=== PATIENT | female | born 1965 | race African-American/Black ===

== ENCOUNTER 2018-02-09 11:46 | Emergency (ER) | payer SELFPAY ==
[2018-02-09 12:03] VITALS: BP 134/73
--- NOTE | 2018-02-09 12:21 | EDM.PDOC ---
ED HPI GENERAL MEDICAL PROBLEM - General Chief Complaint: ENT Problem Stated Complaint: CHIPPED TOOTH Time Seen by Provider: 02/09/18 12:07 Source of Information: Reports: Patient History Limitations: Reports: No Limitations - History of Present Illness INITIAL COMMENTS - FREE TEXT/NARRATIVE: HISTORY AND PHYSICAL: History of present illness: Patient is a 52-year-old female who is brought to the emergency room with complaints of a chipped tooth. Dates while cleaning her bathroom she slipped resulting in her upper jaw hitting the corner of the sink. She states that she has a dentist appointment on 02/16/2018 to further evaluation and management. She denies any loss of consciousness, nausea, vomiting, change in vision or headache. Review of systems: As per history of present illness and below otherwise all systems reviewed and negative. Past medical history: As per history of present illness and as reviewed below otherwise noncontributory. Surgical history: As per history of present illness and as reviewed below otherwise noncontributory. Social history: No reported history of drug or alcohol abuse. Family history: As per history of present illness and as reviewed below otherwise noncontributory. Physical exam: General: Well-developed and well-nourished 52-year-old -[place] female. Alert and oriented. Nontoxic appearing and in no acute distress. HEENT: Atraumatic, normocephalic, pupils equal and reactive bilaterally, negative for conjunctival pallor or scleral icterus, mucous membranes moist, throat clear, neck supple, nontender, trachea midline. Tooth #8 is severely decayed, tooth #9 is chipped. Gums are mildly erythematous. No drooling or trismus noted. No meningeal signs Lungs: Clear to auscultation, breath sounds equal bilaterally, chest nontender. Heart: S1S2, regular rate and rhythm without overt murmur Abdomen: Soft, nondistended, nontender. Negative for masses or hepatosplenomegaly. Negative for costovertebral tenderness. Pelvis: Stable nontender. Genitourinary: Deferred. Rectal: Deferred. Skin: Intact, warm, dry. No lesions or rashes noted. Extremities: Atraumatic, negative for cords or calf pain. Neurovascular unremarkable. Neuro: Awake, alert, oriented. Cranial nerves II through XII unremarkable. Cerebellum unremarkable. Motor and sensory unremarkable throughout. Exam nonfocal. Notes: No root exposure with the dental fracture. Will give patient #15 [place] (NRF) and Pen Vk. Will give antibiotics due to her poor dental care and decay. She has an appointment next week with dentist. Diagnostics: [] Therapeutics: Declines Impression: Dental Fracture Plan: 1. Take your medication as prescribed. Tylenol and Ibuprofen as needed for pain management. [place] as needed for moderate to sever pain, will cause drowsiness, so do not take while driving or needing to be functioning outside the house. 2. Follow up with your dentist as you have arranged. Return to the ED as needed as discussed. Definitive disposition and diagnosis as appropriate pending reevaluation and review of above. Duration: Day(s): Location: Reports: Face Right Upper Tooth/Teeth Pain Score (Numeric/FACES): 10 - Related Data Allergies Allergy/AdvReac Type Severity Reaction Status Date / Time No Known Allergies Allergy Verified 02/09/18 12:03 Home Meds: Home Meds metFORMIN [Glucophage] 1,000 mg PO BID 07/02/14 [History] Glimepiride [Amaryl] 2 mg PO DAILY 11/28/14 [History] Aspirin/Calcium Carbonate/Mag [Aspirin Buffered 325 mg Tab] 325 mg PO DAILY [History] Albuterol [Ventolin HFA] 8 gm INH Q2H PRN 06/26/15 [History] Lisinopril 20 mg PO DAILY 12/24/15 [History] Ranitidine HCl 20 mg PO DAILY 02/09/18 [History] Past Medical History HEENT History: Reports: Other (See Below) Other HEENT History: ear infection Cardiovascular History: Reports: High Cholesterol, Hypertension Respiratory History: Reports: Asthma, Sleep Apnea Gastrointestinal History: Reports: GERD Genitourinary History: Reports: None 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 OB/BYN History: 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 Musculoskeletal History: Reports: Other (See Below) Other Musculoskeletal History: ankle fracture - 2014 Neurological History: Reports: None Psychiatric History: Reports: None Endocrine/Metabolic History: Reports: Diabetes, Type II Hematologic History: Reports: None Immunologic History: Reports: None Oncologic (Cancer) History: Reports: None Dermatologic History: Reports: None - Infectious Disease History Infectious Disease History: Reports: None - Past Surgical History Musculoskeletal Surgical History: Reports: Other (See Below) Social & Family History - Family History Family Medical History: Noncontributory Cardiac: Reports: Hypertension, [place] Respiratory: Reports: Asthma OBGYN: Reports: Musculoskeletal: Reports: Arthritis Neurological: Reports: CVA Endocrine/Metabolic: Reports: Diabetes, type II - Caffeine Use Caffeine Use: Reports: None ED ROS ENT - Review of Systems Review Of Systems: ROS reveals no pertinent complaints other than HPI. ED EXAM, ENT - Physical Exam Exam: See Below (See dictation) Course - Vital Signs Last Recorded V/S: Last Vital Signs Temp 96.1 F 02/09/18 11:58 Pulse 67 02/09/18 11:58 Resp 18 02/09/18 11:58 BP 134/73 02/09/18 11:58 Pulse Ox 99 02/09/18 11:58 Departure - Departure Time of Disposition: 12:22 Disposition: Home, Self-Care 01 Clinical Impression: Tooth fracture Qualifiers: Encounter type: initial encounter Fracture type: closed Qualified Code(s): S02.5XXA - Fracture of tooth (traumatic), initial encounter for closed fracture - Discharge Information Instructions: Tooth Injuries, [id number] Referrals: PCP,None [Primary Care Provider] - Forms: ED Department Discharge Additional Instructions: The following information is given to patients seen in the emergency department who are being discharged to home. This information is to outline your options for follow-up care. We provide all patients seen in our emergency department with a follow-up referral. The need for follow-up, as well as the timing and circumstances, are variable depending upon the specifics of your emergency department visit. If you don't have a primary care physician on staff, we will provide you with a referral. We always advise you to contact your personal physician following an emergency department visit to inform them of the circumstance of the visit and for follow-up with them and/or the need for any referrals to a consulting specialist. The emergency department will also refer you to a specialist when appropriate. This referral assures that you have the opportunity for follow-up care with a specialist. All of these measure are taken in an effort to provide you with optimal care, which includes your follow-up. Under all circumstances we always encourage you to contact your private physician who remains a resource for coordinating your care. When calling for follow-up care, please make the office aware that this follow-up is from your recent emergency room visit. If for any reason you are refused follow-up, please contact the [facility] Emergency Department at and asked to speak to the emergency department charge nurse. [facility] [address] [place] [id number] 1. Take your medication as prescribed. Tylenol and Ibuprofen as needed for pain management. [place] as needed for moderate to sever pain, will cause drowsiness, so do not take while driving or needing to be functioning outside the house. 2. Follow up with your dentist as you have arranged. Return to the ED as needed as discussed.
== END 2018-02-09 13:37 | disposition home or self-care (01) ==
LOC: MW.ED 11:46
DX: S02.5XXA Fracture of tooth (traumatic), initial encounter for closed fracture (principal); E11.9 Type 2 diabetes mellitus without complications; I10 Essential (primary) hypertension; X58.XXXA Exposure to other specified factors, initial encounter
CPT/HCPCS: 99282

== ENCOUNTER 2018-02-21 19:37 | Emergency (ER) | payer SELFPAY ==
[2018-02-21] MEDS ORDERED: Albuterol/Ipratropium 3.0-0.5 MG/3 ML Neb Soln ONE (19:43)
[2018-02-21] MEDS ORDERED: methylPREDNISolone Sodium Succinate 125 MG/2 ML SDV IM ONE (19:53)
--- NOTE | 2018-02-21 19:54 | EDM.PDOC ---
ED HPI GENERAL MEDICAL PROBLEM - General Chief Complaint: Respiratory Problem Stated Complaint: ASTHMA Time Seen by Provider: 02/21/18 19:54 Source of Information: Reports: Patient - History of Present Illness INITIAL COMMENTS - FREE TEXT/NARRATIVE: HISTORY AND PHYSICAL: History of present illness: [Patient with nicotine dependence and asthma presents with wheeze, she has been out of her home medications for asthma for one week and has missed her doctor's appointment for refills. She is in no distress but on auscultation does have expiratory wheeze throughout no distress no retractions no pursed lip breathing she does complain of some shortness of breath throughout the day No fever chills sweats no chest pain headache dizziness or palpitation no bowel or urine symptoms] Review of systems: As per history of present illness and below otherwise all systems reviewed and negative. Past medical history: As per history of present illness and as reviewed below otherwise noncontributory. Surgical history: As per history of present illness and as reviewed below otherwise noncontributory. Social history: No reported history of drug or alcohol abuse. Family history: As per history of present illness and as reviewed below otherwise noncontributory. Physical exam: HEENT: Atraumatic, normocephalic, pupils reactive, negative for conjunctival pallor or scleral icterus, mucous membranes moist, throat clear, neck supple, nontender, trachea midline. Lungs: Clear to auscultation, breath sounds equal bilaterally, chest nontender. Post neb treatment Heart: S1S2, regular, negative for clicks, rubs, or JVD. Abdomen: Soft, nondistended, nontender. Negative for masses or hepatosplenomegaly. Negative for costovertebral tenderness. Pelvis: Stable nontender. Genitourinary: Deferred. Rectal: Deferred. Extremities: Atraumatic, negative for cords or calf pain. Neurovascular unremarkable. Neuro: Awake, alert, oriented. Cranial nerves II through XII unremarkable. Cerebellum unremarkable. Motor and sensory unremarkable throughout. Exam nonfocal. Diagnostics: [Chest 2 views ] Therapeutics: [Albuterol neb Solu-Medrol 125 mg IM Medrol Dosepak HFA Albuterol nebs one box 40 count Nicotine cessation recommended Impression: [ asthma exacerbation Medication noncompliance Nicotine dependence ] Definitive disposition and diagnosis as appropriate pending reevaluation and review of above. - Related Data Allergies Allergy/AdvReac Type Severity Reaction Status Date / Time No Known Allergies Allergy Verified 02/21/18 19:49 Home Meds: Home Meds metFORMIN [Glucophage] 500 mg PO BID 07/02/14 [History] Glimepiride [Amaryl] 2 mg PO BID 11/28/14 [History] Albuterol [Ventolin HFA] 8 gm INH ASDIRECTED PRN 06/26/15 [History] Past Medical History HEENT History: Reports: Other (See Below) Other HEENT History: ear infection Cardiovascular History: Reports: High Cholesterol, Hypertension Respiratory History: Reports: Asthma, Sleep Apnea Gastrointestinal History: Reports: GERD Genitourinary History: Reports: None 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 OB/BYN History: 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 Musculoskeletal History: Reports: Other (See Below) Other Musculoskeletal History: ankle fracture - 2013 Neurological History: Reports: None Psychiatric History: Reports: None Endocrine/Metabolic History: Reports: Diabetes, Type II Hematologic History: Reports: None Immunologic History: Reports: None Oncologic (Cancer) History: Reports: None Dermatologic History: Reports: None - Infectious Disease History Infectious Disease History: Reports: None - Past Surgical History Musculoskeletal Surgical History: Reports: Other (See Below) Social & Family History - Family History Family Medical History: Noncontributory Cardiac: Reports: Hypertension, [place] Respiratory: Reports: Asthma OBGYN: Reports: Musculoskeletal: Reports: Arthritis Neurological: Reports: CVA Endocrine/Metabolic: Reports: Diabetes, type II - Caffeine Use Caffeine Use: Reports: None ED ROS GENERAL - Review of Systems Review Of Systems: See Below ED EXAM, GENERAL - Physical Exam Exam: See Below Course - Vital Signs Last Recorded V/S: Last Vital Signs Temp 97.5 F 02/21/18 19:37 Pulse 82 02/21/18 19:37 Resp 22 H 02/21/18 19:37 BP 170/97 H 02/21/18 19:37 Pulse Ox 100 02/21/18 19:37 - Orders/Labs/Meds Orders: Active Orders 24 hr Category Date Time Status RT Aerosol Therapy [RC] ASDIRECTED Care 02/21/18 20:13 Active Chest 2V [CR] Stat Exams 02/21/18 19:51 Taken Meds: Medications Discontinued Medications Generic Name Dose Route Start Last Admin Trade Name Freq PRN Reason Stop Dose Admin Albuterol/Ipratropium Confirm 02/21/18 19:43 02/21/18 20:13 Duoneb 3.0-0.5 Mg/3 Ml Administered 02/21/18 19:44 Not Given Dose 3 ml .ROUTE .STK-MED ONE Albuterol/Ipratropium 3 ml 02/21/18 20:13 02/21/18 20:16 Duoneb 3.0-0.5 Mg/3 Ml NEB 02/21/18 20:14 3 ml ONETIME ONE Administration Methylprednisolone Sodium Succinate 125 mg 02/21/18 19:53 02/21/18 20:16 Solu-Medrol IM 02/21/18 19:54 125 mg ONETIME ONE Administration Departure - Departure Time of Disposition: 20:31 Disposition: Home, Self-Care 01 Condition: Good Clinical Impression: Asthma exacerbation - Discharge Information Referrals: PCP,None [Primary Care Provider] - Forms: ED Department Discharge Additional Instructions: Medication as prescribed Return if symptoms persist or worsen Follow-up with primary care in 2 weeks sooner as needed [facility] [address] [place] [address] The following information is given to patients seen in the emergency department who are being discharged to home. This information is to outline your options for follow-up care. We provide all patients seen in our emergency department with a follow-up referral. The need for follow-up, as well as the timing and circumstances, are variable depending upon the specifics of your emergency department visit. If you don't have a primary care physician on staff, we will provide you with a referral. We always advise you to contact your personal physician following an emergency department visit to inform them of the circumstance of the visit and for follow-up with them and/or the need for any referrals to a consulting specialist. The emergency department will also refer you to a specialist when appropriate. This referral assures that you have the opportunity for follow-up care with a specialist. All of these measure are taken in an effort to provide you with optimal care, which includes your follow-up. Under all circumstances we always encourage you to contact your private physician who remains a resource for coordinating your care. When calling for follow-up care, please make the office aware that this follow-up is from your recent emergency room visit. If for any reason you are refused follow-up, please contact the [facility] emergency department at and asked to speak to the emergency department charge nurse. - My Orders Last 24 Hours: My Active Orders 02/21/18 19:51 Chest 2V [CR] Stat 02/21/18 20:13 RT Aerosol Therapy [RC] ASDIRECTED - Assessment/Plan Last 24 Hours: My Active Orders 02/21/18 19:51 Chest 2V [CR] Stat 02/21/18 20:13 RT Aerosol Therapy [RC] ASDIRECTED
[2018-02-21] MEDS ORDERED: Albuterol/Ipratropium 3.0-0.5 MG/3 ML Neb Soln NEB ONE (20:13)
[2018-02-21 20:39] VITALS: BP 195/95
--- NOTE | 2018-02-22 13:14 | CR ---
EXAM DATE: 02/21/18 PATIENT'S AGE: 52 Patient: JACI ROLDAN Facility: [place], [place] Site . Site : 1965 Study: XRay Chest [id number]/5/2018 8:15:51 PM Ordering Physician: Brittany Whitman Final Report: INDICATION: Cough, CP TECHNIQUE: Chest 2 views. COMPARISON: 09/09/16 FINDINGS: Cardiovascular and mediastinum: Heart size and vasculature are normal in caliber and appearance. Mediastinum is within normal limits. Lungs and pleural spaces: Lungs are clear. No sign of infiltrate or mass. No sign of pleural effusion. No pneumothorax. Bones and soft tissues: No significant findings. IMPRESSION: Unremarkable chest. Dictated by: Kaleb Way MD @ 02/21/2018 20:31:09 (Electronic Signature) Report Signed by Proxy. BOBBI
== END 2018-02-21 20:36 | disposition home or self-care (01) ==
LOC: MW.ED 19:37
DX: J45.901 Unspecified asthma with (acute) exacerbation (principal); I10 Essential (primary) hypertension; E11.9 Type 2 diabetes mellitus without complications; Z91.14 Patient's other noncompliance with medication regimen
CPT/HCPCS: 71046; 96372; 99285; J2930; 99283

== ENCOUNTER 2018-05-01 04:43 | Emergency (ER) | payer MEDICAID, OTHER ==
[2018-05-01] MEDS ORDERED: Albuterol/Ipratropium 3.0-0.5 MG/3 ML Neb Soln ONE (04:45)
[2018-05-01] MEDS ORDERED: Albuterol/Ipratropium 3.0-0.5 MG/3 ML Neb Soln NEB ONE ×2 (04:54→05:08)
--- NOTE | 2018-05-01 04:56 | EDM.PDOC ---
ED HPI GENERAL MEDICAL PROBLEM - General Chief Complaint: Asthma Stated Complaint: ASTHMA Time Seen by Provider: 05/01/18 04:55 Source of Information: Reports: Patient History Limitations: Reports: No Limitations - History of Present Illness INITIAL COMMENTS - FREE TEXT/NARRATIVE: HISTORY AND PHYSICAL: History of present illness: 52-year-old female is emergency department with chief complaint shortness of breath with past history of asthma. Patient is well-known to emergency department for asthma exacerbations. She states that she started to feel a bit wheezy yesterday. States that she has been unable to fill her prescription for her rescue inhaler. She is still taking a prednisone taper. Denies any cough, chills, fevers, or other signs of systemic infection. Currently denies any chest pain, palpitations, syncopal episodes, or focal neurologic episodes. On exam there is generalized wheezing throughout. Oxygen saturation is 100% on room air. Review of systems: As per history of present illness and below otherwise all systems reviewed and negative. Past medical history: As per history of present illness and as reviewed below otherwise noncontributory. Surgical history: As per history of present illness and as reviewed below otherwise noncontributory. Social history: No reported history of drug or alcohol abuse. Family history: As per history of present illness and as reviewed below otherwise noncontributory. Physical exam: HEENT: Atraumatic, normocephalic, pupils reactive, negative for conjunctival pallor or scleral icterus, mucous membranes moist, throat clear, neck supple, nontender, trachea midline. Lungs: Generalized wheezing throughout, decreased air movement bilaterally, breath sounds equal bilaterally, chest nontender. Heart: S1S2, regular, negative for clicks, rubs, or JVD. Abdomen: Soft, nondistended, nontender. Negative for masses or hepatosplenomegaly. Negative for costovertebral tenderness. Pelvis: Stable nontender. Genitourinary: Deferred. Rectal: Deferred. Extremities: Atraumatic, negative for cords or calf pain. Neurovascular unremarkable. Neuro: Awake, alert, oriented. Cranial nerves II through XII unremarkable. Cerebellum unremarkable. Motor and sensory unremarkable throughout. Exam nonfocal. Diagnostics: Therapeutics: DuoNeb 2, Decadron IM 10 mg Impression: Asthma exacerbation Plan: Patient had significant improvement after 2 DuoNeb's. Did give her a shot of Decadron as well. She is going to continue taking her steroid burst dose she was previously perscribed and hopefully fill her albuterol prescription this week. She was instructed to return to the emergency department if any new or worsening symptoms and follow up with primary care provider Definitive disposition and diagnosis as appropriate pending reevaluation and review of above. - Related Data Allergies Allergy/AdvReac Type Severity Reaction Status Date / Time No Known Allergies Allergy Verified 04/18/18 00:50 Home Meds: Home Meds Albuterol [Ventolin HFA] 8 gm INH ASDIRECTED PRN 06/26/15 [History] Fluticasone/Salmeterol [Advair 250-50] 1 puff INH BID 30 Days #1 diskus [Rx] Lisinopril/Hydrochlorothiazide [Lisinopril-HCTZ 10-12.5 MG] 1 tab PO DAILY 90 Days #90 tablet 04/18/18 [Rx] atorvaSTATin [Lipitor] 40 mg PO BEDTIME 90 Days #30 tab 04/18/18 [Rx] predniSONE [Prednisone] 50 mg PO DAILY #4 tablet 04/18/18 [Rx] Past Medical History HEENT History: Reports: Other (See Below) Other HEENT History: ear infection Cardiovascular History: Reports: High Cholesterol, Hypertension Respiratory History: Reports: Asthma, Sleep Apnea Gastrointestinal History: Reports: GERD Genitourinary History: Reports: None 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 Musculoskeletal History: Reports: Other (See Below) Other Musculoskeletal History: ankle fracture - 2013 Neurological History: Reports: None Psychiatric History: Reports: None Endocrine/Metabolic History: Reports: Diabetes, Type II Hematologic History: Reports: None Immunologic History: Reports: None Oncologic (Cancer) History: Reports: None Dermatologic History: Reports: None - Infectious Disease History Infectious Disease History: Reports: None - Past Surgical History Musculoskeletal Surgical History: Reports: Other (See Below) Social & Family History - Family History Family Medical History: Noncontributory Cardiac: Reports: Hypertension, [place] Respiratory: Reports: Asthma OBGYN: Reports: Musculoskeletal: Reports: Arthritis Neurological: Reports: CVA Endocrine/Metabolic: Reports: Diabetes, type II - Tobacco Use Smoking Status *Q: Current Some Day Smoker Years of Tobacco use: 10 Packs/Tins Daily: 0.1 - Caffeine Use Caffeine Use: Reports: Coffee ED ROS GENERAL - Review of Systems Review Of Systems: ROS reveals no pertinent complaints other than HPI. ED EXAM, GENERAL - Physical Exam Exam: See Below Course - Vital Signs Last Recorded V/S: Last Vital Signs Temp 97.3 F 05/01/18 04:52 Pulse 60 05/01/18 04:52 Resp 20 05/01/18 04:52 BP 134/98 H 05/01/18 04:52 Pulse Ox 100 05/01/18 04:52 - Orders/Labs/Meds Orders: Active Orders 24 hr Category Date Time Status RT Aerosol Therapy [RC] ASDIRECTED Care 05/01/18 04:54 Active RT Aerosol Therapy [RC] ASDIRECTED Care 05/01/18 05:08 Active Dexamethasone Med 05/01/18 05:36 Once 10 mg IM ONETIME ONE Medication Orders Dexamethasone (Dexamethasone) 10 mg IM ONETIME ONE Stop: 05/01/18 05:37 Meds: Medications Generic Name Dose Route Start Last Admin Trade Name Freq PRN Reason Stop Dose Admin Dexamethasone 10 mg 05/01/18 05:36 Dexamethasone IM 05/01/18 05:37 ONETIME ONE Discontinued Medications Generic Name Dose Route Start Last Admin Trade Name Freq PRN Reason Stop Dose Admin Albuterol/Ipratropium 3 ml 05/01/18 04:54 05/01/18 04:54 Duoneb 3.0-0.5 Mg/3 Ml NEB 05/01/18 04:55 3 ml ONETIME ONE Administration Albuterol/Ipratropium 3 ml 05/01/18 05:08 05/01/18 05:19 Duoneb 3.0-0.5 Mg/3 Ml NEB 05/01/18 05:09 3 ml ONETIME ONE Administration Departure - Departure Time of Disposition: 05:39 Disposition: Home, Self-Care 01 Condition: Good Clinical Impression: Asthma exacerbation Qualifiers: Asthma severity: mild Asthma persistence: intermittent Qualified Code(s): J45.21 - Mild intermittent asthma with (acute) exacerbation - Discharge Information Forms: ED Department Discharge Additional Instructions: My general discharge The following information is given to patients seen in the emergency department who are being discharged to home. This information is to outline your options for follow-up care. We provide all patients seen in our emergency department with a follow-up referral. The need for follow-up, as well as the timing and circumstances, are variable depending upon the specifics of your emergency department visit. If you don't have a primary care physician on staff, we will provide you with a referral. We always advise you to contact your personal physician following an emergency department visit to inform them of the circumstance of the visit and for follow-up with them and/or the need for any referrals to a consulting specialist. The emergency department will also refer you to a specialist when appropriate. This referral assures that you have the opportunity for follow-up care with a specialist. All of these measure are taken in an effort to provide you with optimal care, which includes your follow-up. Under all circumstances we always encourage you to contact your private physician who remains a resource for coordinating your care. When calling for follow-up care, please make the office aware that this follow-up is from your recent emergency room visit. If for any reason you are refused follow-up, please contact the [facility] Emergency Department at and asked to speak to the emergency department charge nurse. [facility] [address] [place] [address] Please follow-up with primary care provider Return to emergency department if any new or worsening symptoms - My Orders Last 24 Hours: My Active Orders 05/01/18 04:54 RT Aerosol Therapy [RC] ASDIRECTED 05/01/18 05:08 RT Aerosol Therapy [RC] ASDIRECTED 05/01/18 05:36 Dexamethasone 10 mg IM ONETIME ONE - Assessment/Plan Last 24 Hours: My Active Orders 05/01/18 04:54 RT Aerosol Therapy [RC] ASDIRECTED 05/01/18 05:08 RT Aerosol Therapy [RC] ASDIRECTED 05/01/18 05:36 Dexamethasone 10 mg IM ONETIME ONE
[2018-05-01] MEDS ORDERED: Dexamethasone 10 MG/ML SDV IM ONE (05:36)
[2018-05-01 06:03] VITALS: BP 144/85
== END 2018-05-01 06:01 | disposition home or self-care (01) ==
LOC: MW.ED 04:43
DX: J45.21 Mild intermittent asthma with (acute) exacerbation (principal); I10 Essential (primary) hypertension; E11.9 Type 2 diabetes mellitus without complications; F17.210 Nicotine dependence, cigarettes, uncomplicated
CPT/HCPCS: 99284; J1100; 99283; J7620-GY

== ENCOUNTER 2018-11-17 02:00 | Emergency (ER) | payer SELFPAY ==
[2018-11-17] MEDS ORDERED: predniSONE 20 MG Tab PO ONE (02:06)
[2018-11-17] MEDS ORDERED: Albuterol/Ipratropium 3.0-0.5 MG/3 ML Neb Soln NEB ONE (02:06)
--- NOTE | 2018-11-17 02:13 | EDM.PDOC ---
ED HPI GENERAL MEDICAL PROBLEM - General Chief Complaint: Respiratory Problem Stated Complaint: ASTHMA Time Seen by Provider: 11/17/18 02:10 - History of Present Illness INITIAL COMMENTS - FREE TEXT/NARRATIVE: HISTORY AND PHYSICAL: History of present illness: Is 53-year-old black female with history of asthma who presents with a concern of shortness of breath and asthmatic exacerbation patient states she ran out of her medications and has an appointment on 15 of this month patient denies chest pain fever chills nausea vomiting or other complaints Review of systems: As per history of present illness and below otherwise all systems reviewed and negative. Past medical history: As per history of present illness and as reviewed below otherwise noncontributory. Surgical history: As per history of present illness and as reviewed below otherwise noncontributory. Social history: No reported history of drug or alcohol abuse. Family history: As per history of present illness and as reviewed below otherwise noncontributory. Physical exam: HEENT: Atraumatic, normocephalic, pupils reactive, negative for conjunctival pallor or scleral icterus, mucous membranes moist, throat clear, neck supple, nontender, trachea midline. Lungs: Diminished with an expiratory wheezing noted, breath sounds equal bilaterally, chest nontender. Heart: S1S2, regular, negative for clicks, rubs, or JVD. Abdomen: Soft, nondistended, nontender. Negative for masses or hepatosplenomegaly. Negative for costovertebral tenderness. Pelvis: Stable nontender. Genitourinary: Deferred. Rectal: Deferred. Extremities: Atraumatic, negative for cords or calf pain. Neurovascular unremarkable. Neuro: Awake, alert, oriented. Cranial nerves II through XII unremarkable. Cerebellum unremarkable. Motor and sensory unremarkable throughout. Exam nonfocal. Diagnostics: None Therapeutics: Albuterol ipratropium nebulizer prednisone 60 mg by mouth Impression: #1 asthmatic exacerbation #2 medication refill #3 medical noncompliance Definitive disposition and diagnosis as appropriate pending reevaluation and review of above. - Related Data Allergies Allergy/AdvReac Type Severity Reaction Status Date / Time No Known Allergies Allergy Verified 09/01/18 12:19 Home Meds: Home Meds Albuterol [Ventolin HFA] 8 gm INH ASDIRECTED PRN 06/26/15 [History] Fluticasone/Salmeterol [Advair 250-50] 1 puff INH BID 30 Days #1 diskus [Rx] Lisinopril/Hydrochlorothiazide [Lisinopril-HCTZ 10-12.5 MG] 1 tab PO DAILY 90 Days #90 tablet 04/18/18 [Rx] atorvaSTATin [Lipitor] 40 mg PO BEDTIME 90 Days #30 tab 04/18/18 [Rx] Albuterol [Proventil Neb Soln] 0.63 mg NEB Q6H PRN #15 neb 07/22/18 [Rx] Albuterol [Ventolin HFA] 2 puff INH Q4HR PRN #1 inhaler 07/22/18 [Rx] Glimepiride [Amaryl] 07/22/18 [History] metFORMIN [Glucophage XR] 07/22/18 [History] Past Medical History HEENT History: Reports: Other (See Below) Other HEENT History: ear infection Cardiovascular History: Reports: High Cholesterol, Hypertension Respiratory History: Reports: Asthma, Sleep Apnea Gastrointestinal History: Reports: GERD Genitourinary History: Reports: None 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 BEAUTICIAN APPRENTICE History: 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 Musculoskeletal History: Reports: Other (See Below) Other Musculoskeletal History: ankle fracture - 2013 Neurological History: Reports: None Psychiatric History: Reports: None Endocrine/Metabolic History: Reports: Diabetes, Type II Hematologic History: Reports: None Immunologic History: Reports: None Oncologic (Cancer) History: Reports: None Dermatologic History: Reports: None - Infectious Disease History Infectious Disease History: Reports: None - Past Surgical History Musculoskeletal Surgical History: Reports: Other (See Below) Social & Family History - Family History Family Medical History: Noncontributory Cardiac: Reports: Hypertension, [place] Respiratory: Reports: Asthma OBGYN: Reports: Musculoskeletal: Reports: Arthritis Neurological: Reports: CVA Endocrine/Metabolic: Reports: Diabetes, type II - Caffeine Use Caffeine Use: Reports: Coffee ED ROS GENERAL - Review of Systems Review Of Systems: ROS reveals no pertinent complaints other than HPI. ED EXAM, GENERAL - Physical Exam Exam: See Below (See dictation) Course - Orders/Labs/Meds Orders: Active Orders 24 hr Category Date Time Status RT Aerosol Therapy [RC] ASDIRECTED Care 11/17/18 02:07 Active Meds: Medications Discontinued Medications Generic Name Dose Route Start Last Admin Trade Name Freq PRN Reason Stop Dose Admin Albuterol/Ipratropium 3 ml 11/17/18 02:06 Duoneb 3.0-0.5 Mg/3 Ml NEB 11/17/18 02:07 ONETIME ONE Prednisone 60 mg 11/17/18 02:06 Prednisone PO 11/17/18 02:07 ONETIME ONE Departure - Departure Time of Disposition: 02:11 Disposition: Home, Self-Care 01 Condition: Good Clinical Impression: Asthma, Medication refill, Medical non-compliance - Discharge Information Additional Instructions: The following information is given to patients seen in the emergency department who are being discharged to home. This information is to outline your options for follow-up care. We provide all patients seen in our emergency department with a follow-up referral. The need for follow-up, as well as the timing and circumstances, are variable depending upon the specifics of your emergency department visit. If you don't have a primary care physician on staff, we will provide you with a referral. We always advise you to contact your personal physician following an emergency department visit to inform them of the circumstance of the visit and for follow-up with them and/or the need for any referrals to a consulting specialist. The emergency department will also refer you to a specialist when appropriate. This referral assures that you have the opportunity for followup care with a specialist. All of these measure are taken in an effort to provide you with optimal care, which includes your followup. Under all circumstances we always encourage you to contact your private physician who remains a resource for coordinating your care. When calling for followup care, please make the office aware that this follow-up is from your recent emergency room visit. If for any reason you are refused follow-up, please contact the [facility] emergency department at and asked to speak to the emergency department charge nurse. Albuterol Medrol as prescribed keep scheduled appointment return as needed as discussed - My Orders Last 24 Hours: My Active Orders 11/17/18 02:07 RT Aerosol Therapy [RC] ASDIRECTED - Assessment/Plan Last 24 Hours: My Active Orders 11/17/18 02:07 RT Aerosol Therapy [RC] ASDIRECTED
[2018-11-17 02:39] VITALS: BP 187/111
== END 2018-11-17 02:38 | disposition home or self-care (01) ==
LOC: MW.ED 02:00
DX: J45.901 Unspecified asthma with (acute) exacerbation (principal); E78.00 Pure hypercholesterolemia, unspecified; I10 Essential (primary) hypertension; J45.909 Unspecified asthma, uncomplicated; K21.9 Gastro-esophageal reflux disease without esophagitis; Z76.0 Encounter for issue of repeat prescription; Z91.19 Patient's noncompliance with other medical treatment and regimen; Z79.899 Other long term (current) drug therapy; E11.9 Type 2 diabetes mellitus without complications
CPT/HCPCS: 94640; 99284; A9270; J7620-GY

== ENCOUNTER 2019-02-02 07:49 | Emergency (ER) | payer SELFPAY ==
[2019-02-02] MEDS ORDERED: Albuterol/Ipratropium 3.0-0.5 MG/3 ML Neb Soln NEB ONE (07:58)
[2019-02-02] MEDS ORDERED: Lisinopril 10 MG Tab PO ONE (07:58)
[2019-02-02] MEDS ORDERED: Sodium Chloride 0.9% 2.5 ML Syringe FLUSH PRN (08:03)
[2019-02-02] MEDS ORDERED: Sodium Chloride 0.9% 10 ML Syringe FLUSH PRN (08:03)
--- NOTE | 2019-02-02 08:07 | EDM.PDOC ---
ED HPI GENERAL MEDICAL PROBLEM - General Chief Complaint: Respiratory Problem Stated Complaint: ASTHMA ATTACK Time Seen by Provider: 02/02/19 07:50 - History of Present Illness INITIAL COMMENTS - FREE TEXT/NARRATIVE: HISTORY AND PHYSICAL: History of present illness: Patient is a 53-year-old black female history of asthma and hypertension who report concern of shortness of breath and medication refill patient is noncompliant and has had trouble filling her medications due to financial pressure she is in the process of working with social service to secure these. She denies chest pain nausea vomiting palpitations fever chills or other complaints. Review of systems: As per history of present illness and below otherwise all systems reviewed and negative. Past medical history: As per history of present illness and as reviewed below otherwise noncontributory. Surgical history: As per history of present illness and as reviewed below otherwise noncontributory. Social history: No reported history of drug or alcohol abuse. Family history: As per history of present illness and as reviewed below otherwise noncontributory. Physical exam: HEENT: Atraumatic, normocephalic, pupils reactive, negative for conjunctival pallor or scleral icterus, mucous membranes moist, throat clear, neck supple, nontender, trachea midline. Lungs: Diminished scattered in Current wheezing no crackles, breath sounds equal bilaterally, chest nontender. Heart: S1S2, regular, negative for clicks, rubs, or JVD. Abdomen: Soft, nondistended, nontender. Negative for masses or hepatosplenomegaly. Negative for costovertebral tenderness. Pelvis: Stable nontender. Genitourinary: Deferred. Rectal: Deferred. Extremities: Atraumatic, negative for cords or calf pain. Neurovascular unremarkable. Neuro: Awake, alert, oriented. Cranial nerves II through XII unremarkable. Cerebellum unremarkable. Motor and sensory unremarkable throughout. Exam nonfocal. Diagnostics: CBC CMP troponin PT/INR chest x-ray EKG BNP[] Therapeutics: Saline lock albuterol ipratropium nebulizer prednisone 60 mg by mouth[] Impression: #1 dyspnea #2 asthmatic exacerbation #3 hypertension #4 history of asthma #5 medical noncompliance[] Definitive disposition and diagnosis as appropriate pending reevaluation and review of above. - Related Data Allergies Allergy/AdvReac Type Severity Reaction Status Date / Time No Known Allergies Allergy Verified 02/02/19 07:55 Home Meds: Home Meds Lisinopril/Hydrochlorothiazide [Lisinopril-HCTZ 10-12.5 MG] 1 tab PO DAILY 90 Days #90 tablet 04/18/18 [Rx] atorvaSTATin [Lipitor] 40 mg PO BEDTIME 90 Days #30 tab 04/18/18 [Rx] Albuterol [Proventil Neb Soln] 0.63 mg NEB Q6H PRN #15 neb 07/22/18 [Rx] Albuterol [Ventolin HFA] 2 puff INH Q4HR PRN #1 inhaler 07/22/18 [Rx] Glimepiride [Amaryl] 07/22/18 [History] metFORMIN [Glucophage XR] 07/22/18 [History] Past Medical History HEENT History: Reports: Other (See Below) Other HEENT History: ear infection Cardiovascular History: Reports: High Cholesterol, Hypertension Respiratory History: Reports: Asthma, Sleep Apnea Gastrointestinal History: Reports: GERD Genitourinary History: Reports: None 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 VENTILATOR History: 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 Musculoskeletal History: Reports: Other (See Below) Other Musculoskeletal History: ankle fracture - 2013 Neurological History: Reports: None Psychiatric History: Reports: None Endocrine/Metabolic History: Reports: Diabetes, Type II Hematologic History: Reports: None Immunologic History: Reports: None Oncologic (Cancer) History: Reports: None Dermatologic History: Reports: None - Infectious Disease History Infectious Disease History: Reports: Chicken Pox, Measles, Mumps - Past Surgical History Musculoskeletal Surgical History: Reports: Other (See Below) Social & Family History - Family History Family Medical History: Noncontributory Cardiac: Reports: Hypertension, [place] Respiratory: Reports: Asthma OBGYN: Reports: Musculoskeletal: Reports: Arthritis Neurological: Reports: CVA Endocrine/Metabolic: Reports: Diabetes, type II - Tobacco Use Smoking Status *Q: Light Tobacco Smoker Years of Tobacco use: 30 Packs/Tins Daily: 0.1 - Caffeine Use Caffeine Use: Reports: Coffee - Recreational Drug Use Recreational Drug Use: No ED ROS GENERAL - Review of Systems Review Of Systems: ROS reveals no pertinent complaints other than HPI. ED EXAM, GENERAL - Physical Exam Exam: See Below (See dictation) Course - Vital Signs Last Recorded V/S: Last Vital Signs Temp 36.6 C 02/02/19 09:14 Pulse 64 02/02/19 09:14 Resp 15 02/02/19 09:14 BP 190/93 H 02/02/19 09:14 Pulse Ox 96 02/02/19 09:14 - Orders/Labs/Meds Orders: Active Orders 24 hr Category Date Time Status Cardiac Monitoring [RC] . DIRECTED Care 02/02/19 08:03 Active EKG Documentation Completion [RC] STAT Care 02/02/19 08:03 Active RT Aerosol Therapy [RC] ASDIRECTED Care 02/02/19 07:59 Active Sodium Chloride 0.9% [Saline Flush] Med 02/02/19 08:03 Active 10 ml FLUSH ASDIRECTED PRN Sodium Chloride 0.9% [Saline Flush] Med 02/02/19 08:03 Active 2.5 ml FLUSH ASDIRECTED PRN Saline Lock Insert [OM.PC] Stat Oth 02/02/19 08:03 Ordered Medication Orders Sodium Chloride (Saline Flush) 10 ml FLUSH ASDIRECTED PRN PRN Reason: Keep Vein Open Last Admin: 02/02/19 08:32 Dose: 10 ml Sodium Chloride (Saline Flush) 2.5 ml FLUSH ASDIRECTED PRN PRN Reason: Keep Vein Open Last Admin: 02/02/19 08:32 Dose: 2.5 ml Labs: Laboratory Tests 02/02/19 02/02/19 02/02/19 Range/Units 08:28 08:28 08:28 WBC 4.75 (4.0-11.0) K/uL RBC 3.91 L (4.30-5.90) M/uL Hgb 11.4 L (12.0-16.0) g/dL Hct 35.4 L (36.0-46.0) % MCV 90.5 (80.0-98.0) fL MCH 29.2 (27.0-32.0) pg MCHC 32.2 (31.0-37.0) g/dL RDW Std Deviation 44.5 (28.0-62.0) fl RDW Coeff of Jeannette 13 (11.0-15.0) % Plt Count 179 (150-400) K/uL MPV 9.90 (7.40-12.00) fL Neut % (Auto) 56.7 (48.0-80.0) % Lymph % (Auto) 28.8 (16.0-40.0) % [place] % (Auto) 10.9 (0.0-15.0) % Eos % (Auto) 3.4 (0.0-7.0) % Baso % (Auto) 0.2 (0.0-1.5) % Neut # (Auto) 2.7 (1.4-5.7) K/uL Lymph # (Auto) 1.4 (0.6-2.4) K/uL [place] # (Auto) 0.5 (0.0-0.8) K/uL Eos # (Auto) 0.2 (0.0-0.7) K/uL Baso # (Auto) 0.0 (0.0-0.1) K/uL Nucleated RBC % 0.0 /100WBC Nucleated RBCs # 0 K/uL INR Sodium 141 (136-145) mmol/L Potassium 3.6 (3.5-5.1) mmol/L Chloride 103 (98-107) mmol/L Carbon Dioxide 26.3 (21.0-32.0) mmol/L BUN 18 (7.0-18.0) mg/dL Creatinine 0.8 (0.6-1.0) mg/dL Est Cr Clr Drug Dosing 77.27 mL/min Estimated GFR (MDRD) > 60.0 ml/min Glucose 122 H (74-106) mg/dL Calcium 9.3 (8.5-10.1) mg/dL Total Bilirubin 0.6 (0.2-1.0) mg/dL AST 35 (15-37) IU/L ALT 36 (14-63) IU/L Alkaline Phosphatase 73 (46-116) U/L Troponin I < 0.050 (0.000-0.056) ng/mL B-Natriuretic Peptide 92 (<100) PG/ML Total Protein 7.4 (6.4-8.2) g/dL Albumin 3.9 (3.4-5.0) g/dL Globulin 3.5 (2.6-4.0) g/dL Albumin/Globulin Ratio 1.1 (0.9-1.6) 02/02/19 Range/Units 08:28 WBC (4.0-11.0) K/uL RBC (4.30-5.90) M/uL Hgb (12.0-16.0) g/dL Hct (36.0-46.0) % MCV (80.0-98.0) fL MCH (27.0-32.0) pg MCHC (31.0-37.0) g/dL RDW Std Deviation (28.0-62.0) fl RDW Coeff of Jeannette (11.0-15.0) % Plt Count (150-400) K/uL MPV (7.40-12.00) fL Neut % (Auto) (48.0-80.0) % Lymph % (Auto) (16.0-40.0) % [place] % (Auto) (0.0-15.0) % Eos % (Auto) (0.0-7.0) % Baso % (Auto) (0.0-1.5) % Neut # (Auto) (1.4-5.7) K/uL Lymph # (Auto) (0.6-2.4) K/uL [place] # (Auto) (0.0-0.8) K/uL Eos # (Auto) (0.0-0.7) K/uL Baso # (Auto) (0.0-0.1) K/uL Nucleated RBC % /100WBC Nucleated RBCs # K/uL INR 1.08 Sodium (136-145) mmol/L Potassium (3.5-5.1) mmol/L Chloride (98-107) mmol/L Carbon Dioxide (21.0-32.0) mmol/L BUN (7.0-18.0) mg/dL Creatinine (0.6-1.0) mg/dL Est Cr Clr Drug Dosing mL/min Estimated GFR (MDRD) ml/min Glucose (74-106) mg/dL Calcium (8.5-10.1) mg/dL Total Bilirubin (0.2-1.0) mg/dL AST (15-37) IU/L ALT (14-63) IU/L Alkaline Phosphatase (46-116) U/L Troponin I (0.000-0.056) ng/mL B-Natriuretic Peptide (<100) PG/ML Total Protein (6.4-8.2) g/dL Albumin (3.4-5.0) g/dL Globulin (2.6-4.0) g/dL Albumin/Globulin Ratio (0.9-1.6) Meds: Medications Generic Name Dose Route Start Last Admin Trade Name Freq PRN Reason Stop Dose Admin Sodium Chloride 10 ml 02/02/19 08:03 02/02/19 08:32 Saline Flush FLUSH 10 ml ASDIRECTED PRN Administration Keep Vein Open Sodium Chloride 2.5 ml 02/02/19 08:03 02/02/19 08:32 Saline Flush FLUSH 2.5 ml ASDIRECTED PRN Administration Keep Vein Open Discontinued Medications Generic Name Dose Route Start Last Admin Trade Name Freq PRN Reason Stop Dose Admin Albuterol/Ipratropium 3 ml 02/02/19 07:58 02/02/19 08:17 Duoneb 3.0-0.5 Mg/3 Ml NEB 02/02/19 07:59 3 ml ONETIME ONE Administration Lisinopril 20 mg 02/02/19 07:58 02/02/19 08:31 Prinivil PO 02/02/19 07:59 20 mg ONETIME ONE Administration Departure - Departure Time of Disposition: 09:33 Disposition: Home, Self-Care 01 Condition: Good Clinical Impression: Asthma, Hypertension, Medical non-compliance - Discharge Information Referrals: PCP,None [Primary Care Provider] - Forms: ED Department Discharge Additional Instructions: The following information is given to patients seen in the emergency department who are being discharged to home. This information is to outline your options for follow-up care. We provide all patients seen in our emergency department with a follow-up referral. The need for follow-up, as well as the timing and circumstances, are variable depending upon the specifics of your emergency department visit. If you don't have a primary care physician on staff, we will provide you with a referral. We always advise you to contact your personal physician following an emergency department visit to inform them of the circumstance of the visit and for follow-up with them and/or the need for any referrals to a consulting specialist. The emergency department will also refer you to a specialist when appropriate. This referral assures that you have the opportunity for followup care with a specialist. All of these measure are taken in an effort to provide you with optimal care, which includes your followup. Under all circumstances we always encourage you to contact your private physician who remains a resource for coordinating your care. When calling for followup care, please make the office aware that this follow-up is from your recent emergency room visit. If for any reason you are refused follow-up, please contact the [facility] emergency department at and asked to speak to the emergency department charge nurse. [facility] [address] [place] [id number] Albuterol Medrol lisinopril as prescribed follow-up primary medical doctor and/ or clinic above as discussed return as needed as discussed - My Orders Last 24 Hours: My Active Orders 02/02/19 07:59 RT Aerosol Therapy [RC] ASDIRECTED 02/02/19 08:03 Cardiac Monitoring [RC] . DIRECTED EKG Documentation Completion [RC] STAT Sodium Chloride 0.9% [Saline Flush] 10 ml FLUSH ASDIRECTED PRN Sodium Chloride 0.9% [Saline Flush] 2.5 ml FLUSH ASDIRECTED PRN Saline Lock Insert [OM.PC] Stat - Assessment/Plan Last 24 Hours: My Active Orders 02/02/19 07:59 RT Aerosol Therapy [RC] ASDIRECTED 02/02/19 08:03 Cardiac Monitoring [RC] . DIRECTED EKG Documentation Completion [RC] STAT Sodium Chloride 0.9% [Saline Flush] 10 ml FLUSH ASDIRECTED PRN Sodium Chloride 0.9% [Saline Flush] 2.5 ml FLUSH ASDIRECTED PRN Saline Lock Insert [OM.PC] Stat
--- NOTE | 2019-02-02 08:54 | CR ---
EXAMINATION: Portable chest radiograph. HISTORY: Shortness of breath. FINDINGS: The trachea is midline. The cardiomediastinal silhouette is within normal limits. Minimal right basilar atelectasis and/or infiltrate with a trace right pleural effusion. Osseous structures appear unremarkable. IMPRESSION: Minimal right basilar atelectasis or infiltrate with a trace right pleural effusion.
[2019-02-02 08:58] LABS: CHLORIDE,CL 103 mmol/L (98-107); SODIUM,NA 141 mmol/L (136-145)
[2019-02-02 09:52] VITALS: BP 170/86
== END 2019-02-02 10:10 | disposition home or self-care (01) ==
LOC: MW.ED 07:49
DX: J45.901 Unspecified asthma with (acute) exacerbation (principal); I10 Essential (primary) hypertension; Z91.14 Patient's other noncompliance with medication regimen; E78.00 Pure hypercholesterolemia, unspecified; E11.9 Type 2 diabetes mellitus without complications; F17.210 Nicotine dependence, cigarettes, uncomplicated; K21.9 Gastro-esophageal reflux disease without esophagitis; Z79.84 Long term (current) use of oral hypoglycemic drugs; Z79.899 Other long term (current) drug therapy
CPT/HCPCS: 36415; 71045; 80053; 83880; 84484; 85025; 85610; 93005; 94640; 99285; A9270; 99284; J7620-GY

== ENCOUNTER 2019-04-08 08:06 | Emergency (ER) | payer MEDICAID ==
[2019-04-08] MEDS ORDERED: Albuterol/Ipratropium 3.0-0.5 MG/3 ML Neb Soln NEB ONE (08:09)
[2019-04-08] MEDS ORDERED: methylPREDNISolone Sodium Succinate 125 MG/2 ML SDV IM ONE (08:30)
--- NOTE | 2019-04-08 08:32 | EDM.PDOC ---
ED HPI GENERAL MEDICAL PROBLEM - General Chief Complaint: Respiratory Problem Stated Complaint: TROUBLE BREATHING Time Seen by Provider: 04/08/19 08:31 Source of Information: Reports: Patient - History of Present Illness INITIAL COMMENTS - FREE TEXT/NARRATIVE: HISTORY AND PHYSICAL: History of present illness: [Presents with audible wheeze and shortness of breath she has been out of her medications for a couple of weeks no fever nausea vomiting chills sweats no chest pain headache dizziness palpitation no bowel or urine symptoms], per slip breathing or accessory muscles Review of systems: As per history of present illness and below otherwise all systems reviewed and negative. Past medical history: As per history of present illness and as reviewed below otherwise noncontributory. Surgical history: As per history of present illness and as reviewed below otherwise noncontributory. Social history: No reported history of drug or alcohol abuse. Family history: As per history of present illness and as reviewed below otherwise noncontributory. Physical exam: HEENT: Atraumatic, normocephalic, pupils reactive, negative for conjunctival pallor or scleral icterus, mucous membranes moist, throat clear, neck supple, nontender, trachea midline. Lungs: Clear to auscultation, breath sounds equal bilaterally, chest nontender. Post DuoNeb and Solu-Medrol, on arrival she did have audible wheeze Heart: S1S2, regular, negative for clicks, rubs, or JVD. Abdomen: Soft, nondistended, nontender. Negative for masses or hepatosplenomegaly. Negative for costovertebral tenderness. Pelvis: Stable nontender. Genitourinary: Deferred. Rectal: Deferred. Extremities: Atraumatic, negative for cords or calf pain. Neurovascular unremarkable. Neuro: Awake, alert, oriented. Cranial nerves II through XII unremarkable. Cerebellum unremarkable. Motor and sensory unremarkable throughout. Exam nonfocal. Diagnostics: [Chest 1 view EKG ] Therapeutics: [DuoNeb Solu-Medrol 125 mg IM Patient provided 1 month of her primary medications Follow-up with primary care provider as scheduled on the ] Impression: [ asthma exacerbation-improved/resolved Medication noncompliance Chronic history of baseline ] Definitive disposition and diagnosis as appropriate pending reevaluation and review of above. Chest Tightness Pain Score (Numeric/FACES): 8 - Related Data Allergies Allergy/AdvReac Type Severity Reaction Status Date / Time No Known Allergies Allergy Verified 04/08/19 08:13 Home Meds: Home Meds Lisinopril/Hydrochlorothiazide [Lisinopril-HCTZ 10-12.5 MG] 1 tab PO DAILY 90 Days #90 tablet 04/18/18 [Rx] atorvaSTATin [Lipitor] 40 mg PO BEDTIME 90 Days #30 tab 04/18/18 [Rx] Albuterol [Proventil Neb Soln] 0.63 mg NEB Q6H PRN #15 neb 07/22/18 [Rx] Albuterol [Ventolin HFA] 2 puff INH Q4HR PRN #1 inhaler 07/22/18 [Rx] Glimepiride [Amaryl] 2 mg PO DAILY 07/22/18 [History] metFORMIN [Glucophage XR] 1,000 mg PO DAILY 07/22/18 [History] Past Medical History HEENT History: Reports: Other (See Below) Other HEENT History: ear infection Cardiovascular History: Reports: High Cholesterol, Hypertension Respiratory History: Reports: Asthma, Sleep Apnea Gastrointestinal History: Reports: GERD Genitourinary History: Reports: None [employer] History: Reports: Other [employer] History: 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 Musculoskeletal History: Reports: Other (See Below) Other Musculoskeletal History: ankle fracture - 2014 Neurological History: Reports: None Psychiatric History: Reports: None Endocrine/Metabolic History: Reports: Diabetes, Type II Hematologic History: Reports: None Immunologic History: Reports: None Oncologic (Cancer) History: Reports: None Dermatologic History: Reports: None - Infectious Disease History Infectious Disease History: Reports: None - Past Surgical History Musculoskeletal Surgical History: Reports: Other (See Below) Social & Family History - Family History Family Medical History: Noncontributory Cardiac: Reports: Hypertension, [place] Respiratory: Reports: Asthma OBGYN: Reports: Musculoskeletal: Reports: Arthritis Neurological: Reports: CVA Endocrine/Metabolic: Reports: Diabetes, type II - Tobacco Use Smoking Status *Q: Never Smoker - Caffeine Use Caffeine Use: Reports: Coffee - Recreational Drug Use Recreational Drug Use: No ED ROS GENERAL - Review of Systems Review Of Systems: See Below ED EXAM, GENERAL - Physical Exam Exam: See Below Course - Vital Signs Last Recorded V/S: Last Vital Signs Temp 96.5 F 04/08/19 08:14 Pulse 79 04/08/19 09:00 Resp 18 04/08/19 09:00 BP 152/107 H 04/08/19 09:00 Pulse Ox 98 04/08/19 09:00 - Orders/Labs/Meds Orders: Active Orders 24 hr Category Date Time Status Blood Glucose Check, Bedside [RC] ONETIME Care 04/08/19 08:26 Active EKG 12 Lead [EKG Documentation Completion] [RC] STAT Care 04/08/19 08:30 Active RT Aerosol Therapy [RC] ASDIRECTED Care 04/08/19 08:09 Active Chest 1V Frontal [CR] Stat Exams 04/08/19 08:40 Taken Meds: Medications Discontinued Medications Generic Name Dose Route Start Last Admin Trade Name Freq PRN Reason Stop Dose Admin Albuterol/Ipratropium 3 ml 04/08/19 08:09 04/08/19 08:14 Duoneb 3.0-0.5 Mg/3 Ml NEB 04/08/19 08:10 3 ml ONETIME ONE Administration Lisinopril/HCTZ 1 tab 04/08/19 08:35 04/08/19 08:59 Lisinopril-Hctz 10-12.5 Mg PO 04/08/19 08:36 1 tab ONETIME ONE Administration Methylprednisolone Sodium Succinate 125 mg 04/08/19 08:30 04/08/19 08:59 Solu-Medrol IM 04/08/19 08:31 125 mg ONETIME ONE Administration Departure - Departure Time of Disposition: 09:32 Disposition: Home, Self-Care 01 Condition: Good Clinical Impression: Asthma exacerbation Qualifiers: Asthma severity: mild Asthma persistence: intermittent Qualified Code(s): J45.21 - Mild intermittent asthma with (acute) exacerbation - Discharge Information Referrals: PCP,Unknown [Primary Care Provider] - Forms: ED Department Discharge Additional Instructions: Medication as prescribed Return if symptoms persist or worsen Follow-up with primary care as scheduled on the at [address] [address] The following information is given to patients seen in the emergency department who are being discharged to home. This information is to outline your options for follow-up care. We provide all patients seen in our emergency department with a follow-up referral. The need for follow-up, as well as the timing and circumstances, are variable depending upon the specifics of your emergency department visit. If you don't have a primary care physician on staff, we will provide you with a referral. We always advise you to contact your personal physician following an emergency department visit to inform them of the circumstance of the visit and for follow-up with them and/or the need for any referrals to a consulting specialist. The emergency department will also refer you to a specialist when appropriate. This referral assures that you have the opportunity for follow-up care with a specialist. All of these measure are taken in an effort to provide you with optimal care, which includes your follow-up. Under all circumstances we always encourage you to contact your private physician who remains a resource for coordinating your care. When calling for follow-up care, please make the office aware that this follow-up is from your recent emergency room visit. If for any reason you are refused follow-up, please contact the [facility] emergency department at and asked to speak to the emergency department charge nurse. - My Orders Last 24 Hours: My Active Orders 04/08/19 08:09 RT Aerosol Therapy [RC] ASDIRECTED 04/08/19 08:26 Blood Glucose Check, Bedside [RC] ONETIME 04/08/19 08:30 EKG 12 Lead [EKG Documentation Completion] [RC] STAT 04/08/19 08:40 Chest 1V Frontal [CR] Stat - Assessment/Plan Last 24 Hours: My Active Orders 04/08/19 08:09 RT Aerosol Therapy [RC] ASDIRECTED 04/08/19 08:26 Blood Glucose Check, Bedside [RC] ONETIME 04/08/19 08:30 EKG 12 Lead [EKG Documentation Completion] [RC] STAT 04/08/19 08:40 Chest 1V Frontal [CR] Stat
[2019-04-08] MEDS ORDERED: Lisinopril/Hydrochlorothiazide 10-12.5 MG Tab PO ONE (08:35)
[2019-04-08 09:42] VITALS: BP 160/79
--- NOTE | 2019-04-08 09:53 | CR ---
Severe asthma Portable chest No comparison studies are available. Findings: Slight prominence of the cardiac silhouette. Lungs are clear. No acute airspace or interstitial process. Impression: No acute pulmonary process. Dictated by Farrah Maria MD @ Apr 08 2019 9:49AM Signed by Dr. Farrah Maria @ Apr 08 2019 9:51AM
== END 2019-04-08 09:42 | disposition home or self-care (01) ==
LOC: MW.ED 08:06
DX: J45.21 Mild intermittent asthma with (acute) exacerbation (principal); E78.00 Pure hypercholesterolemia, unspecified; I10 Essential (primary) hypertension; E11.9 Type 2 diabetes mellitus without complications; Z91.14 Patient's other noncompliance with medication regimen; Z79.84 Long term (current) use of oral hypoglycemic drugs
CPT/HCPCS: 71045; 82962; 93005; 94640; 99285; A9270; J2930; J7620-GY

== ENCOUNTER 2019-04-13 12:20 | Emergency (ER) | payer MEDICAID ==
[2019-04-13] MEDS ORDERED: Sodium Chloride 0.9% 10 ML Syringe FLUSH PRN (12:21)
[2019-04-13] MEDS ORDERED: Sodium Chloride 0.9% 10 ML SDV IV PRN (12:21)
[2019-04-13] MEDS ORDERED: Sodium Chloride 0.9% 2.5 ML Syringe FLUSH PRN (12:21)
[2019-04-13] MEDS ORDERED: Sodium Chloride 0.9% 1,000 ML IV ONE (12:23)
--- NOTE | 2019-04-13 12:34 | EDM.PDOC ---
ED HPI GENERAL MEDICAL PROBLEM - General Chief Complaint: General Stated Complaint: AMB Time Seen by Provider: 04/13/19 12:33 Source of Information: Reports: Patient History Limitations: Reports: No Limitations - History of Present Illness INITIAL COMMENTS - FREE TEXT/NARRATIVE: HISTORY AND PHYSICAL: History of present illness: patient is a 53-year-old female well-known to the ED presents via EMS for dizziness and feeling weak. She states she was at work feeling lightheaded and couldn't see straight and felt dizzy and weak. She reports dizziness has improved at this time. She denies fevers, chills, chest pain, nausea, vomiting, abdominal pain, diarrhea. She has some shortness of breath but states she always does due to her asthma. Past medical history significant for diabetes, asthma, hypertension. Review of systems: As per history of present illness and below otherwise all systems reviewed and negative. Past medical history: As per history of present illness and as reviewed below otherwise noncontributory. Surgical history: As per history of present illness and as reviewed below otherwise noncontributory. Social history: No reported history of drug or alcohol abuse. Family history: As per history of present illness and as reviewed below otherwise noncontributory. Physical exam: General: Patient sitting comfortably in no acute distress and nontoxic appearing HEENT: Atraumatic, normocephalic, pupils reactive, negative for conjunctival pallor or scleral icterus, mucous membranes moist, throat clear, neck supple, nontender, trachea midline. No meningeal signs. Lungs: Breath sound diminished with end expiratory wheezing throughout all lung rick, chest nontender. Heart: S1S2, regular, negative for clicks, rubs, or overt murmur. Abdomen: Soft, nondistended, nontender. Negative for masses or hepatosplenomegaly. Negative for costovertebral tenderness. No rigidity, rebound , guarding. Pelvis: Stable nontender. Genitourinary: Deferred. Rectal: Deferred. Extremities: Atraumatic, negative for cords or calf pain. Neurovascular unremarkable. Neuro: Awake, alert, oriented. Cranial nerves II through XII unremarkable. Cerebellum unremarkable. Motor and sensory unremarkable throughout. Exam nonfocal. Notes: Diagnostics: CBC, CMP, troponin, EKG, CXR, UA Therapeutics: 1L NS IV DuoNeb Prescriptions: Impression: UTI, dehydration Plan: Take antibiotic and drink plenty of fluids as discussed Follow up with primary care provider Return to ED as needed as discussed Definitive disposition and diagnosis as appropriate pending reevaluation and review of above. Left Middle Back Pain Score (Numeric/FACES): 7 - Related Data Allergies Allergy/AdvReac Type Severity Reaction Status Date / Time No Known Allergies Allergy Verified 04/08/19 08:13 Home Meds: Home Meds Lisinopril/Hydrochlorothiazide [Lisinopril-HCTZ 10-12.5 MG] 1 tab PO DAILY 90 Days #90 tablet 04/18/18 [Rx] atorvaSTATin [Lipitor] 40 mg PO BEDTIME 90 Days #30 tab 04/18/18 [Rx] Albuterol [Proventil Neb Soln] 0.63 mg NEB Q6H PRN #15 neb 07/22/18 [Rx] Albuterol [Ventolin HFA] 2 puff INH Q4HR PRN #1 inhaler 07/22/18 [Rx] Glimepiride [Amaryl] 2 mg PO DAILY 07/22/18 [History] metFORMIN [Glucophage XR] 1,000 mg PO DAILY 07/22/18 [History] Ciprofloxacin HCl [Cipro] 500 mg PO BID #14 tablet 04/13/19 [Rx] Past Medical History HEENT History: Reports: Other (See Below) Other HEENT History: ear infection Cardiovascular History: Reports: High Cholesterol, Hypertension Respiratory History: Reports: Asthma, Sleep Apnea Gastrointestinal History: Reports: GERD Genitourinary History: Reports: None [employer]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 Musculoskeletal History: Reports: Other (See Below) Other Musculoskeletal History: ankle fracture - 2013 Neurological History: Reports: None Psychiatric History: Reports: None Endocrine/Metabolic History: Reports: Diabetes, Type II Hematologic History: Reports: None Immunologic History: Reports: None Oncologic (Cancer) History: Reports: None Dermatologic History: Reports: None - Infectious Disease History Infectious Disease History: Reports: None - Past Surgical History Musculoskeletal Surgical History: Reports: Other (See Below) Social & Family History - Family History Family Medical History: Noncontributory Cardiac: Reports: Hypertension, [place] Respiratory: Reports: Asthma OBGYN: Reports: Musculoskeletal: Reports: Arthritis Neurological: Reports: CVA Endocrine/Metabolic: Reports: Diabetes, type II - Tobacco Use Smoking Status *Q: Current Every Day Smoker Years of Tobacco use: 5 Packs/Tins Daily: 0.4 - Caffeine Use Caffeine Use: Reports: Coffee - Recreational Drug Use Recreational Drug Use: No ED ROS GENERAL - Review of Systems Review Of Systems: ROS reveals no pertinent complaints other than HPI. ED EXAM, GENERAL - Physical Exam Exam: See Below (see dictation) Course - Vital Signs Last Recorded V/S: Last Vital Signs Temp 96.4 F 04/13/19 12:23 Pulse 85 04/13/19 12:23 Resp 18 04/13/19 12:23 BP 125/84 04/13/19 12:23 Pulse Ox 96 04/13/19 13:01 - Orders/Labs/Meds Orders: Active Orders 24 hr Category Date Time Status EKG 12 Lead [EKG Documentation Completion] [RC] STAT Care 04/13/19 12:24 Active RT Aerosol Therapy [RC] ASDIRECTED Care 04/13/19 13:01 Active Sodium Chloride 0.9% [Normal Saline] Med 04/13/19 12:21 Active 10 ml IV ASDIRECTED PRN Sodium Chloride 0.9% [Saline Flush] Med 04/13/19 12:21 Active 10 ml FLUSH ASDIRECTED PRN Sodium Chloride 0.9% [Saline Flush] Med 04/13/19 12:21 Active 2.5 ml FLUSH ASDIRECTED PRN Peripheral IV Insertion Adult [OM.PC] Stat Oth 04/13/19 12:21 Ordered Medication Orders Sodium Chloride (Saline Flush) 10 ml FLUSH ASDIRECTED PRN PRN Reason: Keep Vein Open Last Admin: 04/13/19 12:37 Dose: 10 ml Sodium Chloride (Saline Flush) 2.5 ml FLUSH ASDIRECTED PRN PRN Reason: Keep Vein Open Last Admin: 04/13/19 12:37 Dose: 2.5 ml Sodium Chloride (Normal Saline) 10 ml IV ASDIRECTED PRN PRN Reason: IV Use Last Admin: 04/13/19 12:37 Dose: 10 ml Labs: Laboratory Tests 04/13/19 04/13/19 04/13/19 Range/Units 12:33 12:56 13:10 WBC 6.51 (4.0-11.0) K/uL RBC 4.53 (4.30-5.90) M/uL Hgb 13.4 (12.0-16.0) g/dL Hct 40.7 (36.0-46.0) % MCV 89.8 (80.0-98.0) fL MCH 29.6 (27.0-32.0) pg MCHC 32.9 (31.0-37.0) g/dL RDW Std Deviation 45.0 (28.0-62.0) fl RDW Coeff of Jeannette 14 (11.0-15.0) % Plt Count 247 (150-400) K/uL MPV 10.80 (7.40-12.00) fL Neut % (Auto) 70.0 (48.0-80.0) % Lymph % (Auto) 19.7 (16.0-40.0) % Carroll % (Auto) 8.0 (0.0-15.0) % Eos % (Auto) 2.0 (0.0-7.0) % Baso % (Auto) 0.3 (0.0-1.5) % Neut # (Auto) 4.6 (1.4-5.7) K/uL Lymph # (Auto) 1.3 (0.6-2.4) K/uL Carroll # (Auto) 0.5 (0.0-0.8) K/uL Eos # (Auto) 0.1 (0.0-0.7) K/uL Baso # (Auto) 0.0 (0.0-0.1) K/uL Nucleated RBC % 0.0 /100WBC Nucleated RBCs # 0 K/uL INR 1.08 Sodium 139 (136-145) mmol/L Potassium 4.5 (3.5-5.1) mmol/L Chloride 105 (98-107) mmol/L Carbon Dioxide 26.8 (21.0-32.0) mmol/L BUN 21 H (7.0-18.0) mg/dL Creatinine 1.6 H (0.6-1.0) mg/dL Est Cr Clr Drug Dosing TNP Estimated GFR (MDRD) 40.6 ml/min Glucose 120 H (74-106) mg/dL Calcium 9.6 (8.5-10.1) mg/dL Total Bilirubin 0.4 (0.2-1.0) mg/dL AST 28 (15-37) IU/L ALT 40 (14-63) IU/L Alkaline Phosphatase 74 (46-116) U/L Troponin I < 0.050 (0.000-0.056) ng/mL Total Protein 7.2 (6.4-8.2) g/dL Albumin 3.7 (3.4-5.0) g/dL Globulin 3.5 (2.6-4.0) g/dL Albumin/Globulin Ratio 1.1 (0.9-1.6) Urine Color Urine Appearance Urine pH (5.0-8.0) Ur Specific [place] (1.001-1.035) Urine Protein (NEGATIVE) mg/dL Urine Glucose (UA) (NEGATIVE) mg/dL Urine Ketones (NEGATIVE) mg/dL Urine Occult Blood (NEGATIVE) Urine Nitrite (NEGATIVE) Urine Bilirubin (NEGATIVE) Urine Ictotest Urine Urobilinogen (<2.0) EU/dL Ur Leukocyte Esterase (NEGATIVE) Urine RBC (0-2/HPF) Urine WBC (0-5/HPF) Ur Epithelial Cells (NONE-FEW) Urine Bacteria (NEGATIVE) Hyaline Casts (0-2/LPF) Urine Mucus (NONE-MOD) 04/13/19 Range/Units 13:25 WBC (4.0-11.0) K/uL RBC (4.30-5.90) M/uL Hgb (12.0-16.0) g/dL Hct (36.0-46.0) % MCV (80.0-98.0) fL MCH (27.0-32.0) pg MCHC (31.0-37.0) g/dL RDW Std Deviation (28.0-62.0) fl RDW Coeff of Jeannette (11.0-15.0) % Plt Count (150-400) K/uL MPV (7.40-12.00) fL Neut % (Auto) (48.0-80.0) % Lymph % (Auto) (16.0-40.0) % Carroll % (Auto) (0.0-15.0) % Eos % (Auto) (0.0-7.0) % Baso % (Auto) (0.0-1.5) % Neut # (Auto) (1.4-5.7) K/uL Lymph # (Auto) (0.6-2.4) K/uL Carroll # (Auto) (0.0-0.8) K/uL Eos # (Auto) (0.0-0.7) K/uL Baso # (Auto) (0.0-0.1) K/uL Nucleated RBC % /100WBC Nucleated RBCs # K/uL INR Sodium (136-145) mmol/L Potassium (3.5-5.1) mmol/L Chloride (98-107) mmol/L Carbon Dioxide (21.0-32.0) mmol/L BUN (7.0-18.0) mg/dL Creatinine (0.6-1.0) mg/dL Est Cr Clr Drug Dosing Estimated GFR (MDRD) ml/min Glucose (74-106) mg/dL Calcium (8.5-10.1) mg/dL Total Bilirubin (0.2-1.0) mg/dL AST (15-37) IU/L ALT (14-63) IU/L Alkaline Phosphatase (46-116) U/L Troponin I (0.000-0.056) ng/mL Total Protein (6.4-8.2) g/dL Albumin (3.4-5.0) g/dL Globulin (2.6-4.0) g/dL Albumin/Globulin Ratio (0.9-1.6) Urine Color DARK YELLOW Urine Appearance CLOUDY Urine pH 5.5 (5.0-8.0) Ur Specific [place] >= 1.030 (1.001-1.035) Urine Protein 100 H (NEGATIVE) mg/dL Urine Glucose (UA) NEGATIVE (NEGATIVE) mg/dL Urine Ketones NEGATIVE (NEGATIVE) mg/dL Urine Occult Blood NEGATIVE (NEGATIVE) Urine Nitrite NEGATIVE (NEGATIVE) Urine Bilirubin SMALL H (NEGATIVE) Urine Ictotest NEGATIVE Urine Urobilinogen 0.2 (<2.0) EU/dL Ur Leukocyte Esterase NEGATIVE (NEGATIVE) Urine RBC 1-3 (0-2/HPF) Urine WBC 6-8 (0-5/HPF) Ur Epithelial Cells MANY (NONE-FEW) Urine Bacteria 1+ H (NEGATIVE) Hyaline Casts 1-3 (0-2/LPF) Urine Mucus HEAVY (NONE-MOD) Meds: Medications Generic Name Dose Route Start Last Admin Trade Name Freq PRN Reason Stop Dose Admin Sodium Chloride 10 ml 04/13/19 12:21 04/13/19 12:37 Saline Flush FLUSH 10 ml ASDIRECTED PRN Administration Keep Vein Open Sodium Chloride 2.5 ml 04/13/19 12:21 04/13/19 12:37 Saline Flush FLUSH 2.5 ml ASDIRECTED PRN Administration Keep Vein Open Sodium Chloride 10 ml 04/13/19 12:21 04/13/19 12:37 Normal Saline IV 10 ml ASDIRECTED PRN Administration IV Use Discontinued Medications Generic Name Dose Route Start Last Admin Trade Name Delmerq PRN Reason Stop Dose Admin Albuterol/Ipratropium 3 ml 04/13/19 13:01 04/13/19 13:08 Duoneb 3.0-0.5 Mg/3 Ml NEB 04/13/19 13:02 3 ml ONETIME ONE Administration Sodium Chloride 1,000 mls @ 999 mls/hr 04/13/19 12:23 04/13/19 12:36 Normal Saline IV 04/13/19 13:23 999 mls/hr .Bolus ONE Administration Departure - Departure Time of Disposition: 14:57 Disposition: Home, Self-Care 01 Condition: Good Clinical Impression: UTI (urinary tract infection), Dehydration - Discharge Information Prescriptions: Ciprofloxacin HCl [Cipro] 500 mg PO BID #14 tablet Referrals: PCP,None [Primary Care Provider] - Forms: ED Department Discharge Additional Instructions: The following information is given to patients seen in the emergency department who are being discharged to home. This information is to outline your options for follow-up care. We provide all patients seen in our emergency department with a follow-up referral. The need for follow-up, as well as the timing and circumstances, are variable depending upon the specifics of your emergency department visit. If you don't have a primary care physician on staff, we will provide you with a referral. We always advise you to contact your personal physician following an emergency department visit to inform them of the circumstance of the visit and for follow-up with them and/or the need for any referrals to a consulting specialist. The emergency department will also refer you to a specialist when appropriate. This referral assures that you have the opportunity for follow-up care with a specialist. All of these measure are taken in an effort to provide you with optimal care, which includes your follow-up. Under all circumstances we always encourage you to contact your private physician who remains a resource for coordinating your care. When calling for follow-up care, please make the office aware that this follow-up is from your recent emergency room visit. If for any reason you are refused follow-up, please contact the [facility] Emergency Department at and asked to speak to the emergency department charge nurse. [facility] [address] [place] [id number] [facility] [address] [place] [id number] Take antibiotic and drink plenty of fluids as discussed Follow up with primary care provider Return to ED as needed as discussed - My Orders Last 24 Hours: My Active Orders 04/13/19 13:01 RT Aerosol Therapy [RC] ASDIRECTED - Assessment/Plan Last 24 Hours: My Active Orders 04/13/19 13:01 RT Aerosol Therapy [RC] ASDIRECTED
[2019-04-13] MEDS ORDERED: Albuterol/Ipratropium 3.0-0.5 MG/3 ML Neb Soln NEB ONE (13:01)
[2019-04-13 13:23] LABS: CHLORIDE,CL 105 mmol/L (98-107); SODIUM,NA 139 mmol/L (136-145)
--- NOTE | 2019-04-13 14:54 | CR ---
INDICATION: Dizziness TECHNIQUE: Chest 2 views COMPARISON: 04/08/2019 FINDINGS: Cardiovascular and mediastinum: Heart size and vasculature are normal in caliber and appearance. Lungs and pleural spaces: Lungs are clear. No sign of infiltrate or mass. No sign of pleural effusion. No pneumothorax. Bones and soft tissues: No significant findings. IMPRESSION: No acute findings and no significant changes from the prior exam. Dictated by Wu Quintero MD @ Apr 13 2019 2:52PM Signed by Dr. Wu Quintero @ Apr 13 2019 2:53PM
[2019-04-13 15:00] VITALS: BP 143/73
== END 2019-04-13 15:21 | disposition home or self-care (01) ==
LOC: MW.ED 12:20
DX: N39.0 Urinary tract infection, site not specified (principal); E86.0 Dehydration; E11.9 Type 2 diabetes mellitus without complications; K21.9 Gastro-esophageal reflux disease without esophagitis; I10 Essential (primary) hypertension; F17.210 Nicotine dependence, cigarettes, uncomplicated; Z79.899 Other long term (current) drug therapy
CPT/HCPCS: 36415; 71046; 80053; 81001; 84484; 85025; 85610; 93005; 94640; 96360; 96361; 99285; J7040; J7050; J7620-GY

== ENCOUNTER 2019-06-12 09:30 | Emergency (ER) | payer MEDICAID ==
[2019-06-12] MEDS ORDERED: Metoprolol Tartrate 5 MG/5 ML SDV IVPUSH SCH (10:00)
[2019-06-12] MEDS ORDERED: Sodium Chloride 0.9% 1,000 ML IV SCH (10:00)
[2019-06-12] MEDS ORDERED: Albuterol/Ipratropium 3.0-0.5 MG/3 ML Neb Soln NEB ONE (10:02)
[2019-06-12] MEDS ORDERED: methylPREDNISolone Sodium Succinate 125 MG/2 ML SDV IV ONE (10:05)
--- NOTE | 2019-06-12 10:10 | EDM.PDOC ---
ED HPI GENERAL MEDICAL PROBLEM - General Chief Complaint: Chest Pain Stated Complaint: UNKNOWN Time Seen by Provider: 06/12/19 09:45 Source of Information: Reports: Patient History Limitations: Reports: No Limitations - History of Present Illness INITIAL COMMENTS - FREE TEXT/NARRATIVE: 54-year-old female presents to ED with complaints of dizziness and chest pain that initially started in her back. Patient presents via EMS. Onset of chest pain was a few hours ago while at work at [employer]. Chest pain is transient, lasts a few seconds, described as being sharp and pulling in nature, and is felt initially in her back and radiates to anterior right and left chest. Patient denies having the chest pain currently. The chest pain is not associated with activity and rated as 7/10 when present. She has felt dizziness since yesterday evening. Patient reports running out of her blood pressure medication and asthma inhaler a few days ago and has not been able to refill these as of yet due to financial constraints. Patient also reports occasional blurry vision, sore throat, nausea and shortness of breath at baseline. Chest Pain Score (Numeric/FACES): 9 - Related Data Allergies Allergy/AdvReac Type Severity Reaction Status Date / Time No Known Allergies Allergy Verified 06/12/19 09:46 Home Meds: Home Meds Lisinopril/Hydrochlorothiazide [Lisinopril-HCTZ 10-12.5 MG] 1 tab PO DAILY 90 Days #90 tablet 04/18/18 [Rx] atorvaSTATin [Lipitor] 40 mg PO BEDTIME 90 Days #30 tab 04/18/18 [Rx] Albuterol [Ventolin HFA] 2 puff INH Q4HR PRN #1 inhaler 07/22/18 [Rx] Glimepiride [Amaryl] 2 mg PO DAILY 07/22/18 [History] metFORMIN [Glucophage XR] 500 mg PO DAILY 07/22/18 [History] Albuterol Sulfate [Albuterol Sulfate Hfa] 18 gm IH Q4HR PRN 30 Days #1 hfa.aer.ad 06/12/19 [Rx] Azithromycin [Zithromax] 250 mg PO DAILY 5 Days #6 tab 06/12/19 [Rx] predniSONE [Prednisone] 40 mg PO DAILY 4 Days #8 tablet 06/12/19 [Rx] Past Medical History HEENT History: Reports: Other (See Below) Other HEENT History: ear infection Cardiovascular History: Reports: Arrhythmia, High Cholesterol, Hypertension Respiratory History: Reports: Asthma, Sleep Apnea Gastrointestinal History: Reports: GERD Genitourinary History: Reports: None GEOPHYSICIST History: Reports: Other GEOPHYSICIST History: 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 Musculoskeletal History: Reports: Other (See Below) Other Musculoskeletal History: ankle fracture - 2013 Neurological History: Reports: None Psychiatric History: Reports: Depression Endocrine/Metabolic History: Reports: Diabetes, Type II Hematologic History: Reports: None Immunologic History: Reports: None Oncologic (Cancer) History: Reports: None Dermatologic History: Reports: None - Infectious Disease History Infectious Disease History: Reports: None - Past Surgical History Musculoskeletal Surgical History: Reports: Other (See Below) Social & Family History - Family History Family Medical History: Noncontributory Cardiac: Reports: Hypertension, [place] Respiratory: Reports: Asthma OBGYN: Reports: Musculoskeletal: Reports: Arthritis Neurological: Reports: CVA Endocrine/Metabolic: Reports: Diabetes, type II - Tobacco Use Smoking Status *Q: Current Every Day Smoker Years of Tobacco use: 8 Packs/Tins Daily: 0.2 - Caffeine Use Caffeine Use: Reports: Coffee - Recreational Drug Use Recreational Drug Use: No ED ROS GENERAL - Review of Systems Review Of Systems: ROS reveals no pertinent complaints other than HPI. ED EXAM, GENERAL - Physical Exam Exam: See Below General Appearance: Alert, No Apparent Distress Ears: Normal External Exam, Hearing Grossly Normal Head: Atraumatic, Normocephalic Neck: Normal Inspection, Supple Respiratory/Chest: Wheezing (bilateral in all lung rick) Cardiovascular: Normal Peripheral Pulses, Regular Rate, Rhythm GI/Abdominal: Normal Bowel Sounds, Soft, Non-Tender, No Distention (Female) Exam: Deferred Rectal (Female) Exam: Deferred Back Exam: Normal Inspection, Other (Thoracic spine non-tender to palpation) Extremities: Normal Inspection, Normal Range of Motion Neurological: Alert, Oriented, No Motor/Sensory Deficits Psychiatric: Normal Affect, Normal Mood Skin Exam: Warm, Dry, Intact Course - Vital Signs Last Recorded V/S: Last Vital Signs Temp 96.5 F 06/12/19 09:30 Pulse 58 L 06/12/19 10:22 Resp 14 06/12/19 10:22 BP 156/83 H 06/12/19 10:22 Pulse Ox 98 06/12/19 10:22 - Orders/Labs/Meds Orders: Active Orders 24 hr Category Date Time Status EKG Documentation Completion [RC] STAT Care 06/12/19 09:47 Active RT Aerosol Therapy [RC] ASDIRECTED Care 06/12/19 10:02 Active RT Aerosol Therapy [RC] ASDIRECTED Care 06/12/19 10:56 Ordered Sodium Chloride 0.9% [Normal Saline] 1,000 ml Med 06/12/19 10:00 Active IV STAT Medication Orders Sodium Chloride (Normal Saline) 1,000 mls @ 125 mls/hr IV STAT MARCELO Last Admin: 06/12/19 10:00 Dose: 125 mls/hr Labs: Laboratory Tests 06/12/19 06/12/19 06/12/19 Range/Units 09:20 09:20 11:45 WBC 5.30 (4.0-11.0) K/uL RBC 3.97 L (4.30-5.90) M/uL Hgb 11.5 L (12.0-16.0) g/dL Hct 35.4 L (36.0-46.0) % MCV 89.2 (80.0-98.0) fL MCH 29.0 (27.0-32.0) pg MCHC 32.5 (31.0-37.0) g/dL RDW Std Deviation 46.5 (28.0-62.0) fl RDW Coeff of Jeannette 14 (11.0-15.0) % Plt Count 231 (150-400) K/uL MPV 10.30 (7.40-12.00) fL Neut % (Auto) 61.1 (48.0-80.0) % Lymph % (Auto) 24.5 (16.0-40.0) % [place] % (Auto) 10.0 (0.0-15.0) % Eos % (Auto) 4.0 (0.0-7.0) % Baso % (Auto) 0.4 (0.0-1.5) % Neut # (Auto) 3.2 (1.4-5.7) K/uL Lymph # (Auto) 1.3 (0.6-2.4) K/uL [place] # (Auto) 0.5 (0.0-0.8) K/uL Eos # (Auto) 0.2 (0.0-0.7) K/uL Baso # (Auto) 0.0 (0.0-0.1) K/uL Nucleated RBC % 0.0 /100WBC Nucleated RBCs # 0 K/uL Sodium 144 (136-145) mmol/L Potassium 3.8 (3.5-5.1) mmol/L Chloride 105 (98-107) mmol/L Carbon Dioxide 25.8 (21.0-32.0) mmol/L BUN 15 (7.0-18.0) mg/dL Creatinine 1.0 (0.6-1.0) mg/dL Est Cr Clr Drug Dosing TNP Estimated GFR (MDRD) 57.4 ml/min Glucose 80 (74-106) mg/dL Calcium 9.2 (8.5-10.1) mg/dL Total Bilirubin 0.4 (0.2-1.0) mg/dL AST 23 (15-37) IU/L ALT 27 (14-63) IU/L Alkaline Phosphatase 69 (46-116) U/L Troponin I < 0.050 (0.000-0.056) ng/mL Total Protein 7.4 (6.4-8.2) g/dL Albumin 3.9 (3.4-5.0) g/dL Globulin 3.5 (2.6-4.0) g/dL Albumin/Globulin Ratio 1.1 (0.9-1.6) Lipase 97 (73-393) U/L Urine Color YELLOW Urine Appearance CLEAR Urine pH 6.0 (5.0-8.0) Ur Specific [place] <= 1.005 (1.001-1.035) Urine Protein NEGATIVE (NEGATIVE) mg/dL Urine Glucose (UA) NEGATIVE (NEGATIVE) mg/dL Urine Ketones NEGATIVE (NEGATIVE) mg/dL Urine Occult Blood NEGATIVE (NEGATIVE) Urine Nitrite NEGATIVE (NEGATIVE) Urine Bilirubin NEGATIVE (NEGATIVE) Urine Urobilinogen 0.2 (<2.0) EU/dL Ur Leukocyte Esterase NEGATIVE (NEGATIVE) Meds: Medications Generic Name Dose Route Start Last Admin Trade Name Freq PRN Reason Stop Dose Admin Sodium Chloride 1,000 mls @ 125 mls/hr 06/12/19 10:00 06/12/19 10:00 Normal Saline IV 125 mls/hr STAT MARCELO Administration Discontinued Medications Generic Name Dose Route Start Last Admin Trade Name Freq PRN Reason Stop Dose Admin Albuterol/Ipratropium 3 ml 06/12/19 10:02 06/12/19 10:24 Duoneb 3.0-0.5 Mg/3 Ml NEB 06/12/19 10:03 3 ml ONETIME ONE Administration Albuterol/Ipratropium 3 ml 06/12/19 10:56 06/12/19 11:38 Duoneb 3.0-0.5 Mg/3 Ml [facility] 06/12/19 10:57 3 ml ONETIME STA Administration Methylprednisolone Sodium Succinate 125 mg 06/12/19 10:05 06/12/19 10:28 Solu-Medrol IV 06/12/19 10:06 125 mg STAT ONE Administration Methylprednisolone Sodium Succinate 125 mg 06/12/19 11:01 06/12/19 11:42 Solu-Medrol IVPUSH 06/12/19 11:02 125 mg ONETIME STA Administration Metoprolol Tartrate 5 mg 06/12/19 10:00 06/12/19 10:00 Lopressor IVPUSH 06/12/19 10:11 5 mg Q5M MARCELO Administration - Re-Assessments/Exams Free Text/Narrative Re-Assessment/Exam: 06/12/19 10:29 EKG on presentation shows normal sinus rhythm. CXR shows no acute cardiopulmonary process based on my read. 06/12/19 11:05 Patient reports feeling a bit better since DuoNeb treatment and IV solumedrol 125 mg. Patient still has wheezing bilaterally. Will give another dose of IV solumedrol 125 mg and reassess after second DuoNeb treatment. 06/12/19 12:24 Patient reports improvement in breathing after second Duoneb treatment. Clear respiratory sounds with no wheezing appreciated on repeat respiratory exam. Patient denies any chest pain or dizziness. Departure - Departure Time of Disposition: 12:02 Disposition: Home, Self-Care 01 Condition: Good Clinical Impression: Atypical chest pain, Dizziness, Wheezing Asthma exacerbation Qualifiers: Asthma severity: mild Asthma persistence: intermittent Qualified Code(s): J45.21 - Mild intermittent asthma with (acute) exacerbation Prescriptions: Albuterol Sulfate [Albuterol Sulfate Hfa] 18 gm IH Q4HR PRN 30 Days #1 hfa.aer.ad PRN Reason: Wheezing Azithromycin [Zithromax] 250 mg PO DAILY 5 Days #6 tab predniSONE [Prednisone] 40 mg PO DAILY 4 Days #8 tablet Instructions: Asthma Attack Referrals: PCP,None [Primary Care Provider] - 1 Week Forms: ED Department Discharge Additional Instructions: Take all medications as prescribed. Return to ER if worsening shortness of breath, wheezing or chest pain. Follow-up with your primary care provider within 1 week. - My Orders Last 24 Hours: My Active Orders 06/12/19 10:02 RT Aerosol Therapy [RC] ASDIRECTED 06/12/19 10:56 RT Aerosol Therapy [RC] ASDIRECTED - Assessment/Plan Last 24 Hours: My Active Orders 06/12/19 10:02 RT Aerosol Therapy [RC] ASDIRECTED 06/12/19 10:56 RT Aerosol Therapy [RC] ASDIRECTED Assessment:: 1. Wheezing secondary to asthma exacerbation, improved. 2. Non-anginal chest pain, resolved. 3. Dizziness, improved. 4. Hypertension. 5. Nicotine dependence. Plan: Patient noted improvement in shortness of breath and wheezing after DuoNeb treatments. Patient offered hospital admission, however, refused at this time and stated that she would like to go home. Provided prescription for azithromycin, prednisone and albuterol inhaler to [facility]. Recommended smoking cessation. Recommended follow-up with PCP within 1 week.
[2019-06-12 10:20] LABS: BLOOD UREA NITROGEN,BUN 15 mg/dL (7.0-18.0); CARBON DIOXIDE,CO2 25.8 mmol/L (21.0-32.0); CHLORIDE,CL 105 mmol/L (98-107); GLUCOSE RANDOM 80 mg/dL (74-106); LIPASE 97 U/L (73-393); POTASSIUM,K 3.8 mmol/L (3.5-5.1); SODIUM,NA 144 mmol/L (136-145)
--- NOTE | 2019-06-12 10:23 | CR ---
INDICATION: pain TECHNIQUE: Chest 1 view. COMPARISON: 04/13/19 FINDINGS: Cardiovascular and mediastinum: Heart size and vasculature are normal in caliber and appearance. Mediastinum is within normal limits. Lungs and pleural space: Lungs are clear. No sign of infiltrate or mass. No sign of pleural effusion. No pneumothorax. Bones and soft tissues: No significant findings. IMPRESSION: Unremarkable chest. Dictated by: Kaleb Way MD @ 06/12/2019 10:21:12 (Electronically Signed)
[2019-06-12] MEDS ORDERED: Albuterol/Ipratropium 3.0-0.5 MG/3 ML Neb Soln NEB STA (10:56)
[2019-06-12] MEDS ORDERED: methylPREDNISolone Sodium Succinate 125 MG/2 ML SDV IVPUSH STA (11:01)
[2019-06-12 15:12] VITALS: BP 139/79; PULSE 59
== END 2019-06-12 12:40 | disposition home or self-care (01) ==
LOC: MW.ED 09:30
DX: J45.21 Mild intermittent asthma with (acute) exacerbation (principal); R07.89 Other chest pain; R42 Dizziness and giddiness; I10 Essential (primary) hypertension; E11.9 Type 2 diabetes mellitus without complications; E78.00 Pure hypercholesterolemia, unspecified; F17.210 Nicotine dependence, cigarettes, uncomplicated; Z79.899 Other long term (current) drug therapy; Z79.84 Long term (current) use of oral hypoglycemic drugs
CPT/HCPCS: 36415; 71045; 80053; 81003; 83690; 84484; 85025; 93005; 94640; 96361; 96374; 96375; 96376; 99285; J2930; J3490; J7040; J7620-GY

== ENCOUNTER 2019-06-23 14:08 | Inpatient (IN) | payer MEDICAID ==
[2019-06-23] MEDS ORDERED: Sodium Chloride 0.9% 10 ML Syringe FLUSH PRN (14:09)
[2019-06-23] MEDS ORDERED: Sodium Chloride 0.9% 10 ML SDV IV PRN (14:09)
[2019-06-23] MEDS ORDERED: Sodium Chloride 0.9% 2.5 ML Syringe FLUSH PRN (14:09)
--- NOTE | 2019-06-23 14:12 | EDM.PDOC ---
ED HPI GENERAL MEDICAL PROBLEM - General Chief Complaint: Neuro Symptoms/Deficits Stated Complaint: STROKE Time Seen by Provider: 06/23/19 14:12 Source of Information: Reports: Patient History Limitations: Reports: No Limitations - History of Present Illness INITIAL COMMENTS - FREE TEXT/NARRATIVE: HISTORY AND PHYSICAL: History of present illness: Patient is a 54-year-old female who presents to the emergency room by EMS with complaints of slurred/thickened speech, some right-sided facial tingling and right-sided facial droop. States she woke up with the tingling sensation to her face. She states called EMS at 1400 as she felt unwell, although could not pin- point a specific timeframe of when she started to feel this way. Patient was evaluated in our emergency room approximately one week ago was seen for dizziness and hypertension. She had not followed up after that appointment. Has felt generally unwell since her last ER visit. She has not had any weakness or deficits. She denies any injury, trauma or falls. Patient denies any fever, chills, headache, change in vision, syncope or near syncope. Denies any chest pain, back pain, shortness of breath or cough. Denies any abdominal pain, nausea, vomiting, diarrhea, constipation or dysuria. Has not noted any blood in urine or stool. Patient has been eating and drinking appropriately. Review of systems: As per history of present illness and below otherwise all systems reviewed and negative. Past medical history: As per history of present illness and as reviewed below otherwise noncontributory. Surgical history: As per history of present illness and as reviewed below otherwise noncontributory. Social history: See social history for further information Family history: As per history of present illness and as reviewed below otherwise noncontributory. Physical exam: General: Well-developed and well-nourished 54-year-old -[place] female. Alert and oriented although she does have slowed response that she is appearing to search for her words. At times she appears confused, but answers questions appropriately. Vital signs have been reviewed by me, blood pressure is elevated. HEENT: Symmetrical facial movement, normocephalic, pupils equal and reactive bilaterally, negative for conjunctival pallor or scleral icterus, mucous membranes moist, TMs normal bilaterally, throat clear, neck supple, nontender, trachea midline. No drooling or trismus noted. No meningeal signs. No hot potato voice noted. Lungs: Expiratory wheezing throughout lung rick, breath sounds equal bilaterally, chest nontender. Heart: S1S2, regular rate and rhythm without overt murmur Abdomen: Soft, nondistended, nontender. Negative for masses or hepatosplenomegaly. Negative for costovertebral tenderness. Pelvis: Stable nontender. Skin: Intact, warm, dry. No lesions or rashes noted. Extremities: Atraumatic, moves all extremities per self without difficulty or deficits, negative for cords or calf pain. Neurovascular unremarkable. Neuro: Awake, alert, oriented. Cranial nerves II through XII unremarkable. Cerebellum unremarkable. Motor and sensory unremarkable throughout. Exam nonfocal. Notes: GCS: 15, NIH: 5. Dr Guzmán was directly involved in this patient care and has evaluated this patient as well. Negative head CT. Lab work is unremarkable. BP is lower in with the propranolol. Dr Lin was consulted on this patient and agreeable to keeping this patient. Diagnostics: CBC, CMP, PT/INR, Troponin, EKG, Head CT, Shipper/Receiver, CXR Therapeutics: IV fluids, Propranolol, Lisinopril Impression: Hypertension Urgency Asthma exacerbation Plan: Inpatient admission to Med/Surg Definitive disposition and diagnosis as appropriate pending reevaluation and review of above. - Related Data Allergies Allergy/AdvReac Type Severity Reaction Status Date / Time No Known Allergies Allergy Verified 06/23/19 14:11 Home Meds: Home Meds atorvaSTATin [Lipitor] 40 mg PO BEDTIME 90 Days #30 tab 04/18/18 [Rx] Albuterol [Ventolin HFA] 2 puff INH Q4HR PRN #1 inhaler 07/22/18 [Rx] Glimepiride [Amaryl] 2 mg PO DAILY 07/22/18 [History] Albuterol Sulfate [Albuterol Sulfate Hfa] 18 gm IH Q4HR PRN 30 Days #1 hfa.aer.ad 06/12/19 [Rx] predniSONE [Prednisone] 40 mg PO DAILY 4 Days #8 tablet 06/12/19 [Rx] Lisinopril/Hydrochlorothiazide [Lisinopril-HCTZ 10-12.5 MG] 10 - 12.5 mg PO DAILY 06/23/19 [History] metFORMIN HCl [Metformin HCl] 1,000 mg PO DAILY 06/23/19 [History] Past Medical History HEENT History: Reports: Other (See Below) Other HEENT History: ear infection Cardiovascular History: Reports: High Cholesterol, Hypertension Respiratory History: Reports: Asthma, Sleep Apnea Gastrointestinal History: Reports: GERD Genitourinary History: Reports: None GRILL COOK History: Reports: 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 GRILL COOK History: 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 Musculoskeletal History: Reports: Other (See Below) Other Musculoskeletal History: ankle fracture - 2014 Neurological History: Reports: None Psychiatric History: Reports: None Endocrine/Metabolic History: Reports: Diabetes, Type II Hematologic History: Reports: None Immunologic History: Reports: None Oncologic (Cancer) History: Reports: None Dermatologic History: Reports: None - Infectious Disease History Infectious Disease History: Reports: None - Past Surgical History Musculoskeletal Surgical History: Reports: Other (See Below) Social & Family History - Family History Family Medical History: Noncontributory Cardiac: Reports: Hypertension, CT Respiratory: Reports: Asthma OBGYN: Reports: Musculoskeletal: Reports: Arthritis Neurological: Reports: CVA Endocrine/Metabolic: Reports: Diabetes, type II - Caffeine Use Caffeine Use: Reports: Coffee ED ROS GENERAL - Review of Systems Review Of Systems: ROS reveals no pertinent complaints other than HPI. ED EXAM, NEURO - Physical Exam Exam: See Below (See dictation) Course - Vital Signs Last Recorded V/S: Last Vital Signs Temp 98.1 F 06/23/19 14:09 Pulse 65 06/23/19 15:36 Resp 18 06/23/19 15:36 BP 184/80 H 06/23/19 15:36 Pulse Ox 100 06/23/19 15:36 - Orders/Labs/Meds Orders: Active Orders 24 hr Category Date Time Status Admission Status [Patient Status] [ADT] Stat ADT 06/23/19 15:33 Active Cardiac Monitoring [RC] . DIRECTED Care 06/23/19 14:09 Active Nursing Bedside Swallow Screen [RC] ASDIRECTED Care 06/23/19 14:09 Active RT Aerosol Therapy [RC] ASDIRECTED Care 06/23/19 15:06 Active Stroke Education, General [RC] Click to Edit Care 06/23/19 14:09 Active Sodium Chloride 0.9% [Normal Saline] Med 06/23/19 14:09 Active 10 ml IV ASDIRECTED PRN Sodium Chloride 0.9% [Normal Saline] 1,000 ml Med 06/23/19 14:18 Active IV STAT Sodium Chloride 0.9% [Saline Flush] Med 06/23/19 14:09 Active 10 ml FLUSH ASDIRECTED PRN Sodium Chloride 0.9% [Saline Flush] Med 06/23/19 14:09 Active 2.5 ml FLUSH ASDIRECTED PRN Peripheral IV Insertion Adult [OM.PC] Stat Oth 06/23/19 14:09 Ordered Peripheral IV Insertion Adult [OM.PC] Stat Ot 06/23/19 14:09 Ordered Medication Orders Sodium Chloride (Normal Saline) 1,000 mls @ 150 mls/hr IV STAT ONE Stop: 06/23/19 20:57 Last Admin: 06/23/19 14:23 Dose: 150 mls/hr Sodium Chloride (Saline Flush) 10 ml FLUSH ASDIRECTED PRN PRN Reason: Keep Vein Open Last Admin: 06/23/19 14:43 Dose: 10 ml Sodium Chloride (Saline Flush) 2.5 ml FLUSH ASDIRECTED PRN PRN Reason: Keep Vein Open Last Admin: 06/23/19 14:42 Dose: 2.5 ml Sodium Chloride (Normal Saline) 10 ml IV ASDIRECTED PRN PRN Reason: IV Use Last Admin: 06/23/19 14:43 Dose: 10 ml Labs: Laboratory Tests 06/23/19 06/23/19 06/23/19 Range/Units 14:17 14:17 14:17 WBC 7.39 (4.0-11.0) K/uL RBC 4.13 L (4.30-5.90) M/uL Hgb 11.9 L (12.0-16.0) g/dL Hct 36.4 (36.0-46.0) % MCV 88.1 (80.0-98.0) fL MCH 28.8 (27.0-32.0) pg MCHC 32.7 (31.0-37.0) g/dL RDW Std Deviation 46.2 (28.0-62.0) fl RDW Coeff of Jeannette 14 (11.0-15.0) % Plt Count 203 (150-400) K/uL MPV 10.10 (7.40-12.00) fL Neut % (Auto) 65.6 (48.0-80.0) % Lymph % (Auto) 23.3 (16.0-40.0) % [place] % (Auto) 9.1 (0.0-15.0) % Eos % (Auto) 1.9 (0.0-7.0) % Baso % (Auto) 0.1 (0.0-1.5) % Neut # (Auto) 4.9 (1.4-5.7) K/uL Lymph # (Auto) 1.7 (0.6-2.4) K/uL [place] # (Auto) 0.7 (0.0-0.8) K/uL Eos # (Auto) 0.1 (0.0-0.7) K/uL Baso # (Auto) 0.0 (0.0-0.1) K/uL Nucleated RBC % 0.0 /100WBC Nucleated RBCs # 0 K/uL INR 1.05 APTT 24.7 (18.6-31.3) SEC Sodium 138 (136-145) mmol/L Potassium 3.7 (3.5-5.1) mmol/L Chloride 102 (98-107) mmol/L Carbon Dioxide 25.9 (21.0-32.0) mmol/L BUN 19 H (7.0-18.0) mg/dL Creatinine 1.1 H (0.6-1.0) mg/dL Est Cr Clr Drug Dosing TNP Estimated GFR (MDRD) > 60.0 ml/min Glucose 105 (74-106) mg/dL Calcium 9.4 (8.5-10.1) mg/dL Total Bilirubin 0.4 (0.2-1.0) mg/dL AST 21 (15-37) IU/L ALT 43 (14-63) IU/L Alkaline Phosphatase 67 (46-116) U/L Troponin I < 0.050 (0.000-0.056) ng/mL Total Protein 7.3 (6.4-8.2) g/dL Albumin 3.8 (3.4-5.0) g/dL Globulin 3.5 (2.6-4.0) g/dL Albumin/Globulin Ratio 1.1 (0.9-1.6) TSH 3rd Generation 0.75 (0.36-3.74) uIU/mL Meds: Medications Generic Name Dose Route Start Last Admin Trade Name Freq PRN Reason Stop Dose Admin Sodium Chloride 1,000 mls @ 150 mls/hr 06/23/19 14:18 06/23/19 14:23 Normal Saline IV 06/23/19 20:57 150 mls/hr STAT ONE Administration Sodium Chloride 10 ml 06/23/19 14:09 06/23/19 14:43 Saline Flush FLUSH 10 ml ASDIRECTED PRN Administration Keep Vein Open Sodium Chloride 2.5 ml 06/23/19 14:09 06/23/19 14:42 Saline Flush FLUSH 2.5 ml ASDIRECTED PRN Administration Keep Vein Open Sodium Chloride 10 ml 06/23/19 14:09 06/23/19 14:43 Normal Saline IV 10 ml ASDIRECTED PRN Administration IV Use Discontinued Medications Generic Name Dose Route Start Last Admin Trade Name Freq PRN Reason Stop Dose Admin Albuterol/Ipratropium 3 ml 06/23/19 15:06 06/23/19 15:22 Duoneb 3.0-0.5 Mg/3 Ml NEB 06/23/19 15:07 3 ml ONETIME ONE Administration Labetalol HCl 20 mg 06/23/19 14:17 06/23/19 14:22 Normodyne IVPUSH 06/23/19 14:18 20 mg ONETIME ONE Administration Protocol Labetalol HCl 20 mg 06/23/19 15:05 06/23/19 16:15 Normodyne IVPUSH 06/23/19 15:06 Not Given ONETIME ONE Protocol Lisinopril 10 mg 06/23/19 15:34 Prinivil PO 06/23/19 15:35 ONETIME ONE Departure - Departure Time of Disposition: 16:29 Disposition: Admitted As Inpatient 64 Clinical Impression: Hypertension Qualifiers: Hypertension type: unspecified Qualified Code(s): I10 - Essential (primary) hypertension Asthma exacerbation Qualifiers: Asthma severity: mild Asthma persistence: intermittent Qualified Code(s): J45.21 - Mild intermittent asthma with (acute) exacerbation - Discharge Information - My Orders Last 24 Hours: My Active Orders 06/23/19 14:09 Cardiac Monitoring [RC] . DIRECTED Nursing Bedside Swallow Screen [RC] ASDIRECTED Stroke Education, General [RC] Click to Edit Sodium Chloride 0.9% [Normal Saline] 10 ml IV ASDIRECTED PRN Sodium Chloride 0.9% [Saline Flush] 10 ml FLUSH ASDIRECTED PRN Sodium Chloride 0.9% [Saline Flush] 2.5 ml FLUSH ASDIRECTED PRN Peripheral IV Insertion Adult [OM.PC] Stat Peripheral IV Insertion Adult [OM.PC] Stat 06/23/19 14:18 Sodium Chloride 0.9% [Normal Saline] 1,000 ml IV STAT 06/23/19 15:06 RT Aerosol Therapy [RC] ASDIRECTED 06/23/19 15:33 Admission Status [Patient Status] [ADT] Stat - Assessment/Plan Last 24 Hours: My Active Orders 06/23/19 14:09 Cardiac Monitoring [RC] . DIRECTED Nursing Bedside Swallow Screen [RC] ASDIRECTED Stroke Education, General [RC] Click to Edit Sodium Chloride 0.9% [Normal Saline] 10 ml IV ASDIRECTED PRN Sodium Chloride 0.9% [Saline Flush] 10 ml FLUSH ASDIRECTED PRN Sodium Chloride 0.9% [Saline Flush] 2.5 ml FLUSH ASDIRECTED PRN Peripheral IV Insertion Adult [OM.PC] Stat Peripheral IV Insertion Adult [OM.PC] Stat 06/23/19 14:18 Sodium Chloride 0.9% [Normal Saline] 1,000 ml IV STAT 06/23/19 15:06 RT Aerosol Therapy [RC] ASDIRECTED 06/23/19 15:33 Admission Status [Patient Status] [ADT] Stat
[2019-06-23] MEDS ORDERED: Labetalol 100 MG/20 ML MDV IVPUSH ONE ×2 (14:17→15:05)
[2019-06-23] MEDS ORDERED: Sodium Chloride 0.9% 1,000 ML IV ONE (14:18)
--- NOTE | 2019-06-23 14:33 | CT ---
INDICATION: Facial droop. Slurred speech. COMPARISON: 06/01/2016. TECHNIQUE: CT examination of the head was performed with 3 mm thick axial sections without intravenous contrast. Images were obtained from the vertex of the skull through the skull base, and I examined the images with the brain and bone windows. Please note that all CT scans at this facility use dose modulation, iterative reconstruction, and/or weight-based dosing when appropriate to reduce radiation dose to as low as reasonably achievable. FINDINGS: : Multiple stable dural calcifications, located along the anterior parietal regions, right greater than left, the anterior and superior falx, and the superior tentorium bilaterally. The brain is otherwise normal in appearance for the patient`s age on today`s study, with no sign of mass lesion, mass effect, hemorrhage, or edema. The ventricles and sulci are normal in appearance for the patient`s age. The visualized portions of the orbits are normal in appearance. The visualized portions of the paranasal sinuses and mastoids are clear. The osseous structures are normal in their appearance with no sign of abnormality in the skull base or calvarium. IMPRESSION: No sign of acute injury to the brain. Stable multiple dural calcifications as described above. Otherwise normal noncontrast CT of the head for the patient`s age. Please note that all CT scans at this facility use dose modulation, iterative reconstruction, and/or weight-based dosing when appropriate to reduce radiation dose to as low as reasonably achievable. Dictated by José Chávez MD @ Jun 23 2019 2:28PM Signed by Dr. José Chávez @ Jun 23 2019 2:32PM
[2019-06-23 14:59] LABS: BLOOD UREA NITROGEN,BUN 19 mg/dL (7.0-18.0); CARBON DIOXIDE,CO2 25.9 mmol/L (21.0-32.0); CHLORIDE,CL 102 mmol/L (98-107); GLUCOSE RANDOM 105 mg/dL (74-106); POTASSIUM,K 3.7 mmol/L (3.5-5.1); SODIUM,NA 138 mmol/L (136-145)
[2019-06-23] MEDS ORDERED: Albuterol/Ipratropium 3.0-0.5 MG/3 ML Neb Soln NEB ONE (15:06)
[2019-06-23] MEDS ORDERED: Lisinopril 10 MG Tab PO ONE (15:34)
--- NOTE | 2019-06-23 15:53 | CR ---
Indication: Shortness of breath. Technique: A single AP portable view of the chest was obtained. Comparison: June 12, 2019. Findings: The heart is normal in size. The lungs are clear. No infiltrate, pleural effusion, or pneumothorax is identified. Impression: No acute cardiopulmonary process. Dictated by Aretha Leonardo MD @ Jun 23 2019 3:50PM Signed by Dr. Aretha Leonardo @ Jun 23 2019 3:51PM
[2019-06-23] MEDS ORDERED: Pneumococcal Polyvalent-23 Vaccine 0.5 ML SDV IM ONE (16:52)
[2019-06-23] MEDS ORDERED: FLU Vacc QS2019-20(6MOS+)/PF 60 MCG/0.5 ML SYRINGE IM ONE (17:00)
[2019-06-23] MEDS: Insulin Aspart 100 Units/ML 3 ML Pen SUBCUT SCH (17:41)
--- NOTE | 2019-06-23 19:46 | PCM.HP.2 ---
H&P History of Present Illness - General Date of Service: 06/23/19 Admit Problem/Dx: Admission Diagnosis/Problem Admission Diagnosis/Problem Hypertension - History of Present Illness Initial Comments - Free Text/Narative: 54 yo female with past medical history of asthma, DM, and hypertension who presented with complaints of slurred speech. Patient reports for the past two days she has not been feeling well. She reports her legs giving out on her. She has had hand and face numbness. Today she reported difficulty talking as well as forming thoughts. In the ED she was not noted to have any neuro deficiets besides slow speech. She was noted to have a blood pressure of 230s/ 130s. She was given IV labetolol with improvement of her blood pressure to 160s /80s. She does report improvement in her symptoms. - Related Data Allergies/Adverse Reactions: Allergies Allergy/AdvReac Type Severity Reaction Status Date / Time No Known Allergies Allergy Verified 06/23/19 16:41 Home Medications: Home Meds atorvaSTATin [Lipitor] 40 mg PO BEDTIME 90 Days #30 tab 04/18/18 [Rx] Albuterol [Ventolin HFA] 2 puff INH Q4HR PRN #1 inhaler 07/22/18 [Rx] Glimepiride [Amaryl] 2 mg PO DAILY 07/22/18 [History] Albuterol Sulfate [Albuterol Sulfate Hfa] 18 gm IH Q4HR PRN 30 Days #1 [email or web address] 06/12/19 [Rx] Lisinopril/Hydrochlorothiazide [Lisinopril-HCTZ 10-12.5 MG] 10 - 12.5 mg PO DAILY 06/23/19 [History] metFORMIN HCl [Metformin HCl] 1,000 mg PO DAILY 06/23/19 [History] Past Medical History HEENT History: Reports: Other (See Below) Other HEENT History: ear infection Cardiovascular History: Reports: High Cholesterol, Hypertension Respiratory History: Reports: Asthma, Sleep Apnea Gastrointestinal History: Reports: GERD Genitourinary History: Reports: None [employer] History: Reports: Other OB/BYN History: 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 Musculoskeletal History: Reports: Other (See Below) Other Musculoskeletal History: ankle fracture - 2014 Neurological History: Reports: None Psychiatric History: Reports: None Endocrine/Metabolic History: Reports: Diabetes, Type II Hematologic History: Reports: None Immunologic History: Reports: None Oncologic (Cancer) History: Reports: None Dermatologic History: Reports: None - Infectious Disease History Infectious Disease History: Reports: Chicken Pox, Measles, Mumps - Past Surgical History Musculoskeletal Surgical History: Reports: Other (See Below) Social & Family History - Family History Family Medical History: Noncontributory Cardiac: Reports: Hypertension, [place] Respiratory: Reports: Asthma OBGYN: Reports: Musculoskeletal: Reports: Arthritis Neurological: Reports: CVA Endocrine/Metabolic: Reports: Diabetes, type II - Tobacco Use Smoking Status *Q: Current Every Day Smoker Years of Tobacco use: 5 Packs/Tins Daily: 1 Used Tobacco, but Quit: No Second Hand Smoke Exposure: Yes - Caffeine Use Caffeine Use: Reports: None - Recreational Drug Use Recreational Drug Use: No H&P Review of Systems - Review of Systems: Review Of Systems: ROS reveals no pertinent complaints other than HPI. Exam - Exam Exam: See Below - Vital Signs Vital Signs: Last Vital Signs Temp 36.3 C 06/23/19 17:05 Pulse 62 06/23/19 17:05 Resp 19 06/23/19 17:05 BP 169/84 H 06/23/19 17:05 Pulse Ox 99 06/23/19 17:05 Weight: 95.799 kg - Exam General: Alert, Oriented HEENT: Normal Nasal Septum Neck: Supple, Trachea Midline Lungs: Normal Respiratory Effort, Wheezing Cardiovascular: Regular Rate, Regular Rhythm GI/Abdominal Exam: Normal Bowel Sounds, Soft, Non-Tender, No Distention Extremities: Non-Tender, No Pedal Edema Skin: Warm, Dry, Intact Neurological: Cranial Nerves Intact, Reflexes Equal Bilateral, Strength Equal Bilateral, Normal Gait, Normal Speech, Normal Tone, Sensation Intact. No: Focal Deficit - Patient Data Lab Results Last 24 hrs: Laboratory Results - last 24 hr 06/23/19 06/23/19 06/23/19 Range/Units 14:17 14:17 14:17 WBC 7.39 (4.0-11.0) K/uL RBC 4.13 L (4.30-5.90) M/uL Hgb 11.9 L (12.0-16.0) g/dL Hct 36.4 (36.0-46.0) % MCV 88.1 (80.0-98.0) fL MCH 28.8 (27.0-32.0) pg MCHC 32.7 (31.0-37.0) g/dL RDW Std Deviation 46.2 (28.0-62.0) fl RDW Coeff of Jeannette 14 (11.0-15.0) % Plt Count 203 (150-400) K/uL MPV 10.10 (7.40-12.00) fL Neut % (Auto) 65.6 (48.0-80.0) % Lymph % (Auto) 23.3 (16.0-40.0) % [place] % (Auto) 9.1 (0.0-15.0) % Eos % (Auto) 1.9 (0.0-7.0) % Baso % (Auto) 0.1 (0.0-1.5) % Neut # (Auto) 4.9 (1.4-5.7) K/uL Lymph # (Auto) 1.7 (0.6-2.4) K/uL [place] # (Auto) 0.7 (0.0-0.8) K/uL Eos # (Auto) 0.1 (0.0-0.7) K/uL Baso # (Auto) 0.0 (0.0-0.1) K/uL Nucleated RBC % 0.0 /100WBC Nucleated RBCs # 0 K/uL INR 1.05 APTT 24.7 (18.6-31.3) SEC Sodium 138 (136-145) mmol/L Potassium 3.7 (3.5-5.1) mmol/L Chloride 102 (98-107) mmol/L Carbon Dioxide 25.9 (21.0-32.0) mmol/L BUN 19 H (7.0-18.0) mg/dL Creatinine 1.1 H (0.6-1.0) mg/dL Est Cr Clr Drug Dosing TNP Estimated GFR (MDRD) > 60.0 ml/min Glucose 105 (74-106) mg/dL POC Glucose (60-110) mg/dL Calcium 9.4 (8.5-10.1) mg/dL Total Bilirubin 0.4 (0.2-1.0) mg/dL AST 21 (15-37) IU/L ALT 43 (14-63) IU/L Alkaline Phosphatase 67 (46-116) U/L Troponin I < 0.050 (0.000-0.056) ng/mL Total Protein 7.3 (6.4-8.2) g/dL Albumin 3.8 (3.4-5.0) g/dL Globulin 3.5 (2.6-4.0) g/dL Albumin/Globulin Ratio 1.1 (0.9-1.6) TSH 3rd Generation 0.75 (0.36-3.74) uIU/mL 06/23/19 Range/Units 17:12 WBC (4.0-11.0) K/uL RBC (4.30-5.90) M/uL Hgb (12.0-16.0) g/dL Hct (36.0-46.0) % MCV (80.0-98.0) fL MCH (27.0-32.0) pg MCHC (31.0-37.0) g/dL RDW Std Deviation (28.0-62.0) fl RDW Coeff of Jeannette (11.0-15.0) % Plt Count (150-400) K/uL MPV (7.40-12.00) fL Neut % (Auto) (48.0-80.0) % Lymph % (Auto) (16.0-40.0) % [place] % (Auto) (0.0-15.0) % Eos % (Auto) (0.0-7.0) % Baso % (Auto) (0.0-1.5) % Neut # (Auto) (1.4-5.7) K/uL Lymph # (Auto) (0.6-2.4) K/uL [place] # (Auto) (0.0-0.8) K/uL Eos # (Auto) (0.0-0.7) K/uL Baso # (Auto) (0.0-0.1) K/uL Nucleated RBC % /100WBC Nucleated RBCs # K/uL INR APTT (18.6-31.3) SEC Sodium (136-145) mmol/L Potassium (3.5-5.1) mmol/L Chloride (98-107) mmol/L Carbon Dioxide (21.0-32.0) mmol/L BUN (7.0-18.0) mg/dL Creatinine (0.6-1.0) mg/dL Est Cr Clr Drug Dosing Estimated GFR (MDRD) ml/min Glucose (74-106) mg/dL POC Glucose 76 (60-110) mg/dL Calcium (8.5-10.1) mg/dL Total Bilirubin (0.2-1.0) mg/dL AST (15-37) IU/L ALT (14-63) IU/L Alkaline Phosphatase (46-116) U/L Troponin I (0.000-0.056) ng/mL Total Protein (6.4-8.2) g/dL Albumin (3.4-5.0) g/dL Globulin (2.6-4.0) g/dL Albumin/Globulin Ratio (0.9-1.6) TSH 3rd Generation (0.36-3.74) uIU/mL Result Diagrams: 06/23/19 14:17 06/23/19 14:17 Problem List Initiated/Reviewed/Updated: Yes Orders Last 24hrs: Active Orders 24 hr Category Date Time Status Admission Status [Patient Status] [ADT] Stat ADT 06/23/19 15:33 Active Antiembolic Devices [RC] PER UNIT ROUTINE Care 06/23/19 19:43 Ordered Blood Glucose Check, Bedside [RC] TIDMEALS Care 06/23/19 19:42 Ordered Cardiac Monitoring [RC] . DIRECTED Care 06/23/19 14:09 Active Influenza Vaccine Charge [RC] .DISCHARGE Care 06/23/19 16:57 Active Oxygen Therapy [RC] PRN Care 06/23/19 19:42 Ordered RT Aerosol Therapy [RC] ASDIRECTED Care 06/23/19 15:06 Active RT Aerosol Therapy [RC] ASDIRECTED Care 06/23/19 19:43 Ordered Stroke Education, General [RC] Click to Edit Care 06/23/19 14:09 Active Up ad Emperatriz [RC] ASDIRECTED Care 06/23/19 19:42 Ordered VTE/DVT Education [RC] PER UNIT ROUTINE Care 06/23/19 19:42 Ordered Vital Signs [RC] Q4H Care 06/23/19 19:42 Ordered [employer] [employer] Diet [DIET] Diet 06/23/19 Dinner Active BASIC METABOLIC PANEL,BMP [CHEM] AM Lab 06/24/19 05:11 Ordered CBC W/O DIFF,HEMOGRAM [HEME] AM Lab 06/24/19 05:11 Ordered Albuterol [Proventil Neb Soln] Med 06/23/19 19:42 Ordered 2.5 mg NEB Q2H PRN Glimepiride [Amaryl] Med 06/24/19 09:00 Ordered 2 mg PO DAILY Insulin Aspart [NovoLOG] Med 06/23/19 17:00 Active See Protocol SUBCUT TIDAC Sodium Chloride 0.9% [Normal Saline] Med 06/23/19 14:09 Active 10 ml IV ASDIRECTED PRN Sodium Chloride 0.9% [Saline Flush] Med 06/23/19 14:09 Active 10 ml FLUSH ASDIRECTED PRN Sodium Chloride 0.9% [Saline Flush] Med 06/23/19 14:09 Active 2.5 ml FLUSH ASDIRECTED PRN atorvaSTATin [Lipitor] Med 06/23/19 21:00 Ordered 40 mg PO BEDTIME Peripheral IV Insertion Adult [OM.PC] Stat Oth 06/23/19 14:09 Ordered Peripheral IV Insertion Adult [OM.PC] Stat Oth 06/23/19 14:09 Ordered Sequential Compression Device [OM.PC] Per Unit Routine Oth 06/23/19 19:42 Ordered Resuscitation Status Routine Resus Stat 06/23/19 19:42 Ordered Medication Orders Albuterol (Proventil Neb Soln) 2.5 mg NEB Q2H PRN PRN Reason: Shortness Of Breath/wheezing Atorvastatin Calcium (Lipitor) 40 mg PO BEDTIME MARCELO Glimepiride (Amaryl) 2 mg PO DAILY MARCELO Insulin Aspart (Novolog) 0 unit SUBCUT TIDAC MARCELO; Protocol Last Admin: 06/23/19 17:41 Dose: Not Given Sodium Chloride (Saline Flush) 10 ml FLUSH ASDIRECTED PRN PRN Reason: Keep Vein Open Last Admin: 06/23/19 14:43 Dose: 10 ml Sodium Chloride (Saline Flush) 2.5 ml FLUSH ASDIRECTED PRN PRN Reason: Keep Vein Open Last Admin: 06/23/19 14:42 Dose: 2.5 ml Sodium Chloride (Normal Saline) 10 ml IV ASDIRECTED PRN PRN Reason: IV Use Last Admin: 06/23/19 14:43 Dose: 10 ml Assessment/Plan Comment:: 54 yo female who presents with slurred speech and parasthesia. She was found to have severely elevated blood pressure which is now better control. CT head was negative. Patient may have had a TIA vs hypertensive urgency with encephalopathy. We will continue to watch closely with neuro checks and monitor blood pressure. Albuterol nebs have been ordered due to her wheezing.
[2019-06-23] MEDS: Albuterol 0.083% 2.5 MG/3 ML Neb Soln NEB PRN (20:40)
[2019-06-23] MEDS ORDERED: atorvaSTATin 40 MG Tab PO SCH (21:00)
[2019-06-24] MEDS: Albuterol 0.083% 2.5 MG/3 ML Neb Soln NEB PRN ×2 (05:42→09:28)
[2019-06-24 06:21] LABS: BLOOD UREA NITROGEN,BUN 17 mg/dL (7.0-18.0); CHLORIDE,CL 102 mmol/L (98-107); GLUCOSE RANDOM 112 mg/dL (74-106); POTASSIUM,K 3.6 mmol/L (3.5-5.1); SODIUM,NA 138 mmol/L (136-145)
[2019-06-24] MEDS: Insulin Aspart 100 Units/ML 3 ML Pen SUBCUT SCH ×2 (06:52→11:24)
[2019-06-24] MEDS ORDERED: Glimepiride 2 MG Tab PO SCH (09:00)
[2019-06-24 11:24] VITALS: BP 167/81; PULSE 63
--- NOTE | 2019-06-24 11:30 | PCM.DCSUM1 ---
Discharge Summary - Hospital Course Diagnosis: Stroke: No - Discharge Data Discharge Date: 06/24/19 Discharge Disposition: Home, Self-Care 01 Condition: Fair - Referral to Home Health Primary Care Physician: PCP Unknown - Discharge Diagnosis/Problem(s) (1) Hypertension SNOMED Code(s): 19909627 ICD Code: I10 - ESSENTIAL (PRIMARY) HYPERTENSION Status: Chronic Priority : High Qualifiers: Hypertension type: unspecified Qualified Code(s): I10 - Essential (primary ) hypertension (2) Asthma SNOMED Code(s): 761314642 ICD Code: J45.909 - UNSPECIFIED ASTHMA, UNCOMPLICATED Status: Acute Priority: Medium Qualifiers: Asthma severity: mild Asthma persistence: intermittent Asthma complication type: uncomplicated Qualified Code(s): J45.20 - Mild intermittent asthma, uncomplicated (3) Bronchitis SNOMED Code(s): 68826979 ICD Code: J40 - BRONCHITIS, NOT SPECIFIED ACUTE OR CHRONIC Status: Acute Priority: High (4) Diabetes mellitus SNOMED Code(s): 69732942 ICD Code: E11.9 - TYPE 2 DIABETES MELLITUS WITHOUT COMPLICATIONS Status: Chronic Priority: High Qualifiers: Diabetes mellitus type: type 2 Diabetes mellitus senior living insulin use: without terminal press operator use Diabetes mellitus complication status: without complication Qualified Code(s): E11.9 - Type 2 diabetes mellitus without complications (5) Smoker SNOMED Code(s): 32987657 ICD Code: F17.200 - NICOTINE DEPENDENCE, UNSPECIFIED, UNCOMPLICATED Status : Chronic Priority: High - Patient Summary/Data Hospital Course: The patient is a 54-year-old lady who had been admitted to acute hospitalization on June 23, 2019 secondary to hypertensive urgency. Patient has a past medical history of asthma, diabetes mellitus and hypertension. She had presented to the emergency department with concern for slurred speech. She also reported that she has not been feeling well over the past couple of days. The patient had presented to the emergency department via EMS. The patient's blood pressure in the emergency room was 184/80 mmHg. The patient was also noted to have a maximum blood pressure of 175/[address] scan of the patient's head obtained on June 23, 2019 showed that the visualized portions of the orbits were normal, multiple stable dural calcifications, brain otherwise normal in appearance for the patient's age. This was reported as no sign of acute injury to the brain. On the first day of hospitalization the patient was noted to have been snacking on candy and had explained that she was very hungry. The patient does have diabetes mellitus type 2 and this had been explained by nursing staff that this was not appropriate. Later that evening the patient's gait had improved significantly. The patient was thought to have hypertensive urgency with acute encephalopathy and this had improved greatly overnight. By day of discharge the patient felt like she could go home. The patient says that her symptoms have resolved. She is recommended to continue with her appropriate diabetic diet as tolerated. She is to have activity as tolerated. The patient has been recommended to follow-up with her primary care physician with regards to her diabetes. The patient has been hemodynamically stable and her latest blood pressure was 157/75 mmHg. The patient also has been strongly counseled with regards to smoking cessation. She is discharged from acute hospitalization with the recommendations listed above. - Patient Instructions Diet: Heart Healthy Diet, Diabetic Diet Activity: As Tolerated Notify Provider of: Increased Pain, Swelling and Redness - Discharge Plan *PRESCRIPTION DRUG MONITORING PROGRAM REVIEWED*: No *COPY OF PRESCRIPTION DRUG MONITORING REPORT IN PATIENT TREVOR: No Prescriptions/Med Rec: Albuterol/Ipratropium [DuoNeb 3.0-0.5 MG/3 ML] 3 ml NEB Q6H PRN #60 neb PRN Reason: Wheezing Home Medications: Home Meds RX: atorvaSTATin [Lipitor] 40 mg PO BEDTIME 90 Days #30 tab 04/18/18 [Rx] RX: Albuterol [Ventolin HFA] 2 puff INH Q4HR PRN #1 inhaler 07/22/18 [Rx] RX: Glimepiride [Amaryl] 2 mg PO DAILY 07/22/18 [History] RX: Lisinopril/Hydrochlorothiazide [Lisinopril-HCTZ 10-12.5 MG] 10 - 12.5 mg PO DAILY 06/23/19 [History] RX: metFORMIN HCl [Metformin HCl] 1,000 mg PO DAILY 06/23/19 [History] Albuterol/Ipratropium [DuoNeb 3.0-0.5 MG/3 ML] 3 ml NEB Q6H PRN #60 neb [Rx] Oxygen Therapy Mode: Room Air Patient Handouts: Hypertension, [id number], Preventing Hypertension Referrals: Ken Hand MD [Physician] - (Please call clinic on Tuesday for appointment, we are unable to do due to today is weekend.) - Discharge Summary/Plan Comment DC Time >30 min.: Yes - General Info Date of Service: 06/24/19 Admission Dx/Problem (Free Text: Admission Diagnosis/Problem Admission Diagnosis/Problem Hypertension, urgency, hypertensive encephalopathy resolved Functional Status: Reports: Pain Controlled - Review of Systems General: Reports: No Symptoms HEENT: Reports: No Symptoms Pulmonary: Reports: No Symptoms Cardiovascular: Reports: No Symptoms Gastrointestinal: Reports: No Symptoms Genitourinary: Reports: No Symptoms Musculoskeletal: Reports: No Symptoms Skin: Reports: No Symptoms Neurological: Reports: No Symptoms Psychiatric: Reports: No Symptoms - Patient Data Vitals - Most Recent: Last Vital Signs Temp 36.3 C 06/24/19 11:24 Pulse 63 06/24/19 11:24 Resp 18 06/24/19 11:24 BP 167/81 H 06/24/19 11:24 Pulse Ox 100 06/24/19 11:24 Weight - Most Recent: 95.799 kg I&O - Last 24 hours: Intake & Output 06/23/19 06/24/19 06/24/19 22:59 06:59 14:59 Intake Total 840 Output Total 850 Balance -10 Lab Results - Last 24 hrs: Laboratory Results - last 24 hr 06/23/19 06/23/19 06/23/19 Range/Units 14:17 14:17 14:17 WBC 7.39 (4.0-11.0) K/uL RBC 4.13 L (4.30-5.90) M/uL Hgb 11.9 L (12.0-16.0) g/dL Hct 36.4 (36.0-46.0) % MCV 88.1 (80.0-98.0) fL MCH 28.8 (27.0-32.0) pg MCHC 32.7 (31.0-37.0) g/dL RDW Std Deviation 46.2 (28.0-62.0) fl RDW Coeff of Jeannette 14 (11.0-15.0) % Plt Count 203 (150-400) K/uL MPV 10.10 (7.40-12.00) fL Neut % (Auto) 65.6 (48.0-80.0) % Lymph % (Auto) 23.3 (16.0-40.0) % [place] % (Auto) 9.1 (0.0-15.0) % Eos % (Auto) 1.9 (0.0-7.0) % Baso % (Auto) 0.1 (0.0-1.5) % Neut # (Auto) 4.9 (1.4-5.7) K/uL Lymph # (Auto) 1.7 (0.6-2.4) K/uL [place] # (Auto) 0.7 (0.0-0.8) K/uL Eos # (Auto) 0.1 (0.0-0.7) K/uL Baso # (Auto) 0.0 (0.0-0.1) K/uL Nucleated RBC % 0.0 /100WBC Nucleated RBCs # 0 K/uL INR 1.05 APTT 24.7 (18.6-31.3) SEC Sodium 138 (136-145) mmol/L Potassium 3.7 (3.5-5.1) mmol/L Chloride 102 (98-107) mmol/L Carbon Dioxide 25.9 (21.0-32.0) mmol/L BUN 19 H (7.0-18.0) mg/dL Creatinine 1.1 H (0.6-1.0) mg/dL Est Cr Clr Drug Dosing TNP Estimated GFR (MDRD) > 60.0 ml/min Glucose 105 (74-106) mg/dL POC Glucose (60-110) mg/dL Calcium 9.4 (8.5-10.1) mg/dL Total Bilirubin 0.4 (0.2-1.0) mg/dL AST 21 (15-37) IU/L ALT 43 (14-63) IU/L Alkaline Phosphatase 67 (46-116) U/L Troponin I < 0.050 (0.000-0.056) ng/mL Total Protein 7.3 (6.4-8.2) g/dL Albumin 3.8 (3.4-5.0) g/dL Globulin 3.5 (2.6-4.0) g/dL Albumin/Globulin Ratio 1.1 (0.9-1.6) TSH 3rd Generation 0.75 (0.36-3.74) uIU/mL 06/23/19 06/24/19 06/24/19 Range/Units 17:12 05:20 05:20 WBC 5.48 (4.0-11.0) K/uL RBC 3.86 L (4.30-5.90) M/uL Hgb 11.1 L (12.0-16.0) g/dL Hct 34.5 L (36.0-46.0) % MCV 89.4 (80.0-98.0) fL MCH 28.8 (27.0-32.0) pg MCHC 32.2 (31.0-37.0) g/dL RDW Std Deviation 47.5 (28.0-62.0) fl RDW Coeff of Jeannette 15 (11.0-15.0) % Plt Count 204 (150-400) K/uL MPV 10.60 (7.40-12.00) fL Neut % (Auto) (48.0-80.0) % Lymph % (Auto) (16.0-40.0) % [place] % (Auto) (0.0-15.0) % Eos % (Auto) (0.0-7.0) % Baso % (Auto) (0.0-1.5) % Neut # (Auto) (1.4-5.7) K/uL Lymph # (Auto) (0.6-2.4) K/uL [place] # (Auto) (0.0-0.8) K/uL Eos # (Auto) (0.0-0.7) K/uL Baso # (Auto) (0.0-0.1) K/uL Nucleated RBC % 0.0 /100WBC Nucleated RBCs # 0 K/uL INR APTT (18.6-31.3) SEC Sodium 138 (136-145) mmol/L Potassium 3.6 (3.5-5.1) mmol/L Chloride 102 (98-107) mmol/L Carbon Dioxide 26.0 (21.0-32.0) mmol/L BUN 17 (7.0-18.0) mg/dL Creatinine 0.8 (0.6-1.0) mg/dL Est Cr Clr Drug Dosing 76.36 Estimated GFR (MDRD) > 60.0 ml/min Glucose 112 H (74-106) mg/dL POC Glucose 76 (60-110) mg/dL Calcium 9.0 (8.5-10.1) mg/dL Total Bilirubin (0.2-1.0) mg/dL AST (15-37) IU/L ALT (14-63) IU/L Alkaline Phosphatase (46-116) U/L Troponin I (0.000-0.056) ng/mL Total Protein (6.4-8.2) g/dL Albumin (3.4-5.0) g/dL Globulin (2.6-4.0) g/dL Albumin/Globulin Ratio (0.9-1.6) TSH 3rd Generation (0.36-3.74) uIU/mL 06/24/19 06/24/19 Range/Units 06:09 11:20 WBC (4.0-11.0) K/uL RBC (4.30-5.90) M/uL Hgb (12.0-16.0) g/dL Hct (36.0-46.0) % MCV (80.0-98.0) fL MCH (27.0-32.0) pg MCHC (31.0-37.0) g/dL RDW Std Deviation (28.0-62.0) fl RDW Coeff of Jeannette (11.0-15.0) % Plt Count (150-400) K/uL MPV (7.40-12.00) fL Neut % (Auto) (48.0-80.0) % Lymph % (Auto) (16.0-40.0) % [place] % (Auto) (0.0-15.0) % Eos % (Auto) (0.0-7.0) % Baso % (Auto) (0.0-1.5) % Neut # (Auto) (1.4-5.7) K/uL Lymph # (Auto) (0.6-2.4) K/uL [place] # (Auto) (0.0-0.8) K/uL Eos # (Auto) (0.0-0.7) K/uL Baso # (Auto) (0.0-0.1) K/uL Nucleated RBC % /100WBC Nucleated RBCs # K/uL INR APTT (18.6-31.3) SEC Sodium (136-145) mmol/L Potassium (3.5-5.1) mmol/L Chloride (98-107) mmol/L Carbon Dioxide (21.0-32.0) mmol/L BUN (7.0-18.0) mg/dL Creatinine (0.6-1.0) mg/dL Est Cr Clr Drug Dosing Estimated GFR (MDRD) ml/min Glucose (74-106) mg/dL POC Glucose 111 H 85 (60-110) mg/dL Calcium (8.5-10.1) mg/dL Total Bilirubin (0.2-1.0) mg/dL AST (15-37) IU/L ALT (14-63) IU/L Alkaline Phosphatase (46-116) U/L Troponin I (0.000-0.056) ng/mL Total Protein (6.4-8.2) g/dL Albumin (3.4-5.0) g/dL Globulin (2.6-4.0) g/dL Albumin/Globulin Ratio (0.9-1.6) TSH 3rd Generation (0.36-3.74) uIU/mL Med Orders - Current: Current Medications Albuterol (Proventil Neb Soln) 2.5 mg NEB Q2H PRN PRN Reason: Shortness Of Breath/wheezing Last Admin: 06/24/19 09:28 Dose: 2.5 mg Atorvastatin Calcium (Lipitor) 40 mg PO BEDTIME [facility] Last Admin: 06/23/19 20:32 Dose: 40 mg Glimepiride (Amaryl) 2 mg PO DAILY [facility] Last Admin: 06/24/19 08:29 Dose: 2 mg Insulin Aspart (Novolog) 0 unit SUBCUT TIDAC [facility]; Protocol Last Admin: 06/24/19 11:24 Dose: Not Given Sodium Chloride (Saline Flush) 10 ml FLUSH ASDIRECTED PRN PRN Reason: Keep Vein Open Last Admin: 06/23/19 14:43 Dose: 10 ml Sodium Chloride (Saline Flush) 2.5 ml FLUSH ASDIRECTED PRN PRN Reason: Keep Vein Open Last Admin: 06/23/19 14:42 Dose: 2.5 ml Sodium Chloride (Normal Saline) 10 ml IV ASDIRECTED PRN PRN Reason: IV Use Last Admin: 06/23/19 14:43 Dose: 10 ml Discontinued Medications Albuterol/Ipratropium (Duoneb 3.0-0.5 Mg/3 Ml) 3 ml NEB ONETIME ONE Stop: 06/23/19 15:07 Last Admin: 06/23/19 15:22 Dose: 3 ml Sodium Chloride (Normal Saline) 1,000 mls @ 150 mls/hr IV STAT ONE Stop: 06/23/19 20:57 Last Admin: 06/23/19 14:23 Dose: 150 mls/hr Influenza Virus Vaccine (Pharmacy To Dose - Influenza Vaccine) 1 each IM ONETIME ONE Stop: 06/23/19 16:57 Last Admin: 06/23/19 17:41 Dose: Not Given Influenza Virus Vaccine (Fluzone Quad Syringe) 60 mcg IM .ONCE ONE Stop: 06/23/19 17:01 Last Admin: 06/23/19 17:33 Dose: 60 mcg Labetalol HCl (Normodyne) 20 mg IVPUSH ONETIME ONE; Protocol Stop: 06/23/19 14:18 Last Admin: 06/23/19 14:22 Dose: 20 mg Labetalol HCl (Normodyne) 20 mg IVPUSH ONETIME ONE; Protocol Stop: 06/23/19 15:06 Last Admin: 06/23/19 16:15 Dose: Not Given Lisinopril (Prinivil) 10 mg PO ONETIME ONE Stop: 06/23/19 15:35 Last Admin: 06/23/19 16:56 Dose: Not Given Pneumococcal Polyvalent Vaccine (Pneumovax 23) 0.5 ml IM .ONCE ONE Stop: 06/23/19 16:53 Last Admin: 06/23/19 17:35 Dose: 0.5 ml - Exam Quality Assessment: Denies: Supplemental Oxygen General: Reports: Alert, Oriented, Cooperative, No Acute Distress HEENT: Reports: Pupils Equal, Pupils Reactive, EOMI, Mucous Membr. Moist/[place] Neck: Reports: Supple, Trachea Midline Lungs: Reports: Clear to Auscultation, Normal Respiratory Effort Cardiovascular: Reports: Regular Rate, Regular Rhythm GI/Abdominal Exam: Normal Bowel Sounds, Soft, No Distention Back Exam: Reports: Normal Inspection, Full Range of Motion Extremities: Normal Inspection, Normal Range of Motion, No Pedal Edema Skin: Reports: Warm, Dry, Intact Neurological: Reports: No New Focal Deficit, Normal Gait, Normal Speech, Cranial Nerves Intact Psy/Mental Status: Reports: Alert, Normal Affect, Normal Mood
== END 2019-06-24 12:45 | disposition home or self-care (01) | DRG 305 ==
LOC: MW.ED 14:08 → MW.MS 16:04
PROVIDERS: ADMIT Internal Medicine; ATTEND Internal Medicine
PROC: 3E02340 Introduction of Influenza Vaccine into Muscle, Percutaneous Approach (ICD-10-PCS; principal; 2019-06-23)
PROC: 3E0234Z Introduction of Serum, Toxoid and Vaccine into Muscle, Percutaneous Approach (ICD-10-PCS; 2019-06-23)
DX: I16.0 Hypertensive urgency (principal); I67.4 Hypertensive encephalopathy; J45.20 Mild intermittent asthma, uncomplicated; E11.9 Type 2 diabetes mellitus without complications; I10 Essential (primary) hypertension; J40 Bronchitis, not specified as acute or chronic; K21.9 Gastro-esophageal reflux disease without esophagitis; F17.210 Nicotine dependence, cigarettes, uncomplicated; E78.00 Pure hypercholesterolemia, unspecified; G47.30 Sleep apnea, unspecified; Z71.6 Tobacco abuse counseling; Z87.81 Personal history of (healed) traumatic fracture; Z23 Encounter for immunization; Z79.899 Other long term (current) drug therapy; Z79.84 Long term (current) use of oral hypoglycemic drugs
CPT/HCPCS: 36415; 70450; 70450-26; 71045; 71045-26; 80048; 80053; 82962; 84443; 84484; 85025; 85027; 85610; 85730; 90686; 90732; 93005; 94640; 96361; 96374; 99284; 99285-25; A9270-GY; G0008; G0009; J3490; J7040; J7050; J7620-GY

== ENCOUNTER 2019-06-29 19:56 | Emergency (ER) | payer MEDICAID ==
[2019-06-29] MEDS ORDERED: Sodium Chloride 0.9% 2.5 ML Syringe FLUSH PRN (19:58)
[2019-06-29] MEDS ORDERED: Sodium Chloride 0.9% 10 ML SDV IV PRN (19:58)
[2019-06-29] MEDS ORDERED: Sodium Chloride 0.9% 10 ML Syringe FLUSH PRN (19:58)
[2019-06-29] MEDS ORDERED: Labetalol 100 MG/20 ML MDV IVPUSH ONE ×2 (20:22→20:30)
--- NOTE | 2019-06-29 20:29 | EDM.PDOC ---
ED HPI GENERAL MEDICAL PROBLEM - General Chief Complaint: Neuro Symptoms/Deficits Stated Complaint: TROUBLE SPEAKING Time Seen by Provider: 06/29/19 19:58 Source of Information: Reports: Patient, EMS History Limitations: Reports: Other - History of Present Illness INITIAL COMMENTS - FREE TEXT/NARRATIVE: HISTORY AND PHYSICAL: History of present illness: HPI is limited due to poor historian. Patient is a 54-year-old female who presents to the ED today via EMS for concern of altered speech. Per EMS, patient's friend had called and states that all day patient hasn't been per her normal self and her speech has been "off". Per EMS report, these symptoms have been ongoing all day today. Patient was seen on 06/23/19 for similar symptoms of slurred speech and at that time was admitted for hypertensive urgency with acute encephalopathy. Patient has a history of asthma, diabetes, and hypertension. Patient was instructed upon discharge to follow up closely with her primary care and states that she has not followed up. Patient does have some stuttering speech on exam with repetitive words but is able to follow commands appropriately. Upon discharge at this visit her blood pressure was 157/75. Patient denies fever, chills, chest pain, shortness of breath, or cough. Denies headache, neck stiff ness, change in vision, syncope, or near syncope. Denies nausea, vomiting, abdominal pain, diarrhea, constipation, or dysuria. Has not noted any blood in urine or stool. Patient has been eating and drinking appropriately. Review of systems: As per history of present illness and below otherwise all systems reviewed and negative. Past medical history: As per history of present illness and as reviewed below otherwise noncontributory. Surgical history: As per history of present illness and as reviewed below otherwise noncontributory. Social history: See social history for further information Family history: As per history of present illness and as reviewed below otherwise noncontributory. Physical exam: General: Patient is alert, oriented, and in no acute distress. Patient laying comfortably on exam table. Patient does have some stuttering speech with repetitive words but is able to follow commands and answer questions with short one to 2 word sentences. HEENT: Atraumatic, normocephalic, pupils equal and reactive bilaterally, negative for conjunctival pallor or scleral icterus, mucous membranes moist, TMs normal bilaterally, throat clear, neck supple, nontender, trachea midline. No drooling or trismus noted. No meningeal signs. No hot potato voice noted. Lungs: Clear to auscultation, breath sounds equal bilaterally, chest nontender. Heart: S1S2, regular rate and rhythm without overt murmur Abdomen: Soft, nondistended, nontender. Negative for masses or hepatosplenomegaly. Negative for costovertebral tenderness. Pelvis: Stable nontender. Genitourinary: Deferred. Rectal: Deferred. Skin: Intact, warm, dry. No lesions or rashes noted. Extremities: Atraumatic, negative for cords or calf pain. Neurovascular unremarkable. Neuro: Awake, alert.Cranial nerves II through XII unremarkable. Cerebellum unremarkable. Motor and sensory unremarkable throughout. Patient does have some stuttering speech with repetitive words but is able to follow commands and answer questions with short one to 2 word sentences. Notes: Last known time well is unclear but per friend has been "ongoing all day" Dr. Jett verbally involved in patient care. GCS 15, NIH 5 Dr. Galindo is aware of patient and accepting of transfer to [facility] via EMS Voices understanding and is agreeable to plan of care. Denies any further questions or concerns at this time. Diagnostics: CBC, CMP, magnesium, UA, EKG, head CT, ethanol level, urine drug screen, troponin, TSH, PT/INR, PTT, chest x-ray Therapeutics: Labetalol 10, ASA Impression: Acute lacunar infarct stroke Alcohol intoxication Plan: 1. Transfer to Dr. Galindo via EMS at [facility] Definitive disposition and diagnosis as appropriate pending reevaluation and review of above. - Related Data Allergies Allergy/AdvReac Type Severity Reaction Status Date / Time No Known Allergies Allergy Verified 06/29/19 20:07 Home Meds: Home Meds atorvaSTATin [Lipitor] 40 mg PO BEDTIME 90 Days #30 tab 04/18/18 [Rx] Albuterol [Ventolin HFA] 2 puff INH Q4HR PRN #1 inhaler 07/22/18 [Rx] Glimepiride [Amaryl] 2 mg PO DAILY 07/22/18 [History] Lisinopril/Hydrochlorothiazide [Lisinopril-HCTZ 10-12.5 MG] 10 - 12.5 mg PO DAILY 06/23/19 [History] metFORMIN HCl [Metformin HCl] 1,000 mg PO DAILY 06/23/19 [History] Albuterol/Ipratropium [DuoNeb 3.0-0.5 MG/3 ML] 3 ml NEB Q6H PRN #60 neb [Rx] Past Medical History HEENT History: Reports: Other (See Below) Other HEENT History: ear infection Cardiovascular History: Reports: High Cholesterol, Hypertension Respiratory History: Reports: Asthma, Sleep Apnea Gastrointestinal History: Reports: GERD Genitourinary History: Reports: None CRIMINAL ATTORNEY History: Reports: Other CRIMINAL ATTORNEY History: 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 Musculoskeletal History: Reports: Other (See Below) Other Musculoskeletal History: ankle fracture - 2013 Neurological History: Reports: None Psychiatric History: Reports: None Endocrine/Metabolic History: Reports: Diabetes, Type II Hematologic History: Reports: None Immunologic History: Reports: None Oncologic (Cancer) History: Reports: None Dermatologic History: Reports: None - Infectious Disease History Infectious Disease History: Reports: Chicken Pox, Measles, Mumps - Past Surgical History Musculoskeletal Surgical History: Reports: Other (See Below) Social & Family History - Family History Family Medical History: Noncontributory Cardiac: Reports: Hypertension, [place] Respiratory: Reports: Asthma OBGYN: Reports: Musculoskeletal: Reports: Arthritis Neurological: Reports: CVA Endocrine/Metabolic: Reports: Diabetes, type II - Tobacco Use Smoking Status *Q: Current Every Day Smoker Years of Tobacco use: 10 Packs/Tins Daily: 0.5 - Caffeine Use Caffeine Use: Reports: None - Recreational Drug Use Recreational Drug Use: No ED ROS GENERAL - Review of Systems Review Of Systems: ROS reveals no pertinent complaints other than HPI. ED EXAM, GENERAL - Physical Exam Exam: See Below (see dictation) Course - Vital Signs Last Recorded V/S: Last Vital Signs Temp 98.1 F 06/29/19 21:53 Pulse 73 06/29/19 21:53 Resp 16 06/29/19 21:53 BP 148/95 H 06/29/19 21:53 Pulse Ox 99 06/29/19 21:53 - Orders/Labs/Meds Orders: Active Orders 24 hr Category Date Time Status Assess Neurological Status [RC] ASDIRECTED Care 06/29/19 19:58 Active Bedrest [RC] ASDIRECTED Care 06/29/19 19:58 Active Cardiac Monitoring [RC] . DIRECTED Care 06/29/19 19:58 Active EKG Documentation Completion [RC] STAT Care 06/29/19 19:58 Active Height and Weight [RC] UPON Care 06/29/19 19:58 Active Initiate Acute Stroke Protocol [RC] STAT Care 06/29/19 19:58 Active NIH Stroke Scale [RC] ASDIRECTED Care 06/29/19 19:58 Active Nursing Bedside Swallow Screen [RC] ASDIRECTED Care 06/29/19 19:58 Active Oxygen Therapy [RC] ASDIRECTED Care 06/29/19 19:58 Active Stroke Education, General [RC] Click to Edit Care 06/29/19 19:58 Active Vital Signs [RC] Q15M Care 06/29/19 19:58 Active DRUG SCREEN, URINE [URCHEM] Stat Lab 06/29/19 19:59 Ordered UA RFX LETICIA AND CULT IF INDIC [URIN] Stat Lab 06/29/19 19:58 Ordered Sodium Chloride 0.9% [Normal Saline] Med 06/29/19 19:58 Active 10 ml IV ASDIRECTED PRN Sodium Chloride 0.9% [Saline Flush] Med 06/29/19 19:58 Active 10 ml FLUSH ASDIRECTED PRN Sodium Chloride 0.9% [Saline Flush] Med 06/29/19 19:58 Active 2.5 ml FLUSH ASDIRECTED PRN Peripheral IV Insertion Adult [OM.PC] Stat Oth 06/29/19 19:58 Ordered Medication Orders Sodium Chloride (Saline Flush) 10 ml FLUSH ASDIRECTED PRN PRN Reason: Keep Vein Open Last Admin: 06/29/19 20:28 Dose: 10 ml Sodium Chloride (Saline Flush) 2.5 ml FLUSH ASDIRECTED PRN PRN Reason: Keep Vein Open Last Admin: 06/29/19 20:28 Dose: 2.5 ml Sodium Chloride (Normal Saline) 10 ml IV ASDIRECTED PRN PRN Reason: IV Use Labs: Laboratory Tests 06/29/19 06/29/19 06/29/19 Range/Units 20:25 20:25 20:25 WBC 6.16 (4.0-11.0) K/uL RBC 4.24 L (4.30-5.90) M/uL Hgb 12.4 (12.0-16.0) g/dL Hct 37.3 (36.0-46.0) % MCV 88.0 (80.0-98.0) fL MCH 29.2 (27.0-32.0) pg MCHC 33.2 (31.0-37.0) g/dL RDW Std Deviation 45.3 (28.0-62.0) fl RDW Coeff of Jeannette 14 (11.0-15.0) % Plt Count 186 (150-400) K/uL MPV 10.10 (7.40-12.00) fL Neut % (Auto) 58.0 (48.0-80.0) % Lymph % (Auto) 29.7 (16.0-40.0) % [place] % (Auto) 11.0 (0.0-15.0) % Eos % (Auto) 1.1 (0.0-7.0) % Baso % (Auto) 0.2 (0.0-1.5) % Neut # (Auto) 3.6 (1.4-5.7) K/uL Lymph # (Auto) 1.8 (0.6-2.4) K/uL [place] # (Auto) 0.7 (0.0-0.8) K/uL Eos # (Auto) 0.1 (0.0-0.7) K/uL Baso # (Auto) 0.0 (0.0-0.1) K/uL Nucleated RBC % 0.0 /100WBC Nucleated RBCs # 0 K/uL INR 1.03 APTT 22.1 (18.6-31.3) SEC Sodium 140 (136-145) mmol/L Potassium 3.7 (3.5-5.1) mmol/L Chloride 102 (98-107) mmol/L Carbon Dioxide 24.9 (21.0-32.0) mmol/L BUN 13 (7.0-18.0) mg/dL Creatinine 0.9 (0.6-1.0) mg/dL Est Cr Clr Drug Dosing TNP Estimated GFR (MDRD) > 60.0 ml/min Glucose 90 (74-106) mg/dL Calcium 9.9 (8.5-10.1) mg/dL Magnesium 1.8 (1.8-2.4) mg/dL Total Bilirubin 1.0 (0.2-1.0) mg/dL AST 31 (15-37) IU/L ALT 32 (14-63) IU/L Alkaline Phosphatase 67 (46-116) U/L Troponin I < 0.050 (0.000-0.056) ng/mL Total Protein 8.1 (6.4-8.2) g/dL Albumin 3.9 (3.4-5.0) g/dL Globulin 4.2 H (2.6-4.0) g/dL Albumin/Globulin Ratio 0.9 (0.9-1.6) TSH 3rd Generation 0.46 (0.36-3.74) uIU/mL Ethyl Alcohol 115 mg/dL Meds: Medications Generic Name Dose Route Start Last Admin Trade Name Freq PRN Reason Stop Dose Admin Sodium Chloride 10 ml 06/29/19 19:58 06/29/19 20:28 Saline Flush FLUSH 10 ml ASDIRECTED PRN Administration Keep Vein Open Sodium Chloride 2.5 ml 06/29/19 19:58 06/29/19 20:28 Saline Flush FLUSH 2.5 ml ASDIRECTED PRN Administration Keep Vein Open Sodium Chloride 10 ml 06/29/19 19:58 Normal Saline IV ASDIRECTED PRN IV Use Discontinued Medications Generic Name Dose Route Start Last Admin Trade Name Freq PRN Reason Stop Dose Admin Aspirin 324 mg 06/29/19 20:49 06/29/19 20:55 Aspirin PO 06/29/19 20:50 324 mg ONETIME ONE Administration Labetalol HCl 20 mg 06/29/19 20:22 06/29/19 20:27 Normodyne IVPUSH 06/29/19 20:23 10 mg ONETIME ONE Administration Protocol Labetalol HCl 10 mg 06/29/19 20:30 06/29/19 20:35 Normodyne IVPUSH 06/29/19 20:31 Not Given ONETIME ONE Protocol Departure - Departure Time of Disposition: 20:54 Disposition: DC/Tfer to Acute Hospital 02 Clinical Impression: Acute lacunar stroke Alcohol intoxication Qualifiers: Complication of substance-induced condition: with unspecified complication Qualified Code(s): F10.929 - Alcohol use, unspecified with intoxication, unspecified - Discharge Information Referrals: PCP,None [Primary Care Provider] - Forms: ED Department Discharge - My Orders Last 24 Hours: My Active Orders 10/11/19 19:58 Assess Neurological Status [RC] ASDIRECTED Bedrest [RC] ASDIRECTED Cardiac Monitoring [RC] . DIRECTED EKG Documentation Completion [RC] STAT Height and Weight [RC] UPON Initiate Acute Stroke Protocol [RC] STAT NIH Stroke Scale [RC] ASDIRECTED Nursing Bedside Swallow Screen [RC] ASDIRECTED Oxygen Therapy [RC] ASDIRECTED Stroke Education, General [RC] Click to Edit Vital Signs [RC] Q15M UA RFX LETICIA AND CULT IF INDIC [URIN] Stat Sodium Chloride 0.9% [Normal Saline] 10 ml IV ASDIRECTED PRN Sodium Chloride 0.9% [Saline Flush] 10 ml FLUSH ASDIRECTED PRN Sodium Chloride 0.9% [Saline Flush] 2.5 ml FLUSH ASDIRECTED PRN Peripheral IV Insertion Adult [OM.PC] Stat 06/29/19 19:59 DRUG SCREEN, URINE [URCHEM] Stat - Assessment/Plan Last 24 Hours: My Active Orders 06/29/19 19:58 Assess Neurological Status [RC] ASDIRECTED Bedrest [RC] ASDIRECTED Cardiac Monitoring [RC] . DIRECTED EKG Documentation Completion [RC] STAT Height and Weight [RC] UPON Initiate Acute Stroke Protocol [RC] STAT NIH Stroke Scale [RC] ASDIRECTED Nursing Bedside Swallow Screen [RC] ASDIRECTED Oxygen Therapy [RC] ASDIRECTED Stroke Education, General [RC] Click to Edit Vital Signs [RC] Q15M UA RFX LETICIA AND CULT IF INDIC [URIN] Stat Sodium Chloride 0.9% [Normal Saline] 10 ml IV ASDIRECTED PRN Sodium Chloride 0.9% [Saline Flush] 10 ml FLUSH ASDIRECTED PRN Sodium Chloride 0.9% [Saline Flush] 2.5 ml FLUSH ASDIRECTED PRN Peripheral IV Insertion Adult [OM.PC] Stat 06/29/19 19:59 DRUG SCREEN, URINE [URCHEM] Stat
--- NOTE | 2019-06-29 20:34 | CT ---
INDICATION: Stroke protocol. Altered mental status. Confusion. COMPARISON: 06/23/2019 TECHNIQUE: CT examination of the head was performed with 3 mm thick axial sections without intravenous contrast. Images were obtained from the vertex of the skull through the skull base, and I examined the images with the brain and bone windows. Please note that all CT scans at this facility use dose modulation, iterative reconstruction, and/or weight-based dosing when appropriate to reduce radiation dose to as low as reasonably achievable. FINDINGS: There is a new small poorly defined area of hypodensity in the posterior left globus pallidus consistent with an acute lacunar infarct. There is no sign of any hemorrhage or mass effect. The rest of the brain is normal in appearance for the patient`s age on today`s study, with no sign of mass lesion, mass effect, hemorrhage, or edema. The ventricles and sulci are normal in appearance for the patient`s age. Again seen is dense dural calcification of the anterior falx and of the anterior parietal regions, right greater than left. Again seen is mild nodular calcification of the superior tentorium. The visualized portions of the orbits are normal in appearance. The visualized paranasal sinuses and mastoids are clear. The osseous structures are normal in their appearance with no sign of abnormality in the skull base or calvarium. IMPRESSION: New acute lacunar infarct in the posterior left globus pallidus with no sign of any hemorrhage or mass effect. The rest of the brain parenchyma is normal in appearance. Stable dural calcifications as described above, of no clinical concern. Please note that all CT scans at this facility use dose modulation, iterative reconstruction, and/or weight-based dosing when appropriate to reduce radiation dose to as low as reasonably achievable. Dictated by José Chávez MD @ Jun 29 2019 8:27PM Signed by Dr. José Chávez @ Jun 29 2019 8:33PM
[2019-06-29] MEDS ORDERED: Aspirin 81 MG Tab.Chew PO ONE (20:49)
--- NOTE | 2019-06-29 20:54 | CR ---
INDICATION: Stroke code TECHNIQUE: Chest radiograph 1 view COMPARISON: 06/23/2019 FINDINGS: Mediastinum: The mediastinum is normal in appearance. The heart silhouette is normal in size and morphology. Lung: Small lung volumes are present and decreased compared to prior exam. No sign of pleural effusion seen. No pneumothorax is identified. Bone and Soft tissue: Unremarkable for age. IMPRESSION: 1. No acute cardiopulmonary disease is seen. Dictated by Pratik Lizama MD @ 06/29/2019 8:53:12 PM Dictated by: Pratik Lizama MD @ 06/29/2019 20:53:18 (Electronically Signed)
[2019-06-29 20:58] LABS: BLOOD UREA NITROGEN,BUN 13 mg/dL (7.0-18.0); CARBON DIOXIDE,CO2 24.9 mmol/L (21.0-32.0); CHLORIDE,CL 102 mmol/L (98-107); GLUCOSE RANDOM 90 mg/dL (74-106); POTASSIUM,K 3.7 mmol/L (3.5-5.1); SODIUM,NA 140 mmol/L (136-145)
[2019-06-29 21:54] VITALS: BP 148/95; PULSE 73
== END 2019-06-29 21:56 ==
LOC: MW.ED 19:56
DX: I63.81 Other cerebral infarction due to occlusion or stenosis of small artery (principal); F10.129 Alcohol abuse with intoxication, unspecified; Y90.5 Blood alcohol level of 100-119 mg/100 ml; I10 Essential (primary) hypertension; E11.9 Type 2 diabetes mellitus without complications; E78.00 Pure hypercholesterolemia, unspecified; J45.909 Unspecified asthma, uncomplicated; F17.210 Nicotine dependence, cigarettes, uncomplicated; Z79.899 Other long term (current) drug therapy; Z79.84 Long term (current) use of oral hypoglycemic drugs
CPT/HCPCS: 36415; 70450; 71045; 80053; 80320; 83735; 84443; 84484; 85025; 85610; 85730; 93005; 96374; 99285; A9270; J3490; G0480

== ENCOUNTER 2020-04-06 07:35 | Observation (INO) | payer MEDICAID, OTHER ==
[2020-04-06] MEDS ORDERED: Sodium Chloride 0.9% 10 ML Syringe FLUSH PRN (07:42)
[2020-04-06] MEDS ORDERED: Morphine 4 MG/ML Syringe IVPUSH ONE (07:42)
--- NOTE | 2020-04-06 07:45 | EDM.PDOC ---
ED HPI GENERAL MEDICAL PROBLEM - General Stated Complaint: CHEST PAIN Time Seen by Provider: 04/06/20 07:41 - History of Present Illness INITIAL COMMENTS - FREE TEXT/NARRATIVE: History of present illness: 54-year-old female brought by EMS presenting with substernal chest discomfort that she describes as a burning and severe that woke her up from sleep around 5 AM this morning. Pain 7 out of 10. No associated shortness of breath or leg pain. She does report that she is feeling nervous. No prior similar symptoms. Per EMS vital signs were stable other than elevated blood pressure in the 180s to 200s systolic. She did receive 324 mg of aspirin and 1 nitroglycerin by EMS. No abdominal pain. No nausea or vomiting. Review of systems: As per history of present illness and below otherwise all systems reviewed and negative. Past medical history: As per history of present illness and as reviewed below otherwise noncontributory. Hypertension Surgical history: As per history of present illness and as reviewed below otherwise noncontributo ry. Social history: No reported history of drug or alcohol abuse. Daily tobacco smoker Family history: As per history of present illness and as reviewed below otherwise noncontributory. Physical exam: GEN: no acute distress, well appearing HEENT: Atraumatic, normocephalic, mucous membranes moist, Neck: supple, nontender, trachea midline. Lungs: No respiratory distress. Heart: RRR Abdomen: Soft, nondistended, nontender. Back: nontender Extremities: Atraumatic. Neurovascularly intact. No calf tenderness Neuro: Awake, alert, oriented. Neuro Exam nonfocal. Psych: Appears anxious Skin: warm, dry, no lesions Diagnostics: EKG performed at 7:29 AM, sinus rhythm, rate 88, right bundle branch block and left anterior fascicular block. No acute ischemia or STEMI seen. Therapeutics: [] MDM: Impression: [] Plan: [] Definitive disposition and diagnosis as appropriate pending reevaluation and review of above. Middle Chest Pain Score (Numeric/FACES): 2 - Related Data Allergies Allergy/AdvReac Type Severity Reaction Status Date / Time No Known Allergies Allergy Verified 04/06/20 14:17 Home Meds: Home Meds atorvaSTATin [Lipitor] 40 mg PO BEDTIME 90 Days #30 tab 04/18/18 [Rx] Albuterol [Ventolin HFA] 2 puff INH Q4HR PRN #1 inhaler 07/22/18 [Rx] Glimepiride [Amaryl] 2 mg PO DAILY 07/22/18 [History] Lisinopril/Hydrochlorothiazide [Lisinopril-HCTZ 10-12.5 MG] 10 - 12.5 mg PO DAILY 06/23/19 [History] metFORMIN HCl [Metformin HCl] 1,000 mg PO DAILY 06/23/19 [History] Albuterol/Ipratropium [DuoNeb 3.0-0.5 MG/3 ML] 3 ml NEB Q6H PRN #60 neb 06/24/19 [Rx] Montelukast Sodium 10 mg PO DAILY 04/06/20 [History] Past Medical History HEENT History: Reports: Other (See Below) Other HEENT History: ear infection Cardiovascular History: Reports: High Cholesterol, Hypertension Respiratory History: Reports: Asthma, Sleep Apnea Gastrointestinal History: Reports: GERD Genitourinary History: Reports: None [employer]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 Musculoskeletal History: Reports: Other (See Below) Other Musculoskeletal History: ankle fracture - 2013 Neurological History: Reports: None Psychiatric History: Reports: None Endocrine/Metabolic History: Reports: Diabetes, Type II Hematologic History: Reports: None Immunologic History: Reports: None Oncologic (Cancer) History: Reports: None Dermatologic History: Reports: None - Infectious Disease History Infectious Disease History: Reports: Chicken Pox, Measles, Mumps - Past Surgical History Musculoskeletal Surgical History: Reports: Other (See Below) Social & Family History - Family History Family Medical History: Noncontributory Cardiac: Reports: Hypertension, [place] Respiratory: Reports: Asthma OBGYN: Reports: Musculoskeletal: Reports: Arthritis Neurological: Reports: CVA Endocrine/Metabolic: Reports: Diabetes, type II - Caffeine Use Caffeine Use: Reports: None ED ROS GENERAL - Review of Systems Review Of Systems: See Below (See HPI) ED EXAM, GENERAL - Physical Exam Exam: See Below (See HPI) Course - Vital Signs Text/Narrative:: Chest pain/burning, improved after aspirin, nitroglycerin x2 and morphine. EKG with no STEMI and no acute ischemic changes. Heart score 5. Initial troponin negative. Repeat troponin pending. Chest x-ray with no acute findings. Cardiomegaly. COVID swab negative. Last Recorded V/S: Last Vital Signs Temp 97.6 F 04/07/20 07:00 Pulse 89 04/07/20 07:00 Resp 20 04/07/20 07:00 BP 174/90 H 04/07/20 07:00 Pulse Ox 96 04/07/20 07:00 - Orders/Labs/Meds Orders: Active Orders 24 hr Category Date Time Status Patient Status [ADT] Routine ADT 04/06/20 10:26 Active RT Aerosol Therapy [RC] ASDIRECTED Care 04/06/20 07:56 Active Nitroglycerin [Nitrostat] Med 04/06/20 07:42 Active 0.4 mg SL Q5M PRN Sodium Chloride 0.9% [Saline Flush] Med 04/06/20 07:42 Active 10 ml FLUSH ASDIRECTED PRN Sodium Chloride 0.9% [Saline Flush] Med 04/06/20 07:42 Active 2.5 ml FLUSH ASDIRECTED PRN Saline Lock Insert [OM.PC] Stat Oth 04/06/20 07:42 Ordered Medication Orders Acetaminophen (Tylenol) 650 mg PO Q6H PRN PRN Reason: Pain Last Admin: 04/06/20 20:17 Dose: 650 mg Documented by: YOLI Albuterol/Ipratropium (Duoneb 3.0-0.5 Mg/3 Ml) 3 ml NEB Q4HRRT PRN PRN Reason: Wheezing Last Admin: 04/06/20 13:32 Dose: 3 ml Documented by: MICHAELA Albuterol/Ipratropium (Duoneb 3.0-0.5 Mg/3 Ml) 3 ml NEB Q6HRRT [facility] Last Admin: 04/07/20 05:44 Dose: 3 ml Documented by: Admin: 04/07/20 00:26 Dose: 3 ml Documented by: Admin: 04/06/20 19:29 Dose: 3 ml Documented by: MICHAELA Amlodipine Besylate (Norvasc) 5 mg PO DAILY [facility] Last Admin: 04/06/20 17:32 Dose: 5 mg Documented by: CAMILO Atorvastatin Calcium (Lipitor) 40 mg PO BEDTIME [facility] Last Admin: 04/06/20 20:17 Dose: 40 mg Documented by: YOLI Folic Acid (Folic Acid) 1 mg PO DAILY [facility] Last Admin: 04/06/20 17:32 Dose: 1 mg Documented by: CAMILO Lisinopril/HCTZ (Lisinopril-Hctz 10-12.5 Mg) 1 tab PO DAILY [facility] Last Admin: 04/06/20 13:08 Dose: 1 tab Documented by: CAMILO Insulin Aspart (Novolog) 0 unit SUBCUT TIDAC [facility]; Protocol Last Admin: 04/07/20 06:52 Dose: 1 unit Documented by: Admin: 04/06/20 17:17 Dose: Not Given Documented by: CAMILO Lorazepam (Ativan) 0 mg IVPUSH Q4H PRN; Protocol PRN Reason: CIWAA protocol Montelukast Sodium (Singulair) 10 mg PO DAILY [facility] Last Admin: 04/06/20 17:31 Dose: 10 mg Documented by: CAMILO Morphine Sulfate (Morphine) 2 mg IVPUSH Q4H PRN PRN Reason: Pain Last Admin: 04/07/20 02:44 Dose: 2 mg Documented by: Admin: 04/06/20 21:48 Dose: 2 mg Documented by: Admin: 04/06/20 17:34 Dose: 2 mg Documented by: CAMILO Nitroglycerin (Nitrostat) 0.4 mg SL Q5M PRN PRN Reason: Chest Pain Last Admin: 04/06/20 08:07 Dose: 0.4 mg Documented by: Admin: 04/06/20 08:00 Dose: 0.4 mg Documented by: LAZ Prednisone (Prednisone) 40 mg PO DAILY [facility] Last Admin: 04/06/20 17:35 Dose: 40 mg Documented by: CAMILO Sodium Chloride (Saline Flush) 10 ml FLUSH ASDIRECTED PRN PRN Reason: Keep Vein Open Last Admin: 04/06/20 08:04 Dose: 10 ml Documented by: LAZ Sodium Chloride (Saline Flush) 2.5 ml FLUSH ASDIRECTED PRN PRN Reason: Keep Vein Open Last Admin: 04/06/20 08:04 Dose: 2.5 ml Documented by: LAZ Thiamine HCl (Vitamin B-1) 100 mg PO DAILY [facility] Last Admin: 04/06/20 17:32 Dose: 100 mg Documented by: CAMILO Labs: Laboratory Tests 07/04/06/20 04/06/20 Range/Units 07:40 07:40 07:40 WBC 4.58 (4.0-11.0) K/uL RBC 4.09 L (4.30-5.90) M/uL Hgb 12.0 (12.0-16.0) g/dL Hct 36.3 (36.0-46.0) % MCV 88.8 (80.0-98.0) fL MCH 29.3 (27.0-32.0) pg MCHC 33.1 (31.0-37.0) g/dL RDW Std Deviation 45.0 (28.0-62.0) fl RDW Coeff of Jeannette 14 (11.0-15.0) % Plt Count 208 (150-400) K/uL MPV 10.20 (7.40-12.00) fL Neut % (Auto) 48.3 (48.0-80.0) % Lymph % (Auto) 38.0 (16.0-40.0) % [place] % (Auto) 10.7 (0.0-15.0) % Eos % (Auto) 2.6 (0.0-7.0) % Baso % (Auto) 0.4 (0.0-1.5) % Neut # (Auto) 2.2 (1.4-5.7) K/uL Lymph # (Auto) 1.7 (0.6-2.4) K/uL [place] # (Auto) 0.5 (0.0-0.8) K/uL Eos # (Auto) 0.1 (0.0-0.7) K/uL Baso # (Auto) 0.0 (0.0-0.1) K/uL Nucleated RBC % 0.0 /100WBC Nucleated RBCs # 0 K/uL INR Sodium 142 (136-145) mmol/L Potassium 4.1 (3.5-5.1) mmol/L Chloride 104 (98-107) mmol/L Carbon Dioxide 24.7 (21.0-32.0) mmol/L BUN 12 (7.0-18.0) mg/dL Creatinine 0.9 (0.6-1.0) mg/dL Est Cr Clr Drug Dosing 67.87 mL/min Estimated GFR (MDRD) > 60.0 ml/min Glucose 143 H (74-106) mg/dL Calcium 9.1 (8.5-10.1) mg/dL Magnesium (1.8-2.4) mg/dL Total Bilirubin 0.3 (0.2-1.0) mg/dL AST 35 (15-37) IU/L ALT 37 (14-63) IU/L Alkaline Phosphatase 76 (46-116) U/L Troponin I < 0.050 (0.000-0.056) ng/mL B-Natriuretic Peptide 14 (<100) PG/ML Total Protein 7.2 (6.4-8.2) g/dL Albumin 3.7 (3.4-5.0) g/dL Globulin 3.5 (2.6-4.0) g/dL Albumin/Globulin Ratio 1.1 (0.9-1.6) SARS Virus RNA (PCR) (NEGATIVE) 04/06/20 04/06/20 04/06/20 Range/Units 07:55 07:55 08:11 WBC (4.0-11.0) K/uL RBC (4.30-5.90) M/uL Hgb (12.0-16.0) g/dL Hct (36.0-46.0) % MCV (80.0-98.0) fL MCH (27.0-32.0) pg MCHC (31.0-37.0) g/dL RDW Std Deviation (28.0-62.0) fl RDW Coeff of Jeannette (11.0-15.0) % Plt Count (150-400) K/uL MPV (7.40-12.00) fL Neut % (Auto) (48.0-80.0) % Lymph % (Auto) (16.0-40.0) % [place] % (Auto) (0.0-15.0) % Eos % (Auto) (0.0-7.0) % Baso % (Auto) (0.0-1.5) % Neut # (Auto) (1.4-5.7) K/uL Lymph # (Auto) (0.6-2.4) K/uL [place] # (Auto) (0.0-0.8) K/uL Eos # (Auto) (0.0-0.7) K/uL Baso # (Auto) (0.0-0.1) K/uL Nucleated RBC % /100WBC Nucleated RBCs # K/uL INR 1.13 Sodium (136-145) mmol/L Potassium (3.5-5.1) mmol/L Chloride (98-107) mmol/L Carbon Dioxide (21.0-32.0) mmol/L BUN (7.0-18.0) mg/dL Creatinine (0.6-1.0) mg/dL Est Cr Clr Drug Dosing mL/min Estimated GFR (MDRD) ml/min Glucose (74-106) mg/dL Calcium (8.5-10.1) mg/dL Magnesium 1.8 (1.8-2.4) mg/dL Total Bilirubin (0.2-1.0) mg/dL AST (15-37) IU/L ALT (14-63) IU/L Alkaline Phosphatase (46-116) U/L Troponin I (0.000-0.056) ng/mL B-Natriuretic Peptide (<100) PG/ML Total Protein (6.4-8.2) g/dL Albumin (3.4-5.0) g/dL Globulin (2.6-4.0) g/dL Albumin/Globulin Ratio (0.9-1.6) SARS Virus RNA (PCR) NEGATIVE (NEGATIVE) 04/06/20 Range/Units 09:35 WBC (4.0-11.0) K/uL RBC (4.30-5.90) M/uL Hgb (12.0-16.0) g/dL Hct (36.0-46.0) % MCV (80.0-98.0) fL MCH (27.0-32.0) pg MCHC (31.0-37.0) g/dL RDW Std Deviation (28.0-62.0) fl RDW Coeff of Jeannette (11.0-15.0) % Plt Count (150-400) K/uL MPV (7.40-12.00) fL Neut % (Auto) (48.0-80.0) % Lymph % (Auto) (16.0-40.0) % [place] % (Auto) (0.0-15.0) % Eos % (Auto) (0.0-7.0) % Baso % (Auto) (0.0-1.5) % Neut # (Auto) (1.4-5.7) K/uL Lymph # (Auto) (0.6-2.4) K/uL [place] # (Auto) (0.0-0.8) K/uL Eos # (Auto) (0.0-0.7) K/uL Baso # (Auto) (0.0-0.1) K/uL Nucleated RBC % /100WBC Nucleated RBCs # K/uL INR Sodium (136-145) mmol/L Potassium (3.5-5.1) mmol/L Chloride (98-107) mmol/L Carbon Dioxide (21.0-32.0) mmol/L BUN (7.0-18.0) mg/dL Creatinine (0.6-1.0) mg/dL Est Cr Clr Drug Dosing mL/min Estimated GFR (MDRD) ml/min Glucose (74-106) mg/dL Calcium (8.5-10.1) mg/dL Magnesium (1.8-2.4) mg/dL Total Bilirubin (0.2-1.0) mg/dL AST (15-37) IU/L ALT (14-63) IU/L Alkaline Phosphatase (46-116) U/L Troponin I < 0.050 (0.000-0.056) ng/mL B-Natriuretic Peptide (<100) PG/ML Total Protein (6.4-8.2) g/dL Albumin (3.4-5.0) g/dL Globulin (2.6-4.0) g/dL Albumin/Globulin Ratio (0.9-1.6) SARS Virus RNA (PCR) (NEGATIVE) Meds: Medications Generic Name Dose Route Start Last Admin Trade Name Freq PRN Reason Stop Dose Admin Acetaminophen 650 mg 04/06/20 15:50 04/06/20 20:17 Tylenol PO 650 mg Q6H PRN Administration Pain Albuterol/Ipratropium 3 ml 04/06/20 13:15 04/06/20 13:32 Duoneb 3.0-0.5 Mg/3 Ml NEB 3 ml Q4HRRT PRN Administration Wheezing Albuterol/Ipratropium 3 ml 04/06/20 18:00 04/07/20 05:44 Duoneb 3.0-0.5 Mg/3 Ml NEB 3 ml Q6HRRT MARCELO Administration Amlodipine Besylate 5 mg 04/06/20 16:45 04/06/20 17:32 Norvasc PO 5 mg DAILY MARCELO Administration Atorvastatin Calcium 40 mg 04/06/20 21:00 04/06/20 20:17 Lipitor PO 40 mg BEDTIME MARCELO Administration Folic Acid 1 mg 04/06/20 16:45 04/06/20 17:32 Folic Acid PO 1 mg DAILY MARCELO Administration Lisinopril/HCTZ 1 tab 04/06/20 11:45 04/06/20 13:08 Lisinopril-Hctz 10-12.5 Mg PO 1 tab DAILY MARCELO Administration Insulin Aspart 0 unit 04/06/20 17:00 04/07/20 06:52 Novolog SUBCUT 1 unit TIDAC MARCELO Administration Protocol Lorazepam 0 mg 04/06/20 16:41 Ativan IVPUSH Q4H PRN CIWAA protocol Protocol Montelukast Sodium 10 mg 04/06/20 16:45 04/06/20 17:31 Singulair PO 10 mg DAILY MARCELO Administration Morphine Sulfate 2 mg 04/06/20 16:42 04/07/20 02:44 Morphine IVPUSH 2 mg Q4H PRN Administration Pain Nitroglycerin 0.4 mg 04/06/20 07:42 04/06/20 08:07 Nitrostat SL 0.4 mg Q5M PRN Administration Chest Pain Prednisone 40 mg 04/06/20 16:45 04/06/20 17:35 Prednisone PO 40 mg DAILY MARCELO Administration Sodium Chloride 10 ml 04/06/20 07:42 04/06/20 08:04 Saline Flush FLUSH 10 ml ASDIRECTED PRN Administration Keep Vein Open Sodium Chloride 2.5 ml 04/06/20 07:42 04/06/20 08:04 Saline Flush FLUSH 2.5 ml ASDIRECTED PRN Administration Keep Vein Open Thiamine HCl 100 mg 04/06/20 16:45 04/06/20 17:32 Vitamin B-1 PO 100 mg DAILY MARCELO Administration Discontinued Medications Generic Name Dose Route Start Last Admin Trade Name Freq PRN Reason Stop Dose Admin Albuterol/Ipratropium 3 ml 04/06/20 07:56 04/06/20 08:05 Duoneb 3.0-0.5 Mg/3 Ml NEB 04/06/20 07:57 3 ml ONETIME ONE Administration Albuterol/Ipratropium Confirm 04/06/20 07:56 04/06/20 08:05 Duoneb 3.0-0.5 Mg/3 Ml Administered 04/06/20 07:57 Not Given Dose 3 ml .ROUTE .STK-MED ONE Iopamidol 50 ml 04/06/20 18:53 04/06/20 18:54 Isovue-370 (76%) IV 04/06/20 18:54 50 ml ONETIME ONE Administration Morphine Sulfate 4 mg 04/06/20 07:42 04/06/20 08:01 Morphine IVPUSH 04/06/20 07:43 4 mg ONETIME ONE Administration - Re-Assessments/Exams Free Text/Narrative Re-Assessment/Exam: 04/06/20 08:13 She is feeling well. She is in no acute distress. She reports her pain is improved now 2 out of 10. Blood pressure in the 130s. 04/06/20 10:22 Patient is resting comfortably and in no acute distress. She reports her pain is at a very tolerable level right now. Discussed all results with the patient and recommendation for admission based on her notable cardiac risk factors and presentation of pain. She agrees with this plan and accepts to be admitted. 04/06/20 10:25 Dr. Lin called back and accepts the case for admission, requests to place the patient under observation, with telemetry Departure - Departure Time of Disposition: 10:23 Disposition: Refer to Observation Clinical Impression: Obesity (BMI 30-39.9), Chest pain, moderate coronary artery risk - My Orders Last 24 Hours: My Active Orders 04/06/20 07:42 Nitroglycerin [Nitrostat] 0.4 mg SL Q5M PRN Sodium Chloride 0.9% [Saline Flush] 10 ml FLUSH ASDIRECTED PRN Sodium Chloride 0.9% [Saline Flush] 2.5 ml FLUSH ASDIRECTED PRN Saline Lock Insert [OM.PC] Stat 04/06/20 07:56 RT Aerosol Therapy [RC] ASDIRECTED 04/06/20 10:26 Patient Status [ADT] Routine - Assessment/Plan Last 24 Hours: My Active Orders 04/06/20 07:42 Nitroglycerin [Nitrostat] 0.4 mg SL Q5M PRN Sodium Chloride 0.9% [Saline Flush] 10 ml FLUSH ASDIRECTED PRN Sodium Chloride 0.9% [Saline Flush] 2.5 ml FLUSH ASDIRECTED PRN Saline Lock Insert [OM.PC] Stat 04/06/20 07:56 RT Aerosol Therapy [RC] ASDIRECTED 04/06/20 10:26 Patient Status [ADT] Routine
[2020-04-06] MEDS ORDERED: Albuterol/Ipratropium 3.0-0.5 MG/3 ML Neb Soln ONE (07:56)
[2020-04-06] MEDS ORDERED: Albuterol/Ipratropium 3.0-0.5 MG/3 ML Neb Soln NEB ONE (07:56)
[2020-04-06] MEDS: Nitroglycerin 0.4 MG Tab.SL SL PRN ×2 (08:00→08:07)
[2020-04-06] MEDS: Sodium Chloride 0.9% 2.5 ML Syringe FLUSH PRN (08:04)
--- NOTE | 2020-04-06 08:21 | CR ---
INDICATION: Chest pain TECHNIQUE: Chest 1 view COMPARISON: None FINDINGS: Cardiovascular and mediastinum: Mild cardiomegaly. Normal pulmonary vasculature. Lungs and pleural spaces: Lungs are clear. No sign of infiltrate or mass. No sign of pleural effusion. No pneumothorax. Bones and soft tissues: No significant findings. IMPRESSION: Mild cardiomegaly without evidence of acute heart failure or other acute abnormality. Dictated by Wu Quintero MD @ Apr 06 2020 8:17AM Signed by Dr. Wu Quintero @ Apr 06 2020 8:18AM
[2020-04-06 08:28] LABS: BLOOD UREA NITROGEN,BUN 12 mg/dL (7.0-18.0); CARBON DIOXIDE,CO2 24.7 mmol/L (21.0-32.0); CHLORIDE,CL 104 mmol/L (98-107); GLUCOSE RANDOM 143 mg/dL (74-106); POTASSIUM,K 4.1 mmol/L (3.5-5.1); SODIUM,NA 142 mmol/L (136-145)
[2020-04-06] MEDS: Lisinopril/Hydrochlorothiazide 10-12.5 MG Tab PO SCH (13:08)
[2020-04-06] MEDS ORDERED: Albuterol/Ipratropium 3.0-0.5 MG/3 ML Neb Soln NEB PRN (13:15)
[2020-04-06] MEDS ORDERED: Acetaminophen 325 MG Tab PO PRN (15:50)
[2020-04-06] MEDS ORDERED: LORazepam 2 MG/ML SDV IVPUSH PRN (16:41)
--- NOTE | 2020-04-06 16:51 | PCM.HP.2 ---
H&P History of Present Illness - General Date of Service: 04/06/20 Admit Problem/Dx: Admission Diagnosis/Problem Admission Diagnosis/Problem Chest pain with moderate risk of acute coronary syndrome - History of Present Illness Initial Comments - Free Text/Narative: 54 yo female with pmh of CVA, DM, asthma and hypertension who presents to the ED with chest pain. Patient describes her chest pain as pressure that is substernal and radiates to the back. She reports shortness of breath and wheezing as well. She states her blood pressure has been high at home and she ran out of her antihypertension medications yesterday. By EMS her blood pressure was noted to be in the 180s. She was given ASA and nitro. Her initial EKG and troponin did not show any signs of cardiac ischemia. She admitted to me only drinking occasionally but told the nurse she drinks vodka every other day until she can "feel it." Middle Chest Pain Score (Numeric/FACES): 2 - Related Data Allergies/Adverse Reactions: Allergies Allergy/AdvReac Type Severity Reaction Status Date / Time No Known Allergies Allergy Verified 04/06/20 14:17 Home Medications: Home Meds atorvaSTATin [Lipitor] 40 mg PO BEDTIME 90 Days #30 tab 04/18/18 [Rx] Glimepiride [Amaryl] 2 mg PO DAILY 07/22/18 [History] metFORMIN HCl [Metformin HCl] 1,000 mg PO DAILY 06/23/19 [History] Albuterol/Ipratropium [DuoNeb 3.0-0.5 MG/3 ML] 3 ml NEB Q6H PRN #60 neb 06/24/19 [Rx] Montelukast Sodium 10 mg PO DAILY 04/06/20 [History] Albuterol [Ventolin HFA] 2 puff INH Q4HR PRN #1 inhaler 04/07/20 [Rx] Fluticasone Propion/Salmeterol [Fluticasone-Salmeterol 250-50] 1 inh IH BID #1 04/07/20 [Rx] Lisinopril/Hydrochlorothiazide [Lisinopril-HCTZ 10-12.5 MG] 10 - 12.5 mg PO DAILY #30 04/07/20 [Rx] amLODIPine Besylate [Amlodipine Besylate] 10 mg PO DAILY #30 tablet 04/07/20 [Rx] predniSONE [Prednisone] 50 mg PO DAILY #3 tablet 04/07/20 [Rx] Past Medical History HEENT History: Reports: Other (See Below) Other HEENT History: ear infection Cardiovascular History: Reports: High Cholesterol, Hypertension Respiratory History: Reports: Asthma, Sleep Apnea Gastrointestinal History: Reports: GERD Genitourinary History: Reports: None 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 OB/BYN History: 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 Musculoskeletal History: Reports: Other (See Below) Other Musculoskeletal History: ankle fracture - 2013 Neurological History: Reports: TIA Psychiatric History: Reports: None Endocrine/Metabolic History: Reports: Diabetes, Type II Hematologic History: Reports: None Immunologic History: Reports: None Oncologic (Cancer) History: Reports: None Dermatologic History: Reports: None - Infectious Disease History Infectious Disease History: Reports: Chicken Pox, Measles, Mumps - Past Surgical History Cardiovascular Surgical History: Reports: None Respiratory Surgical History: Reports: None GI Surgical History: Reports: None Musculoskeletal Surgical History: Reports: Other (See Below) Social & Family History - Family History Family Medical History: Noncontributory Cardiac: Reports: Hypertension, [place] Respiratory: Reports: Asthma OBGYN: Reports: Musculoskeletal: Reports: Arthritis Neurological: Reports: CVA Endocrine/Metabolic: Reports: Diabetes, type II - Tobacco Use Smoking Status *Q: Current Every Day Smoker Years of Tobacco use: 41 Packs/Tins Daily: 1 Used Tobacco, but Quit: No Second Hand Smoke Exposure: No - Caffeine Use Caffeine Use: Reports: None - Alcohol Use Days Per Week of Alcohol Use: 2 Number of Drinks Per Day: 1 Total Drinks Per Week: 2 Date of Last Drink: 04/05/20 Time of Last Drink: 16:00 - Recreational Drug Use Recreational Drug Use: No H&P Review of Systems - Review of Systems: Review Of Systems: Comprehensive ROS is negative, except as noted in HPI. Exam - Exam Exam: See Below - Vital Signs Vital Signs: Last Vital Signs Temp 36.5 C 04/06/20 12:00 Pulse 68 04/06/20 12:00 Resp 20 04/06/20 12:00 BP 166/68 H 04/06/20 12:00 Pulse Ox 100 04/06/20 12:00 Weight: 111.493 kg - Exam General: Alert, Oriented HEENT: Posterior Pharynx Clear Lungs: Clear to Auscultation, Normal Respiratory Effort Cardiovascular: Regular Rate, Regular Rhythm GI/Abdominal Exam: Normal Bowel Sounds, Soft, Non-Tender, No Distention Extremities: Non-Tender, No Pedal Edema Skin: Warm, Dry, Intact - Patient Data Lab Results Last 24 hrs: Laboratory Results - last 24 hr 04/06/20 04/06/20 04/06/20 Range/Units 07:40 07:40 07:40 WBC 4.58 (4.0-11.0) K/uL RBC 4.09 L (4.30-5.90) M/uL Hgb 12.0 (12.0-16.0) g/dL Hct 36.3 (36.0-46.0) % MCV 88.8 (80.0-98.0) fL MCH 29.3 (27.0-32.0) pg MCHC 33.1 (31.0-37.0) g/dL RDW Std Deviation 45.0 (28.0-62.0) fl RDW Coeff of Jeannette 14 (11.0-15.0) % Plt Count 208 (150-400) K/uL MPV 10.20 (7.40-12.00) fL Neut % (Auto) 48.3 (48.0-80.0) % Lymph % (Auto) 38.0 (16.0-40.0) % [place] % (Auto) 10.7 (0.0-15.0) % Eos % (Auto) 2.6 (0.0-7.0) % Baso % (Auto) 0.4 (0.0-1.5) % Neut # (Auto) 2.2 (1.4-5.7) K/uL Lymph # (Auto) 1.7 (0.6-2.4) K/uL [place] # (Auto) 0.5 (0.0-0.8) K/uL Eos # (Auto) 0.1 (0.0-0.7) K/uL Baso # (Auto) 0.0 (0.0-0.1) K/uL Nucleated RBC % 0.0 /100WBC Nucleated RBCs # 0 K/uL INR Sodium 142 (136-145) mmol/L Potassium 4.1 (3.5-5.1) mmol/L Chloride 104 (98-107) mmol/L Carbon Dioxide 24.7 (21.0-32.0) mmol/L BUN 12 (7.0-18.0) mg/dL Creatinine 0.9 (0.6-1.0) mg/dL Est Cr Clr Drug Dosing 67.87 mL/min Estimated GFR (MDRD) > 60.0 ml/min Glucose 143 H (74-106) mg/dL Calcium 9.1 (8.5-10.1) mg/dL Magnesium (1.8-2.4) mg/dL Total Bilirubin 0.3 (0.2-1.0) mg/dL AST 35 (15-37) IU/L ALT 37 (14-63) IU/L Alkaline Phosphatase 76 (46-116) U/L Troponin I < 0.050 (0.000-0.056) ng/mL B-Natriuretic Peptide 14 (<100) PG/ML Total Protein 7.2 (6.4-8.2) g/dL Albumin 3.7 (3.4-5.0) g/dL Globulin 3.5 (2.6-4.0) g/dL Albumin/Globulin Ratio 1.1 (0.9-1.6) SARS Virus RNA (PCR) (NEGATIVE) 04/06/20 04/06/20 04/06/20 Range/Units 07:55 07:55 08:11 WBC (4.0-11.0) K/uL RBC (4.30-5.90) M/uL Hgb (12.0-16.0) g/dL Hct (36.0-46.0) % MCV (80.0-98.0) fL MCH (27.0-32.0) pg MCHC (31.0-37.0) g/dL RDW Std Deviation (28.0-62.0) fl RDW Coeff of Jeannette (11.0-15.0) % Plt Count (150-400) K/uL MPV (7.40-12.00) fL Neut % (Auto) (48.0-80.0) % Lymph % (Auto) (16.0-40.0) % [place] % (Auto) (0.0-15.0) % Eos % (Auto) (0.0-7.0) % Baso % (Auto) (0.0-1.5) % Neut # (Auto) (1.4-5.7) K/uL Lymph # (Auto) (0.6-2.4) K/uL [place] # (Auto) (0.0-0.8) K/uL Eos # (Auto) (0.0-0.7) K/uL Baso # (Auto) (0.0-0.1) K/uL Nucleated RBC % /100WBC Nucleated RBCs # K/uL INR 1.13 Sodium (136-145) mmol/L Potassium (3.5-5.1) mmol/L Chloride (98-107) mmol/L Carbon Dioxide (21.0-32.0) mmol/L BUN (7.0-18.0) mg/dL Creatinine (0.6-1.0) mg/dL Est Cr Clr Drug Dosing mL/min Estimated GFR (MDRD) ml/min Glucose (74-106) mg/dL Calcium (8.5-10.1) mg/dL Magnesium 1.8 (1.8-2.4) mg/dL Total Bilirubin (0.2-1.0) mg/dL AST (15-37) IU/L ALT (14-63) IU/L Alkaline Phosphatase (46-116) U/L Troponin I (0.000-0.056) ng/mL B-Natriuretic Peptide (<100) PG/ML Total Protein (6.4-8.2) g/dL Albumin (3.4-5.0) g/dL Globulin (2.6-4.0) g/dL Albumin/Globulin Ratio (0.9-1.6) SARS Virus RNA (PCR) NEGATIVE (NEGATIVE) 04/06/20 04/06/20 Range/Units 09:35 15:36 WBC (4.0-11.0) K/uL RBC (4.30-5.90) M/uL Hgb (12.0-16.0) g/dL Hct (36.0-46.0) % MCV (80.0-98.0) fL MCH (27.0-32.0) pg MCHC (31.0-37.0) g/dL RDW Std Deviation (28.0-62.0) fl RDW Coeff of Jeannette (11.0-15.0) % Plt Count (150-400) K/uL MPV (7.40-12.00) fL Neut % (Auto) (48.0-80.0) % Lymph % (Auto) (16.0-40.0) % [place] % (Auto) (0.0-15.0) % Eos % (Auto) (0.0-7.0) % Baso % (Auto) (0.0-1.5) % Neut # (Auto) (1.4-5.7) K/uL Lymph # (Auto) (0.6-2.4) K/uL [place] # (Auto) (0.0-0.8) K/uL Eos # (Auto) (0.0-0.7) K/uL Baso # (Auto) (0.0-0.1) K/uL Nucleated RBC % /100WBC Nucleated RBCs # K/uL INR Sodium (136-145) mmol/L Potassium (3.5-5.1) mmol/L Chloride (98-107) mmol/L Carbon Dioxide (21.0-32.0) mmol/L BUN (7.0-18.0) mg/dL Creatinine (0.6-1.0) mg/dL Est Cr Clr Drug Dosing mL/min Estimated GFR (MDRD) ml/min Glucose (74-106) mg/dL Calcium (8.5-10.1) mg/dL Magnesium (1.8-2.4) mg/dL Total Bilirubin (0.2-1.0) mg/dL AST (15-37) IU/L ALT (14-63) IU/L Alkaline Phosphatase (46-116) U/L Troponin I < 0.050 < 0.050 (0.000-0.056) ng/mL B-Natriuretic Peptide (<100) PG/ML Total Protein (6.4-8.2) g/dL Albumin (3.4-5.0) g/dL Globulin (2.6-4.0) g/dL Albumin/Globulin Ratio (0.9-1.6) SARS Virus RNA (PCR) (NEGATIVE) Result Diagrams: 04/07/20 05:09 04/07/20 05:09 Sepsis Event Note - Evaluation Sepsis Screening Result: No Definite Risk - Focused Exam Vital Signs: Vital Signs Temp Pulse Resp BP BP Pulse Ox 04/06/20 12:00 36.5 C 68 20 166/68 H 100 04/06/20 11:24 67 16 127/82 98 04/06/20 10:01 68 20 146/80 H 99 04/06/20 08:11 75 16 131/77 99 04/06/20 08:07 78 19 139/82 139/82 99 04/06/20 08:00 152/90 H 04/06/20 07:45 36.6 C 82 14 168/110 H 99 Date Exam was Performed: 04/07/20 Time Exam was Performed: 12:32 Problem List Initiated/Reviewed/Updated: Yes Orders Last 24hrs: Active Orders 24 hr Category Date Time Status Patient Status [ADT] Routine ADT 04/06/20 10:26 Active Blood Glucose Check, Bedside [RC] TIDAC Care 04/06/20 11:44 Active Cardiac Monitoring [RC] . DIRECTED Care 04/06/20 11:44 Active EKG Documentation Completion [RC] STAT Care 04/06/20 07:42 Active RT Aerosol Therapy [RC] ASDIRECTED Care 04/06/20 07:56 Active RT Aerosol Therapy [RC] ASDIRECTED Care 04/06/20 13:15 Active RT Aerosol Therapy [RC] ASDIRECTED Care 04/06/20 16:43 Active Up ad Emperatriz [RC] ASDIRECTED Care 04/06/20 11:44 Active Vital Signs [RC] Q4H Care 04/06/20 11:44 Active ADA Diabetic [[place] [employer] Diet] [DIET Diet 04/06/20 Lunch Active ] Chest PE [Ang Chest] [CT] Stat Exams 04/06/20 16:38 Ordered TROPONIN I [CHEM] Routine Lab 04/06/20 21:30 Ordered Acetaminophen [Tylenol] Med 04/06/20 15:50 Active 650 mg PO Q6H PRN Albuterol/Ipratropium [DuoNeb 3.0-0.5 MG/3 ML] Med 04/06/20 13:15 Active 3 ml NEB Q4HRRT PRN Albuterol/Ipratropium [DuoNeb 3.0-0.5 MG/3 ML] Med 04/06/20 18:00 Ordered 3 ml NEB Q6HRRT Folic Acid Med 04/06/20 16:45 Ordered 1 mg PO DAILY Insulin Aspart [NovoLOG] Med 04/06/20 17:00 Active See Protocol SUBCUT TIDAC LORazepam [Ativan] Med 04/06/20 16:41 Ordered See Protocol IVPUSH Q4H PRN Lisinopril/Hydrochlorothiazide [Lisinopril-HCTZ 10-12.5 Med 04/06/20 11:45 Active MG] 1 tab PO DAILY Montelukast [Singulair] Med 04/06/20 16:45 Active 10 mg PO DAILY Morphine Med 04/06/20 16:42 Ordered 2 mg IVPUSH Q4H PRN Nitroglycerin [Nitrostat] Med 04/06/20 07:42 Active 0.4 mg SL Q5M PRN Sodium Chloride 0.9% [Saline Flush] Med 04/06/20 07:42 Active 10 ml FLUSH ASDIRECTED PRN Sodium Chloride 0.9% [Saline Flush] Med 04/06/20 07:42 Active 2.5 ml FLUSH ASDIRECTED PRN Thiamine [Vitamin B-1] Med 04/06/20 16:45 Ordered 100 mg PO DAILY amLODIPine [Norvasc] Med 04/06/20 16:45 Ordered 5 mg PO DAILY atorvaSTATin [Lipitor] Med 04/06/20 21:00 Active 40 mg PO BEDTIME predniSONE Med 04/06/20 16:45 Ordered 40 mg PO DAILY Saline Lock Insert [OM.PC] Stat Oth 04/06/20 07:42 Ordered Medication Orders Acetaminophen (Tylenol) 650 mg PO Q6H PRN PRN Reason: Pain Albuterol/Ipratropium (Duoneb 3.0-0.5 Mg/3 Ml) 3 ml NEB Q4HRRT PRN PRN Reason: Wheezing Last Admin: 04/06/20 13:32 Dose: 3 ml Documented by: TROWLAR Albuterol/Ipratropium (Duoneb 3.0-0.5 Mg/3 Ml) 3 ml NEB Q6HRRT MARCELO Amlodipine Besylate (Norvasc) 5 mg PO DAILY MARCELO Atorvastatin Calcium (Lipitor) 40 mg PO BEDTIME MARCELO Folic Acid (Folic Acid) 1 mg PO DAILY MARCELO Lisinopril/HCTZ (Lisinopril-Hctz 10-12.5 Mg) 1 tab PO DAILY MARCELO Last Admin: 04/06/20 13:08 Dose: 1 tab Documented by: CAMILO Insulin Aspart (Novolog) 0 unit SUBCUT TIDAC MARCELO; Protocol Lorazepam (Ativan) 0 mg IVPUSH Q4H PRN; Protocol PRN Reason: CIWAA protocol Montelukast Sodium (Singulair) 10 mg PO DAILY [facility] Morphine Sulfate (Morphine) 2 mg IVPUSH Q4H PRN PRN Reason: Pain Nitroglycerin (Nitrostat) 0.4 mg SL Q5M PRN PRN Reason: Chest Pain Last Admin: 04/06/20 08:07 Dose: 0.4 mg Documented by: Admin: 04/06/20 08:00 Dose: 0.4 mg Documented by: LAZ Prednisone (Prednisone) 40 mg PO DAILY [facility] Sodium Chloride (Saline Flush) 10 ml FLUSH ASDIRECTED PRN PRN Reason: Keep Vein Open Last Admin: 04/06/20 08:04 Dose: 10 ml Documented by: LAZ Sodium Chloride (Saline Flush) 2.5 ml FLUSH ASDIRECTED PRN PRN Reason: Keep Vein Open Last Admin: 04/06/20 08:04 Dose: 2.5 ml Documented by: LAZ Thiamine HCl (Vitamin B-1) 100 mg PO DAILY [facility] Assessment/Plan Comment:: 54 yo female admitted with chest pain and asthma exacerbation Chest pain: will monitor on telemetry and trend cardiac enzymes HTN: HCTZ/linisonpril restarted. will add amlodipine Asthma: duonebs and prednisone.
[2020-04-06] MEDS: Insulin Aspart 100 Units/ML 3 ML Pen SUBCUT SCH (17:17)
[2020-04-06] MEDS: Montelukast 10 MG Tab PO SCH (17:31)
[2020-04-06] MEDS: Folic Acid 1 MG Tab PO SCH (17:32)
[2020-04-06] MEDS: Thiamine 100 MG Tab PO SCH (17:32)
[2020-04-06] MEDS: amLODIPine 5 MG Tab PO SCH (17:32)
[2020-04-06] MEDS: Morphine 2 MG/ML SYRINGE IVPUSH PRN ×2 (17:34→21:48)
[2020-04-06] MEDS: predniSONE 20 MG Tab PO SCH (17:35)
--- NOTE | 2020-04-06 18:43 | CT ---
CT chest Technique: Multiple axial sections were obtained from above the lung apices inferiorly through the lung bases. Intravenous contrast was utilized. Study performed as a pulmonary angiogram protocol. Findings: Pulmonary arteries are not optimally opacified. No filling defects are seen within the main, segmental or proximal subsegmental branches. Smaller distal subsegmental pulmonary emboli could be missed. Aorta shows mild aneurysmal dilatation with the ascending aorta measuring 4.1 cm in AP dimension. Descending aorta measures about 2.8 cm. No pericardial thickening is seen. Visualized upper abdominal structures show nothing acute. No mediastinal adenopathy or hilar adenopathy is seen. Lungs show no acute parenchymal change. No pleural effusions or pneumothorax is seen. Bone window settings were reviewed. Mild degenerative change is noted within the spine. No acute osseous finding is appreciated. Impression: 1. Pulmonary arteries are not optimally opacified. No findings of pulmonary embolism are seen within the main, segmental or proximal subsegmental branches. Distal subsegmental branches are not optimally seen. 2. Slightly aneurysmal ascending aorta at 4.1 cm in AP dimension. 3. Nothing acute is appreciated. Diagnostic code #3 This report was dictated in MDT
[2020-04-06] MEDS ORDERED: Iopamidol 755 MG/ML 50 ML Bottle IV ONE (18:53)
[2020-04-06] MEDS: Albuterol/Ipratropium 3.0-0.5 MG/3 ML Neb Soln NEB SCH (19:29)
[2020-04-06] MEDS ORDERED: atorvaSTATin 40 MG Tab PO SCH (21:00)
[2020-04-07] MEDS: Albuterol/Ipratropium 3.0-0.5 MG/3 ML Neb Soln NEB SCH ×3 (00:26→11:20)
[2020-04-07] MEDS: Morphine 2 MG/ML SYRINGE IVPUSH PRN ×2 (02:44→07:53)
[2020-04-07 05:49] LABS: BLOOD UREA NITROGEN,BUN 14 mg/dL (7.0-18.0); CARBON DIOXIDE,CO2 23.6 mmol/L (21.0-32.0); CHLORIDE,CL 99 mmol/L (98-107); GLUCOSE RANDOM 214 mg/dL (74-106); POTASSIUM,K 4.1 mmol/L (3.5-5.1); SODIUM,NA 134 mmol/L (136-145)
[2020-04-07] MEDS: Insulin Aspart 100 Units/ML 3 ML Pen SUBCUT SCH ×2 (06:52→11:11)
[2020-04-07] MEDS: Sodium Chloride 0.9% 2.5 ML Syringe FLUSH PRN (07:54)
[2020-04-07] MEDS: amLODIPine 5 MG Tab PO SCH (09:14)
[2020-04-07] MEDS: Folic Acid 1 MG Tab PO SCH (09:14)
[2020-04-07] MEDS: Lisinopril/Hydrochlorothiazide 10-12.5 MG Tab PO SCH (09:14)
[2020-04-07] MEDS: predniSONE 20 MG Tab PO SCH (09:14)
[2020-04-07] MEDS: Montelukast 10 MG Tab PO SCH (09:15)
[2020-04-07] MEDS: Thiamine 100 MG Tab PO SCH (09:15)
[2020-04-07] MEDS ORDERED: amLODIPine 5 MG Tab PO ONE (10:09)
[2020-04-07] MEDS ORDERED: Alum Hydrox/Mag Hydrox/Simeth 15 ML, Lidocaine 2% 5 ML PO ONE ×2 (10:09)
[2020-04-07 10:57] VITALS: BP 142/84
[2020-04-07 12:09] VITALS: PULSE 84
--- NOTE | 2020-04-07 12:23 | PCM.DCSUM1 ---
Discharge Summary - Discharge Data Discharge Date: 04/07/20 Discharge Disposition: Home, Self-Care 01 Condition: Stable - Referral to Home Health Primary Care Physician: PCP None - Patient Summary/Data Hospital Course: 54 yo female with pmh of CVA, DM, asthma and hypertension who was admitted for asthma exacerbation and chest pain. She presented with shortness of breath and chest pressure. She was noted to be wheezing on exam. Her Blood pressure was in the 180s systolic on presenting ot ED. Inital EKG and troponin was negative for signs of acute ischemia. CXR was normal. Lab work was unremarkable. She was given nitro with improvement of her blood pressure. She had run out of her home antihypertensive medications and inhalers. Her home dose of Lisinopril/HCTZ was restarted and amolidpine was addedd for better blood pressure control. CT of chest was negative for PE or acute pathology. CT scan did report 4.1 cm slightly aneurysmal ascending aorta. She was informed of the CT scan findings and the need for follow up of the thoracic aorta aneurysm with likely repeat imaging in a year. She ruled out for acute coronary syndrome with serial negative cardiac enzymes. She was treated with prednisone and duonebs for asthma exacerbation. Her chest pain did resolve and today she is agreeable for discharge. She was referred to outpatient stress testing. New prescr iptions were given for her amlodipine and prednisone as well as her previous medications of Lisonpril/HCTZ,and inhalers. She is to follow up with [facility]. - Patient Instructions Diet: Diabetic Diet Activity: As Tolerated - Discharge Plan Prescriptions/Med Rec: amLODIPine Besylate [Amlodipine Besylate] 10 mg PO DAILY #30 tablet Fluticasone Propion/Salmeterol [Fluticasone-Salmeterol 250-50] 1 inh IH BID #1 Lisinopril/Hydrochlorothiazide [Lisinopril-HCTZ 10-12.5 MG] 10 - 12.5 mg PO DAILY #30 predniSONE [Prednisone] 50 mg PO DAILY #3 tablet Albuterol [Ventolin HFA] 2 puff INH Q4HR PRN #1 inhaler PRN Reason: Shortness Of Breath Home Medications: Home Meds atorvaSTATin [Lipitor] 40 mg PO BEDTIME 90 Days #30 tab 04/18/18 [Rx] Glimepiride [Amaryl] 2 mg PO DAILY 07/22/18 [History] metFORMIN HCl [Metformin HCl] 1,000 mg PO DAILY 06/23/19 [History] Albuterol/Ipratropium [DuoNeb 3.0-0.5 MG/3 ML] 3 ml NEB Q6H PRN #60 neb 06/24/19 [Rx] Montelukast Sodium 10 mg PO DAILY 04/06/20 [History] Albuterol [Ventolin HFA] 2 puff INH Q4HR PRN #1 inhaler 04/07/20 [Rx] Fluticasone Propion/Salmeterol [Fluticasone-Salmeterol 250-50] 1 inh IH BID #1 04/07/20 [Rx] Lisinopril/Hydrochlorothiazide [Lisinopril-HCTZ 10-12.5 MG] 10 - 12.5 mg PO DAILY #30 04/07/20 [Rx] amLODIPine Besylate [Amlodipine Besylate] 10 mg PO DAILY #30 tablet 04/07/20 [Rx] predniSONE [Prednisone] 50 mg PO DAILY #3 tablet 04/07/20 [Rx] Patient Handouts: Nonspecific Chest Pain, Adult, [id number] Referrals: Amanda Thayer NP [Nurse Practitioner] - 04/16/20 9:15 am (Arrive 15 minutes early with a photo ID, insurance card, and a mask. Dr. Hand is out of the clinic next week, which is why we scheduled you with someone else. ) - Discharge Summary/Plan Comment DC Time >30 min.: No - Patient Data Vitals - Most Recent: Last Vital Signs Temp 36.6 C 04/07/20 10:56 Pulse 84 04/07/20 10:56 Resp 18 04/07/20 10:56 BP 142/84 H 04/07/20 11:11 Pulse Ox 98 04/07/20 10:56 Weight - Most Recent: 111.493 kg I&O - Last 24 hours: Intake & Output 04/06/20 04/07/20 04/07/20 22:59 06:59 14:59 Intake Total 1000 840 Output Total 600 1200 Balance 400 -360 Lab Results - Last 24 hrs: Laboratory Results - last 24 hr 04/06/20 04/06/20 04/06/20 Range/Units 07:55 12:09 15:36 WBC (4.0-11.0) K/uL RBC (4.30-5.90) M/uL Hgb (12.0-16.0) g/dL Hct (36.0-46.0) % MCV (80.0-98.0) fL MCH (27.0-32.0) pg MCHC (31.0-37.0) g/dL RDW Std Deviation (28.0-62.0) fl RDW Coeff of Jeannette (11.0-15.0) % Plt Count (150-400) K/uL MPV (7.40-12.00) fL Neut % (Auto) (48.0-80.0) % Lymph % (Auto) (16.0-40.0) % [place] % (Auto) (0.0-15.0) % Eos % (Auto) (0.0-7.0) % Baso % (Auto) (0.0-1.5) % Neut # (Auto) (1.4-5.7) K/uL Lymph # (Auto) (0.6-2.4) K/uL Andrew # (Auto) (0.0-0.8) K/uL Eos # (Auto) (0.0-0.7) K/uL Baso # (Auto) (0.0-0.1) K/uL Nucleated RBC % /100WBC Nucleated RBCs # K/uL Sodium (136-145) mmol/L Potassium (3.5-5.1) mmol/L Chloride (98-107) mmol/L Carbon Dioxide (21.0-32.0) mmol/L BUN (7.0-18.0) mg/dL Creatinine (0.6-1.0) mg/dL Est Cr Clr Drug Dosing mL/min Estimated GFR (MDRD) ml/min Glucose (74-106) mg/dL POC Glucose 104 (60-110) mg/dL Calcium (8.5-10.1) mg/dL Magnesium 1.8 (1.8-2.4) mg/dL Troponin I < 0.050 (0.000-0.056) ng/mL 04/06/20 04/06/20 04/07/20 Range/Units 17:14 21:33 05:09 WBC 7.53 (4.0-11.0) K/uL RBC 3.97 L (4.30-5.90) M/uL Hgb 11.5 L (12.0-16.0) g/dL Hct 35.7 L (36.0-46.0) % MCV 89.9 (80.0-98.0) fL MCH 29.0 (27.0-32.0) pg MCHC 32.2 (31.0-37.0) g/dL RDW Std Deviation 45.1 (28.0-62.0) fl RDW Coeff of Jeannette 14 (11.0-15.0) % Plt Count 213 (150-400) K/uL MPV 10.40 (7.40-12.00) fL Neut % (Auto) 84.5 H (48.0-80.0) % Lymph % (Auto) 13.0 L (16.0-40.0) % [place] % (Auto) 2.4 (0.0-15.0) % Eos % (Auto) 0.0 (0.0-7.0) % Baso % (Auto) 0.1 (0.0-1.5) % Neut # (Auto) 6.4 H (1.4-5.7) K/uL Lymph # (Auto) 1.0 (0.6-2.4) K/uL Andrew # (Auto) 0.2 (0.0-0.8) K/uL Eos # (Auto) 0.0 (0.0-0.7) K/uL Baso # (Auto) 0.0 (0.0-0.1) K/uL Nucleated RBC % 0.0 /100WBC Nucleated RBCs # 0 K/uL Sodium (136-145) mmol/L Potassium (3.5-5.1) mmol/L Chloride (98-107) mmol/L Carbon Dioxide (21.0-32.0) mmol/L BUN (7.0-18.0) mg/dL Creatinine (0.6-1.0) mg/dL Est Cr Clr Drug Dosing mL/min Estimated GFR (MDRD) ml/min Glucose (74-106) mg/dL POC Glucose 100 (60-110) mg/dL Calcium (8.5-10.1) mg/dL Magnesium (1.8-2.4) mg/dL Troponin I < 0.050 (0.000-0.056) ng/mL 04/07/20 04/07/20 04/07/20 Range/Units 05:09 06:49 11:10 WBC (4.0-11.0) K/uL RBC (4.30-5.90) M/uL Hgb (12.0-16.0) g/dL Hct (36.0-46.0) % MCV (80.0-98.0) fL MCH (27.0-32.0) pg MCHC (31.0-37.0) g/dL RDW Std Deviation (28.0-62.0) fl RDW Coeff of Jeannette (11.0-15.0) % Plt Count (150-400) K/uL MPV (7.40-12.00) fL Neut % (Auto) (48.0-80.0) % Lymph % (Auto) (16.0-40.0) % Andrew % (Auto) (0.0-15.0) % Eos % (Auto) (0.0-7.0) % Baso % (Auto) (0.0-1.5) % Neut # (Auto) (1.4-5.7) K/uL Lymph # (Auto) (0.6-2.4) K/uL Andrew # (Auto) (0.0-0.8) K/uL Eos # (Auto) (0.0-0.7) K/uL Baso # (Auto) (0.0-0.1) K/uL Nucleated RBC % /100WBC Nucleated RBCs # K/uL Sodium 134 L (136-145) mmol/L Potassium 4.1 (3.5-5.1) mmol/L Chloride 99 (98-107) mmol/L Carbon Dioxide 23.6 (21.0-32.0) mmol/L BUN 14 (7.0-18.0) mg/dL Creatinine 1.0 (0.6-1.0) mg/dL Est Cr Clr Drug Dosing 61.09 mL/min Estimated GFR (MDRD) > 60.0 ml/min Glucose 214 H (74-106) mg/dL POC Glucose 177 H 156 H (60-110) mg/dL Calcium 9.7 (8.5-10.1) mg/dL Magnesium (1.8-2.4) mg/dL Troponin I (0.000-0.056) ng/mL Med Orders - Current: Current Medications Acetaminophen (Tylenol) 650 mg PO Q6H PRN PRN Reason: Pain Last Admin: 04/06/20 20:17 Dose: 650 mg Documented by: Albuterol/Ipratropium (Duoneb 3.0-0.5 Mg/3 Ml) 3 ml NEB Q4HRRT PRN PRN Reason: Wheezing Last Admin: 04/06/20 13:32 Dose: 3 ml Documented by: Albuterol/Ipratropium (Duoneb 3.0-0.5 Mg/3 Ml) 3 ml NEB Q6HRRT MARCELO Last Admin: 04/07/20 11:20 Dose: 3 ml Documented by: Amlodipine Besylate (Norvasc) 5 mg PO DAILY [facility] Last Admin: 04/07/20 09:14 Dose: 5 mg Documented by: Atorvastatin Calcium (Lipitor) 40 mg PO BEDTIME MARCELO Last Admin: 04/06/20 20:17 Dose: 40 mg Documented by: Folic Acid (Folic Acid) 1 mg PO DAILY [facility] Last Admin: 04/07/20 09:14 Dose: 1 mg Documented by: Lisinopril/HCTZ (Lisinopril-Hctz 10-12.5 Mg) 1 tab PO DAILY [facility] Last Admin: 04/07/20 09:14 Dose: 1 tab Documented by: Insulin Aspart (Novolog) 0 unit SUBCUT TIDAC [facility]; Protocol Last Admin: 04/07/20 11:11 Dose: 1 unit Documented by: Lorazepam (Ativan) 0 mg IVPUSH Q4H PRN; Protocol PRN Reason: CIWAA protocol Montelukast Sodium (Singulair) 10 mg PO DAILY [facility] Last Admin: 04/07/20 09:15 Dose: 10 mg Documented by: Morphine Sulfate (Morphine) 2 mg IVPUSH Q4H PRN PRN Reason: Pain Last Admin: 04/07/20 07:53 Dose: 2 mg Documented by: Nitroglycerin (Nitrostat) 0.4 mg SL Q5M PRN PRN Reason: Chest Pain Last Admin: 04/06/20 08:07 Dose: 0.4 mg Documented by: Prednisone (Prednisone) 40 mg PO DAILY [facility] Last Admin: 04/07/20 09:14 Dose: 40 mg Documented by: Sodium Chloride (Saline Flush) 10 ml FLUSH ASDIRECTED PRN PRN Reason: Keep Vein Open Last Admin: 04/06/20 08:04 Dose: 10 ml Documented by: Sodium Chloride (Saline Flush) 2.5 ml FLUSH ASDIRECTED PRN PRN Reason: Keep Vein Open Last Admin: 04/07/20 07:54 Dose: 2.5 ml Documented by: Thiamine HCl (Vitamin B-1) 100 mg PO DAILY [facility] Last Admin: 04/07/20 09:15 Dose: 100 mg Documented by: Discontinued Medications Albuterol/Ipratropium (Duoneb 3.0-0.5 Mg/3 Ml) 3 ml NEB ONETIME ONE Stop: 04/06/20 07:57 Last Admin: 04/06/20 08:05 Dose: 3 ml Documented by: Albuterol/Ipratropium (Duoneb 3.0-0.5 Mg/3 Ml) Confirm Administered Dose 3 ml .ROUTE .STK-MED ONE Stop: 04/06/20 07:57 Last Admin: 04/06/20 08:05 Dose: Not Given Documented by: Amlodipine Besylate (Norvasc) 5 mg PO ONETIME ONE Stop: 04/07/20 10:10 Last Admin: 04/07/20 11:11 Dose: 5 mg Documented by: Al Hydroxide/Mg Hydroxide 15 (ml/ Lidocaine HCl 5 ml) 0 ml PO ONETIME ONE Stop: 04/07/20 10:10 Last Admin: 04/07/20 12:09 Dose: 1 each Documented by: Iopamidol (Isovue-370 (76%)) 50 ml IV ONETIME ONE Stop: 04/06/20 18:54 Last Admin: 04/06/20 18:54 Dose: 50 ml Documented by: Morphine Sulfate (Morphine) 4 mg IVPUSH ONETIME ONE Stop: 04/06/20 07:43 Last Admin: 04/06/20 08:01 Dose: 4 mg Documented by:
== END 2020-04-07 12:39 | disposition home or self-care (01) ==
LOC: MW.ED 07:35 → MW.MS 11:15
PROVIDERS: ADMIT Internal Medicine; ATTEND Internal Medicine
DX: J45.901 Unspecified asthma with (acute) exacerbation (principal); R07.89 Other chest pain; I71.2 Thoracic aortic aneurysm, without rupture; K21.9 Gastro-esophageal reflux disease without esophagitis; G47.00 Insomnia, unspecified; I25.2 Old myocardial infarction; E11.9 Type 2 diabetes mellitus without complications; E66.9 Obesity, unspecified; F17.210 Nicotine dependence, cigarettes, uncomplicated; Z79.899 Other long term (current) drug therapy; Z79.51 Long term (current) use of inhaled steroids; Z79.84 Long term (current) use of oral hypoglycemic drugs; Z86.73 Personal history of transient ischemic attack (TIA), and cerebral infarction without residual deficits; Z20.828 Contact with and (suspected) exposure to other viral communicable diseases; Z68.38 Body mass index [BMI] 38.0-38.9, adult
CPT/HCPCS: 36415; 71045; 71275; 80048; 80053; 82962; 83735; 83880; 84484; 85025; 85610; 87635; 93005; 94640; 96374; 96376; 99285; A9270; G0378; J1815; J2270; Q9967; 99284; J7620-GY; U0002

== ENCOUNTER 2020-04-28 17:34 | Emergency (ER) | payer MEDICAID, OTHER ==
[2020-04-28] MEDS ORDERED: MVI, Adult with Vitamin K 10 ML, Thiamine 100 MG, Folic Acid 1 MG in Sodium Chloride 0.... IV ONE ×4 (17:55)
[2020-04-28] MEDS ORDERED: LORazepam 2 MG/ML SDV IVPUSH ONE (17:56)
--- NOTE | 2020-04-28 18:38 | CR ---
Chest: Portable view of the chest was obtained. Comparison: Prior chest CT of 04/06/20 and chest x-ray also performed on 04/06/20. Heart size and mediastinum are normal. Lungs are clear with no acute parenchymal change. Degenerative endplate spurring is noted within the spine. Impression: 1. Nothing acute is seen on portable chest x-ray. Diagnostic code #2 Study was dictated in MDT
--- NOTE | 2020-04-28 19:04 | EDM.PDOC ---
ED HPI GENERAL MEDICAL PROBLEM - General Chief Complaint: Drug or Alcohol Abuse Stated Complaint: ALCOHOL WITHDRAWL Time Seen by Provider: 04/28/20 17:36 Source of Information: Reports: Patient History Limitations: Reports: No Limitations - History of Present Illness INITIAL COMMENTS - FREE TEXT/NARRATIVE: HISTORY AND PHYSICAL: History of present illness: Patient is a 54-year-old female who presents to the emergency room from the [facility]. She presented there requesting inpatient alcohol treatment. They recommended she come to the emergency room for evaluation and further care. She typically will drink 1/5 of hard alcohol daily over the past 1 year. She states her last drink was yesterday evening. She currently feels a little anxious and is concerned that she may go through withdrawals. Has never had withdrawls in the past. She states "I need inpatient treatment or I am going to fail". Patient denies any fever, chills, headache, change in vision, syncope or near syncope. Denies any chest pain, back pain, shortness of breath or cough. Denies any abdominal pain, nausea, vomiting, diarrhea, constipation or dysuria. Has not noted any blood in urine or stool. Patient has been eating and drinking appropriately. Denies any visual or auditory donations. Denies any drug abuse. Past medical history of anxiety, asthma, hypertension and type 2 diabetes. She states her health is otherwise maintained and she sees a primary care provider routinely. Review of systems: As per history of present illness and below otherwise all systems reviewed and negative. Past medical history: As per history of present illness and as reviewed below otherwise noncontributory. Surgical history: As per history of present illness and as reviewed below otherwise noncontributory. Social history: See social history for further information Family history: As per history of present illness and as reviewed below otherwise noncontributory. Physical exam: General: Well-developed and well-nourished 54-year-old female. Alert and oriented. Nontoxic-appearing and in no acute distress. HEENT: Atraumatic, normocephalic, pupils equal and reactive bilaterally, n egative for conjunctival pallor or scleral icterus, mucous membranes moist, TMs normal bilaterally, throat clear, neck supple, nontender, trachea midline. No drooling or trismus noted. No meningeal signs. No hot potato voice noted. Lungs: Faint/fine expiratory wheezing to bilateral posterior bases, breath sounds equal bilaterally, chest nontender. Heart: S1S2, regular rate and rhythm without overt murmur Abdomen: Soft, nondistended, nontender. Negative for masses or hepatosplenomegaly. Negative for costovertebral tenderness. Pelvis: Stable nontender. Skin: Intact, warm, dry. No lesions or rashes noted. Hematologic: No petechiae or purpra. Mucosa appropriate color and normal nail bed color and refill. Extremities: Atraumatic, moves all extremities per self without difficulty or deficits, negative for cords or calf pain. Neurovascular unremarkable. Neuro: Awake, alert, oriented. Cranial nerves II through XII unremarkable. Cerebellum unremarkable. Motor and sensory unremarkable throughout. Exam nonfocal. Notes: CIWA 3. Patient is alert, oriented and answering questions appropriately. We discussed inpatient versus outpatient therapy. She would like "at least a month of inpatient treatment". She does have a support system in [facility] and believes a family member could drive her. I did call [facility], the closest facility and they are currently full. I did give her a information sheet for local resources along with other facilities that have inpatient treatment programs. Patient's vital signs are stable. Upon reevaluation she is appropriate for discharge. She states she feels well for discharge although she is upset that our facility does not provide transport or inpatient treatment at [facility]. we discussed signs and symptoms that would prompt her to return to the emergency room. So discussed the need for follow-up with her primary care provider. Supportive care measures were reviewed and discussed. Voices understanding and is agreeable to plan of care. Denies any further questions or concerns at this time. Diagnostics: CBC, CMP, EtOH, chest x-ray Therapeutics: IV banana bag, Ativan Prescription: None Impression: Alcohol abuse Plan: 1. Your lab work today was normal. You were given IV fluids with multivitamins and Ativan to help with your anxiety. If your symptoms should worsen, new symptoms develop or any of the signs and symptoms we discussed should arise please return to the emergency room or call 911 (if needed). 2. Please seek in-patient or out-patient treatment if you desire. We have given you resources for follow up. We do not have any inpatient treatments in [place], the next closest area for inpatient would be [facility] (currently full) [place]. [place] does have an outpatient programs. 3. Please follow-up with your primary care provider as discussed. You can also continue seeing [place] [facility] for their assistance as well. Definitive disposition and diagnosis as appropriate pending reevaluation and review of above. - Related Data Allergies Allergy/AdvReac Type Severity Reaction Status Date / Time No Known Allergies Allergy Verified 04/06/20 14:17 Home Meds: Home Meds atorvaSTATin [Lipitor] 40 mg PO BEDTIME 90 Days #30 tab 04/18/18 [Rx] Glimepiride [Amaryl] 2 mg PO DAILY 07/22/18 [History] metFORMIN HCl [Metformin HCl] 1,000 mg PO DAILY 06/23/19 [History] Albuterol/Ipratropium [DuoNeb 3.0-0.5 MG/3 ML] 3 ml NEB Q6H PRN #60 neb 06/24/19 [Rx] Montelukast Sodium 10 mg PO DAILY 04/06/20 [History] Albuterol [Ventolin HFA] 2 puff INH Q4HR PRN #1 inhaler 04/07/20 [Rx] Fluticasone Propion/Salmeterol [Fluticasone-Salmeterol 250-50] 1 inh IH BID #1 04/07/20 [Rx] Lisinopril/Hydrochlorothiazide [Lisinopril-HCTZ 10-12.5 MG] 10 - 12.5 mg PO DAILY #30 04/07/20 [Rx] amLODIPine Besylate [Amlodipine Besylate] 10 mg PO DAILY #30 tablet 04/07/20 [Rx] predniSONE [Prednisone] 50 mg PO DAILY #3 tablet 04/07/20 [Rx] Past Medical History HEENT History: Reports: Other (See Below) Other HEENT History: ear infection Cardiovascular History: Reports: High Cholesterol, Hypertension Respiratory History: Reports: Asthma, Sleep Apnea Gastrointestinal History: Reports: GERD Genitourinary History: Reports: None 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: 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 Musculoskeletal History: Reports: Other (See Below) Other Musculoskeletal History: ankle fracture - 2013 Neurological History: Reports: TIA Psychiatric History: Reports: None Endocrine/Metabolic History: Reports: Diabetes, Type II Hematologic History: Reports: None Immunologic History: Reports: None Oncologic (Cancer) History: Reports: None Dermatologic History: Reports: None - Infectious Disease History Infectious Disease History: Reports: Chicken Pox, Measles, Mumps - Past Surgical History HEENT Surgical History: Reports: None Cardiovascular Surgical History: Reports: None Respiratory Surgical History: Reports: None GI Surgical History: Reports: None Female Surgical History: Reports: None Endocrine Surgical History: Reports: None Neurological Surgical History: Reports: None Musculoskeletal Surgical History: Reports: Other (See Below) Dermatological Surgical History: Reports: None Social & Family History - Family History Family Medical History: Noncontributory Cardiac: Reports: Hypertension, [place] Respiratory: Reports: Asthma OBGYN: Reports: Musculoskeletal: Reports: Arthritis Neurological: Reports: CVA Endocrine/Metabolic: Reports: Diabetes, type II - Tobacco Use Smoking Status *Q: Current Every Day Smoker Years of Tobacco use: 7 Packs/Tins Daily: 0.3 - Caffeine Use Caffeine Use: Reports: None - Recreational Drug Use Recreational Drug Use: No ED ROS GENERAL - Review of Systems Review Of Systems: Comprehensive ROS is negative, except as noted in HPI. - Physical Exam Exam: See Below (See dictation) Course - Vital Signs Last Recorded V/S: Last Vital Signs Temp 98.0 F 04/28/20 17:47 Pulse 87 04/28/20 17:47 Resp 18 04/28/20 17:47 BP 181/86 H 04/28/20 17:47 Pulse Ox 98 04/28/20 17:47 - Orders/Labs/Meds Labs: Laboratory Tests 04/28/20 04/28/20 Range/Units 18:10 18:10 WBC 7.18 (4.0-11.0) K/uL RBC 3.92 L (4.30-5.90) M/uL Hgb 11.8 L (12.0-16.0) g/dL Hct 35.4 L (36.0-46.0) % MCV 90.3 (80.0-98.0) fL MCH 30.1 (27.0-32.0) pg MCHC 33.3 (31.0-37.0) g/dL RDW Std Deviation 43.0 (28.0-62.0) fl RDW Coeff of Jeannette 13 (11.0-15.0) % Plt Count 185 (150-400) K/uL MPV 11.60 (7.40-12.00) fL Neut % (Auto) 71.2 (48.0-80.0) % Lymph % (Auto) 18.4 (16.0-40.0) % Cache % (Auto) 8.4 (0.0-15.0) % Eos % (Auto) 1.7 (0.0-7.0) % Baso % (Auto) 0.3 (0.0-1.5) % Neut # (Auto) 5.1 (1.4-5.7) K/uL Lymph # (Auto) 1.3 (0.6-2.4) K/uL Cache # (Auto) 0.6 (0.0-0.8) K/uL Eos # (Auto) 0.1 (0.0-0.7) K/uL Baso # (Auto) 0.0 (0.0-0.1) K/uL Sodium 140 (136-145) mmol/L Potassium 3.9 (3.5-5.1) mmol/L Chloride 105 (98-107) mmol/L Carbon Dioxide 27.3 (21.0-32.0) mmol/L BUN 20 H (7.0-18.0) mg/dL Creatinine 1.2 H (0.6-1.0) mg/dL Est Cr Clr Drug Dosing 50.90 mL/min Estimated GFR (MDRD) 56.3 ml/min Glucose 158 H (74-106) mg/dL Calcium 9.4 (8.5-10.1) mg/dL Magnesium 1.7 L (1.8-2.4) mg/dL Total Bilirubin 0.2 (0.2-1.0) mg/dL AST 23 (15-37) IU/L ALT 34 (14-63) IU/L Alkaline Phosphatase 85 (46-116) U/L Total Protein 7.7 (6.4-8.2) g/dL Albumin 3.9 (3.4-5.0) g/dL Globulin 3.8 (2.6-4.0) g/dL Albumin/Globulin Ratio 1.0 (0.9-1.6) Ethyl Alcohol <3 mg/dL Meds: Medications Discontinued Medications Generic Name Dose Route Start Last Admin Trade Name Freq PRN Reason Stop Dose Admin Multivitamins/Minerals 10 ml/ 1,011.2 mls @ 999 mls/hr 08/10/20 17:55 04/28/20 18:28 Thiamine HCl 100 mg/ Folic IV 04/28/20 18:55 999 mls/hr Acid 1 mg/ Sodium Chloride ONETIME ONE Administration Lorazepam 1 mg 04/28/20 17:56 04/28/20 18:06 Ativan IVPUSH 04/28/20 17:57 1 mg ONETIME ONE Administration Departure - Departure Time of Disposition: 19:17 Disposition: Home, Self-Care 01 Clinical Impression: History of alcohol abuse, Encounter for medical screening examination - Discharge Information Instructions: Finding Treatment for Addiction Referrals: Ken Hand MD [Primary Care Provider] - Forms: ED Department Discharge Care Plan Goals: The following information is given to patients seen in the emergency department who are being discharged to home. This information is to outline your options for follow-up care. We provide all patients seen in our emergency department with a follow-up referral. The need for follow-up, as well as the timing and circumstances, are variable de pending upon the specifics of your emergency department visit. If you don't have a primary care physician on staff, we will provide you with a referral. We always advise you to contact your personal physician following an emergency department visit to inform them of the circumstance of the visit and for follow-up with them and/or the need for any referrals to a consulting specialist. The emergency department will also refer you to a specialist when appropriate. This referral assures that you have the opportunity for follow-up care with a specialist. All of these measure are taken in an effort to provide you with optimal care, which includes your follow-up. Under all circumstances we always encourage you to contact your private physician who remains a resource for coordinating your care. When calling for follow-up care, please make the office aware that this follow-up is from your recent emergency room visit. If for any reason you are refused follow-up, please contact the [facility] Emergency Department at and asked to speak to the emergency department charge nurse. [facility] [address] [place] [id number] [address] [place] [address] Thank you for choosing the [facility] emergency department in [place] for your medical needs today. It was a pleasure caring for you. Today you were seen in the emergency department for alcohol abuse. 1. Your lab work today was normal. You were given IV fluids with multivitamins and Ativan to help with your anxiety. If your symptoms should worsen, new symptoms develop or any of the signs and symptoms we discussed should arise please return to the emergency room or call 911 (if needed). 2. Please seek in-patient or out-patient treatment if you desire. We have given you resources for follow up. We do not have any inpatient treatments in [place], the next closest area for inpatient would be [facility] (currently full) [place]. [place] does have an outpatient programs. 3. Please follow-up with your primary care provider as discussed. You can also continue seeing [place] counseling for their assistance as well. Sepsis Event Note (ED) - Evaluation Sepsis Screening Result: No Definite Risk - Focused Exam Vital Signs: Vital Signs Temp Pulse Resp BP Pulse Ox 04/28/20 17:47 98.0 F 87 18 181/86 H 98
[2020-04-28 19:05] LABS: BLOOD UREA NITROGEN,BUN 20 mg/dL (7.0-18.0); CARBON DIOXIDE,CO2 27.3 mmol/L (21.0-32.0); CHLORIDE,CL 105 mmol/L (98-107); GLUCOSE RANDOM 158 mg/dL (74-106); POTASSIUM,K 3.9 mmol/L (3.5-5.1); SODIUM,NA 140 mmol/L (136-145)
[2020-04-28 20:14] VITALS: BP 141/72; PULSE 94
== END 2020-04-28 20:10 | disposition home or self-care (01) ==
LOC: MW.ED 17:34
DX: F10.10 Alcohol abuse, uncomplicated (principal); E11.9 Type 2 diabetes mellitus without complications; J45.909 Unspecified asthma, uncomplicated; I10 Essential (primary) hypertension; E78.00 Pure hypercholesterolemia, unspecified; F17.210 Nicotine dependence, cigarettes, uncomplicated; Z79.899 Other long term (current) drug therapy
CPT/HCPCS: 36415; 71045; 80053; 80307; 83735; 85025; 96365; 96375; 99285; J2060; J3411; J7030; 99283

== ENCOUNTER 2020-10-10 13:19 | Inpatient (IN) | payer MEDICAID, OTHER ==
[2020-10-10] MEDS ORDERED: LORazepam 2 MG/ML SDV IVPUSH ONE ×2 (13:21→15:58)
[2020-10-10] MEDS ORDERED: Sodium Chloride 0.9% 1,000 ML IV ONE (13:21)
[2020-10-10] MEDS ORDERED: Sodium Chloride 0.9% 10 ML Syringe FLUSH PRN (13:22)
[2020-10-10] MEDS ORDERED: Sodium Chloride 0.9% 2.5 ML Syringe FLUSH PRN (13:22)
--- NOTE | 2020-10-10 13:34 | EDM.PDOC ---
ED HPI GENERAL MEDICAL PROBLEM - General Chief Complaint: General Stated Complaint: DETOX Time Seen by Provider: 10/10/20 13:20 Source of Information: Reports: Patient History Limitations: Reports: No Limitations - History of Present Illness INITIAL COMMENTS - FREE TEXT/NARRATIVE: HISTORY AND PHYSICAL: History of present illness: Patient is a 55-year-old female who presents to the emergency room with complaints of alcohol withdrawal symptoms. Patient attended an inpatient alcohol treatment facility approximately 4 months ago but immediately started drinking again after her discharge. She drinks about a half a liter of vodka per day. She states her last alcoholic beverage was last night around 7 PM. Today she was brought in by EMS with her to grandchildren whom she was watching. She feels anxious, tremulous, nauseated and generally unwell. She states she "just wants to feel better". She also has had some mild SOB which she attributes to her asthma. She received Zofran and a neb treatment RECHECKER by EMS. Patient denies any fever, chills, headache, change in vision, syncope or near syncope. Denies any chest pain, back pain or cough. Denies any abdominal pain, nausea, vomiting, diarrhea, constipation or dysuria. Has not noted any blood in urine or stool. Patient has been eating and drinking appropriately. Review of systems: As per history of present illness and below otherwise all systems reviewed and negative. Past medical history: As per history of present illness and as reviewed below otherwise noncontributory. Surgical history: As per history of present illness and as reviewed below otherwise noncontributory. Social history: See social history for further information Family history: As per history of present illness and as reviewed below otherwise noncontributory. Physical exam: General: Well developed and well nourished 55 year old black female. Alert and orientated x 3. Anxious appearing and obviously tremulous. Nontoxic in appe arance and in no acute distress. Vital signs are stable and have been reviewed by me. Nursing notes were reviewed. HEENT: Atraumatic, normocephalic, pupils equal and reactive bilaterally, negative for conjunctival pallor or scleral icterus, mucous membranes moist, TMs normal bilaterally, throat clear, neck supple, nontender, trachea midline. No drooling or trismus noted. No meningeal signs. No hot potato voice noted. Lungs: Clear to auscultation bilaterally. No wheezes, rales, or rhonchi. Chest nontender. Normal work of breathing, no accessory muscles used. Heart: S1S2, regular rate and rhythm without overt murmur, gallops, or rubs. No JVD. No peripheral edema Abdomen: Soft, nondistended, nontender. Normoactive bowel sounds. Negative for masses or costovertebral tenderness. Pelvis: Stable nontender. Genitourinary/Rectal: This was done with consent and a child psychiatrist at the bedside. Patient has good rectal tone. Although there was only a small amount that I was able to obtain for the Hemoccult stool, this was negative. No internal hemorrhoids are noted. Skin: Intact, warm, dry. No lesions or rashes noted. Hematologic: No petechiae or purpra. Mucosa appropriate color and normal nail bed color and refill. Extremities: Atraumatic, moves all extremities per self without difficulty or deficits, negative for cords or calf pain. Neurovascular unremarkable. Neuro: Awake, alert, oriented. Cranial nerves II through XII unremarkable. Cerebellum unremarkable. Motor and sensory unremarkable throughout. Exam nonfocal. Psychiatric: Mood and affect are appropriate. Normal thought process. Answering questions appropriately. Notes: *This patient was seen and evaluated during the 2019 SARS-CoV-2 novel coronavirus pandemic period. Community viral transmission is ongoing at time of this encounter and the emergency department is operating under pandemic response procedures. CIWA: 14. Chest x-ray shows no acute findings. Lab work is unremarkable. She is unable to give us a urine sample. I have talked with the patient about today's findings, in addition to providing specific details for plan of care. Reassessment at the time of disposition demonstrates that the patient is in no acute distress. CIWA: [address] Shearer/Heriberto was consulted on this case and agreeable to keeping her for further care and management. Will place her on telemetry Diagnostics: CBC, CMP, EtOH, urine, urine drug screen, chest x-ray Therapeutics: IV fluid, Ativan, banana bag Impression: Alcohol withdrawal Plan: Inpatient admission Definitive disposition and diagnosis as appropriate pending reevaluation and review of above. - Related Data Allergies Allergy/AdvReac Type Severity Reaction Status Date / Time No Known Allergies Allergy Verified 10/10/20 13:32 Home Meds: Home Meds atorvaSTATin [Lipitor] 40 mg PO BEDTIME 90 Days #30 tab 04/18/18 [Rx] Glimepiride [Amaryl] 2 mg PO DAILY 07/22/18 [History] metFORMIN HCl [Metformin HCl] 1,000 mg PO DAILY 06/23/19 [History] Albuterol/Ipratropium [DuoNeb 3.0-0.5 MG/3 ML] 3 ml NEB Q6H PRN #60 neb 06/24/19 [Rx] Montelukast Sodium 10 mg PO DAILY 04/06/20 [History] Albuterol [Ventolin HFA] 2 puff INH Q4HR PRN #1 inhaler 04/07/20 [Rx] Fluticasone Propion/Salmeterol [Fluticasone-Salmeterol 250-50] 1 inh IH BID #1 04/07/20 [Rx] Lisinopril/Hydrochlorothiazide [Lisinopril-HCTZ 10-12.5 MG] 10 - 12.5 mg PO DAILY #30 04/07/20 [Rx] amLODIPine Besylate [Amlodipine Besylate] 10 mg PO DAILY #30 tablet 04/07/20 [Rx] predniSONE [Prednisone] 50 mg PO DAILY #3 tablet 04/07/20 [Rx] Past Medical History HEENT History: Reports: Other (See Below) Other HEENT History: ear infection Cardiovascular History: Reports: High Cholesterol, Hypertension Respiratory History: Reports: Asthma, Sleep Apnea Gastrointestinal History: Reports: GERD Genitourinary History: Reports: None 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: 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 Musculoskeletal History: Reports: Other (See Below) Other Musculoskeletal History: ankle fracture - 2013 Neurological History: Reports: TIA Psychiatric History: Reports: None Endocrine/Metabolic History: Reports: Diabetes, Type II Hematologic History: Reports: None Immunologic History: Reports: None Oncologic (Cancer) History: Reports: None Dermatologic History: Reports: None - Infectious Disease History Infectious Disease History: Reports: Chicken Pox, Measles, Mumps - Past Surgical History HEENT Surgical History: Reports: None Cardiovascular Surgical History: Reports: None Respiratory Surgical History: Reports: None GI Surgical History: Reports: None Female Surgical History: Reports: None Endocrine Surgical History: Reports: None Neurological Surgical History: Reports: None Musculoskeletal Surgical History: Reports: Other (See Below) Dermatological Surgical History: Reports: None Social & Family History - Family History Family Medical History: No Pertinent Family History Cardiac: Reports: Hypertension, [place] Respiratory: Reports: Asthma OBGYN: Reports: Musculoskeletal: Reports: Arthritis Neurological: Reports: CVA Endocrine/Metabolic: Reports: Diabetes, type II - Caffeine Use Caffeine Use: Reports: None ED ROS GENERAL - Review of Systems Review Of Systems: Comprehensive ROS is negative, except as noted in HPI. ED EXAM, GENERAL - Physical Exam Exam: See Below (See dictation) Course - Vital Signs Last Recorded V/S: Last Vital Signs Temp 97.2 F 10/10/20 13:29 Pulse 84 10/10/20 13:51 Resp 18 10/10/20 13:29 BP 134/70 10/10/20 13:51 Pulse Ox 95 10/10/20 13:51 - Orders/Labs/Meds Orders: Active Orders 24 hr Category Date Time Status Admission Status [Patient Status] [ADT] Stat ADT 10/10/20 16:12 Ordered Fecal Occult Blood Collection [RC] ASDIRECTED Care 10/10/20 13:22 Active DRUG SCREEN, URINE [URCHEM] Stat Lab 10/10/20 16:11 Ordered HCG QUALITATIVE,URINE [URCHEM] Stat Lab 10/10/20 13:22 Ordered UA RFX LETICIA AND CULT IF INDIC [URIN] Stat Lab 10/10/20 13:22 Ordered Sodium Chloride 0.9% [Saline Flush] Med 10/10/20 13:22 Active 10 ml FLUSH ASDIRECTED PRN Sodium Chloride 0.9% [Saline Flush] Med 10/10/20 13:22 Active 2.5 ml FLUSH ASDIRECTED PRN Saline Lock Insert [OM.PC] Stat Oth 10/10/20 13:22 Ordered Medication Orders Sodium Chloride (Saline Flush) 10 ml FLUSH ASDIRECTED PRN PRN Reason: Keep Vein Open Last Admin: 10/10/20 13:48 Dose: 10 ml Documented by: IDANIA Sodium Chloride (Saline Flush) 2.5 ml FLUSH ASDIRECTED PRN PRN Reason: Keep Vein Open Labs: Laboratory Tests 10/10/20 10/10/20 10/10/20 Range/Units 13:56 15:20 15:20 WBC 6.94 (4.0-11.0) K/uL RBC 4.38 (4.30-5.90) M/uL Hgb 12.6 (12.0-16.0) g/dL Hct 38.9 (36.0-46.0) % MCV 88.8 (80.0-98.0) fL MCH 28.8 (27.0-32.0) pg MCHC 32.4 (31.0-37.0) g/dL RDW Std Deviation 44.4 (28.0-62.0) fl RDW Coeff of Jeannette 14 (11.0-15.0) % Plt Count 226 (150-400) K/uL MPV 10.90 (7.40-12.00) fL Neut % (Auto) 67.7 (48.0-80.0) % Lymph % (Auto) 22.5 (16.0-40.0) % Hughes % (Auto) 8.5 (0.0-15.0) % Eos % (Auto) 1.2 (0.0-7.0) % Baso % (Auto) 0.1 (0.0-1.5) % Neut # (Auto) 4.7 (1.4-5.7) K/uL Lymph # (Auto) 1.6 (0.6-2.4) K/uL Hughes # (Auto) 0.6 (0.0-0.8) K/uL Eos # (Auto) 0.1 (0.0-0.7) K/uL Baso # (Auto) 0.0 (0.0-0.1) K/uL Nucleated RBC % 0.0 /100WBC Nucleated RBCs # 0 K/uL Sodium 137 (136-145) mmol/L Potassium 3.3 L (3.5-5.1) mmol/L Chloride 98 (98-107) mmol/L Carbon Dioxide 26.4 (21.0-32.0) mmol/L BUN 9 (7.0-18.0) mg/dL Creatinine 1.4 H (0.6-1.0) mg/dL Est Cr Clr Drug Dosing 43.11 mL/min Estimated GFR (MDRD) 38.8 ml/min Glucose 134 H (74-106) mg/dL Calcium 9.2 (8.5-10.1) mg/dL Total Bilirubin 0.8 (0.2-1.0) mg/dL AST 24 (15-37) IU/L ALT 24 (14-63) IU/L Alkaline Phosphatase 79 (46-116) U/L Total Protein 7.5 (6.4-8.2) g/dL Albumin 3.9 (3.4-5.0) g/dL Globulin 3.6 (2.6-4.0) g/dL Albumin/Globulin Ratio 1.1 (0.9-1.6) Lipase 67 L (73-393) U/L Ethyl Alcohol mg/dL SARS-CoV-2 RNA ([place]) NEGATIVE (NEGATIVE) 10/10/20 Range/Units 15:20 WBC (4.0-11.0) K/uL RBC (4.30-5.90) M/uL Hgb (12.0-16.0) g/dL Hct (36.0-46.0) % MCV (80.0-98.0) fL MCH (27.0-32.0) pg MCHC (31.0-37.0) g/dL RDW Std Deviation (28.0-62.0) fl RDW Coeff of Jeannette (11.0-15.0) % Plt Count (150-400) K/uL MPV (7.40-12.00) fL Neut % (Auto) (48.0-80.0) % Lymph % (Auto) (16.0-40.0) % Hughes % (Auto) (0.0-15.0) % Eos % (Auto) (0.0-7.0) % Baso % (Auto) (0.0-1.5) % Neut # (Auto) (1.4-5.7) K/uL Lymph # (Auto) (0.6-2.4) K/uL Hughes # (Auto) (0.0-0.8) K/uL Eos # (Auto) (0.0-0.7) K/uL Baso # (Auto) (0.0-0.1) K/uL Nucleated RBC % /100WBC Nucleated RBCs # K/uL Sodium (136-145) mmol/L Potassium (3.5-5.1) mmol/L Chloride (98-107) mmol/L Carbon Dioxide (21.0-32.0) mmol/L BUN (7.0-18.0) mg/dL Creatinine (0.6-1.0) mg/dL Est Cr Clr Drug Dosing mL/min Estimated GFR (MDRD) ml/min Glucose (74-106) mg/dL Calcium (8.5-10.1) mg/dL Total Bilirubin (0.2-1.0) mg/dL AST (15-37) IU/L ALT (14-63) IU/L Alkaline Phosphatase (46-116) U/L Total Protein (6.4-8.2) g/dL Albumin (3.4-5.0) g/dL Globulin (2.6-4.0) g/dL Albumin/Globulin Ratio (0.9-1.6) Lipase (73-393) U/L Ethyl Alcohol <3 mg/dL SARS-CoV-2 RNA ([place]) (NEGATIVE) Meds: Medications Generic Name Dose Route Start Last Admin Trade Name Freq PRN Reason Stop Dose Admin Sodium Chloride 10 ml 10/10/20 13:22 10/10/20 13:48 Saline Flush FLUSH 10 ml ASDIRECTED PRN Administration Keep Vein Open Sodium Chloride 2.5 ml 10/10/20 13:22 Saline Flush FLUSH ASDIRECTED PRN Keep Vein Open Discontinued Medications Generic Name Dose Route Start Last Admin Trade Name Freq PRN Reason Stop Dose Admin Sodium Chloride 1,000 mls @ 999 mls/hr 10/10/20 13:21 10/10/20 13:48 Normal Saline IV 10/10/20 14:21 999 mls/hr STAT ONE Administration Lorazepam 1 mg 10/10/20 13:21 10/10/20 13:48 Ativan IVPUSH 10/10/20 13:22 1 mg ONETIME ONE Administration Lorazepam 1 mg 10/10/20 15:58 Ativan IVPUSH 10/10/20 15:59 ONETIME ONE Departure - Departure Time of Disposition: 16:17 Disposition: Admitted As Inpatient 64 Clinical Impression: Alcohol withdrawal Qualifiers: Complication of substance-induced condition: uncomplicated Qualified Code(s): F10.230 - Alcohol dependence with withdrawal, uncomplicated - Discharge Information Forms: ED Department Discharge Sepsis Event Note (ED) - Focused Exam Vital Signs: Vital Signs Temp Pulse Resp BP Pulse Ox 10/10/20 13:51 84 134/70 95 10/10/20 13:29 97.2 F 89 18 153/77 H 100 - My Orders Last 24 Hours: My Active Orders 10/10/20 13:22 Fecal Occult Blood Collection [RC] ASDIRECTED HCG QUALITATIVE,URINE [URCHEM] Stat UA RFX LETICIA AND CULT IF INDIC [URIN] Stat Sodium Chloride 0.9% [Saline Flush] 10 ml FLUSH ASDIRECTED PRN Sodium Chloride 0.9% [Saline Flush] 2.5 ml FLUSH ASDIRECTED PRN Saline Lock Insert [OM.PC] Stat 10/10/20 16:11 DRUG SCREEN, URINE [URCHEM] Stat 10/10/20 16:12 Admission Status [Patient Status] [ADT] Stat - Assessment/Plan Last 24 Hours: My Active Orders 10/10/20 13:22 Fecal Occult Blood Collection [RC] ASDIRECTED HCG QUALITATIVE,URINE [URCHEM] Stat UA RFX LETICIA AND CULT IF INDIC [URIN] Stat Sodium Chloride 0.9% [Saline Flush] 10 ml FLUSH ASDIRECTED PRN Sodium Chloride 0.9% [Saline Flush] 2.5 ml FLUSH ASDIRECTED PRN Saline Lock Insert [OM.PC] Stat 10/10/20 16:11 DRUG SCREEN, URINE [URCHEM] Stat 10/10/20 16:12 Admission Status [Patient Status] [ADT] Stat
--- NOTE | 2020-10-10 14:09 | CR ---
INDICATION: Chest pain and shortness of breath TECHNIQUE: Chest 1 views COMPARISON: 04/06/2020 FINDINGS: Cardiovascular and mediastinum: Heart size and vasculature are normal in caliber and appearance. Lungs and pleural spaces: Lungs are clear. No sign of infiltrate or mass. No sign of pleural effusion. No pneumothorax. Bones and soft tissues: No significant findings. IMPRESSION: Negative chest. No finding to explain chest pain or shortness of breath. Dictated by Wu Quintero MD @ Oct 10 2020 2:05PM Signed by Dr. Wu Quintero @ Oct 10 2020 2:07PM
[2020-10-10 15:57] LABS: CARBON DIOXIDE,CO2 26.4 mmol/L (21.0-32.0); POTASSIUM,K 3.3 mmol/L (3.5-5.1)
[2020-10-10] MEDS ORDERED: MVI, Adult with Vitamin K 10 ML, Thiamine 100 MG, Folic Acid 1 MG in Sodium Chloride 0.... IV ONE ×4 (16:17)
[2020-10-10] MEDS ORDERED: Ondansetron 4 MG Tab.DIS PO PRN (17:13)
--- NOTE | 2020-10-10 17:13 | PCM.HP.2 ---
<Edvin Ghotra - Last Filed: 10/10/20 18:34> H&P History of Present Illness - General Date of Service: 10/10/20 Admit Problem/Dx: Admission Diagnosis/Problem Admission Diagnosis/Problem Alcohol withdrawal syndrome Source of Information: Patient - History of Present Illness Initial Comments - Free Text/Narative: Patient is a 55-year-old female with significant past medical history of severe alcohol use disorder requiring inpatient treatment 4 months prior, type 2 diabetes, asthma, Stroke; presenting with acute alcohol withdrawal symptoms including anxiety, tremulousness nausea and general malaise. Patient endorsed to ER provider drinking since discharge from inpatient alcohol treatment facility 4 months prior. Patient was brought into the ED via EMS. ED course: Chest x-ray: No acute cardiopulmonary pathology noted. Alcohol level less than 3. Covid negative. Lipase 67. CIWA score 8 Patient was given 1 banana bag and given Ativan per CIWA protocol. Bedside: Bedside endorses drinking a "1/5th" of vodka daily and smoking 1/3 PPD. Endorses last drink was last night around dinner. Denies hx. of seizure and or hallucinations. Does mentions to me having had a stroke 8-mos prior; unsure of etiology, but mentions requiring extensive rehab including need to relearn speech and walking. pt otherwise does c.o mild abdominal discomfort at this time. - Related Data Allergies/Adverse Reactions: Allergies Allergy/AdvReac Type Severity Reaction Status Date / Time crab Allergy Hives Verified 10/10/20 20:56 Home Medications: Home Meds atorvaSTATin [Lipitor] 40 mg PO BEDTIME 90 Days #30 tab 04/18/18 [Rx] Glimepiride [Amaryl] 2 mg PO DAILY 07/22/18 [History] metFORMIN HCl [Metformin HCl] 1,000 mg PO DAILY 06/23/19 [History] Albuterol/Ipratropium [DuoNeb 3.0-0.5 MG/3 ML] 3 ml NEB Q6H PRN #60 neb 06/24/19 [Rx] Montelukast Sodium 10 mg PO DAILY 04/06/20 [History] Albuterol [Ventolin HFA] 2 puff INH Q4HR PRN #1 inhaler 04/07/20 [Rx] Fluticasone Propion/Salmeterol [Fluticasone-Salmeterol 250-50] 1 inh IH BID #1 04/07/20 [Rx] Lisinopril/Hydrochlorothiazide [Lisinopril-HCTZ 10-12.5 MG] 10 - 12.5 mg PO DAILY #30 04/07/20 [Rx] amLODIPine Besylate [Amlodipine Besylate] 10 mg PO DAILY #30 tablet 04/07/20 [Rx] predniSONE [Prednisone] 50 mg PO DAILY #3 tablet 04/07/20 [Rx] Past Medical History HEENT History: Reports: Other (See Below) Other HEENT History: ear infection Cardiovascular History: Reports: High Cholesterol, Hypertension Respiratory History: Reports: Asthma, Sleep Apnea Gastrointestinal History: Reports: GERD Genitourinary History: Reports: None 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 OB/BYN History: 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 Musculoskeletal History: Reports: Other (See Below) Other Musculoskeletal History: ankle fracture - 2013 Neurological History: Reports: TIA Psychiatric History: Reports: None Endocrine/Metabolic History: Reports: Diabetes, Type II Hematologic History: Reports: None Immunologic History: Reports: None Oncologic (Cancer) History: Reports: None Dermatologic History: Reports: None - Infectious Disease History Infectious Disease History: Reports: Chicken Pox, Measles, Mumps - Past Surgical History HEENT Surgical History: Reports: None Cardiovascular Surgical History: Reports: None Respiratory Surgical History: Reports: None GI Surgical History: Reports: None Female Surgical History: Reports: None Endocrine Surgical History: Reports: None Neurological Surgical History: Reports: None Musculoskeletal Surgical History: Reports: Other (See Below) Dermatological Surgical History: Reports: None Social & Family History - Family History Family Medical History: No Pertinent Family History Cardiac: Reports: Hypertension, [place] Respiratory: Reports: Asthma OBGYN: Reports: Musculoskeletal: Reports: Arthritis Neurological: Reports: CVA Endocrine/Metabolic: Reports: Diabetes, type II - Tobacco Use Tobacco Use Status *Q: Current Every Day Tobacco User Years of Tobacco use: 15 Packs/Tins Daily: 0.3 - Caffeine Use Caffeine Use: Reports: None - Alcohol Use Days Per Week of Alcohol Use: 7 Number of Drinks Per Day: 15 Total Drinks Per Week: 105 - Recreational Drug Use Recreational Drug Use: No H&P Review of Systems - Review of Systems: Review Of Systems: See Below General: Reports: No Symptoms HEENT: Reports: No Symptoms Pulmonary: Reports: Cough. Denies: Shortness of Breath, Wheezing, Sputum Cardiovascular: Reports: No Symptoms Gastrointestinal: Reports: Abdominal Pain, Nausea. Denies: Decreased Appetite, Vomiting Genitourinary: Reports: No Symptoms Musculoskeletal: Reports: No Symptoms, Joint Swelling Psychiatric: Reports: Anxiety. Denies: Cravings, Hallucinations Neurological: Reports: Headache. Denies: Confusion, Dizziness Exam - Exam Exam: See Below - Vital Signs Vital Signs: Last Vital Signs Temp 97.2 F 10/10/20 13:29 Pulse 84 10/10/20 13:51 Resp 18 10/10/20 13:29 BP 134/70 10/10/20 13:51 Pulse Ox 95 10/10/20 13:51 Weight: 114.305 kg - Exam Quality Assessment: No: Supplemental Oxygen General: Alert, Oriented HEENT: EOMI, Mucosa Moist & [place] Neck: Supple, Trachea Midline Lungs: Normal Respiratory Effort, Other (+expiratory wheeze ) Cardiovascular: Regular Rate, Regular Rhythm GI/Abdominal Exam: Soft, Non-Tender Extremities: No Pedal Edema Neurological: Normal Gait, Normal Speech Neuro Extensive - Mental Status: Alert, Oriented x3, Normal Mood/Affect Neuro Extensive - Motor, Sensory, Reflexes: Normal Gait Psychiatric: Alert - Patient Data Lab Results Last 24 hrs: Laboratory Results - last 24 hr 10/10/20 10/10/20 10/10/20 Range/Units 13:56 15:20 15:20 WBC 6.94 (4.0-11.0) K/uL RBC 4.38 (4.30-5.90) M/uL Hgb 12.6 (12.0-16.0) g/dL Hct 38.9 (36.0-46.0) % MCV 88.8 (80.0-98.0) fL MCH 28.8 (27.0-32.0) pg MCHC 32.4 (31.0-37.0) g/dL RDW Std Deviation 44.4 (28.0-62.0) fl RDW Coeff of Jeannette 14 (11.0-15.0) % Plt Count 226 (150-400) K/uL MPV 10.90 (7.40-12.00) fL Neut % (Auto) 67.7 (48.0-80.0) % Lymph % (Auto) 22.5 (16.0-40.0) % [place] % (Auto) 8.5 (0.0-15.0) % Eos % (Auto) 1.2 (0.0-7.0) % Baso % (Auto) 0.1 (0.0-1.5) % Neut # (Auto) 4.7 (1.4-5.7) K/uL Lymph # (Auto) 1.6 (0.6-2.4) K/uL [place] # (Auto) 0.6 (0.0-0.8) K/uL Eos # (Auto) 0.1 (0.0-0.7) K/uL Baso # (Auto) 0.0 (0.0-0.1) K/uL Nucleated RBC % 0.0 /100WBC Nucleated RBCs # 0 K/uL Sodium 137 (136-145) mmol/L Potassium 3.3 L (3.5-5.1) mmol/L Chloride 98 (98-107) mmol/L Carbon Dioxide 26.4 (21.0-32.0) mmol/L BUN 9 (7.0-18.0) mg/dL Creatinine 1.4 H (0.6-1.0) mg/dL Est Cr Clr Drug Dosing 43.11 mL/min Estimated GFR (MDRD) 38.8 ml/min Glucose 134 H (74-106) mg/dL Calcium 9.2 (8.5-10.1) mg/dL Phosphorus (2.6-4.7) mg/dL Magnesium (1.8-2.4) mg/dL Total Bilirubin 0.8 (0.2-1.0) mg/dL AST 24 (15-37) IU/L ALT 24 (14-63) IU/L Alkaline Phosphatase 79 (46-116) U/L Total Protein 7.5 (6.4-8.2) g/dL Albumin 3.9 (3.4-5.0) g/dL Globulin 3.6 (2.6-4.0) g/dL Albumin/Globulin Ratio 1.1 (0.9-1.6) Lipase 67 L (73-393) U/L Ethyl Alcohol mg/dL SARS-CoV-2 RNA ([place]) NEGATIVE (NEGATIVE) 10/10/20 10/10/20 Range/Units 15:20 15:20 WBC (4.0-11.0) K/uL RBC (4.30-5.90) M/uL Hgb (12.0-16.0) g/dL Hct (36.0-46.0) % MCV (80.0-98.0) fL MCH (27.0-32.0) pg MCHC (31.0-37.0) g/dL RDW Std Deviation (28.0-62.0) fl RDW Coeff of Jeannette (11.0-15.0) % Plt Count (150-400) K/uL MPV (7.40-12.00) fL Neut % (Auto) (48.0-80.0) % Lymph % (Auto) (16.0-40.0) % [place] % (Auto) (0.0-15.0) % Eos % (Auto) (0.0-7.0) % Baso % (Auto) (0.0-1.5) % Neut # (Auto) (1.4-5.7) K/uL Lymph # (Auto) (0.6-2.4) K/uL [place] # (Auto) (0.0-0.8) K/uL Eos # (Auto) (0.0-0.7) K/uL Baso # (Auto) (0.0-0.1) K/uL Nucleated RBC % /100WBC Nucleated RBCs # K/uL Sodium (136-145) mmol/L Potassium (3.5-5.1) mmol/L Chloride (98-107) mmol/L Carbon Dioxide (21.0-32.0) mmol/L BUN (7.0-18.0) mg/dL Creatinine (0.6-1.0) mg/dL Est Cr Clr Drug Dosing mL/min Estimated GFR (MDRD) ml/min Glucose (74-106) mg/dL Calcium (8.5-10.1) mg/dL Phosphorus 2.6 (2.6-4.7) mg/dL Magnesium 1.9 (1.8-2.4) mg/dL Total Bilirubin (0.2-1.0) mg/dL AST (15-37) IU/L ALT (14-63) IU/L Alkaline Phosphatase (46-116) U/L Total Protein (6.4-8.2) g/dL Albumin (3.4-5.0) g/dL Globulin (2.6-4.0) g/dL Albumin/Globulin Ratio (0.9-1.6) Lipase (73-393) U/L Ethyl Alcohol <3 mg/dL SARS-CoV-2 RNA ([place]) (NEGATIVE) Result Diagrams: 10/10/20 15:20 10/10/20 15:20 Sepsis Event Note - Evaluation Sepsis Screening Result: No Definite Risk - Focused Exam Vital Signs: Vital Signs Temp Pulse Resp BP Pulse Ox 10/10/20 13:51 84 134/70 95 10/10/20 13:29 97.2 F 89 18 153/77 H 100 - Problem List (1) Alcohol withdrawal SNOMED Code(s): 106708510 ICD Code: F10.239 - ALCOHOL DEPENDENCE WITH WITHDRAWAL, UNSPECIFIED Status: Acute Current Visit: No Qualifiers: Complication of substance-induced condition: uncomplicated Qualified Code(s): F10.230 - Alcohol dependence with withdrawal, uncomplicated (2) Asthma SNOMED Code(s): 514821305 ICD Code: J45.909 - UNSPECIFIED ASTHMA, UNCOMPLICATED Status: Acute P riority: Medium Current Visit: No Qualifiers: Asthma severity: mild Asthma persistence: intermittent Asthma complication type: uncomplicated Qualified Code(s): J45.20 - Mild intermittent asthma, uncomplicated Problem List Initiated/Reviewed/Updated: Yes Orders Last 24hrs: Active Orders 24 hr Category Date Time Status Admission Status [Patient Status] [ADT] Stat ADT 10/10/20 16:12 Active Fecal Occult Blood Collection [RC] ASDIRECTED Care 10/10/20 13:22 Active DRUG SCREEN, URINE [URCHEM] Stat Lab 10/10/20 16:11 Ordered HCG QUALITATIVE,URINE [URCHEM] Stat Lab 10/10/20 13:22 Ordered UA RFX LETICIA AND CULT IF INDIC [URIN] Stat Lab 10/10/20 13:22 Ordered MVI, Adult with Vitamin K [Infuvite Adult] 10 ml Med 10/10/20 16:17 Active Thiamine [Vitamin B-1] 100 mg Folic Acid 1 mg Sodium Chloride 0.9% [Normal Saline] 1,000 ml IV ONETIME Sodium Chloride 0.9% [Saline Flush] Med 10/10/20 13:22 Active 10 ml FLUSH ASDIRECTED PRN Sodium Chloride 0.9% [Saline Flush] Med 10/10/20 13:22 Active 2.5 ml FLUSH ASDIRECTED PRN Saline Lock Insert [OM.PC] Stat Oth 10/10/20 13:22 Ordered Medication Orders Multivitamins/Minerals 10 ml/Thiamine HCl 100 mg/ Folic Acid 1 mg/ Sodium Chloride 1,011.2 mls @ 125 mls/hr IV ONETIME ONE Stop: 10/11/20 00:22 Sodium Chloride (Saline Flush) 10 ml FLUSH ASDIRECTED PRN PRN Reason: Keep Vein Open Last Admin: 10/10/20 13:48 Dose: 10 ml Documented by: IDANIA Sodium Chloride (Saline Flush) 2.5 ml FLUSH ASDIRECTED PRN PRN Reason: Keep Vein Open Assessment/Plan Comment:: Assessment: 1. Acute alcohol withdrawal 2. Significant past medical history of alcohol use disorder 3. Hypokalemia 4. ALMAS 5. Past medical history: Asthma, type 2 diabetes, medical noncompliance, significant alcohol abuse. Tobacco abuse, stroke Plan Admit inpatient. Full code. I's and O's per routine. vitals per routine. Up with assistance. Telemetry 1. Acute alcohol withdrawal: Continue with CIWA/Ativan protocol. Daily thiamine+folate. We will check a magnesium and phosphorus now and daily. Replete electrolytes as needed. Mentions significant PMH stroke requiring rehab; currently on daily ASA; will require records from [facility] as patient is a poor historian regarding this event. Endorses red blood per rectum; stool occult ordered. Abdominal pain: Hgb stable; pantoprazole 40 mg daily for now. 2. Type 2 diabetes; sliding scale insulin + 3 times daily Accu-Cheks with meals 3. hx of CVA: continue ASA. No acute defecits noted. Gait stable and normal. 4. Tobacco abuse: 21 mcg nicotine patch daily <Pablito Shearer - Last Filed: 10/11/20 16:45> H&P History of Present Illness - General Admit Problem/Dx: Admission Diagnosis/Problem Admission Diagnosis/Problem Alcohol withdrawal syndrome Exam - Vital Signs Vital Signs: Last Vital Signs Temp 37.2 C 10/11/20 16:00 Pulse 88 10/11/20 16:00 Resp 18 10/11/20 16:00 BP 110/55 L 10/11/20 16:00 Pulse Ox 98 10/11/20 16:00 - Patient Data Lab Results Last 24 hrs: Laboratory Results - last 24 hr 10/11/20 10/11/20 10/11/20 Range/Units 05:45 05:45 05:45 WBC (4.0-11.0) K/uL RBC (4.30-5.90) M/uL Hgb (12.0-16.0) g/dL Hct (36.0-46.0) % MCV (80.0-98.0) fL MCH (27.0-32.0) pg MCHC (31.0-37.0) g/dL RDW Std Deviation (28.0-62.0) fl RDW Coeff of Jeannette (11.0-15.0) % Plt Count (150-400) K/uL MPV (7.40-12.00) fL Neut % (Auto) (48.0-80.0) % Lymph % (Auto) (16.0-40.0) % [place] % (Auto) (0.0-15.0) % Eos % (Auto) (0.0-7.0) % Baso % (Auto) (0.0-1.5) % Neut # (Auto) (1.4-5.7) K/uL Lymph # (Auto) (0.6-2.4) K/uL [place] # (Auto) (0.0-0.8) K/uL Eos # (Auto) (0.0-0.7) K/uL Baso # (Auto) (0.0-0.1) K/uL Nucleated RBC % /100WBC Nucleated RBCs # K/uL Sodium (136-145) mmol/L Potassium (3.5-5.1) mmol/L Chloride (98-107) mmol/L Carbon Dioxide (21.0-32.0) mmol/L BUN (7.0-18.0) mg/dL Creatinine (0.6-1.0) mg/dL Est Cr Clr Drug Dosing mL/min Estimated GFR (MDRD) ml/min Glucose (74-106) mg/dL POC Glucose (60-110) mg/dL Calcium (8.5-10.1) mg/dL Total Bilirubin (0.2-1.0) mg/dL AST (15-37) IU/L ALT (14-63) IU/L Alkaline Phosphatase (46-116) U/L Total Protein (6.4-8.2) g/dL Albumin (3.4-5.0) g/dL Globulin (2.6-4.0) g/dL Albumin/Globulin Ratio (0.9-1.6) TSH 3rd Generation (0.36-3.74) uIU/mL Urine Color YELLOW Urine Appearance CLEAR Urine pH 5.5 (5.0-8.0) Ur Specific [place] 1.015 (1.001-1.035) Urine Protein NEGATIVE (NEGATIVE) mg/dL Urine Glucose (UA) NEGATIVE (NEGATIVE) mg/dL Urine Ketones NEGATIVE (NEGATIVE) mg/dL Urine Occult Blood NEGATIVE (NEGATIVE) Urine Nitrite NEGATIVE (NEGATIVE) Urine Bilirubin NEGATIVE (NEGATIVE) Urine Urobilinogen 0.2 (<2.0) EU/dL Ur Leukocyte Esterase TRACE H (NEGATIVE) Urine RBC 0-1 (0-2/HPF) Urine WBC 0-3 (0-5/HPF) Ur Epithelial Cells RARE (NONE-FEW) Urine Bacteria FEW (NEGATIVE) Urine HCG, Qual NEGATIVE (NEGATIVE) Urine Opiates Screen NEGATIVE (NEGATIVE) Ur Oxycodone Screen NEGATIVE (NEGATIVE) Urine Methadone Screen NEGATIVE (NEGATIVE) Ur Barbiturates Screen NEGATIVE (NEGATIVE) Ur Phencyclidine Scrn NEGATIVE (NEGATIVE) Ur Amphetamine Screen NEGATIVE (NEGATIVE) U Methamphetamines Scrn NEGATIVE (NEGATIVE) U Benzodiazepines Scrn POSITIVE (NEGATIVE) U Cocaine Metab Screen NEGATIVE (NEGATIVE) U Marijuana (THC) Screen NEGATIVE (NEGATIVE) 10/11/20 10/11/20 10/11/20 Range/Units 05:55 10:42 10:42 WBC 4.60 (4.0-11.0) K/uL RBC 3.89 L (4.30-5.90) M/uL Hgb 11.2 L (12.0-16.0) g/dL Hct 35.3 L (36.0-46.0) % MCV 90.7 (80.0-98.0) fL MCH 28.8 (27.0-32.0) pg MCHC 31.7 (31.0-37.0) g/dL RDW Std Deviation 45.6 (28.0-62.0) fl RDW Coeff of Jeannette 14 (11.0-15.0) % Plt Count 204 (150-400) K/uL MPV 10.30 (7.40-12.00) fL Neut % (Auto) 49.0 (48.0-80.0) % Lymph % (Auto) 36.5 (16.0-40.0) % [place] % (Auto) 10.4 (0.0-15.0) % Eos % (Auto) 3.9 (0.0-7.0) % Baso % (Auto) 0.2 (0.0-1.5) % Neut # (Auto) 2.3 (1.4-5.7) K/uL Lymph # (Auto) 1.7 (0.6-2.4) K/uL [place] # (Auto) 0.5 (0.0-0.8) K/uL Eos # (Auto) 0.2 (0.0-0.7) K/uL Baso # (Auto) 0.0 (0.0-0.1) K/uL Nucleated RBC % 0.0 /100WBC Nucleated RBCs # 0 K/uL Sodium (136-145) mmol/L Potassium (3.5-5.1) mmol/L Chloride (98-107) mmol/L Carbon Dioxide (21.0-32.0) mmol/L BUN (7.0-18.0) mg/dL Creatinine (0.6-1.0) mg/dL Est Cr Clr Drug Dosing mL/min Estimated GFR (MDRD) ml/min Glucose (74-106) mg/dL POC Glucose 117 H (60-110) mg/dL Calcium (8.5-10.1) mg/dL Total Bilirubin (0.2-1.0) mg/dL AST (15-37) IU/L ALT (14-63) IU/L Alkaline Phosphatase (46-116) U/L Total Protein (6.4-8.2) g/dL Albumin (3.4-5.0) g/dL Globulin (2.6-4.0) g/dL Albumin/Globulin Ratio (0.9-1.6) TSH 3rd Generation 0.98 (0.36-3.74) uIU/mL Urine Color Urine Appearance Urine pH (5.0-8.0) Ur Specific [place] (1.001-1.035) Urine Protein (NEGATIVE) mg/dL Urine Glucose (UA) (NEGATIVE) mg/dL Urine Ketones (NEGATIVE) mg/dL Urine Occult Blood (NEGATIVE) Urine Nitrite (NEGATIVE) Urine Bilirubin (NEGATIVE) Urine Urobilinogen (<2.0) EU/dL Ur Leukocyte Esterase (NEGATIVE) Urine RBC (0-2/HPF) Urine WBC (0-5/HPF) Ur Epithelial Cells (NONE-FEW) Urine Bacteria (NEGATIVE) Urine HCG, Qual (NEGATIVE) Urine Opiates Screen (NEGATIVE) Ur Oxycodone Screen (NEGATIVE) Urine Methadone Screen (NEGATIVE) Ur Barbiturates Screen (NEGATIVE) Ur Phencyclidine Scrn (NEGATIVE) Ur Amphetamine Screen (NEGATIVE) U Methamphetamines Scrn (NEGATIVE) U Benzodiazepines Scrn (NEGATIVE) U Cocaine Metab Screen (NEGATIVE) U Marijuana (THC) Screen (NEGATIVE) 10/11/20 10/11/20 Range/Units 10:42 11:38 WBC (4.0-11.0) K/uL RBC (4.30-5.90) M/uL Hgb (12.0-16.0) g/dL Hct (36.0-46.0) % MCV (80.0-98.0) fL MCH (27.0-32.0) pg MCHC (31.0-37.0) g/dL RDW Std Deviation (28.0-62.0) fl RDW Coeff of Jeannette (11.0-15.0) % Plt Count (150-400) K/uL MPV (7.40-12.00) fL Neut % (Auto) (48.0-80.0) % Lymph % (Auto) (16.0-40.0) % [place] % (Auto) (0.0-15.0) % Eos % (Auto) (0.0-7.0) % Baso % (Auto) (0.0-1.5) % Neut # (Auto) (1.4-5.7) K/uL Lymph # (Auto) (0.6-2.4) K/uL [place] # (Auto) (0.0-0.8) K/uL Eos # (Auto) (0.0-0.7) K/uL Baso # (Auto) (0.0-0.1) K/uL Nucleated RBC % /100WBC Nucleated RBCs # K/uL Sodium 140 (136-145) mmol/L Potassium 4.1 (3.5-5.1) mmol/L Chloride 106 (98-107) mmol/L Carbon Dioxide 27.8 (21.0-32.0) mmol/L BUN 9 (7.0-18.0) mg/dL Creatinine 1.3 H (0.6-1.0) mg/dL Est Cr Clr Drug Dosing 46.43 mL/min Estimated GFR (MDRD) 51.2 ml/min Glucose 131 H (74-106) mg/dL POC Glucose 126 H (60-110) mg/dL Calcium 8.8 (8.5-10.1) mg/dL Total Bilirubin 0.5 (0.2-1.0) mg/dL AST 18 (15-37) IU/L ALT 21 (14-63) IU/L Alkaline Phosphatase 67 (46-116) U/L Total Protein 6.3 L (6.4-8.2) g/dL Albumin 3.1 L (3.4-5.0) g/dL Globulin 3.2 (2.6-4.0) g/dL Albumin/Globulin Ratio 1.0 (0.9-1.6) TSH 3rd Generation (0.36-3.74) uIU/mL Urine Color Urine Appearance Urine pH (5.0-8.0) Ur Specific [place] (1.001-1.035) Urine Protein (NEGATIVE) mg/dL Urine Glucose (UA) (NEGATIVE) mg/dL Urine Ketones (NEGATIVE) mg/dL Urine Occult Blood (NEGATIVE) Urine Nitrite (NEGATIVE) Urine Bilirubin (NEGATIVE) Urine Urobilinogen (<2.0) EU/dL Ur Leukocyte Esterase (NEGATIVE) Urine RBC (0-2/HPF) Urine WBC (0-5/HPF) Ur Epithelial Cells (NONE-FEW) Urine Bacteria (NEGATIVE) Urine HCG, Qual (NEGATIVE) Urine Opiates Screen (NEGATIVE) Ur Oxycodone Screen (NEGATIVE) Urine Methadone Screen (NEGATIVE) Ur Barbiturates Screen (NEGATIVE) Ur Phencyclidine Scrn (NEGATIVE) Ur Amphetamine Screen (NEGATIVE) U Methamphetamines Scrn (NEGATIVE) U Benzodiazepines Scrn (NEGATIVE) U Cocaine Metab Screen (NEGATIVE) U Marijuana (THC) Screen (NEGATIVE) Result Diagrams: 10/11/20 10:42 10/11/20 10:42 Sepsis Event Note - Focused Exam Vital Signs: Vital Signs Temp Pulse Resp BP BP Pulse Ox 10/11/20 16:00 37.2 C 88 18 110/55 L 98 10/11/20 10:19 125/60 10/11/20 07:17 36.5 C 74 18 113/56 L 96 Orders Last 24hrs: Active Orders 24 hr Category Date Time Status Admission Status [Patient Status] [ADT] Stat ADT 10/10/20 16:12 Active Blood Glucose Check, Bedside [RC] TIDMEALS Care 10/10/20 17:13 Active CIWAA Assessment [RC] ASDIRECTED Care 10/10/20 17:16 Active Influenza Vaccine Charge [RC] .DISCHARGE Care 10/10/20 20:23 Active Oxygen Therapy [RC] PRN Care 10/10/20 17:13 Active RT Aerosol Therapy [RC] ASDIRECTED Care 10/10/20 17:15 Active RT Post Treatment Assessment [RC] Click to Edit Care 10/10/20 22:21 Active RT Pre-Treatment Assessment [RC] Click to Edit Care 10/10/20 22:21 Active Telemetry Monitoring [Cardiac Monitoring] [RC] Q8H Care 10/10/20 16:23 Active Up With Assistance [RC] ASDIRECTED Care 10/10/20 17:13 Active VTE/DVT Education [RC] PER UNIT ROUTINE Care 10/10/20 17:13 Active Vital Signs [RC] Q4H Care 10/10/20 17:13 Active PT Evaluation and Treatment [CONS] Routine Cons 10/10/20 17:13 Active Soft Diet [DIET] Diet 10/11/20 Breakfast Active CBC WITH AUTO DIFF [HEME] AM Lab 10/12/20 05:11 Ordered CBC WITH AUTO DIFF [HEME] AM Lab 10/13/20 05:11 Ordered CBC WITH AUTO DIFF [HEME] AM Lab 10/14/20 05:11 Ordered COMPREHENSIVE METABOLIC PN,CMP [CHEM] AM Lab 10/12/20 05:11 Ordered COMPREHENSIVE METABOLIC PN,CMP [CHEM] AM Lab 10/13/20 05:11 Ordered COMPREHENSIVE METABOLIC PN,CMP [CHEM] AM Lab 10/14/20 05:11 Ordered CULTURE URINE [RM] Stat Lab 10/11/20 05:45 Received MAGNESIUM [CHEM] AM Lab 10/12/20 05:11 Ordered MAGNESIUM [CHEM] AM Lab 10/13/20 05:11 Ordered MAGNESIUM [CHEM] AM Lab 10/14/20 05:11 Ordered Acetaminophen [TylenoL] Med 10/10/20 17:13 Active 650 mg PO Q4H PRN Albuterol/Ipratropium [DuoNeb 3.0-0.5 MG/3 ML] Med 10/10/20 17:13 Active 3 ml NEB Q4HRRT PRN Dextrose 50% in Water Med 10/10/20 17:50 Active 50 ml IV ASDIRECTED PRN Fluticasone/Salmeterol [Advair Diskus 250-50] Med 10/10/20 22:30 Active 1 puff INH BID Folic Acid Med 10/11/20 09:00 Active 1 mg PO DAILY Glucagon,Human Recombinant [GlucaGen] Med 10/10/20 17:50 Active 1 mg IM ASDIRECTED PRN Heparin Sodium Med 10/10/20 18:00 Active 5,000 units SUBCUT Q12H Insulin Aspart [NovoLOG] Med 10/11/20 07:30 Active See Protocol SUBCUT TIDAC LORazepam [Ativan] Med 10/10/20 17:30 Active See Protocol IVPUSH Q4H Lactated Ringers [Ringers, Lactated] 1,000 ml Med 10/10/20 22:30 Active IV ASDIRECTED Lisinopril/Hydrochlorothiazide [Lisinopril-HCTZ 10-12.5 Med 10/11/20 09:00 Active MG] 1 tab PO DAILY Montelukast [Singulair] Med 10/11/20 09:00 Active 10 mg PO DAILY Nicotine [Habitrol] Med 10/11/20 09:00 Active 21 mg TRDERM DAILY Ondansetron [Zofran ODT] Med 10/10/20 17:13 Active 4 mg PO Q4H PRN Pantoprazole [ProTONIX IV] 40 mg Med 10/10/20 17:30 Active Sodium Chloride 0.9% [Normal Saline] 10 ml IV Q24H Remove Patch Med 10/12/20 09:00 Active 1 ea TRDERM DAILY Thiamine [Vitamin B-1] 100 mg Med 10/11/20 09:00 Active Sodium Chloride 0.9% [Normal Saline] 100 ml IV DAILY amLODIPine [Norvasc] Med 10/11/20 09:00 Active 10 mg PO DAILY atorvaSTATin [Lipitor] Med 10/11/20 21:00 Active 40 mg PO BEDTIME diazePAM [Valium.] Med 10/10/20 22:30 Active 5 mg PO BID Resuscitation Status Routine Resus Stat 10/10/20 17:13 Ordered Medication Orders Acetaminophen (Tylenol) 650 mg PO Q4H PRN PRN Reason: Pain (Mild 1-3)/fever Albuterol/Ipratropium (Duoneb 3.0-0.5 Mg/3 Ml) 3 ml NEB Q4HRRT PRN PRN Reason: Shortness Of Breath/wheezing Last Admin: 10/11/20 05:58 Dose: 3 ml Documented by: BASIA Amlodipine Besylate (Norvasc) 10 mg PO DAILY [facility] Last Admin: 10/11/20 10:19 Dose: 10 mg Documented by: RICHAR Atorvastatin Calcium (Lipitor) 40 mg PO BEDTIME [facility] Dextrose/Water (Dextrose 50% In Water) 50 ml IV ASDIRECTED PRN PRN Reason: Hypoglycemia Diazepam (Valium.) 5 mg PO BID [facility] Last Admin: 10/11/20 10:14 Dose: 5 mg Documented by: Admin: 10/10/20 23:06 Dose: 5 mg Documented by: BASIA Folic Acid (Folic Acid) 1 mg PO DAILY [facility] Last Admin: 10/11/20 10:16 Dose: 1 mg Documented by: RICHAR Glucagon (Glucagen) 1 mg IM ASDIRECTED PRN PRN Reason: Hypoglycemia Lisinopril/HCTZ (Lisinopril-Hctz 10-12.5 Mg) 1 tab PO DAILY [facility] Last Admin: 10/11/20 10:14 Dose: 1 tab Documented by: RICHAR Heparin Sodium (Porcine) (Heparin Sodium) 5,000 units SUBCUT Q12H [facility] Last Admin: 10/11/20 05:30 Dose: 5,000 units Documented by: Admin: 10/10/20 18:16 Dose: 5,000 units Documented by: [facility] Thiamine HCl 100 mg/ Sodium (Chloride) 101 mls @ 202 mls/hr IV DAILY [facility] Last Admin: 10/11/20 10:42 Dose: 202 mls/hr Documented by: RICHAR Pantoprazole Sodium 40 mg/ (Sodium Chloride) 10 mls @ 300 mls/hr IV Q24H [facility] Last Admin: 10/10/20 18:16 Dose: 300 mls/hr Documented by: [place] Lactated Ringer's (Ringers, Lactated) 1,000 mls @ 100 mls/hr IV ASDIRECTED [facility] Last Admin: 10/11/20 10:13 Dose: 100 mls/hr Documented by: Infusion: 10/11/20 10:03 Dose: 100 mls/hr Documented by: Admin: 10/11/20 00:03 Dose: 100 mls/hr Documented by: BASIA Insulin Aspart (Novolog) 0 unit SUBCUT TIDAC [facility]; Protocol Last Admin: 10/11/20 11:39 Dose: Not Given Documented by: Admin: 10/11/20 07:16 Dose: Not Given Documented by: RICHAR Lorazepam (Ativan) 0 mg IVPUSH Q4H [facility]; Protocol Last Admin: 10/11/20 16:19 Dose: 2 mg Documented by: Admin: 10/11/20 11:32 Dose: 1 mg Documented by: Admin: 10/11/20 05:40 Dose: 1 mg Documented by: Admin: 10/11/20 01:57 Dose: Not Given Documented by: Admin: 10/10/20 22:19 Dose: 1 mg Documented by: Admin: 10/10/20 19:27 Dose: 2 mg Documented by: MILAGROS Miscellaneous Information (Remove Patch) 1 ea TRDERM DAILY CRITICAL ACCESS [facility] Montelukast Sodium (Singulair) 10 mg PO DAILY [facility] Last Admin: 10/11/20 10:15 Dose: 10 mg Documented by: RICHAR Nicotine (Habitrol) 21 mg TRDERM DAILY [facility] Last Admin: 10/11/20 10:16 Dose: 21 mg Documented by: RICHAR Ondansetron HCl (Zofran Odt) 4 mg PO Q4H PRN PRN Reason: nausea, able to take PO Fluticasone/Salmeterol (Advair Diskus 250-50) 1 puff INH BID [facility] Last Admin: 10/11/20 09:05 Dose: 1 puff Documented by: Admin: 10/10/20 23:05 Dose: 1 puff Documented by: BASIA Sodium Chloride (Saline Flush) 10 ml FLUSH ASDIRECTED PRN PRN Reason: Keep Vein Open Last Admin: 10/10/20 13:48 Dose: 10 ml Documented by: IDANIA Sodium Chloride (Saline Flush) 2.5 ml FLUSH ASDIRECTED PRN PRN Reason: Keep Vein Open Assessment/Plan Comment:: I performed a history and physical exam of the patient and discussed management with resident. I have reviewed the residents note and agree with documented findings and plan unless otherwise specified in my note.
[2020-10-10] MEDS ORDERED: Pantoprazole 40 MG Vial IV SCH (17:15)
[2020-10-10] MEDS ORDERED: Potassium Chloride 20 MEQ Tab.ER PO ONE (17:21)
[2020-10-10] MEDS ORDERED: 50% Dextrose in Water 50 ML Syringe IV PRN (17:50)
[2020-10-10] MEDS ORDERED: Glucagon,Human Recombinant 1 MG Vial IM PRN (17:50)
[2020-10-10] MEDS: Pantoprazole 40 MG in Sodium Chloride 0.9% 10 ML IV SCH (18:16)
[2020-10-10] MEDS: Heparin Sodium 5,000 Units/ML Vial SUBCUT SCH (18:16)
[2020-10-10] MEDS: LORazepam 2 MG/ML SDV IVPUSH SCH ×2 (19:27→22:19)
[2020-10-10] MEDS: Fluticasone/Salmeterol 250-50 MCG Inhalation Powder 14/Diskus INH SCH (23:05)
[2020-10-10] MEDS: Diazepam 5 MG Tab PO SCH (23:06)
[2020-10-11] MEDS: Lactated Ringers 1,000 ML IV SCH ×3 (00:03→22:00)
[2020-10-11] MEDS: LORazepam 2 MG/ML SDV IVPUSH SCH ×7 (01:57→22:06)
[2020-10-11] MEDS: Heparin Sodium 5,000 Units/ML Vial SUBCUT SCH ×2 (05:30→18:43)
[2020-10-11] MEDS: Albuterol/Ipratropium 3.0-0.5 MG/3 ML Neb Soln NEB PRN (05:58)
[2020-10-11] MEDS: Insulin Aspart 100 Units/ML 3 ML Pen SUBCUT SCH ×3 (07:16→18:23)
[2020-10-11] MEDS ORDERED: Potassium Chloride 20 MEQ Tab.ER PO ONE (07:44)
--- NOTE | 2020-10-11 07:50 | PCM.PN ---
<Edvin Ghotra - Last Filed: 10/11/20 11:49> - General Info Date of Service: 10/11/20 Subjective Update: Bedside: no acute distress. Mentions continual shakes and anxiety. Denies pain, hallucinations, seizures. requesting more food - Review of Systems General: Reports: Fatigue HEENT: Reports: No Symptoms Pulmonary: Reports: Cough. Denies: Shortness of Breath, Wheezing Cardiovascular: Reports: No Symptoms Gastrointestinal: Denies: Abdominal Pain, Diarrhea, Nausea, Vomiting Genitourinary: Reports: No Symptoms Musculoskeletal: Reports: No Symptoms Neurological: Reports: Headache Psychiatric: Reports: Anxiety - Patient Data Vitals - Most Recent: Last Vital Signs Temp 97.7 F 10/11/20 07:17 Pulse 74 10/11/20 07:17 Resp 18 10/11/20 07:17 BP 113/56 L 10/11/20 07:17 Pulse Ox 96 10/11/20 07:17 Weight - Most Recent: 111.402 kg I&O - Last 24 Hours: Intake & Output 10/10/20 10/11/20 10/11/20 22:59 06:59 14:59 Intake Total 560 Output Total 0 Balance 560 Lab Results Last 24 Hours: Laboratory Results - last 24 hr 10/10/20 10/10/20 10/10/20 Range/Units 13:56 15:20 15:20 WBC 6.94 (4.0-11.0) K/uL RBC 4.38 (4.30-5.90) M/uL Hgb 12.6 (12.0-16.0) g/dL Hct 38.9 (36.0-46.0) % MCV 88.8 (80.0-98.0) fL MCH 28.8 (27.0-32.0) pg MCHC 32.4 (31.0-37.0) g/dL RDW Std Deviation 44.4 (28.0-62.0) fl RDW Coeff of Jeannette 14 (11.0-15.0) % Plt Count 226 (150-400) K/uL MPV 10.90 (7.40-12.00) fL Neut % (Auto) 67.7 (48.0-80.0) % Lymph % (Auto) 22.5 (16.0-40.0) % [place] % (Auto) 8.5 (0.0-15.0) % Eos % (Auto) 1.2 (0.0-7.0) % Baso % (Auto) 0.1 (0.0-1.5) % Neut # (Auto) 4.7 (1.4-5.7) K/uL Lymph # (Auto) 1.6 (0.6-2.4) K/uL [place] # (Auto) 0.6 (0.0-0.8) K/uL Eos # (Auto) 0.1 (0.0-0.7) K/uL Baso # (Auto) 0.0 (0.0-0.1) K/uL Nucleated RBC % 0.0 /100WBC Nucleated RBCs # 0 K/uL Sodium 137 (136-145) mmol/L Potassium 3.3 L (3.5-5.1) mmol/L Chloride 98 (98-107) mmol/L Carbon Dioxide 26.4 (21.0-32.0) mmol/L BUN 9 (7.0-18.0) mg/dL Creatinine 1.4 H (0.6-1.0) mg/dL Est Cr Clr Drug Dosing 43.11 mL/min Estimated GFR (MDRD) 38.8 ml/min Glucose 134 H (74-106) mg/dL POC Glucose (60-110) mg/dL Calcium 9.2 (8.5-10.1) mg/dL Phosphorus (2.6-4.7) mg/dL Magnesium (1.8-2.4) mg/dL Total Bilirubin 0.8 (0.2-1.0) mg/dL AST 24 (15-37) IU/L ALT 24 (14-63) IU/L Alkaline Phosphatase 79 (46-116) U/L Total Protein 7.5 (6.4-8.2) g/dL Albumin 3.9 (3.4-5.0) g/dL Globulin 3.6 (2.6-4.0) g/dL Albumin/Globulin Ratio 1.1 (0.9-1.6) Lipase 67 L (73-393) U/L Urine Color Urine Appearance Urine pH (5.0-8.0) Ur Specific [place] (1.001-1.035) Urine Protein (NEGATIVE) mg/dL Urine Glucose (UA) (NEGATIVE) mg/dL Urine Ketones (NEGATIVE) mg/dL Urine Occult Blood (NEGATIVE) Urine Nitrite (NEGATIVE) Urine Bilirubin (NEGATIVE) Urine Urobilinogen (<2.0) EU/dL Ur Leukocyte Esterase (NEGATIVE) Urine RBC (0-2/HPF) Urine WBC (0-5/HPF) Ur Epithelial Cells (NONE-FEW) Urine Bacteria (NEGATIVE) Urine HCG, Qual (NEGATIVE) Urine Opiates Screen (NEGATIVE) Ur Oxycodone Screen (NEGATIVE) Urine Methadone Screen (NEGATIVE) Ur Barbiturates Screen (NEGATIVE) Ur Phencyclidine Scrn (NEGATIVE) Ur Amphetamine Screen (NEGATIVE) U Methamphetamines Scrn (NEGATIVE) U Benzodiazepines Scrn (NEGATIVE) U Cocaine Metab Screen (NEGATIVE) U Marijuana (THC) Screen (NEGATIVE) Ethyl Alcohol mg/dL SARS-CoV-2 RNA ([place]) NEGATIVE (NEGATIVE) 10/10/20 10/10/20 10/11/20 Range/Units 15:20 15:20 05:45 WBC (4.0-11.0) K/uL RBC (4.30-5.90) M/uL Hgb (12.0-16.0) g/dL Hct (36.0-46.0) % MCV (80.0-98.0) fL MCH (27.0-32.0) pg MCHC (31.0-37.0) g/dL RDW Std Deviation (28.0-62.0) fl RDW Coeff of Jeannette (11.0-15.0) % Plt Count (150-400) K/uL MPV (7.40-12.00) fL Neut % (Auto) (48.0-80.0) % Lymph % (Auto) (16.0-40.0) % [place] % (Auto) (0.0-15.0) % Eos % (Auto) (0.0-7.0) % Baso % (Auto) (0.0-1.5) % Neut # (Auto) (1.4-5.7) K/uL Lymph # (Auto) (0.6-2.4) K/uL [place] # (Auto) (0.0-0.8) K/uL Eos # (Auto) (0.0-0.7) K/uL Baso # (Auto) (0.0-0.1) K/uL Nucleated RBC % /100WBC Nucleated RBCs # K/uL Sodium (136-145) mmol/L Potassium (3.5-5.1) mmol/L Chloride (98-107) mmol/L Carbon Dioxide (21.0-32.0) mmol/L BUN (7.0-18.0) mg/dL Creatinine (0.6-1.0) mg/dL Est Cr Clr Drug Dosing mL/min Estimated GFR (MDRD) ml/min Glucose (74-106) mg/dL POC Glucose (60-110) mg/dL Calcium (8.5-10.1) mg/dL Phosphorus 2.6 (2.6-4.7) mg/dL Magnesium 1.9 (1.8-2.4) mg/dL Total Bilirubin (0.2-1.0) mg/dL AST (15-37) IU/L ALT (14-63) IU/L Alkaline Phosphatase (46-116) U/L Total Protein (6.4-8.2) g/dL Albumin (3.4-5.0) g/dL Globulin (2.6-4.0) g/dL Albumin/Globulin Ratio (0.9-1.6) Lipase (73-393) U/L Urine Color YELLOW Urine Appearance CLEAR Urine pH 5.5 (5.0-8.0) Ur Specific [place] 1.015 (1.001-1.035) Urine Protein NEGATIVE (NEGATIVE) mg/dL Urine Glucose (UA) NEGATIVE (NEGATIVE) mg/dL Urine Ketones NEGATIVE (NEGATIVE) mg/dL Urine Occult Blood NEGATIVE (NEGATIVE) Urine Nitrite NEGATIVE (NEGATIVE) Urine Bilirubin NEGATIVE (NEGATIVE) Urine Urobilinogen 0.2 (<2.0) EU/dL Ur Leukocyte Esterase TRACE H (NEGATIVE) Urine RBC 0-1 (0-2/HPF) Urine WBC 0-3 (0-5/HPF) Ur Epithelial Cells RARE (NONE-FEW) Urine Bacteria FEW (NEGATIVE) Urine HCG, Qual (NEGATIVE) Urine Opiates Screen (NEGATIVE) Ur Oxycodone Screen (NEGATIVE) Urine Methadone Screen (NEGATIVE) Ur Barbiturates Screen (NEGATIVE) Ur Phencyclidine Scrn (NEGATIVE) Ur Amphetamine Screen (NEGATIVE) U Methamphetamines Scrn (NEGATIVE) U Benzodiazepines Scrn (NEGATIVE) U Cocaine Metab Screen (NEGATIVE) U Marijuana (THC) Screen (NEGATIVE) Ethyl Alcohol <3 mg/dL SARS-CoV-2 RNA ([place]) (NEGATIVE) 10/11/20 10/11/20 10/11/20 Range/Units 05:45 05:45 05:55 WBC (4.0-11.0) K/uL RBC (4.30-5.90) M/uL Hgb (12.0-16.0) g/dL Hct (36.0-46.0) % MCV (80.0-98.0) fL MCH (27.0-32.0) pg MCHC (31.0-37.0) g/dL RDW Std Deviation (28.0-62.0) fl RDW Coeff of Jeannette (11.0-15.0) % Plt Count (150-400) K/uL MPV (7.40-12.00) fL Neut % (Auto) (48.0-80.0) % Lymph % (Auto) (16.0-40.0) % [place] % (Auto) (0.0-15.0) % Eos % (Auto) (0.0-7.0) % Baso % (Auto) (0.0-1.5) % Neut # (Auto) (1.4-5.7) K/uL Lymph # (Auto) (0.6-2.4) K/uL [place] # (Auto) (0.0-0.8) K/uL Eos # (Auto) (0.0-0.7) K/uL Baso # (Auto) (0.0-0.1) K/uL Nucleated RBC % /100WBC Nucleated RBCs # K/uL Sodium (136-145) mmol/L Potassium (3.5-5.1) mmol/L Chloride (98-107) mmol/L Carbon Dioxide (21.0-32.0) mmol/L BUN (7.0-18.0) mg/dL Creatinine (0.6-1.0) mg/dL Est Cr Clr Drug Dosing mL/min Estimated GFR (MDRD) ml/min Glucose (74-106) mg/dL POC Glucose 117 H (60-110) mg/dL Calcium (8.5-10.1) mg/dL Phosphorus (2.6-4.7) mg/dL Magnesium (1.8-2.4) mg/dL Total Bilirubin (0.2-1.0) mg/dL AST (15-37) IU/L ALT (14-63) IU/L Alkaline Phosphatase (46-116) U/L Total Protein (6.4-8.2) g/dL Albumin (3.4-5.0) g/dL Globulin (2.6-4.0) g/dL Albumin/Globulin Ratio (0.9-1.6) Lipase (73-393) U/L Urine Color Urine Appearance Urine pH (5.0-8.0) Ur Specific [place] (1.001-1.035) Urine Protein (NEGATIVE) mg/dL Urine Glucose (UA) (NEGATIVE) mg/dL Urine Ketones (NEGATIVE) mg/dL Urine Occult Blood (NEGATIVE) Urine Nitrite (NEGATIVE) Urine Bilirubin (NEGATIVE) Urine Urobilinogen (<2.0) EU/dL Ur Leukocyte Esterase (NEGATIVE) Urine RBC (0-2/HPF) Urine WBC (0-5/HPF) Ur Epithelial Cells (NONE-FEW) Urine Bacteria (NEGATIVE) Urine HCG, Qual NEGATIVE (NEGATIVE) Urine Opiates Screen NEGATIVE (NEGATIVE) Ur Oxycodone Screen NEGATIVE (NEGATIVE) Urine Methadone Screen NEGATIVE (NEGATIVE) Ur Barbiturates Screen NEGATIVE (NEGATIVE) Ur Phencyclidine Scrn NEGATIVE (NEGATIVE) Ur Amphetamine Screen NEGATIVE (NEGATIVE) U Methamphetamines Scrn NEGATIVE (NEGATIVE) U Benzodiazepines Scrn POSITIVE (NEGATIVE) U Cocaine Metab Screen NEGATIVE (NEGATIVE) U Marijuana (THC) Screen NEGATIVE (NEGATIVE) Ethyl Alcohol mg/dL SARS-CoV-2 RNA ([place]) (NEGATIVE) Med Orders - Current: Current Medications Acetaminophen (Tylenol) 650 mg PO Q4H PRN PRN Reason: Pain (Mild 1-3)/fever Albuterol/Ipratropium (Duoneb 3.0-0.5 Mg/3 Ml) 3 ml NEB Q4HRRT PRN PRN Reason: Shortness Of Breath/wheezing Last Admin: 10/11/20 05:58 Dose: 3 ml Documented by: Amlodipine Besylate (Norvasc) 10 mg PO DAILY MARCELO Atorvastatin Calcium (Lipitor) 40 mg PO BEDTIME MARCELO Dextrose/Water (Dextrose 50% In Water) 50 ml IV ASDIRECTED PRN PRN Reason: Hypoglycemia Diazepam (Valium.) 5 mg PO BID [facility] Last Admin: 10/10/20 23:06 Dose: 5 mg Documented by: Folic Acid (Folic Acid) 1 mg PO DAILY [facility] Glucagon (Glucagen) 1 mg IM ASDIRECTED PRN PRN Reason: Hypoglycemia Lisinopril/HCTZ (Lisinopril-Hctz 10-12.5 Mg) 1 tab PO DAILY [facility] Heparin Sodium (Porcine) (Heparin Sodium) 5,000 units SUBCUT Q12H [facility] Last Admin: 10/11/20 05:30 Dose: 5,000 units Documented by: Thiamine HCl 100 mg/ Sodium (Chloride) 101 mls @ 202 mls/hr IV DAILY [facility] Pantoprazole Sodium 40 mg/ (Sodium Chloride) 10 mls @ 300 mls/hr IV Q24H [facility] Last Admin: 10/10/20 18:16 Dose: 300 mls/hr Documented by: Lactated Ringer's (Ringers, Lactated) 1,000 mls @ 100 mls/hr IV ASDIRECTED [facility] Last Admin: 10/11/20 00:03 Dose: 100 mls/hr Documented by: Influenza Virus Vaccine (Flublok Quad [id number] Syringe) 180 mcg IM .ONCE ONE Stop: 10/11/20 09:01 Insulin Aspart (Novolog) 0 unit SUBCUT TIDAC [facility]; Protocol Last Admin: 10/11/20 07:16 Dose: Not Given Documented by: Lorazepam (Ativan) 0 mg IVPUSH Q4H [facility]; Protocol Last Admin: 10/11/20 05:40 Dose: 1 mg Documented by: Miscellaneous Information (Remove Patch) 1 ea TRDERM DAILY [facility] Montelukast Sodium (Singulair) 10 mg PO DAILY [facility] Nicotine (Habitrol) 21 mg TRDERM DAILY [facility] Ondansetron HCl (Zofran Odt) 4 mg PO Q4H PRN PRN Reason: nausea, able to take PO Fluticasone/Salmeterol (Advair Diskus 250-50) 1 puff INH BID [facility] Last Admin: 10/10/20 23:05 Dose: 1 puff Documented by: Sodium Chloride (Saline Flush) 10 ml FLUSH ASDIRECTED PRN PRN Reason: Keep Vein Open Last Admin: 10/10/20 13:48 Dose: 10 ml Documented by: Sodium Chloride (Saline Flush) 2.5 ml FLUSH ASDIRECTED PRN PRN Reason: Keep Vein Open Discontinued Medications Sodium Chloride (Normal Saline) 1,000 mls @ 999 mls/hr IV STAT ONE Stop: 10/10/20 14:21 Last Admin: 10/10/20 13:48 Dose: 999 mls/hr Documented by: Multivitamins/Minerals 10 ml/Thiamine HCl 100 mg/ Folic Acid 1 mg/ Sodium Chloride 1,011.2 mls @ 125 mls/hr IV ONETIME ONE Stop: 10/11/20 00:22 Last Admin: 10/10/20 17:20 Dose: 125 mls/hr Documented by: Influenza Virus Vaccine (Pharmacy To Dose - Influenza Vaccine) 1 each IM ONETIME ONE Stop: 10/10/20 20:24 Lorazepam (Ativan) 1 mg IVPUSH ONETIME ONE Stop: 10/10/20 13:22 Last Admin: 10/10/20 13:48 Dose: 1 mg Documented by: Lorazepam (Ativan) 1 mg IVPUSH ONETIME ONE Stop: 10/10/20 15:59 Last Admin: 10/10/20 16:15 Dose: 1 mg Documented by: Potassium Chloride (Klor-Con M20) 40 meq PO ONETIME ONE Stop: 10/10/20 17:22 Last Admin: 10/10/20 18:14 Dose: 40 meq Documented by: Potassium Chloride (Klor-Con M20) 40 meq PO ONETIME ONE Stop: 10/11/20 07:45 - Exam Quality Assessment: No: Supplemental Oxygen General: Alert, Oriented, Cooperative, No Acute Distress HEENT: EOMI, Mucous Membr. Moist/[place] Neck: Supple Lungs: Normal Respiratory Effort, Wheezing Cardiovascular: Regular Rate, Regular Rhythm GI/Abdominal Exam: Soft, Non-Tender Neurological: No New Focal Deficit Psy/Mental Status: Alert, Anxious Sepsis Event Note - Evaluation Sepsis Screening Result: No Definite Risk - Focused Exam Vital Signs: Vital Signs Temp Pulse Resp BP Pulse Ox Pulse Ox 10/11/20 07:17 97.7 F 74 18 113/56 L 96 10/11/20 04:00 97.0 F 72 16 120/71 96 10/11/20 00:00 97.9 F 89 18 113/72 95 10/10/20 20:00 98.5 F 78 18 109/56 L 98 98 - Problem List & Annotations (1) Alcohol withdrawal SNOMED Code(s): 333387106 Code(s): F10.239 - ALCOHOL DEPENDENCE WITH WITHDRAWAL, UNSPECIFIED Status: Acute Current Visit: No Qualifiers: Complication of substance-induced condition: uncomplicated Qualified Code(s): F10.230 - Alcohol dependence with withdrawal, uncomplicated (2) Asthma SNOMED Code(s): 815294426 Code(s): J45.909 - UNSPECIFIED ASTHMA, UNCOMPLICATED Status: Acute Priority: Medium Current Visit: No Qualifiers: Asthma severity: mild Asthma persistence: intermittent Asthma complication type: uncomplicated Qualified Code(s): J45.20 - Mild intermittent asthma, uncomplicated - Problem List Review Problem List Initiated/Reviewed/Updated: Yes - My Orders Last 24 Hours: My Active Orders 10/10/20 17:13 Blood Glucose Check, Bedside [RC] TIDMEALS Oxygen Therapy [RC] PRN Up With Assistance [RC] ASDIRECTED VTE/DVT Education [RC] PER UNIT ROUTINE Vital Signs [RC] Q4H PT Evaluation and Treatment [CONS] Routine Acetaminophen [TylenoL] 650 mg PO Q4H PRN Albuterol/Ipratropium [DuoNeb 3.0-0.5 MG/3 ML] 3 ml NEB Q4HRRT PRN Ondansetron [Zofran ODT] 4 mg PO Q4H PRN Resuscitation Status Routine 10/10/20 17:15 RT Aerosol Therapy [RC] ASDIRECTED 10/10/20 17:16 CIWAA Assessment [RC] ASDIRECTED 10/10/20 17:30 LORazepam [Ativan] See Protocol IVPUSH Q4H 10/10/20 17:50 Dextrose 50% in Water 50 ml IV ASDIRECTED PRN Glucagon,Human Recombinant [GlucaGen] 1 mg IM ASDIRECTED PRN 10/10/20 18:00 Heparin Sodium 5,000 units SUBCUT Q12H 10/11/20 07:30 Insulin Aspart [NovoLOG] See Protocol SUBCUT TIDAC 10/11/20 09:00 Folic Acid 1 mg PO DAILY Nicotine [Habitrol] 21 mg TRDERM DAILY Thiamine [Vitamin B-1] 100 mg Sodium Chloride 0.9% [Normal Saline] 100 ml IV DAILY - Plan Plan:: Assessment: 1. Acute alcohol withdrawal 2. Significant past medical history of alcohol use disorder 3. Hypokalemia 4. ALMAS 5. Past medical history: Asthma, type 2 diabetes, medical noncompliance, significant alcohol abuse. Tobacco abuse, stroke Plan 1. Acute alcohol withdrawal: Continue with CIWA/Ativan protocol. Daily thiamine+folate. Replete electrolytes as needed. Continue Diazepam 5 mg BID Mentions significant PMH stroke requiring rehab; currently on daily ASA; will require records from [place] as patient is a poor historian regarding this event. Endorses red blood per rectum; stool occult ordered. Abdominal pain: Hgb stable; pantoprazole 40 mg daily for now. 2. Type 2 diabetes; sliding scale insulin + 3 times daily Accu-Cheks with meals 3. hx of CVA: continue ASA. No acute deficits noted. Gait stable and normal. 4. Tobacco abuse: 21 mcg nicotine patch daily <Pablito Shearer - Last Filed: 10/11/20 16:44> - Patient Data Vitals - Most Recent: Last Vital Signs Temp 37.2 C 10/11/20 16:00 Pulse 88 10/11/20 16:00 Resp 18 10/11/20 16:00 BP 110/55 L 10/11/20 16:00 Pulse Ox 98 10/11/20 16:00 I&O - Last 24 Hours: Intake & Output 10/11/20 10/11/20 10/11/20 06:59 14:59 22:59 Intake Total 560 Output Total 0 Balance 560 Lab Results Last 24 Hours: Laboratory Results - last 24 hr 10/11/20 10/11/20 10/11/20 Range/Units 05:45 05:45 05:45 WBC (4.0-11.0) K/uL RBC (4.30-5.90) M/uL Hgb (12.0-16.0) g/dL Hct (36.0-46.0) % MCV (80.0-98.0) fL MCH (27.0-32.0) pg MCHC (31.0-37.0) g/dL RDW Std Deviation (28.0-62.0) fl RDW Coeff of Jeannette (11.0-15.0) % Plt Count (150-400) K/uL MPV (7.40-12.00) fL Neut % (Auto) (48.0-80.0) % Lymph % (Auto) (16.0-40.0) % [place] % (Auto) (0.0-15.0) % Eos % (Auto) (0.0-7.0) % Baso % (Auto) (0.0-1.5) % Neut # (Auto) (1.4-5.7) K/uL Lymph # (Auto) (0.6-2.4) K/uL [place] # (Auto) (0.0-0.8) K/uL Eos # (Auto) (0.0-0.7) K/uL Baso # (Auto) (0.0-0.1) K/uL Nucleated RBC % /100WBC Nucleated RBCs # K/uL Sodium (136-145) mmol/L Potassium (3.5-5.1) mmol/L Chloride (98-107) mmol/L Carbon Dioxide (21.0-32.0) mmol/L BUN (7.0-18.0) mg/dL Creatinine (0.6-1.0) mg/dL Est Cr Clr Drug Dosing mL/min Estimated GFR (MDRD) ml/min Glucose (74-106) mg/dL POC Glucose (60-110) mg/dL Calcium (8.5-10.1) mg/dL Total Bilirubin (0.2-1.0) mg/dL AST (15-37) IU/L ALT (14-63) IU/L Alkaline Phosphatase (46-116) U/L Total Protein (6.4-8.2) g/dL Albumin (3.4-5.0) g/dL Globulin (2.6-4.0) g/dL Albumin/Globulin Ratio (0.9-1.6) TSH 3rd Generation (0.36-3.74) uIU/mL Urine Color YELLOW Urine Appearance CLEAR Urine pH 5.5 (5.0-8.0) Ur Specific [place] 1.015 (1.001-1.035) Urine Protein NEGATIVE (NEGATIVE) mg/dL Urine Glucose (UA) NEGATIVE (NEGATIVE) mg/dL Urine Ketones NEGATIVE (NEGATIVE) mg/dL Urine Occult Blood NEGATIVE (NEGATIVE) Urine Nitrite NEGATIVE (NEGATIVE) Urine Bilirubin NEGATIVE (NEGATIVE) Urine Urobilinogen 0.2 (<2.0) EU/dL Ur Leukocyte Esterase TRACE H (NEGATIVE) Urine RBC 0-1 (0-2/HPF) Urine WBC 0-3 (0-5/HPF) Ur Epithelial Cells RARE (NONE-FEW) Urine Bacteria FEW (NEGATIVE) Urine HCG, Qual NEGATIVE (NEGATIVE) Urine Opiates Screen NEGATIVE (NEGATIVE) Ur Oxycodone Screen NEGATIVE (NEGATIVE) Urine Methadone Screen NEGATIVE (NEGATIVE) Ur Barbiturates Screen NEGATIVE (NEGATIVE) Ur Phencyclidine Scrn NEGATIVE (NEGATIVE) Ur Amphetamine Screen NEGATIVE (NEGATIVE) U Methamphetamines Scrn NEGATIVE (NEGATIVE) U Benzodiazepines Scrn POSITIVE (NEGATIVE) U Cocaine Metab Screen NEGATIVE (NEGATIVE) U Marijuana (THC) Screen NEGATIVE (NEGATIVE) 10/11/20 10/11/20 10/11/20 Range/Units 05:55 10:42 10:42 WBC 4.60 (4.0-11.0) K/uL RBC 3.89 L (4.30-5.90) M/uL Hgb 11.2 L (12.0-16.0) g/dL Hct 35.3 L (36.0-46.0) % MCV 90.7 (80.0-98.0) fL MCH 28.8 (27.0-32.0) pg MCHC 31.7 (31.0-37.0) g/dL RDW Std Deviation 45.6 (28.0-62.0) fl RDW Coeff of Jeannette 14 (11.0-15.0) % Plt Count 204 (150-400) K/uL MPV 10.30 (7.40-12.00) fL Neut % (Auto) 49.0 (48.0-80.0) % Lymph % (Auto) 36.5 (16.0-40.0) % [place] % (Auto) 10.4 (0.0-15.0) % Eos % (Auto) 3.9 (0.0-7.0) % Baso % (Auto) 0.2 (0.0-1.5) % Neut # (Auto) 2.3 (1.4-5.7) K/uL Lymph # (Auto) 1.7 (0.6-2.4) K/uL [place] # (Auto) 0.5 (0.0-0.8) K/uL Eos # (Auto) 0.2 (0.0-0.7) K/uL Baso # (Auto) 0.0 (0.0-0.1) K/uL Nucleated RBC % 0.0 /100WBC Nucleated RBCs # 0 K/uL Sodium (136-145) mmol/L Potassium (3.5-5.1) mmol/L Chloride (98-107) mmol/L Carbon Dioxide (21.0-32.0) mmol/L BUN (7.0-18.0) mg/dL Creatinine (0.6-1.0) mg/dL Est Cr Clr Drug Dosing mL/min Estimated GFR (MDRD) ml/min Glucose (74-106) mg/dL POC Glucose 117 H (60-110) mg/dL Calcium (8.5-10.1) mg/dL Total Bilirubin (0.2-1.0) mg/dL AST (15-37) IU/L ALT (14-63) IU/L Alkaline Phosphatase (46-116) U/L Total Protein (6.4-8.2) g/dL Albumin (3.4-5.0) g/dL Globulin (2.6-4.0) g/dL Albumin/Globulin Ratio (0.9-1.6) TSH 3rd Generation 0.98 (0.36-3.74) uIU/mL Urine Color Urine Appearance Urine pH (5.0-8.0) Ur Specific [place] (1.001-1.035) Urine Protein (NEGATIVE) mg/dL Urine Glucose (UA) (NEGATIVE) mg/dL Urine Ketones (NEGATIVE) mg/dL Urine Occult Blood (NEGATIVE) Urine Nitrite (NEGATIVE) Urine Bilirubin (NEGATIVE) Urine Urobilinogen (<2.0) EU/dL Ur Leukocyte Esterase (NEGATIVE) Urine RBC (0-2/HPF) Urine WBC (0-5/HPF) Ur Epithelial Cells (NONE-FEW) Urine Bacteria (NEGATIVE) Urine HCG, Qual (NEGATIVE) Urine Opiates Screen (NEGATIVE) Ur Oxycodone Screen (NEGATIVE) Urine Methadone Screen (NEGATIVE) Ur Barbiturates Screen (NEGATIVE) Ur Phencyclidine Scrn (NEGATIVE) Ur Amphetamine Screen (NEGATIVE) U Methamphetamines Scrn (NEGATIVE) U Benzodiazepines Scrn (NEGATIVE) U Cocaine Metab Screen (NEGATIVE) U Marijuana (THC) Screen (NEGATIVE) 10/11/20 10/11/20 Range/Units 10:42 11:38 WBC (4.0-11.0) K/uL RBC (4.30-5.90) M/uL Hgb (12.0-16.0) g/dL Hct (36.0-46.0) % MCV (80.0-98.0) fL MCH (27.0-32.0) pg MCHC (31.0-37.0) g/dL RDW Std Deviation (28.0-62.0) fl RDW Coeff of Jeannette (11.0-15.0) % Plt Count (150-400) K/uL MPV (7.40-12.00) fL Neut % (Auto) (48.0-80.0) % Lymph % (Auto) (16.0-40.0) % [place] % (Auto) (0.0-15.0) % Eos % (Auto) (0.0-7.0) % Baso % (Auto) (0.0-1.5) % Neut # (Auto) (1.4-5.7) K/uL Lymph # (Auto) (0.6-2.4) K/uL [place] # (Auto) (0.0-0.8) K/uL Eos # (Auto) (0.0-0.7) K/uL Baso # (Auto) (0.0-0.1) K/uL Nucleated RBC % /100WBC Nucleated RBCs # K/uL Sodium 140 (136-145) mmol/L Potassium 4.1 (3.5-5.1) mmol/L Chloride 106 (98-107) mmol/L Carbon Dioxide 27.8 (21.0-32.0) mmol/L BUN 9 (7.0-18.0) mg/dL Creatinine 1.3 H (0.6-1.0) mg/dL Est Cr Clr Drug Dosing 46.43 mL/min Estimated GFR (MDRD) 51.2 ml/min Glucose 131 H (74-106) mg/dL POC Glucose 126 H (60-110) mg/dL Calcium 8.8 (8.5-10.1) mg/dL Total Bilirubin 0.5 (0.2-1.0) mg/dL AST 18 (15-37) IU/L ALT 21 (14-63) IU/L Alkaline Phosphatase 67 (46-116) U/L Total Protein 6.3 L (6.4-8.2) g/dL Albumin 3.1 L (3.4-5.0) g/dL Globulin 3.2 (2.6-4.0) g/dL Albumin/Globulin Ratio 1.0 (0.9-1.6) TSH 3rd Generation (0.36-3.74) uIU/mL Urine Color Urine Appearance Urine pH (5.0-8.0) Ur Specific [place] (1.001-1.035) Urine Protein (NEGATIVE) mg/dL Urine Glucose (UA) (NEGATIVE) mg/dL Urine Ketones (NEGATIVE) mg/dL Urine Occult Blood (NEGATIVE) Urine Nitrite (NEGATIVE) Urine Bilirubin (NEGATIVE) Urine Urobilinogen (<2.0) EU/dL Ur Leukocyte Esterase (NEGATIVE) Urine RBC (0-2/HPF) Urine WBC (0-5/HPF) Ur Epithelial Cells (NONE-FEW) Urine Bacteria (NEGATIVE) Urine HCG, Qual (NEGATIVE) Urine Opiates Screen (NEGATIVE) Ur Oxycodone Screen (NEGATIVE) Urine Methadone Screen (NEGATIVE) Ur Barbiturates Screen (NEGATIVE) Ur Phencyclidine Scrn (NEGATIVE) Ur Amphetamine Screen (NEGATIVE) U Methamphetamines Scrn (NEGATIVE) U Benzodiazepines Scrn (NEGATIVE) U Cocaine Metab Screen (NEGATIVE) U Marijuana (THC) Screen (NEGATIVE) Med Orders - Current: Current Medications Acetaminophen (Tylenol) 650 mg PO Q4H PRN PRN Reason: Pain (Mild 1-3)/fever Albuterol/Ipratropium (Duoneb 3.0-0.5 Mg/3 Ml) 3 ml NEB Q4HRRT PRN PRN Reason: Shortness Of Breath/wheezing Last Admin: 10/11/20 05:58 Dose: 3 ml Documented by: Amlodipine Besylate (Norvasc) 10 mg PO DAILY [facility] Last Admin: 10/11/20 10:19 Dose: 10 mg Documented by: Atorvastatin Calcium (Lipitor) 40 mg PO BEDTIME [facility] Dextrose/Water (Dextrose 50% In Water) 50 ml IV ASDIRECTED PRN PRN Reason: Hypoglycemia Diazepam (Valium.) 5 mg PO BID [facility] Last Admin: 10/11/20 10:14 Dose: 5 mg Documented by: Folic Acid (Folic Acid) 1 mg PO DAILY [facility] Last Admin: 10/11/20 10:16 Dose: 1 mg Documented by: Glucagon (Glucagen) 1 mg IM ASDIRECTED PRN PRN Reason: Hypoglycemia Lisinopril/HCTZ (Lisinopril-Hctz 10-12.5 Mg) 1 tab PO DAILY [facility] Last Admin: 10/11/20 10:14 Dose: 1 tab Documented by: Heparin Sodium (Porcine) (Heparin Sodium) 5,000 units SUBCUT Q12H [facility] Last Admin: 10/11/20 05:30 Dose: 5,000 units Documented by: Thiamine HCl 100 mg/ Sodium (Chloride) 101 mls @ 202 mls/hr IV DAILY [facility] Last Admin: 10/11/20 10:42 Dose: 202 mls/hr Documented by: Pantoprazole Sodium 40 mg/ (Sodium Chloride) 10 mls @ 300 mls/hr IV Q24H [facility] Last Admin: 10/10/20 18:16 Dose: 300 mls/hr Documented by: Lactated Ringer's (Ringers, Lactated) 1,000 mls @ 100 mls/hr IV ASDIRECTED [facility] Last Admin: 10/11/20 10:13 Dose: 100 mls/hr Documented by: Insulin Aspart (Novolog) 0 unit SUBCUT TIDAC [facility]; Protocol Last Admin: 10/11/20 11:39 Dose: Not Given Documented by: Lorazepam (Ativan) 0 mg IVPUSH Q4H [facility]; Protocol Last Admin: 10/11/20 16:19 Dose: 2 mg Documented by: Miscellaneous Information (Remove Patch) 1 ea TRDERM DAILY [facility] Montelukast Sodium (Singulair) 10 mg PO DAILY [facility] Last Admin: 10/11/20 10:15 Dose: 10 mg Documented by: Nicotine (Habitrol) 21 mg TRDERM DAILY [facility] Last Admin: 10/11/20 10:16 Dose: 21 mg Documented by: Ondansetron HCl (Zofran Odt) 4 mg PO Q4H PRN PRN Reason: nausea, able to take PO Fluticasone/Salmeterol (Advair Diskus 250-50) 1 puff INH BID [facility] Last Admin: 10/11/20 09:05 Dose: 1 puff Documented by: Sodium Chloride (Saline Flush) 10 ml FLUSH ASDIRECTED PRN PRN Reason: Keep Vein Open Last Admin: 10/10/20 13:48 Dose: 10 ml Documented by: Sodium Chloride (Saline Flush) 2.5 ml FLUSH ASDIRECTED PRN PRN Reason: Keep Vein Open Discontinued Medications Sodium Chloride (Normal Saline) 1,000 mls @ 999 mls/hr IV STAT ONE Stop: 10/10/20 14:21 Last Admin: 10/10/20 13:48 Dose: 999 mls/hr Documented by: Multivitamins/Minerals 10 ml/Thiamine HCl 100 mg/ Folic Acid 1 mg/ Sodium Chloride 1,011.2 mls @ 125 mls/hr IV ONETIME ONE Stop: 10/11/20 00:22 Last Admin: 10/10/20 17:20 Dose: 125 mls/hr Documented by: Influenza Virus Vaccine (Pharmacy To Dose - Influenza Vaccine) 1 each IM ONETIME ONE Stop: 10/10/20 20:24 Influenza Virus Vaccine (Flublok Quad 3523-2351 Syringe) 180 mcg IM .ONCE ONE Stop: 10/11/20 09:01 Lorazepam (Ativan) 1 mg IVPUSH ONETIME ONE Stop: 10/10/20 13:22 Last Admin: 10/10/20 13:48 Dose: 1 mg Documented by: Lorazepam (Ativan) 1 mg IVPUSH ONETIME ONE Stop: 10/10/20 15:59 Last Admin: 10/10/20 16:15 Dose: 1 mg Documented by: Lorazepam (Ativan) 2 mg IVPUSH ONETIME ONE Stop: 10/11/20 16:18 Last Admin: 10/11/20 16:24 Dose: 2 mg Documented by: Potassium Chloride (Klor-Con M20) 40 meq PO ONETIME ONE Stop: 10/10/20 17:22 Last Admin: 10/10/20 18:14 Dose: 40 meq Documented by: Potassium Chloride (Klor-Con M20) 40 meq PO ONETIME ONE Stop: 10/11/20 07:45 Last Admin: 10/11/20 08:03 Dose: 40 meq Documented by: Sepsis Event Note - Focused Exam Vital Signs: Vital Signs Temp Pulse Resp BP BP Pulse Ox 10/11/20 16:00 37.2 C 88 18 110/55 L 98 10/11/20 10:19 125/60 10/11/20 07:17 36.5 C 74 18 113/56 L 96 - My Orders Last 24 Hours: My Active Orders 10/10/20 16:23 Telemetry Monitoring [Cardiac Monitoring] [RC] Q8H 10/10/20 20:23 Influenza Vaccine Charge [RC] .DISCHARGE 10/10/20 22:21 RT Post Treatment Assessment [RC] Click to Edit RT Pre-Treatment Assessment [RC] Click to Edit 10/10/20 22:30 Fluticasone/Salmeterol [Advair Diskus 250-50] 1 puff INH BID Lactated Ringers [Ringers, Lactated] 1,000 ml IV ASDIRECTED diazePAM [Valium.] 5 mg PO BID 10/11/20 09:00 Lisinopril/Hydrochlorothiazide [Lisinopril-HCTZ 10-12.5 MG] 1 tab PO DAILY Montelukast [Singulair] 10 mg PO DAILY amLODIPine [Norvasc] 10 mg PO DAILY 10/11/20 21:00 atorvaSTATin [Lipitor] 40 mg PO BEDTIME 10/12/20 09:00 Remove Patch 1 ea TRDERM DAILY - Plan Plan:: I have seen and evaluated the patient and agree with the residents note unless specified in my note
[2020-10-11] MEDS ORDERED: FLU VAC QV 2020(18YR UP)RCM/PF 180 MCG/0.5 ML SYRINGE IM ONE (09:00)
[2020-10-11] MEDS: Fluticasone/Salmeterol 250-50 MCG Inhalation Powder 14/Diskus INH SCH ×2 (09:05→20:58)
[2020-10-11] MEDS: Lisinopril/Hydrochlorothiazide 10-12.5 MG Tab PO SCH (10:14)
[2020-10-11] MEDS: Diazepam 5 MG Tab PO SCH ×2 (10:14→20:58)
[2020-10-11] MEDS: Montelukast 10 MG Tab PO SCH (10:15)
[2020-10-11] MEDS: Nicotine 21 MG/24 Hr Patch TRDERM SCH (10:16)
[2020-10-11] MEDS: Folic Acid 1 MG Tab PO SCH (10:16)
[2020-10-11] MEDS: amLODIPine 5 MG Tab PO SCH (10:19)
[2020-10-11] MEDS: Thiamine 100 MG in Sodium Chloride 0.9% 100 ML IV SCH (10:42)
[2020-10-11 11:11] LABS: CARBON DIOXIDE,CO2 27.8 mmol/L (21.0-32.0); POTASSIUM,K 4.1 mmol/L (3.5-5.1)
[2020-10-11] MEDS ORDERED: LORazepam 2 MG/ML SDV IVPUSH ONE (16:17)
[2020-10-11] MEDS: Pantoprazole 40 MG in Sodium Chloride 0.9% 10 ML IV SCH (18:42)
[2020-10-11] MEDS: atorvaSTATin 40 MG Tab PO SCH (20:58)
[2020-10-12] MEDS: LORazepam 2 MG/ML SDV IVPUSH SCH ×5 (02:29→18:06)
[2020-10-12] MEDS: Heparin Sodium 5,000 Units/ML Vial SUBCUT SCH ×2 (05:33→17:57)
[2020-10-12 06:33] LABS: BLOOD UREA NITROGEN,BUN 9 mg/dL (7.0-18.0); CARBON DIOXIDE,CO2 28.9 mmol/L (21.0-32.0); CHLORIDE,CL 109 mmol/L (98-107); GLUCOSE RANDOM 116 mg/dL (74-106); POTASSIUM,K 3.9 mmol/L (3.5-5.1); SODIUM,NA 144 mmol/L (136-145)
[2020-10-12] MEDS: Fluticasone/Salmeterol 250-50 MCG Inhalation Powder 14/Diskus INH SCH ×2 (08:31→20:32)
[2020-10-12] MEDS: Insulin Aspart 100 Units/ML 3 ML Pen SUBCUT SCH ×3 (08:31→17:02)
[2020-10-12] MEDS: Folic Acid 1 MG Tab PO SCH (08:32)
[2020-10-12] MEDS: amLODIPine 5 MG Tab PO SCH (08:32)
[2020-10-12] MEDS: Nicotine 21 MG/24 Hr Patch TRDERM SCH (08:33)
[2020-10-12] MEDS: Lisinopril/Hydrochlorothiazide 10-12.5 MG Tab PO SCH (08:33)
[2020-10-12] MEDS: Diazepam 5 MG Tab PO SCH ×2 (08:33→20:31)
[2020-10-12] MEDS: Montelukast 10 MG Tab PO SCH (08:47)
[2020-10-12] MEDS: Thiamine 100 MG in Sodium Chloride 0.9% 100 ML IV SCH (08:52)
[2020-10-12] MEDS: Lactated Ringers 1,000 ML IV SCH ×2 (08:53→19:33)
[2020-10-12] MEDS: Albuterol/Ipratropium 3.0-0.5 MG/3 ML Neb Soln NEB PRN ×2 (09:25→18:30)
[2020-10-12] MEDS ORDERED: Magnesium Sulfate/Water 2 GM/50 ML Premix Bag IV ONE (12:49)
--- NOTE | 2020-10-12 12:50 | PCM.PN ---
- General Info Date of Service: 10/12/20 - Patient Data Vitals - Most Recent: Last Vital Signs Temp 36.6 C 10/12/20 11:38 Pulse 80 10/12/20 11:38 Resp 18 10/12/20 11:38 BP 166/86 H 10/12/20 11:38 Pulse Ox 97 10/12/20 11:38 Weight - Most Recent: 111.402 kg I&O - Last 24 Hours: Intake & Output 10/11/20 10/12/20 10/12/20 22:59 06:59 14:59 Intake Total 4000 680 Output Total 700 1250 Balance 3300 -570 Lab Results Last 24 Hours: Laboratory Results - last 24 hr 10/12/20 10/12/20 10/12/20 Range/Units 05:40 05:40 08:30 WBC 4.09 (4.0-11.0) K/uL RBC 3.68 L (4.30-5.90) M/uL Hgb 10.5 L (12.0-16.0) g/dL Hct 33.7 L (36.0-46.0) % MCV 91.6 (80.0-98.0) fL MCH 28.5 (27.0-32.0) pg MCHC 31.2 (31.0-37.0) g/dL RDW Std Deviation 45.8 (28.0-62.0) fl RDW Coeff of Jeannette 14 (11.0-15.0) % Plt Count 192 (150-400) K/uL MPV 10.40 (7.40-12.00) fL Neut % (Auto) 49.2 (48.0-80.0) % Lymph % (Auto) 37.9 (16.0-40.0) % [place] % (Auto) 9.3 (0.0-15.0) % Eos % (Auto) 3.4 (0.0-7.0) % Baso % (Auto) 0.2 (0.0-1.5) % Neut # (Auto) 2.0 (1.4-5.7) K/uL Lymph # (Auto) 1.6 (0.6-2.4) K/uL [place] # (Auto) 0.4 (0.0-0.8) K/uL Eos # (Auto) 0.1 (0.0-0.7) K/uL Baso # (Auto) 0.0 (0.0-0.1) K/uL Nucleated RBC % 0.0 /100WBC Nucleated RBCs # 0 K/uL Sodium 144 (136-145) mmol/L Potassium 3.9 (3.5-5.1) mmol/L Chloride 109 H (98-107) mmol/L Carbon Dioxide 28.9 (21.0-32.0) mmol/L BUN 9 (7.0-18.0) mg/dL Creatinine 0.9 (0.6-1.0) mg/dL Est Cr Clr Drug Dosing 67.07 mL/min Estimated GFR (MDRD) > 60.0 ml/min Glucose 116 H (74-106) mg/dL POC Glucose 132 H (60-110) mg/dL Calcium 9.0 (8.5-10.1) mg/dL Magnesium 1.7 L (1.8-2.4) mg/dL Total Bilirubin 0.4 (0.2-1.0) mg/dL AST 14 L (15-37) IU/L ALT 17 (14-63) IU/L Alkaline Phosphatase 65 (46-116) U/L Total Protein 6.2 L (6.4-8.2) g/dL Albumin 3.0 L (3.4-5.0) g/dL Globulin 3.2 (2.6-4.0) g/dL Albumin/Globulin Ratio 0.9 (0.9-1.6) 10/12/20 Range/Units 11:32 WBC (4.0-11.0) K/uL RBC (4.30-5.90) M/uL Hgb (12.0-16.0) g/dL Hct (36.0-46.0) % MCV (80.0-98.0) fL MCH (27.0-32.0) pg MCHC (31.0-37.0) g/dL RDW Std Deviation (28.0-62.0) fl RDW Coeff of Jeannette (11.0-15.0) % Plt Count (150-400) K/uL MPV (7.40-12.00) fL Neut % (Auto) (48.0-80.0) % Lymph % (Auto) (16.0-40.0) % [place] % (Auto) (0.0-15.0) % Eos % (Auto) (0.0-7.0) % Baso % (Auto) (0.0-1.5) % Neut # (Auto) (1.4-5.7) K/uL Lymph # (Auto) (0.6-2.4) K/uL [place] # (Auto) (0.0-0.8) K/uL Eos # (Auto) (0.0-0.7) K/uL Baso # (Auto) (0.0-0.1) K/uL Nucleated RBC % /100WBC Nucleated RBCs # K/uL Sodium (136-145) mmol/L Potassium (3.5-5.1) mmol/L Chloride (98-107) mmol/L Carbon Dioxide (21.0-32.0) mmol/L BUN (7.0-18.0) mg/dL Creatinine (0.6-1.0) mg/dL Est Cr Clr Drug Dosing mL/min Estimated GFR (MDRD) ml/min Glucose (74-106) mg/dL POC Glucose 123 H (60-110) mg/dL Calcium (8.5-10.1) mg/dL Magnesium (1.8-2.4) mg/dL Total Bilirubin (0.2-1.0) mg/dL AST (15-37) IU/L ALT (14-63) IU/L Alkaline Phosphatase (46-116) U/L Total Protein (6.4-8.2) g/dL Albumin (3.4-5.0) g/dL Globulin (2.6-4.0) g/dL Albumin/Globulin Ratio (0.9-1.6) Med Orders - Current: Current Medications Acetaminophen (Tylenol) 650 mg PO Q4H PRN PRN Reason: Pain (Mild 1-3)/fever Albuterol/Ipratropium (Duoneb 3.0-0.5 Mg/3 Ml) 3 ml NEB Q4HRRT PRN PRN Reason: Shortness Of Breath/wheezing Last Admin: 10/12/20 09:25 Dose: 3 ml Documented by: Amlodipine Besylate (Norvasc) 10 mg PO DAILY [facility] Last Admin: 10/12/20 08:32 Dose: 10 mg Documented by: Atorvastatin Calcium (Lipitor) 40 mg PO BEDTIME [facility] Last Admin: 10/11/20 20:58 Dose: 40 mg Documented by: Dextrose/Water (Dextrose 50% In Water) 50 ml IV ASDIRECTED PRN PRN Reason: Hypoglycemia Diazepam (Valium.) 5 mg PO BID [facility] Last Admin: 10/12/20 08:33 Dose: 5 mg Documented by: Folic Acid (Folic Acid) 1 mg PO DAILY [facility] Last Admin: 10/12/20 08:32 Dose: 1 mg Documented by: Glucagon (Glucagen) 1 mg IM ASDIRECTED PRN PRN Reason: Hypoglycemia Lisinopril/HCTZ (Lisinopril-Hctz 10-12.5 Mg) 1 tab PO DAILY [facility] Last Admin: 10/12/20 08:33 Dose: 1 tab Documented by: Heparin Sodium (Porcine) (Heparin Sodium) 5,000 units SUBCUT Q12H [facility] Last Admin: 10/12/20 05:33 Dose: 5,000 units Documented by: Thiamine HCl 100 mg/ Sodium (Chloride) 101 mls @ 202 mls/hr IV DAILY [facility] Last Admin: 10/12/20 08:52 Dose: 202 mls/hr Documented by: Pantoprazole Sodium 40 mg/ (Sodium Chloride) 10 mls @ 300 mls/hr IV Q24H [facility] Last Admin: 10/11/20 18:42 Dose: 300 mls/hr Documented by: Lactated Ringer's (Ringers, Lactated) 1,000 mls @ 100 mls/hr IV ASDIRECTED [facility] Last Admin: 10/12/20 08:53 Dose: 100 mls/hr Documented by: Insulin Aspart (Novolog) 0 unit SUBCUT TIDAC [facility]; Protocol Last Admin: 10/12/20 11:37 Dose: Not Given Documented by: Lorazepam (Ativan) 0 mg IVPUSH Q4H [facility]; Protocol Last Admin: 10/12/20 10:10 Dose: Not Given Documented by: Miscellaneous Information (Remove Patch) 1 ea TRDERM DAILY [facility] Last Admin: 10/12/20 11:24 Dose: 1 ea Documented by: Montelukast Sodium (Singulair) 10 mg PO DAILY [facility] Last Admin: 10/12/20 08:47 Dose: 10 mg Documented by: Nicotine (Habitrol) 21 mg TRDERM DAILY [facility] Last Admin: 10/12/20 08:33 Dose: 21 mg Documented by: Ondansetron HCl (Zofran Odt) 4 mg PO Q4H PRN PRN Reason: nausea, able to take PO Fluticasone/Salmeterol (Advair Diskus 250-50) 1 puff INH BID [facility] Last Admin: 10/12/20 08:31 Dose: 1 puff Documented by: Sodium Chloride (Saline Flush) 10 ml FLUSH ASDIRECTED PRN PRN Reason: Keep Vein Open Last Admin: 10/10/20 13:48 Dose: 10 ml Documented by: Sodium Chloride (Saline Flush) 2.5 ml FLUSH ASDIRECTED PRN PRN Reason: Keep Vein Open Discontinued Medications Sodium Chloride (Normal Saline) 1,000 mls @ 999 mls/hr IV STAT ONE Stop: 10/10/20 14:21 Last Admin: 10/10/20 13:48 Dose: 999 mls/hr Documented by: Multivitamins/Minerals 10 ml/Thiamine HCl 100 mg/ Folic Acid 1 mg/ Sodium Chloride 1,011.2 mls @ 125 mls/hr IV ONETIME ONE Stop: 10/11/20 00:22 Last Admin: 10/10/20 17:20 Dose: 125 mls/hr Documented by: Influenza Virus Vaccine (Pharmacy To Dose - Influenza Vaccine) 1 each IM ONETIME ONE Stop: 10/10/20 20:24 Influenza Virus Vaccine (Flublok Quad [id number] Syringe) 180 mcg IM .ONCE ONE Stop: 10/11/20 09:01 Lorazepam (Ativan) 1 mg IVPUSH ONETIME ONE Stop: 10/10/20 13:22 Last Admin: 10/10/20 13:48 Dose: 1 mg Documented by: Lorazepam (Ativan) 1 mg IVPUSH ONETIME ONE Stop: 10/10/20 15:59 Last Admin: 10/10/20 16:15 Dose: 1 mg Documented by: Lorazepam (Ativan) 2 mg IVPUSH ONETIME ONE Stop: 10/11/20 16:18 Last Admin: 10/11/20 16:24 Dose: 2 mg Documented by: Potassium Chloride (Klor-Con M20) 40 meq PO ONETIME ONE Stop: 10/10/20 17:22 Last Admin: 10/10/20 18:14 Dose: 40 meq Documented by: Potassium Chloride (Klor-Con M20) 40 meq PO ONETIME ONE Stop: 10/11/20 07:45 Last Admin: 10/11/20 08:03 Dose: 40 meq Documented by: - Exam General: Alert, Oriented Neck: Supple Lungs: Clear to Auscultation, Normal Respiratory Effort Cardiovascular: Regular Rate, Regular Rhythm GI/Abdominal Exam: Soft, Non-Tender, No Distention Extremities: Non-Tender, No Pedal Edema Skin: Warm, Dry, Intact Neurological: No New Focal Deficit, Other (wide base gate, unsteady on feet, according to nursing gate been same since admission) Sepsis Event Note - Evaluation Sepsis Screening Result: No Definite Risk - Focused Exam Vital Signs: Vital Signs Temp Pulse Resp BP BP Pulse Ox 10/12/20 11:38 36.6 C 80 18 166/86 H 97 10/12/20 08:32 147/91 H 10/12/20 07:42 36.1 C 80 20 149/91 H 98 10/12/20 04:00 36.8 C 76 16 138/79 99 - Problem List Review Problem List Initiated/Reviewed/Updated: Yes - My Orders Last 24 Hours: My Active Orders 10/12/20 12:49 Magnesium Sulfate/Water [Magnesium Sulfate in Water 2 GM/50 ML] 2 gm IV ONETIME ONE - Plan Plan:: 55 yo female with pmh of stroke, DM, asthma who is admitted for ETOH detox Will continue CIWA protocol with Diazepam 5mg BID, thiamine, folic acid. Awaiting records from [place] regarding history of CVA,
[2020-10-12] MEDS ORDERED: Magnesium Sulfate/Water 2 GM/50 ML BAG IV ONE (13:00)
[2020-10-12] MEDS: Pantoprazole 40 MG in Sodium Chloride 0.9% 10 ML IV SCH (17:53)
[2020-10-12] MEDS: atorvaSTATin 40 MG Tab PO SCH (20:31)
[2020-10-13] MEDS: LORazepam 2 MG/ML SDV IVPUSH SCH ×3 (02:26→13:41)
[2020-10-13] MEDS: Lactated Ringers 1,000 ML IV SCH (05:39)
[2020-10-13] MEDS: Heparin Sodium 5,000 Units/ML Vial SUBCUT SCH ×2 (05:58→17:11)
[2020-10-13 06:42] LABS: BLOOD UREA NITROGEN,BUN 10 mg/dL (7.0-18.0); CARBON DIOXIDE,CO2 28.7 mmol/L (21.0-32.0); CHLORIDE,CL 103 mmol/L (98-107); GLUCOSE RANDOM 126 mg/dL (74-106); POTASSIUM,K 3.8 mmol/L (3.5-5.1); SODIUM,NA 141 mmol/L (136-145)
[2020-10-13] MEDS: Insulin Aspart 100 Units/ML 3 ML Pen SUBCUT SCH ×3 (07:43→17:09)
[2020-10-13] MEDS ORDERED: Magnesium Sulfate/Water 2 GM/50 ML BAG IV SCH (07:45)
[2020-10-13] MEDS: Fluticasone/Salmeterol 250-50 MCG Inhalation Powder 14/Diskus INH SCH ×2 (09:35→20:50)
[2020-10-13] MEDS: Diazepam 5 MG Tab PO SCH (09:49)
[2020-10-13] MEDS: Montelukast 10 MG Tab PO SCH (09:50)
[2020-10-13] MEDS: Nicotine 21 MG/24 Hr Patch TRDERM SCH (09:50)
[2020-10-13] MEDS: Folic Acid 1 MG Tab PO SCH (09:50)
[2020-10-13] MEDS: Lisinopril/Hydrochlorothiazide 10-12.5 MG Tab PO SCH (09:50)
[2020-10-13] MEDS: amLODIPine 5 MG Tab PO SCH (09:51)
[2020-10-13] MEDS: Thiamine 100 MG in Sodium Chloride 0.9% 100 ML IV SCH (09:52)
[2020-10-13] MEDS ORDERED: LORazepam 2 MG/ML SDV IVPUSH PRN (09:55)
--- NOTE | 2020-10-13 11:40 | PCM.PN ---
- General Info Date of Service: 10/13/20 Subjective Update: Bedside: endorses feeling shakes but denies hallucinations/seizures. Mentions good appetite and eating w.o pain Functional Status: Reports: Pain Controlled - Review of Systems General: Denies: Fever, Chills HEENT: Reports: No Symptoms Pulmonary: Reports: No Symptoms Cardiovascular: Reports: No Symptoms Gastrointestinal: Denies: Abdominal Pain, Decreased Appetite Genitourinary: Reports: No Symptoms Neurological: Reports: Dizziness. Denies: Headache, Seizure, Syncope, Trouble Speaking, Change in Speech, Gait Disturbance Psychiatric: Reports: Anxiety - Patient Data Vitals - Most Recent: Last Vital Signs Temp 97.8 F 10/13/20 07:23 Pulse 78 10/13/20 07:23 Resp 16 10/13/20 07:23 BP 175/101 H 10/13/20 09:51 Pulse Ox 99 10/13/20 07:23 Weight - Most Recent: 111.402 kg I&O - Last 24 Hours: Intake & Output 10/12/20 10/13/20 10/13/20 22:59 06:59 14:59 Intake Total 940 3576 Output Total 900 1000 Balance 40 2576 Lab Results Last 24 Hours: Laboratory Results - last 24 hr 10/12/20 10/12/20 10/13/20 Range/Units 11:32 17:01 05:08 WBC (4.0-11.0) K/uL RBC (4.30-5.90) M/uL Hgb (12.0-16.0) g/dL Hct (36.0-46.0) % MCV (80.0-98.0) fL MCH (27.0-32.0) pg MCHC (31.0-37.0) g/dL RDW Std Deviation (28.0-62.0) fl RDW Coeff of Jeannette (11.0-15.0) % Plt Count (150-400) K/uL MPV (7.40-12.00) fL Neut % (Auto) (48.0-80.0) % Lymph % (Auto) (16.0-40.0) % [place] % (Auto) (0.0-15.0) % Eos % (Auto) (0.0-7.0) % Baso % (Auto) (0.0-1.5) % Neut # (Auto) (1.4-5.7) K/uL Lymph # (Auto) (0.6-2.4) K/uL [place] # (Auto) (0.0-0.8) K/uL Eos # (Auto) (0.0-0.7) K/uL Baso # (Auto) (0.0-0.1) K/uL Nucleated RBC % /100WBC Nucleated RBCs # K/uL Sodium (136-145) mmol/L Potassium (3.5-5.1) mmol/L Chloride (98-107) mmol/L Carbon Dioxide (21.0-32.0) mmol/L BUN (7.0-18.0) mg/dL Creatinine (0.6-1.0) mg/dL Est Cr Clr Drug Dosing mL/min Estimated GFR (MDRD) ml/min Glucose (74-106) mg/dL POC Glucose 123 H 107 117 H (60-110) mg/dL Calcium (8.5-10.1) mg/dL Magnesium (1.8-2.4) mg/dL Total Bilirubin (0.2-1.0) mg/dL AST (15-37) IU/L ALT (14-63) IU/L Alkaline Phosphatase (46-116) U/L Total Protein (6.4-8.2) g/dL Albumin (3.4-5.0) g/dL Globulin (2.6-4.0) g/dL Albumin/Globulin Ratio (0.9-1.6) 10/13/20 10/13/20 Range/Units 06:03 06:03 WBC 5.07 (4.0-11.0) K/uL RBC 3.80 L (4.30-5.90) M/uL Hgb 10.8 L (12.0-16.0) g/dL Hct 34.2 L (36.0-46.0) % MCV 90.0 (80.0-98.0) fL MCH 28.4 (27.0-32.0) pg MCHC 31.6 (31.0-37.0) g/dL RDW Std Deviation 44.1 (28.0-62.0) fl RDW Coeff of Jeannette 14 (11.0-15.0) % Plt Count 202 (150-400) K/uL MPV 10.60 (7.40-12.00) fL Neut % (Auto) 52.7 (48.0-80.0) % Lymph % (Auto) 32.3 (16.0-40.0) % [place] % (Auto) 11.8 (0.0-15.0) % Eos % (Auto) 3.0 (0.0-7.0) % Baso % (Auto) 0.2 (0.0-1.5) % Neut # (Auto) 2.7 (1.4-5.7) K/uL Lymph # (Auto) 1.6 (0.6-2.4) K/uL [place] # (Auto) 0.6 (0.0-0.8) K/uL Eos # (Auto) 0.2 (0.0-0.7) K/uL Baso # (Auto) 0.0 (0.0-0.1) K/uL Nucleated RBC % 0.0 /100WBC Nucleated RBCs # 0 K/uL Sodium 141 (136-145) mmol/L Potassium 3.8 (3.5-5.1) mmol/L Chloride 103 (98-107) mmol/L Carbon Dioxide 28.7 (21.0-32.0) mmol/L BUN 10 (7.0-18.0) mg/dL Creatinine 0.9 (0.6-1.0) mg/dL Est Cr Clr Drug Dosing 67.07 mL/min Estimated GFR (MDRD) > 60.0 ml/min Glucose 126 H (74-106) mg/dL POC Glucose (60-110) mg/dL Calcium 9.2 (8.5-10.1) mg/dL Magnesium 1.5 L (1.8-2.4) mg/dL Total Bilirubin 0.4 (0.2-1.0) mg/dL AST 15 (15-37) IU/L ALT 20 (14-63) IU/L Alkaline Phosphatase 61 (46-116) U/L Total Protein 6.3 L (6.4-8.2) g/dL Albumin 3.0 L (3.4-5.0) g/dL Globulin 3.3 (2.6-4.0) g/dL Albumin/Globulin Ratio 0.9 (0.9-1.6) Frank Results Last 24 Hours: Microbiology 10/11/20 05:45 Urine Culture - Final Urine, Clean Catch MIXED LEILANI 10,000-100,000 CFU/ML 10/12/20 17:00 Stool Occult Blood (FRANK) - Final Stool / Feces NEGATIVE OCCULT BLOOD REFERENCE RANGE: NEGATIVE Med Orders - Current: Current Medications Acetaminophen (Tylenol) 650 mg PO Q4H PRN PRN Reason: Pain (Mild 1-3)/fever Albuterol/Ipratropium (Duoneb 3.0-0.5 Mg/3 Ml) 3 ml NEB Q4HRRT PRN PRN Reason: Shortness Of Breath/wheezing Last Admin: 10/12/20 18:30 Dose: 3 ml Documented by: Amlodipine Besylate (Norvasc) 10 mg PO DAILY [facility] Last Admin: 10/13/20 09:51 Dose: 10 mg Documented by: Atorvastatin Calcium (Lipitor) 40 mg PO BEDTIME [facility] Last Admin: 10/12/20 20:31 Dose: 40 mg Documented by: Dextrose/Water (Dextrose 50% In Water) 50 ml IV ASDIRECTED PRN PRN Reason: Hypoglycemia Folic Acid (Folic Acid) 1 mg PO DAILY [facility] Last Admin: 10/13/20 09:50 Dose: 1 mg Documented by: Glucagon (Glucagen) 1 mg IM ASDIRECTED PRN PRN Reason: Hypoglycemia Lisinopril/HCTZ (Lisinopril-Hctz 10-12.5 Mg) 1 tab PO DAILY [facility] Last Admin: 10/13/20 09:50 Dose: 1 tab Documented by: Heparin Sodium (Porcine) (Heparin Sodium) 5,000 units SUBCUT Q12H [facility] Last Admin: 10/13/20 05:58 Dose: 5,000 units Documented by: Thiamine HCl 100 mg/ Sodium (Chloride) 101 mls @ 202 mls/hr IV DAILY [facility] Last Admin: 10/13/20 09:52 Dose: 202 mls/hr Documented by: Pantoprazole Sodium 40 mg/ (Sodium Chloride) 10 mls @ 300 mls/hr IV Q24H [facility] Last Admin: 10/12/20 17:53 Dose: 300 mls/hr Documented by: Magnesium Sulfate (Magnesium Sulfate In Water 2 Gm/50 Ml) 2 gm in 50 mls @ 50 mls/hr IV ONETIME [facility] Insulin Aspart (Novolog) 0 unit SUBCUT TIDAC [facility]; Protocol Last Admin: 10/13/20 07:43 Dose: Not Given Documented by: Lorazepam (Ativan) 0 mg IVPUSH Q4H PRN; Protocol PRN Reason: CIWAA Miscellaneous Information (Remove Patch) 1 ea TRDERM DAILY [facility] Last Admin: 10/13/20 09:51 Dose: 1 ea Documented by: Montelukast Sodium (Singulair) 10 mg PO DAILY [facility] Last Admin: 10/13/20 09:50 Dose: 10 mg Documented by: Nicotine (Habitrol) 21 mg TRDERM DAILY [facility] Last Admin: 10/13/20 09:50 Dose: 21 mg Documented by: Ondansetron HCl (Zofran Odt) 4 mg PO Q4H PRN PRN Reason: nausea, able to take PO Fluticasone/Salmeterol (Advair Diskus 250-50) 1 puff INH BID [facility] Last Admin: 10/13/20 09:35 Dose: 1 puff Documented by: Sodium Chloride (Saline Flush) 10 ml FLUSH ASDIRECTED PRN PRN Reason: Keep Vein Open Last Admin: 10/10/20 13:48 Dose: 10 ml Documented by: Sodium Chloride (Saline Flush) 2.5 ml FLUSH ASDIRECTED PRN PRN Reason: Keep Vein Open Discontinued Medications Diazepam (Valium.) 5 mg PO BID [facility] Last Admin: 10/13/20 09:49 Dose: 5 mg Documented by: Sodium Chloride (Normal Saline) 1,000 mls @ 999 mls/hr IV STAT ONE Stop: 10/10/20 14:21 Last Admin: 10/10/20 13:48 Dose: 999 mls/hr Documented by: Multivitamins/Minerals 10 ml/Thiamine HCl 100 mg/ Folic Acid 1 mg/ Sodium Chloride 1,011.2 mls @ 125 mls/hr IV ONETIME ONE Stop: 10/11/20 00:22 Last Admin: 10/10/20 17:20 Dose: 125 mls/hr Documented by: Lactated Ringer's (Ringers, Lactated) 1,000 mls @ 100 mls/hr IV ASDIRECTED [facility] Last Admin: 10/13/20 05:39 Dose: 100 mls/hr Documented by: Magnesium Sulfate (Magnesium Sulfate In Water 2 Gm/50 Ml) 2 gm in 50 mls @ 50 mls/hr IV ONETIME ONE Stop: 10/12/20 13:59 Last Admin: 10/12/20 13:45 Dose: 50 mls/hr Documented by: Influenza Virus Vaccine (Pharmacy To Dose - Influenza Vaccine) 1 each IM ONETIME ONE Stop: 10/10/20 20:24 Influenza Virus Vaccine (Flublok Quad [id number] Syringe) 180 mcg IM .ONCE ONE Stop: 10/11/20 09:01 Lorazepam (Ativan) 1 mg IVPUSH ONETIME ONE Stop: 10/10/20 13:22 Last Admin: 10/10/20 13:48 Dose: 1 mg Documented by: Lorazepam (Ativan) 1 mg IVPUSH ONETIME ONE Stop: 10/10/20 15:59 Last Admin: 10/10/20 16:15 Dose: 1 mg Documented by: Lorazepam (Ativan) 0 mg IVPUSH Q4H [facility]; Protocol Last Admin: 10/13/20 06:17 Dose: Not Given Documented by: Lorazepam (Ativan) 2 mg IVPUSH ONETIME ONE Stop: 10/11/20 16:18 Last Admin: 10/11/20 16:24 Dose: 2 mg Documented by: Potassium Chloride (Klor-Con M20) 40 meq PO ONETIME ONE Stop: 10/10/20 17:22 Last Admin: 10/10/20 18:14 Dose: 40 meq Documented by: Potassium Chloride (Klor-Con M20) 40 meq PO ONETIME ONE Stop: 10/11/20 07:45 Last Admin: 10/11/20 08:03 Dose: 40 meq Documented by: - Exam Quality Assessment: No: Supplemental Oxygen General: Alert, Oriented, Cooperative HEENT: EOMI, Mucous Membr. Moist/Embarrass Neck: Supple Lungs: Clear to Auscultation, Normal Respiratory Effort Cardiovascular: Regular Rate, Regular Rhythm GI/Abdominal Exam: Soft, Non-Tender Back Exam: Full Range of Motion Neurological: No New Focal Deficit Psy/Mental Status: Alert, Anxious Sepsis Event Note - Evaluation Sepsis Screening Result: No Definite Risk - Focused Exam Vital Signs: Vital Signs Temp Pulse Resp BP BP Pulse Ox 10/13/20 09:51 175/101 H 10/13/20 07:23 97.8 F 78 16 175/101 H 99 10/13/20 04:00 97.3 F 70 18 157/88 H 95 10/13/20 00:00 97.8 F 84 16 166/78 H 98 - Problem List & Annotations (1) Alcohol withdrawal SNOMED Code(s): 302579355 Code(s): F10.239 - ALCOHOL DEPENDENCE WITH WITHDRAWAL, UNSPECIFIED Status: Acute Current Visit: No Qualifiers: Complication of substance-induced condition: uncomplicated Qualified Code(s): F10.230 - Alcohol dependence with withdrawal, uncomplicated (2) Asthma SNOMED Code(s): 048361180 Code(s): J45.909 - UNSPECIFIED ASTHMA, UNCOMPLICATED Status: Acute Priority: Medium Current Visit: No Qualifiers: Asthma severity: mild Asthma persistence: intermittent Asthma complication type: uncomplicated Qualified Code(s): J45.20 - Mild intermittent asthma, uncomplicated - Problem List Review Problem List Initiated/Reviewed/Updated: Yes - My Orders Last 24 Hours: My Active Orders 10/13/20 07:45 Magnesium Sulfate/Water [Magnesium Sulfate in Water 2 GM/50 ML] 2 gm in 50 ml IV ONETIME 10/13/20 11:29 Communication Order [RC] DAILY 10/14/20 05:11 CBC WITH AUTO DIFF [HEME] AM COMPREHENSIVE METABOLIC PN,CMP [CHEM] AM MAGNESIUM [CHEM] AM - Plan Plan:: 55 yo female with pmh of stroke, DM, asthma who is admitted for ETOH detox Patient received Todays dose of Diazepam; will stop Diazepam and continue Ativan/CIWAA protocol; Reevaluate in AM Discontinue IV-fluids and encourage PO intake Continue Thiamine and folate.
[2020-10-13] MEDS: Pantoprazole 40 MG in Sodium Chloride 0.9% 10 ML IV SCH (17:10)
[2020-10-13] MEDS: Albuterol/Ipratropium 3.0-0.5 MG/3 ML Neb Soln NEB PRN (17:25)
[2020-10-13] MEDS: Acetaminophen 325 MG Tab PO PRN (17:57)
[2020-10-13] MEDS: atorvaSTATin 40 MG Tab PO SCH (20:24)
[2020-10-14] MEDS: Heparin Sodium 5,000 Units/ML Vial SUBCUT SCH ×2 (05:29→17:53)
[2020-10-14] MEDS: Insulin Aspart 100 Units/ML 3 ML Pen SUBCUT SCH ×3 (07:49→16:45)
[2020-10-14 08:41] LABS: BLOOD UREA NITROGEN,BUN 14 mg/dL (7.0-18.0); CARBON DIOXIDE,CO2 30.2 mmol/L (21.0-32.0); CHLORIDE,CL 105 mmol/L (98-107); GLUCOSE RANDOM 121 mg/dL (74-106); POTASSIUM,K 4.1 mmol/L (3.5-5.1); SODIUM,NA 141 mmol/L (136-145)
[2020-10-14] MEDS: Montelukast 10 MG Tab PO SCH (09:11)
[2020-10-14] MEDS: Nicotine 21 MG/24 Hr Patch TRDERM SCH (09:11)
[2020-10-14] MEDS: Albuterol/Ipratropium 3.0-0.5 MG/3 ML Neb Soln NEB PRN ×2 (09:12→20:43)
[2020-10-14] MEDS: amLODIPine 5 MG Tab PO SCH (09:12)
[2020-10-14] MEDS: Folic Acid 1 MG Tab PO SCH (09:12)
[2020-10-14] MEDS: Fluticasone/Salmeterol 250-50 MCG Inhalation Powder 14/Diskus INH SCH ×2 (09:12→20:34)
[2020-10-14] MEDS: Lisinopril/Hydrochlorothiazide 10-12.5 MG Tab PO SCH (09:12)
--- NOTE | 2020-10-14 09:53 | PCM.PN ---
- General Info Date of Service: 10/14/20 Admission Dx/Problem (Free Text): Admission Diagnosis/Problem Admission Diagnosis/Problem Alcohol withdrawal syndrome Subjective Update: Reports she is continuing to feel tremulous today and overall not feeling well and did not want to go home. Denies any chest pain shortness of breath abdominal pain no diarrhea or constipation. She is eating and drinking well. She reports she has been up walking but nursing reports they have not seen her very often ambulating. She was encouraged to ambulate more today and will be discharged in the morning. She verbalized understanding of this. Functional Status: Reports: Pain Controlled, Tolerating Diet, Ambulating, Urinating - Review of Systems General: Reports: Weakness, Fatigue HEENT: Reports: No Symptoms. Denies: Headaches, Sore Throat, Visual Changes Pulmonary: Reports: Wheezing. Denies: Shortness of Breath Cardiovascular: Reports: No Symptoms. Denies: Chest Pain, Dyspnea on Exertion Gastrointestinal: Reports: No Symptoms. Denies: Abdominal Pain, Nausea, Vomiting Genitourinary: Reports: No Symptoms. Denies: Dysuria, Frequency Musculoskeletal: Reports: No Symptoms Skin: Reports: No Symptoms Neurological: Reports: Tremors Psychiatric: Reports: No Symptoms - Patient Data Vitals - Most Recent: Last Vital Signs Temp 96.2 F L 10/14/20 07:18 Pulse 72 10/14/20 07:18 Resp 20 10/14/20 07:18 BP 139/76 10/14/20 09:12 Pulse Ox 100 10/14/20 07:18 Weight - Most Recent: 111.402 kg I&O - Last 24 Hours: Intake & Output 10/13/20 10/14/20 10/14/20 22:59 06:59 14:59 Intake Total 790 890 Output Total 3150 200 Balance -2360 690 Lab Results Last 24 Hours: Laboratory Results - last 24 hr 10/13/20 10/13/20 10/14/20 Range/Units 12:17 16:22 06:32 WBC 5.07 (4.0-11.0) K/uL RBC 3.90 L (4.30-5.90) M/uL Hgb 11.1 L (12.0-16.0) g/dL Hct 35.2 L (36.0-46.0) % MCV 90.3 (80.0-98.0) fL MCH 28.5 (27.0-32.0) pg MCHC 31.5 (31.0-37.0) g/dL RDW Std Deviation 45.6 (28.0-62.0) fl RDW Coeff of Jeannette 14 (11.0-15.0) % Plt Count 210 (150-400) K/uL MPV 11.20 (7.40-12.00) fL Neut % (Auto) 52.5 (48.0-80.0) % Lymph % (Auto) 32.5 (16.0-40.0) % Martin % (Auto) 11.2 (0.0-15.0) % Eos % (Auto) 3.4 (0.0-7.0) % Baso % (Auto) 0.4 (0.0-1.5) % Neut # (Auto) 2.7 (1.4-5.7) K/uL Lymph # (Auto) 1.7 (0.6-2.4) K/uL Martin # (Auto) 0.6 (0.0-0.8) K/uL Eos # (Auto) 0.2 (0.0-0.7) K/uL Baso # (Auto) 0.0 (0.0-0.1) K/uL Nucleated RBC % 0.0 /100WBC Nucleated RBCs # 0 K/uL Sodium (136-145) mmol/L Potassium (3.5-5.1) mmol/L Chloride (98-107) mmol/L Carbon Dioxide (21.0-32.0) mmol/L BUN (7.0-18.0) mg/dL Creatinine (0.6-1.0) mg/dL Est Cr Clr Drug Dosing mL/min Estimated GFR (MDRD) ml/min Glucose (74-106) mg/dL POC Glucose 139 H 162 H (60-110) mg/dL Calcium (8.5-10.1) mg/dL Magnesium (1.8-2.4) mg/dL Total Bilirubin (0.2-1.0) mg/dL AST (15-37) IU/L ALT (14-63) IU/L Alkaline Phosphatase (46-116) U/L Total Protein (6.4-8.2) g/dL Albumin (3.4-5.0) g/dL Globulin (2.6-4.0) g/dL Albumin/Globulin Ratio (0.9-1.6) 10/14/20 10/14/20 Range/Units 06:32 06:37 WBC (4.0-11.0) K/uL RBC (4.30-5.90) M/uL Hgb (12.0-16.0) g/dL Hct (36.0-46.0) % MCV (80.0-98.0) fL MCH (27.0-32.0) pg MCHC (31.0-37.0) g/dL RDW Std Deviation (28.0-62.0) fl RDW Coeff of Jeannette (11.0-15.0) % Plt Count (150-400) K/uL MPV (7.40-12.00) fL Neut % (Auto) (48.0-80.0) % Lymph % (Auto) (16.0-40.0) % Martin % (Auto) (0.0-15.0) % Eos % (Auto) (0.0-7.0) % Baso % (Auto) (0.0-1.5) % Neut # (Auto) (1.4-5.7) K/uL Lymph # (Auto) (0.6-2.4) K/uL Martin # (Auto) (0.0-0.8) K/uL Eos # (Auto) (0.0-0.7) K/uL Baso # (Auto) (0.0-0.1) K/uL Nucleated RBC % /100WBC Nucleated RBCs # K/uL Sodium 141 (136-145) mmol/L Potassium 4.1 (3.5-5.1) mmol/L Chloride 105 (98-107) mmol/L Carbon Dioxide 30.2 (21.0-32.0) mmol/L BUN 14 (7.0-18.0) mg/dL Creatinine 1.0 (0.6-1.0) mg/dL Est Cr Clr Drug Dosing 60.36 mL/min Estimated GFR (MDRD) > 60.0 ml/min Glucose 121 H (74-106) mg/dL POC Glucose 171 H (60-110) mg/dL Calcium 9.4 (8.5-10.1) mg/dL Magnesium 2.2 (1.8-2.4) mg/dL Total Bilirubin 0.4 (0.2-1.0) mg/dL AST 40 H (15-37) IU/L ALT 30 (14-63) IU/L Alkaline Phosphatase 61 (46-116) U/L Total Protein 6.6 (6.4-8.2) g/dL Albumin 3.1 L (3.4-5.0) g/dL Globulin 3.5 (2.6-4.0) g/dL Albumin/Globulin Ratio 0.9 (0.9-1.6) Frank Results Last 24 Hours: Microbiology 10/11/20 05:45 Urine Culture - Final Urine, Clean Catch MIXED LEILANI 10,000-100,000 CFU/ML Med Orders - Current: Current Medications Acetaminophen (Tylenol) 650 mg PO Q4H PRN PRN Reason: Pain (Mild 1-3)/fever Last Admin: 10/13/20 17:57 Dose: 650 mg Documented by: Albuterol/Ipratropium (Duoneb 3.0-0.5 Mg/3 Ml) 3 ml NEB Q4HRRT PRN PRN Reason: Shortness Of Breath/wheezing Last Admin: 10/14/20 09:12 Dose: 3 ml Documented by: Amlodipine Besylate (Norvasc) 10 mg PO DAILY [facility] Last Admin: 10/14/20 09:12 Dose: 10 mg Documented by: Atorvastatin Calcium (Lipitor) 40 mg PO BEDTIME [facility] Last Admin: 10/13/20 20:24 Dose: 40 mg Documented by: Dextrose/Water (Dextrose 50% In Water) 50 ml IV ASDIRECTED PRN PRN Reason: Hypoglycemia Folic Acid (Folic Acid) 1 mg PO DAILY [facility] Last Admin: 10/14/20 09:12 Dose: 1 mg Documented by: Glucagon (Glucagen) 1 mg IM ASDIRECTED PRN PRN Reason: Hypoglycemia Lisinopril/HCTZ (Lisinopril-Hctz 10-12.5 Mg) 1 tab PO DAILY [facility] Last Admin: 10/14/20 09:12 Dose: 1 tab Documented by: Heparin Sodium (Porcine) (Heparin Sodium) 5,000 units SUBCUT Q12H [facility] Last Admin: 10/14/20 05:29 Dose: 5,000 units Documented by: Thiamine HCl 100 mg/ Sodium (Chloride) 101 mls @ 202 mls/hr IV DAILY [facility] Last Admin: 10/13/20 09:52 Dose: 202 mls/hr Documented by: Insulin Aspart (Novolog) 0 unit SUBCUT TIDAC [facility]; Protocol Last Admin: 10/14/20 07:49 Dose: 1 unit Documented by: Lorazepam (Ativan) 0 mg IVPUSH Q4H PRN; Protocol PRN Reason: CIWAA Last Admin: 10/13/20 20:23 Dose: 1 mg Documented by: Miscellaneous Information (Remove Patch) 1 ea TRDERM DAILY [facility] Last Admin: 10/13/20 09:51 Dose: 1 ea Documented by: Montelukast Sodium (Singulair) 10 mg PO DAILY [facility] Last Admin: 10/14/20 09:11 Dose: 10 mg Documented by: Nicotine (Habitrol) 21 mg TRDERM DAILY [facility] Last Admin: 10/14/20 09:11 Dose: 21 mg Documented by: Ondansetron HCl (Zofran Odt) 4 mg PO Q4H PRN PRN Reason: nausea, able to take PO Pantoprazole Sodium (Protonix) 40 mg PO DAILY@1730 [facility] Fluticasone/Salmeterol (Advair Diskus 250-50) 1 puff INH BID [facility] Last Admin: 10/14/20 09:12 Dose: 1 puff Documented by: Sodium Chloride (Saline Flush) 10 ml FLUSH ASDIRECTED PRN PRN Reason: Keep Vein Open Last Admin: 10/10/20 13:48 Dose: 10 ml Documented by: Sodium Chloride (Saline Flush) 2.5 ml FLUSH ASDIRECTED PRN PRN Reason: Keep Vein Open Discontinued Medications Diazepam (Valium.) 5 mg PO BID [facility] Last Admin: 10/13/20 09:49 Dose: 5 mg Documented by: Sodium Chloride (Normal Saline) 1,000 mls @ 999 mls/hr IV STAT ONE Stop: 10/10/20 14:21 Last Admin: 10/10/20 13:48 Dose: 999 mls/hr Documented by: Multivitamins/Minerals 10 ml/Thiamine HCl 100 mg/ Folic Acid 1 mg/ Sodium Chlo ride 1,011.2 mls @ 125 mls/hr IV ONETIME ONE Stop: 10/11/20 00:22 Last Admin: 10/10/20 17:20 Dose: 125 mls/hr Documented by: Pantoprazole Sodium 40 mg/ (Sodium Chloride) 10 mls @ 300 mls/hr IV Q24H [facility] Last Admin: 10/13/20 17:10 Dose: 300 mls/hr Documented by: Lactated Ringer's (Ringers, Lactated) 1,000 mls @ 100 mls/hr IV ASDIRECTED [facility] Last Admin: 10/13/20 05:39 Dose: 100 mls/hr Documented by: Magnesium Sulfate (Magnesium Sulfate In Water 2 Gm/50 Ml) 2 gm in 50 mls @ 50 mls/hr IV ONETIME ONE Stop: 10/12/20 13:59 Last Admin: 10/12/20 13:45 Dose: 50 mls/hr Documented by: Magnesium Sulfate (Magnesium Sulfate In Water 2 Gm/50 Ml) 2 gm in 50 mls @ 50 mls/hr IV ONETIME [facility] Last Admin: 10/14/20 01:12 Dose: 50 mls/hr Documented by: Influenza Virus Vaccine (Pharmacy To Dose - Influenza Vaccine) 1 each IM ONETIME ONE Stop: 10/10/20 20:24 Influenza Virus Vaccine (Flublok Quad [id number] Syringe) 180 mcg IM .ONCE ONE Stop: 10/11/20 09:01 Lorazepam (Ativan) 1 mg IVPUSH ONETIME ONE Stop: 10/10/20 13:22 Last Admin: 10/10/20 13:48 Dose: 1 mg Documented by: Lorazepam (Ativan) 1 mg IVPUSH ONETIME ONE Stop: 10/10/20 15:59 Last Admin: 10/10/20 16:15 Dose: 1 mg Documented by: Lorazepam (Ativan) 0 mg IVPUSH Q4H [facility]; Protocol Last Admin: 10/13/20 13:41 Dose: Not Given Documented by: Lorazepam (Ativan) 2 mg IVPUSH ONETIME ONE Stop: 10/11/20 16:18 Last Admin: 10/11/20 16:24 Dose: 2 mg Documented by: Potassium Chloride (Klor-Con M20) 40 meq PO ONETIME ONE Stop: 10/10/20 17:22 Last Admin: 10/10/20 18:14 Dose: 40 meq Documented by: Potassium Chloride (Klor-Con M20) 40 meq PO ONETIME ONE Stop: 10/11/20 07:45 Last Admin: 10/11/20 08:03 Dose: 40 meq Documented by: - Exam General: Alert, Oriented, Cooperative, No Acute Distress HEENT: Pupils Equal, Pupils Reactive Lungs: Normal Respiratory Effort, Wheezing (Significant inspiratory and expirat ory wheezing) Cardiovascular: Regular Rate, Regular Rhythm GI/Abdominal Exam: Normal Bowel Sounds, Soft, Non-Tender Extremities: Normal Inspection, Normal Range of Motion, Non-Tender, No Pedal Edema Wound/Incisions: Healing Well Neurological: Other (Tremor noted only to right hand and it appeared to be fabricated mild undulations noted to tongue.) Psy/Mental Status: Alert, Normal Affect, Normal Mood Sepsis Event Note - Evaluation Sepsis Screening Result: No Definite Risk - Focused Exam Vital Signs: Vital Signs Temp Pulse Resp BP BP Pulse Ox 10/14/20 09:12 139/76 10/14/20 07:18 96.2 F L 72 20 153/99 H 100 10/14/20 04:00 97.1 F 69 18 130/83 96 10/14/20 00:00 97.8 F 82 18 134/62 100 - Problem List & Annotations (1) Alcohol withdrawal SNOMED Code(s): 901503877 Code(s): F10.239 - ALCOHOL DEPENDENCE WITH WITHDRAWAL, UNSPECIFIED Status: Acute Current Visit: No Qualifiers: Complication of substance-induced condition: uncomplicated Qualified Code(s): F10.230 - Alcohol dependence with withdrawal, uncomplicated (2) Dizziness SNOMED Code(s): 902397028, 776953988 Code(s): R42 - DIZZINESS AND GIDDINESS Status: Acute Current Visit: No (3) Anxiety SNOMED Code(s): 06321224 Code(s): F41.9 - ANXIETY DISORDER, UNSPECIFIED Status: Chronic Current Visit: No (4) History of alcohol abuse SNOMED Code(s): 432075947 Code(s): F10.11 - ALCOHOL ABUSE, IN REMISSION Status: Chronic Current Visit: No (5) History of asthma SNOMED Code(s): 730343471 Code(s): Z87.09 - PERSONAL HISTORY OF OTHER DISEASES OF THE RESPIRATORY SYSTEM Status: Chronic Current Visit: No (6) History of hypertension SNOMED Code(s): 303404086 Code(s): Z86.79 - PERSONAL HISTORY OF OTHER DISEASES OF THE CIRCULATORY SYSTEM Status: Chronic Current Visit: No (7) Medical non-compliance SNOMED Code(s): 928203818 Code(s): Z91.19 - PATIENT'S NONCOMPLIANCE W OTH MEDICAL TREATMENT AND REGIMEN Status: Chronic Current Visit: No (8) Diabetes mellitus type 2 in obese SNOMED Code(s): 60981617 Code(s): E11.9 - TYPE 2 DIABETES MELLITUS WITHOUT COMPLICATIONS; E66.9 - OBESITY, UNSPECIFIED Status: Chronic Priority: High Current Visit: No Annotation/Comment:: A1C 5.3% (9) Obesity (BMI 30-39.9) SNOMED Code(s): 331474502, 673168822 Code(s): E66.9 - OBESITY, UNSPECIFIED Status: Chronic Priority: Medium Current Visit: No - Problem List Review Problem List Initiated/Reviewed/Updated: Yes - My Orders Last 24 Hours: My Active Orders 10/13/20 09:55 LORazepam [Ativan] See Protocol IVPUSH Q4H PRN - Plan Plan:: 55 yo female with pmh of stroke, DM, asthma who is admitted for ETOH detox 1. Alcohol withdrawal -Last dose of Ativan given 10/13/2020 at 2030 no diazepam ordered. -Continue CIWA protocol with Ativan as needed -Thiamine and folic acid supplementation -Encourage ambulation at least 3 times a day in the hallway 2. History of hypertension/CVA -Continue Norvasc. Lisinopril hydrochlorothiazide and Lipitor -we will add aspirin 81 daily 3. DM type II -Continue NovoLog sliding scale 3 times daily AC 4. Asthma -Continue Advair and Singulair -Given as needed DuoNeb this morning due to significant wheezing VTE prophylaxis: Heparin CODE STATUS: Full code Dispo: Likely discharge in a.m.
[2020-10-14] MEDS: Thiamine 100 MG in Sodium Chloride 0.9% 100 ML IV SCH (10:39)
[2020-10-14] MEDS: Aspirin 81 MG Tab.Chew PO SCH (11:39)
[2020-10-14] MEDS: Acetaminophen 325 MG Tab PO PRN (16:11)
[2020-10-14] MEDS ORDERED: Pantoprazole 40 MG Tab.CR PO SCH (17:30)
[2020-10-14] MEDS: atorvaSTATin 40 MG Tab PO SCH (20:34)
[2020-10-15] MEDS: Heparin Sodium 5,000 Units/ML Vial SUBCUT SCH (05:46)
[2020-10-15] MEDS: Insulin Aspart 100 Units/ML 3 ML Pen SUBCUT SCH (07:04)
[2020-10-15 07:10] LABS: BLOOD UREA NITROGEN,BUN 19 mg/dL (7.0-18.0); CARBON DIOXIDE,CO2 28.6 mmol/L (21.0-32.0); CHLORIDE,CL 105 mmol/L (98-107); GLUCOSE RANDOM 139 mg/dL (74-106); POTASSIUM,K 4.1 mmol/L (3.5-5.1); SODIUM,NA 141 mmol/L (136-145)
[2020-10-15 07:34] VITALS: BP 137/83; PULSE 77
[2020-10-15] MEDS: Nicotine 21 MG/24 Hr Patch TRDERM SCH (08:39)
[2020-10-15] MEDS: Aspirin 81 MG Tab.Chew PO SCH (08:39)
[2020-10-15] MEDS: Lisinopril/Hydrochlorothiazide 10-12.5 MG Tab PO SCH (08:40)
[2020-10-15] MEDS: Folic Acid 1 MG Tab PO SCH (08:40)
[2020-10-15] MEDS: amLODIPine 5 MG Tab PO SCH (08:40)
[2020-10-15] MEDS: Montelukast 10 MG Tab PO SCH (08:40)
[2020-10-15] MEDS ORDERED: FLU VACC QS2020-21(6MOS UP)/PF 60 MCG/0.5 ML SYRINGE IM ONE (09:00)
[2020-10-15] MEDS: Fluticasone/Salmeterol 250-50 MCG Inhalation Powder 14/Diskus INH SCH (09:04)
[2020-10-15] MEDS: Albuterol/Ipratropium 3.0-0.5 MG/3 ML Neb Soln NEB PRN (09:04)
[2020-10-15] MEDS: Thiamine 100 MG in Sodium Chloride 0.9% 100 ML IV SCH (09:05)
[2020-10-15] MEDS ORDERED: FLU VAC QV 2020(18YR UP)RCM/PF 180 MCG/0.5 ML SYRINGE IM ONE (11:00)
--- NOTE | 2020-10-15 11:20 | PCM.DCSUM1 ---
Discharge Summary - Hospital Course Brief History: Patient is a 55-year-old female with significant past medical history of severe alcohol use disorder requiring inpatient treatment 4 months prior, type 2 diabetes, asthma, Stroke; presenting with acute alcohol withdrawal symptoms including anxiety, tremulousness nausea and general malaise. Patient endorsed to ER provider drinking since discharge from inpatient alcohol treatment facility 4 months prior. Patient was brought into the ED via EMS. ED course: Chest x-ray: No acute cardiopulmonary pathology noted. Alcohol level less than 3. Covid negative. Lipase 67. CIWA score 8. Patient was given 1 banana bag and given Ativan per CIWA protocol. Bedside: Bedside endorses drinking a "1/5th" of vodka daily and smoking 1/3 PPD. Endorses last drink was last night around dinner. Denies hx. of seizure and or hallucinations. Does mentions to me having had a stroke 8-mos prior; unsure of etiology, but mentions requiring extensive rehab including need to relearn speech and walking. pt otherwise does c.o mild abdominal discomfort at this time. Diagnosis: Stroke: No - Discharge Data Discharge Date: 10/15/20 Discharge Disposition: Home, Self-Care 01 Condition: Good - Referral to Home Health Primary Care Physician: Ken Hand MD - Discharge Diagnosis/Problem(s) (1) Alcohol withdrawal SNOMED Code(s): 471703340 ICD Code: F10.239 - ALCOHOL DEPENDENCE WITH WITHDRAWAL, UNSPECIFIED Status: Acute Qualifiers: Complication of substance-induced condition: uncomplicated Qualified Code(s): F10.230 - Alcohol dependence with withdrawal, uncomplicated (2) Dizziness SNOMED Code(s): 916625306, 072584169 ICD Code: R42 - DIZZINESS AND GIDDINESS Status: Acute (3) Anxiety SNOMED Code(s): 73912616 ICD Code: F41.9 - ANXIETY DISORDER, UNSPECIFIED Status: Chronic (4) History of alcohol abuse SNOMED Code(s): 395770811 ICD Code: F10.11 - ALCOHOL ABUSE, IN REMISSION Status: Chronic (5) History of asthma SNOMED Code(s): 399282673 ICD Code: Z87.09 - PERSONAL HISTORY OF OTHER DISEASES OF THE RESPIRATORY SYSTEM Status: Chronic (6) History of hypertension SNOMED Code(s): 950331111 ICD Code: Z86.79 - PERSONAL HISTORY OF OTHER DISEASES OF THE CIRCULATORY SYSTEM Status: Chronic (7) Medical non-compliance SNOMED Code(s): 694460270 ICD Code: Z91.19 - PATIENT'S NONCOMPLIANCE W OTH MEDICAL TREATMENT AND REGIMEN Status: Chronic (8) Diabetes mellitus type 2 in obese SNOMED Code(s): 36933682 ICD Code: E11.9 - TYPE 2 DIABETES MELLITUS WITHOUT COMPLICATIONS; E66.9 - OBESITY, UNSPECIFIED Status: Chronic Priority: High Problem Details: A1C 5.3% (9) Obesity (BMI 30-39.9) SNOMED Code(s): 290525056, 086033086 ICD Code: E66.9 - OBESITY, UNSPECIFIED Status: Chronic Priority: Medium - Patient Summary/Data Consults: Consultations 10/10/20 17:13 PT Evaluation and Treatment [CONS] Routine Hospital Course: Admitting diagnosis: Alcohol withdrawal Discharge diagnoses: Alcohol withdrawal Other PMH: Type 2 diabetes Asthma CVA For he was admitted secondary to acute alcohol withdrawal. She was treated with scheduled benzodiazepine, Valium along with intermittent Ativan for CIWAA scores. She was slowly tapered off Valium and continued to do well. See was for the last 24 hours have been well controlled with no benzodiazepines. CIWAA scores 0-2 daily. During her stay blood pressures and blood sugars were well controlled. She had no electrolyte abnormalities. Today she is feeling much improved and was stressed and eager for discharge this morning on rounds. She requested blood pressure medications to be refilled. These was refilled along with albuterol inhaler. She denies any concerns she will have follow-up with PCP in 1 week. She was counseled on staying away from alcohol and reports she will try attend AA meetings. She is to return to ER or clinic if concerns should arise sooner. - Patient Instructions Diet: Heart Healthy Diet, Diabetic Diet Activity: No Strenuous Activities, Rest and Relax Today Driving: Do Not Drive Showering/Bathing: May Shower Notify Provider of: Fever, Increased Pain, Swelling and Redness, Drainage, Nausea and/or Vomiting Other/Special Instructions: Give informatin regarding AA meetings and Human Services outpatient resources - Discharge Plan *PRESCRIPTION DRUG MONITORING PROGRAM REVIEWED*: Not Applicable *COPY OF PRESCRIPTION DRUG MONITORING REPORT IN PATIENT TREVOR: Not Applicable Prescriptions/Med Rec: Folic Acid 1 mg PO BEDTIME #30 tab Lisinopril/Hydrochlorothiazide [Lisinopril-HCTZ 10-12.5 MG] 10 - 12.5 mg PO PHILL Y #30 tab amLODIPine [Norvasc] 10 mg PO DAILY #60 tablet Albuterol [Ventolin HFA] 2 puff INH Q4HR PRN #1 inhaler PRN Reason: Shortness Of Breath Thiamine [Vitamin B-1] 100 mg PO BEDTIME #30 tab Home Medications: Home Meds atorvaSTATin [Lipitor] 40 mg PO BEDTIME 90 Days #30 tab 04/18/18 [Rx] Glimepiride [Amaryl] 2 mg PO DAILY 07/22/18 [History] metFORMIN HCl [Metformin HCl] 500 mg PO BID 06/23/19 [History] Albuterol/Ipratropium [DuoNeb 3.0-0.5 MG/3 ML] 3 ml NEB Q6H PRN #60 neb 06/24/19 [Rx] Montelukast Sodium 10 mg PO DAILY 04/06/20 [History] Fluticasone Propion/Salmeterol [Fluticasone-Salmeterol 250-50] 1 inh IH BID #1 04/07/20 [Rx] Albuterol [Ventolin HFA] 2 puff INH Q4HR PRN #1 inhaler 10/15/20 [Rx] Folic Acid 1 mg PO BEDTIME #30 tab 10/15/20 [Rx] Lisinopril/Hydrochlorothiazide [Lisinopril-HCTZ 10-12.5 MG] 10 - 12.5 mg PO DAILY #30 tab 10/15/20 [Rx] Thiamine [Vitamin B-1] 100 mg PO BEDTIME #30 tab 10/15/20 [Rx] amLODIPine [Norvasc] 10 mg PO DAILY #60 tablet 10/15/20 [Rx] Oxygen Therapy Mode: Room Air Patient Handouts: Ipratropium; Albuterol Inhalation [place] (Combivent Respimat), Alcohol Intoxication, [id number], Thiamine, Vitamin B1 tablets, Lisinopril; Hydrochlorothiazide, HCTZ Oral Tablets, Amlodipine Oral Tablets, Folic Acid, Vitamin B9 tablets Referrals: Ken Hand MD [Primary Care Provider] - 10/28/20 8:00 am - Discharge Summary/Plan Comment DC Time >30 min.: No - Patient Data Vitals - Most Recent: Last Vital Signs Temp 97.7 F 10/15/20 07:33 Pulse 77 10/15/20 07:33 Resp 16 10/15/20 07:33 BP 137/83 10/15/20 08:40 Pulse Ox 98 10/15/20 07:33 Weight - Most Recent: 111.402 kg I&O - Last 24 hours: Intake & Output 10/14/20 10/15/20 10/15/20 22:59 06:59 14:59 Intake Total 650 600 Balance 650 600 Lab Results - Last 24 hrs: Laboratory Results - last 24 hr 10/14/20 10/14/20 10/15/20 Range/Units 11:44 16:37 06:12 WBC (4.0-11.0) K/uL RBC (4.30-5.90) M/uL Hgb (12.0-16.0) g/dL Hct (36.0-46.0) % MCV (80.0-98.0) fL MCH (27.0-32.0) pg MCHC (31.0-37.0) g/dL RDW Std Deviation (28.0-62.0) fl RDW Coeff of Jeannette (11.0-15.0) % Plt Count (150-400) K/uL MPV (7.40-12.00) fL Neut % (Auto) (48.0-80.0) % Lymph % (Auto) (16.0-40.0) % Clarke % (Auto) (0.0-15.0) % Eos % (Auto) (0.0-7.0) % Baso % (Auto) (0.0-1.5) % Neut # (Auto) (1.4-5.7) K/uL Lymph # (Auto) (0.6-2.4) K/uL Clarke # (Auto) (0.0-0.8) K/uL Eos # (Auto) (0.0-0.7) K/uL Baso # (Auto) (0.0-0.1) K/uL Nucleated RBC % /100WBC Nucleated RBCs # K/uL Sodium (136-145) mmol/L Potassium (3.5-5.1) mmol/L Chloride (98-107) mmol/L Carbon Dioxide (21.0-32.0) mmol/L BUN (7.0-18.0) mg/dL Creatinine (0.6-1.0) mg/dL Est Cr Clr Drug Dosing mL/min Estimated GFR (MDRD) ml/min Glucose (74-106) mg/dL POC Glucose 167 H 150 H 138 H (60-110) mg/dL Calcium (8.5-10.1) mg/dL Magnesium (1.8-2.4) mg/dL 10/15/20 10/15/20 Range/Units 06:27 06:27 WBC 4.94 (4.0-11.0) K/uL RBC 3.92 L (4.30-5.90) M/uL Hgb 11.2 L (12.0-16.0) g/dL Hct 35.1 L (36.0-46.0) % MCV 89.5 (80.0-98.0) fL MCH 28.6 (27.0-32.0) pg MCHC 31.9 (31.0-37.0) g/dL RDW Std Deviation 45.7 (28.0-62.0) fl RDW Coeff of Jeannette 14 (11.0-15.0) % Plt Count 206 (150-400) K/uL MPV 10.70 (7.40-12.00) fL Neut % (Auto) 55.3 (48.0-80.0) % Lymph % (Auto) 32.2 (16.0-40.0) % Clarke % (Auto) 8.9 (0.0-15.0) % Eos % (Auto) 3.4 (0.0-7.0) % Baso % (Auto) 0.2 (0.0-1.5) % Neut # (Auto) 2.7 (1.4-5.7) K/uL Lymph # (Auto) 1.6 (0.6-2.4) K/uL Clarke # (Auto) 0.4 (0.0-0.8) K/uL Eos # (Auto) 0.2 (0.0-0.7) K/uL Baso # (Auto) 0.0 (0.0-0.1) K/uL Nucleated RBC % 0.0 /100WBC Nucleated RBCs # 0 K/uL Sodium 141 (136-145) mmol/L Potassium 4.1 (3.5-5.1) mmol/L Chloride 105 (98-107) mmol/L Carbon Dioxide 28.6 (21.0-32.0) mmol/L BUN 19 H (7.0-18.0) mg/dL Creatinine 1.0 (0.6-1.0) mg/dL Est Cr Clr Drug Dosing 60.36 mL/min Estimated GFR (MDRD) > 60.0 ml/min Glucose 139 H (74-106) mg/dL POC Glucose (60-110) mg/dL Calcium 9.4 (8.5-10.1) mg/dL Magnesium 1.9 (1.8-2.4) mg/dL Med Orders - Current: Current Medications Discontinued Medications Acetaminophen (Tylenol) 650 mg PO Q4H PRN PRN Reason: Pain (Mild 1-3)/fever Last Admin: 10/14/20 16:11 Dose: 650 mg Documented by: Albuterol/Ipratropium (Duoneb 3.0-0.5 Mg/3 Ml) 3 ml NEB Q4HRRT PRN PRN Reason: Shortness Of Breath/wheezing Last Admin: 10/15/20 09:04 Dose: 3 ml Documented by: Amlodipine Besylate (Norvasc) 10 mg PO DAILY [facility] Last Admin: 10/15/20 08:40 Dose: 10 mg Documented by: Aspirin (Aspirin) 81 mg PO DAILY [facility] Last Admin: 10/15/20 08:39 Dose: 81 mg Documented by: Atorvastatin Calcium (Lipitor) 40 mg PO BEDTIME [facility] Last Admin: 10/14/20 20:34 Dose: 40 mg Documented by: Dextrose/Water (Dextrose 50% In Water) 50 ml IV ASDIRECTED PRN PRN Reason: Hypoglycemia Diazepam (Valium.) 5 mg PO BID [facility] Last Admin: 10/13/20 09:49 Dose: 5 mg Documented by: Folic Acid (Folic Acid) 1 mg PO DAILY [facility] Last Admin: 10/15/20 08:40 Dose: 1 mg Documented by: Glucagon (Glucagen) 1 mg IM ASDIRECTED PRN PRN Reason: Hypoglycemia Lisinopril/HCTZ (Lisinopril-Hctz 10-12.5 Mg) 1 tab PO DAILY [facility] Last Admin: 10/15/20 08:40 Dose: 1 tab Documented by: Heparin Sodium (Porcine) (Heparin Sodium) 5,000 units SUBCUT Q12H [facility] Last Admin: 10/15/20 05:46 Dose: 5,000 units Documented by: Sodium Chloride (Normal Saline) 1,000 mls @ 999 mls/hr IV STAT ONE Stop: 10/10/20 14:21 Last Admin: 10/10/20 13:48 Dose: 999 mls/hr Documented by: Multivitamins/Minerals 10 ml/Thiamine HCl 100 mg/ Folic Acid 1 mg/ Sodium Chloride 1,011.2 mls @ 125 mls/hr IV ONETIME ONE Stop: 10/11/20 00:22 Last Admin: 10/10/20 17:20 Dose: 125 mls/hr Documented by: Thiamine HCl 100 mg/ Sodium (Chloride) 101 mls @ 202 mls/hr IV DAILY [facility] Last Admin: 10/15/20 09:05 Dose: Not Given Documented by: Pantoprazole Sodium 40 mg/ (Sodium Chloride) 10 mls @ 300 mls/hr IV Q24H [facility] Last Admin: 10/13/20 17:10 Dose: 300 mls/hr Documented by: Lactated Ringer's (Ringers, Lactated) 1,000 mls @ 100 mls/hr IV ASDIRECTED [facility] Last Admin: 10/13/20 05:39 Dose: 100 mls/hr Documented by: Magnesium Sulfate (Magnesium Sulfate In Water 2 Gm/50 Ml) 2 gm in 50 mls @ 50 mls/hr IV ONETIME ONE Stop: 10/12/20 13:59 Last Admin: 10/12/20 13:45 Dose: 50 mls/hr Documented by: Magnesium Sulfate (Magnesium Sulfate In Water 2 Gm/50 Ml) 2 gm in 50 mls @ 50 mls/hr IV ONETIME [facility] Last Admin: 10/14/20 01:12 Dose: 50 mls/hr Documented by: Influenza Virus Vaccine (Pharmacy To Dose - Influenza Vaccine) 1 each IM ONETIME ONE Stop: 10/10/20 20:24 Influenza Virus Vaccine (Fluzone Quad [id number] Syringe) 60 mcg IM .ONCE ONE Stop: 10/15/20 09:01 Last Admin: 10/15/20 09:08 Dose: 60 mcg Documented by: Insulin Aspart (Novolog) 0 unit SUBCUT TIDAC [facility]; Protocol Last Admin: 10/15/20 07:04 Dose: Not Given Documented by: Lorazepam (Ativan) 1 mg IVPUSH ONETIME ONE Stop: 10/10/20 13:22 Last Admin: 10/10/20 13:48 Dose: 1 mg Documented by: Lorazepam (Ativan) 1 mg IVPUSH ONETIME ONE Stop: 10/10/20 15:59 Last Admin: 10/10/20 16:15 Dose: 1 mg Documented by: Lorazepam (Ativan) 0 mg IVPUSH Q4H [facility]; Protocol Last Admin: 10/13/20 13:41 Dose: Not Given Documented by: Lorazepam (Ativan) 2 mg IVPUSH ONETIME ONE Stop: 10/11/20 16:18 Last Admin: 10/11/20 16:24 Dose: 2 mg Documented by: Lorazepam (Ativan) 0 mg IVPUSH Q4H PRN; Protocol PRN Reason: CIWAA Last Admin: 10/13/20 20:23 Dose: 1 mg Documented by: Miscellaneous Information (Remove Patch) 1 ea TRDERM DAILY [facility] Last Admin: 10/15/20 09:04 Dose: 1 ea Documented by: Montelukast Sodium (Singulair) 10 mg PO DAILY [facility] Last Admin: 10/15/20 08:40 Dose: 10 mg Documented by: Nicotine (Habitrol) 21 mg TRDERM DAILY [facility] Last Admin: 10/15/20 08:39 Dose: 21 mg Documented by: Ondansetron HCl (Zofran Odt) 4 mg PO Q4H PRN PRN Reason: nausea, able to take PO Pantoprazole Sodium (Protonix) 40 mg PO DAILY@1730 [facility] Last Admin: 10/14/20 17:53 Dose: 40 mg Documented by: Potassium Chloride (Klor-Con M20) 40 meq PO ONETIME ONE Stop: 10/10/20 17:22 Last Admin: 10/10/20 18:14 Dose: 40 meq Documented by: Potassium Chloride (Klor-Con M20) 40 meq PO ONETIME ONE Stop: 10/11/20 07:45 Last Admin: 10/11/20 08:03 Dose: 40 meq Documented by: Fluticasone/Salmeterol (Advair Diskus 250-50) 1 puff INH BID MARCELO Last Admin: 10/15/20 09:04 Dose: 1 puff Documented by: Sodium Chloride (Saline Flush) 10 ml FLUSH ASDIRECTED PRN PRN Reason: Keep Vein Open Last Admin: 10/10/20 13:48 Dose: 10 ml Documented by: Sodium Chloride (Saline Flush) 2.5 ml FLUSH ASDIRECTED PRN PRN Reason: Keep Vein Open Last Admin: 10/14/20 10:40 Dose: 2.5 ml Documented by:
== END 2020-10-15 09:15 | disposition home or self-care (01) | DRG 897 ==
LOC: MW.ED 13:19 → MW.MS 16:12
PROVIDERS: ADMIT Student in an Organized Health Care Education/Training Program; ATTEND Student in an Organized Health Care Education/Training Program
DX: F10.230 Alcohol dependence with withdrawal, uncomplicated (principal); N17.9 Acute kidney failure, unspecified; F41.9 Anxiety disorder, unspecified; Z20.822 Contact with and (suspected) exposure to COVID-19; E11.9 Type 2 diabetes mellitus without complications; E66.9 Obesity, unspecified; E78.00 Pure hypercholesterolemia, unspecified; G47.30 Sleep apnea, unspecified; K21.9 Gastro-esophageal reflux disease without esophagitis; F17.210 Nicotine dependence, cigarettes, uncomplicated; E87.6 Hypokalemia; I10 Essential (primary) hypertension; J45.20 Mild intermittent asthma, uncomplicated; Z87.09 Personal history of other diseases of the respiratory system; Z86.79 Personal history of other diseases of the circulatory system; Z91.19 Patient's noncompliance with other medical treatment and regimen; Z86.73 Personal history of transient ischemic attack (TIA), and cerebral infarction without residual deficits; Z79.84 Long term (current) use of oral hypoglycemic drugs; Z79.899 Other long term (current) drug therapy; Z79.52 Long term (current) use of systemic steroids; Z68.38 Body mass index [BMI] 38.0-38.9, adult
CPT/HCPCS: 36415; 71045; 71045-26; 80048; 80053; 80179; 80305-QW; 81001; 81025; 82272; 82962; 83690; 83735; 84100; 84443; 85025; 87086; 90686; 94640; 96365; 96366; 96375; 96376; 99283; 99285-25; A9270-GY; C9113; G0008; J1644; J1815-GY; J2060; J3411; J3475; J7030; J7120; J7620-GY; U0002

== ENCOUNTER 2020-11-02 09:40 | Emergency (ER) | payer MEDICAID ==
[2020-11-02] MEDS ORDERED: Ipratropium 0.02% 0.5 MG/2.5 ML Neb Soln NEB ONE ×3 (09:50→12:12)
[2020-11-02] MEDS ORDERED: Albuterol 0.083% 2.5 MG/3 ML Neb Soln NEB ONE ×2 (09:50→12:11)
[2020-11-02] MEDS ORDERED: Aspirin 81 MG Tab.Chew PO ONE (09:55)
[2020-11-02 10:27] LABS: BLOOD UREA NITROGEN,BUN 19 mg/dL (7.0-18.0); CARBON DIOXIDE,CO2 26.3 mmol/L (21.0-32.0); CHLORIDE,CL 99 mmol/L (98-107); GLUCOSE RANDOM 184 mg/dL (74-106); POTASSIUM,K 4.1 mmol/L (3.5-5.1); SODIUM,NA 137 mmol/L (136-145)
[2020-11-02] MEDS ORDERED: Magnesium Sulfate (4.06 MEQ/ML) 5 GM/10 ML SDV IV STA (10:31)
[2020-11-02] MEDS ORDERED: Magnesium Sulfate/Water 2 GM/50 ML BAG IV ONE (10:45)
--- NOTE | 2020-11-02 10:52 | CR ---
INDICATION: Chest TECHNIQUE: Single view chest. FINDINGS: The lungs are clear. The heart, mediastinum and pulmonary vessels are of normal size. There is no evidence of pleural disease. IMPRESSION: Negative chest. Dictated by Farrah Maria MD @ Nov 02 2020 10:51AM Signed by Dr. Farrah Maria @ Nov 02 2020 10:51AM
[2020-11-02] MEDS ORDERED: Albuterol 0.083% 2.5 MG/3 ML Neb Soln NEB STA (11:00)
[2020-11-02] MEDS ORDERED: predniSONE 20 MG Tab PO STA (11:01)
--- NOTE | 2020-11-02 11:01 | CR ---
INDICATION: Left knee pain, trauma. TECHNIQUE: Left knee radiographs, 3 views. COMPARISON: None available. FINDINGS: No dislocation or displaced fracture. Curvilinear 8 mm ossific density overlying the distal femur in the region of the MCL proximal attachment. Tricompartmental osteophytosis with moderate patellofemoral and mild medial compartment joint space narrowing. Small-moderate joint effusion. IMPRESSION: 1. Suspect age-indeterminate avulsion fracture in the region of the MCL femoral attachment. 2. 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 Dictated by Rojelio Tom MD @ 11/02/2020 11:00:39 AM Dictated by: Rojelio Tom MD @ 11/02/2020 11:00:46 (Electronically Signed)
--- NOTE | 2020-11-02 11:43 | EDM.PDOC ---
ED HPI GENERAL MEDICAL PROBLEM - General Chief Complaint: Chest Pain Stated Complaint: ASTHMA/CHEST PAIN Time Seen by Provider: 11/02/20 09:53 - History of Present Illness INITIAL COMMENTS - FREE TEXT/NARRATIVE: CHIEF COMPLAINT(S): "Asthma, I fell down and hurt my knee, and chest pains." HISTORY OF PRESENT ILLNESS: This is a 55-year-old woman with a past medical history of hypertension, diabetes mellitus, asthma who comes to the emergency department with a chief complaint of "asthma, I fell down and hurt my knee, and chest pains." Patient states that for the last 3 days she has been wheezing. She states that she ran out of her albuterol nebulizer and inhaler. She states that she does feel short of breath. She denies any cough, runny nose, congestion. She states that after she started wheezing she went outside and fell on the ice injuring her left knee. She states that her pain is rated 5 out of 10, achy without any radiation, numbness, tingling, or weakness. She states that touching it worsens it. She states that she is able to ambulate. She denies any relieving symptoms. She has not yet tried any pain medication. She states that when she fell she did not have any head injury or loss of consciousness and denies any nausea or vomiting. She states that this morning approximately 2 to 3 hours prior to arrival she started to develop chest pain located on the left side by a bruise. She states that she developed a bruise after she had put some ice directly on her skin. She states that it is throbbing rated 8 out of 10 without any radiation. She states that exacerbation does not worsen his pain. She denies any physical abuse. She denies any recent travel, recent surgery, prior history of DVT or PE. She states that the pain is not associated with any nausea, vomiting, diaphoresis. She states the pain is located directly on the bruise and exacerbated by touching it. There is no relieving symptoms. She denies any lower extremity edema, exertional dyspnea. REVIEW OF SYSTEMS: Constitutional: Denies fever, chills. Eyes: Denies eye pain Ears, Nose, Mouth, & Throat: Denies earache Cardiovascular: Positive for left-sided chest pain around bruise Respiratory: Positive for wheezing and shortness of breath. Denies cough Gastrointestinal: Denies Nausea, vomiting, diarrhea, hematochezia. Genitourinary: Denies hematuria Skin:Denies a rash MSK: Positive for left knee pain. Neurological: Denies blurred vision, numbness, tingling, weakness Psychiatric: Denies depression PAST MEDICAL HISTORY: As per history of present illness and as reviewed below otherwise noncontributory. SURGICAL HISTORY: As per history of present illness and as reviewed below otherwise noncontributory. SOCIAL HISTORY: As per history of present illness and as reviewed below otherwise noncontributory. FAMILY HISTORY: As per history of present illness and as reviewed below otherwise noncontributory. EXAMINATION OF ORGAN SYSTEMS/BODY AREAS: Constitutional: Blood pressure is 141/86, heart rate 102, respiratory rate 16 with an oxygen saturation 98% on room air. Temperature 36.5 General: Middle-aged woman who is audibly wheezing but is speaking in full sentences. Psychiatric: Appropriate mood and affect. Eyes: No scleral icterus or conjunctival erythema ENMT: Moist mucous membranes. No pharyngeal erythema Cardiovascular: Regular, rate, and rhythm. No gallops, murmurs, or rubs. Bilateral upper extremity pulses symmetric and intact. No peripheral edema. No JVD. On the left side of the chest there is an area with a bruising measuring 3 x 3 cm which is tender to palpation. No fluctuance or induration. No surrounding erythema. Respiratory: Bilateral lungs with wheezing and prolonged expiratory phase. No increased work of breathing. Gastrointestinal: Soft, non-tender, non-distended. Normoactive bowel sounds Genitourinary: No suprapubic tenderness Musculoskeletal: Normal range of motion. There is mild swelling to the left knee with tenderness to palpation throughout. Valgus and varus testing limited secondary to patient body habitus. Skin: Bruising to the left chest wall Neurological: Alert, GCS 15 MEDICAL DECISION MAKING AND COURSE IN THE ED WITH INTERPRETATION/REVIEW OF DIAGNOSTIC STUDIES: This is a 55-year-old woman with a past medical history of hypertension, diabetes mellitus, asthma who comes to the emergency department with bilateral expiratory wheezing with prolonged expiratory phase and a swollen, tender left knee. At this time I do not believe this is ACS however given her age and history obtain a cardiac work-up. EKG was obtained which did not reveal any acute signs of ischemia. We will provide the patient with albuterol 5 mg and ipratropium 0.5 mg and prednisone 60 mg and reevaluate. The patient is oxygenating appropriately and does not have any increased work of breathing. Laboratory: CBC is unremarkable. BMP reveals BUN of 19 and a creatinine of 1.1 which is about her baseline, hyperglycemia at 184 and hypomagnesemia at 1.7. Troponin is negative. BNP is 3. TSH is 1.04. Covid and influenza are negative. After labs I did provide the patient with 2 mg of IV magnesium for hypomagnesemia and also to treat asthma exacerbation. Time: 0940 Twelve-lead EKG interpreted by myself. Normal sinus rhythm at a rate of 98beats per minute. Left axis. ID interval is 138 ms. QRS duration is [address] segments are normal without elevations or depressions. No T wave inversions Q waves in leads III, aVF. Hypertrophy not noted. There is a left anterior fascicular block and right bundle branch block with occasional PVCs PVCs are new from prior EKG however no other changes from 04/06/2020. Interpretation: Normal sinus rhythm with right bundle branch block, left anterior fascicular block and occasional PVCs. On reevaluation, the patient's oxygenation continued to remain stable. She states that she did have some improvement in her breathing. I did reevaluate her and she still had some wheezing bilaterally with prolonged expiratory phase. Therefore we will provide her with an additional DuoNeb treatment. We will reevaluate. I did review the patient's chart and the patient has had a cardiac work-up in May of last year with a nuclear medicine scan revealing a fixed anterior wall defect without any reversible ischemia. Ejection fraction at that time was 70%. She also completed a stress test which revealed a right bundle branch block on her EKG and in ST depression in lead I which was insignificant. We will obtain a repeat troponin. Time: 1021 Twelve-lead EKG interpreted by myself. Normal sinus rhythm at a rate of 88beats per minute. Left axis. ID interval is 140 ms. QRS duration is [address] segments are normal without elevations or depressions. No T wave inversions Q waves in leads III, aVF. Hypertrophy not noted. There is a left anterior fascicular block and right bundle branch block with occasional PVCs PVCs are new from prior EKG however no other changes from 04/06/2020. Interpretation: Normal sinus rhythm with right bundle branch block, left anterior fascicular block and occasional PVCs. On reevaluation, the patient again continued to remain saturate appropriately, was speaking in full sentences but did have mild wheezing this time with better air entry. We will provide the patient with an additional DuoNeb treatment and reevaluate. Time: 1316 Twelve-lead EKG interpreted by myself. Normal sinus rhythm at a rate of 84 beats per minute. Left axis. ID interval is 142 ms. QRS duration is approximately [address] segments are normal without elevations or depressions. No T wave inversions Q waves in leads III, aVF. Hypertrophy not noted. There is a left anterior fascicular block and right bundle branch block. This is unchanged from prior EKG dated from 04/06/2020. Interpretation: Normal sinus rhythm with right bundle branch block, left anterior fascicular block Laboratory: Repeat troponin was negative. Covid and RSV is negative. The radiological images were viewed by myself along with reading the report from the radiologist. Chest x-ray does not reveal any acute cardiopulmonary process. On reevaluation the patient was saturating appropriately and had better air entry. I did discuss at this time that I would provide her with a prescription for albuterol at home. I discussed that I be providing her with prednisone for the next 5 days. I discussed that if she had a new or worsening shortness of breath that she should return to the emergency department. I discussed that her left-sided chest pain is likely secondary to some mild frostbite due to her placing ice directly on her skin. I discussed that she should not reexpose this to ice and that to take Tylenol and Motrin for pain relief. I discussed that this should improve. In regards to her left knee pain this is likely secondary to a MCL tear. I discussed with her that she could use an Daryn bandage to this area and follow-up with her primary care physician or orthopedics. She is to return for any new or worsening symptoms such as rash that is expanding on the left chest wall or blister formation. She did express understanding was amenable discharge at this time. DISPOSITION: The patient was discharged home in stable condition. The patient will follow up with primary care physician within 2 to 3 days CONDITION: Fair PROCEDURES: None FINAL IMPRESSION(S)/DIAGNOSES: 1. Acute asthma exacerbation 2. Acute left-sided chest wall pain likely secondary to accidental frostbite without blister formation 3. Acute left knee pain likely secondary to possible avulsion fracture in the region of the MCL femoral attachment versus osteoarthritis Luigi Miller M.D.. chest Pain Score (Numeric/FACES): 10 - Related Data Allergies Allergy/AdvReac Type Severity Reaction Status Date / Time crab Allergy Hives Verified 11/02/20 09:54 Home Meds: Home Meds atorvaSTATin [Lipitor] 40 mg PO BEDTIME 90 Days #30 tab 04/18/18 [Rx] Glimepiride [Amaryl] 2 mg PO DAILY 07/22/18 [History] metFORMIN HCl [Metformin HCl] 500 mg PO BID 06/23/19 [History] Albuterol/Ipratropium [DuoNeb 3.0-0.5 MG/3 ML] 3 ml NEB Q6H PRN #60 neb 06/24/19 [Rx] Montelukast Sodium 10 mg PO DAILY 04/06/20 [History] Fluticasone Propion/Salmeterol [Fluticasone-Salmeterol 250-50] 1 inh IH BID #1 04/07/20 [Rx] Albuterol [Ventolin HFA] 2 puff INH Q4HR PRN #1 inhaler 10/15/20 [Rx] Folic Acid 1 mg PO BEDTIME #30 tab 10/15/20 [Rx] Lisinopril/Hydrochlorothiazide [Lisinopril-HCTZ 10-12.5 MG] 10 - 12.5 mg PO D AILY #30 tab 10/15/20 [Rx] Thiamine [Vitamin B-1] 100 mg PO BEDTIME #30 tab 10/15/20 [Rx] amLODIPine [Norvasc] 10 mg PO DAILY #60 tablet 10/15/20 [Rx] Albuterol [Proventil HFA] 200 puff INH Q4H PRN #1 inhaler 11/02/20 [Rx] Albuterol [Proventil Neb Soln] 2.5 mg NEB Q4HRRT PRN #50 cup 11/02/20 [Rx] predniSONE [Prednisone] 50 mg PO DAILY #5 tablet 11/02/20 [Rx] Past Medical History HEENT History: Reports: Other (See Below) Other HEENT History: ear infection Cardiovascular History: Reports: High Cholesterol, Hypertension Respiratory History: Reports: Asthma, Sleep Apnea Gastrointestinal History: Reports: GERD Genitourinary History: Reports: None PHARMACY SPECIALIST History: Reports: Other PHARMACY SPECIALIST History: 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 Musculoskeletal History: Reports: Other (See Below) Other Musculoskeletal History: ankle fracture - 2013 Neurological History: Reports: TIA Psychiatric History: Reports: None Endocrine/Metabolic History: Reports: Diabetes, Type II Hematologic History: Reports: None Immunologic History: Reports: None Oncologic (Cancer) History: Reports: None Dermatologic History: Reports: None - Infectious Disease History Infectious Disease History: Reports: Chicken Pox, Measles, Mumps - Past Surgical History HEENT Surgical History: Reports: None Cardiovascular Surgical History: Reports: None Respiratory Surgical History: Reports: None GI Surgical History: Reports: None Female Surgical History: Reports: None Endocrine Surgical History: Reports: None Neurological Surgical History: Reports: None Musculoskeletal Surgical History: Reports: Other (See Below) Other Musculoskeletal Surgeries/Procedures:: broke Left ankle Dermatological Surgical History: Reports: None Social & Family History - Family History Family Medical History: No Pertinent Family History Cardiac: Reports: Hypertension, NM Respiratory: Reports: Asthma OBGYN: Reports: Musculoskeletal: Reports: Arthritis Neurological: Reports: CVA Endocrine/Metabolic: Reports: Diabetes, type II - Tobacco Use Tobacco Use Status *Q: Current Every Day Tobacco User Years of Tobacco use: 35 Packs/Tins Daily: 0.3 - Caffeine Use Caffeine Use: Reports: Energy Drinks - Recreational Drug Use Recreational Drug Use: No ED ROS GENERAL - Review of Systems Review Of Systems: See Below ED EXAM, GENERAL - Physical Exam Exam: See Below Course - Vital Signs Last Recorded V/S: Last Vital Signs Temp 36.5 C 11/02/20 09:52 Pulse 85 11/02/20 13:50 Resp 17 11/02/20 13:50 BP 155/80 H 11/02/20 13:50 Pulse Ox 97 11/02/20 13:50 - Orders/Labs/Meds Labs: Laboratory Tests 11/02/20 11/02/20 11/02/20 Range/Units 09:48 09:48 09:48 WBC 8.00 (4.0-11.0) K/uL RBC 4.41 (4.30-5.90) M/uL Hgb 13.2 (12.0-16.0) g/dL Hct 38.2 (36.0-46.0) % MCV 86.6 (80.0-98.0) fL MCH 29.9 (27.0-32.0) pg MCHC 34.6 (31.0-37.0) g/dL RDW Std Deviation 44.2 (28.0-62.0) fl RDW Coeff of Jeannette 14 (11.0-15.0) % Plt Count 311 (150-400) K/uL MPV 10.60 (7.40-12.00) fL Neut % (Auto) 60.2 (48.0-80.0) % Lymph % (Auto) 29.1 (16.0-40.0) % [place] % (Auto) 8.1 (0.0-15.0) % Eos % (Auto) 2.3 (0.0-7.0) % Baso % (Auto) 0.3 (0.0-1.5) % Neut # (Auto) 4.8 (1.4-5.7) K/uL Lymph # (Auto) 2.3 (0.6-2.4) K/uL [place] # (Auto) 0.7 (0.0-0.8) K/uL Eos # (Auto) 0.2 (0.0-0.7) K/uL Baso # (Auto) 0.0 (0.0-0.1) K/uL Nucleated RBC % 0.0 /100WBC Nucleated RBCs # 0 K/uL INR 1.05 Sodium 137 (136-145) mmol/L Potassium 4.1 (3.5-5.1) mmol/L Chloride 99 (98-107) mmol/L Carbon Dioxide 26.3 (21.0-32.0) mmol/L BUN 19 H (7.0-18.0) mg/dL Creatinine 1.1 H (0.6-1.0) mg/dL Est Cr Clr Drug Dosing 54.87 mL/min Estimated GFR (MDRD) > 60.0 ml/min Glucose 184 H (74-106) mg/dL Calcium 9.7 (8.5-10.1) mg/dL Magnesium 1.7 L (1.8-2.4) mg/dL Troponin I < 0.050 (0.000-0.056) ng/mL B-Natriuretic Peptide (<100) PG/ML TSH 3rd Generation 1.04 (0.36-3.74) uIU/mL Influenza Type A RNA (NEGATIVE) Influenza Type B RNA (NEGATIVE) SARS-CoV-2 RNA ([place]) (NEGATIVE) 11/02/20 11/02/20 11/02/20 Range/Units 09:48 11:01 12:27 WBC (4.0-11.0) K/uL RBC (4.30-5.90) M/uL Hgb (12.0-16.0) g/dL Hct (36.0-46.0) % MCV (80.0-98.0) fL MCH (27.0-32.0) pg MCHC (31.0-37.0) g/dL RDW Std Deviation (28.0-62.0) fl RDW Coeff of Jeannette (11.0-15.0) % Plt Count (150-400) K/uL MPV (7.40-12.00) fL Neut % (Auto) (48.0-80.0) % Lymph % (Auto) (16.0-40.0) % [place] % (Auto) (0.0-15.0) % Eos % (Auto) (0.0-7.0) % Baso % (Auto) (0.0-1.5) % Neut # (Auto) (1.4-5.7) K/uL Lymph # (Auto) (0.6-2.4) K/uL [place] # (Auto) (0.0-0.8) K/uL Eos # (Auto) (0.0-0.7) K/uL Baso # (Auto) (0.0-0.1) K/uL Nucleated RBC % /100WBC Nucleated RBCs # K/uL INR Sodium (136-145) mmol/L Potassium (3.5-5.1) mmol/L Chloride (98-107) mmol/L Carbon Dioxide (21.0-32.0) mmol/L BUN (7.0-18.0) mg/dL Creatinine (0.6-1.0) mg/dL Est Cr Clr Drug Dosing mL/min Estimated GFR (MDRD) ml/min Glucose (74-106) mg/dL Calcium (8.5-10.1) mg/dL Magnesium (1.8-2.4) mg/dL Troponin I < 0.050 (0.000-0.056) ng/mL B-Natriuretic Peptide 3 (<100) PG/ML TSH 3rd Generation (0.36-3.74) uIU/mL Influenza Type A RNA NEGATIVE (NEGATIVE) Influenza Type B RNA NEGATIVE (NEGATIVE) SARS-CoV-2 RNA ([place]) NEGATIVE (NEGATIVE) Meds: Medications Discontinued Medications Generic Name Dose Route Start Last Admin Trade Name Freq PRN Reason Stop Dose Admin Albuterol 5 mg 11/02/20 09:50 11/02/20 10:09 [facility] 11/02/20 09:51 5 mg ONETIME ONE Administration Albuterol 5 mg 11/02/20 11:00 11/02/20 11:17 [facility] 11/02/20 11:01 5 mg ONETIME STA Administration Albuterol 5 mg 11/02/20 12:11 11/02/20 12:28 [facility] 11/02/20 12:12 5 mg ONETIME ONE Administration Aspirin 324 mg 11/02/20 09:55 11/02/20 11:01 Aspirin PO 11/02/20 09:56 324 mg ONETIME ONE Administration Magnesium Sulfate 2 gm in 50 mls @ 50 mls/hr 11/02/20 10:45 11/02/20 11:01 Magnesium Sulfate In Water 2 Gm/50 Ml IV 11/02/20 11:44 50 mls/hr ONETIME ONE Administration Ipratropium [place] 0.5 mg 11/02/20 09:50 11/02/20 10:15 [facility] 11/02/20 09:51 0.5 mg ONETIME ONE Administration Ipratropium [place] 0.5 mg 11/02/20 11:01 11/02/20 [facility] 11:02 0.5 mg ONETIME ONE Administration Ipratropium [place] 0.5 mg 11/02/20 12:12 11/02/20 12:28 [facility] 11/02/20 12:13 0.5 mg ONETIME ONE Administration Prednisone 60 mg 11/02/20 11:01 11/02/20 11:07 Prednisone PO 11/02/20 11:02 60 mg ONETIME STA Administration Departure - Departure Time of Disposition: 13:39 Disposition: Home, Self-Care 01 Condition: Fair Clinical Impression: Asthma exacerbation Qualifiers: Asthma severity: mild Asthma persistence: intermittent Qualified Code(s): J45.21 - Mild intermittent asthma with (acute) exacerbation Frostbite Qualifiers: Encounter type: initial encounter Qualified Code(s): T33.90XA - Superficial frostbite of unspecified sites, initial encounter - Discharge Information *PRESCRIPTION DRUG MONITORING PROGRAM REVIEWED*: No *COPY OF PRESCRIPTION DRUG MONITORING REPORT IN PATIENT TREVOR: No Prescriptions: predniSONE [Prednisone] 50 mg PO DAILY #5 tablet Albuterol [Proventil HFA] 200 puff INH Q4H PRN #1 inhaler PRN Reason: Wheezing Albuterol [Proventil Neb Soln] 2.5 mg NEB Q4HRRT PRN #50 cup PRN Reason: Wheezing Instructions: Frostbite, [id number], Asthma, Adult, [id number] Referrals: PCP,Unknown [Ordering Only Provider] - Forms: ED Department Discharge Additional Instructions: You evaluate today on an emergent basis. At this time you did have an asthma exacerbation. I recommend using albuterol as needed every 4 hours for wheezing. I did prescribe you prednisone 50 mg to be used daily for 5 days. Please return to the emergency department for any new worsening symptoms such as worsening shortness of breath or chest pain. I do believe the bruise on the left side of your chest wall that is causing pain is from accidental frostbite. It is important to not reexpose this to ice. The bruise should resolve on its own. Please return if you have any blistering, redness or warmth or fever. Please follow-up with your primary care physician within [address] [facility] - Primary [facility] [address] [place] [id number] [id number] The patient is informed of any results of their evaluation and diagnostic workup and all questions are answered. They are given discharge instructions and return precautions. The patient is stable for discharge. The patient states they understand and agree with the plan and that they will return if their symptoms get worse or if they have any new concerns. The following information is given to patients seen in the emergency department who are being discharged to home. This information is to outline your options for follow-up care. We provide all patients seen in our emergency department with a follow-up referral. The need for follow-up, as well as the timing and circumstances, are variable depending upon the specifics of your emergency department visit. If you don't have a primary care physician on staff, we will provide you with a referral. We always advise you to contact your personal physician following an emergency department visit to inform them of the circumstance of the visit and for follow-up with them and/or the need for any referrals to a consulting specialist. The emergency department will also refer you to a specialist when appropriate. This referral assures that you have the opportunity for follow-up care with a specialist. All of these measure are taken in an effort to provide you with optimal care, which includes your follow-up. Under all circumstances we always encourage you to contact your private physician who remains a resource for coordinating your care. When calling for follow-up care, please make the office aware that this follow-up is from your recent emergency room visit. If for any reason you are refused follow-up, please contact the [facility] Emergency Department at and asked to speak to the emergency department charge nurse. Sepsis Event Note (ED) - Evaluation Sepsis Screening Result: No Definite Risk - Focused Exam Vital Signs: Vital Signs Pulse Resp BP Pulse Ox 11/02/20 13:50 85 17 155/80 H 97 11/02/20 13:21 90 27 H 154/82 H 93 L
[2020-11-02 11:47] LABS: CORONAVIRUS COVID-19 NAA NEGATIVE (NEGATIVE); INFLUENZA A NAA NEGATIVE (NEGATIVE); INFLUENZA B NAA NEGATIVE (NEGATIVE)
[2020-11-02 18:00] VITALS: BP 155/80; PULSE 85
== END 2020-11-02 13:52 | disposition home or self-care (01) ==
LOC: MW.ED 09:40
DX: S20.212A Contusion of left front wall of thorax, initial encounter (principal); J45.21 Mild intermittent asthma with (acute) exacerbation; T33.90XA Superficial frostbite of unspecified sites, initial encounter; M25.562 Pain in left knee; E78.00 Pure hypercholesterolemia, unspecified; I10 Essential (primary) hypertension; E11.9 Type 2 diabetes mellitus without complications; I45.10 Unspecified right bundle-branch block; I44.4 Left anterior fascicular block; Z72.0 Tobacco use; Z91.013 Allergy to seafood; Z79.899 Other long term (current) drug therapy; Z20.822 Contact with and (suspected) exposure to COVID-19; W18.30XA Fall on same level, unspecified, initial encounter
CPT/HCPCS: 0240U; 36415; 71045; 73562; 80048; 83735; 83880; 84443; 84484; 85025; 85610; 93005; 94640; 96365; 99285; A9270; J3475; 93010; 99284

== ENCOUNTER 2020-11-06 20:45 | Emergency (ER) | payer MEDICAID ==
[2020-11-06] MEDS ORDERED: Ondansetron 4 MG/2 ML SDV IVPUSH ONE (21:22)
[2020-11-06] MEDS ORDERED: Sodium Chloride 0.9% 1,000 ML IV ONE (21:22)
[2020-11-06] MEDS ORDERED: methylPREDNISolone Sodium Succinate 125 MG/2 ML SDV IVPUSH ONE (21:22)
[2020-11-06] MEDS ORDERED: Sodium Chloride 0.9% 2.5 ML Syringe FLUSH PRN (21:22)
[2020-11-06] MEDS ORDERED: Sodium Chloride 0.9% 10 ML Syringe FLUSH PRN (21:22)
[2020-11-06] MEDS ORDERED: Albuterol/Ipratropium 3.0-0.5 MG/3 ML Neb Soln NEB ONE (21:22)
--- NOTE | 2020-11-06 21:22 | EDM.PDOC ---
ED HPI GENERAL MEDICAL PROBLEM - General Chief Complaint: Respiratory Problem Stated Complaint: CHEST PAIN Time Seen by Provider: 11/06/20 21:04 - History of Present Illness INITIAL COMMENTS - FREE TEXT/NARRATIVE: HISTORY AND PHYSICAL: History of present illness: This is a 55-year-old female with history significant for asthma, hypertension, diabetes who presents ER today secondary to shortness of breath. Patient reports that she is been having issues with her insurance company in order to obtain her albuterol MDI and albuterol nebulizers and has been having episodes of shortness of breath that has required her to come to the ER because she does not have any of her typical home medications. Patient reports that she believes if she had her home albuterol and nebulizers that she would not need to come to the ER for this. Patient reports she has had a nonproductive cough for the last several days. Patient reports that she had a coronavirus test that was -2 days ago. Patient denies any recent fevers, shakes, chills. Patient denies any nausea vomiting or diarrhea. Patient has any dysuria, frequency, urgency. Patient has any chest pain or abdominal discomfort. Patient reports that she has chronic lower back pain that has not changed over the last several months. Patient reports that she smokes approximately 1 pack/day, she drinks alcohol daily and had about 5 shots of alcohol prior to coming to the ER today. Patient denies any drug use. Patient denies any lower extremity edema. Patient denies any hemoptysis. Patient denies any history of DVT or PE in the past. Review of systems: As per history of present illness and below otherwise all systems reviewed and negative. Past medical history: As per history of present illness and as reviewed below otherwise noncontributory. Surgical history: As per history of present illness and as reviewed below otherwise noncontributory. Social history: No reported history of drug or alcohol abuse. Family history: As per history of present illness and as reviewed below otherwise noncontributory. Physical exam: Constitutional: Patient is oriented to person, place, and time. Appears well- developed and well-nourished. No distress. HEENT: Moist mucous membranes Head: Normocephalic and atraumatic Eyes: Right eye exhibits no discharge. Left eye exhibits no discharge. No scleral icterus Neck: Normal range of motion. No tracheal deviation present. Cardiovascular: Normal rate and regular rhythm. Pulmonary: Effort normal, no respiratory distress. Abdominal: No distention Musculoskeletal: Normal range of motion Neurologic: Alert and oriented to person, place and time. Skin: [place], warm and dry. Psychiatric: Normal mood and affect. Behavior is normal. Judgment and thought content normal. Nursing note and vital signs have been reviewed This patient was seen and evaluated during the 2019 SARS-CoV-2 novel coronavirus pandemic period. Community viral transmission is ongoing at time of this encounter and the emergency department is operating under pandemic response procedures. Or calf pain. Neurovascular unremarkable. Neuro: Awake, alert, oriented. Cranial nerves II through XII unremarkable. Cerebellum unremarkable. Motor and sensory unremarkable throughout. Exam nonfocal. Diagnostics: EKG: As interpreted by ER physician: Amy: Nonspecific ST-T wave abnormalities QRS axis of -40 Right bundle branch block left anterior hemiblock No significant changes from prior EKGs in the ED. No evidence of ST elevation [place] Normal sinus rhythm heart rate of 82 Therapeutics: DuoNeb, Solu-Medrol Assessment and plan: This is a 55-year-old female who presents ER today secondary to shortness of breath and wheezing and flareup of her asthma. Patient reports that she does not have a history of COPD although looking at her records patient does have and has been diagnosed with COPD in the past. In the ED, will check basic labs. EKG appears to be unchanged from prior. 10:44 PM: Patient was reevaluated by me after treatment with albuterol/Atrovent and Solu-Medrol. Patient reports that she does feel improved from respiratory status. Patient's alcohol level was elevated here in the ED. Patient CBC, CMP, troponin were unremarkable. Patient's EKG showed no significant changes from her prior EKGs. Patient currently reports that her breathing is much improved. Patient's pulse ox is 97 to 98% on room air. Patient's vital signs are all normal. Patient has been ambulating to the bath without any difficulty or shortness of breath. Patient be discharged home stable condition with instructions to follow-up with her primary care physician to assist her with getting her medications. Patient reports that she is been having a hard time dealing with her insurance company and reports that they will not refill her inhalers and nebulizer medications until the beginning of November. Patient be discharged home with a prescription for prednisone that she should be able to fill. Reassessment at the time of disposition demonstrates that the patient is in no acute distress. The patient has remained stable throughout the entire ED visit and is without objective evidence for acute process requiring urgent interven tion or hospitalization. The patient is stable for discharge, counseling is provided as documented above, discussed symptomatic treatment and specific conditions for return. I have spoken with the patient/caregiver and discussed todays findings, in addition to providing specific details for the plan of care. Questions are answered and there is agreement with the plan. Definitive disposition and diagnosis as appropriate pending reevaluation and review of above. chest Pain Score (Numeric/FACES): 10 - Related Data Allergies Allergy/AdvReac Type Severity Reaction Status Date / Time crab Allergy Hives Verified 11/06/20 21:04 Home Meds: Home Meds atorvaSTATin [Lipitor] 40 mg PO BEDTIME 90 Days #30 tab 04/18/18 [Rx] Glimepiride [Amaryl] 2 mg PO DAILY 07/22/18 [History] metFORMIN HCl [Metformin HCl] 500 mg PO BID 06/23/19 [History] Albuterol/Ipratropium [DuoNeb 3.0-0.5 MG/3 ML] 3 ml NEB Q6H PRN #60 neb 06/24/19 [Rx] Montelukast Sodium 10 mg PO DAILY 04/06/20 [History] Fluticasone Propion/Salmeterol [Fluticasone-Salmeterol 250-50] 1 inh IH BID #1 04/07/20 [Rx] Albuterol [Ventolin HFA] 2 puff INH Q4HR PRN #1 inhaler 10/15/20 [Rx] Folic Acid 1 mg PO BEDTIME #30 tab 10/15/20 [Rx] Lisinopril/Hydrochlorothiazide [Lisinopril-HCTZ 10-12.5 MG] 10 - 12.5 mg PO DAILY #30 tab 10/15/20 [Rx] Thiamine [Vitamin B-1] 100 mg PO BEDTIME #30 tab 10/15/20 [Rx] amLODIPine [Norvasc] 10 mg PO DAILY #60 tablet 10/15/20 [Rx] Albuterol [Proventil HFA] 200 puff INH Q4H PRN #1 inhaler 11/02/20 [Rx] Albuterol [Proventil Neb Soln] 2.5 mg NEB Q4HRRT PRN #50 cup 11/02/20 [Rx] predniSONE [Prednisone] 50 mg PO DAILY #5 tablet 11/02/20 [Rx] Past Medical History HEENT History: Reports: Other (See Below) Other HEENT History: ear infection Cardiovascular History: Reports: High Cholesterol, Hypertension Respiratory History: Reports: Asthma, Sleep Apnea Gastrointestinal History: Reports: GERD Genitourinary History: Reports: None 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 Musculoskeletal History: Reports: Other (See Below) Other Musculoskeletal History: ankle fracture - 2013 Neurological History: Reports: TIA Psychiatric History: Reports: None Endocrine/Metabolic History: Reports: Diabetes, Type II Hematologic History: Reports: None Immunologic History: Reports: None Oncologic (Cancer) History: Reports: None Dermatologic History: Reports: None - Infectious Disease History Infectious Disease History: Reports: Chicken Pox, Measles, Mumps - Past Surgical History HEENT Surgical History: Reports: None Cardiovascular Surgical History: Reports: None Respiratory Surgical History: Reports: None GI Surgical History: Reports: None Female Surgical History: Reports: None Endocrine Surgical History: Reports: None Neurological Surgical History: Reports: None Musculoskeletal Surgical History: Reports: Other (See Below) Other Musculoskeletal Surgeries/Procedures:: broke Left ankle Dermatological Surgical History: Reports: None Social & Family History - Family History Family Medical History: No Pertinent Family History Cardiac: Reports: Hypertension, [place] Respiratory: Reports: Asthma OBGYN: Reports: Musculoskeletal: Reports: Arthritis Neurological: Reports: CVA Endocrine/Metabolic: Reports: Diabetes, type II - Tobacco Use Tobacco Use Status *Q: Current Every Day Tobacco User Years of Tobacco use: 7 Packs/Tins Daily: 1 - Caffeine Use Caffeine Use: Reports: Energy Drinks - Recreational Drug Use Recreational Drug Use: No ED ROS GENERAL - Review of Systems Review Of Systems: See Below ED EXAM, GENERAL - Physical Exam Exam: See Below Course - Vital Signs Last Recorded V/S: Last Vital Signs Temp 98.1 F 11/06/20 21:04 Pulse 88 11/06/20 21:04 Resp 20 11/06/20 21:04 BP 151/74 H 11/06/20 21:04 Pulse Ox 97 11/06/20 21:04 - Orders/Labs/Meds Orders: Active Orders 24 hr Category Date Time Status EKG Documentation Completion [RC] AM Care 11/06/20 21:22 Active Sodium Chloride 0.9% [Saline Flush] Med 11/06/20 21:22 Active 10 ml FLUSH ASDIRECTED PRN Sodium Chloride 0.9% [Saline Flush] Med 11/06/20 21:22 Active 2.5 ml FLUSH ASDIRECTED PRN Saline Lock Insert [OM.PC] Stat Oth 11/06/20 21:22 Ordered Medication Orders Sodium Chloride (Saline Flush) 10 ml FLUSH ASDIRECTED PRN PRN Reason: Keep Vein Open Last Admin: 11/06/20 21:35 Dose: 10 ml Documented by: ALONDRA Sodium Chloride (Saline Flush) 2.5 ml FLUSH ASDIRECTED PRN PRN Reason: Keep Vein Open Last Admin: 11/06/20 21:35 Dose: 2.5 ml Documented by: ALONDRA Labs: Laboratory Tests 11/06/20 11/06/20 11/06/20 Range/Units 21:00 21:00 21:00 WBC 7.11 (4.0-11.0) K/uL RBC 3.99 L (4.30-5.90) M/uL Hgb 11.5 L (12.0-16.0) g/dL Hct 34.7 L (36.0-46.0) % MCV 87.0 (80.0-98.0) fL MCH 28.8 (27.0-32.0) pg MCHC 33.1 (31.0-37.0) g/dL RDW Std Deviation 46.8 (28.0-62.0) fl RDW Coeff of Jeannette 15 (11.0-15.0) % Plt Count 227 (150-400) K/uL MPV 10.50 (7.40-12.00) fL Neut % (Auto) 77.8 (48.0-80.0) % Lymph % (Auto) 19.0 (16.0-40.0) % [place] % (Auto) 3.2 (0.0-15.0) % Eos % (Auto) 0.0 (0.0-7.0) % Baso % (Auto) 0.0 (0.0-1.5) % Neut # (Auto) 5.5 (1.4-5.7) K/uL Lymph # (Auto) 1.4 (0.6-2.4) K/uL Edmunds # (Auto) 0.2 (0.0-0.8) K/uL Eos # (Auto) 0.0 (0.0-0.7) K/uL Baso # (Auto) 0.0 (0.0-0.1) K/uL Nucleated RBC % 0.0 /100WBC Nucleated RBCs # 0 K/uL Sodium 140 (136-145) mmol/L Potassium 3.9 (3.5-5.1) mmol/L Chloride 101 (98-107) mmol/L Carbon Dioxide 18.7 L (21.0-32.0) mmol/L BUN 19 H (7.0-18.0) mg/dL Creatinine 1.2 H (0.6-1.0) mg/dL Est Cr Clr Drug Dosing 50.30 mL/min Estimated GFR (MDRD) 56.1 ml/min Glucose 95 (74-106) mg/dL POC Glucose 97 (60-110) mg/dL Calcium 9.3 (8.5-10.1) mg/dL Total Bilirubin 0.3 (0.2-1.0) mg/dL AST 23 (15-37) IU/L ALT 26 (14-63) IU/L Alkaline Phosphatase 86 (46-116) U/L Troponin I < 0.050 (0.000-0.056) ng/mL Total Protein 7.6 (6.4-8.2) g/dL Albumin 3.7 (3.4-5.0) g/dL Globulin 3.9 (2.6-4.0) g/dL Albumin/Globulin Ratio 0.9 (0.9-1.6) Ethyl Alcohol 170 mg/dL Meds: Medications Generic Name Dose Route Start Last Admin Trade Name Freq PRN Reason Stop Dose Admin Sodium Chloride 10 ml 11/06/20 21:22 11/06/20 21:35 Saline Flush FLUSH 10 ml ASDIRECTED PRN Administration Keep Vein Open Sodium Chloride 2.5 ml 11/06/20 21:22 11/06/20 21:35 Saline Flush FLUSH 2.5 ml ASDIRECTED PRN Administration Keep Vein Open Discontinued Medications Generic Name Dose Route Start Last Admin Trade Name Freq PRN Reason Stop Dose Admin Albuterol/Ipratropium 3 ml 11/06/20 21:22 11/06/20 21:29 Duoneb 3.0-0.5 Mg/3 Ml NEB 11/06/20 21:23 3 ml ONETIME ONE Administration Albuterol/Ipratropium Confirm 11/06/20 21:26 11/06/20 21:34 Duoneb 3.0-0.5 Mg/3 Ml Administered 11/06/20 21:27 Not Given Dose 3 ml .ROUTE .STK-MED ONE Sodium Chloride 1,000 mls @ 999 mls/hr 11/06/20 21:22 11/06/20 21:29 Normal Saline IV 11/06/20 22:22 999 mls/hr .Bolus ONE Administration Methylprednisolone Sodium Succinate 125 mg 11/06/20 21:22 11/06/20 21:28 Solu-Medrol IVPUSH 11/06/20 21:23 125 mg ONETIME ONE Administration Methylprednisolone Sodium Succinate Confirm 11/06/20 21:26 11/06/20 21:35 Solu-Medrol Administered 11/06/20 21:27 Not Given Dose 125 mg .ROUTE .STK-MED ONE Ondansetron HCl 4 mg 11/06/20 21:22 11/06/20 21:28 Zofran IVPUSH 11/06/20 21:23 4 mg ONETIME ONE Administration Departure - Departure Time of Disposition: 22:46 Disposition: Home, Self-Care 01 Condition: Good Clinical Impression: COPD exacerbation, Noncompliance with medications Alcohol intoxication Qualifiers: Complication of substance-induced condition: with unspecified complication Qualified Code(s): F10.929 - Alcohol use, unspecified with intoxication, unspecified - Discharge Information Instructions: Chronic Obstructive Pulmonary Disease Exacerbation, [id number], Alcohol Intoxication, [id number] Referrals: PCP,None [Ordering Only Provider] - Forms: ED Department Discharge Additional Instructions: You have been seen and evaluated in the ER today secondary to shortness of breath and flareup of your COPD/asthma. Please see your doctor tomorrow to see if they can assist you with getting your insurance issues sorted through so that you get your medications. Please continue taking a prescription for prednisone that was provided for you by Dr. Zavala on November 02. The following information is given to patients seen in the emergency department who are being discharged to home. This information is to outline your options for follow-up care. We provide all patients seen in our emergency department wit h a follow-up referral. The need for follow-up, as well as the timing and circumstances, are variable depending upon the specifics of your emergency department visit. If you don't have a primary care physician on staff, we will provide you with a referral. We always advise you to contact your personal physician following an emergency department visit to inform them of the circumstance of the visit and for follow-up with them and/or the need for any referrals to a consulting specialist. The emergency department will also refer you to a specialist when appropriate. This referral assures that you have the opportunity for follow-up care with a specialist. All of these measure are taken in an effort to provide you with optimal care, which includes your follow-up. Under all circumstances we always encourage you to contact your private physician who remains a resource for coordinating your care. When calling for follow-up care, please make the office aware that this follow-up is from your recent emergency room visit. If for any reason you are refused follow-up, please contact the [facility] Emergency Department at and asked to speak to the emergency department charge nurse. [facility] - Primary [facility] [address] [place] [id number] [address] Sepsis Event Note (ED) - Evaluation Sepsis Screening Result: No Definite Risk - Focused Exam Vital Signs: Vital Signs Temp Pulse Resp BP Pulse Ox 11/06/20 21:04 98.1 F 88 20 151/74 H 97 - My Orders Last 24 Hours: My Active Orders 11/06/20 21:22 EKG Documentation Completion [RC] AM Sodium Chloride 0.9% [Saline Flush] 10 ml FLUSH ASDIRECTED PRN Sodium Chloride 0.9% [Saline Flush] 2.5 ml FLUSH ASDIRECTED PRN Saline Lock Insert [OM.PC] Stat - Assessment/Plan Last 24 Hours: My Active Orders 11/06/20 21:22 EKG Documentation Completion [RC] AM Sodium Chloride 0.9% [Saline Flush] 10 ml FLUSH ASDIRECTED PRN Sodium Chloride 0.9% [Saline Flush] 2.5 ml FLUSH ASDIRECTED PRN Saline Lock Insert [OM.PC] Stat
[2020-11-06] MEDS ORDERED: methylPREDNISolone Sodium Succinate 125 MG/2 ML SDV ONE (21:26)
[2020-11-06] MEDS ORDERED: Albuterol/Ipratropium 3.0-0.5 MG/3 ML Neb Soln ONE (21:26)
[2020-11-06 21:45] LABS: BLOOD UREA NITROGEN,BUN 19 mg/dL (7.0-18.0); CARBON DIOXIDE,CO2 18.7 mmol/L (21.0-32.0); CHLORIDE,CL 101 mmol/L (98-107); GLUCOSE RANDOM 95 mg/dL (74-106); POTASSIUM,K 3.9 mmol/L (3.5-5.1); SODIUM,NA 140 mmol/L (136-145)
--- NOTE | 2020-11-06 21:54 | CR ---
INDICATION: Short of breath. COMPARISON: 11/02/2020. FINDINGS: A portable AP upright view of the chest was obtained. The cardiac silhouette and pulmonary vasculature are within normal limits. The lungs are clear bilaterally. IMPRESSION: Stable chest x-ray. No evidence of acute pulmonary disease. Dictated by Brennan Nance MD @ Nov 06 2020 9:51PM Signed by Dr. Brennan Nance @ Nov 06 2020 9:52PM
[2020-11-06 23:08] VITALS: BP 132/74; PULSE 89
== END 2020-11-06 23:08 | disposition home or self-care (01) ==
LOC: MW.ED 20:45
DX: J44.1 Chronic obstructive pulmonary disease with (acute) exacerbation (principal); F10.129 Alcohol abuse with intoxication, unspecified; I10 Essential (primary) hypertension; E11.9 Type 2 diabetes mellitus without complications; E78.00 Pure hypercholesterolemia, unspecified; Y90.6 Blood alcohol level of 120-199 mg/100 ml; Z79.84 Long term (current) use of oral hypoglycemic drugs; Z79.899 Other long term (current) drug therapy; Z91.013 Allergy to seafood; Z91.14 Patient's other noncompliance with medication regimen; Z86.73 Personal history of transient ischemic attack (TIA), and cerebral infarction without residual deficits; Z72.0 Tobacco use
CPT/HCPCS: 36415; 71045; 80053; 80179; 82962; 84484; 85025; 93005; 96374; 96375; 99285; J2405; J2930; J7030; J7620-GY

== ENCOUNTER 2020-11-08 20:03 | Emergency (ER) | payer MEDICAID ==
[2020-11-08] MEDS ORDERED: Albuterol/Ipratropium 3.0-0.5 MG/3 ML Neb Soln NEB ONE ×2 (20:34→22:07)
[2020-11-08] MEDS ORDERED: MVI, Adult with Vitamin K 10 ML, Thiamine 100 MG, Folic Acid 1 MG in Sodium Chloride 0.... IV ONE ×4 (20:39)
--- NOTE | 2020-11-08 21:04 | PCM.SN.2 ---
- Free Text/Narrative Note: EKG: As interpreted by ER physician: Amy: Nonspecific ST-T wave abnormalities Right bundle branch block with occasional PVC. No significant changes from prior EKG No evidence of ST elevation [place] Normal sinus rhythm heart rate of 77
--- NOTE | 2020-11-08 21:06 | EDM.PDOCBH ---
<Michelle Loyola R - Last Filed: 11/08/20 21:50> ED HPI GENERAL MEDICAL PROBLEM - General Chief Complaint: Behavioral/Psych Time Seen by Provider: 11/08/20 20:12 Source of Information: Reports: Patient, Police History Limitations: Reports: No Limitations - History of Present Illness INITIAL COMMENTS - FREE TEXT/NARRATIVE: Presents with law enforcement. The attending officer states that the patient called [facility] requesting treatment for her alcoholism. The police were dispatched. They found the patient intoxicated. She told the responding officer that when she gets alcoholic shakes she goes into cardiac arrest and that is what she wanted to do today. This patient has been seen numerous times in this emergency room and was seen here 2 days ago for an asthma exacerbation. 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 She brings her medication bottles with her. She was not able to pickling operator her inhalers as her insurance did not kick in until very . The patient states that she is depressed due to the Covid pandemic, family disagreements, she lost her job, and she has been confined to her home. She states she drinks 1/2 L of alcohol daily and has for the last four years. She states she is in a depressed mood 7 out of 7 days a week. She has lost all interest and pleasure in doing things. She has difficulties both getting and staying to sleep. She denies previous suicidal attempts but does say that she would like to drink herself to . She lives alone, is not in a relationship, is not sexually active. She states her son lives down the street. She has a history of diabetes, hypertension, depression, obesity and asthma. She does have a local medical provider with up-to-date prescription bottles. She denies recreational drug use. She currently reports that she is wheezy, short of breath and has some chest pain. After the interview she stated all she came in for was a breathing treatment and wanted to go home. I reminded her that she called [place] to get some help for her alcoholism and that she told the responding officer, the nursing staff and myself that she wanted to drink herself to . She had stated that she knows that once she drinks enough and gets the shakes that she will go into cardiac arrest. - Related Data Allergies Allergy/AdvReac Type Severity Reaction Status Date / Time crab Allergy Hives Verified 11/06/20 21:04 Home Meds: Home Meds atorvaSTATin [Lipitor] 40 mg PO BEDTIME 90 Days #30 tab 04/18/18 [Rx] Glimepiride [Amaryl] 2 mg PO DAILY 07/22/18 [History] metFORMIN HCl [Metformin HCl] 500 mg PO BID 06/23/19 [History] Albuterol/Ipratropium [DuoNeb 3.0-0.5 MG/3 ML] 3 ml NEB Q6H PRN #60 neb 06/24/19 [Rx] Albuterol [Ventolin HFA] 2 puff INH Q4HR PRN #1 inhaler 10/15/20 [Rx] Folic Acid 1 mg PO BEDTIME #30 tab 10/15/20 [Rx] Lisinopril/Hydrochlorothiazide [Lisinopril-HCTZ 10-12.5 MG] 10 - 12.5 mg PO DAILY #30 tab 10/15/20 [Rx] amLODIPine [Norvasc] 10 mg PO DAILY #60 tablet 10/15/20 [Rx] Albuterol [Proventil Neb Soln] 2.5 mg NEB Q4HRRT PRN #50 cup 11/02/20 [Rx] predniSONE [Prednisone] 50 mg PO DAILY #5 tablet 11/02/20 [Rx] Aspirin [Aspirin EC] 81 mg PO DAILY 11/08/20 [History] Mecobalamin [B12 Active] 500 mcg PO DAILY 11/08/20 [History] Sertraline [Zoloft] 100 mg PO DAILY 11/08/20 [History] Past Medical History HEENT History: Reports: Other (See Below) Other HEENT History: ear infection Cardiovascular History: Reports: High Cholesterol, Hypertension Respiratory History: Reports: Asthma, Sleep Apnea Gastrointestinal History: Reports: GERD Genitourinary History: Reports: None 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 RECORDER 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 History: 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 Musculoskeletal History: Reports: Other (See Below) Other Musculoskeletal History: ankle fracture - 2013 Neurological History: Reports: TIA Psychiatric History: Reports: None Endocrine/Metabolic History: Reports: Diabetes, Type II Hematologic History: Reports: None Immunologic History: Reports: None Oncologic (Cancer) History: Reports: None Dermatologic History: Reports: None - Infectious Disease History Infectious Disease History: Reports: Chicken Pox, Measles, Mumps - Past Surgical History HEENT Surgical History: Reports: None Cardiovascular Surgical History: Reports: None Respiratory Surgical History: Reports: None GI Surgical History: Reports: None Female Surgical History: Reports: None Endocrine Surgical History: Reports: None Neurological Surgical History: Reports: None Musculoskeletal Surgical History: Reports: Other (See Below) Other Musculoskeletal Surgeries/Procedures:: broke Left ankle Dermatological Surgical History: Reports: None Social & Family History - Family History Family Medical History: No Pertinent Family History Cardiac: Reports: Hypertension, ID Respiratory: Reports: Asthma OBGYN: Reports: Musculoskeletal: Reports: Arthritis Neurological: Reports: CVA Endocrine/Metabolic: Reports: Diabetes, type II - Caffeine Use Caffeine Use: Reports: None - Recreational Drug Use Recreational Drug Use: No ED ROS GENERAL - Review of Systems Review Of Systems: Comprehensive ROS is negative, except as noted in HPI. ED EXAM, BEHAVIORAL HEALTH - Physical Exam Exam: See Below Exam Limited By: No Limitations General Appearance: Alert, No Apparent Distress Ears: Normal External Exam Nose: Normal Inspection Throat/Mouth: Normal Inspection Head: Atraumatic, Normocephalic Neck: Normal Inspection Respiratory/Chest: No Respiratory Distress, Lungs Clear, Wheezing (High-pitched tight wheezes throughout) Cardiovascular: Normal Peripheral Pulses, Regular Rate, Rhythm, No Edema GI/Abdominal: Soft, Non-Tender, No Distention Extremities: Normal Inspection Neurological: Alert Psychiatric: Alert, Oriented Skin Exam: Warm, Dry, Intact, Normal color, No rash COURSE, BEHAVIORAL HEALTH COMP - Course Medical Clearance: 11/08/20 21:50 Wheezing has improved but continues to have scattered wheezes throughout the lung rick. She reports being quite hungry and was given a couple sandwiches applesauce and milk to drink. She complained of being shaky so she was treated with 1 mg of IV Ativan. She states that she is tired and is going to take a nap when she gets done eating. She states she is willing and happy to go to my not if she can get treatment. Departure - Departure Disposition: Home, Self-Care 01 Clinical Impression: Alcohol abuse, Depressive disorder - Discharge Information Instructions: Alcohol Use Disorder Referrals: Walter Romero MD [Primary Care Provider] - Forms: ED Department Discharge Additional Instructions: Your seen and evaluated in the ER today secondary to your alcohol use disorder. At this time, you are not showing any signs or symptoms consistent with alcohol withdrawal. You will be discharged home with instructions to call your doctor on Tuesday to assist you with getting into an alcohol rehab program. Also we are recommending that you call [facility] in the morning so they can assist you with your alcohol use disorder. You have been discharged home also with an albuterol inhaler to assist you with your COPD. Please continue utilizing her medication including steroids as directed. The following information is given to patients seen in the emergency department who are being discharged to home. This information is to outline your options for follow-up care. We provide all patients seen in our emergency department with a follow-up referral. The need for follow-up, as well as the timing and circumstances, are variable depending upon the specifics of your emergency department visit. If you don't have a primary care physician on staff, we will provide you with a referral. We always advise you to contact your personal physician following an emergency department visit to inform them of the circumstance of the visit and for follow-up with them and/or the need for any referrals to a consulting specialist. The emergency department will also refer you to a specialist when appropriate. This referral assures that you have the opportunity for follow-up care with a specialist. All of these measure are taken in an effort to provide you with optimal care, which includes your follow-up. Under all circumstances we always encourage you to contact your private physician who remains a resource for coordinating your care. When calling for follow-up care, please make the office aware that this follow-up is from your recent emergency room visit. If for any reason you are refused follow-up, please contact the [facility] Emergency Department at and asked to speak to the emergency department charge nurse. [facility] [address] [place] [id number] [address] Sepsis Event Note (ED) - Evaluation Sepsis Screening Result: No Definite Risk <Kurt Reyes - Last Filed: 11/08/20 22:53> ED HPI GENERAL MEDICAL PROBLEM - History of Present Illness INITIAL COMMENTS - FREE TEXT/NARRATIVE: Signout received at 10 PM. This is a 55-year-old female with history significant for alcohol use disorder as well as COPD. Patient presents ER today by law enforcement secondary to intoxication. Patient was requesting assistance with her alcohol use disorder. There was some concern regarding patient having SI however patient reports that she times wants to drink herself to . At this time the patient is not actively suicidal. Patient reports that she does want assistance with alcohol detox. Patient reports that she has no desire to harm herself intentionally. At this time, I do not feel that the patient would benefit from transfer to [facility] for inpatient psychiatric evaluation for suicidality as I do not feel that the patient currently is having suicidal ideation. Patient will be discharged to home with instructions to follow-up with [facility]. Patient also complained of shortness of breath and wheezing. Patient has been given 2 albuterol neb treatments here in the ED and does feel significantly improved. Patient be sent home with an albuterol MDI given her difficulty to access it through her insurance secondary to restrictions with her insurance. Patient currently has clear lung without any wheezing rales or rhonchi. Patient is resting comfortably in the ED without any other complaints. I have discussed with the patient to give her physician a call on Tuesday so that they can assist her with her COPD as well as assisting her with getting into an appropriate alcohol detox program. Reassessment at the time of disposition demonstrates that the patient is in no acute distress. The patient has remained stable throughout the entire ED visit and is without objective evidence for acute process requiring urgent intervention or hospitalization. The patient is stable for discharge, counseling is provided as documented above, discussed symptomatic treatment and specific conditions for return. I have spoken with the patient/caregiver and discussed todays findings, in addition to providing specific details for the plan of care. Questions are answered and there is agreement with the plan. COURSE, BEHAVIORAL HEALTH COMP - Course Vital Signs: Last Vital Signs Temp 98.6 F 11/08/20 20:16 Pulse 91 11/08/20 20:16 Resp 16 11/08/20 20:16 BP 133/69 11/08/20 20:16 Pulse Ox 96 11/08/20 20:16 Orders, Labs, Meds: Active Orders 24 hr Category Date Time Status EKG Documentation Completion [RC] STAT Care 11/08/20 20:27 Active RT Aerosol Therapy [RC] ASDIRECTED Care 11/08/20 20:34 Active RT Aerosol Therapy [RC] ASDIRECTED Care 11/08/20 22:08 Active RT Post Treatment Assessment [RC] Click to Edit Care 11/08/20 22:09 Active RT Pre-Treatment Assessment [RC] Click to Edit Care 11/08/20 22:09 Active DRUG SCREEN, URINE [URCHEM] Stat Lab 11/08/20 20:27 Ordered UA W/MICROSCOPIC [URIN] Stat Lab 11/08/20 20:27 Ordered MVI, Adult with Vitamin K [Infuvite Adult] 10 ml Med 11/08/20 20:39 Active Thiamine [Vitamin B-1] 100 mg Folic Acid 1 mg Sodium Chloride 0.9% [Normal Saline] 1,000 ml IV ONETIME Medication Orders Multivitamins/Minerals 10 ml/Thiamine HCl 100 mg/ Folic Acid 1 mg/ Sodium Chloride 1,011.2 mls @ 200 mls/hr IV ONETIME ONE Stop: 11/09/20 01:42 Last Admin: 11/08/20 21:22 Dose: 200 mls/hr Documented by: CARLOS MANUEL Laboratory Tests 11/08/20 11/08/20 11/08/20 Range/Units 20:23 21:10 21:10 WBC 10.93 (4.0-11.0) K/uL RBC 3.92 L (4.30-5.90) M/uL Hgb 11.4 L (12.0-16.0) g/dL Hct 34.4 L (36.0-46.0) % MCV 87.8 (80.0-98.0) fL MCH 29.1 (27.0-32.0) pg MCHC 33.1 (31.0-37.0) g/dL RDW Std Deviation 47.9 (28.0-62.0) fl RDW Coeff of Jeannette 15 (11.0-15.0) % Plt Count 222 (150-400) K/uL MPV 10.50 (7.40-12.00) fL Neut % (Auto) 75.2 (48.0-80.0) % Lymph % (Auto) 18.3 (16.0-40.0) % [place] % (Auto) 6.4 (0.0-15.0) % Eos % (Auto) 0.0 (0.0-7.0) % Baso % (Auto) 0.1 (0.0-1.5) % Neut # (Auto) 8.2 H (1.4-5.7) K/uL Lymph # (Auto) 2.0 (0.6-2.4) K/uL [place] # (Auto) 0.7 (0.0-0.8) K/uL Eos # (Auto) 0.0 (0.0-0.7) K/uL Baso # (Auto) 0.0 (0.0-0.1) K/uL Nucleated RBC % 0.0 /100WBC Nucleated RBCs # 0 K/uL Sodium 137 (136-145) mmol/L Potassium 3.8 (3.5-5.1) mmol/L Chloride 99 (98-107) mmol/L Carbon Dioxide 22.1 (21.0-32.0) mmol/L BUN 22 H (7.0-18.0) mg/dL Creatinine 1.1 H (0.6-1.0) mg/dL Est Cr Clr Drug Dosing 54.87 mL/min Estimated GFR (MDRD) > 60.0 ml/min Glucose 69 L (74-106) mg/dL POC Glucose 82 (60-110) mg/dL Calcium 9.3 (8.5-10.1) mg/dL Magnesium 2.1 (1.8-2.4) mg/dL Total Bilirubin 0.2 (0.2-1.0) mg/dL AST 24 (15-37) IU/L ALT 28 (14-63) IU/L Alkaline Phosphatase 71 (46-116) U/L Troponin I < 0.050 (0.000-0.056) ng/mL Total Protein 7.3 (6.4-8.2) g/dL Albumin 3.7 (3.4-5.0) g/dL Globulin 3.6 (2.6-4.0) g/dL Albumin/Globulin Ratio 1.0 (0.9-1.6) TSH 3rd Generation 0.36 (0.36-3.74) uIU/mL Salicylates 3.1 (0-20) mg/dL Acetaminophen <2.0 ug/mL Ethyl Alcohol 107 mg/dL SARS-CoV-2 RNA ([place]) (NEGATIVE) 11/08/20 Range/Units 21:32 WBC (4.0-11.0) K/uL RBC (4.30-5.90) M/uL Hgb (12.0-16.0) g/dL Hct (36.0-46.0) % MCV (80.0-98.0) fL MCH (27.0-32.0) pg MCHC (31.0-37.0) g/dL RDW Std Deviation (28.0-62.0) fl RDW Coeff of Jeannette (11.0-15.0) % Plt Count (150-400) K/uL MPV (7.40-12.00) fL Neut % (Auto) (48.0-80.0) % Lymph % (Auto) (16.0-40.0) % [place] % (Auto) (0.0-15.0) % Eos % (Auto) (0.0-7.0) % Baso % (Auto) (0.0-1.5) % Neut # (Auto) (1.4-5.7) K/uL Lymph # (Auto) (0.6-2.4) K/uL [place] # (Auto) (0.0-0.8) K/uL Eos # (Auto) (0.0-0.7) K/uL Baso # (Auto) (0.0-0.1) K/uL Nucleated RBC % /100WBC Nucleated RBCs # K/uL Sodium (136-145) mmol/L Potassium (3.5-5.1) mmol/L Chloride (98-107) mmol/L Carbon Dioxide (21.0-32.0) mmol/L BUN (7.0-18.0) mg/dL Creatinine (0.6-1.0) mg/dL Est Cr Clr Drug Dosing mL/min Estimated GFR (MDRD) ml/min Glucose (74-106) mg/dL POC Glucose (60-110) mg/dL Calcium (8.5-10.1) mg/dL Magnesium (1.8-2.4) mg/dL Total Bilirubin (0.2-1.0) mg/dL AST (15-37) IU/L ALT (14-63) IU/L Alkaline Phosphatase (46-116) U/L Troponin I (0.000-0.056) ng/mL Total Protein (6.4-8.2) g/dL Albumin (3.4-5.0) g/dL Globulin (2.6-4.0) g/dL Albumin/Globulin Ratio (0.9-1.6) TSH 3rd Generation (0.36-3.74) uIU/mL Salicylates (0-20) mg/dL Acetaminophen ug/mL Ethyl Alcohol mg/dL SARS-CoV-2 RNA ([place]) NEGATIVE (NEGATIVE) Medications Generic Name Dose Route Start Last Admin Trade Name Freq PRN Reason Stop Dose Admin Multivitamins/Minerals 10 ml/ 1,011.2 mls @ 200 mls/hr 11/08/20 20:39 11/08/20 21:22 Thiamine HCl 100 mg/ Folic IV 11/09/20 01:42 200 mls/hr Acid 1 mg/ Sodium Chloride ONETIME ONE Administration Discontinued Medications Generic Name Dose Route Start Last Admin Trade Name Freq PRN Reason Stop Dose Admin Albuterol 1 gm 11/08/20 22:08 Ventolin Hfa INH 11/08/20 22:09 QID STA Albuterol/Ipratropium 3 ml 11/08/20 20:34 11/08/20 20:43 Duoneb 3.0-0.5 Mg/3 Ml NEB 11/08/20 20:35 3 ml ONETIME ONE Administration Albuterol/Ipratropium 3 ml 11/08/20 22:07 Duoneb 3.0-0.5 Mg/3 Ml NEB 11/08/20 22:08 ONETIME ONE Lorazepam 1 mg 11/08/20 21:25 11/08/20 21:31 Ativan IVPUSH 11/08/20 21:26 1 mg ONETIME ONE Administration Departure - Departure Time of Disposition: 22:52 Sepsis Event Note (ED) - Focused Exam Vital Signs: Vital Signs Temp Pulse Resp BP Pulse Ox 11/08/20 20:16 98.6 F 91 16 133/69 96 - My Orders Last 24 Hours: My Active Orders 11/08/20 22:08 RT Aerosol Therapy [RC] ASDIRECTED 11/08/20 22:09 RT Post Treatment Assessment [RC] Click to Edit RT Pre-Treatment Assessment [RC] Click to Edit - Assessment/Plan Last 24 Hours: My Active Orders 11/08/20 22:08 RT Aerosol Therapy [RC] ASDIRECTED 11/08/20 22:09 RT Post Treatment Assessment [RC] Click to Edit RT Pre-Treatment Assessment [RC] Click to Edit
[2020-11-08] MEDS ORDERED: LORazepam 2 MG/ML SDV IVPUSH ONE (21:25)
[2020-11-08 21:49] LABS: BLOOD UREA NITROGEN,BUN 22 mg/dL (7.0-18.0); CARBON DIOXIDE,CO2 22.1 mmol/L (21.0-32.0); CHLORIDE,CL 99 mmol/L (98-107); GLUCOSE RANDOM 69 mg/dL (74-106); POTASSIUM,K 3.8 mmol/L (3.5-5.1); SODIUM,NA 137 mmol/L (136-145)
[2020-11-08 21:55] LABS: ACETAMINOPHEN <2.0 ug/mL
[2020-11-08] MEDS ORDERED: Albuterol HFA 18 Gm Inhaler INH STA (22:08)
[2020-11-08] MEDS ORDERED: Albuterol 8 GM Inhaler INH ONE (22:53)
[2020-11-08] MEDS ORDERED: Albuterol 6.7 GM Inhaler INH ONE (22:56)
[2020-11-08 23:25] VITALS: BP 122/62; PULSE 83
== END 2020-11-08 23:04 | disposition home or self-care (01) ==
LOC: MW.ED 20:03
DX: F10.20 Alcohol dependence, uncomplicated (principal); F32.9 Major depressive disorder, single episode, unspecified; E78.00 Pure hypercholesterolemia, unspecified; I10 Essential (primary) hypertension; J45.909 Unspecified asthma, uncomplicated; E11.9 Type 2 diabetes mellitus without complications; E66.9 Obesity, unspecified; Y90.5 Blood alcohol level of 100-119 mg/100 ml; Z79.84 Long term (current) use of oral hypoglycemic drugs; Z79.899 Other long term (current) drug therapy; Z79.82 Long term (current) use of aspirin; Z86.73 Personal history of transient ischemic attack (TIA), and cerebral infarction without residual deficits; Z91.018 Allergy to other foods; Z20.822 Contact with and (suspected) exposure to COVID-19
CPT/HCPCS: 36415; 80053; 80143; 80179; 80307; 82962; 83735; 84443; 84484; 85025; 87635; 93005; 96365; 96366; 96375; 99285; A9270; J2060; J3411; J7030; 93010; 99283; J3535-GY; J7620-GY; U0002

== ENCOUNTER 2020-11-09 14:30 | Emergency (ER) | payer MEDICAID ==
[2020-11-09] MEDS ORDERED: MVI, Adult with Vitamin K 10 ML, Thiamine 100 MG, Folic Acid 1 MG in Sodium Chloride 0.... IV ONE ×4 (14:39)
[2020-11-09] MEDS ORDERED: Sodium Chloride 0.9% 10 ML Syringe FLUSH PRN (14:39)
[2020-11-09] MEDS ORDERED: Sodium Chloride 0.9% 2.5 ML Syringe FLUSH PRN (14:39)
--- NOTE | 2020-11-09 14:45 | EDM.PDOCBH ---
ED HPI GENERAL MEDICAL PROBLEM - General Chief Complaint: Behavioral/Psych Stated Complaint: MENTAL HEALTH/MED CLEARANCE Time Seen by Provider: 11/09/20 14:33 Source of Information: Reports: Patient History Limitations: Reports: No Limitations - History of Present Illness INITIAL COMMENTS - FREE TEXT/NARRATIVE: HISTORY AND PHYSICAL: History of present illness: Patient is a 55-year-old female who presents to the emergency room with law enforcement and [facility] requesting evaluation and transfer of patient to [facility]. Over the past several months patient states she has been depressed due to COVID pandemic, family dynamic and the loss of her job. She was seen yesterday in the emergency room for her alcohol abuse. She had lab work and was ultimately released to return home with close follow up with [facility]. She reports she drank a liter of vodka this afternoon (typically drinks 1/2 - 1 liter of vodka daily) and went to [facility] for evaluation. Patient told the wearing apparel assembler that she wanted to overdose on her medications if she does not get inpatient alcohol treatment. Patient states that 3 days ago she took a handful of pills to help her sleep in hopes that she would have overdosed and not wake up. Patient was evaluated in our emergency room yesterday and did not mention this. [facility] has called and made arrangements for patient to be admitted to [facility]. Mcalester would like her evaluated and treated for her likely detox of alcohol and to be monitored for a few hours before being transferred (per [facility]). Past medical history of COPD, DM II, TIA, HTN, medication noncompliance and chronic alcohol abuse. Today she is unsure the last time she took her medications (few days to weeks). She offers no systemic complaints other than her depression. Patient denies any fever, chills, headache, change in vision, syncope or near syncope. Denies any chest pain, back pain, shortness of breath o r cough. Denies any abdominal pain, nausea, vomiting, diarrhea, constipation or dysuria. Has not noted any blood in urine or stool. Patient has been eating and drinking appropriately. Review of systems: As per history of present illness and below otherwise all systems reviewed and negative. Past medical history: As per history of present illness and as reviewed below otherwise noncontributory. Surgical history: As per history of present illness and as reviewed below otherwise noncontributory. Social history: See social history for further information Family history: As per history of present illness and as reviewed below otherwise noncontributory. Physical exam: General: Well developed and well nourished 55 year old black female. Alert and orientated x 3. Nontoxic in appearance and in no acute distress. Vital signs are stable and have been reviewed by me. Nursing notes were reviewed. HEENT: Atraumatic, normocephalic, pupils equal and reactive bilaterally, negative for conjunctival pallor or scleral icterus, mucous membranes moist, TMs normal bilaterally, throat clear, neck supple, nontender, trachea midline. No drooling or trismus noted. No meningeal signs. No hot potato voice noted. Lungs: Clear to auscultation bilaterally. No wheezes, rales, or rhonchi. Chest nontender. Normal work of breathing, no accessory muscles used. Heart: S1S2, regular rate and rhythm without overt murmur, gallops, or rubs. No JVD. No peripheral edema Abdomen: Soft, nondistended, nontender. Normoactive bowel sounds. Negative for masses or costovertebral tenderness. Skin: Intact, warm, dry. No lesions or rashes noted. Hematologic: No petechiae or purpra. Mucosa appropriate color and normal nail bed color and refill. Extremities: Atraumatic, moves all extremities per self without difficulty or deficits, negative for cords or calf pain. Neurovascular unremarkable. Neuro: Awake, alert, oriented. Cranial nerves II through XII unremarkable. Cerebellum unremarkable. Motor and sensory unremarkable throughout. Exam nonfocal. Psychiatric: Mood and affect are appropriate. Normal thought process. Answering questions appropriately. Notes: *This patient was seen and evaluated during the 2019 SARS-CoV-2 novel coronavirus pandemic period. Community viral transmission is ongoing at time of this encounter and the emergency department is operating under pandemic response procedures. Casa Yee, [facility] worker, accompanied patient to the ED. He has arranged patient to be transferred to [facility] once the patient has had 12 hours of observation. Casa's contact number is . She just had labs done yesterday with negative COVID. TSH WNL. Will not repeat those today. She is agreeable to basic labs redrawn today. Her blood pressure is elevated, but she hasn't been taking her medication. 1745: Dr Mary Kay Younger states that [facility] does not have any availability. After further discussing the case with her she states the patient does not meet criteria for their facility. 1750: Spoke with Casa Yee at [facility] said he will talk with his supervisor rice milling about possibility of admission to their CRU unit. 1755: [facility] will not take this patient. They recommend the patient be admitted or transferred to a another facility. 1825: [facility] is at capacity; unable to take this patient. 1900: [facility] [place] is at capacity; unable to take this patient. Patient states she has not taken her inhalers in a few hours and is requesting a breathing treatment as she is having chest tightness related to her COPD. She does have some audible expiratory wheezing noted, breathing treatment was given. Vital signs are stable. Patient is anxious to be transferred. She states she would like to sleep in "her bed" referring to wherever she is being transferred to. She again states that if she is sent home she will overdose on "any pills I can get my hands on". 2015: Dr Lewis, Psychiatrist at [facility], is agreeable to accepting this patient. Patient is aware and agreeable to plan of care for transfer. She offers no current complaints or concerns. Vital signs are stable. We will continue to monitor. Diagnostics: CBC, CMP, UA, HCGU, ETOH, Drug Screen, EKG Therapeutics: Banana Bag, Ativan, Duo-Neb Impression: Alcohol abuse Suicidal ideation Plan: Transfer via BLS to [place]. Definitive disposition and diagnosis as appropriate pending reevaluation and review of above. - Related Data Allergies Allergy/AdvReac Type Severity Reaction Status Date / Time crab Allergy Hives Verified 11/09/20 14:44 Home Meds: Home Meds atorvaSTATin [Lipitor] 40 mg PO BEDTIME 90 Days #30 tab 04/18/18 [Rx] Glimepiride [Amaryl] 2 mg PO DAILY 07/22/18 [History] metFORMIN HCl [Metformin HCl] 500 mg PO BID 06/23/19 [History] Albuterol/Ipratropium [DuoNeb 3.0-0.5 MG/3 ML] 3 ml NEB Q6H PRN #60 neb 06/24/19 [Rx] Albuterol [Ventolin HFA] 2 puff INH Q4HR PRN #1 inhaler 10/15/20 [Rx] Folic Acid 1 mg PO BEDTIME #30 tab 10/15/20 [Rx] Lisinopril/Hydrochlorothiazide [Lisinopril-HCTZ 10-12.5 MG] 10 - 12.5 mg PO DAILY #30 tab 10/15/20 [Rx] amLODIPine [Norvasc] 10 mg PO DAILY #60 tablet 10/15/20 [Rx] Albuterol [Proventil Neb Soln] 2.5 mg NEB Q4HRRT PRN #50 cup 11/02/20 [Rx] predniSONE [Prednisone] 50 mg PO DAILY #5 tablet 11/02/20 [Rx] Aspirin [Aspirin EC] 81 mg PO DAILY 11/08/20 [History] Mecobalamin [B12 Active] 500 mcg PO DAILY 11/08/20 [History] Sertraline [Zoloft] 100 mg PO DAILY 11/08/20 [History] Past Medical History HEENT History: Reports: Other (See Below) Other HEENT History: ear infection Cardiovascular History: Reports: High Cholesterol, Hypertension Respiratory History: Reports: Asthma, Sleep Apnea Gastrointestinal History: Reports: GERD Genitourinary History: Reports: None LIGHTOUT EXAMINER History: Reports: Other LIGHTOUT EXAMINER History: 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 Musculoskeletal History: Reports: Other (See Below) Other Musculoskeletal History: ankle fracture - 2013 Neurological History: Reports: TIA Psychiatric History: Reports: None Endocrine/Metabolic History: Reports: Diabetes, Type II Hematologic History: Reports: None Immunologic History: Reports: None Oncologic (Cancer) History: Reports: None Dermatologic History: Reports: None - Infectious Disease History Infectious Disease History: Reports: Chicken Pox, Measles, Mumps - Past Surgical History HEENT Surgical History: Reports: None Cardiovascular Surgical History: Reports: None Respiratory Surgical History: Reports: None GI Surgical History: Reports: None Female Surgical History: Reports: None Endocrine Surgical History: Reports: None Neurological Surgical History: Reports: None Musculoskeletal Surgical History: Reports: Other (See Below) Other Musculoskeletal Surgeries/Procedures:: broke Left ankle Dermatological Surgical History: Reports: None Social & Family History - Family History Family Medical History: No Pertinent Family History Cardiac: Reports: Hypertension, [place] Respiratory: Reports: Asthma OBGYN: Reports: Musculoskeletal: Reports: Arthritis Neurological: Reports: CVA Endocrine/Metabolic: Reports: Diabetes, type II - Caffeine Use Caffeine Use: Reports: None ED ROS GENERAL - Review of Systems Review Of Systems: Comprehensive ROS is negative, except as noted in HPI. ED EXAM, BEHAVIORAL HEALTH - Physical Exam Exam: See Below (See dictation) COURSE, BEHAVIORAL HEALTH COMP - Course Vital Signs: Last Vital Signs Temp 98.6 F 11/09/20 14:44 Pulse 82 11/09/20 17:31 Resp 16 11/09/20 17:31 BP 105/72 11/09/20 17:31 Pulse Ox 98 11/09/20 17:31 Orders, Labs, Meds: Active Orders 24 hr Category Date Time Status EKG Documentation Completion [RC] STAT Care 11/09/20 19:15 Active RT Aerosol Therapy [RC] ASDIRECTED Care 11/09/20 18:37 Active RT Aerosol Therapy [RC] ASDIRECTED Care 11/09/20 19:14 Active LORazepam [Ativan] Med 11/09/20 21:38 Once 1 mg IVPUSH ONETIME ONE Sodium Chloride 0.9% [Normal Saline] 1,000 ml Med 11/09/20 18:37 Active IV STAT Sodium Chloride 0.9% [Saline Flush] Med 11/09/20 14:39 Active 10 ml FLUSH ASDIRECTED PRN Sodium Chloride 0.9% [Saline Flush] Med 11/09/20 14:39 Active 2.5 ml FLUSH ASDIRECTED PRN Saline Lock Insert [OM.PC] Stat Oth 11/09/20 14:39 Ordered Medication Orders Sodium Chloride (Normal Saline) 1,000 mls @ 200 mls/hr IV STAT ONE Stop: 11/09/20 23:36 Last Admin: 11/09/20 19:10 Dose: 200 mls/hr Documented by: KANDISIC Sodium Chloride (Saline Flush) 10 ml FLUSH ASDIRECTED PRN PRN Reason: Keep Vein Open Last Admin: 11/09/20 15:34 Dose: 10 ml Documented by: GERARDO Sodium Chloride (Saline Flush) 2.5 ml FLUSH ASDIRECTED PRN PRN Reason: Keep Vein Open Last Admin: 11/09/20 15:34 Dose: 2.5 ml Documented by: GERARDO Laboratory Tests 02/11/09/20 11/09/20 Range/Units 15:24 15:24 15:24 WBC (4.0-11.0) K/uL RBC (4.30-5.90) M/uL Hgb (12.0-16.0) g/dL Hct (36.0-46.0) % MCV (80.0-98.0) fL MCH (27.0-32.0) pg MCHC (31.0-37.0) g/dL RDW Std Deviation (28.0-62.0) fl RDW Coeff of Jeannette (11.0-15.0) % Plt Count (150-400) K/uL MPV (7.40-12.00) fL Neut % (Auto) (48.0-80.0) % Lymph % (Auto) (16.0-40.0) % [place] % (Auto) (0.0-15.0) % Eos % (Auto) (0.0-7.0) % Baso % (Auto) (0.0-1.5) % Neut # (Auto) (1.4-5.7) K/uL Lymph # (Auto) (0.6-2.4) K/uL [place] # (Auto) (0.0-0.8) K/uL Eos # (Auto) (0.0-0.7) K/uL Baso # (Auto) (0.0-0.1) K/uL Nucleated RBC % /100WBC Nucleated RBCs # K/uL Sodium (136-145) mmol/L Potassium (3.5-5.1) mmol/L Chloride (98-107) mmol/L Carbon Dioxide (21.0-32.0) mmol/L BUN (7.0-18.0) mg/dL Creatinine (0.6-1.0) mg/dL Est Cr Clr Drug Dosing mL/min Estimated GFR (MDRD) ml/min Glucose (74-106) mg/dL Calcium (8.5-10.1) mg/dL Magnesium (1.8-2.4) mg/dL Total Bilirubin (0.2-1.0) mg/dL AST (15-37) IU/L ALT (14-63) IU/L Alkaline Phosphatase (46-116) U/L Troponin I (0.000-0.056) ng/mL Total Protein (6.4-8.2) g/dL Albumin (3.4-5.0) g/dL Globulin (2.6-4.0) g/dL Albumin/Globulin Ratio (0.9-1.6) Urine Color YELLOW Urine Appearance CLEAR Urine pH 6.0 (5.0-8.0) Ur Specific [place] 1.015 (1.001-1.035) Urine Protein NEGATIVE (NEGATIVE) mg/dL Urine Glucose (UA) NEGATIVE (NEGATIVE) mg/dL Urine Ketones NEGATIVE (NEGATIVE) mg/dL Urine Occult Blood NEGATIVE (NEGATIVE) Urine Nitrite NEGATIVE (NEGATIVE) Urine Bilirubin NEGATIVE (NEGATIVE) Urine Urobilinogen 0.2 (<2.0) EU/dL Ur Leukocyte Esterase NEGATIVE (NEGATIVE) Urine HCG, Qual NEGATIVE (NEGATIVE) Salicylates (0-20) mg/dL Urine Opiates Screen NEGATIVE (NEGATIVE) Ur Oxycodone Screen NEGATIVE (NEGATIVE) Urine Methadone Screen NEGATIVE (NEGATIVE) Acetaminophen ug/mL Ur Barbiturates Screen NEGATIVE (NEGATIVE) Ur Phencyclidine Scrn NEGATIVE (NEGATIVE) Ur Amphetamine Screen NEGATIVE (NEGATIVE) U Methamphetamines Scrn NEGATIVE (NEGATIVE) U Benzodiazepines Scrn POSITIVE (NEGATIVE) U Cocaine Metab Screen NEGATIVE (NEGATIVE) U Marijuana (THC) Screen NEGATIVE (NEGATIVE) Ethyl Alcohol mg/dL 11/09/20 11/09/20 11/09/20 Range/Units 15:30 15:30 15:30 WBC 6.81 (4.0-11.0) K/uL RBC 4.07 L (4.30-5.90) M/uL Hgb 11.7 L (12.0-16.0) g/dL Hct 36.0 (36.0-46.0) % MCV 88.5 (80.0-98.0) fL MCH 28.7 (27.0-32.0) pg MCHC 32.5 (31.0-37.0) g/dL RDW Std Deviation 48.8 (28.0-62.0) fl RDW Coeff of Jeannette 15 (11.0-15.0) % Plt Count 225 (150-400) K/uL MPV 10.40 (7.40-12.00) fL Neut % (Auto) 70.9 (48.0-80.0) % Lymph % (Auto) 20.3 (16.0-40.0) % [place] % (Auto) 8.4 (0.0-15.0) % Eos % (Auto) 0.3 (0.0-7.0) % Baso % (Auto) 0.1 (0.0-1.5) % Neut # (Auto) 4.8 (1.4-5.7) K/uL Lymph # (Auto) 1.4 (0.6-2.4) K/uL [place] # (Auto) 0.6 (0.0-0.8) K/uL Eos # (Auto) 0.0 (0.0-0.7) K/uL Baso # (Auto) 0.0 (0.0-0.1) K/uL Nucleated RBC % 0.0 /100WBC Nucleated RBCs # 0 K/uL Sodium 142 (136-145) mmol/L Potassium 3.9 (3.5-5.1) mmol/L Chloride 104 (98-107) mmol/L Carbon Dioxide 19.0 L (21.0-32.0) mmol/L BUN 25 H (7.0-18.0) mg/dL Creatinine 1.3 H (0.6-1.0) mg/dL Est Cr Clr Drug Dosing 46.43 mL/min Estimated GFR (MDRD) 51.2 ml/min Glucose 152 H (74-106) mg/dL Calcium 8.6 (8.5-10.1) mg/dL Magnesium 2.1 (1.8-2.4) mg/dL Total Bilirubin 0.4 (0.2-1.0) mg/dL AST 28 (15-37) IU/L ALT 32 (14-63) IU/L Alkaline Phosphatase 72 (46-116) U/L Troponin I (0.000-0.056) ng/mL Total Protein 7.0 (6.4-8.2) g/dL Albumin 3.4 (3.4-5.0) g/dL Globulin 3.6 (2.6-4.0) g/dL Albumin/Globulin Ratio 0.9 (0.9-1.6) Urine Color Urine Appearance Urine pH (5.0-8.0) Ur Specific [place] (1.001-1.035) Urine Protein (NEGATIVE) mg/dL Urine Glucose (UA) (NEGATIVE) mg/dL Urine Ketones (NEGATIVE) mg/dL Urine Occult Blood (NEGATIVE) Urine Nitrite (NEGATIVE) Urine Bilirubin (NEGATIVE) Urine Urobilinogen (<2.0) EU/dL Ur Leukocyte Esterase (NEGATIVE) Urine HCG, Qual (NEGATIVE) Salicylates 3.6 (0-20) mg/dL Urine Opiates Screen (NEGATIVE) Ur Oxycodone Screen (NEGATIVE) Urine Methadone Screen (NEGATIVE) Acetaminophen <2.0 ug/mL Ur Barbiturates Screen (NEGATIVE) Ur Phencyclidine Scrn (NEGATIVE) Ur Amphetamine Screen (NEGATIVE) U Methamphetamines Scrn (NEGATIVE) U Benzodiazepines Scrn (NEGATIVE) U Cocaine Metab Screen (NEGATIVE) U Marijuana (THC) Screen (NEGATIVE) Ethyl Alcohol 103 mg/dL 11/09/20 Range/Units 19:03 WBC (4.0-11.0) K/uL RBC (4.30-5.90) M/uL Hgb (12.0-16.0) g/dL Hct (36.0-46.0) % MCV (80.0-98.0) fL MCH (27.0-32.0) pg MCHC (31.0-37.0) g/dL RDW Std Deviation (28.0-62.0) fl RDW Coeff of Jeannette (11.0-15.0) % Plt Count (150-400) K/uL MPV (7.40-12.00) fL Neut % (Auto) (48.0-80.0) % Lymph % (Auto) (16.0-40.0) % [place] % (Auto) (0.0-15.0) % Eos % (Auto) (0.0-7.0) % Baso % (Auto) (0.0-1.5) % Neut # (Auto) (1.4-5.7) K/uL Lymph # (Auto) (0.6-2.4) K/uL [place] # (Auto) (0.0-0.8) K/uL Eos # (Auto) (0.0-0.7) K/uL Baso # (Auto) (0.0-0.1) K/uL Nucleated RBC % /100WBC Nucleated RBCs # K/uL Sodium (136-145) mmol/L Potassium (3.5-5.1) mmol/L Chloride (98-107) mmol/L Carbon Dioxide (21.0-32.0) mmol/L BUN (7.0-18.0) mg/dL Creatinine (0.6-1.0) mg/dL Est Cr Clr Drug Dosing mL/min Estimated GFR (MDRD) ml/min Glucose (74-106) mg/dL Calcium (8.5-10.1) mg/dL Magnesium (1.8-2.4) mg/dL Total Bilirubin (0.2-1.0) mg/dL AST (15-37) IU/L ALT (14-63) IU/L Alkaline Phosphatase (46-116) U/L Troponin I < 0.050 (0.000-0.056) ng/mL Total Protein (6.4-8.2) g/dL Albumin (3.4-5.0) g/dL Globulin (2.6-4.0) g/dL Albumin/Globulin Ratio (0.9-1.6) Urine Color Urine Appearance Urine pH (5.0-8.0) Ur Specific [place] (1.001-1.035) Urine Protein (NEGATIVE) mg/dL Urine Glucose (UA) (NEGATIVE) mg/dL Urine Ketones (NEGATIVE) mg/dL Urine Occult Blood (NEGATIVE) Urine Nitrite (NEGATIVE) Urine Bilirubin (NEGATIVE) Urine Urobilinogen (<2.0) EU/dL Ur Leukocyte Esterase (NEGATIVE) Urine HCG, Qual (NEGATIVE) Salicylates (0-20) mg/dL Urine Opiates Screen (NEGATIVE) Ur Oxycodone Screen (NEGATIVE) Urine Methadone Screen (NEGATIVE) Acetaminophen ug/mL Ur Barbiturates Screen (NEGATIVE) Ur Phencyclidine Scrn (NEGATIVE) Ur Amphetamine Screen (NEGATIVE) U Methamphetamines Scrn (NEGATIVE) U Benzodiazepines Scrn (NEGATIVE) U Cocaine Metab Screen (NEGATIVE) U Marijuana (THC) Screen (NEGATIVE) Ethyl Alcohol mg/dL Medications Generic Name Dose Route Start Last Admin Trade Name Freq PRN Reason Stop Dose Admin Sodium Chloride 1,000 mls @ 200 mls/hr 11/09/20 18:37 11/09/20 19:10 Normal Saline IV 11/09/20 23:36 200 mls/hr STAT ONE Administration Sodium Chloride 10 ml 11/09/20 14:39 11/09/20 15:34 Saline Flush FLUSH 10 ml ASDIRECTED PRN Administration Keep Vein Open Sodium Chloride 2.5 ml 11/09/20 14:39 11/09/20 15:34 Saline Flush FLUSH 2.5 ml ASDIRECTED PRN Administration Keep Vein Open Discontinued Medications Generic Name Dose Route Start Last Admin Trade Name Domonique PRN Reason Stop Dose Admin Albuterol/Ipratropium 3 ml 11/09/20 18:36 11/09/20 19:10 Duoneb 3.0-0.5 Mg/3 Ml NEB 11/09/20 18:37 3 ml ONETIME ONE Administration Albuterol/Ipratropium 3 ml 11/09/20 19:13 11/09/20 21:22 Duoneb 3.0-0.5 Mg/3 Ml NEB 11/09/20 19:14 Not Given ONETIME ONE Multivitamins/Minerals 10 ml/ 1,011.2 mls @ 999 mls/hr 11/09/20 14:39 11/09/20 15:35 Thiamine HCl 100 mg/ Folic IV 11/09/20 15:39 999 mls/hr Acid 1 mg/ Sodium Chloride ONETIME ONE Administration Lorazepam 1 mg 11/09/20 15:17 11/09/20 21:22 Ativan IVPUSH 11/09/20 15:18 Not Given ONETIME ONE Lorazepam 1 mg 11/09/20 17:42 11/09/20 18:34 Ativan IVPUSH 11/09/20 17:43 1 mg ONETIME ONE Administration Departure - Departure Time of Disposition: 21:38 Disposition: DC/Tfer to Psych Hosp/Unit 65 Clinical Impression: Alcohol abuse, Suicidal ideation - Discharge Information Referrals: PCP,None [Primary Care Provider] - Forms: ED Department Discharge Sepsis Event Note (ED) - Focused Exam Vital Signs: Vital Signs Temp Pulse Resp BP Pulse Ox 11/09/20 17:31 82 16 105/72 98 11/09/20 14:44 98.6 F 74 18 160/139 H 97 - My Orders Last 24 Hours: My Active Orders 11/09/20 14:39 Sodium Chloride 0.9% [Saline Flush] 10 ml FLUSH ASDIRECTED PRN Sodium Chloride 0.9% [Saline Flush] 2.5 ml FLUSH ASDIRECTED PRN Saline Lock Insert [OM.PC] Stat 11/09/20 18:37 RT Aerosol Therapy [RC] ASDIRECTED Sodium Chloride 0.9% [Normal Saline] 1,000 ml IV STAT 11/09/20 19:14 RT Aerosol Therapy [RC] ASDIRECTED 11/09/20 19:15 EKG Documentation Completion [RC] STAT 11/09/20 21:38 LORazepam [Ativan] 1 mg IVPUSH ONETIME ONE - Assessment/Plan Last 24 Hours: My Active Orders 11/09/20 14:39 Sodium Chloride 0.9% [Saline Flush] 10 ml FLUSH ASDIRECTED PRN Sodium Chloride 0.9% [Saline Flush] 2.5 ml FLUSH ASDIRECTED PRN Saline Lock Insert [OM.PC] Stat 11/09/20 18:37 RT Aerosol Therapy [RC] ASDIRECTED Sodium Chloride 0.9% [Normal Saline] 1,000 ml IV STAT 11/09/20 19:14 RT Aerosol Therapy [RC] ASDIRECTED 11/09/20 19:15 EKG Documentation Completion [RC] STAT 11/09/20 21:38 LORazepam [Ativan] 1 mg IVPUSH ONETIME ONE
[2020-11-09] MEDS ORDERED: LORazepam 2 MG/ML SDV IVPUSH ONE ×3 (15:17→21:38)
[2020-11-09 15:55] LABS: ACETAMINOPHEN <2.0 ug/mL
[2020-11-09 16:01] LABS: POTASSIUM,K 3.9 mmol/L (3.5-5.1)
[2020-11-09] MEDS ORDERED: Albuterol/Ipratropium 3.0-0.5 MG/3 ML Neb Soln NEB ONE ×2 (18:36→19:13)
[2020-11-09] MEDS ORDERED: Sodium Chloride 0.9% 1,000 ML IV ONE (18:37)
--- NOTE | 2020-11-09 18:51 | PCM.EKG ---
#1 Interpretation EKG Date: 11/09/20 Time: 18:45 Rhythm: NSR Rate (Beats/Min): 90 [place]: Normal P-Wave: Present QRS: Normal ST-T: Normal QT: Normal NE/PQ Interval: 125 Comparison: NA - No Prior EKG EKG Interpretation Comments: Right bundle branch block and left anterior fascicular block without evidence of acute ischemic changes
[2020-11-09 21:48] VITALS: BP 134/77; PULSE 80
== END 2020-11-09 22:46 ==
LOC: MW.ED 14:30
DX: R45.851 Suicidal ideations (principal); F10.10 Alcohol abuse, uncomplicated; J44.9 Chronic obstructive pulmonary disease, unspecified; E11.9 Type 2 diabetes mellitus without complications; I10 Essential (primary) hypertension; E78.00 Pure hypercholesterolemia, unspecified; Z91.013 Allergy to seafood; J45.909 Unspecified asthma, uncomplicated; Z79.82 Long term (current) use of aspirin; Z79.84 Long term (current) use of oral hypoglycemic drugs; Z86.73 Personal history of transient ischemic attack (TIA), and cerebral infarction without residual deficits; Z79.899 Other long term (current) drug therapy; Y90.5 Blood alcohol level of 100-119 mg/100 ml
CPT/HCPCS: 36415; 80053; 80143; 80179; 80305; 80307; 81003; 81025; 83735; 84484; 85025; 93005; 96365; 96375; 96376; 99285; J2060; J3411; J7030; 93010; J7620-GY

== ENCOUNTER 2021-03-29 19:52 | Observation (INO) | payer MEDICAID ==
[2021-03-29] MEDS ORDERED: Sodium Chloride 0.9% 2.5 ML Syringe FLUSH PRN (19:54)
[2021-03-29] MEDS ORDERED: Sodium Chloride 0.9% 10 ML Syringe FLUSH PRN (19:54)
--- NOTE | 2021-03-29 20:01 | PCM.EKG ---
#1 Interpretation EKG Interpretation Comments: Heart rate = 76 bpm, normal sinus rhythm, RBBB, normal QRS interval, no STEMI. EKG and rhythm strip interpreted by me at 1957
[2021-03-29] MEDS ORDERED: Sodium Chloride 0.9% 1,000 ML IV ONE ×2 (20:02→21:17)
[2021-03-29] MEDS ORDERED: Morphine 2 MG/ML SYRINGE IVPUSH ONE (20:02)
[2021-03-29] MEDS ORDERED: Ondansetron 4 MG/2 ML SDV IVPUSH ONE (20:06)
--- NOTE | 2021-03-29 20:06 | EDM.PDOC ---
ED HPI GENERAL MEDICAL PROBLEM - General Chief Complaint: Chest Pain Stated Complaint: CHEST PAIN Time Seen by Provider: 03/29/21 19:54 Source of Information: Reports: Patient History Limitations: Reports: No Limitations - History of Present Illness INITIAL COMMENTS - FREE TEXT/NARRATIVE: HISTORY AND PHYSICAL: History of present illness: Patient is a 55-year-old female who presents to the emergency room with complaints of midsternal chest pain that radiates to the left side of her neck and left shoulder. Patient states she has noticed the midsternal chest pain over the past 2 days, but today it started radiating to left neck and arm. She does have some nausea and dizziness associated with this. She has been taking aspirin 325 mg over the past two days, took 2 full tabs [employer]GEMENT [employer]ANT. States this did help her pain somewhat. She admits to having a beer this afternoon, history of chronic alcohol abuse. Patient also has a history of COPD, type 2 diabetes, hypertension, MO, and TIA. She denies any drug abuse. Patient denies any fever, chills, headache, change in vision, syncope or near syncope. Denies any back pain, shortness of breath or cough. Denies any abdominal pain, nausea, vomiting, diarrhea, constipation or dysuria. Has not noted any blood in urine or stool. Patient has been eating and drinking appropriately. Review of systems: As per history of present illness and below otherwise all systems reviewed and negative. Past medical history: As per history of present illness and as reviewed below otherwise noncontributory. Surgical history: As per history of present illness and as reviewed below otherwise noncontributory. Social history: See social history for further information Family history: As per history of present illness and as reviewed below otherwise noncontributory. Physical exam: General: Well developed and well nourished 55 year old black female. Alert and orientated x 3. Nontoxic in appearance and in no acute distress. Vital signs are stable and have been reviewed by me. Nursing notes were reviewed. HEENT: Atraumatic, normocephalic, pupils equal and reactive bilaterally, negative for conjunctival pallor or scleral icterus, mucous membranes moist, TMs normal bilaterally, throat clear, neck supple, nontender, trachea midline. No drooling or trismus noted. No meningeal signs. No hot potato voice noted. Lungs: Clear to auscultation bilaterally. No wheezes, rales, or rhonchi. Chest nontender. Normal work of breathing, no accessory muscles used. Heart: S1S2, regular rate and rhythm without overt murmur, gallops, or rubs. No JVD. No peripheral edema Abdomen: Soft, nondistended, nontender. Normoactive bowel sounds. Negative for masses or costovertebral tenderness. Skin: Intact, warm, dry. No lesions or rashes noted. Hematologic: No petechiae or purpra. Mucosa appropriate color and normal nail bed color and refill. Extremities: Atraumatic, moves all extremities per self without difficulty or deficits, negative for cords or calf pain. Neurovascular unremarkable. Neuro: Awake, alert, oriented. Cranial nerves II through XII unremarkable. Cerebellum unremarkable. Motor and sensory unremarkable throughout. Exam no nfocal. Psychiatric: Mood and affect are appropriate. Normal thought process. Answering questions appropriately. Notes: *This patient was seen and evaluated during the 2019 SARS-CoV-2 [facility] pandemic period. Community viral transmission is ongoing at time of this encounter and the emergency department is operating under pandemic response procedures. Patient is a 55-year-old female who presents to the emergency room by ambulance with complaints of chest pain. She states she has had midsternal chest pain over the past 2 days but this afternoon the pain started radiating to the left neck and shoulder. She states she took 2 aspirin prior to arrival which did seem to help her pain somewhat. EMS reports that she did have a history of low blood pressure well in route, will hold off on nitro at this time due to hypotension. Patient is known to our emergency room and does have a history of chronic alcohol abuse, COPD, type 2 diabetes, hypertension and previous MO. Patient states she has no family history of heart disease. She rates moderate on heart score due to age, risk factor and history. Dr Moraes reviewed EKG. we will do cardiac work-up. Patient has an elevated D-dimer of greater than 7, will do a CT chest to rule out PE. Patient has been hydrated pre-and post scan. I have talked with the patient about today's findings, in addition to providing specific details for plan of care. She is currently pain free. I will repeat a second troponin, with the intention of patient being admitted for chest pain observation. 2200: Dr Moraes has receive report on this patient, he will assume care of this patient and disposition patient appropriately. Diagnostics: CBC, CMP, Troponin, EKG, CXR, COVID, D.Dimer, ETOH, TSH, Mg Therapeutics: IV fluids, Zofran, Morphine Impression: Chest pain Definitive disposition and diagnosis as appropriate pending reevaluation and review of above. chest pain Pain Score (Numeric/FACES): 7 Headache Pain Score (Numeric/FACES): 6 - Related Data Allergies Allergy/AdvReac Type Severity Reaction Status Date / Time No Known Allergies Allergy Verified 03/30/21 02:20 Home Meds: Home Meds atorvaSTATin [Lipitor] 40 mg PO BEDTIME 90 Days #30 tab 04/18/18 [Rx] Glimepiride [Amaryl] 2 mg PO DAILY 07/22/18 [History] metFORMIN HCl [Metformin HCl] 500 mg PO BID 06/23/19 [History] Lisinopril/Hydrochlorothiazide [Lisinopril-HCTZ 10-12.5 MG] 10 - 12.5 mg PO DAILY #30 tab 10/15/20 [Rx] Albuterol [Proventil Neb Soln] 2.5 mg NEB Q4HRRT PRN #50 cup 11/02/20 [Rx] Aspirin [Aspirin EC] 81 mg PO DAILY 11/08/20 [History] Albuterol Sulfate [Proair Hfa] 1 - 2 inh IH Q4H PRN 03/30/21 [History] Fluticasone Propion/Salmeterol [Advair 250-50 Diskus] 1 inh IH BID 03/30/21 [History] Montelukast [Singulair] 10 mg PO BEDTIME 03/30/21 [History] Past Medical History HEENT History: Reports: Other (See Below) Other HEENT History: ear infection Cardiovascular History: Reports: High Cholesterol, Hypertension Respiratory History: Reports: Asthma, Sleep Apnea Gastrointestinal History: Reports: GERD Genitourinary History: Reports: None CLOTH HAULER History: Reports: Other CLOTH HAULER History: 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 Musculoskeletal History: Reports: Other (See Below) Other Musculoskeletal History: ankle fracture - 2013 Neurological History: Reports: TIA Psychiatric History: Reports: None Endocrine/Metabolic History: Reports: Diabetes, Type II Hematologic History: Reports: None Immunologic History: Reports: None Oncologic (Cancer) History: Reports: None Dermatologic History: Reports: None - Infectious Disease History Infectious Disease History: Reports: Chicken Pox, Measles, Mumps - Past Surgical History HEENT Surgical History: Reports: None Cardiovascular Surgical History: Reports: None Respiratory Surgical History: Reports: None GI Surgical History: Reports: None Female Surgical History: Reports: None Endocrine Surgical History: Reports: None Neurological Surgical History: Reports: None Musculoskeletal Surgical History: Reports: Other (See Below) Other Musculoskeletal Surgeries/Procedures:: broke Left ankle Dermatological Surgical History: Reports: None Social & Family History - Family History Family Medical History: No Pertinent Family History Cardiac: Reports: Hypertension, MO Respiratory: Reports: Asthma OBGYN: Reports: Musculoskeletal: Reports: Arthritis Neurological: Reports: CVA Endocrine/Metabolic: Reports: Diabetes, type II - Caffeine Use Caffeine Use: Reports: None ED ROS GENERAL - Review of Systems Review Of Systems: Comprehensive ROS is negative, except as noted in HPI. ED EXAM, GENERAL - Physical Exam Exam: See Below (See dictation) Course - Vital Signs Last Recorded V/S: Last Vital Signs Temp 96.9 F 04/01/21 08:11 Pulse 60 04/01/21 08:11 Resp 18 04/01/21 08:11 BP 169/91 H 04/01/21 08:11 Pulse Ox 99 04/01/21 08:11 - Orders/Labs/Meds Orders: Medication Orders Acetaminophen (Acetaminophen 325 Mg Tab) 650 mg PO Q4H PRN PRN Reason: Pain (Mild 1-3)/fever Last Admin: 04/01/21 07:51 Dose: 650 mg Documented by: LOUIS Cosigned by: EDI Admin: 03/31/21 22:44 Dose: 650 mg Documented by: Admin: 03/31/21 16:29 Dose: 650 mg Documented by: Admin: 03/31/21 08:42 Dose: 650 mg Documented by: Admin: 03/30/21 18:06 Dose: 650 mg Documented by: NOBLE Al Hydroxide/Mg Hydroxide (Aluminum Hydroxide/Magnesium Hydroxide/Simethicone Susp 30 Ml Cup) 30 ml PO Q4H PRN PRN Reason: Indigestion Last Admin: 03/31/21 22:44 Dose: 30 ml Documented by: Admin: 03/31/21 16:29 Dose: 30 ml Documented by: NOBLE Albuterol (Albuterol 0.083% 2.5 Mg/3 Ml Neb Soln) 2.5 mg NEB Q2H PRN PRN Reason: Shortness Of Breath/wheezing Albuterol/Ipratropium (Albuterol/Ipratropium 3.0-0.5 Mg/3 Ml Neb Soln) 3 ml NEB Q4HRRT [facility] [place] Last Admin: 04/01/21 09:40 Dose: 3 ml Documented by: Admin: 04/01/21 05:59 Dose: 3 ml Documented by: Admin: 04/01/21 02:31 Dose: 3 ml Documented by: Admin: 03/31/21 22:35 Dose: 3 ml Documented by: Admin: 03/31/21 17:18 Dose: 3 ml Documented by: Admin: 03/31/21 13:11 Dose: 3 ml Documented by: Admin: 03/31/21 09:38 Dose: 3 ml Documented by: Admin: 03/31/21 05:56 Dose: 3 ml Documented by: Admin: 03/31/21 02:43 Dose: 3 ml Documented by: Admin: 03/30/21 22:44 Dose: 3 ml Documented by: Admin: 03/30/21 17:14 Dose: 3 ml Documented by: Admin: 03/30/21 13:18 Dose: 3 ml Documented by: Admin: 03/30/21 09:32 Dose: 3 ml Documented by: NOBLE Aspirin (Aspirin 81 Mg Tab.Ec) 81 mg PO DAILY [facility] Last Admin: 04/01/21 08:26 Dose: 81 mg Documented by: LOUIS Cosigned by: KAYLAN Admin: 03/31/21 08:37 Dose: 81 mg Documented by: Admin: 03/30/21 08:42 Dose: 81 mg Documented by: Admin: 03/30/21 02:25 Dose: 81 mg Documented by: YOLI Atorvastatin Calcium (Atorvastatin 40 Mg Tab) 40 mg PO BEDTIME [facility] Last Admin: 03/31/21 20:57 Dose: 40 mg Documented by: Admin: 03/30/21 21:21 Dose: 40 mg Documented by: ERENDIRA Dextrose/Water (50% Dextrose In Water 50 Ml Syringe) 50 ml IVPUSH ASDIRECTED PRN PRN Reason: Hypoglycemia Enoxaparin Sodium (Enoxaparin 40 Mg/0.4 Ml Syringe) 40 mg SUBCUT Q24H [facility] Last Admin: 04/01/21 08:27 Dose: 40 mg Documented by: LOUIS Cosigned by: KAYLAN Admin: 03/31/21 08:37 Dose: 40 mg Documented by: Admin: 03/30/21 08:42 Dose: 40 mg Documented by: NOBLE Folic Acid (Folic Acid 1 Mg Tab) 1 mg PO DAILY [facility] Last Admin: 04/01/21 08:26 Dose: 1 mg Documented by: LOUIS Cosigned by: KAYLAN Admin: 03/31/21 08:37 Dose: 1 mg Documented by: Admin: 03/30/21 09:43 Dose: 1 mg Documented by: NOBLE Glucagon (Glucagon,Human Recombinant 1 Mg Vial) 1 mg IM ASDIRECTED PRN PRN Reason: Hypoglycemia Lisinopril/HCTZ (Lisinopril/Hydrochlorothiazide 10-12.5 Mg Tab) 1 tab PO BEDTIME [facility] [place] Last Admin: 03/31/21 20:56 Dose: 1 tab Documented by: Admin: 03/30/21 21:21 Dose: 1 tab Documented by: ERENDIRA Pantoprazole Sodium 40 mg/ (Sodium Chloride) 10 mls @ 300 mls/hr IV DAILY [facility] Last Admin: 04/01/21 09:10 Dose: Not Given Documented by: Admin: 04/01/21 07:38 Dose: 300 mls/hr Documented by: Infusion: 03/31/21 08:38 Dose: 300 mls/hr Documented by: Admin: 03/31/21 08:36 Dose: 300 mls/hr Documented by: Infusion: 03/30/21 08:47 Dose: 300 mls/hr Documented by: Admin: 03/30/21 08:45 Dose: 300 mls/hr Documented by: Infusion: 03/30/21 02:28 Dose: 300 mls/hr Documented by: Admin: 03/30/21 02:26 Dose: 300 mls/hr Documented by: YOLI Insulin Aspart (Insulin Aspart 100 Units/Ml 3 Ml Pen) 0 unit SUBCUT TIDAC [facility] [place]; Protocol Last Admin: 04/01/21 07:48 Dose: 2 units Documented by: LOUIS Ramirezigned by: EDI Admin: 03/31/21 16:38 Dose: 4 units Documented by: Admin: 03/31/21 12:24 Dose: 4 units Documented by: Admin: 03/31/21 08:38 Dose: 2 units Documented by: Admin: 03/30/21 16:51 Dose: 2 units Documented by: Admin: 03/30/21 12:46 Dose: 1 units Documented by: Admin: 03/30/21 07:33 Dose: 5 units Documented by: YOLI Lorazepam (Lorazepam 2 Mg/Ml Sdv) 1 mg IVPUSH Q4H PRN PRN Reason: CIWAA Montelukast Sodium (Montelukast 10 Mg Tab) 10 mg PO BEDTIME [facility] [place] Last Admin: 03/31/21 20:56 Dose: 10 mg Documented by: Admin: 03/30/21 21:21 Dose: 10 mg Documented by: ERENDIRA Nitroglycerin (Nitroglycerin 0.4 Mg Tab.Sl) 0.4 mg SL Q5M PRN PRN Reason: Chest Pain Last Admin: 03/29/21 21:51 Dose: 0.4 mg Documented by: NIC Ondansetron HCl (Ondansetron 4 Mg/2 Ml Sdv) 4 mg IVPUSH Q4H PRN PRN Reason: Nausea/Vomiting Prednisone (Prednisone 20 Mg Tab) 40 mg PO WITHBREAKFAST [facility] [place] Last Admin: 04/01/21 07:53 Dose: 40 mg Documented by: LOUIS Ramirezigned by: [id number] Fluticasone/Salmeterol (Fluticasone/Salmeterol 250-50 Mcg Inhalation Powder 14/Diskus) 1 puff INH BID [facility] Last Admin: 04/01/21 09:40 Dose: 1 puff Documented by: Admin: 03/31/21 21:16 Dose: 1 puff Documented by: Admin: 03/31/21 08:46 Dose: 1 puff Documented by: Admin: 03/30/21 21:21 Dose: 1 puff Documented by: Admin: 03/30/21 09:43 Dose: 1 puff Documented by: NOBLE Sodium Chloride (Sodium Chloride 0.9% 10 Ml Syringe) 10 ml FLUSH ASDIRECTED PRN PRN Reason: Keep Vein Open Last Admin: 03/29/21 19:59 Dose: 10 ml Documented by: CARLOS Sodium Chloride (Sodium Chloride 0.9% 2.5 Ml Syringe) 2.5 ml FLUSH ASDIRECTED PRN PRN Reason: Keep Vein Open Last Admin: 03/29/21 19:59 Dose: 2.5 ml Documented by: CARLOS Thiamine HCl (Thiamine 100 Mg Tab) 100 mg PO DAILY [facility] [place] Last Admin: 04/01/21 08:26 Dose: 100 mg Documented by: LOUIS Cosigned by: KAYLAN Admin: 03/31/21 08:37 Dose: 100 mg Documented by: Admin: 03/30/21 10:05 Dose: 100 mg Documented by: NOBLE Labs: Laboratory Tests 03/29/21 03/29/21 03/29/21 Range/Units 19:54 19:54 19:54 WBC 8.40 (4.0-11.0) K/uL RBC 3.83 L (4.30-5.90) M/uL Hgb 11.0 L (12.0-16.0) g/dL Hct 33.7 L (36.0-46.0) % MCV 88.0 (80.0-98.0) fL MCH 28.7 (27.0-32.0) pg MCHC 32.6 (31.0-37.0) g/dL RDW Std Deviation 50.6 (28.0-62.0) fl RDW Coeff of Jeannette 16 H (11.0-15.0) % Plt Count 257 (150-400) K/uL MPV 10.80 (7.40-12.00) fL Neut % (Auto) 62.5 (48.0-80.0) % Lymph % (Auto) 26.2 (16.0-40.0) % [place] % (Auto) 8.6 (0.0-15.0) % Eos % (Auto) 2.6 (0.0-7.0) % Baso % (Auto) 0.1 (0.0-1.5) % Neut # (Auto) 5.3 (1.4-5.7) K/uL Lymph # (Auto) 2.2 (0.6-2.4) K/uL [place] # (Auto) 0.7 (0.0-0.8) K/uL Eos # (Auto) 0.2 (0.0-0.7) K/uL Baso # (Auto) 0.0 (0.0-0.1) K/uL Nucleated RBC % 0.0 /100WBC Nucleated RBCs # 0 K/uL D-Dimer, Quantitative (0.0-0.50) mg/L FEU Sodium 141 (136-145) mmol/L Potassium 4.3 (3.5-5.1) mmol/L Chloride 105 (98-107) mmol/L Carbon Dioxide 25.4 (21.0-32.0) mmol/L BUN 26 H (7.0-18.0) mg/dL Creatinine 1.3 H (0.6-1.0) mg/dL Est Cr Clr Drug Dosing TNP Estimated GFR (MDRD) 51.2 ml/min Glucose 80 (74-106) mg/dL Hemoglobin A1c (4.5 - 6.2) % Calcium 9.4 (8.5-10.1) mg/dL Magnesium (1.8-2.4) mg/dL Total Bilirubin 0.3 (0.2-1.0) mg/dL AST 14 L (15-37) IU/L ALT 13 L (14-63) IU/L Alkaline Phosphatase 72 (46-116) U/L Troponin I < 0.050 (0.000-0.056) ng/mL Total Protein 7.1 (6.4-8.2) g/dL Albumin 3.7 (3.4-5.0) g/dL Globulin 3.4 (2.6-4.0) g/dL Albumin/Globulin Ratio 1.1 (0.9-1.6) Triglycerides (0-200) mg/dL Cholesterol (50-200) mg/dL LDL Cholesterol, Calc (60-180) mg/dL VLDL Cholesterol (5-55) mg/dL HDL Cholesterol (40-60) mg/dL Cholesterol/HDL Ratio (3.3-6.0) TSH 3rd Generation 0.92 (0.36-3.74) uIU/mL Ethyl Alcohol < 3.0 mg/dL SARS-CoV-2 RNA ([place]) (NEGATIVE) 03/29/21 03/29/21 03/29/21 Range/Units 19:54 19:54 19:54 WBC (4.0-11.0) K/uL RBC (4.30-5.90) M/uL Hgb (12.0-16.0) g/dL Hct (36.0-46.0) % MCV (80.0-98.0) fL MCH (27.0-32.0) pg MCHC (31.0-37.0) g/dL RDW Std Deviation (28.0-62.0) fl RDW Coeff of Jeannette (11.0-15.0) % Plt Count (150-400) K/uL MPV (7.40-12.00) fL Neut % (Auto) (48.0-80.0) % Lymph % (Auto) (16.0-40.0) % [place] % (Auto) (0.0-15.0) % Eos % (Auto) (0.0-7.0) % Baso % (Auto) (0.0-1.5) % Neut # (Auto) (1.4-5.7) K/uL Lymph # (Auto) (0.6-2.4) K/uL [place] # (Auto) (0.0-0.8) K/uL Eos # (Auto) (0.0-0.7) K/uL Baso # (Auto) (0.0-0.1) K/uL Nucleated RBC % /100WBC Nucleated RBCs # K/uL D-Dimer, Quantitative 7.48 H (0.0-0.50) mg/L FEU Sodium (136-145) mmol/L Potassium (3.5-5.1) mmol/L Chloride (98-107) mmol/L Carbon Dioxide (21.0-32.0) mmol/L BUN (7.0-18.0) mg/dL Creatinine (0.6-1.0) mg/dL Est Cr Clr Drug Dosing Estimated GFR (MDRD) ml/min Glucose (74-106) mg/dL Hemoglobin A1c (4.5 - 6.2) % Calcium (8.5-10.1) mg/dL Magnesium 1.7 L (1.8-2.4) mg/dL Total Bilirubin (0.2-1.0) mg/dL AST (15-37) IU/L ALT (14-63) IU/L Alkaline Phosphatase (46-116) U/L Troponin I (0.000-0.056) ng/mL Total Protein (6.4-8.2) g/dL Albumin (3.4-5.0) g/dL Globulin (2.6-4.0) g/dL Albumin/Globulin Ratio (0.9-1.6) Triglycerides 76 (0-200) mg/dL Cholesterol 167 (50-200) mg/dL LDL Cholesterol, Calc 96 (60-180) mg/dL VLDL Cholesterol 15 (5-55) mg/dL HDL Cholesterol 56 (40-60) mg/dL Cholesterol/HDL Ratio 3.0 L (3.3-6.0) TSH 3rd Generation (0.36-3.74) uIU/mL Ethyl Alcohol mg/dL SARS-CoV-2 RNA ([place]) (NEGATIVE) 03/29/21 03/29/21 03/29/21 Range/Units 19:54 20:09 22:59 WBC (4.0-11.0) K/uL RBC (4.30-5.90) M/uL Hgb (12.0-16.0) g/dL Hct (36.0-46.0) % MCV (80.0-98.0) fL MCH (27.0-32.0) pg MCHC (31.0-37.0) g/dL RDW Std Deviation (28.0-62.0) fl RDW Coeff of Jeannette (11.0-15.0) % Plt Count (150-400) K/uL MPV (7.40-12.00) fL Neut % (Auto) (48.0-80.0) % Lymph % (Auto) (16.0-40.0) % [place] % (Auto) (0.0-15.0) % Eos % (Auto) (0.0-7.0) % Baso % (Auto) (0.0-1.5) % Neut # (Auto) (1.4-5.7) K/uL Lymph # (Auto) (0.6-2.4) K/uL [place] # (Auto) (0.0-0.8) K/uL Eos # (Auto) (0.0-0.7) K/uL Baso # (Auto) (0.0-0.1) K/uL Nucleated RBC % /100WBC Nucleated RBCs # K/uL D-Dimer, Quantitative (0.0-0.50) mg/L FEU Sodium (136-145) mmol/L Potassium (3.5-5.1) mmol/L Chloride (98-107) mmol/L Carbon Dioxide (21.0-32.0) mmol/L BUN (7.0-18.0) mg/dL Creatinine (0.6-1.0) mg/dL Est Cr Clr Drug Dosing Estimated GFR (MDRD) ml/min Glucose (74-106) mg/dL Hemoglobin A1c 6.4 H (4.5 - 6.2) % Calcium (8.5-10.1) mg/dL Magnesium (1.8-2.4) mg/dL Total Bilirubin (0.2-1.0) mg/dL AST (15-37) IU/L ALT (14-63) IU/L Alkaline Phosphatase (46-116) U/L Troponin I < 0.050 (0.000-0.056) ng/mL Total Protein (6.4-8.2) g/dL Albumin (3.4-5.0) g/dL Globulin (2.6-4.0) g/dL Albumin/Globulin Ratio (0.9-1.6) Triglycerides (0-200) mg/dL Cholesterol (50-200) mg/dL LDL Cholesterol, Calc (60-180) mg/dL VLDL Cholesterol (5-55) mg/dL HDL Cholesterol (40-60) mg/dL Cholesterol/HDL Ratio (3.3-6.0) TSH 3rd Generation (0.36-3.74) uIU/mL Ethyl Alcohol mg/dL SARS-CoV-2 RNA ([place]) NEGATIVE (NEGATIVE) Meds: Medications Generic Name Dose Route Start Last Admin Trade Name Freq PRN Reason Stop Dose Admin Acetaminophen 650 mg 03/30/21 00:41 04/01/21 07:51 Acetaminophen 325 Mg Tab PO 650 mg Q4H PRN Administration Pain (Mild 1-3)/fever Al Hydroxide/Mg Hydroxide 30 ml 03/30/21 12:04 03/31/21 22:44 Aluminum Hydroxide/Magnesium Hydroxide/Simethicone Susp 30 Ml Cup PO 30 ml Q4H PRN Administration Indigestion Albuterol 2.5 mg 03/30/21 09:19 Albuterol 0.083% 2.5 Mg/3 Ml Neb Soln NEB Q2H PRN Shortness Of Breath/wheezing Albuterol/Ipratropium 3 ml 03/30/21 10:00 04/01/21 09:40 Albuterol/Ipratropium 3.0-0.5 Mg/3 Ml Neb Soln NEB 3 ml Q4HRRT MARCELO Administration Aspirin 81 mg 03/30/21 01:00 04/01/21 08:26 Aspirin 81 Mg Tab.Ec PO 81 mg DAILY MARCELO Administration Atorvastatin Calcium 40 mg 03/30/21 21:00 03/31/21 20:57 Atorvastatin 40 Mg Tab PO 40 mg BEDTIME MARCELO Administration Dextrose/Water 50 ml 03/30/21 00:47 50% Dextrose In Water 50 Ml Syringe IVPUSH ASDIRECTED PRN Hypoglycemia Enoxaparin Sodium 40 mg 03/30/21 09:00 04/01/21 08:27 Enoxaparin 40 Mg/0.4 Ml Syringe SUBCUT 40 mg Q24H MARCELO Administration Folic Acid 1 mg 03/30/21 09:30 04/01/21 08:26 Folic Acid 1 Mg Tab PO 1 mg DAILY MARCELO Administration Glucagon 1 mg 03/30/21 00:47 Glucagon,Human Recombinant 1 Mg Vial IM ASDIRECTED PRN Hypoglycemia Lisinopril/HCTZ 1 tab 03/30/21 21:00 03/31/21 20:56 Lisinopril/Hydrochlorothiazide 10-12.5 Mg Tab PO 1 tab BEDTIME MARCELO Administration Pantoprazole Sodium 40 mg/ 10 mls @ 300 mls/hr 03/30/21 00:45 04/01/21 09:10 Sodium Chloride IV Not Given DAILY MARCELO Insulin Aspart 0 unit 03/30/21 07:30 04/01/21 07:48 Insulin Aspart 100 Units/Ml 3 Ml Pen SUBCUT 2 units TIDAC MARCELO Administration Protocol Lorazepam 1 mg 03/30/21 09:20 Lorazepam 2 Mg/Ml Sdv IVPUSH Q4H PRN CIWAA Montelukast Sodium 10 mg 03/30/21 21:00 03/31/21 20:56 Montelukast 10 Mg Tab PO 10 mg BEDTIME MARCELO Administration Nitroglycerin 0.4 mg 03/29/21 21:41 03/29/21 21:51 Nitroglycerin 0.4 Mg Tab.Sl SL 0.4 mg Q5M PRN Administration Chest Pain Ondansetron HCl 4 mg 03/30/21 00:41 Ondansetron 4 Mg/2 Ml Sdv IVPUSH Q4H PRN Nausea/Vomiting Prednisone 40 mg 04/01/21 08:00 04/01/21 07:53 Prednisone 20 Mg Tab PO 40 mg WITHBREAKFAST MARCELO Administration Fluticasone/Salmeterol 1 puff 03/30/21 09:30 04/01/21 09:40 Fluticasone/Salmeterol 250-50 Mcg Inhalation Powder 14/Diskus INH 1 puff BID MARCELO Administration Sodium Chloride 10 ml 03/29/21 19:54 03/29/21 19:59 Sodium Chloride 0.9% 10 Ml Syringe FLUSH 10 ml ASDIRECTED PRN Administration Keep Vein Open Sodium Chloride 2.5 ml 03/29/21 19:54 03/29/21 19:59 Sodium Chloride 0.9% 2.5 Ml Syringe FLUSH 2.5 ml ASDIRECTED PRN Administration Keep Vein Open Thiamine HCl 100 mg 03/30/21 09:30 04/01/21 08:26 Thiamine 100 Mg Tab PO 100 mg DAILY MARCELO Administration Discontinued Medications Generic Name Dose Route Start Last Admin Trade Name Freq PRN Reason Stop Dose Admin Albuterol/Ipratropium 3 ml 03/29/21 23:15 03/29/21 23:51 Albuterol/Ipratropium 3.0-0.5 Mg/3 Ml Neb Soln NEB 03/29/21 23:16 3 ml ONETIME ONE Administration Albuterol/Ipratropium 3 ml 03/30/21 00:41 Albuterol/Ipratropium 3.0-0.5 Mg/3 Ml Neb Soln NEB Q4HRRT PRN Shortness Of Breath/wheezing Al Hydroxide/Mg Hydroxide 15 0 ml 03/30/21 09:18 03/30/21 10:04 ml/ Lidocaine HCl 5 ml PO 03/30/21 09:19 20 each ONETIME ONE Administration Enoxaparin Sodium 40 mg 03/30/21 00:45 03/30/21 01:51 Enoxaparin 40 Mg/0.4 Ml Syringe SUBCUT Not Given Q24H MARCELO Lisinopril/HCTZ 1 tab 03/30/21 13:45 Lisinopril/Hydrochlorothiazide 10-12.5 Mg Tab PO DAILY MARCELO Sodium Chloride 1,000 mls @ 999 mls/hr 03/29/21 20:02 03/29/21 20:27 Normal Saline IV 03/29/21 21:02 999 mls/hr STAT ONE Administration Sodium Chloride 1,000 mls @ 999 mls/hr 03/29/21 21:17 03/29/21 22:39 Normal Saline IV 03/29/21 22:17 999 mls/hr .Bolus ONE Administration Lactated Ringer's 1,000 mls @ 125 mls/hr 03/30/21 00:45 03/30/21 02:26 Ringers, Lactated IV 125 mls/hr ASDIRECTED MARCELO Administration Iopamidol 100 ml 03/29/21 21:37 03/29/21 22:13 Iopamidol 755 Mg/Ml 500 Ml Multipack Bottle IVPUSH 03/29/21 21:38 75 ml ONETIME STA Administration Lorazepam 2 mg 03/29/21 21:40 03/29/21 22:35 Lorazepam 2 Mg/Ml Sdv IVPUSH 03/29/21 21:41 2 mg ONETIME ONE Administration Magnesium Oxide 800 mg 03/30/21 00:40 03/30/21 02:25 Magnesium Oxide 400 Mg Tab PO 03/30/21 00:41 800 mg ONETIME ONE Administration Methylprednisolone Sodium Succinate 125 mg 03/29/21 23:16 03/29/21 23:51 Methylprednisolone Sodium Succinate 125 Mg/2 Ml Sdv IVPUSH 03/29/21 23:17 125 mg ONETIME ONE Administration Methylprednisolone Sodium Succinate 40 mg 03/30/21 06:00 03/31/21 06:15 Methylprednisolone Sodium Succinate 40 Mg/1 Ml Sdv IVPUSH 40 mg Q8H MARCELO Administration Morphine Sulfate 2 mg 03/29/21 20:02 03/29/21 20:27 Morphine 2 Mg/Ml Syringe IVPUSH 03/29/21 20:03 2 mg ONETIME ONE Administration Morphine Sulfate 1 mg 03/30/21 00:41 03/30/21 13:28 Morphine 2 Mg/Ml Syringe IVPUSH 03/31/21 00:42 1 mg Q4H PRN Administration Pain (severe 7-10) Nitroglycerin Confirm 03/29/21 21:49 03/29/21 21:51 Nitroglycerin 0.4 Mg Tab.Sl Administered 03/29/21 21:50 Not Given Dose 0.4 mg .ROUTE .STK-MED ONE Ondansetron HCl 4 mg 03/29/21 20:06 03/29/21 20:27 Ondansetron 4 Mg/2 Ml Sdv IVPUSH 03/29/21 20:07 4 mg ONETIME ONE Administration Departure - Departure Time of Disposition: 09:57 Disposition: Admitted As Inpatient 64 Clinical Impression: Chest pain, rule out acute myocardial infarction
[2021-03-29 20:26] LABS: BLOOD UREA NITROGEN,BUN 26 mg/dL (7.0-18.0); CARBON DIOXIDE,CO2 25.4 mmol/L (21.0-32.0); CHLORIDE,CL 105 mmol/L (98-107); GLUCOSE RANDOM 80 mg/dL (74-106); POTASSIUM,K 4.3 mmol/L (3.5-5.1); SODIUM,NA 141 mmol/L (136-145)
--- NOTE | 2021-03-29 20:33 | CR ---
INDICATION: Chest pain TECHNIQUE: Chest 1 view COMPARISON: 11/06/2020 FINDINGS: Cardiovascular and mediastinum: Heart size and vasculature are normal in caliber and appearance. Lungs and pleural spaces: Lungs are clear. No sign of infiltrate or mass. No sign of pleural effusion. No pneumothorax. Bones and soft tissues: No significant findings. IMPRESSION: No acute findings and no significant changes from the prior exam. Dictated by Kaleb Deutsch MD @ 03/29/2021 8:32:[address] Kaleb Deutsch @ Mar 29 2021 8:32PM
[2021-03-29] MEDS ORDERED: Iopamidol 755 MG/ML 500 ML Multipack Bottle IVPUSH STA (21:37)
[2021-03-29] MEDS ORDERED: LORazepam 2 MG/ML SDV IVPUSH ONE (21:40)
[2021-03-29] MEDS ORDERED: Nitroglycerin 0.4 MG Tab.SL SL PRN (21:41)
[2021-03-29] MEDS ORDERED: Nitroglycerin 0.4 MG Tab.SL ONE (21:49)
--- NOTE | 2021-03-29 22:51 | CT ---
INDICATION: Chest pain TECHNIQUE: CT chest PE was acquired with 75 cc Isovue 370 intravenous contrast. COMPARISON: Chest CT 04/06/2020 FINDINGS: Heart and vasculature: Contrast opacification of the pulmonary arterial tree is adequate. No sign of pulmonary embolism. Ascending thoracic aorta is mildly enlarged measuring 4.1 centimeters; this tapers to 3.1 centimeters at the level of the proximal descending aorta. No pericardial effusion. Coronary atherosclerosis. Lungs and pleural: No pleural effusion or pneumothorax. Minimal areas of discoid atelectasis. Lymph nodes/mediastinum: No mediastinal, hilar, or axillary adenopathy. Chest wall: No masses. Upper abdomen: Normal. Bones: Unremarkable for age. IMPRESSION: 1. No evidence pulmonary embolus. 2. Mild dilation of the ascending thoracic aorta measuring 4.1 centimeters, stable compared to the study of 1 year prior. Please note that all CT scans at this facility use dose modulation, iterative reconstruction, and/or weight-based dosing when appropriate to reduce radiation dose to as low as reasonably achievable. Dictated by Alex Wilkins MD @ 03/29/2021 10:49:[address] Alex Wilkins @ Mar 29 2021 10:49PM
[2021-03-29] MEDS ORDERED: Albuterol/Ipratropium 3.0-0.5 MG/3 ML Neb Soln NEB ONE (23:15)
[2021-03-29] MEDS ORDERED: methylPREDNISolone Sodium Succinate 125 MG/2 ML SDV IVPUSH ONE (23:16)
[2021-03-30] MEDS ORDERED: Magnesium Oxide 400 MG Tab PO ONE (00:40)
[2021-03-30] MEDS ORDERED: Ondansetron 4 MG/2 ML SDV IVPUSH PRN (00:41)
[2021-03-30] MEDS ORDERED: Albuterol/Ipratropium 3.0-0.5 MG/3 ML Neb Soln NEB PRN (00:41)
[2021-03-30] MEDS ORDERED: Lactated Ringers 1,000 ML IV SCH (00:45)
[2021-03-30] MEDS ORDERED: Enoxaparin 40 MG/0.4 ML Syringe SUBCUT SCH (00:45)
[2021-03-30] MEDS ORDERED: 50% Dextrose in Water 50 ML Syringe IVPUSH PRN (00:47)
[2021-03-30] MEDS ORDERED: Glucagon,Human Recombinant 1 MG Vial IM PRN (00:47)
[2021-03-30 01:11] LABS: HEMOGLOBIN A1C 6.4 %
[2021-03-30] MEDS: Aspirin 81 MG Tab.EC PO SCH ×2 (02:25→08:42)
[2021-03-30] MEDS: Pantoprazole 40 MG in Sodium Chloride 0.9% 10 ML IV SCH ×2 (02:26→08:45)
[2021-03-30] MEDS: Morphine 2 MG/ML SYRINGE IVPUSH PRN ×3 (02:43→13:28)
[2021-03-30] MEDS: methylPREDNISolone Sodium Succinate 40 MG/1 ML SDV IVPUSH SCH ×3 (06:20→22:45)
[2021-03-30] MEDS: Insulin Aspart 100 Units/ML 3 ML Pen SUBCUT SCH ×3 (07:33→16:51)
--- NOTE | 2021-03-30 08:16 | PCM.HP.2 ---
H&P History of Present Illness - General Date of Service: 03/30/21 Admit Problem/Dx: Admission Diagnosis/Problem Admission Diagnosis/Problem Chest pain Source of Information: Patient History Limitations: Reports: No Limitations - History of Present Illness Initial Comments - Free Text/Narative: This 55-year-old female with past medical history of alcohol abuse, type 2 diabe brendan, asthma, CVA, [place], HTN and AYLA presents to the ER with complaints of midsternal chest pain that radiated to the left side of her neck and left shoulder. She reports that she had noticed this pain over the past couple days but yesterday it started radiating concerned her. She reports associated nausea and dizziness. She did take aspirin each day with the pain which did help. She also did take aspirin prior to arrival to the ER. She reports this pain is somewhat like heartburn and hurting up into the back of her throat. She reports his pain pain is sharp shooting. And is intermittent. She reports she has been compliant with her medications. Reports that she has not been drinking alcohol nearly as much as she used to, but continues to have tremors that she does not have any drinks. She also reports running out of inhalers and needing more of those reporting that she is feeling more short of breath and having significant wheezing. She denies any fevers chills headache or neck pain. Denies any syncopal episodes. Denies any back pain. She denies any abdominal pain, nausea, vomiting, diarrhea constipation or black or bloody bowel movements. She reports she has been eating and drinking well. She did report drinking some alcohol earlier yesterday. Reports she continues to smoke half a pack a day denies any recreational drug use. In the ER no leukocytosis noted. Hemoglobin 11.0 hematocrit 33.7. D-dimer elevated 7.48. Sodium 141 potassium 4.3. BUN 26 creatinine 1.3, which is near baseline. A1c 6.4. Magnesium 1.7 bilirubin 0.3 AST ALT 14 and 13 respectively. Troponin negative. Triglyceride 76 total cholesterol 167, HDL 56 LDL 96. TSH 0.92. UA negative. Alcohol level negative Covid swab negative. CTA of the chest obtained due to elevated D-dimer. No evidence of pulmonary embolism. Mild dilation of the ascending thoracic aorta measuring 4.1 cm stable compared to study 1 year prior. Chest x-ray negative. EKG revealed normal sinus rhythm with right bundle branch block heart rate [address] or T wave changes, no signs of ischemia. Patient will be admitted for chest pain rule out ACS. PCP Dr. Hand Upon assessment of medications and her possession. It appears patient has multiple refills of multiple medications and does not appear that she is completely compliant with taking medications as prescribed. Empty Advair Diskus noted. chest pain Pain Score (Numeric/FACES): 6 - Related Data Allergies/Adverse Reactions: Allergies Allergy/AdvReac Type Severity Reaction Status Date / Time No Known Allergies Allergy Verified 03/30/21 02:20 Home Medications: Home Meds atorvaSTATin [Lipitor] 40 mg PO BEDTIME 90 Days #30 tab 04/18/18 [Rx] Glimepiride [Amaryl] 2 mg PO DAILY 07/22/18 [History] metFORMIN HCl [Metformin HCl] 500 mg PO BID 06/23/19 [History] Lisinopril/Hydrochlorothiazide [Lisinopril-HCTZ 10-12.5 MG] 10 - 12.5 mg PO PHILL Y #30 tab 10/15/20 [Rx] Albuterol [Proventil Neb Soln] 2.5 mg NEB Q4HRRT PRN #50 cup 11/02/20 [Rx] Aspirin [Aspirin EC] 81 mg PO DAILY 11/08/20 [History] Albuterol Sulfate [Proair Hfa] 1 - 2 inh IH Q4H PRN 03/30/21 [History] Fluticasone Propion/Salmeterol [Advair 250-50 Diskus] 1 inh IH BID 03/30/21 [History] Montelukast [Singulair] 10 mg PO BEDTIME 03/30/21 [History] Past Medical History HEENT History: Reports: Other (See Below) Other HEENT History: ear infection Cardiovascular History: Reports: CAD, High Cholesterol, Hypertension, AK. 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 OB/BYN History: 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 Musculoskeletal History: Reports: Other (See Below) Other Musculoskeletal History: ankle fracture - 2013 Neurological History: Reports: TIA Psychiatric History: Reports: None Endocrine/Metabolic History: Reports: Diabetes, Type II Hematologic History: Reports: None Immunologic History: Reports: None Oncologic (Cancer) History: Reports: None Dermatologic History: Reports: None - Infectious Disease History Infectious Disease History: Reports: Chicken Pox, Measles, Mumps - Past Surgical History HEENT Surgical History: Reports: None Cardiovascular Surgical History: Reports: None Respiratory Surgical History: Reports: None GI Surgical History: Reports: None Female Surgical History: Reports: None Endocrine Surgical History: Reports: None Neurological Surgical History: Reports: None Musculoskeletal Surgical History: Reports: Other (See Below) Other Musculoskeletal Surgeries/Procedures:: broke Left ankle Dermatological Surgical History: Reports: None Social & Family History - Family History Family Medical History: No Pertinent Family History Cardiac: Reports: Hypertension, AK Respiratory: Reports: Asthma OBGYN: Reports: Musculoskeletal: Reports: Arthritis Neurological: Reports: CVA Endocrine/Metabolic: Reports: Diabetes, type II - Tobacco Use Tobacco Use Status *Q: Current Every Day Tobacco User Years of Tobacco use: 10 Packs/Tins Daily: 0.2 - Caffeine Use Caffeine Use: Reports: None - Alcohol Use Date of Last Drink: 03/30/21 - Recreational Drug Use Recreational Drug Use: No H&P Review of Systems - Review of Systems: Review Of Systems: See Below General: Reports: No Symptoms. Denies: Fever, Chills, Malaise, Weakness HEENT: Reports: No Symptoms. Denies: Headaches, Sinus Congestion, Sore Throat, Vertigo Pulmonary: Reports: Shortness of Breath, Wheezing, Pleuritic Chest Pain, Cough. Denies: Sputum, Hemoptysis Cardiovascular: Reports: Chest Pain (Hurts worse with taking deep breaths), Dyspnea on Exertion. Denies: Palpitations, Edema Gastrointestinal: Reports: No Symptoms. Denies: Abdominal Pain, Black Stool, Bloody Stool, Nausea, Vomiting Genitourinary: Reports: No Symptoms. Denies: Dysuria, Frequency, Burning Musculoskeletal: Reports: No Symptoms Skin: Reports: No Symptoms Psychiatric: Reports: No Symptoms Neurological: Reports: Tremors Hematologic/Lymphatic: Reports: No Symptoms Immunologic: Reports: No Symptoms Exam - Exam Exam: See Below - Vital Signs Vital Signs: Last Vital Signs Temp 98.8 F 03/30/21 07:52 Pulse 85 03/30/21 07:52 Resp 20 03/30/21 07:52 BP 146/67 H 03/30/21 07:52 Pulse Ox 97 03/30/21 07:52 Weight: 111.448 kg - Exam Quality Assessment: DVT Prophylaxis. No: Supplemental Oxygen General: Alert, Oriented, Cooperative HEENT: Conjunctiva Clear, Mucosa Moist & [place], Posterior Pharynx Clear Lungs: Rhonchi (Throughout lung rick), Wheezing (Audible wheezing). No: Normal Respiratory Effort (Dyspnea) Cardiovascular: Regular Rate, Regular Rhythm, Normal S1, Normal S2. No: Systolic Murmur GI/Abdominal Exam: Normal Bowel Sounds, Soft, Non-Tender Extremities: Normal Inspection, Normal Range of Motion, Non-Tender, No Pedal Edema Skin: Warm, Intact Neuro Extensive - Mental Status: Alert, Oriented x3, Normal Mood/Affect Psychiatric: Withdrawal Symptoms (Mild tremors noted) - Patient Data Lab Results Last 24 hrs: Laboratory Results - last 24 hr 03/29/21 03/29/21 03/29/21 Range/Units 19:54 19:54 19:54 WBC 8.40 (4.0-11.0) K/uL RBC 3.83 L (4.30-5.90) M/uL Hgb 11.0 L (12.0-16.0) g/dL Hct 33.7 L (36.0-46.0) % MCV 88.0 (80.0-98.0) fL MCH 28.7 (27.0-32.0) pg MCHC 32.6 (31.0-37.0) g/dL RDW Std Deviation 50.6 (28.0-62.0) fl RDW Coeff of Jeannette 16 H (11.0-15.0) % Plt Count 257 (150-400) K/uL MPV 10.80 (7.40-12.00) fL Neut % (Auto) 62.5 (48.0-80.0) % Lymph % (Auto) 26.2 (16.0-40.0) % [place] % (Auto) 8.6 (0.0-15.0) % Eos % (Auto) 2.6 (0.0-7.0) % Baso % (Auto) 0.1 (0.0-1.5) % Neut # (Auto) 5.3 (1.4-5.7) K/uL Lymph # (Auto) 2.2 (0.6-2.4) K/uL [place] # (Auto) 0.7 (0.0-0.8) K/uL Eos # (Auto) 0.2 (0.0-0.7) K/uL Baso # (Auto) 0.0 (0.0-0.1) K/uL Nucleated RBC % 0.0 /100WBC Nucleated RBCs # 0 K/uL D-Dimer, Quantitative (0.0-0.50) mg/L FEU Sodium 141 (136-145) mmol/L Potassium 4.3 (3.5-5.1) mmol/L Chloride 105 (98-107) mmol/L Carbon Dioxide 25.4 (21.0-32.0) mmol/L BUN 26 H (7.0-18.0) mg/dL Creatinine 1.3 H (0.6-1.0) mg/dL Est Cr Clr Drug Dosing TNP Estimated GFR (MDRD) 51.2 ml/min Glucose 80 (74-106) mg/dL POC Glucose (70-99) mg/dL Hemoglobin A1c (4.5 - 6.2) % Calcium 9.4 (8.5-10.1) mg/dL Magnesium (1.8-2.4) mg/dL Total Bilirubin 0.3 (0.2-1.0) mg/dL AST 14 L (15-37) IU/L ALT 13 L (14-63) IU/L Alkaline Phosphatase 72 (46-116) U/L Troponin I < 0.050 (0.000-0.056) ng/mL Total Protein 7.1 (6.4-8.2) g/dL Albumin 3.7 (3.4-5.0) g/dL Globulin 3.4 (2.6-4.0) g/dL Albumin/Globulin Ratio 1.1 (0.9-1.6) Triglycerides (0-200) mg/dL Cholesterol (50-200) mg/dL LDL Cholesterol, Calc (60-180) mg/dL VLDL Cholesterol (5-55) mg/dL HDL Cholesterol (40-60) mg/dL Cholesterol/HDL Ratio (3.3-6.0) TSH 3rd Generation 0.92 (0.36-3.74) uIU/mL Urine Color Urine Appearance Urine pH (5.0-8.0) Ur Specific [place] (1.001-1.035) Urine Protein (NEGATIVE) mg/dL Urine Glucose (UA) (NEGATIVE) mg/dL Urine Ketones (NEGATIVE) mg/dL Urine Occult Blood (NEGATIVE) Urine Nitrite (NEGATIVE) Urine Bilirubin (NEGATIVE) Urine Urobilinogen (<2.0) EU/dL Ur Leukocyte Esterase (NEGATIVE) Ethyl Alcohol < 3.0 mg/dL SARS-CoV-2 RNA ([place]) (NEGATIVE) 03/29/21 03/29/21 03/29/21 Range/Units 19:54 19:54 19:54 WBC (4.0-11.0) K/uL RBC (4.30-5.90) M/uL Hgb (12.0-16.0) g/dL Hct (36.0-46.0) % MCV (80.0-98.0) fL MCH (27.0-32.0) pg MCHC (31.0-37.0) g/dL RDW Std Deviation (28.0-62.0) fl RDW Coeff of Jeannette (11.0-15.0) % Plt Count (150-400) K/uL MPV (7.40-12.00) fL Neut % (Auto) (48.0-80.0) % Lymph % (Auto) (16.0-40.0) % [place] % (Auto) (0.0-15.0) % Eos % (Auto) (0.0-7.0) % Baso % (Auto) (0.0-1.5) % Neut # (Auto) (1.4-5.7) K/uL Lymph # (Auto) (0.6-2.4) K/uL [place] # (Auto) (0.0-0.8) K/uL Eos # (Auto) (0.0-0.7) K/uL Baso # (Auto) (0.0-0.1) K/uL Nucleated RBC % /100WBC Nucleated RBCs # K/uL D-Dimer, Quantitative 7.48 H (0.0-0.50) mg/L FEU Sodium (136-145) mmol/L Potassium (3.5-5.1) mmol/L Chloride (98-107) mmol/L Carbon Dioxide (21.0-32.0) mmol/L BUN (7.0-18.0) mg/dL Creatinine (0.6-1.0) mg/dL Est Cr Clr Drug Dosing Estimated GFR (MDRD) ml/min Glucose (74-106) mg/dL POC Glucose (70-99) mg/dL Hemoglobin A1c (4.5 - 6.2) % Calcium (8.5-10.1) mg/dL Magnesium 1.7 L (1.8-2.4) mg/dL Total Bilirubin (0.2-1.0) mg/dL AST (15-37) IU/L ALT (14-63) IU/L Alkaline Phosphatase (46-116) U/L Troponin I (0.000-0.056) ng/mL Total Protein (6.4-8.2) g/dL Albumin (3.4-5.0) g/dL Globulin (2.6-4.0) g/dL Albumin/Globulin Ratio (0.9-1.6) Triglycerides 76 (0-200) mg/dL Cholesterol 167 (50-200) mg/dL LDL Cholesterol, Calc 96 (60-180) mg/dL VLDL Cholesterol 15 (5-55) mg/dL HDL Cholesterol 56 (40-60) mg/dL Cholesterol/HDL Ratio 3.0 L (3.3-6.0) TSH 3rd Generation (0.36-3.74) uIU/mL Urine Color Urine Appearance Urine pH (5.0-8.0) Ur Specific [place] (1.001-1.035) Urine Protein (NEGATIVE) mg/dL Urine Glucose (UA) (NEGATIVE) mg/dL Urine Ketones (NEGATIVE) mg/dL Urine Occult Blood (NEGATIVE) Urine Nitrite (NEGATIVE) Urine Bilirubin (NEGATIVE) Urine Urobilinogen (<2.0) EU/dL Ur Leukocyte Esterase (NEGATIVE) Ethyl Alcohol mg/dL SARS-CoV-2 RNA ([place]) (NEGATIVE) 03/29/21 03/29/21 03/29/21 Range/Units 19:54 20:09 22:59 WBC (4.0-11.0) K/uL RBC (4.30-5.90) M/uL Hgb (12.0-16.0) g/dL Hct (36.0-46.0) % MCV (80.0-98.0) fL MCH (27.0-32.0) pg MCHC (31.0-37.0) g/dL RDW Std Deviation (28.0-62.0) fl RDW Coeff of Jeannette (11.0-15.0) % Plt Count (150-400) K/uL MPV (7.40-12.00) fL Neut % (Auto) (48.0-80.0) % Lymph % (Auto) (16.0-40.0) % [place] % (Auto) (0.0-15.0) % Eos % (Auto) (0.0-7.0) % Baso % (Auto) (0.0-1.5) % Neut # (Auto) (1.4-5.7) K/uL Lymph # (Auto) (0.6-2.4) K/uL [place] # (Auto) (0.0-0.8) K/uL Eos # (Auto) (0.0-0.7) K/uL Baso # (Auto) (0.0-0.1) K/uL Nucleated RBC % /100WBC Nucleated RBCs # K/uL D-Dimer, Quantitative (0.0-0.50) mg/L FEU Sodium (136-145) mmol/L Potassium (3.5-5.1) mmol/L Chloride (98-107) mmol/L Carbon Dioxide (21.0-32.0) mmol/L BUN (7.0-18.0) mg/dL Creatinine (0.6-1.0) mg/dL Est Cr Clr Drug Dosing Estimated GFR (MDRD) ml/min Glucose (74-106) mg/dL POC Glucose (70-99) mg/dL Hemoglobin A1c 6.4 H (4.5 - 6.2) % Calcium (8.5-10.1) mg/dL Magnesium (1.8-2.4) mg/dL Total Bilirubin (0.2-1.0) mg/dL AST (15-37) IU/L ALT (14-63) IU/L Alkaline Phosphatase (46-116) U/L Troponin I < 0.050 (0.000-0.056) ng/mL Total Protein (6.4-8.2) g/dL Albumin (3.4-5.0) g/dL Globulin (2.6-4.0) g/dL Albumin/Globulin Ratio (0.9-1.6) Triglycerides (0-200) mg/dL Cholesterol (50-200) mg/dL LDL Cholesterol, Calc (60-180) mg/dL VLDL Cholesterol (5-55) mg/dL HDL Cholesterol (40-60) mg/dL Cholesterol/HDL Ratio (3.3-6.0) TSH 3rd Generation (0.36-3.74) uIU/mL Urine Color Urine Appearance Urine pH (5.0-8.0) Ur Specific [place] (1.001-1.035) Urine Protein (NEGATIVE) mg/dL Urine Glucose (UA) (NEGATIVE) mg/dL Urine Ketones (NEGATIVE) mg/dL Urine Occult Blood (NEGATIVE) Urine Nitrite (NEGATIVE) Urine Bilirubin (NEGATIVE) Urine Urobilinogen (<2.0) EU/dL Ur Leukocyte Esterase (NEGATIVE) Ethyl Alcohol mg/dL SARS-CoV-2 RNA ([place]) NEGATIVE (NEGATIVE) 03/30/21 03/30/21 03/30/21 Range/Units 02:45 06:25 06:27 WBC (4.0-11.0) K/uL RBC (4.30-5.90) M/uL Hgb (12.0-16.0) g/dL Hct (36.0-46.0) % MCV (80.0-98.0) fL MCH (27.0-32.0) pg MCHC (31.0-37.0) g/dL RDW Std Deviation (28.0-62.0) fl RDW Coeff of Jeannette (11.0-15.0) % Plt Count (150-400) K/uL MPV (7.40-12.00) fL Neut % (Auto) (48.0-80.0) % Lymph % (Auto) (16.0-40.0) % [place] % (Auto) (0.0-15.0) % Eos % (Auto) (0.0-7.0) % Baso % (Auto) (0.0-1.5) % Neut # (Auto) (1.4-5.7) K/uL Lymph # (Auto) (0.6-2.4) K/uL [place] # (Auto) (0.0-0.8) K/uL Eos # (Auto) (0.0-0.7) K/uL Baso # (Auto) (0.0-0.1) K/uL Nucleated RBC % /100WBC Nucleated RBCs # K/uL D-Dimer, Quantitative (0.0-0.50) mg/L FEU Sodium (136-145) mmol/L Potassium (3.5-5.1) mmol/L Chloride (98-107) mmol/L Carbon Dioxide (21.0-32.0) mmol/L BUN (7.0-18.0) mg/dL Creatinine (0.6-1.0) mg/dL Est Cr Clr Drug Dosing Estimated GFR (MDRD) ml/min Glucose (74-106) mg/dL POC Glucose 355 H (70-99) mg/dL Hemoglobin A1c (4.5 - 6.2) % Calcium (8.5-10.1) mg/dL Magnesium (1.8-2.4) mg/dL Total Bilirubin (0.2-1.0) mg/dL AST (15-37) IU/L ALT (14-63) IU/L Alkaline Phosphatase (46-116) U/L Troponin I < 0.050 (0.000-0.056) ng/mL Total Protein (6.4-8.2) g/dL Albumin (3.4-5.0) g/dL Globulin (2.6-4.0) g/dL Albumin/Globulin Ratio (0.9-1.6) Triglycerides (0-200) mg/dL Cholesterol (50-200) mg/dL LDL Cholesterol, Calc (60-180) mg/dL VLDL Cholesterol (5-55) mg/dL HDL Cholesterol (40-60) mg/dL Cholesterol/HDL Ratio (3.3-6.0) TSH 3rd Generation (0.36-3.74) uIU/mL Urine Color YELLOW Urine Appearance CLEAR Urine pH 5.0 (5.0-8.0) Ur Specific [place] 1.015 (1.001-1.035) Urine Protein NEGATIVE (NEGATIVE) mg/dL Urine Glucose (UA) >=1000 (NEGATIVE) mg/dL Urine Ketones NEGATIVE (NEGATIVE) mg/dL Urine Occult Blood NEGATIVE (NEGATIVE) Urine Nitrite NEGATIVE (NEGATIVE) Urine Bilirubin NEGATIVE (NEGATIVE) Urine Urobilinogen 0.2 (<2.0) EU/dL Ur Leukocyte Esterase NEGATIVE (NEGATIVE) Ethyl Alcohol mg/dL SARS-CoV-2 RNA ([place]) (NEGATIVE) Result Diagrams: 03/29/21 19:54 03/29/21 19:54 Sepsis Event Note - Evaluation Sepsis Screening Result: No Definite Risk - Focused Exam Vital Signs: Vital Signs Temp Pulse Resp BP BP Pulse Ox 03/30/21 07:52 98.8 F 85 20 146/67 H 97 03/30/21 02:23 97.2 F 77 18 127/72 98 03/29/21 22:42 72 20 130/76 98 03/29/21 21:51 146/84 H 03/29/21 21:12 73 20 145/71 H 100 - Problem List (1) Atypical chest pain SNOMED Code(s): 138620964 ICD Code: R07.89 - OTHER CHEST PAIN Status: Acute Current Visit: No (2) Asthma exacerbation SNOMED Code(s): 137064217 ICD Code: J45.901 - UNSPECIFIED ASTHMA WITH (ACUTE) EXACERBATION Status: Acute Current Visit: No (3) History of CVA (cerebrovascular accident) SNOMED Code(s): 245301589 ICD Code: Z86.73 - PRSNL HX OF TIA (TIA), AND CEREB INFRC W/O RESID DEFICITS Status: Chronic Current Visit: Yes (4) AYLA (obstructive sleep apnea) SNOMED Code(s): 42091019 ICD Code: G47.33 - OBSTRUCTIVE SLEEP APNEA (ADULT) (PEDIATRIC) Status: Chronic Current Visit: Yes (5) Alcohol abuse SNOMED Code(s): 47873993 ICD Code: F10.10 - ALCOHOL ABUSE, UNCOMPLICATED Status: Chronic Current Visit: No (6) Anxiety SNOMED Code(s): 89941756 ICD Code: F41.9 - ANXIETY DISORDER, UNSPECIFIED Status: Chronic Current Visit: No (7) Diabetes mellitus type 2 in obese SNOMED Code(s): 09183361 ICD Code: E11.9 - TYPE 2 DIABETES MELLITUS WITHOUT COMPLICATIONS; E66.9 - OBESITY, UNSPECIFIED Status: Chronic Priority: High Current Visit: No Problem Details: A1C 5.3% (8) History of asthma SNOMED Code(s): 587701941 ICD Code: Z87.09 - PERSONAL HISTORY OF OTHER DISEASES OF THE RESPIRATORY SYSTEM Status: Chronic Current Visit: No (9) History of hypertension SNOMED Code(s): 861821808 ICD Code: Z86.79 - PERSONAL HISTORY OF OTHER DISEASES OF THE CIRCULATORY SYSTEM Status: Chronic Current Visit: No (10) Medical non-compliance SNOMED Code(s): 615943728 ICD Code: Z91.19 - PATIENT'S NONCOMPLIANCE W OTH MEDICAL TREATMENT AND REGIMEN Status: Chronic Current Visit: No (11) Obesity (BMI 30-39.9) SNOMED Code(s): 838065311, 729155073 ICD Code: E66.9 - OBESITY, UNSPECIFIED Status: Chronic Priority: Medium Current Visit: No (12) Smoker SNOMED Code(s): 01563073 ICD Code: F17.200 - NICOTINE DEPENDENCE, UNSPECIFIED, UNCOMPLICATED Status: Chronic Priority: High Current Visit: No Problem List Initiated/Reviewed/Updated: Yes Orders Last 24hrs: Active Orders 24 hr Category Date Time Status Patient Status [ADT] Routine ADT 03/29/21 23:59 Active Ambulate [RC] ASDIRECTED Care 03/30/21 00:41 Active Antiembolic Devices [RC] PER UNIT ROUTINE Care 03/30/21 00:42 Active Blood Glucose Check, Bedside [RC] TIDAC Care 03/30/21 00:47 Active Oxygen Therapy [RC] PRN Care 03/30/21 00:41 Active Pulse Oximetry [RC] PRN Care 03/30/21 00:41 Active RT Aerosol Therapy [RC] ASDIRECTED Care 03/30/21 00:43 Active Telemetry Monitoring [Cardiac Monitoring] [RC] Q8H Care 03/30/21 00:13 Active VTE/DVT Education [RC] PER UNIT ROUTINE Care 03/30/21 00:41 Active Vital Signs [RC] Q4H Care 03/30/21 00:41 Active [employer] Diet [DIET] Diet 03/30/21 Breakfast Active Acetaminophen [TylenoL] Med 03/30/21 00:41 Active 650 mg PO Q4H PRN Albuterol/Ipratropium [DuoNeb 3.0-0.5 MG/3 ML] Med 03/30/21 00:41 Active 3 ml NEB Q4HRRT PRN Aspirin [Halfprin] Med 03/30/21 01:00 Active 81 mg PO DAILY Dextrose 50% in Water Med 03/30/21 00:47 Active 50 ml IVPUSH ASDIRECTED PRN Enoxaparin [Lovenox] Med 03/30/21 09:00 Active 40 mg SUBCUT Q24H Glucagon,Human Recombinant [GlucaGen] Med 03/30/21 00:47 Active 1 mg IM ASDIRECTED PRN Insulin Aspart [NovoLOG] Med 03/30/21 07:30 Active See Protocol SUBCUT TIDAC Lactated Ringers [Ringers, Lactated] 1,000 ml Med 03/30/21 00:45 Active IV ASDIRECTED Morphine Med 03/30/21 00:41 Active 1 mg IVPUSH Q4H PRN Nitroglycerin [Nitrostat] Med 03/29/21 21:41 Active 0.4 mg SL Q5M PRN Ondansetron [Zofran] Med 03/30/21 00:41 Active 4 mg IVPUSH Q4H PRN Pantoprazole [ProTONIX IV] 40 mg Med 03/30/21 00:45 Active Sodium Chloride 0.9% [Normal Saline] 10 ml IV DAILY Sodium Chloride 0.9% [Saline Flush] Med 03/29/21 19:54 Active 10 ml FLUSH ASDIRECTED PRN Sodium Chloride 0.9% [Saline Flush] Med 03/29/21 19:54 Active 2.5 ml FLUSH ASDIRECTED PRN atorvaSTATin [Lipitor] Med 03/30/21 21:00 Active 40 mg PO BEDTIME methylPREDNISolone Sod Succ [Solu-MEDROL] Med 03/30/21 06:00 Active 40 mg IVPUSH Q8H Saline Lock Insert [OM.PC] Stat Oth 03/29/21 19:54 Ordered Sequential Compression Device [OM.PC] Per Unit Routine Oth 03/30/21 00:41 Ordered Medication Orders Acetaminophen (Acetaminophen 325 Mg Tab) 650 mg PO Q4H PRN PRN Reason: Pain (Mild 1-3)/fever Albuterol/Ipratropium (Albuterol/Ipratropium 3.0-0.5 Mg/3 Ml Neb Soln) 3 ml NEB Q4HRRT PRN PRN Reason: Shortness Of Breath/wheezing Aspirin (Aspirin 81 Mg Tab.Ec) 81 mg PO DAILY MARCELO Last Admin: 03/30/21 02:25 Dose: 81 mg Documented by: YOLI Atorvastatin Calcium (Atorvastatin 40 Mg Tab) 40 mg PO BEDTIME [facility] Dextrose/Water (50% Dextrose In Water 50 Ml Syringe) 50 ml IVPUSH ASDIRECTED PRN PRN Reason: Hypoglycemia Enoxaparin Sodium (Enoxaparin 40 Mg/0.4 Ml Syringe) 40 mg SUBCUT Q24H [facility] Glucagon (Glucagon,Human Recombinant 1 Mg Vial) 1 mg IM ASDIRECTED PRN PRN Reason: Hypoglycemia Lactated Ringer's (Ringers, Lactated) 1,000 mls @ 125 mls/hr IV ASDIRECTED MARCELO Last Admin: 03/30/21 02:26 Dose: 125 mls/hr Documented by: YOLI Pantoprazole Sodium 40 mg/ (Sodium Chloride) 10 mls @ 300 mls/hr IV DAILY [facility] Last Admin: 03/30/21 02:26 Dose: 300 mls/hr Documented by: YOLI Insulin Aspart (Insulin Aspart 100 Units/Ml 3 Ml Pen) [facility] Protocol Last Admin: 03/30/21 07:33 Dose: 5 units Documented by: YOLI Methylprednisolone Sodium Succinate (Methylprednisolone Sodium Succinate 40 Mg/1 Ml Sdv) 40 mg IVPUSH Q8H [facility] Last Admin: 03/30/21 06:20 Dose: 40 mg Documented by: YOLI Morphine Sulfate (Morphine 2 Mg/Ml Syringe) 1 mg IVPUSH Q4H PRN PRN Reason: Pain (severe 7-10) Stop: 03/31/21 00:42 Last Admin: 03/30/21 02:43 Dose: 1 mg Documented by: YOLI Nitroglycerin (Nitroglycerin 0.4 Mg Tab.Sl) 0.4 mg SL Q5M PRN PRN Reason: Chest Pain Last Admin: 03/29/21 21:51 Dose: 0.4 mg Documented by: NIC Ondansetron HCl (Ondansetron 4 Mg/2 Ml Sdv) 4 mg IVPUSH Q4H PRN PRN Reason: Nausea/Vomiting Sodium Chloride (Sodium Chloride 0.9% 10 Ml Syringe) 10 ml FLUSH ASDIRECTED PRN PRN Reason: Keep Vein Open Last Admin: 03/29/21 19:59 Dose: 10 ml Documented by: CARLOS Sodium Chloride (Sodium Chloride 0.9% 2.5 Ml Syringe) 2.5 ml FLUSH ASDIRECTED PRN PRN Reason: Keep Vein Open Last Admin: 03/29/21 19:59 Dose: 2.5 ml Documented by: CARLOS Assessment/Plan Comment:: This 55-year-old female admitted with atypical chest pain and asthma exacerbation. 1. Atypical chest pain -Troponins negative x3 -No findings on EKG or telemetry indicative of ischemia -Patient pain related to likely more gastritis as GI cocktail tends to help pain -Due to history and elevated risk will arrange for outpatient stress test for patient - A1c 6.4 cholesterol 167 triglyceride 76 LDL 96 and HDL 56. TSH 0.92. -For possible gastritis will add Maalox as needed as well as Protonix, encourage sobriety -Encouraged compliance with medication -Discussed smoking cessation for greater than 5 minutes. 2. Asthma exacerbation questionable COPD -May need to have PFT as outpatient -Reports she is run out of inhalers at home. -Significant wheezing audible and rhonchorous breath sounds on assessment. -Continue Solu-Medrol 40 mg every 8 hours -Scheduled DuoNebs every 4 hours and albuterol nebulizer as needed -Restart Advair -Encourage deep breathing coughing and I-S -Likely arrange outpatient PFT 3. DM type II -Well-controlled 6.4 A1c -ADA diet -NovoLog sliding scale with meals 4. Hypertension -Continue HCTZ/lisinopril 5. History of alcohol abuse -CIWAA with Ativan protocol as needed -Thiamine and folic acid supplementation VTE prophylaxis: Lovenox GI prophylaxis: Protonix CODE STATUS: Full code Dispo: 1 to 2 days pending improvement of asthma symptoms. - Mortality Measure Prognosis:: Good
[2021-03-30] MEDS: Enoxaparin 40 MG/0.4 ML Syringe SUBCUT SCH (08:42)
[2021-03-30] MEDS ORDERED: Alum Hydrox/Mag Hydrox/Simeth 15 ML, Lidocaine 2% 5 ML PO ONE ×2 (09:18)
[2021-03-30] MEDS ORDERED: Albuterol 0.083% 2.5 MG/3 ML Neb Soln NEB PRN (09:19)
[2021-03-30] MEDS ORDERED: LORazepam 2 MG/ML SDV IVPUSH PRN (09:20)
[2021-03-30] MEDS: Albuterol/Ipratropium 3.0-0.5 MG/3 ML Neb Soln NEB SCH ×4 (09:32→22:44)
[2021-03-30] MEDS: Folic Acid 1 MG Tab PO SCH (09:43)
[2021-03-30] MEDS: Fluticasone/Salmeterol 250-50 MCG Inhalation Powder 14/Diskus INH SCH ×2 (09:43→21:21)
[2021-03-30] MEDS: Thiamine 100 MG Tab PO SCH (10:05)
[2021-03-30] MEDS ORDERED: Lisinopril/Hydrochlorothiazide 10-12.5 MG Tab PO SCH (13:45)
[2021-03-30] MEDS: Acetaminophen 325 MG Tab PO PRN (18:06)
[2021-03-30] MEDS: Lisinopril/Hydrochlorothiazide 10-12.5 MG Tab PO SCH (21:21)
[2021-03-30] MEDS: Montelukast 10 MG Tab PO SCH (21:21)
[2021-03-30] MEDS: atorvaSTATin 40 MG Tab PO SCH (21:21)
[2021-03-31] MEDS: Albuterol/Ipratropium 3.0-0.5 MG/3 ML Neb Soln NEB SCH ×6 (02:43→22:35)
[2021-03-31 05:49] LABS: POTASSIUM,K 4.9 mmol/L (3.5-5.1)
[2021-03-31] MEDS: methylPREDNISolone Sodium Succinate 40 MG/1 ML SDV IVPUSH SCH (06:15)
[2021-03-31] MEDS: Pantoprazole 40 MG in Sodium Chloride 0.9% 10 ML IV SCH (08:36)
[2021-03-31] MEDS: Aspirin 81 MG Tab.EC PO SCH (08:37)
[2021-03-31] MEDS: Enoxaparin 40 MG/0.4 ML Syringe SUBCUT SCH (08:37)
[2021-03-31] MEDS: Folic Acid 1 MG Tab PO SCH (08:37)
[2021-03-31] MEDS: Thiamine 100 MG Tab PO SCH (08:37)
[2021-03-31] MEDS: Insulin Aspart 100 Units/ML 3 ML Pen SUBCUT SCH ×3 (08:38→16:38)
[2021-03-31] MEDS: Acetaminophen 325 MG Tab PO PRN ×3 (08:42→22:44)
[2021-03-31] MEDS: Fluticasone/Salmeterol 250-50 MCG Inhalation Powder 14/Diskus INH SCH ×2 (08:46→21:16)
--- NOTE | 2021-03-31 10:42 | PCM.PN ---
- General Info Date of Service: 03/31/21 Admission Dx/Problem (Free Text): Admission Diagnosis/Problem Admission Diagnosis/Problem Chest pain Subjective Update: Reports he is feeling improved today. No further having chest pain. Reports breathing has improved but continues to have some wheezing. Does not feel comfortable going home today. No other concerns at this time. Eating and drinking appropriately. Functional Status: Reports: Pain Controlled, Tolerating Diet, Ambulating, Urinating - Review of Systems General: Reports: Fatigue, Malaise HEENT: Reports: No Symptoms Pulmonary: Reports: Shortness of Breath, Wheezing Cardiovascular: Reports: No Symptoms. Denies: Chest Pain Gastrointestinal: Reports: No Symptoms. Denies: Abdominal Pain, Nausea, Vomiting Genitourinary: Reports: No Symptoms Musculoskeletal: Reports: No Symptoms Skin: Reports: No Symptoms Neurological: Reports: No Symptoms Psychiatric: Reports: No Symptoms - Patient Data Vitals - Most Recent: Last Vital Signs Temp 97.9 F 03/31/21 07:07 Pulse 66 03/31/21 07:07 Resp 16 03/31/21 07:07 BP 160/77 H 03/31/21 07:07 Pulse Ox 99 03/31/21 07:07 Weight - Most Recent: 111.448 kg I&O - Last 24 Hours: Intake & Output 03/30/21 03/31/21 03/31/21 22:59 06:59 14:59 Intake Total 1240 750 Output Total 1051 850 Balance 189 -100 Lab Results Last 24 Hours: Laboratory Results - last 24 hr 03/30/21 03/30/21 03/31/21 Range/Units 11:36 16:36 05:00 WBC 11.03 H (4.0-11.0) K/uL RBC 3.43 L (4.30-5.90) M/uL Hgb 9.7 L (12.0-16.0) g/dL Hct 29.9 L (36.0-46.0) % MCV 87.2 (80.0-98.0) fL MCH 28.3 (27.0-32.0) pg MCHC 32.4 (31.0-37.0) g/dL RDW Std Deviation 49.4 (28.0-62.0) fl RDW Coeff of Jeannette 15 (11.0-15.0) % Plt Count 244 (150-400) K/uL MPV 10.80 (7.40-12.00) fL Neut % (Auto) 86.7 H (48.0-80.0) % Lymph % (Auto) 7.8 L (16.0-40.0) % Republic % (Auto) 5.5 (0.0-15.0) % Eos % (Auto) 0.0 (0.0-7.0) % Baso % (Auto) 0.0 (0.0-1.5) % Neut # (Auto) 9.6 H (1.4-5.7) K/uL Lymph # (Auto) 0.9 (0.6-2.4) K/uL Republic # (Auto) 0.6 (0.0-0.8) K/uL Eos # (Auto) 0.0 (0.0-0.7) K/uL Baso # (Auto) 0.0 (0.0-0.1) K/uL Nucleated RBC % 0.0 /100WBC Nucleated RBCs # 0 K/uL Sodium (136-145) mmol/L Potassium (3.5-5.1) mmol/L Chloride (98-107) mmol/L Carbon Dioxide (21.0-32.0) mmol/L BUN (7.0-18.0) mg/dL Creatinine (0.6-1.0) mg/dL Est Cr Clr Drug Dosing mL/min Estimated GFR (MDRD) ml/min Glucose (74-106) mg/dL POC Glucose 168 H 247 H (70-99) mg/dL Calcium (8.5-10.1) mg/dL Magnesium (1.8-2.4) mg/dL 03/31/21 03/31/21 Range/Units 05:00 06:28 WBC (4.0-11.0) K/uL RBC (4.30-5.90) M/uL Hgb (12.0-16.0) g/dL Hct (36.0-46.0) % MCV (80.0-98.0) fL MCH (27.0-32.0) pg MCHC (31.0-37.0) g/dL RDW Std Deviation (28.0-62.0) fl RDW Coeff of Jeannette (11.0-15.0) % Plt Count (150-400) K/uL MPV (7.40-12.00) fL Neut % (Auto) (48.0-80.0) % Lymph % (Auto) (16.0-40.0) % Republic % (Auto) (0.0-15.0) % Eos % (Auto) (0.0-7.0) % Baso % (Auto) (0.0-1.5) % Neut # (Auto) (1.4-5.7) K/uL Lymph # (Auto) (0.6-2.4) K/uL Republic # (Auto) (0.0-0.8) K/uL Eos # (Auto) (0.0-0.7) K/uL Baso # (Auto) (0.0-0.1) K/uL Nucleated RBC % /100WBC Nucleated RBCs # K/uL Sodium 134 L (136-145) mmol/L Potassium 4.9 (3.5-5.1) mmol/L Chloride 101 (98-107) mmol/L Carbon Dioxide 24.0 (21.0-32.0) mmol/L BUN 27 H (7.0-18.0) mg/dL Creatinine 1.3 H (0.6-1.0) mg/dL Est Cr Clr Drug Dosing 46.43 mL/min Estimated GFR (MDRD) 51.2 ml/min Glucose 282 H (74-106) mg/dL POC Glucose 247 H (70-99) mg/dL Calcium 9.3 (8.5-10.1) mg/dL Magnesium 1.8 (1.8-2.4) mg/dL Med Orders - Current: Current Medications Acetaminophen (Acetaminophen 325 Mg Tab) 650 mg PO Q4H PRN PRN Reason: Pain (Mild 1-3)/fever Last Admin: 03/31/21 08:42 Dose: 650 mg Documented by: Al Hydroxide/Mg Hydroxide (Aluminum Hydroxide/Magnesium Hydroxide/Simethicone Susp 30 Ml Cup) 30 ml PO Q4H PRN PRN Reason: Indigestion Albuterol (Albuterol 0.083% 2.5 Mg/3 Ml Neb Soln) 2.5 mg NEB Q2H PRN PRN Reason: Shortness Of Breath/wheezing Albuterol/Ipratropium (Albuterol/Ipratropium 3.0-0.5 Mg/3 Ml Neb Soln) 3 ml NEB Q4HRRT [facility] Last Admin: 03/31/21 09:38 Dose: 3 ml Documented by: Aspirin (Aspirin 81 Mg Tab.Ec) 81 mg PO DAILY [facility] Last Admin: 03/31/21 08:37 Dose: 81 mg Documented by: Atorvastatin Calcium (Atorvastatin 40 Mg Tab) 40 mg PO BEDTIME [facility] Last Admin: 03/30/21 21:21 Dose: 40 mg Documented by: Dextrose/Water (50% Dextrose In Water 50 Ml Syringe) 50 ml IVPUSH ASDIRECTED PRN PRN Reason: Hypoglycemia Enoxaparin Sodium (Enoxaparin 40 Mg/0.4 Ml Syringe) 40 mg SUBCUT Q24H [facility] Last Admin: 03/31/21 08:37 Dose: 40 mg Documented by: Folic Acid (Folic Acid 1 Mg Tab) 1 mg PO DAILY [facility] Last Admin: 03/31/21 08:37 Dose: 1 mg Documented by: Glucagon (Glucagon,Human Recombinant 1 Mg Vial) 1 mg IM ASDIRECTED PRN PRN Reason: Hypoglycemia Lisinopril/HCTZ (Lisinopril/Hydrochlorothiazide 10-12.5 Mg Tab) 1 tab PO BEDTIME [facility] Last Admin: 03/30/21 21:21 Dose: 1 tab Documented by: Pantoprazole Sodium 40 mg/ (Sodium Chloride) 10 mls @ 300 mls/hr IV DAILY [facility] Last Admin: 03/31/21 08:36 Dose: 300 mls/hr Documented by: Insulin Aspart (Insulin Aspart 100 Units/Ml 3 Ml Pen) 0 unit SUBCUT TIDAC [facility]; Protocol Last Admin: 03/31/21 08:38 Dose: 2 units Documented by: Lorazepam (Lorazepam 2 Mg/Ml Sdv) 1 mg IVPUSH Q4H PRN PRN Reason: CIWAA Methylprednisolone Sodium Succinate (Methylprednisolone Sodium Succinate 40 Mg/1 Ml Sdv) 40 mg IVPUSH Q8H [facility] Last Admin: 03/31/21 06:15 Dose: 40 mg Documented by: Montelukast Sodium (Montelukast 10 Mg Tab) 10 mg PO BEDTIME [facility] Last Admin: 03/30/21 21:21 Dose: 10 mg Documented by: Nitroglycerin (Nitroglycerin 0.4 Mg Tab.Sl) 0.4 mg SL Q5M PRN PRN Reason: Chest Pain Last Admin: 03/29/21 21:51 Dose: 0.4 mg Documented by: Ondansetron HCl (Ondansetron 4 Mg/2 Ml Sdv) 4 mg IVPUSH Q4H PRN PRN Reason: Nausea/Vomiting Fluticasone/Salmeterol (Fluticasone/Salmeterol 250-50 Mcg Inhalation Powder 1 4/Diskus) 1 puff INH BID [facility] Last Admin: 03/31/21 08:46 Dose: 1 puff Documented by: Sodium Chloride (Sodium Chloride 0.9% 10 Ml Syringe) 10 ml FLUSH ASDIRECTED PRN PRN Reason: Keep Vein Open Last Admin: 03/29/21 19:59 Dose: 10 ml Documented by: Sodium Chloride (Sodium Chloride 0.9% 2.5 Ml Syringe) 2.5 ml FLUSH ASDIRECTED PRN PRN Reason: Keep Vein Open Last Admin: 03/29/21 19:59 Dose: 2.5 ml Documented by: Thiamine HCl (Thiamine 100 Mg Tab) 100 mg PO DAILY [facility] Last Admin: 03/31/21 08:37 Dose: 100 mg Documented by: Discontinued Medications Albuterol/Ipratropium (Albuterol/Ipratropium 3.0-0.5 Mg/3 Ml Neb Soln) 3 ml NEB ONETIME ONE Stop: 03/29/21 23:16 Last Admin: 03/29/21 23:51 Dose: 3 ml Documented by: Albuterol/Ipratropium (Albuterol/Ipratropium 3.0-0.5 Mg/3 Ml Neb Soln) 3 ml NEB Q4HRRT PRN PRN Reason: Shortness Of Breath/wheezing Al Hydroxide/Mg Hydroxide 15 (ml/ Lidocaine HCl 5 ml) 0 ml PO ONETIME ONE Stop: 03/30/21 09:19 Last Admin: 03/30/21 10:04 Dose: 20 each Documented by: Enoxaparin Sodium (Enoxaparin 40 Mg/0.4 Ml Syringe) 40 mg SUBCUT Q24H [facility] Last Admin: 03/30/21 01:51 Dose: Not Given Documented by: Lisinopril/HCTZ (Lisinopril/Hydrochlorothiazide 10-12.5 Mg Tab) 1 tab PO DAILY [facility] Sodium Chloride (Normal Saline) 1,000 mls @ 999 mls/hr IV STAT ONE Stop: 03/29/21 21:02 Last Admin: 03/29/21 20:27 Dose: 999 mls/hr Documented by: Sodium Chloride (Normal Saline) 1,000 mls @ 999 mls/hr IV .Bolus ONE Stop: 03/29/21 22:17 Last Admin: 03/29/21 22:39 Dose: 999 mls/hr Documented by: Lactated Ringer's (Ringers, Lactated) 1,000 mls @ 125 mls/hr IV ASDIRECTED MARCELO Last Admin: 03/30/21 02:26 Dose: 125 mls/hr Documented by: Iopamidol (Iopamidol 755 Mg/Ml 500 Ml Multipack Bottle) 100 ml IVPUSH ONETIME STA Stop: 03/29/21 21:38 Last Admin: 03/29/21 22:13 Dose: 75 ml Documented by: Lorazepam (Lorazepam 2 Mg/Ml Sdv) 2 mg IVPUSH ONETIME ONE Stop: 03/29/21 21:41 Last Admin: 03/29/21 22:35 Dose: 2 mg Documented by: Magnesium Oxide (Magnesium Oxide 400 Mg Tab) 800 mg PO ONETIME ONE Stop: 03/30/21 00:41 Last Admin: 03/30/21 02:25 Dose: 800 mg Documented by: Methylprednisolone Sodium Succinate (Methylprednisolone Sodium Succinate 125 Mg/2 Ml Sdv) 125 mg IVPUSH ONETIME ONE Stop: 03/29/21 23:17 Last Admin: 03/29/21 23:51 Dose: 125 mg Documented by: Morphine Sulfate (Morphine 2 Mg/Ml Syringe) 2 mg IVPUSH ONETIME ONE Stop: 03/29/21 20:03 Last Admin: 03/29/21 20:27 Dose: 2 mg Documented by: Morphine Sulfate (Morphine 2 Mg/Ml Syringe) 1 mg IVPUSH Q4H PRN PRN Reason: Pain (severe 7-10) Stop: 03/31/21 00:42 Last Admin: 03/30/21 13:28 Dose: 1 mg Documented by: Nitroglycerin (Nitroglycerin 0.4 Mg Tab.Sl) Confirm Administered Dose 0.4 mg .ROUTE .STK-MED ONE Stop: 03/29/21 21:50 Last Admin: 03/29/21 21:51 Dose: Not Given Documented by: Ondansetron HCl (Ondansetron 4 Mg/2 Ml Sdv) 4 mg IVPUSH ONETIME ONE Stop: 03/29/21 20:07 Last Admin: 03/29/21 20:27 Dose: 4 mg Documented by: - Exam Quality Assessment: DVT Prophylaxis. No: Supplemental Oxygen General: Alert, Oriented, Cooperative, No Acute Distress Lungs: Normal Respiratory Effort, Wheezing (Much improved from previous day) Cardiovascular: Regular Rate, Regular Rhythm GI/Abdominal Exam: Normal Bowel Sounds, Soft, Non-Tender Extremities: Normal Inspection, Normal Range of Motion, Non-Tender, No Pedal Edema Neurological: No New Focal Deficit Psy/Mental Status: Alert, Normal Affect, Normal Mood - Patient Data Lab Results Last 24 hrs: Laboratory Results - last 24 hr 03/30/21 03/30/21 03/31/21 Range/Units 11:36 16:36 05:00 WBC 11.03 H (4.0-11.0) K/uL RBC 3.43 L (4.30-5.90) M/uL Hgb 9.7 L (12.0-16.0) g/dL Hct 29.9 L (36.0-46.0) % MCV 87.2 (80.0-98.0) fL MCH 28.3 (27.0-32.0) pg MCHC 32.4 (31.0-37.0) g/dL RDW Std Deviation 49.4 (28.0-62.0) fl RDW Coeff of Jeannette 15 (11.0-15.0) % Plt Count 244 (150-400) K/uL MPV 10.80 (7.40-12.00) fL Neut % (Auto) 86.7 H (48.0-80.0) % Lymph % (Auto) 7.8 L (16.0-40.0) % Republic % (Auto) 5.5 (0.0-15.0) % Eos % (Auto) 0.0 (0.0-7.0) % Baso % (Auto) 0.0 (0.0-1.5) % Neut # (Auto) 9.6 H (1.4-5.7) K/uL Lymph # (Auto) 0.9 (0.6-2.4) K/uL Republic # (Auto) 0.6 (0.0-0.8) K/uL Eos # (Auto) 0.0 (0.0-0.7) K/uL Baso # (Auto) 0.0 (0.0-0.1) K/uL Nucleated RBC % 0.0 /100WBC Nucleated RBCs # 0 K/uL Sodium (136-145) mmol/L Potassium (3.5-5.1) mmol/L Chloride (98-107) mmol/L Carbon Dioxide (21.0-32.0) mmol/L BUN (7.0-18.0) mg/dL Creatinine (0.6-1.0) mg/dL Est Cr Clr Drug Dosing mL/min Estimated GFR (MDRD) ml/min Glucose (74-106) mg/dL POC Glucose 168 H 247 H (70-99) mg/dL Calcium (8.5-10.1) mg/dL Magnesium (1.8-2.4) mg/dL 03/31/21 03/31/21 Range/Units 05:00 06:28 WBC (4.0-11.0) K/uL RBC (4.30-5.90) M/uL Hgb (12.0-16.0) g/dL Hct (36.0-46.0) % MCV (80.0-98.0) fL MCH (27.0-32.0) pg MCHC (31.0-37.0) g/dL RDW Std Deviation (28.0-62.0) fl RDW Coeff of Jeannette (11.0-15.0) % Plt Count (150-400) K/uL MPV (7.40-12.00) fL Neut % (Auto) (48.0-80.0) % Lymph % (Auto) (16.0-40.0) % Republic % (Auto) (0.0-15.0) % Eos % (Auto) (0.0-7.0) % Baso % (Auto) (0.0-1.5) % Neut # (Auto) (1.4-5.7) K/uL Lymph # (Auto) (0.6-2.4) K/uL Republic # (Auto) (0.0-0.8) K/uL Eos # (Auto) (0.0-0.7) K/uL Baso # (Auto) (0.0-0.1) K/uL Nucleated RBC % /100WBC Nucleated RBCs # K/uL Sodium 134 L (136-145) mmol/L Potassium 4.9 (3.5-5.1) mmol/L Chloride 101 (98-107) mmol/L Carbon Dioxide 24.0 (21.0-32.0) mmol/L BUN 27 H (7.0-18.0) mg/dL Creatinine 1.3 H (0.6-1.0) mg/dL Est Cr Clr Drug Dosing 46.43 mL/min Estimated GFR (MDRD) 51.2 ml/min Glucose 282 H (74-106) mg/dL POC Glucose 247 H (70-99) mg/dL Calcium 9.3 (8.5-10.1) mg/dL Magnesium 1.8 (1.8-2.4) mg/dL Result Diagrams: 03/31/21 05:00 03/31/21 05:00 Sepsis Event Note - Evaluation Sepsis Screening Result: No Definite Risk - Focused Exam Vital Signs: Vital Signs Temp Pulse Resp BP Pulse Ox 03/31/21 07:07 97.9 F 66 16 160/77 H 99 03/31/21 03:34 97.7 F 70 19 157/78 H 98 03/31/21 00:48 97.0 F 81 19 164/84 H 99 - Problem List & Annotations (1) Atypical chest pain SNOMED Code(s): 683243453 Code(s): R07.89 - OTHER CHEST PAIN Status: Acute Current Visit: No (2) Asthma exacerbation SNOMED Code(s): 225448013 Code(s): J45.901 - UNSPECIFIED ASTHMA WITH (ACUTE) EXACERBATION Status: Acute Current Visit: No (3) History of CVA (cerebrovascular accident) SNOMED Code(s): 860305303 Code(s): Z86.73 - PRSNL HX OF TIA (TIA), AND CEREB INFRC W/O RESID DEFICITS Status: Chronic Current Visit: Yes (4) AYLA (obstructive sleep apnea) SNOMED Code(s): 04571985 Code(s): G47.33 - OBSTRUCTIVE SLEEP APNEA (ADULT) (PEDIATRIC) Status: Chronic Current Visit: Yes (5) Alcohol abuse SNOMED Code(s): 65683880 Code(s): F10.10 - ALCOHOL ABUSE, UNCOMPLICATED Status: Chronic Current Vi sit: No (6) Anxiety SNOMED Code(s): 56768207 Code(s): F41.9 - ANXIETY DISORDER, UNSPECIFIED Status: Chronic Current Visit: No (7) Diabetes mellitus type 2 in obese SNOMED Code(s): 19799914 Code(s): E11.9 - TYPE 2 DIABETES MELLITUS WITHOUT COMPLICATIONS; E66.9 - OBESITY, UNSPECIFIED Status: Chronic Priority: High Current Visit: No Annotation/Comment:: A1C 5.3% (8) History of asthma SNOMED Code(s): 205081721 Code(s): Z87.09 - PERSONAL HISTORY OF OTHER DISEASES OF THE RESPIRATORY SYSTEM Status: Chronic Current Visit: No (9) History of hypertension SNOMED Code(s): 120856711 Code(s): Z86.79 - PERSONAL HISTORY OF OTHER DISEASES OF THE CIRCULATORY SYSTEM Status: Chronic Current Visit: No (10) Medical non-compliance SNOMED Code(s): 519692255 Code(s): Z91.19 - PATIENT'S NONCOMPLIANCE W OTH MEDICAL TREATMENT AND REGIMEN Status: Chronic Current Visit: No (11) Obesity (BMI 30-39.9) SNOMED Code(s): 108291735, 455982395 Code(s): E66.9 - OBESITY, UNSPECIFIED Status: Chronic Priority: Medium Current Visit: No (12) Smoker SNOMED Code(s): 51407221 Code(s): F17.200 - NICOTINE DEPENDENCE, UNSPECIFIED, UNCOMPLICATED Status: Chronic Priority: High Current Visit: No - Problem List Review Problem List Initiated/Reviewed/Updated: Yes - My Orders Last 24 Hours: My Active Orders 03/30/21 10:00 Albuterol/Ipratropium [DuoNeb 3.0-0.5 MG/3 ML] 3 ml NEB Q4HRRT 03/30/21 12:04 Alum Hydrox/Mag Hydrox/Simeth [Mag-Al Plus] 30 ml PO Q4H PRN 03/30/21 21:00 Lisinopril/Hydrochlorothiazide [Lisinopril-HCTZ 10-12.5 MG] 1 tab PO BEDTIME Montelukast [Singulair] 10 mg PO BEDTIME - Plan Plan:: This 55-year-old female admitted with atypical chest pain and asthma exacerbation. 1. Atypical chest pain -No longer having chest pain -Troponins negative x3 -No findings on EKG or telemetry indicative of ischemia -Due to history and elevated risk will arrange for outpatient stress test for patient - A1c 6.4 cholesterol 167 triglyceride 76 LDL 96 and HDL 56. TSH 0.92. 2. Gastritis -Continue Maalox as needed as well as Protonix, encourage sobriety -Continue Protonix 3. Asthma exacerbation questionable COPD -May need to have PFT as outpatient -Improvement of breath sounds continues to have mild wheezing otherwise much improved. T. -Discontinue Solu-Medrol start prednisone 40 mg p.o. in the a.m. -Scheduled DuoNebs every 4 hours and albuterol nebulizer as needed -Continue Advair -Encourage deep breathing coughing and I-S -Likely arrange outpatient PFT 4. DM type II -Well-controlled 6.4 A1c -ADA diet -NovoLog sliding scale with meals 5. Hypertension -Continue HCTZ/lisinopril 6. History of alcohol abuse -CIWAA with Ativan protocol as needed -Thiamine and folic acid supplementation VTE prophylaxis: Lovenox GI prophylaxis: Protonix CODE STATUS: Full code Dispo: Discharge home in a.m.
[2021-03-31] MEDS: Aluminum Hydroxide/Magnesium Hydroxide/Simethicone Susp 30 ML Cup PO PRN ×2 (16:29→22:44)
[2021-03-31] MEDS: Lisinopril/Hydrochlorothiazide 10-12.5 MG Tab PO SCH (20:56)
[2021-03-31] MEDS: Montelukast 10 MG Tab PO SCH (20:56)
[2021-03-31] MEDS: atorvaSTATin 40 MG Tab PO SCH (20:57)
[2021-04-01] MEDS: Albuterol/Ipratropium 3.0-0.5 MG/3 ML Neb Soln NEB SCH ×3 (02:31→09:40)
[2021-04-01] MEDS: Pantoprazole 40 MG in Sodium Chloride 0.9% 10 ML IV SCH ×2 (07:38→09:10)
[2021-04-01] MEDS: Insulin Aspart 100 Units/ML 3 ML Pen SUBCUT SCH (07:48)
[2021-04-01] MEDS: Acetaminophen 325 MG Tab PO PRN (07:51)
[2021-04-01] MEDS ORDERED: predniSONE 20 MG Tab PO SCH (08:00)
[2021-04-01 08:12] VITALS: BP 169/91; PULSE 60
[2021-04-01] MEDS: Folic Acid 1 MG Tab PO SCH (08:26)
[2021-04-01] MEDS: Aspirin 81 MG Tab.EC PO SCH (08:26)
[2021-04-01] MEDS: Thiamine 100 MG Tab PO SCH (08:26)
[2021-04-01] MEDS: Enoxaparin 40 MG/0.4 ML Syringe SUBCUT SCH (08:27)
[2021-04-01] MEDS: Fluticasone/Salmeterol 250-50 MCG Inhalation Powder 14/Diskus INH SCH (09:40)
--- NOTE | 2021-04-01 10:42 | PCM.DCSUM1 ---
Discharge Summary - Hospital Course Brief History: This 55-year-old female with past medical history of alcohol abuse, type 2 diabetes, asthma, CVA, NC, HTN and AYLA presents to the ER with complaints of midsternal chest pain that radiated to the left side of her neck and left shoulder. She reports that she had noticed this pain over the past couple days but yesterday it started radiating concerned her. She reports associated nausea and dizziness. She did take aspirin each day with the pain which did help. She also did take aspirin prior to arrival to the ER. She reports this pain is somewhat like heartburn and hurting up into the back of her throat. She reports his pain pain is sharp shooting. And is intermittent. She reports she has been compliant with her medications. Reports that she has not been drinking alcohol nearly as much as she used to, but continues to have tremors that she does not have any drinks. She also reports running out of inhalers and needing more of those reporting that she is feeling more short of breath and having significant wheezing. She denies any fevers chills headache or neck pain. Denies any syncopal episodes. Denies any back pain. She denies any abdominal pain, nausea, vomiting, diarrhea constipation or black or bloody bowel movements. She reports she has been eating and drinking well. She did report drinking some alcohol earlier yesterday. Reports she continues to smoke half a pack a day denies any recreational drug use. In the ER no leukocytosis noted. Hemoglobin 11.0 hematocrit 33.7. D-dimer elevated 7.48. Sodium 141 potassium 4.3. BUN 26 creatinine 1.3, which is near baseline. A1c 6.4. Magnesium 1.7 bilirubin 0.3 AST ALT 14 and 13 respectively. Troponin negative. Triglyceride 76 total cholesterol 167, HDL 56 LDL 96. TSH 0.92. UA negative. Alcohol level negative Covid swab negative. CTA of the chest obtained due to elevated D-dimer. No evidence of pulmonary embolism. Mild dilation of the ascending thoracic aorta measuring 4.1 cm stable compared to study 1 year prior. Chest x-ray negative. EKG revealed normal sinus rhythm with right bundle branch block heart rate [address] or T wave changes, no signs of ischemia. Patient will be admitted for chest pain rule out ACS. PCP Dr. Hand. Upon assessment of medications and her possession. It appears patient has multiple refills of multiple medications and does not appear that she is completely compliant with taking medications as prescribed. Empty Advair Diskus noted. Diagnosis: Stroke: No - Discharge Data Discharge Date: 04/01/21 Discharge Disposition: Home, Self-Care 01 Condition: Good - Referral to Home Health Primary Care Physician: PCP None - Discharge Diagnosis/Problem(s) (1) Atypical chest pain SNOMED Code(s): 466585461 ICD Code: R07.89 - OTHER CHEST PAIN Status: Acute (2) Asthma exacerbation SNOMED Code(s): 486877809 ICD Code: J45.901 - UNSPECIFIED ASTHMA WITH (ACUTE) EXACERBATION Status: Acute (3) History of CVA (cerebrovascular accident) SNOMED Code(s): 091782597 ICD Code: Z86.73 - PRSNL HX OF TIA (TIA), AND CEREB INFRC W/O RESID DEFICITS Status: Chronic (4) AYLA (obstructive sleep apnea) SNOMED Code(s): 50685408 ICD Code: G47.33 - OBSTRUCTIVE SLEEP APNEA (ADULT) (PEDIATRIC) Status: Chronic (5) Alcohol abuse SNOMED Code(s): 15026232 ICD Code: F10.10 - ALCOHOL ABUSE, UNCOMPLICATED Status: Chronic (6) Anxiety SNOMED Code(s): 85884380 ICD Code: F41.9 - ANXIETY DISORDER, UNSPECIFIED Status: Chronic (7) Diabetes mellitus type 2 in obese SNOMED Code(s): 05158541 ICD Code: E11.9 - TYPE 2 DIABETES MELLITUS WITHOUT COMPLICATIONS; E66.9 - OBESITY, UNSPECIFIED Status: Chronic Priority: High Problem Details: A1C 5.3% (8) History of asthma SNOMED Code(s): 241080352 ICD Code: Z87.09 - PERSONAL HISTORY OF OTHER DISEASES OF THE RESPIRATORY SYSTEM Status: Chronic (9) History of hypertension SNOMED Code(s): 373981406 ICD Code: Z86.79 - PERSONAL HISTORY OF OTHER DISEASES OF THE CIRCULATORY SYSTEM Status: Chronic (10) Medical non-compliance SNOMED Code(s): 986610795 ICD Code: Z91.19 - PATIENT'S NONCOMPLIANCE W OTH MEDICAL TREATMENT AND REGIMEN Status: Chronic (11) Obesity (BMI 30-39.9) SNOMED Code(s): 594899418, 736752720 ICD Code: E66.9 - OBESITY, UNSPECIFIED Status: Chronic Priority: Medium (12) Smoker SNOMED Code(s): 77323490 ICD Code: F17.200 - NICOTINE DEPENDENCE, UNSPECIFIED, UNCOMPLICATED Status: Chronic Priority: High - Patient Summary/Data Hospital Course: Admission diagnoses Atypical chest pain Asthma exacerbation Discharge diagnoses Atypical chest pain resolved Asthma exacerbation Other PMH History CVA AYLA Alcohol abuse Anxiety DM type II HTN Obesity Smoker Medical noncompliance with medication Shaunna was admitted secondary to atypical chest pain. She was monitored on telemetry along with troponin monitoring. Troponins returned all negative. No acute ischemic changes noted on telemetry. Patient appears to not be taking medications as she had multiple refills with full bottles within her possession. Patient counseled heavily on appropriate use of medications as well as tobacco cessation. Patient had significant rhonchi and wheezing likely secondary to asthma exacerbation along with possible COPD. In patient position she had an empty Advair Diskus reports she is been out for quite some time. Patient was treated with Solu-Medrol duo nebs as well as restarting Advair. She otherwise is doing well today. No further chest pain. Breathing has improved and she is not needing any oxygen. She will be discharged home on a 5-day taper of prednisone. She is to continue Advair and ProAir inhaler. She again was reiterated that she needs to be taking her medications. She will be discharged home with outpatient prescription for PFT as well as stress test. She is to follow-up with Dr. Hand in 7 to 10 days and follow-up with outpatient testing as appropriately. She is return to the ER clinic if concerns should arise sooner. - Patient Instructions Diet: Heart Healthy Diet, Diabetic Diet Activity: No Strenuous Activities Showering/Bathing: May Shower Notify Provider of: Fever, Increased Pain, Swelling and Redness, Drainage, Nausea and/or Vomiting Other/Special Instructions: Stress test and PFT as outpatient. Refrain from alcohol use. - Discharge Plan *PRESCRIPTION DRUG MONITORING PROGRAM REVIEWED*: Not Applicable *COPY OF PRESCRIPTION DRUG MONITORING REPORT IN PATIENT TREVOR: Not Applicable Prescriptions/Med Rec: Fluticasone/Salmeterol [Advair 250-50] 1 puff INH BID #1 diskus predniSONE 40 mg PO WITHBREAKFAST #6 tablet Albuterol Sulfate [Proair Hfa] 1 - 2 inh IH Q4H PRN #1 inh PRN Reason: Shortness Of Breath Home Medications: Home Meds atorvaSTATin [Lipitor] 40 mg PO BEDTIME 90 Days #30 tab 04/18/18 [Rx] Glimepiride [Amaryl] 2 mg PO DAILY 07/22/18 [History] metFORMIN HCl [Metformin HCl] 500 mg PO BID 06/23/19 [History] Lisinopril/Hydrochlorothiazide [Lisinopril-HCTZ 10-12.5 MG] 10 - 12.5 mg PO DAILY #30 tab 10/15/20 [Rx] Albuterol [Proventil Neb Soln] 2.5 mg NEB Q4HRRT PRN #50 cup 11/02/20 [Rx] Aspirin [Aspirin EC] 81 mg PO DAILY 11/08/20 [History] Fluticasone Propion/Salmeterol [Advair 250-50 Diskus] 1 inh IH BID 03/30/21 [History] Montelukast [Singulair] 10 mg PO BEDTIME 03/30/21 [History] Albuterol Sulfate [Proair Hfa] 1 - 2 inh IH Q4H PRN #1 inh 04/01/21 [Rx] Fluticasone/Salmeterol [Advair 250-50] 1 puff INH BID #1 diskus 04/01/21 [Rx] predniSONE 40 mg PO WITHBREAKFAST #6 tablet 04/01/21 [Rx] Oxygen Therapy Mode: Room Air Patient Handouts: Shortness of Breath, Adult, [id number], Albuterol inhalation aerosol, Nonspecific Chest Pain, Adult, [id number], Prednisone tablets, Fluticasone; Salmeterol inhalation aerosol Referrals: Ken Hand MD [Physician] - 04/10/21 9:00 am - Discharge Summary/Plan Comment DC Time >30 min.: No - Patient Data Vitals - Most Recent: Last Vital Signs Temp 96.9 F 04/01/21 08:11 Pulse 60 04/01/21 08:11 Resp 18 04/01/21 08:11 BP 169/91 H 04/01/21 08:11 Pulse Ox 99 04/01/21 08:11 Weight - Most Recent: 111.448 kg I&O - Last 24 hours: Intake & Output 03/31/21 04/01/21 04/01/21 22:59 06:59 14:59 Intake Total 480 850 Output Total 4 4 Balance 476 846 Lab Results - Last 24 hrs: Laboratory Results - last 24 hr 03/31/21 03/31/21 04/01/21 Range/Units 12:03 16:35 06:35 POC Glucose 211 H 204 H 153 H (70-99) mg/dL Med Orders - Current: Current Medications Acetaminophen (Acetaminophen 325 Mg Tab) 650 mg PO Q4H PRN PRN Reason: Pain (Mild 1-3)/fever Last Admin: 04/01/21 07:51 Dose: 650 mg Documented by: Al Hydroxide/Mg Hydroxide (Aluminum Hydroxide/Magnesium Hydroxide/Simethicone Susp 30 Ml Cup) 30 ml PO Q4H PRN PRN Reason: Indigestion Last Admin: 03/31/21 22:44 Dose: 30 ml Documented by: Albuterol (Albuterol 0.083% 2.5 Mg/3 Ml Neb Soln) 2.5 mg NEB Q2H PRN PRN Reason: Shortness Of Breath/wheezing Albuterol/Ipratropium (Albuterol/Ipratropium 3.0-0.5 Mg/3 Ml Neb Soln) 3 ml NEB Q4HRRT [facility] Last Admin: 04/01/21 09:40 Dose: 3 ml Documented by: Aspirin (Aspirin 81 Mg Tab.Ec) 81 mg PO DAILY [facility] Last Admin: 04/01/21 08:26 Dose: 81 mg Documented by: Atorvastatin Calcium (Atorvastatin 40 Mg Tab) 40 mg PO BEDTIME [facility] Last Admin: 03/31/21 20:57 Dose: 40 mg Documented by: Dextrose/Water (50% Dextrose In Water 50 Ml Syringe) 50 ml IVPUSH ASDIRECTED PRN PRN Reason: Hypoglycemia Enoxaparin Sodium (Enoxaparin 40 Mg/0.4 Ml Syringe) 40 mg SUBCUT Q24H [facility] Last Admin: 04/01/21 08:27 Dose: 40 mg Documented by: Folic Acid (Folic Acid 1 Mg Tab) 1 mg PO DAILY [facility] Last Admin: 04/01/21 08:26 Dose: 1 mg Documented by: Glucagon (Glucagon,Human Recombinant 1 Mg Vial) 1 mg IM ASDIRECTED PRN PRN Reason: Hypoglycemia Lisinopril/HCTZ (Lisinopril/Hydrochlorothiazide 10-12.5 Mg Tab) 1 tab PO BEDTIME [facility] Last Admin: 03/31/21 20:56 Dose: 1 tab Documented by: Pantoprazole Sodium 40 mg/ (Sodium Chloride) 10 mls @ 300 mls/hr IV DAILY [facility] Last Admin: 04/01/21 09:10 Dose: Not Given Documented by: Insulin Aspart (Insulin Aspart 100 Units/Ml 3 Ml Pen) 0 unit SUBCUT TIDAC [facility]; Protocol Last Admin: 04/01/21 07:48 Dose: 2 units Documented by: Lorazepam (Lorazepam 2 Mg/Ml Sdv) 1 mg IVPUSH Q4H PRN PRN Reason: CIWAA Montelukast Sodium (Montelukast 10 Mg Tab) 10 mg PO BEDTIME [facility] Last Admin: 03/31/21 20:56 Dose: 10 mg Documented by: Nitroglycerin (Nitroglycerin 0.4 Mg Tab.Sl) 0.4 mg SL Q5M PRN PRN Reason: Chest Pain Last Admin: 03/29/21 21:51 Dose: 0.4 mg Documented by: Ondansetron HCl (Ondansetron 4 Mg/2 Ml Sdv) 4 mg IVPUSH Q4H PRN PRN Reason: Nausea/Vomiting Prednisone (Prednisone 20 Mg Tab) 40 mg PO WITHBREAKFAST [facility] Last Admin: 04/01/21 07:53 Dose: 40 mg Documented by: Fluticasone/Salmeterol (Fluticasone/Salmeterol 250-50 Mcg Inhalation Powder 14/Diskus) 1 puff INH BID [facility] Last Admin: 04/01/21 09:40 Dose: 1 puff Documented by: Sodium Chloride (Sodium Chloride 0.9% 10 Ml Syringe) 10 ml FLUSH ASDIRECTED PRN PRN Reason: Keep Vein Open Last Admin: 03/29/21 19:59 Dose: 10 ml Documented by: Sodium Chloride (Sodium Chloride 0.9% 2.5 Ml Syringe) 2.5 ml FLUSH ASDIRECTED PRN PRN Reason: Keep Vein Open Last Admin: 03/29/21 19:59 Dose: 2.5 ml Documented by: Thiamine HCl (Thiamine 100 Mg Tab) 100 mg PO DAILY [facility] Last Admin: 04/01/21 08:26 Dose: 100 mg Documented by: Discontinued Medications Albuterol/Ipratropium (Albuterol/Ipratropium 3.0-0.5 Mg/3 Ml Neb Soln) 3 ml NEB ONETIME ONE Stop: 03/29/21 23:16 Last Admin: 03/29/21 23:51 Dose: 3 ml Documented by: Albuterol/Ipratropium (Albuterol/Ipratropium 3.0-0.5 Mg/3 Ml Neb Soln) 3 ml NEB Q4HRRT PRN PRN Reason: Shortness Of Breath/wheezing Al Hydroxide/Mg Hydroxide 15 (ml/ Lidocaine HCl 5 ml) 0 ml PO ONETIME ONE Stop: 03/30/21 09:19 Last Admin: 03/30/21 10:04 Dose: 20 each Documented by: Enoxaparin Sodium (Enoxaparin 40 Mg/0.4 Ml Syringe) 40 mg SUBCUT Q24H [facility] Last Admin: 03/30/21 01:51 Dose: Not Given Documented by: Lisinopril/HCTZ (Lisinopril/Hydrochlorothiazide 10-12.5 Mg Tab) 1 tab PO DAILY [facility] Sodium Chloride (Normal Saline) 1,000 mls @ 999 mls/hr IV STAT ONE Stop: 03/29/21 21:02 Last Admin: 03/29/21 20:27 Dose: 999 mls/hr Documented by: Sodium Chloride (Normal Saline) 1,000 mls @ 999 mls/hr IV .Bolus ONE Stop: 03/29/21 22:17 Last Admin: 03/29/21 22:39 Dose: 999 mls/hr Documented by: Lactated Ringer's (Ringers, Lactated) 1,000 mls @ 125 mls/hr IV ASDIRECTED [facility] Last Admin: 03/30/21 02:26 Dose: 125 mls/hr Documented by: Iopamidol (Iopamidol 755 Mg/Ml 500 Ml Multipack Bottle) 100 ml IVPUSH ONETIME STA Stop: 03/29/21 21:38 Last Admin: 03/29/21 22:13 Dose: 75 ml Documented by: Lorazepam (Lorazepam 2 Mg/Ml Sdv) 2 mg IVPUSH ONETIME ONE Stop: 03/29/21 21:41 Last Admin: 03/29/21 22:35 Dose: 2 mg Documented by: Magnesium Oxide (Magnesium Oxide 400 Mg Tab) 800 mg PO ONETIME ONE Stop: 03/30/21 00:41 Last Admin: 03/30/21 02:25 Dose: 800 mg Documented by: Methylprednisolone Sodium Succinate (Methylprednisolone Sodium Succinate 125 Mg/2 Ml Sdv) 125 mg IVPUSH ONETIME ONE Stop: 03/29/21 23:17 Last Admin: 03/29/21 23:51 Dose: 125 mg Documented by: Methylprednisolone Sodium Succinate (Methylprednisolone Sodium Succinate 40 Mg/1 Ml Sdv) 40 mg IVPUSH Q8H [facility] Last Admin: 03/31/21 06:15 Dose: 40 mg Documented by: Morphine Sulfate (Morphine 2 Mg/Ml Syringe) 2 mg IVPUSH ONETIME ONE Stop: 03/29/21 20:03 Last Admin: 03/29/21 20:27 Dose: 2 mg Documented by: Morphine Sulfate (Morphine 2 Mg/Ml Syringe) 1 mg IVPUSH Q4H PRN PRN Reason: Pain (severe 7-10) Stop: 03/31/21 00:42 Last Admin: 03/30/21 13:28 Dose: 1 mg Documented by: Nitroglycerin (Nitroglycerin 0.4 Mg Tab.Sl) Confirm Administered Dose 0.4 mg .ROUTE .STK-MED ONE Stop: 03/29/21 21:50 Last Admin: 03/29/21 21:51 Dose: Not Given Documented by: Ondansetron HCl (Ondansetron 4 Mg/2 Ml Sdv) 4 mg IVPUSH ONETIME ONE Stop: 03/29/21 20:07 Last Admin: 03/29/21 20:27 Dose: 4 mg Documented by:
== END 2021-04-01 11:20 | disposition home or self-care (01) ==
LOC: MW.ED 19:52 → MW.MS 23:59
PROVIDERS: ADMIT Student in an Organized Health Care Education/Training Program; ATTEND Student in an Organized Health Care Education/Training Program
DX: R07.89 Other chest pain (principal); J45.901 Unspecified asthma with (acute) exacerbation; G47.33 Obstructive sleep apnea (adult) (pediatric); E11.9 Type 2 diabetes mellitus without complications; F41.9 Anxiety disorder, unspecified; E66.9 Obesity, unspecified; F10.10 Alcohol abuse, uncomplicated; I25.10 Atherosclerotic heart disease of native coronary artery without angina pectoris; I10 Essential (primary) hypertension; I25.2 Old myocardial infarction; E78.00 Pure hypercholesterolemia, unspecified; F17.210 Nicotine dependence, cigarettes, uncomplicated; Z68.38 Body mass index [BMI] 38.0-38.9, adult; Z20.822 Contact with and (suspected) exposure to COVID-19; Z86.73 Personal history of transient ischemic attack (TIA), and cerebral infarction without residual deficits; Z86.79 Personal history of other diseases of the circulatory system; Z91.19 Patient's noncompliance with other medical treatment and regimen; Z79.82 Long term (current) use of aspirin; Z79.899 Other long term (current) drug therapy
CPT/HCPCS: 36415; 71045; 71045-26; 71275; 71275-26; 80048; 80053; 80061; 80307; 81003; 82947; 83036; 83735; 84443; 84484; 85025; 85379; 93005; 94640; A9270-GY; C9113; J1650; J1815-GY; J2060; J2270; J2405; J2920; J2930; J7030; J7120; J7620-GY; Q9967; U0002

== ENCOUNTER 2021-04-10 13:44 | Emergency (ER) | payer MEDICAID ==
[2021-04-10] MEDS ORDERED: Sodium Chloride 0.9% 2.5 ML Syringe FLUSH PRN (13:45)
[2021-04-10] MEDS ORDERED: Albuterol/Ipratropium 3.0-0.5 MG/3 ML Neb Soln NEB ONE ×2 (13:45→15:01)
[2021-04-10] MEDS ORDERED: Sodium Chloride 0.9% 10 ML Syringe FLUSH PRN (13:45)
[2021-04-10] MEDS ORDERED: methylPREDNISolone Sodium Succinate 125 MG/2 ML SDV IVPUSH ONE (13:45)
[2021-04-10] MEDS ORDERED: Aspirin 81 MG Tab.Chew PO ONE (13:45)
[2021-04-10] MEDS ORDERED: LORazepam 2 MG/ML SDV IVPUSH ONE ×2 (13:48→15:01)
--- NOTE | 2021-04-10 14:08 | EDM.PDOC ---
ED HPI GENERAL MEDICAL PROBLEM - General Chief Complaint: Chest Pain Stated Complaint: CHEST PAIN Time Seen by Provider: 04/10/21 13:44 Source of Information: Reports: Patient History Limitations: Reports: No Limitations - History of Present Illness INITIAL COMMENTS - FREE TEXT/NARRATIVE: 55-year-old female PMHx alcohol abuse, type 2 diabetes, asthma, CVA, [place], HTN and AYLA presents for chest pain. Patient was recently discharged after admission for similar. She states that she woke up around 7 AM and noted a tightness in her diffuse chest radiating into her back. It is associated with shortness of breath. She is found nothing makes pain better or worse. She is scheduled for a stress test. She denies cough. She is a smoker. She feels very anxious and thinks that she might be having a panic attack. chest Pain Score (Numeric/FACES): 9 - Related Data Allergies Allergy/AdvReac Type Severity Reaction Status Date / Time No Known Allergies Allergy Verified 03/30/21 02:20 Home Meds: Home Meds atorvaSTATin [Lipitor] 40 mg PO BEDTIME 90 Days #30 tab 04/18/18 [Rx] Glimepiride [Amaryl] 2 mg PO DAILY 07/22/18 [History] metFORMIN HCl [Metformin HCl] 500 mg PO BID 06/23/19 [History] Lisinopril/Hydrochlorothiazide [Lisinopril-HCTZ 10-12.5 MG] 10 - 12.5 mg PO VENTURA LY #30 tab 10/15/20 [Rx] Albuterol [Proventil Neb Soln] 2.5 mg NEB Q4HRRT PRN #50 cup 11/02/20 [Rx] Aspirin [Aspirin EC] 81 mg PO DAILY 11/08/20 [History] Fluticasone Propion/Salmeterol [Advair 250-50 Diskus] 1 inh IH BID 03/30/21 [History] Montelukast [Singulair] 10 mg PO BEDTIME 03/30/21 [History] Albuterol Sulfate [Proair Hfa] 1 - 2 inh IH Q4H PRN #1 inh 04/01/21 [Rx] Fluticasone/Salmeterol [Advair 250-50] 1 puff INH BID #1 diskus 04/01/21 [Rx] predniSONE 40 mg PO WITHBREAKFAST #6 tablet 04/01/21 [Rx] predniSONE 40 mg PO DAILY 5 Days #10 tab 04/10/21 [Rx] Past Medical History HEENT History: Reports: Other (See Below) Other HEENT History: ear infection Cardiovascular History: Reports: CAD, High Cholesterol, Hypertension, [place] Respiratory History: Reports: Asthma, Sleep Apnea Gastrointestinal History: Reports: GERD Genitourinary History: Reports: None PARK INTERPRETER History: Reports: Other PARK INTERPRETER History: 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 Musculoskeletal History: Reports: Other (See Below) Other Musculoskeletal History: ankle fracture - 2013 Neurological History: Reports: TIA Psychiatric History: Reports: None Endocrine/Metabolic History: Reports: Diabetes, Type II Hematologic History: Reports: None Immunologic History: Reports: None Oncologic (Cancer) History: Reports: None Dermatologic History: Reports: None - Infectious Disease History Infectious Disease History: Reports: Chicken Pox, Measles, Mumps - Past Surgical History HEENT Surgical History: Reports: None Cardiovascular Surgical History: Reports: None Respiratory Surgical History: Reports: None GI Surgical History: Reports: None Female Surgical History: Reports: None Endocrine Surgical History: Reports: None Neurological Surgical History: Reports: None Musculoskeletal Surgical History: Reports: Other (See Below) Other Musculoskeletal Surgeries/Procedures:: broke Left ankle Dermatological Surgical History: Reports: None Social & Family History - Family History Family Medical History: No Pertinent Family History Cardiac: Reports: Hypertension, [place] Respiratory: Reports: Asthma OBGYN: Reports: Musculoskeletal: Reports: Arthritis Neurological: Reports: CVA Endocrine/Metabolic: Reports: Diabetes, type II - Caffeine Use Caffeine Use: Reports: None - Recreational Drug Use Recreational Drug Use: No ED ROS GENERAL - Review of Systems Review Of Systems: Comprehensive ROS is negative, except as noted in HPI. ED EXAM, GENERAL - Physical Exam Exam: See Below Exam Limited By: No Limitations General Appearance: Alert, WD/WN, No Apparent Distress Ears: Hearing Grossly Normal Throat/Mouth: Normal Voice, No Airway Compromise Head: Atraumatic, Normocephalic Neck: Normal Inspection Respiratory/Chest: No Respiratory Distress, No Accessory Muscle Use, Wheezing Cardiovascular: Normal Peripheral Pulses, No Edema, Tachycardia Extremities: Normal Inspection Neurological: Alert, Normal Cognition, Normal Gait Psychiatric: Normal Mood, Anxious Skin Exam: Warm, Dry, Intact, Normal Color #1 Interpretation EKG Date: 04/10/21 Time: 13:45 Rhythm: NSR Rate (Beats/Min): 99 [place]: Normal P-Wave: Present QRS: Normal ST-T: Normal QT: Normal [place]/PQ Interval: 127 Comparison: No Change EKG Interpretation Comments: Right bundle branch block consistent with prior EKGs, no acute ischemic changes identified Course - Vital Signs Last Recorded V/S: Last Vital Signs Temp 97.4 F 04/10/21 16:41 Pulse 94 04/10/21 16:41 Resp 15 04/10/21 16:41 BP 131/71 04/10/21 16:41 Pulse Ox 98 04/10/21 16:41 - Orders/Labs/Meds Orders: Active Orders 24 hr Category Date Time Status Cardiac Monitoring [RC] . DIRECTED Care 04/10/21 13:46 Active EKG Documentation Completion [RC] STAT Care 04/10/21 13:45 Active RT Aerosol Therapy [RC] ASDIRECTED Care 04/10/21 15:02 Active Sodium Chloride 0.9% [Saline Flush] Med 04/10/21 13:45 Active 10 ml FLUSH ASDIRECTED PRN Sodium Chloride 0.9% [Saline Flush] Med 04/10/21 13:45 Active 2.5 ml FLUSH ASDIRECTED PRN Saline Lock Insert [OM.PC] Stat Oth 04/10/21 13:46 Ordered Medication Orders Sodium Chloride (Sodium Chloride 0.9% 10 Ml Syringe) 10 ml FLUSH ASDIRECTED PRN PRN Reason: Keep Vein Open Last Admin: 04/10/21 13:54 Dose: 10 ml Documented by: SHERINE Sodium Chloride (Sodium Chloride 0.9% 2.5 Ml Syringe) 2.5 ml FLUSH ASDIRECTED PRN PRN Reason: Keep Vein Open Last Admin: 04/10/21 13:54 Dose: 2.5 ml Documented by: SHERINE Labs: Laboratory Tests 04/10/21 04/10/21 04/10/21 Range/Units 13:54 13:54 13:54 WBC 12.79 H (4.0-11.0) K/uL RBC 4.10 L (4.30-5.90) M/uL Hgb 11.7 L (12.0-16.0) g/dL Hct 34.6 L (36.0-46.0) % MCV 84.4 (80.0-98.0) fL MCH 28.5 (27.0-32.0) pg MCHC 33.8 (31.0-37.0) g/dL RDW Std Deviation 48.2 (28.0-62.0) fl RDW Coeff of Jeannette 16 H (11.0-15.0) % Plt Count 275 (150-400) K/uL MPV 10.20 (7.40-12.00) fL Neut % (Auto) 73.3 (48.0-80.0) % Lymph % (Auto) 17.7 (16.0-40.0) % Roberts % (Auto) 7.9 (0.0-15.0) % Eos % (Auto) 1.0 (0.0-7.0) % Baso % (Auto) 0.1 (0.0-1.5) % Neut # (Auto) 9.4 H (1.4-5.7) K/uL Lymph # (Auto) 2.3 (0.6-2.4) K/uL Roberts # (Auto) 1.0 H (0.0-0.8) K/uL Eos # (Auto) 0.1 (0.0-0.7) K/uL Baso # (Auto) 0.0 (0.0-0.1) K/uL Nucleated RBC % 0.0 /100WBC Nucleated RBCs # 0 K/uL Sodium 137 (136-145) mmol/L Potassium 3.8 (3.5-5.1) mmol/L Chloride 100 (98-107) mmol/L Carbon Dioxide 22.7 (21.0-32.0) mmol/L BUN 21 H (7.0-18.0) mg/dL Creatinine 1.5 H (0.6-1.0) mg/dL Est Cr Clr Drug Dosing 40.24 mL/min Estimated GFR (MDRD) 43.4 ml/min Glucose 210 H (74-106) mg/dL Calcium 9.3 (8.5-10.1) mg/dL Magnesium 1.7 L (1.8-2.4) mg/dL Total Bilirubin 1.3 H (0.2-1.0) mg/dL AST 18 (15-37) IU/L ALT 30 (14-63) IU/L Alkaline Phosphatase 101 (46-116) U/L Troponin I < 0.050 (0.000-0.056) ng/mL B-Natriuretic Peptide 14 (<100) PG/ML Total Protein 7.6 (6.4-8.2) g/dL Albumin 4.2 (3.4-5.0) g/dL Globulin 3.4 (2.6-4.0) g/dL Albumin/Globulin Ratio 1.2 (0.9-1.6) 04/10/21 Range/Units 16:38 WBC (4.0-11.0) K/uL RBC (4.30-5.90) M/uL Hgb (12.0-16.0) g/dL Hct (36.0-46.0) % MCV (80.0-98.0) fL MCH (27.0-32.0) pg MCHC (31.0-37.0) g/dL RDW Std Deviation (28.0-62.0) fl RDW Coeff of Jeannette (11.0-15.0) % Plt Count (150-400) K/uL MPV (7.40-12.00) fL Neut % (Auto) (48.0-80.0) % Lymph % (Auto) (16.0-40.0) % Roberts % (Auto) (0.0-15.0) % Eos % (Auto) (0.0-7.0) % Baso % (Auto) (0.0-1.5) % Neut # (Auto) (1.4-5.7) K/uL Lymph # (Auto) (0.6-2.4) K/uL Roberts # (Auto) (0.0-0.8) K/uL Eos # (Auto) (0.0-0.7) K/uL Baso # (Auto) (0.0-0.1) K/uL Nucleated RBC % /100WBC Nucleated RBCs # K/uL Sodium (136-145) mmol/L Potassium (3.5-5.1) mmol/L Chloride (98-107) mmol/L Carbon Dioxide (21.0-32.0) mmol/L BUN (7.0-18.0) mg/dL Creatinine (0.6-1.0) mg/dL Est Cr Clr Drug Dosing mL/min Estimated GFR (MDRD) ml/min Glucose (74-106) mg/dL Calcium (8.5-10.1) mg/dL Magnesium (1.8-2.4) mg/dL Total Bilirubin (0.2-1.0) mg/dL AST (15-37) IU/L ALT (14-63) IU/L Alkaline Phosphatase (46-116) U/L Troponin I < 0.050 (0.000-0.056) ng/mL B-Natriuretic Peptide (<100) PG/ML Total Protein (6.4-8.2) g/dL Albumin (3.4-5.0) g/dL Globulin (2.6-4.0) g/dL Albumin/Globulin Ratio (0.9-1.6) Meds: Medications Generic Name Dose Route Start Last Admin Trade Name Domonique PRN Reason Stop Dose Admin Sodium Chloride 10 ml 04/10/21 13:45 04/10/21 13:54 Sodium Chloride 0.9% 10 Ml Syringe FLUSH 10 ml ASDIRECTED PRN Administration Keep Vein Open Sodium Chloride 2.5 ml 04/10/21 13:45 04/10/21 13:54 Sodium Chloride 0.9% 2.5 Ml Syringe FLUSH 2.5 ml ASDIRECTED PRN Administration Keep Vein Open Discontinued Medications Generic Name Dose Route Start Last Admin Trade Name Domonique PRN Reason Stop Dose Admin Albuterol/Ipratropium 3 ml 04/10/21 13:45 04/10/21 13:53 Albuterol/Ipratropium 3.0-0.5 Mg/3 Ml Neb Solleo [facility] 04/10/21 13:46 3 ml ONETIME ONE Administration Albuterol/Ipratropium 3 ml 04/10/21 15:01 04/10/21 15:25 Albuterol/Ipratropium 3.0-0.5 Mg/3 Ml Neb Soln [facility] 04/10/21 15:02 3 ml ONETIME ONE Administration Aspirin 324 mg 04/10/21 13:45 04/10/21 13:53 Aspirin 81 Mg Tab.Chew PO 04/10/21 13:46 324 mg ONETIME ONE Administration Haloperidol Lactate 2.5 mg 04/10/21 15:01 04/10/21 15:25 Haloperidol Lactate 5 Mg/Ml Sdv IM 04/10/21 15:02 2.5 mg ONETIME ONE Administration Lorazepam 1 mg 04/10/21 13:48 04/10/21 13:55 Lorazepam 2 Mg/Ml Sdv IVPUSH 04/10/21 13:49 1 mg ONETIME ONE Administration Lorazepam 1 mg 04/10/21 15:01 04/10/21 15:25 Lorazepam 2 Mg/Ml Sdv IVPUSH 04/10/21 15:02 1 mg ONETIME ONE Administration Methylprednisolone Sodium Succinate 125 mg 04/10/21 13:45 04/10/21 13:53 Methylprednisolone Sodium Succinate 125 Mg/2 Ml Sdv IVPUSH 04/10/21 13:46 125 mg ONETIME ONE Administration - Re-Assessments/Exams Free Text/Narrative Re-Assessment/Exam: 04/10/21 14:10 Patient is noted to have wheezing on exam. Will give DuoNeb and methylprednisolone. Will give Ativan for anxiety. Will give aspirin for less likely ACS. 04/10/21 15:05 Patient's labs are unremarkable. She notes that the Ativan and DuoNeb helped somewhat but she is still feeling short of breath and very anxious. She is still feeling a chest heaviness. I explained that I doubt that her chest heaviness is from ACS and is more likely from COPD given her wheezing. Her repeat pulmonary exam is not greatly improved from original. We will do another DuoNeb treatment. Will give another dose of Ativan. Will trial a small dose of Haldol for anxiety. 04/10/21 17:21 Second troponin remains negative. Will discharge patient with 5 days of prednisone and recommend follow-up with PMD and cardiology. Departure - Departure Time of Disposition: 17:21 Disposition: Home, Self-Care 01 Condition: Good Clinical Impression: COPD exacerbation Chest pain Qualifiers: Chest pain type: unspecified Qualified Code(s): R07.9 - Chest pain, unspecified - Discharge Information Prescriptions: predniSONE 40 mg PO DAILY 5 Days #10 tab Instructions: Nonspecific Chest Pain, Adult Referrals: Ken Hand MD [Primary Care Provider] - Forms: ED Department Discharge Additional Instructions: Your emergency department work-up is largely unremarkable. Your cardiac enzymes are negative meaning you are not having active damage to your heart muscle. However he still need to follow-up with a criminal justice social worker as you had planned earlier for the stress test. Your lungs sound quite wheezy. I wrote you a prescription for some prednisone for 5 days to help with inflammation in your lungs. I know that you have required this in the past so you should discuss th is with your primary care physician to see why you keep getting wheezing. You should also speak with your physician regarding your anxiety has their medications that you can take to help with anxiety. The following information is given to patients seen in the emergency department who are being discharged to home. This information is to outline your options for follow-up care. We provide all patients seen in our emergency department with a follow-up referral. The need for follow-up, as well as the timing and circumstances, are variable depending upon the specifics of your emergency department visit. If you don't have a primary care physician on staff, we will provide you with a referral. We always advise you to contact your personal physician following an emergency department visit to inform them of the circumstance of the visit and for follow-up with them and/or the need for any referrals to a consulting specialist. The emergency department will also refer you to a specialist when appropriate. This referral assures that you have the opportunity for follow-up care with a specialist. All of these measure are taken in an effort to provide you with optimal care, which includes your follow-up. Under all circumstances we always encourage you to contact your private physician who remains a resource for coordinating your care. When calling for follow-up care, please make the office aware that this follow-up is from your recent emergency room visit. If for any reason you are refused follow-up, please contact the [facility] Emergency Department at and asked to speak to the emergency department charge nurse. Please follow up with your primary care physician. If you do not have a primary care physician, see below: [facility] [address] [place] [id number] [facility] [address] [place] [address] [facility] [address] [place] [address] Sepsis Event Note (ED) - Evaluation Sepsis Screening Result: No Definite Risk - Focused Exam Vital Signs: Vital Signs Temp Pulse Resp BP Pulse Ox 04/10/21 16:41 97.4 F 94 15 131/71 98 04/10/21 13:47 95.9 F L 110 H 20 134/88 99 - My Orders Last 24 Hours: My Active Orders 04/10/21 13:45 EKG Documentation Completion [RC] STAT Sodium Chloride 0.9% [Saline Flush] 10 ml FLUSH ASDIRECTED PRN Sodium Chloride 0.9% [Saline Flush] 2.5 ml FLUSH ASDIRECTED PRN 04/10/21 13:46 Cardiac Monitoring [RC] . DIRECTED Saline Lock Insert [OM.PC] Stat 04/10/21 15:02 RT Aerosol Therapy [RC] ASDIRECTED - Assessment/Plan Last 24 Hours: My Active Orders 04/10/21 13:45 EKG Documentation Completion [RC] STAT Sodium Chloride 0.9% [Saline Flush] 10 ml FLUSH ASDIRECTED PRN Sodium Chloride 0.9% [Saline Flush] 2.5 ml FLUSH ASDIRECTED PRN 04/10/21 13:46 Cardiac Monitoring [RC] . DIRECTED Saline Lock Insert [OM.PC] Stat 04/10/21 15:02 RT Aerosol Therapy [RC] ASDIRECTED
[2021-04-10 14:31] LABS: BLOOD UREA NITROGEN,BUN 21 mg/dL (7.0-18.0); CARBON DIOXIDE,CO2 22.7 mmol/L (21.0-32.0); CHLORIDE,CL 100 mmol/L (98-107); GLUCOSE RANDOM 210 mg/dL (74-106); POTASSIUM,K 3.8 mmol/L (3.5-5.1); SODIUM,NA 137 mmol/L (136-145)
--- NOTE | 2021-04-10 14:50 | CR ---
For Patients: As a result of the Century Cures Act, medical imaging exams and procedure reports are released immediately into your electronic medical record. You may view this report before your referring provider. If you have questions, please contact your health care provider. INDICATION: CHEST PAIN TECHNIQUE: Chest 1 view. COMPARISON: 03/29/21 FINDINGS: Cardiovascular and mediastinum: Heart size and vasculature are normal in caliber and appearance. Mediastinum is within normal limits. Lungs and pleural space: Lungs are clear. No sign of infiltrate or mass. No sign of pleural effusion. No pneumothorax. Bones and soft tissues: No significant findings. IMPRESSION: Unremarkable chest. Dictated by: Kaleb Way MD @ 04/10/2021 14:49:46 (Electronically Signed)
[2021-04-10] MEDS ORDERED: Haloperidol Lactate 5 MG/ML SDV IM ONE (15:01)
[2021-04-10 16:42] VITALS: BP 131/71; PULSE 94
== END 2021-04-10 17:39 | disposition home or self-care (01) ==
LOC: MW.ED 13:44
DX: J44.1 Chronic obstructive pulmonary disease with (acute) exacerbation (principal); I25.10 Atherosclerotic heart disease of native coronary artery without angina pectoris; E78.00 Pure hypercholesterolemia, unspecified; I10 Essential (primary) hypertension; I25.2 Old myocardial infarction; E11.9 Type 2 diabetes mellitus without complications; Z79.899 Other long term (current) drug therapy; Z79.84 Long term (current) use of oral hypoglycemic drugs
CPT/HCPCS: 36415; 71045; 80053; 83735; 83880; 84484; 85025; 93005; 96372; 96374; 96375; 96376; 99285; A9270; J1630; J2060; J2930; J7620-GY

== ENCOUNTER 2021-04-27 13:11 | Emergency (ER) | payer MEDICAID ==
--- NOTE | 2021-04-27 13:22 | EDM.PDOC ---
ED HPI GENERAL MEDICAL PROBLEM - General Chief Complaint: Chest Pain Stated Complaint: CHEST PAIN SOB Time Seen by Provider: 04/27/21 13:16 - History of Present Illness INITIAL COMMENTS - FREE TEXT/NARRATIVE: History of present illness: [] The patient complains of chest pain. She feels like a pull in her chest. She moves her hand in and out about the same pace is a heartbeat and pulse away from her chest and says she feels a pull in that direction. She also feels short of breath. Its been going on for 5 or more hours today. It feels like when she was here on the and kept overnight twice 2 nights and when she was here once since then. She has been advised to have pulmonary function tests and a cardiac stress test. Her stress test is 26 of this month. She says her pain is no different than what she had before. She was somewhat better on the steroid taper. She tapered over 6 days and is off that now. Review of systems: As per history of present illness and below otherwise all systems reviewed and negative. Past medical history: As per history of present illness and as reviewed below otherwise noncontributory. Surgical history: As per history of present illness and as reviewed below otherwise n oncontributory. Social history: No reported history of drug or alcohol abuse. Family history: As per history of present illness and as reviewed below otherwise noncontributory. Physical exam: Constitutional - well developed, well-nourished and in no acute distress HEENT - normocephalic, no evidence of trauma - external nose and mouth normal - no mass in neck and no JVD - mucosae moist EYES - full EOM, PERRL, no icterus - no evidence of inflammation, injection, or drainage Respiratory -chest wall is tender anteriorly and reproduces her pain. No respiratory distress, equal bilateral expansion, lungs clear to auscultation and no abnormal lung sounds Cardiovascular - Regular Rhythm with S1 and S2 appreciated and no murmur, gallop or rub. GI - abdomen soft without distension or organomegaly - normal bowel sounds - no guard or rebound Musculoskeletal no gross deformity of long bones or joints - no tenderness, swelling or edema Neurologic - Alert and oriented times four - CN II-XII grossly intact - motor sensory and coordination symmetrically normal Psychiatric - appropriate mood and affect with normal thought content Hematologic - No petechiae or purpura - mucosa appropriate color and sclera not pale - normal nail bed color and refill Integument - no rash or evidence of trauma - normal turgor Diagnostics: [] Therapeutics: [] Impression: [] Plan: [] Definitive disposition and diagnosis as appropriate pending reevaluation and review of above. chest Pain Score (Numeric/FACES): 5 - Related Data Allergies Allergy/AdvReac Type Severity Reaction Status Date / Time No Known Allergies Allergy Verified 04/27/21 13:12 Home Meds: Home Meds atorvaSTATin [Lipitor] 40 mg PO BEDTIME 90 Days #30 tab 04/18/18 [Rx] Glimepiride [Amaryl] 2 mg PO DAILY 07/22/18 [History] metFORMIN HCl [Metformin HCl] 500 mg PO BID 06/23/19 [History] Lisinopril/Hydrochlorothiazide [Lisinopril-HCTZ 10-12.5 MG] 10 - 12.5 mg PO DAILY #30 tab 10/15/20 [Rx] Albuterol [Proventil Neb Soln] 2.5 mg NEB Q4HRRT PRN #50 cup 11/02/20 [Rx] Aspirin [Aspirin EC] 81 mg PO DAILY 11/08/20 [History] Fluticasone Propion/Salmeterol [Advair 250-50 Diskus] 1 inh IH BID 03/30/21 [History] Montelukast [Singulair] 10 mg PO BEDTIME 03/30/21 [History] Albuterol Sulfate [Proair Hfa] 1 - 2 inh IH Q4H PRN #1 inh 04/01/21 [Rx] Fluticasone/Salmeterol [Advair 250-50] 1 puff INH BID #1 diskus 04/01/21 [Rx] predniSONE 40 mg PO DAILY 5 Days #10 tab 04/10/21 [Rx] methylPREDNISolone [Medrol Dose Pack] 4 mg PO DAILY #21 tab 04/27/21 [Rx] Past Medical History HEENT History: Reports: Other (See Below) Other HEENT History: ear infection Cardiovascular History: Reports: CAD, High Cholesterol, Hypertension, [place] Respiratory History: Reports: Asthma, Sleep Apnea Gastrointestinal History: Reports: GERD Genitourinary History: Reports: None [employer] 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 [employer]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 Musculoskeletal History: Reports: Other (See Below) Other Musculoskeletal History: ankle fracture - 2013 Neurological History: Reports: TIA Psychiatric History: Reports: None Endocrine/Metabolic History: Reports: Diabetes, Type II Hematologic History: Reports: None Immunologic History: Reports: None Oncologic (Cancer) History: Reports: None Dermatologic History: Reports: None - Infectious Disease History Infectious Disease History: Reports: Chicken Pox, Measles, Mumps - Past Surgical History HEENT Surgical History: Reports: None Cardiovascular Surgical History: Reports: None Respiratory Surgical History: Reports: None GI Surgical History: Reports: None Female Surgical History: Reports: None Endocrine Surgical History: Reports: None Neurological Surgical History: Reports: None Musculoskeletal Surgical History: Reports: Other (See Below) Other Musculoskeletal Surgeries/Procedures:: broke Left ankle Dermatological Surgical History: Reports: None Social & Family History - Family History Family Medical History: No Pertinent Family History Cardiac: Reports: Hypertension, [place] Respiratory: Reports: Asthma OBGYN: Reports: Musculoskeletal: Reports: Arthritis Neurological: Reports: CVA Endocrine/Metabolic: Reports: Diabetes, type II - Caffeine Use Caffeine Use: Reports: None ED ROS GENERAL - Review of Systems Review Of Systems: Comprehensive ROS is negative, except as noted in HPI. ED EXAM, GENERAL - Physical Exam Exam: See Below Free Text/Narrative:: My physical exam is in the HPI #1 Interpretation EKG Interpretation Comments: EKG done 04/27/2021 at 1309 hrs. sinus tachycardia heart rate 107 WA 138 axis -63 right bundle branch block and left anterior fascicular block. Compared to 03/29/2021 no significant change impression no acute injury Course - Vital Signs Text/Narrative:: This patient with COPD exacerbation with wheezing and bronchospasm and chest wall tenderness most likely has costochondritis related to her difficulty breathing. She has a stress test scheduled. Since has had pain for 5 hours this morning I will try to get her pain relief and if the troponin is negative initially I will feel comfortable letting her go home and continue her appointment but I will put her on a longer course of steroids. Last Recorded V/S: Last Vital Signs Temp 36.2 C 04/27/21 13:14 Pulse 82 04/27/21 14:44 Resp 18 04/27/21 14:44 BP 139/78 04/27/21 14:44 Pulse Ox 97 04/27/21 14:44 - Orders/Labs/Meds Orders: Active Orders 24 hr Category Date Time Status EKG Documentation Completion [RC] AM Care 04/27/21 13:29 Active RT Aerosol Therapy [RC] ASDIRECTED Care 04/27/21 13:48 Active Sodium Chloride 0.9% [Saline Flush] Med 04/27/21 13:29 Active 10 ml FLUSH ASDIRECTED PRN Sodium Chloride 0.9% [Saline Flush] Med 04/27/21 13:29 Active 2.5 ml FLUSH ASDIRECTED PRN Saline Lock Insert [OM.PC] Stat Oth 04/27/21 13:29 Ordered Medication Orders Sodium Chloride (Sodium Chloride 0.9% 10 Ml Syringe) 10 ml FLUSH ASDIRECTED PRN PRN Reason: Keep Vein Open Last Admin: 04/27/21 13:38 Dose: 10 ml Documented by: CARLOS Sodium Chloride (Sodium Chloride 0.9% 2.5 Ml Syringe) 2.5 ml FLUSH ASDIRECTED PRN PRN Reason: Keep Vein Open Last Admin: 04/27/21 13:39 Dose: 2.5 ml Documented by: CARLOS Labs: Laboratory Tests 04/27/21 Range/Units 13:53 Troponin I < 0.050 (0.000-0.056) ng/mL Meds: Medications Generic Name Dose Route Start Last Admin Trade Name Freq PRN Reason Stop Dose Admin Sodium Chloride 10 ml 04/27/21 13:29 04/27/21 13:38 Sodium Chloride 0.9% 10 Ml Syringe FLUSH 10 ml ASDIRECTED PRN Administration Keep Vein Open Sodium Chloride 2.5 ml 04/27/21 13:29 04/27/21 13:39 Sodium Chloride 0.9% 2.5 Ml Syringe FLUSH 2.5 ml ASDIRECTED PRN Administration Keep Vein Open Discontinued Medications Generic Name Dose Route Start Last Admin Trade Name Freq PRN Reason Stop Dose Admin Albuterol/Ipratropium 3 ml 04/27/21 13:29 04/27/21 13:37 Albuterol/Ipratropium 3.0-0.5 Mg/3 Ml Neb Soln NEB 04/27/21 13:30 3 ml ONETIME ONE Administration Albuterol/Ipratropium Confirm 04/27/21 13:45 04/27/21 13:48 Albuterol/Ipratropium 3.0-0.5 Mg/3 Ml Neb Soln Administered 04/27/21 13:46 3 ml Dose Administration 3 ml .ROUTE .STK-MED ONE Albuterol/Ipratropium 3 ml 04/27/21 13:48 04/27/21 13:49 Albuterol/Ipratropium 3.0-0.5 Mg/3 Ml Neb Soln NEB 04/27/21 13:49 Not Given ONETIME ONE Ketorolac Tromethamine 15 mg 04/27/21 13:29 04/27/21 13:37 Ketorolac 15 Mg/Ml Sdv IVPUSH 04/27/21 13:30 15 mg ONETIME ONE Administration Prednisone 60 mg 04/27/21 14:57 Prednisone 20 Mg Tab PO 04/27/21 14:58 ONETIME ONE Departure - Departure Time of Disposition: 15:00 Disposition: Home, Self-Care 01 Condition: Good Clinical Impression: Costochondritis - Discharge Information Prescriptions: methylPREDNISolone [Medrol Dose Pack] 4 mg PO DAILY #21 tab Instructions: Costochondritis, [id number] Forms: ED Department Discharge Additional Instructions: Medicines were sent to your pharmacy. Please get plenty rest. Please keep your appointment for your stress test. [facility] - cardiology [address] [place] [address] [facility] - Primary Care [address] [place] [id number] [address] The following information is given to patients seen in the emergency department who are being discharged to home. This information is to outline your options for follow-up care. We provide all patients seen in our emergency department with a follow-up referral. The need for follow-up, as well as the timing and circumstances, are variable depending upon the specifics of your emergency department visit. If you don't have a primary care physician on staff, we will provide you with a referral. We always advise you to contact your personal physician following an emergency department visit to inform them of the circumstance of the visit and for follow-up with them and/or the need for any referrals to a consulting specialist. The emergency department will also refer you to a specialist when appropriate. This referral assures that you have the opportunity for follow-up care with a specialist. All of these measure are taken in an effort to provide you with optimal care, which includes your follow-up. Under all circumstances we always encourage you to contact your private physician who remains a resource for coordinating your care. When calling for follow-up care, please make the office aware that this follow-up is from your recent emergency room visit. If for any reason you are refused follow-up, please contact the [facility] Emergency Department at and asked to speak to the emergency department charge nurse. Sepsis Event Note (ED) - Evaluation Sepsis Screening Result: No Definite Risk - Focused Exam Vital Signs: Vital Signs Temp Pulse Resp BP Pulse Ox 04/27/21 14:44 82 18 139/78 97 04/27/21 14:13 96 18 161/87 H 97 04/27/21 13:14 36.2 C 104 H 20 170/85 H 98 - My Orders Last 24 Hours: My Active Orders 04/27/21 13:29 EKG Documentation Completion [RC] AM Sodium Chloride 0.9% [Saline Flush] 10 ml FLUSH ASDIRECTED PRN Sodium Chloride 0.9% [Saline Flush] 2.5 ml FLUSH ASDIRECTED PRN Saline Lock Insert [OM.PC] Stat 04/27/21 13:48 RT Aerosol Therapy [RC] ASDIRECTED - Assessment/Plan Last 24 Hours: My Active Orders 04/27/21 13:29 EKG Documentation Completion [RC] AM Sodium Chloride 0.9% [Saline Flush] 10 ml FLUSH ASDIRECTED PRN Sodium Chloride 0.9% [Saline Flush] 2.5 ml FLUSH ASDIRECTED PRN Saline Lock Insert [OM.PC] Stat 04/27/21 13:48 RT Aerosol Therapy [RC] ASDIRECTED
[2021-04-27] MEDS ORDERED: Sodium Chloride 0.9% 10 ML Syringe FLUSH PRN (13:29)
[2021-04-27] MEDS ORDERED: Sodium Chloride 0.9% 2.5 ML Syringe FLUSH PRN (13:29)
[2021-04-27] MEDS ORDERED: Ketorolac 15 MG/ML SDV IVPUSH ONE (13:29)
[2021-04-27] MEDS ORDERED: Albuterol/Ipratropium 3.0-0.5 MG/3 ML Neb Soln NEB ONE ×2 (13:29→13:48)
[2021-04-27] MEDS ORDERED: Albuterol/Ipratropium 3.0-0.5 MG/3 ML Neb Soln ONE (13:45)
--- NOTE | 2021-04-27 14:07 | CR ---
INDICATION: CHEST PAIN TECHNIQUE: Chest 1 view. COMPARISION: 04/10/21 FINDINGS: Cardiovascular and mediastinum: Heart size and vasculature are normal in caliber and appearance. Mediastinum is within normal limits. Lungs and pleural space: Lungs are clear. No sign of infiltrate or mass. No sign of pleural effusion. No pneumothorax. Bones and soft tissues: No significant findings. IMPRESSION: Unremarkable chest. Dictated by: Kaleb Way MD @ 04/27/2021 14:06:42 (Electronically Signed)
[2021-04-27] MEDS ORDERED: predniSONE 20 MG Tab PO ONE (14:57)
[2021-04-27 15:14] VITALS: BP 154/85; PULSE 98
== END 2021-04-27 15:19 | disposition home or self-care (01) ==
LOC: MW.ED 13:11
DX: M94.0 Chondrocostal junction syndrome [Tietze] (principal); I25.10 Atherosclerotic heart disease of native coronary artery without angina pectoris; E78.00 Pure hypercholesterolemia, unspecified; I10 Essential (primary) hypertension; I25.2 Old myocardial infarction; E11.9 Type 2 diabetes mellitus without complications; Z79.82 Long term (current) use of aspirin; Z79.899 Other long term (current) drug therapy; Z86.718 Personal history of other venous thrombosis and embolism
CPT/HCPCS: 36415; 71045; 84484; 93005; 94640; 96374; 99285; A9270; J1885; J7620-GY

== ENCOUNTER 2021-04-27 22:42 | Observation (INO) | payer MEDICAID ==
[2021-04-27] MEDS ORDERED: Nitroglycerin 0.4 MG Tab.SL SL ONE (23:07)
--- NOTE | 2021-04-27 23:07 | EDM.PDOC ---
ED HPI GENERAL MEDICAL PROBLEM - General Chief Complaint: Chest Pain Stated Complaint: CHEST PAIN Time Seen by Provider: 04/27/21 22:55 Source of Information: Reports: Patient History Limitations: Reports: No Limitations - History of Present Illness INITIAL COMMENTS - FREE TEXT/NARRATIVE: Patient is a 55-year-old female presents today for chest pain. Patient was seen here earlier for similar symptoms and was discharged with her chest pain improved. Patient has a chest pain is substernal does not radiate but is made worse with movement. She denies any cough fever chills abdominal pain. Patient denies any falls or other complaints. - Related Data Allergies Allergy/AdvReac Type Severity Reaction Status Date / Time No Known Allergies Allergy Verified 04/27/21 13:12 Home Meds: Home Meds atorvaSTATin [Lipitor] 40 mg PO BEDTIME 90 Days #30 tab 04/18/18 [Rx] Glimepiride [Amaryl] 2 mg PO DAILY 07/22/18 [History] metFORMIN HCl [Metformin HCl] 500 mg PO BID 06/23/19 [History] Lisinopril/Hydrochlorothiazide [Lisinopril-HCTZ 10-12.5 MG] 10 - 12.5 mg PO DAILY #30 tab 10/15/20 [Rx] Albuterol [Proventil Neb Soln] 2.5 mg NEB Q4HRRT PRN #50 cup 11/02/20 [Rx] Aspirin [Aspirin EC] 81 mg PO DAILY 11/08/20 [History] Fluticasone Propion/Salmeterol [Advair 250-50 Diskus] 1 inh IH BID 03/30/21 [History] Montelukast [Singulair] 10 mg PO BEDTIME 03/30/21 [History] Albuterol Sulfate [Proair Hfa] 1 - 2 inh IH Q4H PRN #1 inh 04/01/21 [Rx] Fluticasone/Salmeterol [Advair 250-50] 1 puff INH BID #1 diskus 04/01/21 [Rx] predniSONE 40 mg PO DAILY 5 Days #10 tab 04/10/21 [Rx] methylPREDNISolone [Medrol Dose Pack] 4 mg PO DAILY #21 tab 04/27/21 [Rx] Past Medical History HEENT History: Reports: Other (See Below) Other HEENT History: ear infection Cardiovascular History: Reports: CAD, High Cholesterol, Hypertension, [place] Respiratory History: Reports: Asthma, Sleep Apnea Gastrointestinal History: Reports: GERD Genitourinary History: Reports: None 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 Musculoskeletal History: Reports: Other (See Below) Other Musculoskeletal History: ankle fracture - 2013 Neurological History: Reports: TIA Psychiatric History: Reports: None Endocrine/Metabolic History: Reports: Diabetes, Type II Hematologic History: Reports: None Immunologic History: Reports: None Oncologic (Cancer) History: Reports: None Dermatologic History: Reports: None - Infectious Disease History Infectious Disease History: Reports: Chicken Pox, Measles, Mumps - Past Surgical History HEENT Surgical History: Reports: None Cardiovascular Surgical History: Reports: None Respiratory Surgical History: Reports: None GI Surgical History: Reports: None Female Surgical History: Reports: None Endocrine Surgical History: Reports: None Neurological Surgical History: Reports: None Musculoskeletal Surgical History: Reports: Other (See Below) Other Musculoskeletal Surgeries/Procedures:: broke Left ankle Dermatological Surgical History: Reports: None Social & Family History - Family History Family Medical History: No Pertinent Family History Cardiac: Reports: Hypertension, [place] Respiratory: Reports: Asthma OBGYN: Reports: Musculoskeletal: Reports: Arthritis Neurological: Reports: CVA Endocrine/Metabolic: Reports: Diabetes, type II - Tobacco Use Tobacco Use Status *Q: Never Tobacco User - Caffeine Use Caffeine Use: Reports: Tea - Recreational Drug Use Recreational Drug Use: No ED ROS GENERAL - Review of Systems Review Of Systems: See Below Constitutional: Reports: No Symptoms HEENT: Reports: No Symptoms Respiratory: Reports: No Symptoms Cardiovascular: Reports: Chest Pain Endocrine: Reports: No Symptoms GI/Abdominal: Reports: No Symptoms : Reports: No Symptoms Musculoskeletal: Reports: No Symptoms Skin: Reports: No Symptoms Neurological: Reports: No Symptoms Psychiatric: Reports: No Symptoms Hematologic/Lymphatic: Reports: No Symptoms Immunologic: Reports: No Symptoms ED EXAM, GENERAL - Physical Exam Exam: See Below Exam Limited By: No Limitations General Appearance: Alert, WD/WN, No Apparent Distress Eye Exam: Bilateral Eye: EOMI, PERRL Head: Atraumatic Respiratory/Chest: No Respiratory Distress, Lungs Clear, Normal Breath Sounds Cardiovascular: Normal Peripheral Pulses, Regular Rate, Rhythm GI/Abdominal: Normal Bowel Sounds, Soft, Non-Tender Neurological: Alert, Oriented, Normal Cognition, Normal Gait #1 Interpretation EKG Date: 04/27/21 Time: 22:48 Rhythm: NSR Rate (Beats/Min): 91 ST-T: Normal Course - Vital Signs Last Recorded V/S: Last Vital Signs Temp 97.9 F 04/27/21 22:43 Pulse 90 04/27/21 22:43 Resp 20 04/27/21 22:43 BP 178/97 H 04/27/21 23:29 Pulse Ox 99 04/27/21 22:43 - Orders/Labs/Meds Orders: Active Orders 24 hr Category Date Time Status Patient Status [ADT] Routine ADT 04/28/21 01:06 Ordered EKG Documentation Completion [RC] STAT Care 04/27/21 22:48 Active Labs: Laboratory Tests 04/27/21 04/28/21 04/28/21 Range/Units 23:15 00:30 00:30 WBC 11.37 H (4.0-11.0) K/uL RBC 3.56 L (4.30-5.90) M/uL Hgb 10.2 L (12.0-16.0) g/dL Hct 30.3 L (36.0-46.0) % MCV 85.1 (80.0-98.0) fL MCH 28.7 (27.0-32.0) pg MCHC 33.7 (31.0-37.0) g/dL RDW Std Deviation 49.3 (28.0-62.0) fl RDW Coeff of Jeannette 16 H (11.0-15.0) % Plt Count 249 (150-400) K/uL MPV 10.20 (7.40-12.00) fL Neut % (Auto) 93.1 H (48.0-80.0) % Lymph % (Auto) 4.6 L (16.0-40.0) % [place] % (Auto) 2.2 (0.0-15.0) % Eos % (Auto) 0.0 (0.0-7.0) % Baso % (Auto) 0.1 (0.0-1.5) % Neut # (Auto) 10.6 H (1.4-5.7) K/uL Lymph # (Auto) 0.5 L (0.6-2.4) K/uL [place] # (Auto) 0.3 (0.0-0.8) K/uL Eos # (Auto) 0.0 (0.0-0.7) K/uL Baso # (Auto) 0.0 (0.0-0.1) K/uL Sodium 136 (136-145) mmol/L Potassium 4.0 (3.5-5.1) mmol/L Chloride 99 (98-107) mmol/L Carbon Dioxide 23.4 (21.0-32.0) mmol/L BUN 24 H (7.0-18.0) mg/dL Creatinine 1.7 H (0.6-1.0) mg/dL Est Cr Clr Drug Dosing 35.51 mL/min Estimated GFR (MDRD) 37.5 ml/min Glucose 253 H (74-106) mg/dL Calcium 9.0 (8.5-10.1) mg/dL Total Bilirubin 1.1 H (0.2-1.0) mg/dL AST 21 (15-37) IU/L ALT 19 (14-63) IU/L Alkaline Phosphatase 88 (46-116) U/L Creatine Kinase 155 (26-308) U/L Troponin I < 0.050 (0.000-0.056) ng/mL Total Protein 7.2 (6.4-8.2) g/dL Albumin 3.9 (3.4-5.0) g/dL Globulin 3.3 (2.6-4.0) g/dL Albumin/Globulin Ratio 1.2 (0.9-1.6) SARS-CoV-2 RNA ([place]) NEGATIVE (NEGATIVE) Meds: Medications Discontinued Medications Generic Name Dose Route Start Last Admin Trade Name Freq PRN Reason Stop Dose Admin Ketorolac Tromethamine 30 mg 04/28/21 00:28 04/28/21 00:36 Ketorolac 30 Mg/Ml Sdv IVPUSH 04/28/21 00:29 30 mg ONETIME ONE Administration Nitroglycerin 0.4 mg 04/27/21 23:07 04/27/21 23:29 Nitroglycerin 0.4 Mg Tab.Sl SL 04/27/21 23:08 0.4 mg ONETIME ONE Administration - Re-Assessments/Exams Free Text/Narrative Re-Assessment/Exam: 04/28/21 01:07 Patient will be admitted to the hospital for chest pain have tropes were trended. Departure - Departure Time of Disposition: 01:07 Disposition: Refer to Observation Condition: Good Clinical Impression: Chest pain Qualifiers: Chest pain type: unspecified Qualified Code(s): R07.9 - Chest pain, unspecified Instructions: Nonspecific Chest Pain, Adult Forms: ED Department Discharge Sepsis Event Note (ED) - Evaluation Sepsis Screening Result: No Definite Risk - Focused Exam Vital Signs: Vital Signs Temp Pulse Resp BP BP Pulse Ox 04/27/21 23:29 178/97 H 04/27/21 22:43 97.9 F 90 20 184/110 H 99 - My Orders Last 24 Hours: My Active Orders 04/27/21 22:48 EKG Documentation Completion [RC] STAT 04/28/21 01:06 Patient Status [ADT] Routine - Assessment/Plan Last 24 Hours: My Active Orders 04/27/21 22:48 EKG Documentation Completion [RC] STAT 04/28/21 01:06 Patient Status [ADT] Routine Plan: Patient is a 55-year-old female who presents today for chest pain. Patient was seen here earlier for similar complaints. Patient heart score 4. Will obtain labs EKG x-ray and reassess patient.
[2021-04-28] MEDS ORDERED: Ketorolac 30 MG/ML SDV IVPUSH ONE (00:28)
[2021-04-28 01:01] LABS: BLOOD UREA NITROGEN,BUN 24 mg/dL (7.0-18.0); CARBON DIOXIDE,CO2 23.4 mmol/L (21.0-32.0); CHLORIDE,CL 99 mmol/L (98-107); GLUCOSE RANDOM 253 mg/dL (74-106); SODIUM,NA 136 mmol/L (136-145)
[2021-04-28] MEDS ORDERED: Lisinopril 10 MG Tab PO ONE (02:23)
[2021-04-28] MEDS ORDERED: Glucagon,Human Recombinant 1 MG Vial IM PRN (02:25)
[2021-04-28] MEDS ORDERED: 50% Dextrose in Water 50 ML Syringe IVPUSH PRN (02:25)
[2021-04-28] MEDS: Albuterol/Ipratropium 3.0-0.5 MG/3 ML Neb Soln NEB PRN ×4 (02:51→17:24)
[2021-04-28] MEDS: Morphine 2 MG/ML SYRINGE IVPUSH PRN ×5 (02:52→21:44)
[2021-04-28] MEDS: Insulin Aspart 100 Units/ML 3 ML Pen SUBCUT SCH ×3 (07:32→17:03)
--- NOTE | 2021-04-28 08:08 | PCM.HP.2 ---
H&P History of Present Illness - General Date of Service: 04/28/21 Admit Problem/Dx: Admission Diagnosis/Problem Admission Diagnosis/Problem Chest pain in adult - History of Present Illness Initial Comments - Free Text/Narative: 55-year-old female with past medical history of hypertension, [place], CVA, HLD, DM2, alcohol abuse, asthma with questionable COPD, AYLA presented to the ER complaining of nonradiating chest pain. Patient was seen in the ER twice today. She was sent home after negative troponins and pain resolved with ketorolac for costochondritis. She came back in the evening with continued chest pain. Patient states 5 hours before presenting, she was laying on her recliner when she began to experience progressing pain that started in her mid back and radiated anteriorly into her chest. She denies left arm or left neck pain. She also complains of epigastric pain likely related to GERD. Discomfort is worse when laying flat and improves with leaning forward. She complains of reflux. She complains of dyspnea on exertion. She denies palpitations, headaches, weakness, nausea, vomiting, diarrhea or bloody stools. She was admitted on 03/29/2021 with similar symptoms and treated for asthma exacerbation and atypical chest pain which resolved with GI cocktail. She was discharged on a steroid taper. She was scheduled for a PFT and stress test. Stress test scheduled for 05/04/2021. Patient has a history of medication noncompliance and she states she has not been taking her inhalers. She also has a history of alcohol abuse but states that she is currently drinking a sixpack of beer per week. She is anxious but denies tremors. ER course: First visit her exam was positive for tender anterior chest wall that was reproducible to her pain. EKG sinus tach he, or BB and left anterior fascicular block, no change compared to 03/29/2021. CXR unremarkable. Assessment was costochondritis with chest wall tenderness. Troponins negative at 1353. Discharged on steroid taper. Second visit: Presents with continued chest pain. Substernal, nonradiating but worse with movement. No fever or chills. No palpitations. EKG NSR. Temperature 97.9. Pulse 90. BP 178/97. 99% on room air. WBC 11.37. Hgb 10.2. MCV 85.1. Platelets 249. Neutrophil 93.1. Sodium 136. Potassium 4.0. BUN 24. Creatinine 1.7. Blood glucose 253. Total bilirubin 1.1. AST 21. ALT 19. Alk phos 88. Creatine kinase 155. Troponins negative. SARS-CoV-2 negative. Patient received ketorolac 30 mg. Nitroglycerin 0.4mg SL. Admitted for trending troponins. Past medical history: HTN, DM 2, asthma, question COPD, CAD, [place] 1 year ago, GERD, TIA, anxiety, HLD, AYLA, alcohol abuse, medication noncompliance. Medications: Atorvastatin 40 mg daily. Glimepiride 2 mg daily. Metformin 500 mg twice bid. Lisinopril/HCTZ 10-12.5 mg daily. Proventil in as needed. Proair. Advair. Aspirin 81 mg daily. Montelukast 10 mg daily. Allergies: No known drug allergies Surgical history: Patient denies any surgeries. Family history: Significant for [place], HTN and DM 2. Social history: Patient states she lives alone without family. No family in town. Smokes 1 pack of cigarettes every 3 days. Drinks a sixpack of beer each week. Denies drug use. Abdomen Pain Score (Numeric/FACES): 6 Chest Pain Score (Numeric/FACES): 6 - Related Data Allergies/Adverse Reactions: Allergies Allergy/AdvReac Type Severity Reaction Status Date / Time No Known Allergies Allergy Verified 04/28/21 01:55 Home Medications: Home Meds atorvaSTATin [Lipitor] 40 mg PO BEDTIME 90 Days #30 tab 04/18/18 [Rx] Glimepiride [Amaryl] 2 mg PO DAILY 07/22/18 [History] metFORMIN HCl [Metformin HCl] 500 mg PO BID 06/23/19 [History] Lisinopril/Hydrochlorothiazide [Lisinopril-HCTZ 10-12.5 MG] 10 - 12.5 mg PO DAILY #30 tab 10/15/20 [Rx] Albuterol [Proventil Neb Soln] 2.5 mg NEB Q4HRRT PRN #50 cup 11/02/20 [Rx] Aspirin [Aspirin EC] 81 mg PO DAILY 11/08/20 [History] Fluticasone Propion/Salmeterol [Advair 250-50 Diskus] 1 inh IH BID 03/30/21 [History] Montelukast [Singulair] 10 mg PO BEDTIME 03/30/21 [History] Albuterol Sulfate [Proair Hfa] 1 - 2 inh IH Q4H PRN #1 inh 04/01/21 [Rx] Fluticasone/Salmeterol [Advair 250-50] 1 puff INH BID #1 diskus 04/01/21 [Rx] predniSONE 40 mg PO DAILY 5 Days #10 tab 04/10/21 [Rx] Past Medical History HEENT History: Reports: Other (See Below) Other HEENT History: ear infection Cardiovascular History: Reports: CAD, High Cholesterol, Hypertension, [place] Respiratory History: Reports: Asthma, Sleep Apnea Gastrointestinal History: Reports: GERD Genitourinary History: Reports: None [employer] History: Reports: Other OB/BYN History: 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 Musculoskeletal History: Reports: Other (See Below) Other Musculoskeletal History: ankle fracture - 2013 Neurological History: Reports: TIA Psychiatric History: Reports: None Endocrine/Metabolic History: Reports: Diabetes, Type II Hematologic History: Reports: None Immunologic History: Reports: None Oncologic (Cancer) History: Reports: None Dermatologic History: Reports: None - Infectious Disease History Infectious Disease History: Reports: Chicken Pox, Measles, Mumps - Past Surgical History HEENT Surgical History: Reports: None Cardiovascular Surgical History: Reports: None Respiratory Surgical History: Reports: None GI Surgical History: Reports: None Female Surgical History: Reports: None Endocrine Surgical History: Reports: None Neurological Surgical History: Reports: None Musculoskeletal Surgical History: Reports: Other (See Below) Other Musculoskeletal Surgeries/Procedures:: broke Left ankle Dermatological Surgical History: Reports: None Social & Family History - Family History Family Medical History: No Pertinent Family History Cardiac: Reports: Hypertension, [place] Respiratory: Reports: Asthma OBGYN: Reports: Musculoskeletal: Reports: Arthritis Neurological: Reports: CVA Endocrine/Metabolic: Reports: Diabetes, type II - Tobacco Use Tobacco Use Status *Q: Never Tobacco User - Caffeine Use Caffeine Use: Reports: Tea - Recreational Drug Use Recreational Drug Use: No H&P Review of Systems - Review of Systems: Review Of Systems: Comprehensive ROS is negative, except as noted in HPI. Exam - Exam Exam: See Below - Vital Signs Vital Signs: Last Vital Signs Temp 97.3 F 04/28/21 07:23 Pulse 74 04/28/21 07:23 Resp 15 04/28/21 07:23 BP 136/79 04/28/21 07:23 Pulse Ox 98 04/28/21 07:23 Weight: 239 lb 6 oz - Exam General: Alert, Oriented, Cooperative (Appears anxious. No tremors.) HEENT: Conjunctiva Clear, EOMI, Mucosa Moist & [place] Neck: Supple. No: JVD Lungs: Normal Respiratory Effort, Crackles (Left base crackles.), Wheezing (Diffuse bilateral wheezing.) Cardiovascular: Regular Rate, Regular Rhythm GI/Abdominal Exam: Normal Bowel Sounds, Soft, Tender. No: Distended, Guarding, Rigid, Rebound Back Exam: Normal Inspection. No: CVA Tenderness (L), CVA Tenderness (R) Extremities: No Pedal Edema. No: Francisco Jvaier's Sign, Leg Pain Peripheral Pulses: 2+: Dorsalis Pedis (L), Dorsalis Pedis (R) Skin: Warm, Dry, Intact Neurological: Normal Speech Neuro Extensive - Mental Status: Alert, Oriented x3, Nl Response to Commands Psychiatric: Alert, Anxious - Patient Data Lab Results Last 24 hrs: Laboratory Results - last 24 hr 04/27/21 04/28/21 04/28/21 Range/Units 23:15 00:30 00:30 WBC 11.37 H (4.0-11.0) K/uL RBC 3.56 L (4.30-5.90) M/uL Hgb 10.2 L (12.0-16.0) g/dL Hct 30.3 L (36.0-46.0) % MCV 85.1 (80.0-98.0) fL MCH 28.7 (27.0-32.0) pg MCHC 33.7 (31.0-37.0) g/dL RDW Std Deviation 49.3 (28.0-62.0) fl RDW Coeff of Jeannette 16 H (11.0-15.0) % Plt Count 249 (150-400) K/uL MPV 10.20 (7.40-12.00) fL Neut % (Auto) 93.1 H (48.0-80.0) % Lymph % (Auto) 4.6 L (16.0-40.0) % Cedar % (Auto) 2.2 (0.0-15.0) % Eos % (Auto) 0.0 (0.0-7.0) % Baso % (Auto) 0.1 (0.0-1.5) % Neut # (Auto) 10.6 H (1.4-5.7) K/uL Lymph # (Auto) 0.5 L (0.6-2.4) K/uL Cedar # (Auto) 0.3 (0.0-0.8) K/uL Eos # (Auto) 0.0 (0.0-0.7) K/uL Baso # (Auto) 0.0 (0.0-0.1) K/uL Sodium 136 (136-145) mmol/L Potassium 4.0 (3.5-5.1) mmol/L Chloride 99 (98-107) mmol/L Carbon Dioxide 23.4 (21.0-32.0) mmol/L BUN 24 H (7.0-18.0) mg/dL Creatinine 1.7 H (0.6-1.0) mg/dL Est Cr Clr Drug Dosing 35.51 mL/min Estimated GFR (MDRD) 37.5 ml/min Glucose 253 H (74-106) mg/dL POC Glucose (70-99) mg/dL Calcium 9.0 (8.5-10.1) mg/dL Phosphorus (2.6-4.7) mg/dL Magnesium (1.8-2.4) mg/dL Total Bilirubin 1.1 H (0.2-1.0) mg/dL AST 21 (15-37) IU/L ALT 19 (14-63) IU/L Alkaline Phosphatase 88 (46-116) U/L Creatine Kinase 155 (26-308) U/L Troponin I < 0.050 (0.000-0.056) ng/mL Total Protein 7.2 (6.4-8.2) g/dL Albumin 3.9 (3.4-5.0) g/dL Globulin 3.3 (2.6-4.0) g/dL Albumin/Globulin Ratio 1.2 (0.9-1.6) SARS-CoV-2 RNA ([place]) NEGATIVE (NEGATIVE) 04/28/21 04/28/21 04/28/21 Range/Units 06:09 06:35 06:35 WBC (4.0-11.0) K/uL RBC (4.30-5.90) M/uL Hgb (12.0-16.0) g/dL Hct (36.0-46.0) % MCV (80.0-98.0) fL MCH (27.0-32.0) pg MCHC (31.0-37.0) g/dL RDW Std Deviation (28.0-62.0) fl RDW Coeff of Jeannette (11.0-15.0) % Plt Count (150-400) K/uL MPV (7.40-12.00) fL Neut % (Auto) (48.0-80.0) % Lymph % (Auto) (16.0-40.0) % Cedar % (Auto) (0.0-15.0) % Eos % (Auto) (0.0-7.0) % Baso % (Auto) (0.0-1.5) % Neut # (Auto) (1.4-5.7) K/uL Lymph # (Auto) (0.6-2.4) K/uL Cedar # (Auto) (0.0-0.8) K/uL Eos # (Auto) (0.0-0.7) K/uL Baso # (Auto) (0.0-0.1) K/uL Sodium (136-145) mmol/L Potassium (3.5-5.1) mmol/L Chloride (98-107) mmol/L Carbon Dioxide (21.0-32.0) mmol/L BUN (7.0-18.0) mg/dL Creatinine (0.6-1.0) mg/dL Est Cr Clr Drug Dosing mL/min Estimated GFR (MDRD) ml/min Glucose (74-106) mg/dL POC Glucose 238 H (70-99) mg/dL Calcium (8.5-10.1) mg/dL Phosphorus 3.1 (2.6-4.7) mg/dL Magnesium 2.0 (1.8-2.4) mg/dL Total Bilirubin (0.2-1.0) mg/dL AST (15-37) IU/L ALT (14-63) IU/L Alkaline Phosphatase (46-116) U/L Creatine Kinase (26-308) U/L Troponin I < 0.050 (0.000-0.056) ng/mL Total Protein (6.4-8.2) g/dL Albumin (3.4-5.0) g/dL Globulin (2.6-4.0) g/dL Albumin/Globulin Ratio (0.9-1.6) SARS-CoV-2 RNA ([place]) (NEGATIVE) Result Diagrams: 04/28/21 00:30 04/28/21 00:30 Sepsis Event Note - Evaluation Sepsis Screening Result: No Definite Risk - Focused Exam Vital Signs: Vital Signs Temp Pulse Resp BP BP Pulse Ox 04/28/21 07:23 97.3 F 74 15 136/79 98 04/28/21 05:00 97.2 F 83 18 166/69 H 92 L 04/28/21 02:51 187/86 H 04/28/21 02:25 97.2 F 86 20 187/86 H 98 04/28/21 02:00 98 F 97 20 137/93 H 96 04/27/21 23:29 178/97 H 04/27/21 22:43 97.9 F 90 20 184/110 H 99 - Problem List (1) Chest pain SNOMED Code(s): 58801176 ICD Code: R07.9 - CHEST PAIN, UNSPECIFIED Status: Acute Current Visit: Yes Qualifiers: Chest pain type: unspecified Qualified Code(s): R07.9 - Chest pain, unspecified (2) Asthma exacerbation SNOMED Code(s): 696054460 ICD Code: J45.901 - UNSPECIFIED ASTHMA WITH (ACUTE) EXACERBATION Status: Acute Current Visit: No (3) Diabetes mellitus type 2 in obese SNOMED Code(s): 55693204 ICD Code: E11.9 - TYPE 2 DIABETES MELLITUS WITHOUT COMPLICATIONS; E66.9 - OBESITY, UNSPECIFIED Status: Chronic Priority: High Current Visit: No Problem Details: A1C 5.3% (4) History of hypertension SNOMED Code(s): 018626851 ICD Code: Z86.79 - PERSONAL HISTORY OF OTHER DISEASES OF THE CIRCULATORY SYSTEM Status: Chronic Current Visit: No Problem List Initiated/Reviewed/Updated: Yes Orders Last 24hrs: Active Orders 24 hr Category Date Time Status Patient Status [ADT] Routine ADT 04/28/21 01:06 Active Blood Glucose Check, Bedside [RC] TIDAC Care 04/28/21 05:30 Active RT Aerosol Therapy [RC] ASDIRECTED Care 04/28/21 02:31 Active Telemetry Monitoring [Cardiac Monitoring] [RC] Q8H Care 04/28/21 01:51 Active ADA Diabetic [[employer] [place] [employer] Diet] [DIET Diet 04/28/21 Breakfast Active ] TROPONIN I [CHEM] Q6H Lab 04/28/21 12:30 Ordered Albuterol/Ipratropium [DuoNeb 3.0-0.5 MG/3 ML] Med 04/28/21 02:30 Active 3 ml NEB Q4HRRT PRN Dextrose 50% in Water Med 04/28/21 02:25 Active 50 ml IVPUSH ASDIRECTED PRN Glucagon,Human Recombinant [GlucaGen] Med 04/28/21 02:25 Active 1 mg IM ASDIRECTED PRN Insulin Aspart [NovoLOG] Med 04/28/21 07:30 Active See Protocol SUBCUT TIDAC Morphine Med 04/28/21 02:25 Active 2 mg IVPUSH Q3H PRN Medication Orders Albuterol/Ipratropium (Albuterol/Ipratropium 3.0-0.5 Mg/3 Ml Neb Soln) 3 ml NEB Q4HRRT PRN PRN Reason: Wheezing Last Admin: 04/28/21 07:58 Dose: 3 ml Documented by: Admin: 04/28/21 02:51 Dose: 3 ml Documented by: RAYMOND Dextrose/Water (50% Dextrose In Water 50 Ml Syringe) 50 ml IVPUSH ASDIRECTED PRN PRN Reason: Hypoglycemia Glucagon (Glucagon,Human Recombinant 1 Mg Vial) 1 mg IM ASDIRECTED PRN PRN Reason: Hypoglycemia Insulin Aspart (Insulin Aspart 100 Units/Ml 3 Ml Pen) [facility] Protocol Last Admin: 04/28/21 07:32 Dose: 2 units Documented by: YOLI Morphine Sulfate (Morphine 2 Mg/Ml Syringe) 2 mg IVPUSH Q3H PRN PRN Reason: Pain Last Admin: 04/28/21 06:06 Dose: 2 mg Documented by: Admin: 04/28/21 02:52 Dose: 2 mg Documented by: RAYMOND Assessment/Plan Comment:: 55-year-old female with a recent admission for asthma exacerbation presents with similar symptoms. She is being admitted for ACS rule out and asthma exacerbation. Troponins negative. EKG unremarkable compared to last visit. Patient chest and abdominal discomfort is likely related to GERD and gastritis. She has been medication noncompliant and claims she has decreased drinking to 6 beers a week. She did have diffuse wheezing throughout on exam. Chest x-ray was unremarkable. Telemetry monitoring. Trend troponins. IV Protonix. GI cocktail. DuoNebs every 4 hours and albuterol inhaler as needed. Home Advair and montelukast restarted. Incentive spirometry. Start methylprednisolone 40 mg every 8 hours. We will start CIWA protocol since patient has a history of alcohol abuse. Thiamine and folic acid. Diabetic diet. Sliding scale. Continue home medications for hypertension. CODE STATUS: Full code
[2021-04-28] MEDS ORDERED: LORazepam 1 MG Tab PO PRN (08:24)
[2021-04-28] MEDS ORDERED: Alum Hydrox/Mag Hydrox/Simeth 15 ML, Lidocaine 2% 5 ML PO ONE ×2 (08:31)
[2021-04-28] MEDS: Pantoprazole 40 MG in Sodium Chloride 0.9% 10 ML IV SCH ×2 (08:31→09:27)
[2021-04-28] MEDS ORDERED: ALBUTEROL 2.5 MG/0.5 ML NEB PRN (08:36)
[2021-04-28] MEDS: Fluticasone/Salmeterol 250-50 MCG Inhalation Powder 14/Diskus INH SCH ×2 (09:06→21:34)
[2021-04-28] MEDS ORDERED: Albuterol 8 GM Inhaler INH PRN (09:10)
[2021-04-28] MEDS: methylPREDNISolone Sodium Succinate 40 MG/1 ML SDV IVPUSH SCH ×2 (09:59→17:05)
[2021-04-28] MEDS: Aspirin 81 MG Tab.EC PO SCH (09:59)
[2021-04-28] MEDS: Lisinopril/Hydrochlorothiazide 10-12.5 MG Tab PO SCH (09:59)
[2021-04-28] MEDS ORDERED: Albuterol/Ipratropium 3.0-0.5 MG/3 ML Neb Soln NEB SCH (10:00)
[2021-04-28] MEDS ORDERED: LORazepam 2 MG/ML SDV IVPUSH ONE (16:08)
[2021-04-28] MEDS: atorvaSTATin 40 MG Tab PO SCH (21:32)
[2021-04-28] MEDS: Montelukast 10 MG Tab PO SCH (21:33)
[2021-04-28] MEDS: Thiamine 100 MG Tab PO SCH (21:33)
[2021-04-28] MEDS: Folic Acid 1 MG Tab PO SCH (21:33)
[2021-04-29] MEDS: methylPREDNISolone Sodium Succinate 40 MG/1 ML SDV IVPUSH SCH ×3 (01:19→16:59)
[2021-04-29] MEDS: Albuterol/Ipratropium 3.0-0.5 MG/3 ML Neb Soln NEB PRN ×2 (05:08→20:47)
[2021-04-29] MEDS: Morphine 2 MG/ML SYRINGE IVPUSH PRN (05:44)
[2021-04-29 06:19] LABS: CARBON DIOXIDE,CO2 25.4 mmol/L (21.0-32.0); POTASSIUM,K 4.5 mmol/L (3.5-5.1)
[2021-04-29] MEDS: Insulin Aspart 100 Units/ML 3 ML Pen SUBCUT SCH ×3 (07:59→16:56)
[2021-04-29] MEDS: Fluticasone/Salmeterol 250-50 MCG Inhalation Powder 14/Diskus INH SCH ×2 (08:12→20:44)
[2021-04-29] MEDS: Lisinopril/Hydrochlorothiazide 10-12.5 MG Tab PO SCH (08:12)
[2021-04-29] MEDS: Pantoprazole 40 MG in Sodium Chloride 0.9% 10 ML IV SCH (08:12)
[2021-04-29] MEDS: Aspirin 81 MG Tab.EC PO SCH (08:12)
--- NOTE | 2021-04-29 11:13 | PCM.PN ---
- General Info Date of Service: 04/29/21 Admission Dx/Problem (Free Text): Admission Diagnosis/Problem Admission Diagnosis/Problem Chest pain in adult Subjective Update: 55-year-old female admitted for acute asthma exacerbation on Solu-Medrol 40 mg and DuoNebs as needed and is responding well. Patient states that she feels better this morning except for some mild abdominal discomfort. She is tolerating diet. No nausea or vomiting. She denies feeling anxious today. She is coughing up clear mucus today. - Review of Systems General: Reports: No Symptoms HEENT: Reports: No Symptoms Pulmonary: Reports: Cough, Sputum Cardiovascular: Reports: No Symptoms Gastrointestinal: Reports: Abdominal Pain Genitourinary: Reports: No Symptoms Musculoskeletal: Reports: No Symptoms Skin: Reports: No Symptoms Neurological: Reports: No Symptoms - Patient Data Vitals - Most Recent: Last Vital Signs Temp 97.3 F 04/29/21 08:01 Pulse 70 04/29/21 08:01 Resp 16 04/29/21 08:01 BP 176/83 H 04/29/21 08:01 Pulse Ox 97 04/29/21 08:01 Weight - Most Recent: 239 lb 6 oz I&O - Last 24 Hours: Intake & Output 04/28/21 04/29/21 04/29/21 22:59 06:59 14:59 Intake Total 1320 950 Output Total 800 1100 Balance 520 -150 Lab Results Last 24 Hours: Laboratory Results - last 24 hr 04/28/21 04/28/21 04/28/21 Range/Units 11:42 11:50 12:50 WBC (4.0-11.0) K/uL RBC (4.30-5.90) M/uL Hgb (12.0-16.0) g/dL Hct (36.0-46.0) % MCV (80.0-98.0) fL MCH (27.0-32.0) pg MCHC (31.0-37.0) g/dL RDW Std Deviation (28.0-62.0) fl RDW Coeff of Jeannette (11.0-15.0) % Plt Count (150-400) K/uL MPV (7.40-12.00) fL Neut % (Auto) (48.0-80.0) % Lymph % (Auto) (16.0-40.0) % [place] % (Auto) (0.0-15.0) % Eos % (Auto) (0.0-7.0) % Baso % (Auto) (0.0-1.5) % Neut # (Auto) (1.4-5.7) K/uL Lymph # (Auto) (0.6-2.4) K/uL [place] # (Auto) (0.0-0.8) K/uL Eos # (Auto) (0.0-0.7) K/uL Baso # (Auto) (0.0-0.1) K/uL Nucleated RBC % /100WBC Nucleated RBCs # K/uL Sodium (136-145) mmol/L Potassium (3.5-5.1) mmol/L Chloride (98-107) mmol/L Carbon Dioxide (21.0-32.0) mmol/L BUN (7.0-18.0) mg/dL Creatinine (0.6-1.0) mg/dL Est Cr Clr Drug Dosing mL/min Estimated GFR (MDRD) ml/min Glucose (74-106) mg/dL POC Glucose 245 H (70-99) mg/dL Calcium (8.5-10.1) mg/dL Total Bilirubin (0.2-1.0) mg/dL AST (15-37) IU/L ALT (14-63) IU/L Alkaline Phosphatase (46-116) U/L Troponin I < 0.050 (0.000-0.056) ng/mL Total Protein (6.4-8.2) g/dL Albumin (3.4-5.0) g/dL Globulin (2.6-4.0) g/dL Albumin/Globulin Ratio (0.9-1.6) Urine Color YELLOW Urine Appearance CLEAR Urine pH 5.5 (5.0-8.0) Ur Specific [place] >= 1.030 (1.001-1.035) Urine Protein NEGATIVE (NEGATIVE) mg/dL Urine Glucose (UA) NEGATIVE (NEGATIVE) mg/dL Urine Ketones TRACE H (NEGATIVE) mg/dL Urine Occult Blood NEGATIVE (NEGATIVE) Urine Nitrite NEGATIVE (NEGATIVE) Urine Bilirubin SMALL H (NEGATIVE) Urine Ictotest NEGATIVE Urine Urobilinogen 0.2 (<2.0) EU/dL Ur Leukocyte Esterase NEGATIVE (NEGATIVE) 04/28/21 04/29/21 04/29/21 Range/Units 17:02 05:39 05:39 WBC 9.07 (4.0-11.0) K/uL RBC 3.45 L (4.30-5.90) M/uL Hgb 9.8 L (12.0-16.0) g/dL Hct 29.8 L (36.0-46.0) % MCV 86.4 (80.0-98.0) fL MCH 28.4 (27.0-32.0) pg MCHC 32.9 (31.0-37.0) g/dL RDW Std Deviation 53.9 (28.0-62.0) fl RDW Coeff of Jeannette 17 H (11.0-15.0) % Plt Count 232 (150-400) K/uL MPV 9.70 (7.40-12.00) fL Neut % (Auto) 86.9 H (48.0-80.0) % Lymph % (Auto) 9.2 L (16.0-40.0) % [place] % (Auto) 3.9 (0.0-15.0) % Eos % (Auto) 0.0 (0.0-7.0) % Baso % (Auto) 0.0 (0.0-1.5) % Neut # (Auto) 7.9 H (1.4-5.7) K/uL Lymph # (Auto) 0.8 (0.6-2.4) K/uL [place] # (Auto) 0.4 (0.0-0.8) K/uL Eos # (Auto) 0.0 (0.0-0.7) K/uL Baso # (Auto) 0.0 (0.0-0.1) K/uL Nucleated RBC % 0.0 /100WBC Nucleated RBCs # 0 K/uL Sodium 137 (136-145) mmol/L Potassium 4.5 (3.5-5.1) mmol/L Chloride 101 (98-107) mmol/L Carbon Dioxide 25.4 (21.0-32.0) mmol/L BUN 30 H (7.0-18.0) mg/dL Creatinine 1.5 H (0.6-1.0) mg/dL Est Cr Clr Drug Dosing 40.24 mL/min Estimated GFR (MDRD) 43.4 ml/min Glucose 262 H (74-106) mg/dL POC Glucose 237 H (70-99) mg/dL Calcium 8.8 (8.5-10.1) mg/dL Total Bilirubin 0.5 (0.2-1.0) mg/dL AST 14 L (15-37) IU/L ALT 19 (14-63) IU/L Alkaline Phosphatase 85 (46-116) U/L Troponin I (0.000-0.056) ng/mL Total Protein 7.2 (6.4-8.2) g/dL Albumin 3.6 (3.4-5.0) g/dL Globulin 3.6 (2.6-4.0) g/dL Albumin/Globulin Ratio 1.0 (0.9-1.6) Urine Color Urine Appearance Urine pH (5.0-8.0) Ur Specific [place] (1.001-1.035) Urine Protein (NEGATIVE) mg/dL Urine Glucose (UA) (NEGATIVE) mg/dL Urine Ketones (NEGATIVE) mg/dL Urine Occult Blood (NEGATIVE) Urine Nitrite (NEGATIVE) Urine Bilirubin (NEGATIVE) Urine Ictotest Urine Urobilinogen (<2.0) EU/dL Ur Leukocyte Esterase (NEGATIVE) 04/29/21 Range/Units 06:47 WBC (4.0-11.0) K/uL RBC (4.30-5.90) M/uL Hgb (12.0-16.0) g/dL Hct (36.0-46.0) % MCV (80.0-98.0) fL MCH (27.0-32.0) pg MCHC (31.0-37.0) g/dL RDW Std Deviation (28.0-62.0) fl RDW Coeff of Jeannette (11.0-15.0) % Plt Count (150-400) K/uL MPV (7.40-12.00) fL Neut % (Auto) (48.0-80.0) % Lymph % (Auto) (16.0-40.0) % [place] % (Auto) (0.0-15.0) % Eos % (Auto) (0.0-7.0) % Baso % (Auto) (0.0-1.5) % Neut # (Auto) (1.4-5.7) K/uL Lymph # (Auto) (0.6-2.4) K/uL [place] # (Auto) (0.0-0.8) K/uL Eos # (Auto) (0.0-0.7) K/uL Baso # (Auto) (0.0-0.1) K/uL Nucleated RBC % /100WBC Nucleated RBCs # K/uL Sodium (136-145) mmol/L Potassium (3.5-5.1) mmol/L Chloride (98-107) mmol/L Carbon Dioxide (21.0-32.0) mmol/L BUN (7.0-18.0) mg/dL Creatinine (0.6-1.0) mg/dL Est Cr Clr Drug Dosing mL/min Estimated GFR (MDRD) ml/min Glucose (74-106) mg/dL POC Glucose 275 H (70-99) mg/dL Calcium (8.5-10.1) mg/dL Total Bilirubin (0.2-1.0) mg/dL AST (15-37) IU/L ALT (14-63) IU/L Alkaline Phosphatase (46-116) U/L Troponin I (0.000-0.056) ng/mL Total Protein (6.4-8.2) g/dL Albumin (3.4-5.0) g/dL Globulin (2.6-4.0) g/dL Albumin/Globulin Ratio (0.9-1.6) Urine Color Urine Appearance Urine pH (5.0-8.0) Ur Specific [place] (1.001-1.035) Urine Protein (NEGATIVE) mg/dL Urine Glucose (UA) (NEGATIVE) mg/dL Urine Ketones (NEGATIVE) mg/dL Urine Occult Blood (NEGATIVE) Urine Nitrite (NEGATIVE) Urine Bilirubin (NEGATIVE) Urine Ictotest Urine Urobilinogen (<2.0) EU/dL Ur Leukocyte Esterase (NEGATIVE) Med Orders - Current: Current Medications Albuterol (Albuterol 8 Gm Inhaler) 1 - 2 gm INH Q4H PRN PRN Reason: Shortness of Breath Last Admin: 04/28/21 10:06 Dose: 1 inhalation Documented by: Albuterol/Ipratropium (Albuterol/Ipratropium 3.0-0.5 Mg/3 Ml Neb Soln) 3 ml NEB Q4HRRT PRN PRN Reason: Wheezing Last Admin: 04/29/21 05:08 Dose: 3 ml Documented by: Aspirin (Aspirin 81 Mg Tab.Ec) 81 mg PO DAILY MARCELO Last Admin: 04/29/21 08:12 Dose: 81 mg Documented by: Atorvastatin Calcium (Atorvastatin 40 Mg Tab) 40 mg PO BEDTIME MARCELO Last Admin: 04/28/21 21:32 Dose: 40 mg Documented by: Dextrose/Water (50% Dextrose In Water 50 Ml Syringe) 50 ml IVPUSH ASDIRECTED PRN PRN Reason: Hypoglycemia Folic Acid (Folic Acid 1 Mg Tab) 1 mg PO BEDTIME MARCELO Last Admin: 04/28/21 21:33 Dose: 1 mg Documented by: Glucagon (Glucagon,Human Recombinant 1 Mg Vial) 1 mg IM ASDIRECTED PRN PRN Reason: Hypoglycemia Lisinopril/HCTZ (Lisinopril/Hydrochlorothiazide 10-12.5 Mg Tab) 1 tab PO DAILY MARCELO Last Admin: 04/29/21 08:12 Dose: 1 tab Documented by: Pantoprazole Sodium 40 mg/ (Sodium Chloride) 10 mls @ 300 mls/hr IV DAILY MARCELO Last Admin: 04/29/21 08:12 Dose: 300 mls/hr Documented by: Insulin Aspart (Insulin Aspart 100 Units/Ml 3 Ml Pen) 0 unit SUBCUT TIDAC [facility]; Protocol Last Admin: 04/29/21 07:59 Dose: 3 units Documented by: Lorazepam (Lorazepam 1 Mg Tab) 0 mg PO Q6H PRN; Protocol PRN Reason: Withdrawal Symptoms Methylprednisolone Sodium Succinate (Methylprednisolone Sodium Succinate 40 Mg/1 Ml Sdv) 40 mg IVPUSH Q8H MARCELO Last Admin: 04/29/21 08:31 Dose: 40 mg Documented by: Montelukast Sodium (Montelukast 10 Mg Tab) 10 mg PO BEDTIME MARCELO Last Admin: 04/28/21 21:33 Dose: 10 mg Documented by: Fluticasone/Salmeterol (Fluticasone/Salmeterol 250-50 Mcg Inhalation Powder 14/Diskus) 1 puff INH BID MARCELO Last Admin: 04/29/21 08:12 Dose: 1 puff Documented by: Thiamine HCl (Thiamine 100 Mg Tab) 100 mg PO BEDTIME MARCELO Last Admin: 04/28/21 21:33 Dose: 100 mg Documented by: Discontinued Medications Albuterol/Ipratropium (Albuterol/Ipratropium 3.0-0.5 Mg/3 Ml Neb Soln) 3 ml NEB Q4HRRT [facility] Al Hydroxide/Mg Hydroxide 15 (ml/ Lidocaine HCl 5 ml) 0 ml PO ONETIME ONE Stop: 04/28/21 08:32 Last Admin: 04/28/21 10:06 Dose: 1 each Documented by: Ketorolac Tromethamine (Ketorolac 30 Mg/Ml Sdv) 30 mg IVPUSH ONETIME ONE Stop: 04/28/21 00:29 Last Admin: 04/28/21 00:36 Dose: 30 mg Documented by: Lisinopril (Lisinopril 10 Mg Tab) 10 mg PO ONETIME ONE Stop: 04/28/21 02:24 Last Admin: 04/28/21 02:51 Dose: 10 mg Documented by: Lorazepam (Lorazepam 2 Mg/Ml Sdv) 0.5 mg IVPUSH ONETIME ONE Stop: 04/28/21 16:09 Last Admin: 04/28/21 16:35 Dose: 0.5 mg Documented by: Morphine Sulfate (Morphine 2 Mg/Ml Syringe) 2 mg IVPUSH Q3H PRN PRN Reason: Pain Last Admin: 04/28/21 06:06 Dose: 2 mg Documented by: Morphine Sulfate (Morphine 2 Mg/Ml Syringe) 2 mg IVPUSH Q4H PRN PRN Reason: Pain Last Admin: 04/29/21 05:44 Dose: 2 mg Documented by: Nitroglycerin (Nitroglycerin 0.4 Mg Tab.Sl) 0.4 mg SL ONETIME ONE Stop: 04/27/21 23:08 Last Admin: 04/27/21 23:29 Dose: 0.4 mg Documented by: - Exam Quality Assessment: No: Supplemental Oxygen General: Alert, Oriented HEENT: Pupils Reactive Neck: Supple Lungs: Normal Respiratory Effort, Wheezing Cardiovascular: Regular Rate, Regular Rhythm GI/Abdominal Exam: Normal Bowel Sounds, Soft, Non-Tender, No Organomegaly, No Distention Extremities: Normal Inspection, Normal Range of Motion, Non-Tender, No Pedal Edema, Normal Capillary Refill. No: Francisco Javier's Sign, Leg Pain Peripheral Pulses: 2+: Dorsalis Pedis (L), Dorsalis Pedis (R) Skin: Warm, Dry, Intact Neurological: No New Focal Deficit Psy/Mental Status: Alert, Normal Affect, Normal Mood - Patient Data Lab Results Last 24 hrs: Laboratory Results - last 24 hr 04/28/21 04/28/21 04/28/21 Range/Units 11:42 11:50 12:50 WBC (4.0-11.0) K/uL RBC (4.30-5.90) M/uL Hgb (12.0-16.0) g/dL Hct (36.0-46.0) % MCV (80.0-98.0) fL MCH (27.0-32.0) pg MCHC (31.0-37.0) g/dL RDW Std Deviation (28.0-62.0) fl RDW Coeff of Jeannette (11.0-15.0) % Plt Count (150-400) K/uL MPV (7.40-12.00) fL Neut % (Auto) (48.0-80.0) % Lymph % (Auto) (16.0-40.0) % [place] % (Auto) (0.0-15.0) % Eos % (Auto) (0.0-7.0) % Baso % (Auto) (0.0-1.5) % Neut # (Auto) (1.4-5.7) K/uL Lymph # (Auto) (0.6-2.4) K/uL [place] # (Auto) (0.0-0.8) K/uL Eos # (Auto) (0.0-0.7) K/uL Baso # (Auto) (0.0-0.1) K/uL Nucleated RBC % /100WBC Nucleated RBCs # K/uL Sodium (136-145) mmol/L Potassium (3.5-5.1) mmol/L Chloride (98-107) mmol/L Carbon Dioxide (21.0-32.0) mmol/L BUN (7.0-18.0) mg/dL Creatinine (0.6-1.0) mg/dL Est Cr Clr Drug Dosing mL/min Estimated GFR (MDRD) ml/min Glucose (74-106) mg/dL POC Glucose 245 H (70-99) mg/dL Calcium (8.5-10.1) mg/dL Total Bilirubin (0.2-1.0) mg/dL AST (15-37) IU/L ALT (14-63) IU/L Alkaline Phosphatase (46-116) U/L Troponin I < 0.050 (0.000-0.056) ng/mL Total Protein (6.4-8.2) g/dL Albumin (3.4-5.0) g/dL Globulin (2.6-4.0) g/dL Albumin/Globulin Ratio (0.9-1.6) Urine Color YELLOW Urine Appearance CLEAR Urine pH 5.5 (5.0-8.0) Ur Specific [place] >= 1.030 (1.001-1.035) Urine Protein NEGATIVE (NEGATIVE) mg/dL Urine Glucose (UA) NEGATIVE (NEGATIVE) mg/dL Urine Ketones TRACE H (NEGATIVE) mg/dL Urine Occult Blood NEGATIVE (NEGATIVE) Urine Nitrite NEGATIVE (NEGATIVE) Urine Bilirubin SMALL H (NEGATIVE) Urine Ictotest NEGATIVE Urine Urobilinogen 0.2 (<2.0) EU/dL Ur Leukocyte Esterase NEGATIVE (NEGATIVE) 04/28/21 04/29/21 04/29/21 Range/Units 17:02 05:39 05:39 WBC 9.07 (4.0-11.0) K/uL RBC 3.45 L (4.30-5.90) M/uL Hgb 9.8 L (12.0-16.0) g/dL Hct 29.8 L (36.0-46.0) % MCV 86.4 (80.0-98.0) fL MCH 28.4 (27.0-32.0) pg MCHC 32.9 (31.0-37.0) g/dL RDW Std Deviation 53.9 (28.0-62.0) fl RDW Coeff of Jeannette 17 H (11.0-15.0) % Plt Count 232 (150-400) K/uL MPV 9.70 (7.40-12.00) fL Neut % (Auto) 86.9 H (48.0-80.0) % Lymph % (Auto) 9.2 L (16.0-40.0) % [place] % (Auto) 3.9 (0.0-15.0) % Eos % (Auto) 0.0 (0.0-7.0) % Baso % (Auto) 0.0 (0.0-1.5) % Neut # (Auto) 7.9 H (1.4-5.7) K/uL Lymph # (Auto) 0.8 (0.6-2.4) K/uL [place] # (Auto) 0.4 (0.0-0.8) K/uL Eos # (Auto) 0.0 (0.0-0.7) K/uL Baso # (Auto) 0.0 (0.0-0.1) K/uL Nucleated RBC % 0.0 /100WBC Nucleated RBCs # 0 K/uL Sodium 137 (136-145) mmol/L Potassium 4.5 (3.5-5.1) mmol/L Chloride 101 (98-107) mmol/L Carbon Dioxide 25.4 (21.0-32.0) mmol/L BUN 30 H (7.0-18.0) mg/dL Creatinine 1.5 H (0.6-1.0) mg/dL Est Cr Clr Drug Dosing 40.24 mL/min Estimated GFR (MDRD) 43.4 ml/min Glucose 262 H (74-106) mg/dL POC Glucose 237 H (70-99) mg/dL Calcium 8.8 (8.5-10.1) mg/dL Total Bilirubin 0.5 (0.2-1.0) mg/dL AST 14 L (15-37) IU/L ALT 19 (14-63) IU/L Alkaline Phosphatase 85 (46-116) U/L Troponin I (0.000-0.056) ng/mL Total Protein 7.2 (6.4-8.2) g/dL Albumin 3.6 (3.4-5.0) g/dL Globulin 3.6 (2.6-4.0) g/dL Albumin/Globulin Ratio 1.0 (0.9-1.6) Urine Color Urine Appearance Urine pH (5.0-8.0) Ur Specific [place] (1.001-1.035) Urine Protein (NEGATIVE) mg/dL Urine Glucose (UA) (NEGATIVE) mg/dL Urine Ketones (NEGATIVE) mg/dL Urine Occult Blood (NEGATIVE) Urine Nitrite (NEGATIVE) Urine Bilirubin (NEGATIVE) Urine Ictotest Urine Urobilinogen (<2.0) EU/dL Ur Leukocyte Esterase (NEGATIVE) 04/29/21 Range/Units 06:47 WBC (4.0-11.0) K/uL RBC (4.30-5.90) M/uL Hgb (12.0-16.0) g/dL Hct (36.0-46.0) % MCV (80.0-98.0) fL MCH (27.0-32.0) pg MCHC (31.0-37.0) g/dL RDW Std Deviation (28.0-62.0) fl RDW Coeff of Jeannette (11.0-15.0) % Plt Count (150-400) K/uL MPV (7.40-12.00) fL Neut % (Auto) (48.0-80.0) % Lymph % (Auto) (16.0-40.0) % [place] % (Auto) (0.0-15.0) % Eos % (Auto) (0.0-7.0) % Baso % (Auto) (0.0-1.5) % Neut # (Auto) (1.4-5.7) K/uL Lymph # (Auto) (0.6-2.4) K/uL [place] # (Auto) (0.0-0.8) K/uL Eos # (Auto) (0.0-0.7) K/uL Baso # (Auto) (0.0-0.1) K/uL Nucleated RBC % /100WBC Nucleated RBCs # K/uL Sodium (136-145) mmol/L Potassium (3.5-5.1) mmol/L Chloride (98-107) mmol/L Carbon Dioxide (21.0-32.0) mmol/L BUN (7.0-18.0) mg/dL Creatinine (0.6-1.0) mg/dL Est Cr Clr Drug Dosing mL/min Estimated GFR (MDRD) ml/min Glucose (74-106) mg/dL POC Glucose 275 H (70-99) mg/dL Calcium (8.5-10.1) mg/dL Total Bilirubin (0.2-1.0) mg/dL AST (15-37) IU/L ALT (14-63) IU/L Alkaline Phosphatase (46-116) U/L Troponin I (0.000-0.056) ng/mL Total Protein (6.4-8.2) g/dL Albumin (3.4-5.0) g/dL Globulin (2.6-4.0) g/dL Albumin/Globulin Ratio (0.9-1.6) Urine Color Urine Appearance Urine pH (5.0-8.0) Ur Specific [place] (1.001-1.035) Urine Protein (NEGATIVE) mg/dL Urine Glucose (UA) (NEGATIVE) mg/dL Urine Ketones (NEGATIVE) mg/dL Urine Occult Blood (NEGATIVE) Urine Nitrite (NEGATIVE) Urine Bilirubin (NEGATIVE) Urine Ictotest Urine Urobilinogen (<2.0) EU/dL Ur Leukocyte Esterase (NEGATIVE) Result Diagrams: 04/29/21 05:39 04/29/21 05:39 Sepsis Event Note - Evaluation Sepsis Screening Result: No Definite Risk - Focused Exam Vital Signs: Vital Signs Temp Pulse Resp BP Pulse Ox 04/29/21 08:01 97.3 F 70 16 176/83 H 97 04/29/21 06:00 97 F 81 19 150/82 H 96 04/29/21 01:00 145/80 H 04/29/21 00:00 97.1 F 80 18 182/83 H 97 - Problem List & Annotations (1) Chest pain SNOMED Code(s): 97048902 Code(s): R07.9 - CHEST PAIN, UNSPECIFIED Status: Acute Current Visit: Yes Qualifiers: Chest pain type: unspecified Qualified Code(s): R07.9 - Chest pain, unspecified (2) Asthma exacerbation SNOMED Code(s): 754441895 Code(s): J45.901 - UNSPECIFIED ASTHMA WITH (ACUTE) EXACERBATION Status: Acute Current Visit: No (3) Diabetes mellitus type 2 in obese SNOMED Code(s): 38498536 Code(s): E11.9 - TYPE 2 DIABETES MELLITUS WITHOUT COMPLICATIONS; E66.9 - OBESITY, UNSPECIFIED Status: Chronic Priority: High Current Visit: No Annotation/Comment:: A1C 5.3% (4) History of hypertension SNOMED Code(s): 424861097 Code(s): Z86.79 - PERSONAL HISTORY OF OTHER DISEASES OF THE CIRCULATORY SYSTEM Status: Chronic Current Visit: No - Problem List Review Problem List Initiated/Reviewed/Updated: Yes - My Orders Last 24 Hours: My Active Orders 04/28/21 21:00 Folic Acid 1 mg PO BEDTIME Montelukast [Singulair] 10 mg PO BEDTIME Thiamine [Vitamin B-1] 100 mg PO BEDTIME atorvaSTATin [Lipitor] 40 mg PO BEDTIME - Plan Plan:: 55-year-old female admitted for asthma exacerbation. Patient's respiratory distress is improving. She continues on DuoNebs as needed. She denies chest pain or palpitations. Patient did get a GI cocktail yesterday. She denies reflux and is tolerating her diet. Patient has not required Ativan per CIWA protocol. DuoNebs every 4 hours and albuterol inhaler as needed. Home Advair and montelukast restarted. Incentive spirometry. Start methylprednisolone 40 mg every 8 hours. Patient has not required Ativan for CIWA protocol. We will start CIWA protocol since patient has a history of alcohol abuse. Thiamine and folic acid. Diabetic diet. Sliding scale. Continue home medications for hypertension. CODE STATUS: Full code
[2021-04-29] MEDS: Acetaminophen 325 MG Tab PO PRN ×2 (15:49→20:00)
[2021-04-29] MEDS: atorvaSTATin 40 MG Tab PO SCH (20:45)
[2021-04-29] MEDS: Folic Acid 1 MG Tab PO SCH (20:45)
[2021-04-29] MEDS: Montelukast 10 MG Tab PO SCH (20:45)
[2021-04-29] MEDS: Thiamine 100 MG Tab PO SCH (20:50)
[2021-04-30] MEDS: Lisinopril/Hydrochlorothiazide 10-12.5 MG Tab PO SCH (08:13)
[2021-04-30] MEDS: Insulin Aspart 100 Units/ML 3 ML Pen SUBCUT SCH ×2 (08:13→11:50)
[2021-04-30] MEDS: Aspirin 81 MG Tab.EC PO SCH (08:13)
[2021-04-30] MEDS: Fluticasone/Salmeterol 250-50 MCG Inhalation Powder 14/Diskus INH SCH (08:20)
[2021-04-30] MEDS: Pantoprazole 40 MG in Sodium Chloride 0.9% 10 ML IV SCH (08:22)
--- NOTE | 2021-04-30 11:31 | PCM.DCSUM1 ---
Discharge Summary - Hospital Course Free Text/Narrative:: 55-year-old female with history of HTN, IA, CVA, asthma and DM 2 was admitted to the hospital for asthma exacerbation and abdominal discomfort that resolved with GI cocktail and Protonix. She presented with wheezing throughout her lungs but did not not require supportive oxygen therapy. Her WBC count was normal and she remained afebrile. BUN was 30 creatinine was 1.5. Patient was treated with Solu-Medrol 40 mg, 5 doses. She also required duo nebs 4 times. We did continue her home medications including Advair, Singulair, albuterol. Patient blood pressure remained elevated during her admission despite continuing her home lisinopril/hydrochlorothiazide. She will discuss optimizing her blood pressure with her PCP. Patient also had elevated creatinine of 1.5 which is now normal. This has been elevated since September and she denies starting any new medications. It was advised that she avoid nephrotoxic medications. Her diabetes was controlled with sliding scale. Patient is being discharged on 3- day prednisone taper. On exam she is in no distress and lung rick are clear to auscultation bilaterally. - Discharge Data Discharge Date: 04/30/21 Discharge Disposition: Home, Self-Care 01 Condition: Stable - Referral to Home Health Primary Care Physician: Ken Hand MD - Discharge Diagnosis/Problem(s) (1) Chest pain SNOMED Code(s): 59640505 ICD Code: R07.9 - CHEST PAIN, UNSPECIFIED Status: Acute Current Visit: Yes Qualifiers: Chest pain type: unspecified Qualified Code(s): R07.9 - Chest pain, unspeci fied (2) Asthma exacerbation SNOMED Code(s): 492898920 ICD Code: J45.901 - UNSPECIFIED ASTHMA WITH (ACUTE) EXACERBATION Status: Acute Current Visit: No (3) Diabetes mellitus type 2 in obese SNOMED Code(s): 87317694 ICD Code: E11.9 - TYPE 2 DIABETES MELLITUS WITHOUT COMPLICATIONS; E66.9 - OBESITY, UNSPECIFIED Status: Chronic Priority: High Current Visit: No Problem Details: A1C 5.3% (4) History of hypertension SNOMED Code(s): 232734682 ICD Code: Z86.79 - PERSONAL HISTORY OF OTHER DISEASES OF THE CIRCULATORY SYSTEM Status: Chronic Current Visit: No - Patient Instructions Diet: Diabetic Diet Activity: As Tolerated Other/Special Instructions: You were admitted for an episode of asthma. You are being discharged on 3 days of prednisone to be taken once a day. You are following up with Dr. Dickens on 05/05/2021. Please discuss your high blood pressure management. Please make sure to get your inhalers refilled before they finish. Please seek medical attention if you experience dizziness, chest pain, headaches, loss of consciousness, excessive sweating or racing heartbeat. - Discharge Plan *PRESCRIPTION DRUG MONITORING PROGRAM REVIEWED*: Not Applicable *COPY OF PRESCRIPTION DRUG MONITORING REPORT IN PATIENT TREVOR: Not Applicable Prescriptions/Med Rec: predniSONE [Prednisone] 40 mg PO DAILY 3 Days #6 tablet Home Medications: Home Meds atorvaSTATin [Lipitor] 40 mg PO BEDTIME 90 Days #30 tab 04/18/18 [Rx] Glimepiride [Amaryl] 2 mg PO DAILY 07/22/18 [History] metFORMIN HCl [Metformin HCl] 500 mg PO BID 06/23/19 [History] Lisinopril/Hydrochlorothiazide [Lisinopril-HCTZ 10-12.5 MG] 10 - 12.5 mg PO DAILY #30 tab 10/15/20 [Rx] Albuterol [Proventil Neb Soln] 2.5 mg NEB Q4HRRT PRN #50 cup 11/02/20 [Rx] Aspirin [Aspirin EC] 81 mg PO DAILY 11/08/20 [History] Fluticasone Propion/Salmeterol [Advair 250-50 Diskus] 1 inh IH BID 03/30/21 [History] Montelukast [Singulair] 10 mg PO BEDTIME 03/30/21 [History] Albuterol Sulfate [Proair Hfa] 1 - 2 inh IH Q4H PRN #1 inh 04/01/21 [Rx] predniSONE [Prednisone] 40 mg PO DAILY 3 Days #6 tablet 04/30/21 [Rx] Patient Handouts: Nonspecific Chest Pain, Adult Forms: ED Department Discharge Referrals: Cuba Dickens MD [Physician] - 05/05/21 2:00 pm - Discharge Summary/Plan Comment DC Time >30 min.: No Total # of Minutes for Discharge Time: 20 - General Info Admission Dx/Problem (Free Text: Admission Diagnosis/Problem Admission Diagnosis/Problem Chest pain in adult Functional Status: Reports: Tolerating Diet, Ambulating, Urinating - Review of Systems General: Reports: No Symptoms HEENT: Reports: No Symptoms Pulmonary: Reports: No Symptoms Cardiovascular: Reports: No Symptoms Gastrointestinal: Reports: No Symptoms Genitourinary: Reports: No Symptoms Musculoskeletal: Reports: No Symptoms Skin: Reports: No Symptoms Neurological: Reports: No Symptoms - Patient Data Vitals - Most Recent: Last Vital Signs Temp 97.8 F 04/30/21 07:25 Pulse 65 04/30/21 09:21 Resp 16 04/30/21 07:25 BP 154/78 H 04/30/21 09:21 Pulse Ox 99 04/30/21 07:25 Weight - Most Recent: 239 lb 6 oz I&O - Last 24 hours: Intake & Output 04/29/21 04/30/21 04/30/21 22:59 06:59 14:59 Intake Total 710 650 Output Total 400 500 Balance 310 150 Lab Results - Last 24 hrs: Laboratory Results - last 24 hr 04/29/21 04/29/21 04/30/21 Range/Units 15:52 16:55 06:27 POC Glucose 298 H 359 H 212 H (70-99) mg/dL 04/30/21 Range/Units 08:06 POC Glucose 188 H (70-99) mg/dL Med Orders - Current: Current Medications Acetaminophen (Acetaminophen 325 Mg Tab) 650 mg PO Q4H PRN PRN Reason: Pain Last Admin: 04/29/21 20:00 Dose: 650 mg Documented by: Albuterol (Albuterol 8 Gm Inhaler) 1 - 2 gm INH Q4H PRN PRN Reason: Shortness of Breath Last Admin: 04/28/21 10:06 Dose: 1 inhalation Documented by: Albuterol/Ipratropium (Albuterol/Ipratropium 3.0-0.5 Mg/3 Ml Neb Soln) 3 ml NEB Q4HRRT PRN PRN Reason: Wheezing Last Admin: 04/29/21 20:47 Dose: 3 ml Documented by: Aspirin (Aspirin 81 Mg Tab.Ec) 81 mg PO DAILY MARCELO Last Admin: 04/30/21 08:13 Dose: 81 mg Documented by: Atorvastatin Calcium (Atorvastatin 40 Mg Tab) 40 mg PO BEDTIME MARCELO Last Admin: 04/29/21 20:45 Dose: 40 mg Documented by: Dextrose/Water (50% Dextrose In Water 50 Ml Syringe) 50 ml IVPUSH ASDIRECTED PRN PRN Reason: Hypoglycemia Folic Acid (Folic Acid 1 Mg Tab) 1 mg PO BEDTIME [facility] Last Admin: 04/29/21 20:45 Dose: 1 mg Documented by: Glucagon (Glucagon,Human Recombinant 1 Mg Vial) 1 mg IM ASDIRECTED PRN PRN Reason: Hypoglycemia Lisinopril/HCTZ (Lisinopril/Hydrochlorothiazide 10-12.5 Mg Tab) 1 tab PO DAILY [facility] Last Admin: 04/30/21 08:13 Dose: 1 tab Documented by: Pantoprazole Sodium 40 mg/ (Sodium Chloride) 10 mls @ 300 mls/hr IV DAILY [facility] Last Admin: 04/30/21 08:22 Dose: 300 mls/hr Documented by: Insulin Aspart (Insulin Aspart 100 Units/Ml 3 Ml Pen) 0 unit SUBCUT TIDAC [facility]; Protocol Last Admin: 04/30/21 08:13 Dose: 2 units Documented by: Montelukast Sodium (Montelukast 10 Mg Tab) 10 mg PO BEDTIME [facility] Last Admin: 04/29/21 20:45 Dose: 10 mg Documented by: Fluticasone/Salmeterol (Fluticasone/Salmeterol 250-50 Mcg Inhalation Powder 14/Diskus) 1 puff INH BID [facility] Last Admin: 04/30/21 08:20 Dose: 1 puff Documented by: Thiamine HCl (Thiamine 100 Mg Tab) 100 mg PO BEDTIME [facility] Last Admin: 04/29/21 20:50 Dose: 100 mg Documented by: Discontinued Medications Albuterol/Ipratropium (Albuterol/Ipratropium 3.0-0.5 Mg/3 Ml Neb Soln) 3 ml NEB Q4HRRT [facility] Al Hydroxide/Mg Hydroxide 15 (ml/ Lidocaine HCl 5 ml) 0 ml PO ONETIME ONE Stop: 04/28/21 08:32 Last Admin: 04/28/21 10:06 Dose: 1 each Documented by: Ketorolac Tromethamine (Ketorolac 30 Mg/Ml Sdv) 30 mg IVPUSH ONETIME ONE Stop: 04/28/21 00:29 Last Admin: 04/28/21 00:36 Dose: 30 mg Documented by: Lisinopril (Lisinopril 10 Mg Tab) 10 mg PO ONETIME ONE Stop: 04/28/21 02:24 Last Admin: 04/28/21 02:51 Dose: 10 mg Documented by: Lorazepam (Lorazepam 1 Mg Tab) 0 mg PO Q6H PRN; Protocol PRN Reason: Withdrawal Symptoms Lorazepam (Lorazepam 2 Mg/Ml Sdv) 0.5 mg IVPUSH ONETIME ONE Stop: 04/28/21 16:09 Last Admin: 04/28/21 16:35 Dose: 0.5 mg Documented by: Methylprednisolone Sodium Succinate (Methylprednisolone Sodium Succinate 40 Mg/1 Ml Sdv) 40 mg IVPUSH Q8H MARCELO Last Admin: 04/29/21 16:59 Dose: 40 mg Documented by: Morphine Sulfate (Morphine 2 Mg/Ml Syringe) 2 mg IVPUSH Q3H PRN PRN Reason: Pain Last Admin: 04/28/21 06:06 Dose: 2 mg Documented by: Morphine Sulfate (Morphine 2 Mg/Ml Syringe) 2 mg IVPUSH Q4H PRN PRN Reason: Pain Last Admin: 04/29/21 05:44 Dose: 2 mg Documented by: Nitroglycerin (Nitroglycerin 0.4 Mg Tab.Sl) 0.4 mg SL ONETIME ONE Stop: 04/27/21 23:08 Last Admin: 04/27/21 23:29 Dose: 0.4 mg Documented by: - Exam General: Reports: Alert, Oriented, No Acute Distress HEENT: Reports: Pupils Reactive Neck: Reports: Supple, No JVD Lungs: Reports: Clear to Auscultation. Denies: Wheezing Cardiovascular: Reports: Regular Rate, Regular Rhythm GI/Abdominal Exam: Normal Bowel Sounds, Soft, Non-Tender Extremities: Normal Inspection, No Pedal Edema. No: Francisco Javier's Sign, Leg Pain Skin: Reports: Warm, Dry, Intact Neurological: Reports: No New Focal Deficit
[2021-04-30 11:54] VITALS: BP 141/68
[2021-04-30 11:55] VITALS: PULSE 64
== END 2021-04-30 12:53 | disposition home or self-care (01) ==
LOC: MW.ED 22:42 → MW.MS 04-28 01:06
PROVIDERS: ADMIT Internal Medicine; ATTEND Internal Medicine
DX: R07.9 Chest pain, unspecified (principal); J45.901 Unspecified asthma with (acute) exacerbation; I10 Essential (primary) hypertension; I25.2 Old myocardial infarction; E78.5 Hyperlipidemia, unspecified; E11.9 Type 2 diabetes mellitus without complications; J45.909 Unspecified asthma, uncomplicated; G47.33 Obstructive sleep apnea (adult) (pediatric); R07.2 Precordial pain; K21.9 Gastro-esophageal reflux disease without esophagitis; F10.10 Alcohol abuse, uncomplicated; F17.210 Nicotine dependence, cigarettes, uncomplicated; Z20.822 Contact with and (suspected) exposure to COVID-19; Z79.899 Other long term (current) drug therapy; Z86.73 Personal history of transient ischemic attack (TIA), and cerebral infarction without residual deficits; Z79.82 Long term (current) use of aspirin
CPT/HCPCS: 36415; 80053; 81003; 82550; 82947; 83690; 83735; 84100; 84484; 85025; 87635; 93005; 94640; 96374; 96375; 96376; 99285; A9270; C9113; G0378; J1815; J1885; J2060; J2270; J2920; J7620-GY; U0002

== ENCOUNTER 2021-06-04 19:36 | Inpatient (IN) | payer MEDICAID ==
[2021-06-04] MEDS ORDERED: Sodium Chloride 0.9% 2.5 ML Syringe FLUSH PRN (19:42)
[2021-06-04] MEDS ORDERED: Lactated Ringers 1,000 ML IV ONE (19:42)
[2021-06-04] MEDS ORDERED: Sodium Chloride 0.9% 10 ML Syringe FLUSH PRN (19:42)
[2021-06-04] MEDS ORDERED: methylPREDNISolone Sodium Succinate 125 MG/2 ML SDV IVPUSH ONE (19:42)
[2021-06-04] MEDS ORDERED: Albuterol/Ipratropium 3.0-0.5 MG/3 ML Neb Soln NEB ONE (19:46)
[2021-06-04] MEDS ORDERED: 50% Dextrose in Water 50 ML Syringe IVPUSH ONE (19:47)
--- NOTE | 2021-06-04 19:48 | EDM.PDOC ---
ED HPI GENERAL MEDICAL PROBLEM - General Stated Complaint: EMS Time Seen by Provider: 06/04/21 19:41 Source of Information: Reports: Patient, EMS History Limitations: Reports: No Limitations - History of Present Illness INITIAL COMMENTS - FREE TEXT/NARRATIVE: 56-year-old female history of diabetes, ME, HTN, DM, obesity, AYLA, CVA with residual left lower extremity weakness, asthma presents with chest tightness that started 10 minutes prior to arrival. Chest pain is localized to the left chest described as sharp, nonradiating, rated 6/10, constant, no alleviating or exacerbating factors. She also notes left upper extremity weakness with last known well at 3 PM today. EMS noted Accu-Chek = 51 and gave 2 tabs of glucose which did not change her blood glucose to 51. Patient denies fever, chills, headache, abdominal pain, cough, vomiting, diarrhea, headache. ROS: A 10-point review of systems, other than pertinent positives and negatives as stated per HPI, is otherwise negative Past medical history: No additional pertinent history Past Surgical history: No additional pertinent history Social history: No additional pertinent history Family history: No additional pertinent history PHYSICAL EXAM General: AOx4, GCS = 15, No distress HEENT: dry mucous membrane Neck: supple, no meningismus, no Kernig or Brudzinski Cardiac: S1S2 RRR Respiratory: Diminished breath sounds bilaterally with expiratory wheezing Abdomen: Soft, nontender, no rebound or guarding, nondistended, no pulsatile mass. Back: nontender Musculoskeletal: NVI distally, no deformity Neuro: No focal deficits, CN 2 - 12 WNL. NIHSS = 0, no weakness to left upper extremity. Left Shoulder Pain Score (Numeric/FACES): 9 - Related Data Allergies Allergy/AdvReac Type Severity Reaction Status Date / Time No Known Allergies Allergy Verified 04/28/21 01:55 Home Meds: Home Meds atorvaSTATin [Lipitor] 40 mg PO BEDTIME 90 Days #30 tab 04/18/18 [Rx] Glimepiride [Amaryl] 2 mg PO DAILY 07/22/18 [History] metFORMIN HCl [Metformin HCl] 500 mg PO BID 06/23/19 [History] Lisinopril/Hydrochlorothiazide [Lisinopril-HCTZ 10-12.5 MG] 10 - 12.5 mg PO DAILY #30 tab 10/15/20 [Rx] Albuterol [Proventil Neb Soln] 2.5 mg NEB Q4HRRT PRN #50 cup 11/02/20 [Rx] Aspirin [Aspirin EC] 81 mg PO DAILY 11/08/20 [History] Fluticasone Propion/Salmeterol [Advair 250-50 Diskus] 1 inh IH BID 03/30/21 [History] Montelukast [Singulair] 10 mg PO BEDTIME 03/30/21 [History] Albuterol Sulfate [Proair Hfa] 1 - 2 inh IH Q4H PRN #1 inh 04/01/21 [Rx] predniSONE [Prednisone] 40 mg PO DAILY 3 Days #6 tablet 04/30/21 [Rx] Past Medical History HEENT History: Reports: Other (See Below) Other HEENT History: ear infection Cardiovascular History: Reports: CAD, High Cholesterol, Hypertension, ME Respiratory History: Reports: Asthma, Sleep Apnea Gastrointestinal History: Reports: GERD Genitourinary History: Reports: None MANAGER PLACEMENT History: Reports: Other MANAGER PLACEMENT History: 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 Musculoskeletal History: Reports: Other (See Below) Other Musculoskeletal History: ankle fracture - 2013 Neurological History: Reports: TIA Psychiatric History: Reports: None Endocrine/Metabolic History: Reports: Diabetes, Type II Hematologic History: Reports: None Immunologic History: Reports: None Oncologic (Cancer) History: Reports: None Dermatologic History: Reports: None - Infectious Disease History Infectious Disease History: Reports: Chicken Pox, Measles, Mumps - Past Surgical History HEENT Surgical History: Reports: None Cardiovascular Surgical History: Reports: None Respiratory Surgical History: Reports: None GI Surgical History: Reports: None Female Surgical History: Reports: None Endocrine Surgical History: Reports: None Neurological Surgical History: Reports: None Musculoskeletal Surgical History: Reports: Other (See Below) Other Musculoskeletal Surgeries/Procedures:: broke Left ankle Dermatological Surgical History: Reports: None Social & Family History - Family History Family Medical History: No Pertinent Family History Cardiac: Reports: Hypertension, ME Respiratory: Reports: Asthma OBGYN: Reports: Musculoskeletal: Reports: Arthritis Neurological: Reports: CVA Endocrine/Metabolic: Reports: Diabetes, type II - Caffeine Use Caffeine Use: Reports: Tea ED ROS GENERAL - Review of Systems Review Of Systems: See Below (see dictation) ED EXAM, GENERAL - Physical Exam Exam: See Below (see dictation) #1 Interpretation EKG Interpretation Comments: Heart rate = 101 bpm, sinus tachycardia, normal QRS interval, no STEMI. EKG and rhythm strip interpreted by me at 2031 Course - Vital Signs Last Recorded V/S: Last Vital Signs Temp 98.8 F 06/04/21 19:51 Pulse 100 06/04/21 20:42 Resp 20 06/04/21 20:42 BP 140/85 06/04/21 20:46 Pulse Ox 100 06/04/21 20:42 - Orders/Labs/Meds Orders: Active Orders 24 hr Category Date Time Status Patient Status [ADT] Routine ADT 06/04/21 21:12 Ordered Cardiac Monitoring [RC] . DIRECTED Care 06/04/21 19:42 Active Pulse Oximetry [RC] ASDIRECTED Care 06/04/21 19:42 Active RT Aerosol Therapy [RC] ASDIRECTED Care 06/04/21 19:46 Active B-TYPE NATRIURETIC PEPTIDE,BNP [CHEM] Stat Lab 06/04/21 20:36 Received CORONAVIRUS COVID-19 [place] [MOLEC] Stat Lab 06/04/21 20:44 Received UA W/LETICIA RFLX IF INDICATED [URIN] Stat Lab 06/04/21 19:44 Ordered Nitroglycerin [Nitrostat] Med 06/04/21 20:40 Active 0.4 mg SL Q5M PRN Sodium Chloride 0.9% [Saline Flush] Med 06/04/21 19:42 Active 10 ml FLUSH ASDIRECTED PRN Sodium Chloride 0.9% [Saline Flush] Med 06/04/21 19:42 Active 2.5 ml FLUSH ASDIRECTED PRN Saline Lock Insert [OM.PC] Stat Oth 06/04/21 19:42 Ordered Medication Orders Nitroglycerin (Nitroglycerin 0.4 Mg Tab.Sl) 0.4 mg SL Q5M PRN PRN Reason: Chest Pain Last Admin: 06/04/21 20:46 Dose: 0.4 mg Documented by: JESUS Sodium Chloride (Sodium Chloride 0.9% 10 Ml Syringe) 10 ml FLUSH ASDIRECTED PRN PRN Reason: Keep Vein Open Sodium Chloride (Sodium Chloride 0.9% 2.5 Ml Syringe) 2.5 ml FLUSH ASDIRECTED PRN PRN Reason: Keep Vein Open Labs: Laboratory Tests 06/04/21 06/04/21 06/04/21 Range/Units 20:36 20:36 20:36 WBC 4.81 (4.0-11.0) K/uL RBC 3.99 L (4.30-5.90) M/uL Hgb 11.8 L (12.0-16.0) g/dL Hct 35.9 L (36.0-46.0) % MCV 90.0 (80.0-98.0) fL MCH 29.6 (27.0-32.0) pg MCHC 32.9 (31.0-37.0) g/dL RDW Std Deviation 50.4 (28.0-62.0) fl RDW Coeff of Jeannette 16 H (11.0-15.0) % Plt Count 209 (150-400) K/uL MPV 10.20 (7.40-12.00) fL Neut % (Auto) 56.3 (48.0-80.0) % Lymph % (Auto) 30.8 (16.0-40.0) % Wolfe % (Auto) 9.4 (0.0-15.0) % Eos % (Auto) 3.3 (0.0-7.0) % Baso % (Auto) 0.2 (0.0-1.5) % Neut # (Auto) 2.7 (1.4-5.7) K/uL Lymph # (Auto) 1.5 (0.6-2.4) K/uL Wolfe # (Auto) 0.5 (0.0-0.8) K/uL Eos # (Auto) 0.2 (0.0-0.7) K/uL Baso # (Auto) 0.0 (0.0-0.1) K/uL Nucleated RBC % 0.0 /100WBC Nucleated RBCs # 0 K/uL INR 1.00 Sodium 137 (136-145) mmol/L Potassium 3.8 (3.5-5.1) mmol/L Chloride 98 (98-107) mmol/L Carbon Dioxide 22.8 (21.0-32.0) mmol/L BUN 11 (7.0-18.0) mg/dL Creatinine 1.2 H (0.6-1.0) mg/dL Est Cr Clr Drug Dosing 49.69 mL/min Estimated GFR (MDRD) 55.9 ml/min Glucose 118 H (74-106) mg/dL POC Glucose (70-99) mg/dL Calcium 9.7 (8.5-10.1) mg/dL Phosphorus 2.3 L (2.6-4.7) mg/dL Magnesium 1.7 L (1.8-2.4) mg/dL Total Bilirubin 0.4 (0.2-1.0) mg/dL AST 33 (15-37) IU/L ALT 32 (14-63) IU/L Alkaline Phosphatase 68 (46-116) U/L Total Protein 7.3 (6.4-8.2) g/dL Albumin 3.7 (3.4-5.0) g/dL Globulin 3.6 (2.6-4.0) g/dL Albumin/Globulin Ratio 1.0 (0.9-1.6) 06/04/21 Range/Units 20:49 WBC (4.0-11.0) K/uL RBC (4.30-5.90) M/uL Hgb (12.0-16.0) g/dL Hct (36.0-46.0) % MCV (80.0-98.0) fL MCH (27.0-32.0) pg MCHC (31.0-37.0) g/dL RDW Std Deviation (28.0-62.0) fl RDW Coeff of Jeannette (11.0-15.0) % Plt Count (150-400) K/uL MPV (7.40-12.00) fL Neut % (Auto) (48.0-80.0) % Lymph % (Auto) (16.0-40.0) % Wolfe % (Auto) (0.0-15.0) % Eos % (Auto) (0.0-7.0) % Baso % (Auto) (0.0-1.5) % Neut # (Auto) (1.4-5.7) K/uL Lymph # (Auto) (0.6-2.4) K/uL Wolfe # (Auto) (0.0-0.8) K/uL Eos # (Auto) (0.0-0.7) K/uL Baso # (Auto) (0.0-0.1) K/uL Nucleated RBC % /100WBC Nucleated RBCs # K/uL INR Sodium (136-145) mmol/L Potassium (3.5-5.1) mmol/L Chloride (98-107) mmol/L Carbon Dioxide (21.0-32.0) mmol/L BUN (7.0-18.0) mg/dL Creatinine (0.6-1.0) mg/dL Est Cr Clr Drug Dosing mL/min Estimated GFR (MDRD) ml/min Glucose (74-106) mg/dL POC Glucose 115 H (70-99) mg/dL Calcium (8.5-10.1) mg/dL Phosphorus (2.6-4.7) mg/dL Magnesium (1.8-2.4) mg/dL Total Bilirubin (0.2-1.0) mg/dL AST (15-37) IU/L ALT (14-63) IU/L Alkaline Phosphatase (46-116) U/L Total Protein (6.4-8.2) g/dL Albumin (3.4-5.0) g/dL Globulin (2.6-4.0) g/dL Albumin/Globulin Ratio (0.9-1.6) Meds: Medications Generic Name Dose Route Start Last Admin Trade Name Freq PRN Reason Stop Dose Admin Nitroglycerin 0.4 mg 06/04/21 20:40 06/04/21 20:46 Nitroglycerin 0.4 Mg Tab.Sl SL 0.4 mg Q5M PRN Administration Chest Pain Sodium Chloride 10 ml 06/04/21 19:42 Sodium Chloride 0.9% 10 Ml Syringe FLUSH ASDIRECTED PRN Keep Vein Open Sodium Chloride 2.5 ml 06/04/21 19:42 Sodium Chloride 0.9% 2.5 Ml Syringe FLUSH ASDIRECTED PRN Keep Vein Open Discontinued Medications Generic Name Dose Route Start Last Admin Trade Name Freq PRN Reason Stop Dose Admin Albuterol/Ipratropium 3 ml 06/04/21 19:46 06/04/21 20:34 Albuterol/Ipratropium 3.0-0.5 Mg/3 Ml Neb Soln NEB 06/04/21 19:47 3 ml ONETIME ONE Administration Aspirin 324 mg 06/04/21 20:40 06/04/21 20:42 Aspirin 81 Mg Tab.Chew PO 06/04/21 20:41 324 mg ONETIME ONE Administration Aspirin Confirm 06/04/21 20:41 06/04/21 20:50 Aspirin 81 Mg Tab.Chew Administered 06/04/21 20:42 Not Given Dose 324 mg .ROUTE .STK-MED ONE Dextrose/Water 50 ml 06/04/21 19:47 06/04/21 20:57 50% Dextrose In Water 50 Ml Syringe IVPUSH 06/04/21 19:48 50 ml ONETIME ONE Administration Lactated Ringer's 1,000 mls @ 999 mls/hr 06/04/21 19:42 06/04/21 20:34 Ringers, Lactated IV 06/04/21 20:42 999 mls/hr .BOLUS ONE Administration Iopamidol 100 ml 06/04/21 20:16 06/04/21 20:17 Iopamidol 755 Mg/Ml 100 Ml Bottle IVPUSH 06/04/21 20:17 100 ml ONETIME ONE Administration Methylprednisolone Sodium Succinate 125 mg 06/04/21 19:42 06/04/21 20:34 Methylprednisolone Sodium Succinate 125 Mg/2 Ml Sdv IVPUSH 06/04/21 19:43 125 mg ONETIME ONE Administration Morphine Sulfate 4 mg 06/04/21 21:08 Morphine 4 Mg/Ml Syringe IVPUSH 06/04/21 21:09 ONETIME ONE Nitroglycerin Confirm 06/04/21 20:41 06/04/21 20:50 Nitroglycerin 0.4 Mg Tab.Sl Administered 06/04/21 20:42 Not Given Dose 1.2 mg .ROUTE .STK-MED ONE - Re-Assessments/Exams Free Text/Narrative Re-Assessment/Exam: 06/04/21 20:48 Ordered aspirin, DuoNeb treatment, Solu-Medrol, nitroglycerin sublingual x3 for chest pain rated 02/2606/04/21 21:05 Repeat Accu-Chek = 116. Patient has a heart score = 5, warrants admission for further assessment. Her complaint of left upper extremity weakness was likely secondary to hypoglycemia and stroke mimic. Her CT head and CT angio head and neck were unremarkable for LVO or ischemia. 06/04/21 21:[address] Lin, who agrees to admit patient. The hospitalist's documentation supersedes all other documentation on this patient with regard to any conflicts or discrepancies from this point forward. Any emergency conditions have been treated to the ability of the ED prior to admission. Departure - Departure Time of Disposition: 21:13 Disposition: Refer to Observation Condition: Good Clinical Impression: Atypical chest pain, Chest pain, rule out acute myocardial infarction, Hypoglycemia, AYLA (obstructive sleep apnea), History of CVA (cerebrovascular accident), History of asthma, Diabetes mellitus type 2 in obese, Obesity (BMI 30-39.9), History of hypertension Asthma exacerbation Qualifiers: Asthma severity: mild Asthma persistence: intermittent Qualified Code(s): J45.21 - Mild intermittent asthma with (acute) exacerbation - Discharge Information *PRESCRIPTION DRUG MONITORING PROGRAM REVIEWED*: Not Applicable *COPY OF PRESCRIPTION DRUG MONITORING REPORT IN PATIENT TREVOR: Not Applicable Sepsis Event Note (ED) - Focused Exam Vital Signs: Vital Signs Temp Pulse Resp BP BP Pulse Ox 06/04/21 20:46 140/85 06/04/21 20:42 100 20 130/86 100 06/04/21 19:51 98.8 F 98 20 148/87 H 97 - My Orders Last 24 Hours: My Active Orders 06/04/21 19:42 Cardiac Monitoring [RC] . DIRECTED Pulse Oximetry [RC] ASDIRECTED Sodium Chloride 0.9% [Saline Flush] 10 ml FLUSH ASDIRECTED PRN Sodium Chloride 0.9% [Saline Flush] 2.5 ml FLUSH ASDIRECTED PRN Saline Lock Insert [OM.PC] Stat 06/04/21 19:44 UA W/LETICIA RFLX IF INDICATED [URIN] Stat 06/04/21 19:46 RT Aerosol Therapy [RC] ASDIRECTED 06/04/21 20:36 B-TYPE NATRIURETIC PEPTIDE,BNP [CHEM] Stat 06/04/21 20:40 Nitroglycerin [Nitrostat] 0.4 mg SL Q5M PRN 06/04/21 20:44 CORONAVIRUS COVID-19 [place] [MOLEC] Stat 06/04/21 21:12 Patient Status [ADT] Routine - Assessment/Plan Last 24 Hours: My Active Orders 06/04/21 19:42 Cardiac Monitoring [RC] . DIRECTED Pulse Oximetry [RC] ASDIRECTED Sodium Chloride 0.9% [Saline Flush] 10 ml FLUSH ASDIRECTED PRN Sodium Chloride 0.9% [Saline Flush] 2.5 ml FLUSH ASDIRECTED PRN Saline Lock Insert [OM.PC] Stat 06/04/21 19:44 UA W/LETICIA RFLX IF INDICATED [URIN] Stat 06/04/21 19:46 RT Aerosol Therapy [RC] ASDIRECTED 06/04/21 20:36 B-TYPE NATRIURETIC PEPTIDE,BNP [CHEM] Stat 06/04/21 20:40 Nitroglycerin [Nitrostat] 0.4 mg SL Q5M PRN 06/04/21 20:44 CORONAVIRUS COVID-19 [place] [MOLEC] Stat 06/04/21 21:12 Patient Status [ADT] Routine
[2021-06-04] MEDS ORDERED: Iopamidol 755 Mg/ML 100 ML Bottle IVPUSH ONE (20:16)
--- NOTE | 2021-06-04 20:22 | CT ---
INDICATION: Left upper extremity weakness. TECHNIQUE: CT of the head without contrast. Coronal and sagittal reformats are included. COMPARISON: None available FINDINGS: No CT evidence of acute cortical infarct. No acute intracranial hemorrhage. No mass effect or midline shift. No hydrocephalus or extra-axial collections. White matter is within normal limits for age. No acute osseous abnormalities. Hyperostosis frontalis. Mastoid air cells and paranasal sinuses are clear. Normal soft tissues. IMPRESSION: IMPRESSION: 1. No acute intracranial abnormalities. Please note that all CT scans at this facility use dose modulation, iterative reconstruction, and/or weight-based dosing when appropriate to reduce radiation dose to as low as reasonably achievable. Dictated by Hari Armijo MD @ 06/04/2021 8:21:10 PM (Electronically Signed)
[2021-06-04] MEDS ORDERED: Nitroglycerin 0.4 MG Tab.SL SL PRN (20:40)
[2021-06-04] MEDS ORDERED: Aspirin 81 MG Tab.Chew PO ONE (20:40)
--- NOTE | 2021-06-04 20:40 | CT ---
DATE: 06/04/2021. CLINICAL HISTORY: Patient with left upper extremity weakness. TECHNIQUE: Standard helical CT image acquisition through the head and neck after intravenous contrast bolus enhancement was performed. Multiplanar reconstructed images performed on a separate workstation. COMPARISON: None available. FINDINGS: The origins of the great vessels from the aortic arch are patent. The origins of the right and left vertebral arteries are patent. The common carotid arteries are patent. No significant stenoses at the origins of the proximal internal carotid arteries by NASCET criteria. The more distal cervical segments of the internal carotid arteries are patent, noting marked tortuosity of the mid to distal cervical segments with a retropharyngeal course bilaterally and the right internal carotid artery approaching the midline. The cervical segments of the vertebral arteries are patent. No intracranial proximal large vessel occlusion. Multifocal intracranial atherosclerotic disease with resulting mild luminal stenosis of the bilateral distal cavernous and clinoid segments of the internal carotid arteries. The visualized lung apices are unremarkable. The thyroid gland is unremarkable. There are degenerative changes in the cervical spine. IMPRESSION: 1. No intracranial proximal large vessel occlusion. 2. Scattered intracranial atherosclerotic disease with resulting mild luminal stenosis of the bilateral distal cavernous and clinoid segments of the internal carotid arteries. 3. Patent cervical arterial vasculature without hemodynamically significant luminal stenosis. Please note that all CT scans at this facility use dose modulation, iterative reconstruction, and/or weight-based dosing when appropriate to reduce radiation dose to as low as reasonably achievable. Dictated by Kaushik Dumont MD @ 06/05/2021 10:54:30 AM (Electronically Signed)
[2021-06-04] MEDS ORDERED: Nitroglycerin 0.4 MG Tab.SL ONE (20:41)
[2021-06-04] MEDS ORDERED: Aspirin 81 MG Tab.Chew ONE (20:41)
--- NOTE | 2021-06-04 20:43 | CR ---
INDICATION: Left upper extremity weakness. Code stroke. COMPARISON: 04/27/2021 FINDINGS: An erect single view of the chest was obtained at 20 18 hours. The lungs remain clear. No focal or diffuse infiltrates are present. The heart remains normal in size. The mediastinum is normal in appearance. The osseous structures are normal in appearance for the patient`s age. IMPRESSION: Normal chest single view. Dictated by José Chávez MD @ 06/04/2021 8:40:53 PM (Electronically Signed)
[2021-06-04 21:03] LABS: CARBON DIOXIDE,CO2 22.8 mmol/L (21.0-32.0); POTASSIUM,K 3.8 mmol/L (3.5-5.1)
[2021-06-04] MEDS ORDERED: Morphine 4 MG/ML Syringe IVPUSH ONE (21:08)
[2021-06-05] MEDS ORDERED: Morphine 2 MG/ML SDV IVPUSH PRN (01:00)
--- NOTE | 2021-06-05 01:03 | PCM.HP.2 ---
H&P History of Present Illness - General Date of Service: 06/05/21 Admit Problem/Dx: Admission Diagnosis/Problem Admission Diagnosis/Problem Chest pain - History of Present Illness Initial Comments - Free Text/Narative: 56 yo female with hypertension, IA, CVA, HLD, DM2, alcohol abuse, asthma who presents to the ED with complaint of chest pain. She reports upper throbbing chest pain. She denies any shortness of breath or weakness. She is irritated at me asking similar questions and is short with answers. Left Shoulder Pain Score (Numeric/FACES): 6 - Related Data Allergies/Adverse Reactions: Allergies Allergy/AdvReac Type Severity Reaction Status Date / Time No Known Allergies Allergy Verified 06/05/21 01:13 Home Medications: Home Meds atorvaSTATin [Lipitor] 40 mg PO BEDTIME 90 Days #30 tab 04/18/18 [Rx] Glimepiride [Amaryl] 2 mg PO DAILY 07/22/18 [History] metFORMIN HCl [Metformin HCl] 500 mg PO BID 06/23/19 [History] Lisinopril/Hydrochlorothiazide [Lisinopril-HCTZ 10-12.5 MG] 10 - 12.5 mg PO DAILY #30 tab 10/15/20 [Rx] Albuterol [Proventil Neb Soln] 2.5 mg NEB Q4HRRT PRN #50 cup 11/02/20 [Rx] Aspirin [Aspirin EC] 81 mg PO DAILY 11/08/20 [History] Fluticasone Propion/Salmeterol [Advair 250-50 Diskus] 1 inh IH BID 03/30/21 [History] Montelukast [Singulair] 10 mg PO BEDTIME 03/30/21 [History] Albuterol Sulfate [Proair Hfa] 1 - 2 inh IH Q4H PRN #1 inh 04/01/21 [Rx] predniSONE [Prednisone] 40 mg PO DAILY 3 Days #6 tablet 04/30/21 [Rx] Past Medical History - Past Health History Medical/Surgical History: Denies Medical/Surgical History HEENT History: Reports: Other (See Below) Other HEENT History: ear infection Cardiovascular History: Reports: CAD, High Cholesterol, Hypertension, IA Respiratory History: Reports: Asthma, Sleep Apnea Gastrointestinal History: Reports: GERD Genitourinary History: Reports: None [employer]ISTANT History: Reports: Other OB/BYN History: 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 Musculoskeletal History: Reports: Other (See Below) Other Musculoskeletal History: ankle fracture - 2014 Neurological History: Reports: TIA Psychiatric History: Reports: None Endocrine/Metabolic History: Reports: Diabetes, Type II Hematologic History: Reports: None Immunologic History: Reports: None Oncologic (Cancer) History: Reports: None Dermatologic History: Reports: None - Infectious Disease History Infectious Disease History: Reports: Chicken Pox, Measles, Mumps - Past Surgical History Head Surgeries/Procedures: Reports: None HEENT Surgical History: Reports: None Cardiovascular Surgical History: Reports: None Respiratory Surgical History: Reports: None GI Surgical History: Reports: None Female Surgical History: Reports: None Endocrine Surgical History: Reports: None Neurological Surgical History: Reports: None Musculoskeletal Surgical History: Reports: Other (See Below) Other Musculoskeletal Surgeries/Procedures:: broke Left ankle Dermatological Surgical History: Reports: None Social & Family History - Family History Family Medical History: No Pertinent Family History Cardiac: Reports: Hypertension, IA Respiratory: Reports: Asthma OBGYN: Reports: Musculoskeletal: Reports: Arthritis Neurological: Reports: CVA Endocrine/Metabolic: Reports: Diabetes, type II - Tobacco Use Tobacco Use Status *Q: Current Some Day Tobacco User Years of Tobacco use: 42 Packs/Tins Daily: 0.5 Used Tobacco, but Quit: No Second Hand Smoke Exposure: Yes - Caffeine Use Caffeine Use: Reports: Soda - Alcohol Use Days Per Week of Alcohol Use: 3 Number of Drinks Per Day: 3 Total Drinks Per Week: 9 Date of Last Drink: 06/04/21 Time of Last Drink: 16:00 - Recreational Drug Use Recreational Drug Use: No H&P Review of Systems - Review of Systems: Review Of Systems: Comprehensive ROS is negative, except as noted in HPI. Exam - Exam Exam: See Below - Vital Signs Vital Signs: Last Vital Signs Temp 36.8 C 06/04/21 23:10 Pulse 97 06/04/21 23:10 Resp 19 06/04/21 23:10 BP 154/70 H 06/04/21 23:10 Pulse Ox 94 L 06/04/21 23:10 Weight: 263.9 kg - Exam General: Alert, Oriented HEENT: Mucosa Moist & [place] Neck: Supple Lungs: Clear to Auscultation, Normal Respiratory Effort Cardiovascular: Regular Rate, Regular Rhythm GI/Abdominal Exam: Normal Bowel Sounds, Soft, Non-Tender Extremities: Non-Tender, No Pedal Edema Skin: Warm, Dry, Intact - Patient Data Lab Results Last 24 hrs: Laboratory Results - last 24 hr 06/04/21 06/04/21 06/04/21 Range/Units 20:36 20:36 20:36 WBC 4.81 (4.0-11.0) K/uL RBC 3.99 L (4.30-5.90) M/uL Hgb 11.8 L (12.0-16.0) g/dL Hct 35.9 L (36.0-46.0) % MCV 90.0 (80.0-98.0) fL MCH 29.6 (27.0-32.0) pg MCHC 32.9 (31.0-37.0) g/dL RDW Std Deviation 50.4 (28.0-62.0) fl RDW Coeff of Jeannette 16 H (11.0-15.0) % Plt Count 209 (150-400) K/uL MPV 10.20 (7.40-12.00) fL Neut % (Auto) 56.3 (48.0-80.0) % Lymph % (Auto) 30.8 (16.0-40.0) % [place] % (Auto) 9.4 (0.0-15.0) % Eos % (Auto) 3.3 (0.0-7.0) % Baso % (Auto) 0.2 (0.0-1.5) % Neut # (Auto) 2.7 (1.4-5.7) K/uL Lymph # (Auto) 1.5 (0.6-2.4) K/uL [place] # (Auto) 0.5 (0.0-0.8) K/uL Eos # (Auto) 0.2 (0.0-0.7) K/uL Baso # (Auto) 0.0 (0.0-0.1) K/uL Nucleated RBC % 0.0 /100WBC Nucleated RBCs # 0 K/uL INR 1.00 Sodium 137 (136-145) mmol/L Potassium 3.8 (3.5-5.1) mmol/L Chloride 98 (98-107) mmol/L Carbon Dioxide 22.8 (21.0-32.0) mmol/L BUN 11 (7.0-18.0) mg/dL Creatinine 1.2 H (0.6-1.0) mg/dL Est Cr Clr Drug Dosing 49.69 mL/min Estimated GFR (MDRD) 55.9 ml/min Glucose 118 H (74-106) mg/dL POC Glucose (70-99) mg/dL Calcium 9.7 (8.5-10.1) mg/dL Phosphorus 2.3 L (2.6-4.7) mg/dL Magnesium 1.7 L (1.8-2.4) mg/dL Total Bilirubin 0.4 (0.2-1.0) mg/dL AST 33 (15-37) IU/L ALT 32 (14-63) IU/L Alkaline Phosphatase 68 (46-116) U/L Troponin I (0.000-0.056) ng/mL B-Natriuretic Peptide (<100) PG/ML Total Protein 7.3 (6.4-8.2) g/dL Albumin 3.7 (3.4-5.0) g/dL Globulin 3.6 (2.6-4.0) g/dL Albumin/Globulin Ratio 1.0 (0.9-1.6) SARS-CoV-2 RNA ([place]) (NEGATIVE) 06/04/21 06/04/21 06/04/21 Range/Units 20:36 20:36 20:44 WBC (4.0-11.0) K/uL RBC (4.30-5.90) M/uL Hgb (12.0-16.0) g/dL Hct (36.0-46.0) % MCV (80.0-98.0) fL MCH (27.0-32.0) pg MCHC (31.0-37.0) g/dL RDW Std Deviation (28.0-62.0) fl RDW Coeff of Jeannette (11.0-15.0) % Plt Count (150-400) K/uL MPV (7.40-12.00) fL Neut % (Auto) (48.0-80.0) % Lymph % (Auto) (16.0-40.0) % [place] % (Auto) (0.0-15.0) % Eos % (Auto) (0.0-7.0) % Baso % (Auto) (0.0-1.5) % Neut # (Auto) (1.4-5.7) K/uL Lymph # (Auto) (0.6-2.4) K/uL [place] # (Auto) (0.0-0.8) K/uL Eos # (Auto) (0.0-0.7) K/uL Baso # (Auto) (0.0-0.1) K/uL Nucleated RBC % /100WBC Nucleated RBCs # K/uL INR Sodium (136-145) mmol/L Potassium (3.5-5.1) mmol/L Chloride (98-107) mmol/L Carbon Dioxide (21.0-32.0) mmol/L BUN (7.0-18.0) mg/dL Creatinine (0.6-1.0) mg/dL Est Cr Clr Drug Dosing mL/min Estimated GFR (MDRD) ml/min Glucose (74-106) mg/dL POC Glucose (70-99) mg/dL Calcium (8.5-10.1) mg/dL Phosphorus (2.6-4.7) mg/dL Magnesium (1.8-2.4) mg/dL Total Bilirubin (0.2-1.0) mg/dL AST (15-37) IU/L ALT (14-63) IU/L Alkaline Phosphatase (46-116) U/L Troponin I < 0.050 (0.000-0.056) ng/mL B-Natriuretic Peptide 6 (<100) PG/ML Total Protein (6.4-8.2) g/dL Albumin (3.4-5.0) g/dL Globulin (2.6-4.0) g/dL Albumin/Globulin Ratio (0.9-1.6) SARS-CoV-2 RNA ([place]) NEGATIVE (NEGATIVE) 06/04/21 06/04/21 Range/Units 20:49 22:27 WBC (4.0-11.0) K/uL RBC (4.30-5.90) M/uL Hgb (12.0-16.0) g/dL Hct (36.0-46.0) % MCV (80.0-98.0) fL MCH (27.0-32.0) pg MCHC (31.0-37.0) g/dL RDW Std Deviation (28.0-62.0) fl RDW Coeff of Jeannette (11.0-15.0) % Plt Count (150-400) K/uL MPV (7.40-12.00) fL Neut % (Auto) (48.0-80.0) % Lymph % (Auto) (16.0-40.0) % [place] % (Auto) (0.0-15.0) % Eos % (Auto) (0.0-7.0) % Baso % (Auto) (0.0-1.5) % Neut # (Auto) (1.4-5.7) K/uL Lymph # (Auto) (0.6-2.4) K/uL [place] # (Auto) (0.0-0.8) K/uL Eos # (Auto) (0.0-0.7) K/uL Baso # (Auto) (0.0-0.1) K/uL Nucleated RBC % /100WBC Nucleated RBCs # K/uL INR Sodium (136-145) mmol/L Potassium (3.5-5.1) mmol/L Chloride (98-107) mmol/L Carbon Dioxide (21.0-32.0) mmol/L BUN (7.0-18.0) mg/dL Creatinine (0.6-1.0) mg/dL Est Cr Clr Drug Dosing mL/min Estimated GFR (MDRD) ml/min Glucose (74-106) mg/dL POC Glucose 115 H 116 H (70-99) mg/dL Calcium (8.5-10.1) mg/dL Phosphorus (2.6-4.7) mg/dL Magnesium (1.8-2.4) mg/dL Total Bilirubin (0.2-1.0) mg/dL AST (15-37) IU/L ALT (14-63) IU/L Alkaline Phosphatase (46-116) U/L Troponin I (0.000-0.056) ng/mL B-Natriuretic Peptide (<100) PG/ML Total Protein (6.4-8.2) g/dL Albumin (3.4-5.0) g/dL Globulin (2.6-4.0) g/dL Albumin/Globulin Ratio (0.9-1.6) SARS-CoV-2 RNA ([place]) (NEGATIVE) Result Diagrams: 06/04/21 20:36 06/04/21 20:36 Sepsis Event Note - Evaluation Sepsis Screening Result: No Definite Risk - Focused Exam Vital Signs: Vital Signs Temp Pulse Resp BP BP BP Pulse Ox 06/04/21 23:10 36.8 C 97 19 154/70 H 94 L 06/04/21 22:33 106 H 14 155/80 H 95 06/04/21 21:21 99 14 119/53 L 99 06/04/21 20:46 140/85 06/04/21 20:42 100 20 130/86 100 06/04/21 19:51 37.1 C 98 20 148/87 H 97 - Problem List (1) Atypical chest pain SNOMED Code(s): 345855129 ICD Code: R07.89 - OTHER CHEST PAIN Status: Acute Current Visit: No (2) Chest pain SNOMED Code(s): 67134478 ICD Code: R07.9 - CHEST PAIN, UNSPECIFIED Status: Acute Current Visit: Yes Qualifiers: Chest pain type: unspecified Qualified Code(s): R07.9 - Chest pain, unspecified Problem List Initiated/Reviewed/Updated: Yes Orders Last 24hrs: Active Orders 24 hr Category Date Time Status Patient Status [ADT] Routine ADT 06/04/21 21:12 Active Antiembolic Devices [RC] PER UNIT ROUTINE Care 06/05/21 01:02 Ordered Cardiac Monitoring [RC] . DIRECTED Care 06/04/21 19:42 Active Oxygen Therapy [RC] PRN Care 06/05/21 01:01 Ordered Pulse Oximetry [RC] ASDIRECTED Care 06/04/21 19:42 Active RT Aerosol Therapy [RC] ASDIRECTED Care 06/04/21 19:46 Active RT Aerosol Therapy [RC] ASDIRECTED Care 06/05/21 01:02 Ordered Up ad Emperatriz [RC] ASDIRECTED Care 06/05/21 01:01 Ordered VTE/DVT Education [RC] PER UNIT ROUTINE Care 06/05/21 01:01 Ordered Vital Signs [RC] Q4H Care 06/05/21 01:01 Ordered [place] [employer] Diet [DIET] Diet 06/05/21 Breakfast Ordered TROPONIN I [CHEM] Q6H Lab 06/05/21 04:28 Ordered TROPONIN I [CHEM] Q6H Lab 06/05/21 10:28 Ordered UA W/LETICIA RFLX IF INDICATED [URIN] Stat Lab 06/04/21 19:44 Ordered Albuterol Med 06/05/21 01:00 Ordered 2.5 mg NEB Q4HRRT Albuterol/Ipratropium [DuoNeb 3.0-0.5 MG/3 ML] Med 06/05/21 06:00 Ordered 3 ml NEB Q6HRRT Lisinopril/Hydrochlorothiazide [Lisinopril-HCTZ 10-12.5 Med 06/05/21 09:00 Ordered MG] 10 - 12.5 mg PO DAILY Montelukast [Singulair] Med 06/05/21 21:00 Ordered 10 mg PO BEDTIME Morphine Med 06/05/21 01:00 Ordered 2 mg IVPUSH Q3H PRN Nitroglycerin [Nitrostat] Med 06/04/21 20:40 Active 0.4 mg SL Q5M PRN Sodium Chloride 0.9% [Saline Flush] Med 06/04/21 19:42 Active 10 ml FLUSH ASDIRECTED PRN Sodium Chloride 0.9% [Saline Flush] Med 06/04/21 19:42 Active 2.5 ml FLUSH ASDIRECTED PRN atorvaSTATin [Lipitor] Med 06/05/21 21:00 Ordered 40 mg PO BEDTIME Saline Lock Insert [OM.PC] Stat Oth 06/04/21 19:42 Ordered Sequential Compression Device [OM.PC] Per Unit Routine Oth 06/05/21 01:01 Ordered Resuscitation Status Routine Resus Stat 06/05/21 01:01 Ordered Medication Orders Atorvastatin Calcium (Atorvastatin 40 Mg Tab) 40 mg PO BEDTIME MARCELO Lisinopril/HCTZ (Lisinopril/Hydrochlorothiazide 10-12.5 Mg Tab) tab PO DAILY MARCELO Montelukast Sodium (Montelukast 10 Mg Tab) 10 mg PO BEDTIME MARCELO Morphine Sulfate (Morphine 2 Mg/Ml Sdv) 2 mg IVPUSH Q3H PRN PRN Reason: pain Nitroglycerin (Nitroglycerin 0.4 Mg Tab.Sl) 0.4 mg SL Q5M PRN PRN Reason: Chest Pain Last Admin: 06/04/21 20:46 Dose: 0.4 mg Documented by: JESUS Non-Formulary Medication (Albuterol) 2.5 mg NEB Q4HRRT MARCELO Sodium Chloride (Sodium Chloride 0.9% 10 Ml Syringe) 10 ml FLUSH ASDIRECTED PRN PRN Reason: Keep Vein Open Sodium Chloride (Sodium Chloride 0.9% 2.5 Ml Syringe) 2.5 ml FLUSH ASDIRECTED PRN PRN Reason: Keep Vein Open Assessment/Plan Comment:: 56 yo female admitted with chest pain. We will monitor overning on telemetry and trend cardiac enzymes.
[2021-06-05] MEDS ORDERED: Lisinopril 10 MG Tab PO ONE (01:05)
[2021-06-05] MEDS: Morphine 2 MG/ML SYRINGE IVPUSH PRN ×5 (01:32→18:54)
[2021-06-05] MEDS: Albuterol 0.5% 5 MG/ML Neb Soln 20 ML Bottle INH SCH ×3 (01:38→06:39)
[2021-06-05] MEDS ORDERED: Glucagon,Human Recombinant 1 MG Vial IM PRN (05:00)
[2021-06-05] MEDS ORDERED: 50% Dextrose in Water 50 ML Syringe IVPUSH PRN (05:00)
[2021-06-05] MEDS: Insulin Aspart 100 Units/ML 3 ML Pen SUBCUT SCH ×5 (05:30→17:13)
[2021-06-05] MEDS: Albuterol/Ipratropium 3.0-0.5 MG/3 ML Neb Soln NEB SCH ×3 (06:37→16:59)
[2021-06-05] MEDS ORDERED: Lisinopril/Hydrochlorothiazide 10-12.5 MG Tab PO SCH (09:00)
[2021-06-05] MEDS: Albuterol 0.083% 2.5 MG/3 ML Neb Soln INH SCH ×2 (09:52→17:51)
--- NOTE | 2021-06-05 09:56 | PCM.PN ---
- General Info Date of Service: 06/05/21 - Review of Systems Systems Review Comment:: patient admits to shortness of breath for several days, reports left arm weakness from prior stroke but is tingling today - Patient Data Vitals - Most Recent: Last Vital Signs Temp 36.8 C 06/05/21 08:00 Pulse 91 06/05/21 08:00 Resp 18 06/05/21 08:00 BP 175/82 H 06/05/21 08:00 Pulse Ox 94 L 06/05/21 08:00 Weight - Most Recent: 263.9 kg Lab Results Last 24 Hours: Laboratory Results - last 24 hr 06/04/21 06/04/21 06/04/21 Range/Units 20:36 20:36 20:36 WBC 4.81 (4.0-11.0) K/uL RBC 3.99 L (4.30-5.90) M/uL Hgb 11.8 L (12.0-16.0) g/dL Hct 35.9 L (36.0-46.0) % MCV 90.0 (80.0-98.0) fL MCH 29.6 (27.0-32.0) pg MCHC 32.9 (31.0-37.0) g/dL RDW Std Deviation 50.4 (28.0-62.0) fl RDW Coeff of Jeannette 16 H (11.0-15.0) % Plt Count 209 (150-400) K/uL MPV 10.20 (7.40-12.00) fL Neut % (Auto) 56.3 (48.0-80.0) % Lymph % (Auto) 30.8 (16.0-40.0) % [place] % (Auto) 9.4 (0.0-15.0) % Eos % (Auto) 3.3 (0.0-7.0) % Baso % (Auto) 0.2 (0.0-1.5) % Neut # (Auto) 2.7 (1.4-5.7) K/uL Lymph # (Auto) 1.5 (0.6-2.4) K/uL [place] # (Auto) 0.5 (0.0-0.8) K/uL Eos # (Auto) 0.2 (0.0-0.7) K/uL Baso # (Auto) 0.0 (0.0-0.1) K/uL Nucleated RBC % 0.0 /100WBC Nucleated RBCs # 0 K/uL INR 1.00 Sodium 137 (136-145) mmol/L Potassium 3.8 (3.5-5.1) mmol/L Chloride 98 (98-107) mmol/L Carbon Dioxide 22.8 (21.0-32.0) mmol/L BUN 11 (7.0-18.0) mg/dL Creatinine 1.2 H (0.6-1.0) mg/dL Est Cr Clr Drug Dosing 49.69 mL/min Estimated GFR (MDRD) 55.9 ml/min Glucose 118 H (74-106) mg/dL POC Glucose (70-99) mg/dL Calcium 9.7 (8.5-10.1) mg/dL Phosphorus 2.3 L (2.6-4.7) mg/dL Magnesium 1.7 L (1.8-2.4) mg/dL Total Bilirubin 0.4 (0.2-1.0) mg/dL AST 33 (15-37) IU/L ALT 32 (14-63) IU/L Alkaline Phosphatase 68 (46-116) U/L Troponin I (0.000-0.056) ng/mL B-Natriuretic Peptide (<100) PG/ML Total Protein 7.3 (6.4-8.2) g/dL Albumin 3.7 (3.4-5.0) g/dL Globulin 3.6 (2.6-4.0) g/dL Albumin/Globulin Ratio 1.0 (0.9-1.6) SARS-CoV-2 RNA ([place]) (NEGATIVE) 06/04/21 06/04/21 06/04/21 Range/Units 20:36 20:36 20:44 WBC (4.0-11.0) K/uL RBC (4.30-5.90) M/uL Hgb (12.0-16.0) g/dL Hct (36.0-46.0) % MCV (80.0-98.0) fL MCH (27.0-32.0) pg MCHC (31.0-37.0) g/dL RDW Std Deviation (28.0-62.0) fl RDW Coeff of Jeannette (11.0-15.0) % Plt Count (150-400) K/uL MPV (7.40-12.00) fL Neut % (Auto) (48.0-80.0) % Lymph % (Auto) (16.0-40.0) % [place] % (Auto) (0.0-15.0) % Eos % (Auto) (0.0-7.0) % Baso % (Auto) (0.0-1.5) % Neut # (Auto) (1.4-5.7) K/uL Lymph # (Auto) (0.6-2.4) K/uL [place] # (Auto) (0.0-0.8) K/uL Eos # (Auto) (0.0-0.7) K/uL Baso # (Auto) (0.0-0.1) K/uL Nucleated RBC % /100WBC Nucleated RBCs # K/uL INR Sodium (136-145) mmol/L Potassium (3.5-5.1) mmol/L Chloride (98-107) mmol/L Carbon Dioxide (21.0-32.0) mmol/L BUN (7.0-18.0) mg/dL Creatinine (0.6-1.0) mg/dL Est Cr Clr Drug Dosing mL/min Estimated GFR (MDRD) ml/min Glucose (74-106) mg/dL POC Glucose (70-99) mg/dL Calcium (8.5-10.1) mg/dL Phosphorus (2.6-4.7) mg/dL Magnesium (1.8-2.4) mg/dL Total Bilirubin (0.2-1.0) mg/dL AST (15-37) IU/L ALT (14-63) IU/L Alkaline Phosphatase (46-116) U/L Troponin I < 0.050 (0.000-0.056) ng/mL B-Natriuretic Peptide 6 (<100) PG/ML Total Protein (6.4-8.2) g/dL Albumin (3.4-5.0) g/dL Globulin (2.6-4.0) g/dL Albumin/Globulin Ratio (0.9-1.6) SARS-CoV-2 RNA ([place]) NEGATIVE (NEGATIVE) 06/04/21 06/04/21 06/05/21 Range/Units 20:49 22:27 02:51 WBC (4.0-11.0) K/uL RBC (4.30-5.90) M/uL Hgb (12.0-16.0) g/dL Hct (36.0-46.0) % MCV (80.0-98.0) fL MCH (27.0-32.0) pg MCHC (31.0-37.0) g/dL RDW Std Deviation (28.0-62.0) fl RDW Coeff of Jeannette (11.0-15.0) % Plt Count (150-400) K/uL MPV (7.40-12.00) fL Neut % (Auto) (48.0-80.0) % Lymph % (Auto) (16.0-40.0) % [place] % (Auto) (0.0-15.0) % Eos % (Auto) (0.0-7.0) % Baso % (Auto) (0.0-1.5) % Neut # (Auto) (1.4-5.7) K/uL Lymph # (Auto) (0.6-2.4) K/uL [place] # (Auto) (0.0-0.8) K/uL Eos # (Auto) (0.0-0.7) K/uL Baso # (Auto) (0.0-0.1) K/uL Nucleated RBC % /100WBC Nucleated RBCs # K/uL INR Sodium (136-145) mmol/L Potassium (3.5-5.1) mmol/L Chloride (98-107) mmol/L Carbon Dioxide (21.0-32.0) mmol/L BUN (7.0-18.0) mg/dL Creatinine (0.6-1.0) mg/dL Est Cr Clr Drug Dosing mL/min Estimated GFR (MDRD) ml/min Glucose (74-106) mg/dL POC Glucose 115 H 116 H 345 H (70-99) mg/dL Calcium (8.5-10.1) mg/dL Phosphorus (2.6-4.7) mg/dL Magnesium (1.8-2.4) mg/dL Total Bilirubin (0.2-1.0) mg/dL AST (15-37) IU/L ALT (14-63) IU/L Alkaline Phosphatase (46-116) U/L Troponin I (0.000-0.056) ng/mL B-Natriuretic Peptide (<100) PG/ML Total Protein (6.4-8.2) g/dL Albumin (3.4-5.0) g/dL Globulin (2.6-4.0) g/dL Albumin/Globulin Ratio (0.9-1.6) SARS-CoV-2 RNA ([place]) (NEGATIVE) 06/05/21 06/05/21 06/05/21 Range/Units 04:30 04:58 07:35 WBC (4.0-11.0) K/uL RBC (4.30-5.90) M/uL Hgb (12.0-16.0) g/dL Hct (36.0-46.0) % MCV (80.0-98.0) fL MCH (27.0-32.0) pg MCHC (31.0-37.0) g/dL RDW Std Deviation (28.0-62.0) fl RDW Coeff of Jeannette (11.0-15.0) % Plt Count (150-400) K/uL MPV (7.40-12.00) fL Neut % (Auto) (48.0-80.0) % Lymph % (Auto) (16.0-40.0) % [place] % (Auto) (0.0-15.0) % Eos % (Auto) (0.0-7.0) % Baso % (Auto) (0.0-1.5) % Neut # (Auto) (1.4-5.7) K/uL Lymph # (Auto) (0.6-2.4) K/uL [place] # (Auto) (0.0-0.8) K/uL Eos # (Auto) (0.0-0.7) K/uL Baso # (Auto) (0.0-0.1) K/uL Nucleated RBC % /100WBC Nucleated RBCs # K/uL INR Sodium (136-145) mmol/L Potassium (3.5-5.1) mmol/L Chloride (98-107) mmol/L Carbon Dioxide (21.0-32.0) mmol/L BUN (7.0-18.0) mg/dL Creatinine (0.6-1.0) mg/dL Est Cr Clr Drug Dosing mL/min Estimated GFR (MDRD) ml/min Glucose (74-106) mg/dL POC Glucose 369 H 399 H (70-99) mg/dL Calcium (8.5-10.1) mg/dL Phosphorus (2.6-4.7) mg/dL Magnesium (1.8-2.4) mg/dL Total Bilirubin (0.2-1.0) mg/dL AST (15-37) IU/L ALT (14-63) IU/L Alkaline Phosphatase (46-116) U/L Troponin I < 0.050 (0.000-0.056) ng/mL B-Natriuretic Peptide (<100) PG/ML Total Protein (6.4-8.2) g/dL Albumin (3.4-5.0) g/dL Globulin (2.6-4.0) g/dL Albumin/Globulin Ratio (0.9-1.6) SARS-CoV-2 RNA ([place]) (NEGATIVE) Med Orders - Current: Current Medications Albuterol (Albuterol 0.083% 2.5 Mg/3 Ml Neb Soln) 2.5 mg INH Q4HRRT MARCELO Albuterol/Ipratropium (Albuterol/Ipratropium 3.0-0.5 Mg/3 Ml Neb Soln) 3 ml NEB Q6HRRT [facility] Last Admin: 06/05/21 06:37 Dose: 3 ml Documented by: Atorvastatin Calcium (Atorvastatin 40 Mg Tab) 40 mg PO BEDTIME MARCELO Dextrose/Water (50% Dextrose In Water 50 Ml Syringe) 50 ml IVPUSH ASDIRECTED PRN PRN Reason: Hypoglycemia Glucagon (Glucagon,Human Recombinant 1 Mg Vial) 1 mg IM ASDIRECTED PRN PRN Reason: Hypoglycemia Insulin Aspart (Insulin Aspart 100 Units/Ml 3 Ml Pen) 0 unit SUBCUT TIDAC [facility]; Protocol Last Admin: 06/05/21 07:43 Dose: 5 units Documented by: Montelukast Sodium (Montelukast 10 Mg Tab) 10 mg PO BEDTIME MARCELO Morphine Sulfate (Morphine 2 Mg/Ml Syringe) 2 mg IVPUSH Q3H PRN PRN Reason: pain Last Admin: 06/05/21 09:04 Dose: 1 mg Documented by: Nitroglycerin (Nitroglycerin 0.4 Mg Tab.Sl) 0.4 mg SL Q5M PRN PRN Reason: Chest Pain Last Admin: 06/04/21 20:46 Dose: 0.4 mg Documented by: Sodium Chloride (Sodium Chloride 0.9% 10 Ml Syringe) 10 ml FLUSH ASDIRECTED PRN PRN Reason: Keep Vein Open Sodium Chloride (Sodium Chloride 0.9% 2.5 Ml Syringe) 2.5 ml FLUSH ASDIRECTED PRN PRN Reason: Keep Vein Open Discontinued Medications Albuterol (Albuterol 0.5% 5 Mg/Ml Neb Soln 20 Ml Bottle) 2.5 mg INH Q4HRRT MARCELO Last Admin: 06/05/21 06:39 Dose: 2.5 mg Documented by: Albuterol/Ipratropium (Albuterol/Ipratropium 3.0-0.5 Mg/3 Ml Neb Soln) 3 ml NEB ONETIME ONE Stop: 06/04/21 19:47 Last Admin: 06/04/21 20:34 Dose: 3 ml Documented by: Aspirin (Aspirin 81 Mg Tab.Chew) 324 mg PO ONETIME ONE Stop: 06/04/21 20:41 Last Admin: 06/04/21 20:42 Dose: 324 mg Documented by: Aspirin (Aspirin 81 Mg Tab.Chew) Confirm Administered Dose 324 mg .ROUTE .STK- MED ONE Stop: 06/04/21 20:42 Last Admin: 06/04/21 20:50 Dose: Not Given Documented by: Dextrose/Water (50% Dextrose In Water 50 Ml Syringe) 50 ml IVPUSH ONETIME ONE Stop: 06/04/21 19:48 Last Admin: 06/04/21 20:57 Dose: 50 ml Documented by: Lisinopril/HCTZ (Lisinopril/Hydrochlorothiazide 10-12.5 Mg Tab) 1 tab PO DAILY MARCELO Lactated Ringer's (Ringers, Lactated) 1,000 mls @ 999 mls/hr IV .BOLUS ONE Stop: 06/04/21 20:42 Last Admin: 06/04/21 20:34 Dose: 999 mls/hr Documented by: Iopamidol (Iopamidol 755 Mg/Ml 100 Ml Bottle) 100 ml IVPUSH ONETIME ONE Stop: 06/04/21 20:17 Last Admin: 06/04/21 20:17 Dose: 100 ml Documented by: Lisinopril (Lisinopril 10 Mg Tab) 10 mg PO ONETIME ONE Stop: 06/05/21 01:06 Last Admin: 06/05/21 03:43 Dose: Not Given Documented by: Methylprednisolone Sodium Succinate (Methylprednisolone Sodium Succinate 125 Mg/2 Ml Sdv) 125 mg IVPUSH ONETIME ONE Stop: 06/04/21 19:43 Last Admin: 06/04/21 20:34 Dose: 125 mg Documented by: Morphine Sulfate (Morphine 4 Mg/Ml Syringe) 4 mg IVPUSH ONETIME ONE Stop: 06/04/21 21:09 Last Admin: 06/04/21 21:20 Dose: 4 mg Documented by: Morphine Sulfate (Morphine 2 Mg/Ml Sdv) 2 mg IVPUSH Q3H PRN PRN Reason: pain Nitroglycerin (Nitroglycerin 0.4 Mg Tab.Sl) Confirm Administered Dose 1.2 mg .ROUTE .STK-MED ONE Stop: 06/04/21 20:42 Last Admin: 06/04/21 20:50 Dose: Not Given Documented by: - Exam General: Alert, Oriented Neck: Supple Lungs: Normal Respiratory Effort, Wheezing Cardiovascular: Regular Rate, Regular Rhythm GI/Abdominal Exam: Normal Bowel Sounds, Soft, Non-Tender Extremities: Non-Tender, No Pedal Edema Neurological: No New Focal Deficit, Normal Speech, Normal Tone, Strength Equal Bilateral, Sensation Intact - Patient Data Lab Results Last 24 hrs: Laboratory Results - last 24 hr 06/04/21 06/04/21 06/04/21 Range/Units 20:36 20:36 20:36 WBC 4.81 (4.0-11.0) K/uL RBC 3.99 L (4.30-5.90) M/uL Hgb 11.8 L (12.0-16.0) g/dL Hct 35.9 L (36.0-46.0) % MCV 90.0 (80.0-98.0) fL MCH 29.6 (27.0-32.0) pg MCHC 32.9 (31.0-37.0) g/dL RDW Std Deviation 50.4 (28.0-62.0) fl RDW Coeff of Jeannette 16 H (11.0-15.0) % Plt Count 209 (150-400) K/uL MPV 10.20 (7.40-12.00) fL Neut % (Auto) 56.3 (48.0-80.0) % Lymph % (Auto) 30.8 (16.0-40.0) % [place] % (Auto) 9.4 (0.0-15.0) % Eos % (Auto) 3.3 (0.0-7.0) % Baso % (Auto) 0.2 (0.0-1.5) % Neut # (Auto) 2.7 (1.4-5.7) K/uL Lymph # (Auto) 1.5 (0.6-2.4) K/uL [place] # (Auto) 0.5 (0.0-0.8) K/uL Eos # (Auto) 0.2 (0.0-0.7) K/uL Baso # (Auto) 0.0 (0.0-0.1) K/uL Nucleated RBC % 0.0 /100WBC Nucleated RBCs # 0 K/uL INR 1.00 Sodium 137 (136-145) mmol/L Potassium 3.8 (3.5-5.1) mmol/L Chloride 98 (98-107) mmol/L Carbon Dioxide 22.8 (21.0-32.0) mmol/L BUN 11 (7.0-18.0) mg/dL Creatinine 1.2 H (0.6-1.0) mg/dL Est Cr Clr Drug Dosing 49.69 mL/min Estimated GFR (MDRD) 55.9 ml/min Glucose 118 H (74-106) mg/dL POC Glucose (70-99) mg/dL Calcium 9.7 (8.5-10.1) mg/dL Phosphorus 2.3 L (2.6-4.7) mg/dL Magnesium 1.7 L (1.8-2.4) mg/dL Total Bilirubin 0.4 (0.2-1.0) mg/dL AST 33 (15-37) IU/L ALT 32 (14-63) IU/L Alkaline Phosphatase 68 (46-116) U/L Troponin I (0.000-0.056) ng/mL B-Natriuretic Peptide (<100) PG/ML Total Protein 7.3 (6.4-8.2) g/dL Albumin 3.7 (3.4-5.0) g/dL Globulin 3.6 (2.6-4.0) g/dL Albumin/Globulin Ratio 1.0 (0.9-1.6) SARS-CoV-2 RNA ([place]) (NEGATIVE) 06/04/21 06/04/21 06/04/21 Range/Units 20:36 20:36 20:44 WBC (4.0-11.0) K/uL RBC (4.30-5.90) M/uL Hgb (12.0-16.0) g/dL Hct (36.0-46.0) % MCV (80.0-98.0) fL MCH (27.0-32.0) pg MCHC (31.0-37.0) g/dL RDW Std Deviation (28.0-62.0) fl RDW Coeff of Jeannette (11.0-15.0) % Plt Count (150-400) K/uL MPV (7.40-12.00) fL Neut % (Auto) (48.0-80.0) % Lymph % (Auto) (16.0-40.0) % [place] % (Auto) (0.0-15.0) % Eos % (Auto) (0.0-7.0) % Baso % (Auto) (0.0-1.5) % Neut # (Auto) (1.4-5.7) K/uL Lymph # (Auto) (0.6-2.4) K/uL [place] # (Auto) (0.0-0.8) K/uL Eos # (Auto) (0.0-0.7) K/uL Baso # (Auto) (0.0-0.1) K/uL Nucleated RBC % /100WBC Nucleated RBCs # K/uL INR Sodium (136-145) mmol/L Potassium (3.5-5.1) mmol/L Chloride (98-107) mmol/L Carbon Dioxide (21.0-32.0) mmol/L BUN (7.0-18.0) mg/dL Creatinine (0.6-1.0) mg/dL Est Cr Clr Drug Dosing mL/min Estimated GFR (MDRD) ml/min Glucose (74-106) mg/dL POC Glucose (70-99) mg/dL Calcium (8.5-10.1) mg/dL Phosphorus (2.6-4.7) mg/dL Magnesium (1.8-2.4) mg/dL Total Bilirubin (0.2-1.0) mg/dL AST (15-37) IU/L ALT (14-63) IU/L Alkaline Phosphatase (46-116) U/L Troponin I < 0.050 (0.000-0.056) ng/mL B-Natriuretic Peptide 6 (<100) PG/ML Total Protein (6.4-8.2) g/dL Albumin (3.4-5.0) g/dL Globulin (2.6-4.0) g/dL Albumin/Globulin Ratio (0.9-1.6) SARS-CoV-2 RNA ([place]) NEGATIVE (NEGATIVE) 06/04/21 06/04/21 06/05/21 Range/Units 20:49 22:27 02:51 WBC (4.0-11.0) K/uL RBC (4.30-5.90) M/uL Hgb (12.0-16.0) g/dL Hct (36.0-46.0) % MCV (80.0-98.0) fL MCH (27.0-32.0) pg MCHC (31.0-37.0) g/dL RDW Std Deviation (28.0-62.0) fl RDW Coeff of Jeannette (11.0-15.0) % Plt Count (150-400) K/uL MPV (7.40-12.00) fL Neut % (Auto) (48.0-80.0) % Lymph % (Auto) (16.0-40.0) % [place] % (Auto) (0.0-15.0) % Eos % (Auto) (0.0-7.0) % Baso % (Auto) (0.0-1.5) % Neut # (Auto) (1.4-5.7) K/uL Lymph # (Auto) (0.6-2.4) K/uL [place] # (Auto) (0.0-0.8) K/uL Eos # (Auto) (0.0-0.7) K/uL Baso # (Auto) (0.0-0.1) K/uL Nucleated RBC % /100WBC Nucleated RBCs # K/uL INR Sodium (136-145) mmol/L Potassium (3.5-5.1) mmol/L Chloride (98-107) mmol/L Carbon Dioxide (21.0-32.0) mmol/L BUN (7.0-18.0) mg/dL Creatinine (0.6-1.0) mg/dL Est Cr Clr Drug Dosing mL/min Estimated GFR (MDRD) ml/min Glucose (74-106) mg/dL POC Glucose 115 H 116 H 345 H (70-99) mg/dL Calcium (8.5-10.1) mg/dL Phosphorus (2.6-4.7) mg/dL Magnesium (1.8-2.4) mg/dL Total Bilirubin (0.2-1.0) mg/dL AST (15-37) IU/L ALT (14-63) IU/L Alkaline Phosphatase (46-116) U/L Troponin I (0.000-0.056) ng/mL B-Natriuretic Peptide (<100) PG/ML Total Protein (6.4-8.2) g/dL Albumin (3.4-5.0) g/dL Globulin (2.6-4.0) g/dL Albumin/Globulin Ratio (0.9-1.6) SARS-CoV-2 RNA ([place]) (NEGATIVE) 06/05/21 06/05/21 06/05/21 Range/Units 04:30 04:58 07:35 WBC (4.0-11.0) K/uL RBC (4.30-5.90) M/uL Hgb (12.0-16.0) g/dL Hct (36.0-46.0) % MCV (80.0-98.0) fL MCH (27.0-32.0) pg MCHC (31.0-37.0) g/dL RDW Std Deviation (28.0-62.0) fl RDW Coeff of Jeannette (11.0-15.0) % Plt Count (150-400) K/uL MPV (7.40-12.00) fL Neut % (Auto) (48.0-80.0) % Lymph % (Auto) (16.0-40.0) % [place] % (Auto) (0.0-15.0) % Eos % (Auto) (0.0-7.0) % Baso % (Auto) (0.0-1.5) % Neut # (Auto) (1.4-5.7) K/uL Lymph # (Auto) (0.6-2.4) K/uL [place] # (Auto) (0.0-0.8) K/uL Eos # (Auto) (0.0-0.7) K/uL Baso # (Auto) (0.0-0.1) K/uL Nucleated RBC % /100WBC Nucleated RBCs # K/uL INR Sodium (136-145) mmol/L Potassium (3.5-5.1) mmol/L Chloride (98-107) mmol/L Carbon Dioxide (21.0-32.0) mmol/L BUN (7.0-18.0) mg/dL Creatinine (0.6-1.0) mg/dL Est Cr Clr Drug Dosing mL/min Estimated GFR (MDRD) ml/min Glucose (74-106) mg/dL POC Glucose 369 H 399 H (70-99) mg/dL Calcium (8.5-10.1) mg/dL Phosphorus (2.6-4.7) mg/dL Magnesium (1.8-2.4) mg/dL Total Bilirubin (0.2-1.0) mg/dL AST (15-37) IU/L ALT (14-63) IU/L Alkaline Phosphatase (46-116) U/L Troponin I < 0.050 (0.000-0.056) ng/mL B-Natriuretic Peptide (<100) PG/ML Total Protein (6.4-8.2) g/dL Albumin (3.4-5.0) g/dL Globulin (2.6-4.0) g/dL Albumin/Globulin Ratio (0.9-1.6) SARS-CoV-2 RNA ([place]) (NEGATIVE) Result Diagrams: 06/04/21 20:36 06/04/21 20:36 Sepsis Event Note - Evaluation Sepsis Screening Result: No Definite Risk - Focused Exam Vital Signs: Vital Signs Temp Pulse Resp BP BP Pulse Ox 06/05/21 08:00 36.8 C 91 18 175/82 H 94 L 06/05/21 05:00 37.2 C 93 18 175/90 H 96 06/04/21 23:10 36.8 C 97 19 154/70 H 94 L 06/04/21 22:33 106 H 14 155/80 H 95 - Problem List & Annotations (1) Atypical chest pain SNOMED Code(s): 566039299 Code(s): R07.89 - OTHER CHEST PAIN Status: Acute Current Visit: No (2) Chest pain SNOMED Code(s): 60713005 Code(s): R07.9 - CHEST PAIN, UNSPECIFIED Status: Acute Current Visit: Yes Qualifiers: Chest pain type: unspecified Qualified Code(s): R07.9 - Chest pain, unspecified (3) Asthma exacerbation SNOMED Code(s): 867419041 Code(s): J45.901 - UNSPECIFIED ASTHMA WITH (ACUTE) EXACERBATION Status: Acute Current Visit: Yes - Problem List Review Problem List Initiated/Reviewed/Updated: Yes - My Orders Last 24 Hours: My Active Orders 06/05/21 01:01 Oxygen Therapy [RC] PRN Up ad Emperatriz [RC] ASDIRECTED VTE/DVT Education [RC] PER UNIT ROUTINE Vital Signs [RC] Q4H Sequential Compression Device [OM.PC] Per Unit Routine Resuscitation Status Routine 06/05/21 01:02 Antiembolic Devices [RC] PER UNIT ROUTINE RT Aerosol Therapy [RC] ASDIRECTED 06/05/21 01:03 CPAP Noctural Home [RT BiPAP/CPAP] [RC] ASDIRECTED 06/05/21 01:06 Morphine 2 mg IVPUSH Q3H PRN 06/05/21 01:09 Accu Check [Blood Glucose Check, Bedside] [RC] Q4H 06/05/21 01:10 Neuro Check [RC] Q4HR 06/05/21 05:00 Dextrose 50% in Water 50 ml IVPUSH ASDIRECTED PRN Glucagon,Human Recombinant [GlucaGen] 1 mg IM ASDIRECTED PRN 06/05/21 05:01 Insulin Aspart [NovoLOG] See Protocol SUBCUT TIDAC 06/05/21 06:00 Albuterol/Ipratropium [DuoNeb 3.0-0.5 MG/3 ML] 3 ml NEB Q6HRRT 06/05/21 Breakfast [employer] Diet [DIET] 06/05/21 09:49 Brain w Cont [MR] Routine GLYCOSYLATED HEMOGLOBIN,HGBA1C [CHEM] Routine 06/05/21 10:00 Albuterol [Proventil Neb Soln] 2.5 mg INH Q4HRRT 06/05/21 10:28 TROPONIN I [CHEM] Q6H 06/05/21 21:00 Montelukast [Singulair] 10 mg PO BEDTIME atorvaSTATin [Lipitor] 40 mg PO BEDTIME - Plan Plan:: 56 yo female admitted with chest pain, and shortness of breath. Chest pain: likely due to asthma, will trend cardiac enzymes and monitor on telemetry, will resume antihypertensive medications Asthma exacerbation: duonebs, and solumedrol left arm weakness: may be TIA, will check brain MRI.
[2021-06-05 10:05] LABS: HEMOGLOBIN A1C 5.6 %
[2021-06-05] MEDS: Lisinopril/Hydrochlorothiazide 10-12.5 MG Tab PO SCH (10:32)
[2021-06-05] MEDS: methylPREDNISolone Sodium Succinate 125 MG/2 ML SDV IVPUSH SCH (10:32)
[2021-06-05 11:25] LABS: CARBON DIOXIDE,CO2 26.2 mmol/L (21.0-32.0); POTASSIUM,K 4.8 mmol/L (3.5-5.1)
[2021-06-05] MEDS ORDERED: Gadobenate Dimeglumine 529 MG/ML 20 ML SDV IVPUSH STA (13:11)
--- NOTE | 2021-06-05 13:44 | MR ---
INDICATION: Left arm weakness. TECHNIQUE: Brain MRI with contrast. The following sequences were obtained: Sagittal T1 weighted sequence. DWI and ADC mapping sequences. Axial FLAIR and ALFONSO T2 weighted sequences. SWI sequence. Axial and coronal T1 weighted post-contrast sequences. 20 cc of MultiHance gadolinium based contrast agent was used. COMPARISON: Head CT from 06/04/2021. FINDINGS: No evidence of acute ischemia. No evidence of acute or chronic intracranial blood products. Smooth pachymeningeal enhancement along both anterior to mid cerebral convexities as well as the falx without substantial focal nodularity. Blooming artifact along these regions associated with dural calcifications on the comparison CT. No pathologic intraparenchymal enhancement. Small chronic lacunar infarcts left ventral thalamus and right medial thalamus. Small chronic infarct right paramedian ava. Few small foci of FLAIR hyperintensity scattered within supratentorial white matter typical for chronic microvascular ischemic change. Patchy FLAIR signal abnormality within the brainstem is also compatible with chronic microvascular ischemic change. No hydrocephalus or extra-axial collections. The pituitary gland, parasellar structures and optic chiasm are normal. All the major intracranial vascular structures demonstrate normal flow-related signal. The orbital contents are normal. No calvarial or skull base marrow signal abnormality. No obstructive sinus disease. No extracranial soft tissue findings. IMPRESSION: 1. No acute infarction or other acute intracranial pathology. 2. Smooth pachymeningeal enhancement along both anterior cerebral convexities as well as the anterior falx. Multifocal dural/falcine calcifications are noted on the comparison CT. Nonspecific and could reflect sequela of prior inflammatory process or reactive changes from prior subdural hematoma. 3. Small chronic lacunar infarcts left ventral thalamus and right medial thalamus. Small chronic infarct right paramedian ava. 4. Chronic microvascular ischemic changes most prominently involving the brainstem. Dictated by Hari Armijo MD @ 06/05/2021 1:43:38 PM (Electronically Signed)
[2021-06-05] MEDS ORDERED: Insulin Glargine,Human Rec. Analog 100 Units/ML 3 ML Pen SUBCUT ONE (13:47)
[2021-06-05] MEDS ORDERED: Albuterol 0.083% 2.5 MG/3 ML Neb Soln INH PRN (16:54)
[2021-06-05] MEDS: atorvaSTATin 40 MG Tab PO SCH (21:35)
[2021-06-05] MEDS: Montelukast 10 MG Tab PO SCH (21:35)
[2021-06-05] MEDS: Fluticasone/Salmeterol 250-50 MCG Inhalation Powder 14/Diskus INH SCH (21:35)
[2021-06-06] MEDS: Albuterol/Ipratropium 3.0-0.5 MG/3 ML Neb Soln NEB SCH ×4 (01:01→17:32)
[2021-06-06] MEDS: Morphine 2 MG/ML SYRINGE IVPUSH PRN ×3 (01:03→09:03)
[2021-06-06 06:37] LABS: CARBON DIOXIDE,CO2 29.7 mmol/L (21.0-32.0); POTASSIUM,K 3.7 mmol/L (3.5-5.1)
[2021-06-06] MEDS: methylPREDNISolone Sodium Succinate 125 MG/2 ML SDV IVPUSH SCH (08:55)
[2021-06-06] MEDS: Fluticasone/Salmeterol 250-50 MCG Inhalation Powder 14/Diskus INH SCH ×2 (08:55→20:42)
[2021-06-06] MEDS: Insulin Aspart 100 Units/ML 3 ML Pen SUBCUT SCH ×3 (08:56→16:58)
[2021-06-06] MEDS: Aspirin 81 MG Tab.EC PO SCH (08:56)
[2021-06-06] MEDS: Lisinopril/Hydrochlorothiazide 10-12.5 MG Tab PO SCH (08:56)
--- NOTE | 2021-06-06 12:26 | PCM.PN ---
- General Info Date of Service: 06/06/21 - Review of Systems Systems Review Comment:: reports soreness in shoulder that has been present since admission, made worse with coughing. Patient would like to stay one more night - Patient Data Vitals - Most Recent: Last Vital Signs Temp 36.4 C 06/06/21 12:13 Pulse 70 06/06/21 12:13 Resp 18 06/06/21 12:13 BP 151/64 H 06/06/21 12:13 Pulse Ox 96 06/06/21 12:13 Weight - Most Recent: 107.048 kg I&O - Last 24 Hours: Intake & Output 06/05/21 06/06/21 06/06/21 22:59 06:59 14:59 Intake Total 620 680 Output Total 860 300 Balance -240 380 Lab Results Last 24 Hours: Laboratory Results - last 24 hr 06/05/21 06/05/21 06/05/21 Range/Units 13:35 17:07 21:47 WBC (4.0-11.0) K/uL RBC (4.30-5.90) M/uL Hgb (12.0-16.0) g/dL Hct (36.0-46.0) % MCV (80.0-98.0) fL MCH (27.0-32.0) pg MCHC (31.0-37.0) g/dL RDW Std Deviation (28.0-62.0) fl RDW Coeff of Jeannette (11.0-15.0) % Plt Count (150-400) K/uL MPV (7.40-12.00) fL Neut % (Auto) (48.0-80.0) % Lymph % (Auto) (16.0-40.0) % [place] % (Auto) (0.0-15.0) % Eos % (Auto) (0.0-7.0) % Baso % (Auto) (0.0-1.5) % Neut # (Auto) (1.4-5.7) K/uL Lymph # (Auto) (0.6-2.4) K/uL [place] # (Auto) (0.0-0.8) K/uL Eos # (Auto) (0.0-0.7) K/uL Baso # (Auto) (0.0-0.1) K/uL Nucleated RBC % /100WBC Nucleated RBCs # K/uL Sodium (136-145) mmol/L Potassium (3.5-5.1) mmol/L Chloride (98-107) mmol/L Carbon Dioxide (21.0-32.0) mmol/L BUN (7.0-18.0) mg/dL Creatinine (0.6-1.0) mg/dL Est Cr Clr Drug Dosing mL/min Estimated GFR (MDRD) ml/min Glucose (74-106) mg/dL POC Glucose 510 H* 275 H 201 H (70-99) mg/dL Calcium (8.5-10.1) mg/dL 06/06/21 06/06/21 06/06/21 Range/Units 01:03 06:10 06:10 WBC 7.14 (4.0-11.0) K/uL RBC 3.47 L (4.30-5.90) M/uL Hgb 10.3 L (12.0-16.0) g/dL Hct 31.4 L (36.0-46.0) % MCV 90.5 (80.0-98.0) fL MCH 29.7 (27.0-32.0) pg MCHC 32.8 (31.0-37.0) g/dL RDW Std Deviation 51.3 (28.0-62.0) fl RDW Coeff of Jeannette 16 H (11.0-15.0) % Plt Count 201 (150-400) K/uL MPV 10.10 (7.40-12.00) fL Neut % (Auto) 71.1 (48.0-80.0) % Lymph % (Auto) 18.6 (16.0-40.0) % [place] % (Auto) 9.9 (0.0-15.0) % Eos % (Auto) 0.3 (0.0-7.0) % Baso % (Auto) 0.1 (0.0-1.5) % Neut # (Auto) 5.1 (1.4-5.7) K/uL Lymph # (Auto) 1.3 (0.6-2.4) K/uL [place] # (Auto) 0.7 (0.0-0.8) K/uL Eos # (Auto) 0.0 (0.0-0.7) K/uL Baso # (Auto) 0.0 (0.0-0.1) K/uL Nucleated RBC % 0.0 /100WBC Nucleated RBCs # 0 K/uL Sodium 138 (136-145) mmol/L Potassium 3.7 (3.5-5.1) mmol/L Chloride 101 (98-107) mmol/L Carbon Dioxide 29.7 (21.0-32.0) mmol/L BUN 20 H (7.0-18.0) mg/dL Creatinine 1.6 H (0.6-1.0) mg/dL Est Cr Clr Drug Dosing 37.27 mL/min Estimated GFR (MDRD) 40.1 ml/min Glucose 218 H (74-106) mg/dL POC Glucose 174 H (70-99) mg/dL Calcium 9.6 (8.5-10.1) mg/dL 06/06/21 06/06/21 Range/Units 06:57 11:33 WBC (4.0-11.0) K/uL RBC (4.30-5.90) M/uL Hgb (12.0-16.0) g/dL Hct (36.0-46.0) % MCV (80.0-98.0) fL MCH (27.0-32.0) pg MCHC (31.0-37.0) g/dL RDW Std Deviation (28.0-62.0) fl RDW Coeff of Jeannette (11.0-15.0) % Plt Count (150-400) K/uL MPV (7.40-12.00) fL Neut % (Auto) (48.0-80.0) % Lymph % (Auto) (16.0-40.0) % [place] % (Auto) (0.0-15.0) % Eos % (Auto) (0.0-7.0) % Baso % (Auto) (0.0-1.5) % Neut # (Auto) (1.4-5.7) K/uL Lymph # (Auto) (0.6-2.4) K/uL [place] # (Auto) (0.0-0.8) K/uL Eos # (Auto) (0.0-0.7) K/uL Baso # (Auto) (0.0-0.1) K/uL Nucleated RBC % /100WBC Nucleated RBCs # K/uL Sodium (136-145) mmol/L Potassium (3.5-5.1) mmol/L Chloride (98-107) mmol/L Carbon Dioxide (21.0-32.0) mmol/L BUN (7.0-18.0) mg/dL Creatinine (0.6-1.0) mg/dL Est Cr Clr Drug Dosing mL/min Estimated GFR (MDRD) ml/min Glucose (74-106) mg/dL POC Glucose 195 H 247 H (70-99) mg/dL Calcium (8.5-10.1) mg/dL Med Orders - Current: Current Medications Acetaminophen (Acetaminophen 325 Mg Tab) 650 mg PO Q6H PRN PRN Reason: Pain Albuterol (Albuterol 0.083% 2.5 Mg/3 Ml Neb Soln) 2.5 mg INH Q4H PRN PRN Reason: wheezing/SOB Albuterol/Ipratropium (Albuterol/Ipratropium 3.0-0.5 Mg/3 Ml Neb Soln) 3 ml NEB Q6HRRT [facility] Last Admin: 06/06/21 11:35 Dose: 3 ml Documented by: Aspirin (Aspirin 81 Mg Tab.Ec) 81 mg PO DAILY [facility] Last Admin: 06/06/21 08:56 Dose: 81 mg Documented by: Atorvastatin Calcium (Atorvastatin 40 Mg Tab) 40 mg PO BEDTIME [facility] Last Admin: 06/05/21 21:35 Dose: 40 mg Documented by: Dextrose/Water (50% Dextrose In Water 50 Ml Syringe) 50 ml IVPUSH ASDIRECTED PRN PRN Reason: Hypoglycemia Glucagon (Glucagon,Human Recombinant 1 Mg Vial) 1 mg IM ASDIRECTED PRN PRN Reason: Hypoglycemia Lisinopril/HCTZ (Lisinopril/Hydrochlorothiazide 10-12.5 Mg Tab) 1 tab PO DAILY [facility] Last Admin: 06/06/21 08:56 Dose: 1 tab Documented by: Insulin Aspart (Insulin Aspart 100 Units/Ml 3 Ml Pen) 0 unit SUBCUT TIDAC [facility]; Protocol Last Admin: 06/06/21 08:56 Dose: 2 units Documented by: Methylprednisolone Sodium Succinate (Methylprednisolone Sodium Succinate 125 Mg/2 Ml Sdv) 60 mg IVPUSH DAILY [facility] Last Admin: 06/06/21 08:55 Dose: 60 mg Documented by: Montelukast Sodium (Montelukast 10 Mg Tab) 10 mg PO BEDTIME [facility] Last Admin: 06/05/21 21:35 Dose: 10 mg Documented by: Nitroglycerin (Nitroglycerin 0.4 Mg Tab.Sl) 0.4 mg SL Q5M PRN PRN Reason: Chest Pain Last Admin: 06/04/21 20:46 Dose: 0.4 mg Documented by: Fluticasone/Salmeterol (Fluticasone/Salmeterol 250-50 Mcg Inhalation Powder 14/Diskus) 1 puff INH BID [facility] Last Admin: 06/06/21 08:55 Dose: 1 puff Documented by: Sodium Chloride (Sodium Chloride 0.9% 10 Ml Syringe) 10 ml FLUSH ASDIRECTED PRN PRN Reason: Keep Vein Open Sodium Chloride (Sodium Chloride 0.9% 2.5 Ml Syringe) 2.5 ml FLUSH ASDIRECTED PRN PRN Reason: Keep Vein Open Discontinued Medications Albuterol (Albuterol 0.5% 5 Mg/Ml Neb Soln 20 Ml Bottle) 2.5 mg INH Q4HRRT [facility] Last Admin: 06/05/21 06:39 Dose: 2.5 mg Documented by: Albuterol (Albuterol 0.083% 2.5 Mg/3 Ml Neb Soln) 2.5 mg INH Q4HRRT [facility] Last Admin: 06/05/21 17:51 Dose: Not Given Documented by: Albuterol/Ipratropium (Albuterol/Ipratropium 3.0-0.5 Mg/3 Ml Neb Soln) 3 ml NEB ONETIME ONE Stop: 06/04/21 19:47 Last Admin: 06/04/21 20:34 Dose: 3 ml Documented by: Aspirin (Aspirin 81 Mg Tab.Chew) 324 mg PO ONETIME ONE Stop: 06/04/21 20:41 Last Admin: 06/04/21 20:42 Dose: 324 mg Documented by: Aspirin (Aspirin 81 Mg Tab.Chew) Confirm Administered Dose 324 mg .ROUTE .STK- MED ONE Stop: 06/04/21 20:42 Last Admin: 06/04/21 20:50 Dose: Not Given Documented by: Dextrose/Water (50% Dextrose In Water 50 Ml Syringe) 50 ml IVPUSH ONETIME ONE Stop: 06/04/21 19:48 Last Admin: 06/04/21 20:57 Dose: 50 ml Documented by: Gadobenate Dimeglumine (Gadobenate Dimeglumine 529 Mg/Ml 20 Ml Sdv) 20 ml IVPUSH ONETIME STA Stop: 06/05/21 13:12 Last Admin: 06/05/21 13:12 Dose: 20 ml Documented by: Lisinopril/HCTZ (Lisinopril/Hydrochlorothiazide 10-12.5 Mg Tab) 1 tab PO DAILY [facility]O Lactated Ringer's (Ringers, Lactated) 1,000 mls @ 999 mls/hr IV .BOLUS ONE Stop: 06/04/21 20:42 Last Admin: 06/04/21 20:34 Dose: 999 mls/hr Documented by: Insulin Glargine (Insulin Glargine,Human Rec. Analog 100 Units/Ml 3 Ml Pen) 10 units SUBCUT ONETIME ONE Stop: 06/05/21 13:48 Last Admin: 06/05/21 14:04 Dose: 10 units Documented by: Iopamidol (Iopamidol 755 Mg/Ml 100 Ml Bottle) 100 ml IVPUSH ONETIME ONE Stop: 06/04/21 20:17 Last Admin: 06/04/21 20:17 Dose: 100 ml Documented by: Lisinopril (Lisinopril 10 Mg Tab) 10 mg PO ONETIME ONE Stop: 06/05/21 01:06 Last Admin: 06/05/21 03:43 Dose: Not Given Documented by: Methylprednisolone Sodium Succinate (Methylprednisolone Sodium Succinate 125 Mg/2 Ml Sdv) 125 mg IVPUSH ONETIME ONE Stop: 06/04/21 19:43 Last Admin: 06/04/21 20:34 Dose: 125 mg Documented by: Morphine Sulfate (Morphine 4 Mg/Ml Syringe) 4 mg IVPUSH ONETIME ONE Stop: 06/04/21 21:09 Last Admin: 06/04/21 21:20 Dose: 4 mg Documented by: Morphine Sulfate (Morphine 2 Mg/Ml Sdv) 2 mg IVPUSH Q3H PRN PRN Reason: pain Morphine Sulfate (Morphine 2 Mg/Ml Syringe) 2 mg IVPUSH Q3H PRN PRN Reason: pain Last Admin: 06/06/21 09:03 Dose: 2 mg Documented by: Nitroglycerin (Nitroglycerin 0.4 Mg Tab.Sl) Confirm Administered Dose 1.2 mg .ROUTE .STK-MED ONE Stop: 06/04/21 20:42 Last Admin: 06/04/21 20:50 Dose: Not Given Documented by: - Exam General: Alert, Oriented Neck: Supple Lungs: Normal Respiratory Effort, Wheezing Cardiovascular: Regular Rate, Regular Rhythm GI/Abdominal Exam: Normal Bowel Sounds, Soft, Non-Tender Extremities: Non-Tender, No Pedal Edema Skin: Warm, Dry, Intact Neurological: No New Focal Deficit - Patient Data Lab Results Last 24 hrs: Laboratory Results - last 24 hr 06/05/21 06/05/21 06/05/21 Range/Units 13:35 17:07 21:47 WBC (4.0-11.0) K/uL RBC (4.30-5.90) M/uL Hgb (12.0-16.0) g/dL Hct (36.0-46.0) % MCV (80.0-98.0) fL MCH (27.0-32.0) pg MCHC (31.0-37.0) g/dL RDW Std Deviation (28.0-62.0) fl RDW Coeff of Jeannette (11.0-15.0) % Plt Count (150-400) K/uL MPV (7.40-12.00) fL Neut % (Auto) (48.0-80.0) % Lymph % (Auto) (16.0-40.0) % [place] % (Auto) (0.0-15.0) % Eos % (Auto) (0.0-7.0) % Baso % (Auto) (0.0-1.5) % Neut # (Auto) (1.4-5.7) K/uL Lymph # (Auto) (0.6-2.4) K/uL [place] # (Auto) (0.0-0.8) K/uL Eos # (Auto) (0.0-0.7) K/uL Baso # (Auto) (0.0-0.1) K/uL Nucleated RBC % /100WBC Nucleated RBCs # K/uL Sodium (136-145) mmol/L Potassium (3.5-5.1) mmol/L Chloride (98-107) mmol/L Carbon Dioxide (21.0-32.0) mmol/L BUN (7.0-18.0) mg/dL Creatinine (0.6-1.0) mg/dL Est Cr Clr Drug Dosing mL/min Estimated GFR (MDRD) ml/min Glucose (74-106) mg/dL POC Glucose 510 H* 275 H 201 H (70-99) mg/dL Calcium (8.5-10.1) mg/dL 06/06/21 06/06/21 06/06/21 Range/Units 01:03 06:10 06:10 WBC 7.14 (4.0-11.0) K/uL RBC 3.47 L (4.30-5.90) M/uL Hgb 10.3 L (12.0-16.0) g/dL Hct 31.4 L (36.0-46.0) % MCV 90.5 (80.0-98.0) fL MCH 29.7 (27.0-32.0) pg MCHC 32.8 (31.0-37.0) g/dL RDW Std Deviation 51.3 (28.0-62.0) fl RDW Coeff of Jeannette 16 H (11.0-15.0) % Plt Count 201 (150-400) K/uL MPV 10.10 (7.40-12.00) fL Neut % (Auto) 71.1 (48.0-80.0) % Lymph % (Auto) 18.6 (16.0-40.0) % [place] % (Auto) 9.9 (0.0-15.0) % Eos % (Auto) 0.3 (0.0-7.0) % Baso % (Auto) 0.1 (0.0-1.5) % Neut # (Auto) 5.1 (1.4-5.7) K/uL Lymph # (Auto) 1.3 (0.6-2.4) K/uL [place] # (Auto) 0.7 (0.0-0.8) K/uL Eos # (Auto) 0.0 (0.0-0.7) K/uL Baso # (Auto) 0.0 (0.0-0.1) K/uL Nucleated RBC % 0.0 /100WBC Nucleated RBCs # 0 K/uL Sodium 138 (136-145) mmol/L Potassium 3.7 (3.5-5.1) mmol/L Chloride 101 (98-107) mmol/L Carbon Dioxide 29.7 (21.0-32.0) mmol/L BUN 20 H (7.0-18.0) mg/dL Creatinine 1.6 H (0.6-1.0) mg/dL Est Cr Clr Drug Dosing 37.27 mL/min Estimated GFR (MDRD) 40.1 ml/min Glucose 218 H (74-106) mg/dL POC Glucose 174 H (70-99) mg/dL Calcium 9.6 (8.5-10.1) mg/dL 06/06/21 06/06/21 Range/Units 06:57 11:33 WBC (4.0-11.0) K/uL RBC (4.30-5.90) M/uL Hgb (12.0-16.0) g/dL Hct (36.0-46.0) % MCV (80.0-98.0) fL MCH (27.0-32.0) pg MCHC (31.0-37.0) g/dL RDW Std Deviation (28.0-62.0) fl RDW Coeff of Jeannette (11.0-15.0) % Plt Count (150-400) K/uL MPV (7.40-12.00) fL Neut % (Auto) (48.0-80.0) % Lymph % (Auto) (16.0-40.0) % [place] % (Auto) (0.0-15.0) % Eos % (Auto) (0.0-7.0) % Baso % (Auto) (0.0-1.5) % Neut # (Auto) (1.4-5.7) K/uL Lymph # (Auto) (0.6-2.4) K/uL [place] # (Auto) (0.0-0.8) K/uL Eos # (Auto) (0.0-0.7) K/uL Baso # (Auto) (0.0-0.1) K/uL Nucleated RBC % /100WBC Nucleated RBCs # K/uL Sodium (136-145) mmol/L Potassium (3.5-5.1) mmol/L Chloride (98-107) mmol/L Carbon Dioxide (21.0-32.0) mmol/L BUN (7.0-18.0) mg/dL Creatinine (0.6-1.0) mg/dL Est Cr Clr Drug Dosing mL/min Estimated GFR (MDRD) ml/min Glucose (74-106) mg/dL POC Glucose 195 H 247 H (70-99) mg/dL Calcium (8.5-10.1) mg/dL Result Diagrams: 06/06/21 06:10 06/06/21 06:10 Sepsis Event Note - Evaluation Sepsis Screening Result: No Definite Risk - Focused Exam Vital Signs: Vital Signs Temp Pulse Resp BP Pulse Ox Pulse Ox 06/06/21 12:13 36.4 C 70 18 151/64 H 96 06/06/21 10:00 98 06/06/21 08:34 36.0 C L 85 18 118/69 96 06/06/21 05:15 37.1 C 83 18 133/63 93 L 06/06/21 01:10 36.6 C 77 16 144/81 H 96 - Problem List & Annotations (1) Atypical chest pain SNOMED Code(s): 537637166 Code(s): R07.89 - OTHER CHEST PAIN Status: Acute Current Visit: No (2) Chest pain SNOMED Code(s): 53445850 Code(s): R07.9 - CHEST PAIN, UNSPECIFIED Status: Acute Current Visit: Yes Qualifiers: Chest pain type: unspecified Qualified Code(s): R07.9 - Chest pain, unspecified (3) Asthma exacerbation SNOMED Code(s): 845285372 Code(s): J45.901 - UNSPECIFIED ASTHMA WITH (ACUTE) EXACERBATION Status: Acute Current Visit: Yes - Problem List Review Problem List Initiated/Reviewed/Updated: Yes - My Orders Last 24 Hours: My Active Orders 06/05/21 16:54 Albuterol [Proventil Neb Soln] 2.5 mg INH Q4H PRN 06/05/21 21:00 Fluticasone/Salmeterol [Advair Diskus 250-50] 1 puff INH BID Montelukast [Singulair] 10 mg PO BEDTIME atorvaSTATin [Lipitor] 40 mg PO BEDTIME 06/06/21 09:00 Aspirin [Halfprin] 81 mg PO DAILY 06/06/21 12:18 Acetaminophen [TylenoL] 650 mg PO Q6H PRN - Plan Plan:: 56 yo female admitted with chest pain, and shortness of breath. Chest pain: likely due to asthma, serial cardiac enzymes are negative. will resume antihypertensive medications Asthma exacerbation: duonebs, and solumedrol left arm weakness: may have been TIA, MRI brain shows no acute process
[2021-06-06] MEDS: Acetaminophen 325 MG Tab PO PRN ×2 (12:55→20:42)
[2021-06-06] MEDS ORDERED: Calcium Carbonate 500 MG Tab.Chew PO PRN (14:31)
[2021-06-06] MEDS: Montelukast 10 MG Tab PO SCH (20:42)
[2021-06-06] MEDS: atorvaSTATin 40 MG Tab PO SCH (20:42)
[2021-06-07] MEDS: Albuterol/Ipratropium 3.0-0.5 MG/3 ML Neb Soln NEB SCH ×2 (05:51)
[2021-06-07 06:38] LABS: CARBON DIOXIDE,CO2 30.1 mmol/L (21.0-32.0); POTASSIUM,K 3.5 mmol/L (3.5-5.1)
[2021-06-07] MEDS: Insulin Aspart 100 Units/ML 3 ML Pen SUBCUT SCH ×2 (07:53→11:19)
[2021-06-07 07:54] VITALS: BP 135/80; PULSE 69
[2021-06-07] MEDS: Acetaminophen 325 MG Tab PO PRN (08:09)
[2021-06-07] MEDS: Aspirin 81 MG Tab.EC PO SCH (08:09)
[2021-06-07] MEDS: methylPREDNISolone Sodium Succinate 125 MG/2 ML SDV IVPUSH SCH (08:10)
[2021-06-07] MEDS: Fluticasone/Salmeterol 250-50 MCG Inhalation Powder 14/Diskus INH SCH (08:10)
[2021-06-07] MEDS: Lisinopril/Hydrochlorothiazide 10-12.5 MG Tab PO SCH (08:10)
--- NOTE | 2021-06-07 11:58 | PCM.DCSUM1 ---
Discharge Summary - Discharge Data Discharge Date: 06/07/21 Discharge Disposition: Home, Self-Care 01 Condition: Stable - Referral to Home Health Primary Care Physician: PCP None - Discharge Diagnosis/Problem(s) (1) Atypical chest pain SNOMED Code(s): 723009810 ICD Code: R07.89 - OTHER CHEST PAIN Status: Acute Current Visit: No (2) Chest pain SNOMED Code(s): 98664767 ICD Code: R07.9 - CHEST PAIN, UNSPECIFIED Status: Acute Current Visit: Yes Qualifiers: Chest pain type: unspecified Qualified Code(s): R07.9 - Chest pain, unspecified (3) Asthma exacerbation SNOMED Code(s): 104713967 ICD Code: J45.901 - UNSPECIFIED ASTHMA WITH (ACUTE) EXACERBATION Status: Acute Current Visit: Yes - Patient Summary/Data Hospital Course: 56 yo female with hypertension, IA, CVA, HLD, DM2, alcohol abuse, asthma who presents to the ED with complaint of chest tightness, shortness of breath and left arm weakness. She has a history of CVA with residual left arm weakness but reports a worsening in left arm strenth. She was noted to have a low blood glucose of 50 and was given amp of d50. On exam she was wheezing but no focal neurological deficits. She was satting 95% on room air. Head CT and Brain MRI showed microvascular disease but no acute infarcts. She ruled out for acute coronary syndrome with serial negative cardiac enzymes. She was treated with solumedrol and duonebs. Her shortness of breath and chest pain resolved and she was discharged home to have follow up with Dr. Hand. I refilled her asthma and antihypertensive medications. - Patient Instructions Diet: Diabetic Diet Activity: As Tolerated - Discharge Plan *PRESCRIPTION DRUG MONITORING PROGRAM REVIEWED*: Not Applicable *COPY OF PRESCRIPTION DRUG MONITORING REPORT IN PATIENT TREVOR: Not Applicable Prescriptions/Med Rec: Lisinopril/Hydrochlorothiazide [Lisinopril-HCTZ 10-12.5 MG] 10 - 12.5 mg PO DAILY #30 tab predniSONE [Prednisone] 40 mg PO DAILY 3 Days #6 tablet Albuterol Sulfate [Proair Hfa] 1 - 2 inh IH Q4H PRN #1 inh PRN Reason: Shortness Of Breath Albuterol [Proventil Neb Soln] 2.5 mg NEB Q4HRRT PRN #50 cup PRN Reason: Wheezing Montelukast [Singulair] 10 mg PO BEDTIME #30 Home Medications: Home Meds atorvaSTATin [Lipitor] 40 mg PO BEDTIME 90 Days #30 tab 04/18/18 [Rx] Glimepiride [Amaryl] 2 mg PO DAILY 07/22/18 [History] metFORMIN HCl [Metformin HCl] 500 mg PO BID 06/23/19 [History] Aspirin [Aspirin EC] 81 mg PO DAILY 11/08/20 [History] Fluticasone Propion/Salmeterol [Advair 250-50 Diskus] 1 inh IH BID 03/30/21 [History] Albuterol Sulfate [Proair Hfa] 1 - 2 inh IH Q4H PRN #1 inh 06/07/21 [Rx] Albuterol [Proventil Neb Soln] 2.5 mg NEB Q4HRRT PRN #50 cup 06/07/21 [Rx] Lisinopril/Hydrochlorothiazide [Lisinopril-HCTZ 10-12.5 MG] 10 - 12.5 mg PO PHILL Y #30 tab 06/07/21 [Rx] Montelukast [Singulair] 10 mg PO BEDTIME #30 06/07/21 [Rx] predniSONE [Prednisone] 40 mg PO DAILY 3 Days #6 tablet 06/07/21 [Rx] Referrals: Ken Hand MD [Physician] - - Discharge Summary/Plan Comment DC Time >30 min.: No Total # of Minutes for Discharge Time: 20 - Patient Data Vitals - Most Recent: Last Vital Signs Temp 35.9 C L 06/07/21 07:54 Pulse 69 06/07/21 07:54 Resp 16 06/07/21 07:54 BP 135/80 06/07/21 07:54 Pulse Ox 97 06/07/21 07:54 Weight - Most Recent: 107.048 kg I&O - Last 24 hours: Intake & Output 06/06/21 06/07/21 06/07/21 22:59 06:59 14:59 Intake Total 1200 1040 Output Total 800 Balance 400 1040 Lab Results - Last 24 hrs: Laboratory Results - last 24 hr 06/06/21 06/07/21 06/07/21 Range/Units 16:56 05:40 05:40 WBC 6.54 (4.0-11.0) K/uL RBC 3.38 L (4.30-5.90) M/uL Hgb 10.0 L (12.0-16.0) g/dL Hct 30.7 L (36.0-46.0) % MCV 90.8 (80.0-98.0) fL MCH 29.6 (27.0-32.0) pg MCHC 32.6 (31.0-37.0) g/dL RDW Std Deviation 52.0 (28.0-62.0) fl RDW Coeff of Jeannette 16 H (11.0-15.0) % Plt Count 193 (150-400) K/uL MPV 10.70 (7.40-12.00) fL Neut % (Auto) 62.9 (48.0-80.0) % Lymph % (Auto) 28.1 (16.0-40.0) % [place] % (Auto) 8.0 (0.0-15.0) % Eos % (Auto) 0.8 (0.0-7.0) % Baso % (Auto) 0.2 (0.0-1.5) % Neut # (Auto) 4.1 (1.4-5.7) K/uL Lymph # (Auto) 1.8 (0.6-2.4) K/uL [place] # (Auto) 0.5 (0.0-0.8) K/uL Eos # (Auto) 0.1 (0.0-0.7) K/uL Baso # (Auto) 0.0 (0.0-0.1) K/uL Nucleated RBC % 0.0 /100WBC Nucleated RBCs # 0 K/uL Sodium 140 (136-145) mmol/L Potassium 3.5 (3.5-5.1) mmol/L Chloride 103 (98-107) mmol/L Carbon Dioxide 30.1 (21.0-32.0) mmol/L BUN 22 H (7.0-18.0) mg/dL Creatinine 1.3 H (0.6-1.0) mg/dL Est Cr Clr Drug Dosing 45.87 mL/min Estimated GFR (MDRD) 51.0 ml/min Glucose 147 H (74-106) mg/dL POC Glucose 398 H (70-99) mg/dL Calcium 9.5 (8.5-10.1) mg/dL 06/07/21 06/07/21 Range/Units 07:01 11:17 WBC (4.0-11.0) K/uL RBC (4.30-5.90) M/uL Hgb (12.0-16.0) g/dL Hct (36.0-46.0) % MCV (80.0-98.0) fL MCH (27.0-32.0) pg MCHC (31.0-37.0) g/dL RDW Std Deviation (28.0-62.0) fl RDW Coeff of Jeannette (11.0-15.0) % Plt Count (150-400) K/uL MPV (7.40-12.00) fL Neut % (Auto) (48.0-80.0) % Lymph % (Auto) (16.0-40.0) % [place] % (Auto) (0.0-15.0) % Eos % (Auto) (0.0-7.0) % Baso % (Auto) (0.0-1.5) % Neut # (Auto) (1.4-5.7) K/uL Lymph # (Auto) (0.6-2.4) K/uL [place] # (Auto) (0.0-0.8) K/uL Eos # (Auto) (0.0-0.7) K/uL Baso # (Auto) (0.0-0.1) K/uL Nucleated RBC % /100WBC Nucleated RBCs # K/uL Sodium (136-145) mmol/L Potassium (3.5-5.1) mmol/L Chloride (98-107) mmol/L Carbon Dioxide (21.0-32.0) mmol/L BUN (7.0-18.0) mg/dL Creatinine (0.6-1.0) mg/dL Est Cr Clr Drug Dosing mL/min Estimated GFR (MDRD) ml/min Glucose (74-106) mg/dL POC Glucose 151 H 223 H (70-99) mg/dL Calcium (8.5-10.1) mg/dL Med Orders - Current: Current Medications Acetaminophen (Acetaminophen 325 Mg Tab) 650 mg PO Q6H PRN PRN Reason: Pain Last Admin: 06/07/21 08:09 Dose: 650 mg Documented by: Albuterol (Albuterol 0.083% 2.5 Mg/3 Ml Neb Soln) 2.5 mg INH Q4H PRN PRN Reason: wheezing/SOB Albuterol/Ipratropium (Albuterol/Ipratropium 3.0-0.5 Mg/3 Ml Neb Soln) 3 ml NEB Q6HRRT [facility] Last Admin: 06/07/21 05:51 Dose: 3 ml Documented by: Aspirin (Aspirin 81 Mg Tab.Ec) 81 mg PO DAILY [facility] Last Admin: 06/07/21 08:09 Dose: 81 mg Documented by: Atorvastatin Calcium (Atorvastatin 40 Mg Tab) 40 mg PO BEDTIME [facility] Last Admin: 06/06/21 20:42 Dose: 40 mg Documented by: Calcium Carbonate/Glycine (Calcium Carbonate 500 Mg Tab.Chew) 500 mg PO TID PRN PRN Reason: Indigestion Last Admin: 06/06/21 15:09 Dose: 500 mg Documented by: Dextrose/Water (50% Dextrose In Water 50 Ml Syringe) 50 ml IVPUSH ASDIRECTED PRN PRN Reason: Hypoglycemia Glucagon (Glucagon,Human Recombinant 1 Mg Vial) 1 mg IM ASDIRECTED PRN PRN Reason: Hypoglycemia Lisinopril/HCTZ (Lisinopril/Hydrochlorothiazide 10-12.5 Mg Tab) 1 tab PO DAILY [facility] Last Admin: 06/07/21 08:10 Dose: 1 tab Documented by: Insulin Aspart (Insulin Aspart 100 Units/Ml 3 Ml Pen) 0 unit SUBCUT TIDAC [facility]; Protocol Last Admin: 06/07/21 11:19 Dose: 4 units Documented by: Methylprednisolone Sodium Succinate (Methylprednisolone Sodium Succinate 125 Mg/2 Ml Sdv) 60 mg IVPUSH DAILY [facility] Last Admin: 06/07/21 08:10 Dose: 60 mg Documented by: Montelukast Sodium (Montelukast 10 Mg Tab) 10 mg PO BEDTIME [facility] Last Admin: 06/06/21 20:42 Dose: 10 mg Documented by: Nitroglycerin (Nitroglycerin 0.4 Mg Tab.Sl) 0.4 mg SL Q5M PRN PRN Reason: Chest Pain Last Admin: 06/04/21 20:46 Dose: 0.4 mg Documented by: Fluticasone/Salmeterol (Fluticasone/Salmeterol 250-50 Mcg Inhalation Powder 14/Diskus) 1 puff INH BID [facility] Last Admin: 06/07/21 08:10 Dose: 1 puff Documented by: Sodium Chloride (Sodium Chloride 0.9% 10 Ml Syringe) 10 ml FLUSH ASDIRECTED PRN PRN Reason: Keep Vein Open Sodium Chloride (Sodium Chloride 0.9% 2.5 Ml Syringe) 2.5 ml FLUSH ASDIRECTED PRN PRN Reason: Keep Vein Open Discontinued Medications Albuterol (Albuterol 0.5% 5 Mg/Ml Neb Soln 20 Ml Bottle) 2.5 mg INH Q4HRRT [facility] Last Admin: 06/05/21 06:39 Dose: 2.5 mg Documented by: Albuterol (Albuterol 0.083% 2.5 Mg/3 Ml Neb Soln) 2.5 mg INH Q4HRRT [facility] Last Admin: 06/05/21 17:51 Dose: Not Given Documented by: Albuterol/Ipratropium (Albuterol/Ipratropium 3.0-0.5 Mg/3 Ml Neb Soln) 3 ml NEB ONETIME ONE Stop: 06/04/21 19:47 Last Admin: 06/04/21 20:34 Dose: 3 ml Documented by: Aspirin (Aspirin 81 Mg Tab.Chew) 324 mg PO ONETIME ONE Stop: 06/04/21 20:41 Last Admin: 06/04/21 20:42 Dose: 324 mg Documented by: Aspirin (Aspirin 81 Mg Tab.Chew) Confirm Administered Dose 324 mg .ROUTE .STK- MED ONE Stop: 06/04/21 20:42 Last Admin: 06/04/21 20:50 Dose: Not Given Documented by: Dextrose/Water (50% Dextrose In Water 50 Ml Syringe) 50 ml IVPUSH ONETIME ONE Stop: 06/04/21 19:48 Last Admin: 06/04/21 20:57 Dose: 50 ml Documented by: Gadobenate Dimeglumine (Gadobenate Dimeglumine 529 Mg/Ml 20 Ml Sdv) 20 ml IVPUSH ONETIME STA Stop: 06/05/21 13:12 Last Admin: 06/05/21 13:12 Dose: 20 ml Documented by: Lisinopril/HCTZ (Lisinopril/Hydrochlorothiazide 10-12.5 Mg Tab) 1 tab PO DAILY [facility] Lactated Ringer's (Ringers, Lactated) 1,000 mls @ 999 mls/hr IV .BOLUS ONE Stop: 06/04/21 20:42 Last Admin: 06/04/21 20:34 Dose: 999 mls/hr Documented by: Insulin Glargine (Insulin Glargine,Human Rec. Analog 100 Units/Ml 3 Ml Pen) 10 units SUBCUT ONETIME ONE Stop: 06/05/21 13:48 Last Admin: 06/05/21 14:04 Dose: 10 units Documented by: Iopamidol (Iopamidol 755 Mg/Ml 100 Ml Bottle) 100 ml IVPUSH ONETIME ONE Stop: 06/04/21 20:17 Last Admin: 06/04/21 20:17 Dose: 100 ml Documented by: Lisinopril (Lisinopril 10 Mg Tab) 10 mg PO ONETIME ONE Stop: 06/05/21 01:06 Last Admin: 06/05/21 03:43 Dose: Not Given Documented by: Methylprednisolone Sodium Succinate (Methylprednisolone Sodium Succinate 125 Mg/2 Ml Sdv) 125 mg IVPUSH ONETIME ONE Stop: 06/04/21 19:43 Last Admin: 06/04/21 20:34 Dose: 125 mg Documented by: Morphine Sulfate (Morphine 4 Mg/Ml Syringe) 4 mg IVPUSH ONETIME ONE Stop: 06/04/21 21:09 Last Admin: 06/04/21 21:20 Dose: 4 mg Documented by: Morphine Sulfate (Morphine 2 Mg/Ml Sdv) 2 mg IVPUSH Q3H PRN PRN Reason: pain Morphine Sulfate (Morphine 2 Mg/Ml Syringe) 2 mg IVPUSH Q3H PRN PRN Reason: pain Last Admin: 06/06/21 09:03 Dose: 2 mg Documented by: Nitroglycerin (Nitroglycerin 0.4 Mg Tab.Sl) Confirm Administered Dose 1.2 mg .ROUTE .STK-MED ONE Stop: 06/04/21 20:42 Last Admin: 06/04/21 20:50 Dose: Not Given Documented by:
== END 2021-06-07 12:39 | disposition home or self-care (01) | DRG 203 ==
LOC: MW.ED 19:36 → MW.MS 21:12 → OBSVTOIN 06-06 14:26 → MW.MS 06-06 14:29
PROVIDERS: ADMIT Internal Medicine; ATTEND Internal Medicine
DX: J45.21 Mild intermittent asthma with (acute) exacerbation (principal); R07.89 Other chest pain; E78.5 Hyperlipidemia, unspecified; I25.10 Atherosclerotic heart disease of native coronary artery without angina pectoris; E78.00 Pure hypercholesterolemia, unspecified; K21.9 Gastro-esophageal reflux disease without esophagitis; I69.334 Monoplegia of upper limb following cerebral infarction affecting left non-dominant side; Z20.822 Contact with and (suspected) exposure to COVID-19; I10 Essential (primary) hypertension; E11.9 Type 2 diabetes mellitus without complications; F17.210 Nicotine dependence, cigarettes, uncomplicated; G47.33 Obstructive sleep apnea (adult) (pediatric); E66.9 Obesity, unspecified; I25.2 Old myocardial infarction; Z79.84 Long term (current) use of oral hypoglycemic drugs; Z79.899 Other long term (current) drug therapy; Z79.52 Long term (current) use of systemic steroids; Z79.51 Long term (current) use of inhaled steroids; Z79.82 Long term (current) use of aspirin; Z68.37 Body mass index [BMI] 37.0-37.9, adult
CPT/HCPCS: 36415; 70450; 70450-26; 70496; 70496-26; 70498; 70498-26; 70553; 70553-26; 71045; 71045-26; 80048; 80053; 81003; 82947; 83036; 83735; 83880; 84100; 84484; 85025; 85610; 93005; 94640; 96376; A9270-GY; A9577; G0378; J1815-GY; J2270; J2930; J7120; J7620-GY; Q9967; U0002

== ENCOUNTER 2021-06-07 20:50 | Emergency (ER) | payer MEDICAID ==
[2021-06-07] MEDS ORDERED: Sodium Chloride 0.9% 1,000 ML IV ONE (20:57)
--- NOTE | 2021-06-07 20:58 | EDM.PDOCBH ---
<Amy Heredia E - Last Filed: 06/07/21 21:58> ED HPI GENERAL MEDICAL PROBLEM - General Chief Complaint: Behavioral/Psych Stated Complaint: INTOXICATION EMS ARRIVAL Time Seen by Provider: 06/07/21 20:56 Source of Information: Reports: Patient History Limitations: Reports: No Limitations - History of Present Illness INITIAL COMMENTS - FREE TEXT/NARRATIVE: HISTORY AND PHYSICAL: History of present illness: Patient is a 56-year-old female who presents to the emergency room with statements of feeling depressed and wanting to commit suicide. Patient is well- known to our emergency room and was recently admitted on 06/05/2021 and discharged earlier this morning. She states upon her discharge she learned that her cousin/best friend had of COVID-19. She started drinking alcohol per her usual since being discharged from the hospital. Last drink was approximately 1 hour prior to arrival. She states she planned on taking all her prescription medications and "just dying". Patient has a longstanding history of alcohol abuse, hypertension, type 2 diabetes, HDL, CVA, asthma and previous CA. Patient denies any fever, chills, headache, change in vision, syncope or near syncope. Denies any chest pain, back pain, shortness of breath or cough. Denies any GI or symptoms. Patient has been eating and drinking appropriately. Review of systems: As per history of present illness and below otherwise all systems reviewed and negative. Past medical history: As per history of present illness and as reviewed below otherwise noncontributory. Surgical history: As per history of present illness and as reviewed below otherwise noncontributory. Social history: See social history for further information Family history: As per history of present illness and as reviewed below otherwise noncontributory. Physical exam: General: Well developed and well nourished 56 year old black female. Alert and orientated x 3. Nontoxic in appearance and in no acute distress. Vital signs are stable and have been reviewed by me. Nursing notes were reviewed. HEENT: Atraumatic, normocephalic, pupils equal and reactive bilaterally, negative for conjunctival pallor or scleral icterus, mucous membranes moist, TMs normal bilaterally, throat clear, neck supple, nontender, trachea midline. No drooling or trismus noted. No meningeal signs. No hot potato voice noted. Lungs: Clear to auscultation bilaterally. No wheezes, rales, or rhonchi. Chest nontender. Normal work of breathing, no accessory muscles used. Heart: S1S2, regular rate and rhythm without overt murmur, gallops, or rubs. No JVD. No peripheral edema Abdomen: Soft, nondistended, nontender. Normoactive bowel sounds. Negative for masses or costovertebral tenderness. Skin: Intact, warm, dry. No lesions or rashes noted. Hematologic: No petechiae or purpra. Mucosa appropriate color and normal nail bed color and refill. Extremities: Atraumatic, moves all extremities per self without difficulty or deficits, negative for cords or calf pain. Neurovascular unremarkable. Neuro: Awake, alert, oriented. Cranial nerves II through XII unremarkable. Cerebellum unremarkable. Motor and sensory unremarkable throughout. Exam nonfocal. Psychiatric: Mood and affect are appropriate. Normal thought process. Answering questions appropriately. Please note that the patient was seen and evaluated during the 2019 SARS-CoV-2 novel coronavirus pandemic period. Community viral transmission is ongoing at time of this encounter and the emergency department is operating under pandemic response procedures. Medical Decision Makin06/05/2021: Patient presented to the emergency room with complaints of chest pain. She was admitted for observation to rule out CA. During her admission several tests were performed including serial cardiac enzymes and a MRI of the brain. Patient was complaining of some left arm pain that worsened with cough, due to her previous history of CVA they did do the MRI. MRI shows no acute infarction or other acute intracranial pathology. Smooth patchy meningeal enhancement along both anterior cerebral convexities as well as the anterior falx. Multifocal dural/follow seen calcifications are noted on the comparison CT. Nonspecific and could reflect sequela of prior inflammatory process or reactive changes from prior subdural hematoma. Small chronic lacunar infarct left ventricle thalamus and right medial thalamus. Small chronic infarct right paramedian ava. Chronic microvascular ischemic changes most prominently involving the brainstem. Patient was discharged to home to resume her home medications. Patient is a 56-year-old female who presents to the emergency room by ambulance with statements of wanting to overdose on her home medication with the intent of committing suicide. She is well-known to our emergency room due to her chronic health problems and her chronic alcohol abuse. She actually was admitted to the hospital on 06/05/2021 with complaints of chest pain and did have serial enzymes that ruled her out and she was discharged earlier this morning. She states when she came home she learned of her cousin/best friend dying of COVID-19 thus bringing her here to the emergency room. Physical exam is unremarkable. Patient is aware of what a mental health hold entails, she states a few months ago she was transferred to a different facility for similar. We will do basic work-up and give IV fluids at this time. She does have a one-on-one sitter with her. Patient was walking to bathroom and as she returned to her bed, she slipped hit ting her head on the cott. This was witnessed, she did not have LOC. Patient was full re-examined, mild tenderness to right posterior rib area. Otherwise WNL. Will obtain CXR and head CT due to her ETOH use. Labs Pending: Report given to Dr Rodriguez who will take over on this patient. Diagnostics: CBC, CMP, acetaminophen, salicylate, TSH, UA, urine drug screen, hCG U, COVID- 19, head CT, CXR Therapeutics: IV fluid Impression: Alcohol abuse Suicidal ideation with plan Fall Definitive disposition and diagnosis as appropriate pending reevaluation and review of above. - Related Data Allergies Allergy/AdvReac Type Severity Reaction Status Date / Time No Known Allergies Allergy Verified 06/07/21 20:57 Home Meds: Home Meds atorvaSTATin [Lipitor] 40 mg PO BEDTIME 90 Days #30 tab 04/18/18 [Rx] Glimepiride [Amaryl] 2 mg PO DAILY 07/22/18 [History] metFORMIN HCl [Metformin HCl] 500 mg PO BID 06/23/19 [History] Aspirin [Aspirin EC] 81 mg PO DAILY 11/08/20 [History] Fluticasone Propion/Salmeterol [Advair 250-50 Diskus] 1 inh IH BID 03/30/21 [History] Albuterol Sulfate [Proair Hfa] 1 - 2 inh IH Q4H PRN #1 inh 06/07/21 [Rx] Albuterol [Proventil Neb Soln] 2.5 mg NEB Q4HRRT PRN #50 cup 06/07/21 [Rx] Lisinopril/Hydrochlorothiazide [Lisinopril-HCTZ 10-12.5 MG] 10 - 12.5 mg PO DAILY #30 tab 09/19/21 [Rx] Montelukast [Singulair] 10 mg PO BEDTIME #30 06/07/21 [Rx] predniSONE [Prednisone] 40 mg PO DAILY 3 Days #6 tablet 06/07/21 [Rx] Past Medical History - Past Health History Medical/Surgical History: Denies Medical/Surgical History HEENT History: Reports: Other (See Below) Other HEENT History: ear infection Cardiovascular History: Reports: CAD, High Cholesterol, Hypertension, CA Respiratory History: Reports: Asthma, Sleep Apnea Gastrointestinal History: Reports: GERD Genitourinary History: Reports: None [employer] PROFESSOR History: Reports: Other [employer] PROFESSOR History: 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 Musculoskeletal History: Reports: Other (See Below) Other Musculoskeletal History: ankle fracture - 2013 Neurological History: Reports: TIA Psychiatric History: Reports: None Endocrine/Metabolic History: Reports: Diabetes, Type II Hematologic History: Reports: None Immunologic History: Reports: None Oncologic (Cancer) History: Reports: None Dermatologic History: Reports: None - Infectious Disease History Infectious Disease History: Reports: Chicken Pox, Measles, Mumps - Past Surgical History Head Surgeries/Procedures: Reports: None HEENT Surgical History: Reports: None Cardiovascular Surgical History: Reports: None Respiratory Surgical History: Reports: None GI Surgical History: Reports: None Female Surgical History: Reports: None Endocrine Surgical History: Reports: None Neurological Surgical History: Reports: None Musculoskeletal Surgical History: Reports: Other (See Below) Other Musculoskeletal Surgeries/Procedures:: broke Left ankle Dermatological Surgical History: Reports: None Social & Family History - Family History Family Medical History: No Pertinent Family History Cardiac: Reports: Hypertension, CA Respiratory: Reports: Asthma OBGYN: Reports: Musculoskeletal: Reports: Arthritis Neurological: Reports: CVA Endocrine/Metabolic: Reports: Diabetes, type II - Caffeine Use Caffeine Use: Reports: Soda Departure - Departure Disposition: Admitted As Inpatient 64 Clinical Impression: Suicidal ideation - Discharge Information Forms: ED Department Discharge Sepsis Event Note (ED) - Evaluation Sepsis Screening Result: No Definite Risk <Colton Rodriguez - Last Filed: 06/08/21 00:03> ED ROS GENERAL - Review of Systems Review Of Systems: See Below ED EXAM, BEHAVIORAL HEALTH - Physical Exam Exam: See Below COURSE, BEHAVIORAL HEALTH COMP - Course Vital Signs: Last Vital Signs Temp 36.9 C 06/07/21 20:54 Pulse 77 06/07/21 23:30 Resp 20 06/07/21 23:30 BP 120/74 06/07/21 23:30 Pulse Ox 99 06/07/21 23:30 Orders, Labs, Meds: Active Orders 24 hr Category Date Time Status Sodium Chloride 0.9% [Normal Saline] 1,000 ml Med 06/07/21 20:57 Active IV STAT Medication Orders Sodium Chloride (Normal Saline) 1,000 mls @ 250 mls/hr IV STAT ONE Stop: 06/08/21 00:56 Last Admin: 06/07/21 21:28 Dose: 250 mls/hr Documented by: LILLY Laboratory Tests 06/07/21 06/07/21 06/07/21 Range/Units 21:08 21:43 21:43 WBC 8.54 (4.0-11.0) K/uL RBC 3.83 L (4.30-5.90) M/uL Hgb 11.4 L (12.0-16.0) g/dL Hct 34.7 L (36.0-46.0) % MCV 90.6 (80.0-98.0) fL MCH 29.8 (27.0-32.0) pg MCHC 32.9 (31.0-37.0) g/dL RDW Std Deviation 51.1 (28.0-62.0) fl RDW Coeff of Jeannette 16 H (11.0-15.0) % Plt Count 215 (150-400) K/uL MPV 10.30 (7.40-12.00) fL Neut % (Auto) 70.4 (48.0-80.0) % Lymph % (Auto) 22.5 (16.0-40.0) % [place] % (Auto) 6.9 (0.0-15.0) % Eos % (Auto) 0.1 (0.0-7.0) % Baso % (Auto) 0.1 (0.0-1.5) % Neut # (Auto) 6.0 H (1.4-5.7) K/uL Lymph # (Auto) 1.9 (0.6-2.4) K/uL [place] # (Auto) 0.6 (0.0-0.8) K/uL Eos # (Auto) 0.0 (0.0-0.7) K/uL Baso # (Auto) 0.0 (0.0-0.1) K/uL Nucleated RBC % 0.0 /100WBC Nucleated RBCs # 0 K/uL Sodium 141 (136-145) mmol/L Potassium 3.8 (3.5-5.1) mmol/L Chloride 101 (98-107) mmol/L Carbon Dioxide 28.7 (21.0-32.0) mmol/L BUN 18 (7.0-18.0) mg/dL Creatinine 1.3 H (0.6-1.0) mg/dL Est Cr Clr Drug Dosing 45.87 mL/min Estimated GFR (MDRD) 51.0 ml/min Glucose 94 (74-106) mg/dL Calcium 10.0 (8.5-10.1) mg/dL Magnesium 1.7 L (1.8-2.4) mg/dL Total Bilirubin 0.4 (0.2-1.0) mg/dL AST 33 (15-37) IU/L ALT 37 (14-63) IU/L Alkaline Phosphatase 58 (46-116) U/L Total Protein 7.3 (6.4-8.2) g/dL Albumin 3.8 (3.4-5.0) g/dL Globulin 3.5 (2.6-4.0) g/dL Albumin/Globulin Ratio 1.1 (0.9-1.6) TSH, Ultra Sensitive 0.43 (0.36-3.74) uIU/mL Urine Color Urine Appearance Urine pH (5.0-8.0) Ur Specific [place] (1.001-1.035) Urine Protein (NEGATIVE) mg/dL Urine Glucose (UA) (NEGATIVE) mg/dL Urine Ketones (NEGATIVE) mg/dL Urine Occult Blood (NEGATIVE) Urine Nitrite (NEGATIVE) Urine Bilirubin (NEGATIVE) Urine Urobilinogen (<2.0) EU/dL Ur Leukocyte Esterase (NEGATIVE) Urine RBC (0-2/HPF) Urine WBC (0-5/HPF) Ur Epithelial Cells (NONE-FEW) Urine Bacteria (NEGATIVE) Urine HCG, Qual (NEGATIVE) Salicylates 3.0 (0-20) mg/dL Urine Opiates Screen (NEGATIVE) Ur Oxycodone Screen (NEGATIVE) Urine Methadone Screen (NEGATIVE) Acetaminophen <2.0 ug/mL Ur Barbiturates Screen (NEGATIVE) Ur Phencyclidine Scrn (NEGATIVE) Ur Amphetamine Screen (NEGATIVE) U Methamphetamines Scrn (NEGATIVE) U Benzodiazepines Scrn (NEGATIVE) U Cocaine Metab Screen (NEGATIVE) U Marijuana (THC) Screen (NEGATIVE) Ethyl Alcohol 212 mg/dL SARS-CoV-2 RNA ([place]) NEGATIVE (NEGATIVE) 06/07/21 06/07/21 06/07/21 Range/Units 22:33 22:33 22:33 WBC (4.0-11.0) K/uL RBC (4.30-5.90) M/uL Hgb (12.0-16.0) g/dL Hct (36.0-46.0) % MCV (80.0-98.0) fL MCH (27.0-32.0) pg MCHC (31.0-37.0) g/dL RDW Std Deviation (28.0-62.0) fl RDW Coeff of Jeannette (11.0-15.0) % Plt Count (150-400) K/uL MPV (7.40-12.00) fL Neut % (Auto) (48.0-80.0) % Lymph % (Auto) (16.0-40.0) % [place] % (Auto) (0.0-15.0) % Eos % (Auto) (0.0-7.0) % Baso % (Auto) (0.0-1.5) % Neut # (Auto) (1.4-5.7) K/uL Lymph # (Auto) (0.6-2.4) K/uL [place] # (Auto) (0.0-0.8) K/uL Eos # (Auto) (0.0-0.7) K/uL Baso # (Auto) (0.0-0.1) K/uL Nucleated RBC % /100WBC Nucleated RBCs # K/uL Sodium (136-145) mmol/L Potassium (3.5-5.1) mmol/L Chloride (98-107) mmol/L Carbon Dioxide (21.0-32.0) mmol/L BUN (7.0-18.0) mg/dL Creatinine (0.6-1.0) mg/dL Est Cr Clr Drug Dosing mL/min Estimated GFR (MDRD) ml/min Glucose (74-106) mg/dL Calcium (8.5-10.1) mg/dL Magnesium (1.8-2.4) mg/dL Total Bilirubin (0.2-1.0) mg/dL AST (15-37) IU/L ALT (14-63) IU/L Alkaline Phosphatase (46-116) U/L Total Protein (6.4-8.2) g/dL Albumin (3.4-5.0) g/dL Globulin (2.6-4.0) g/dL Albumin/Globulin Ratio (0.9-1.6) TSH, Ultra Sensitive (0.36-3.74) uIU/mL Urine Color YELLOW Urine Appearance CLEAR Urine pH 7.0 (5.0-8.0) Ur Specific [place] 1.010 (1.001-1.035) Urine Protein NEGATIVE (NEGATIVE) mg/dL Urine Glucose (UA) NEGATIVE (NEGATIVE) mg/dL Urine Ketones NEGATIVE (NEGATIVE) mg/dL Urine Occult Blood TRACE-INTACT H (NEGATIVE) Urine Nitrite NEGATIVE (NEGATIVE) Urine Bilirubin NEGATIVE (NEGATIVE) Urine Urobilinogen 0.2 (<2.0) EU/dL Ur Leukocyte Esterase NEGATIVE (NEGATIVE) Urine RBC 0-2 (0-2/HPF) Urine WBC NONE SEEN (0-5/HPF) Ur Epithelial Cells RARE (NONE-FEW) Urine Bacteria RARE (NEGATIVE) Urine HCG, Qual NEGATIVE (NEGATIVE) Salicylates (0-20) mg/dL Urine Opiates Screen NEGATIVE (NEGATIVE) Ur Oxycodone Screen NEGATIVE (NEGATIVE) Urine Methadone Screen NEGATIVE (NEGATIVE) Acetaminophen ug/mL Ur Barbiturates Screen NEGATIVE (NEGATIVE) Ur Phencyclidine Scrn NEGATIVE (NEGATIVE) Ur Amphetamine Screen NEGATIVE (NEGATIVE) U Methamphetamines Scrn NEGATIVE (NEGATIVE) U Benzodiazepines Scrn NEGATIVE (NEGATIVE) U Cocaine Metab Screen NEGATIVE (NEGATIVE) U Marijuana (THC) Screen NEGATIVE (NEGATIVE) Ethyl Alcohol mg/dL SARS-CoV-2 RNA ([place]) (NEGATIVE) Medications Generic Name Dose Route Start Last Admin Trade Name Freq PRN Reason Stop Dose Admin Sodium Chloride 1,000 mls @ 250 mls/hr 06/07/21 20:57 06/07/21 21:28 Normal Saline IV 06/08/21 00:56 250 mls/hr STAT ONE Administration Discontinued Medications Generic Name Dose Route Start Last Admin Trade Name Freq PRN Reason Stop Dose Admin Acetaminophen 650 mg 06/07/21 21:57 06/07/21 22:04 Acetaminophen 325 Mg Tab PO 06/07/21 21:58 650 mg NOW ONE Administration Departure - Departure Time of Disposition: 00:00 Condition: Good Sepsis Event Note (ED) - Focused Exam Vital Signs: Vital Signs Temp Pulse Resp BP Pulse Ox 06/07/21 23:30 77 20 120/74 99 06/07/21 23:00 74 18 125/66 99 06/07/21 22:30 74 18 126/76 100 06/07/21 22:00 76 18 125/77 100 06/07/21 21:30 78 20 127/78 100 06/07/21 21:00 80 20 142/85 H 99 06/07/21 20:54 36.9 C 86 20 134/77 96
[2021-06-07] MEDS ORDERED: Acetaminophen 325 MG Tab PO ONE (21:57)
[2021-06-07 22:26] LABS: ACETAMINOPHEN <2.0 ug/mL; BLOOD UREA NITROGEN,BUN 18 mg/dL (7.0-18.0); CARBON DIOXIDE,CO2 28.7 mmol/L (21.0-32.0); CHLORIDE,CL 101 mmol/L (98-107); GLUCOSE RANDOM 94 mg/dL (74-106); POTASSIUM,K 3.8 mmol/L (3.5-5.1); SODIUM,NA 141 mmol/L (136-145)
--- NOTE | 2021-06-07 22:27 | CT ---
INDICATION: Fall, hit head TECHNIQUE: CT Head without i.v. contrast. Coronal and sagittal reformats were obtained. COMPARISON: None FINDINGS: CSF space: The ventricles are normal for age. Brain: There is an 8 mm chronic lacunar infarct present within the right ava and small chronic lacunar infarcts seen in the left basal ganglia. No mass-effect or midline shift is seen. Scattered calcification of the dura and anterior interhemispheric fissure noted. Calvarium: The visualized paranasal sinuses are well aerated. The mastoid air cells are clear. The visualized orbits are grossly unremarkable. The calvarium is unremarkable in appearance with no fractures identified. IMPRESSION: 1. No evidence of acute infarction, intracranial hemorrhage, or mass-effect seen. Dictated by Pratik Lizama MD @ 06/07/2021 10:26:14 PM Please note that all CT scans at this facility use dose modulation, iterative reconstruction, and/or weight-based dosing when appropriate to reduce radiation dose to as low as reasonably achievable. Dictated by: Pratik Lizama MD @ 06/07/2021 22:26:23 (Electronically Signed)
--- NOTE | 2021-06-07 22:29 | CR ---
INDICATION: Chest pain, shortness of breath TECHNIQUE: Chest radiograph 1 view COMPARISON: 06/04/2021 FINDINGS: The sensitivity and specificity of the exam are moderately limited by the patient`s body habitus. Mediastinum: The mediastinum is normal in appearance. Mild cardiomegaly is noted without interval change. Lung: Both lungs are unremarkable in appearance. No sign of pleural effusion seen. No pneumothorax is identified. Bone and Soft tissue: Unremarkable for age. IMPRESSION: 1. Mild cardiomegaly is noted without interval change. Dictated by Pratik Lizama MD @ 06/07/2021 10:26:57 PM Dictated by: Pratik Lizama MD @ 06/07/2021 22:27:02 (Electronically Signed)
[2021-06-08 00:31] VITALS: BP 127/85; PULSE 75
== END 2021-06-08 00:48 | disposition critical access hospital (66) ==
LOC: MW.ED 20:50
DX: F10.10 Alcohol abuse, uncomplicated (principal); F32.9 Major depressive disorder, single episode, unspecified; I25.10 Atherosclerotic heart disease of native coronary artery without angina pectoris; E78.00 Pure hypercholesterolemia, unspecified; I10 Essential (primary) hypertension; I25.2 Old myocardial infarction; E11.9 Type 2 diabetes mellitus without complications; Z86.73 Personal history of transient ischemic attack (TIA), and cerebral infarction without residual deficits; Z79.84 Long term (current) use of oral hypoglycemic drugs; Z79.82 Long term (current) use of aspirin; Z79.899 Other long term (current) drug therapy; Z20.822 Contact with and (suspected) exposure to COVID-19
CPT/HCPCS: 36415; 70450; 71045; 80053; 80143; 80179; 80305; 80307; 81001; 81025; 83735; 84443; 85025; 87635; 99285; A9270; J7030; U0002

== ENCOUNTER 2021-07-06 18:17 | Emergency (ER) | payer MEDICAID ==
--- NOTE | 2021-07-06 18:19 | EDM.PDOC ---
<Wilberto Cox - Last Filed: 07/06/21 18:28> ED HPI GENERAL MEDICAL PROBLEM - General Stated Complaint: CHEST PAIN Time Seen by Provider: 07/06/21 18:17 Source of Information: Reports: Patient History Limitations: Reports: No Limitations - History of Present Illness INITIAL COMMENTS - FREE TEXT/NARRATIVE: 56-year-old female past medical history hypertension, [place], CVA, hyperlipidemia, type 2 diabetes, asthma, alcohol abuse presents for chest pain. Patient did have a recent admission for chest pain work-up. Patient has several ER visits for similar this year. Patient states that she was outside walking around 2 PM when she began to experience a mid substernal chest pain. Its described as heaviness. She called EMS and she was given nitroglycerin and aspirin prior to arrival. She states that her pain is currently much better after the nitroglycerin. She notes that she had a stress test in May but she is uncertain of the results. She states that she was supposed to get a cardiac catheterization but she missed her appointment. She also complains of pain in her right knee and swelling although she denies any falls or injury. She does endorse some shortness of breath. chest Pain Score (Numeric/FACES): 6 right knee Pain Score (Numeric/FACES): 10 - Related Data Allergies Allergy/AdvReac Type Severity Reaction Status Date / Time No Known Allergies Allergy Verified 07/06/21 18:22 Home Meds: Home Meds atorvaSTATin [Lipitor] 40 mg PO BEDTIME 90 Days #30 tab 04/18/18 [Rx] Glimepiride [Amaryl] 2 mg PO DAILY 07/22/18 [History] metFORMIN HCl [Metformin HCl] 500 mg PO BID 06/23/19 [History] Aspirin [Aspirin EC] 81 mg PO DAILY 11/08/20 [History] Fluticasone Propion/Salmeterol [Advair 250-50 Diskus] 1 inh IH BID 03/30/21 [History] Albuterol Sulfate [Proair Hfa] 1 - 2 inh IH Q4H PRN #1 inh 06/07/21 [Rx] Albuterol [Proventil Neb Soln] 2.5 mg NEB Q4HRRT PRN #50 cup 06/07/21 [Rx] Lisinopril/Hydrochlorothiazide [Lisinopril-HCTZ 10-12.5 MG] 10 - 12.5 mg PO DAILY #30 tab 06/07/21 [Rx] Montelukast [Singulair] 10 mg PO BEDTIME #30 06/07/21 [Rx] predniSONE [Prednisone] 40 mg PO DAILY 3 Days #6 tablet 06/07/21 [Rx] traMADol [Ultram] 50 mg PO Q6H PRN #7 tab 07/06/21 [Rx] Past Medical History - Past Health History Medical/Surgical History: Denies Medical/Surgical History HEENT History: Reports: Other (See Below) Other HEENT History: ear infection Cardiovascular History: Reports: CAD, High Cholesterol, Hypertension, [place] Respiratory History: Reports: Asthma, Sleep Apnea Gastrointestinal History: Reports: GERD Genitourinary History: Reports: None HAMMERER TAB History: Reports: Other HAMMERER TAB History: 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 Musculoskeletal History: Reports: Other (See Below) Other Musculoskeletal History: ankle fracture - 2013 Neurological History: Reports: TIA Psychiatric History: Reports: None Endocrine/Metabolic History: Reports: Diabetes, Type II Hematologic History: Reports: None Immunologic History: Reports: None Oncologic (Cancer) History: Reports: None Dermatologic History: Reports: None - Infectious Disease History Infectious Disease History: Reports: Chicken Pox, Measles, Mumps - Past Surgical History Head Surgeries/Procedures: Reports: None HEENT Surgical History: Reports: None Cardiovascular Surgical History: Reports: None Respiratory Surgical History: Reports: None GI Surgical History: Reports: None Female Surgical History: Reports: None Endocrine Surgical History: Reports: None Neurological Surgical History: Reports: None Musculoskeletal Surgical History: Reports: Other (See Below) Other Musculoskeletal Surgeries/Procedures:: broke Left ankle Dermatological Surgical History: Reports: None Social & Family History - Family History Family Medical History: No Pertinent Family History Cardiac: Reports: Hypertension, [place] Respiratory: Reports: Asthma OBGYN: Reports: Musculoskeletal: Reports: Arthritis Neurological: Reports: CVA Endocrine/Metabolic: Reports: Diabetes, type II - Caffeine Use Caffeine Use: Reports: None ED ROS GENERAL - Review of Systems Review Of Systems: Comprehensive ROS is negative, except as noted in HPI. ED EXAM, GENERAL - Physical Exam Exam: See Below Exam Limited By: No Limitations General Appearance: Alert, WD/WN, No Apparent Distress Ears: Hearing Grossly Normal Throat/Mouth: Normal Voice, No Airway Compromise Head: Atraumatic, Normocephalic Respiratory/Chest: No Respiratory Distress, No Accessory Muscle Use, Wheezing Cardiovascular: Normal Peripheral Pulses, Regular Rate, Rhythm, No Edema Extremities: Other (mild swelling of R knee without TTP or palpable deformity) Neurological: Alert, Normal Cognition Psychiatric: Normal Affect, Normal Mood Skin Exam: Warm, Dry, Intact, Normal Color #1 Interpretation EKG Date: 07/06/21 Time: 18:15 Rhythm: NSR Rate (Beats/Min): 88 Rewey: Normal P-Wave: Present QRS: Normal ST-T: Normal QT: Normal NH/PQ Interval: 136 Comparison: No Change EKG Interpretation Comments: RBBB and LAFB; no acute ischemic changes. 1x PVC Departure - Departure Disposition: Home, Self-Care 01 Clinical Impression: Atypical chest pain, Right knee pain, COPD exacerbation - Discharge Information Instructions: Nonspecific Chest Pain, Adult, Chronic Knee Pain, Adult, Dnup-be-Cfcp, Chronic Obstructive Pulmonary Disease Additional Instructions: Your seen and evaluated the ER today secondary to chest discomfort. Your blood tests, EKG and x-ray have all been normal. The pain that you are experiencing does not appear to be cardiac in origin. You have been given a prescription for Ultram to help you with your pain and discomfort. Please make an appointment see your family doctor this week for reevaluation. The following information is given to patients seen in the emergency department who are being discharged to home. This information is to outline your options for follow-up care. We provide all patients seen in our emergency department with a follow-up referral. The need for follow-up, as well as the timing and circumstances, are variable depending upon the specifics of your emergency department visit. If you don't have a primary care physician on staff, we will provide you with a referral. We always advise you to contact your personal physician following an emergency department visit to inform them of the circumstance of the visit and for follow-up with them and/or the need for any referrals to a consulting specialist. The emergency department will also refer you to a specialist when appropriate. This referral assures that you have the opportunity for follow-up care with a specialist. All of these measure are taken in an effort to provide you with optimal care, which includes your follow-up. Under all circumstances we always encourage you to contact your private physician who remains a resource for coordinating your care. When calling for follow-up care, please make the office aware that this follow-up is from your recent emergency room visit. If for any reason you are refused follow-up, please contact the [facility] Emergency Department at and asked to speak to the emergency department charge nurse. [facility] - Primary [facility] [address] [place] [address] [facility] [address] [place] [address] <Kurt Reyes - Last Filed: 07/06/21 21:48> ED HPI GENERAL MEDICAL PROBLEM - History of Present Illness INITIAL COMMENTS - FREE TEXT/NARRATIVE: 9:44 PM: Signout received 7 PM. Patient's labs were all been within normal limits. Patient's EKG did not reveal any evidence of ischemia. Patient had a 2-hour troponin level that was negative. Patient has been seen and evaluated in the ER in the past for atypical chest pain. Patient's pain has been persistent throughout the entire ER visit and her troponin has not changed. Patient's pain is reproducible with palpation and with deep inspiration. Patient presentation appears to be extremely atypical for cardiac etiology given the persistence without change and no change in her troponin. At this time, feel the patient can be safely sent home with resumed outpatient evaluation with cardiology and her primary care physician. Patient has been given a dose of tramadol in the ED to assist her with her knee pain and chest wall pain. Reassessment at the time of disposition demonstrates that the patient is in no acute distress. The patient has remained stable throughout the entire ED visit and is without objective evidence for acute process requiring urgent intervention or hospitalization. The patient is stable for discharge, counseling is provided as documented above, discussed symptomatic treatment and specific conditions for return. I have spoken with the patient/caregiver and discussed todays findings, in addition to providing specific details for the plan of care. Questions are answered and there is agreement with the plan. ED ROS GENERAL - Review of Systems Review Of Systems: See Below ED EXAM, GENERAL - Physical Exam Exam: See Below Course - Vital Signs Last Recorded V/S: Last Vital Signs Temp 97.9 F 07/06/21 18:18 Pulse 71 07/06/21 21:15 Resp 18 07/06/21 21:15 BP 154/96 H 07/06/21 21:15 Pulse Ox 96 07/06/21 21:15 - Orders/Labs/Meds Orders: Active Orders 24 hr Category Date Time Status RT Aerosol Therapy [RC] ASDIRECTED Care 07/06/21 19:02 Active Saline Lock Insert [OM.PC] Stat Oth 07/06/21 18:24 Ordered Labs: Laboratory Tests 07/06/21 07/06/21 07/06/21 Range/Units 18:25 18:25 20:40 WBC 7.34 (4.0-11.0) K/uL RBC 3.90 L (4.30-5.90) M/uL Hgb 11.4 L (12.0-16.0) g/dL Hct 35.8 L (36.0-46.0) % MCV 91.8 (80.0-98.0) fL MCH 29.2 (27.0-32.0) pg MCHC 31.8 (31.0-37.0) g/dL RDW Std Deviation 52.2 (28.0-62.0) fl RDW Coeff of Jeannette 16 H (11.0-15.0) % Plt Count 224 (150-400) K/uL MPV 10.40 (7.40-12.00) fL Neut % (Auto) 65.0 (48.0-80.0) % Lymph % (Auto) 23.6 (16.0-40.0) % Elliott % (Auto) 9.7 (0.0-15.0) % Eos % (Auto) 1.6 (0.0-7.0) % Baso % (Auto) 0.1 (0.0-1.5) % Neut # (Auto) 4.8 (1.4-5.7) K/uL Lymph # (Auto) 1.7 (0.6-2.4) K/uL Elliott # (Auto) 0.7 (0.0-0.8) K/uL Eos # (Auto) 0.1 (0.0-0.7) K/uL Baso # (Auto) 0.0 (0.0-0.1) K/uL Nucleated RBC % 0.0 /100WBC Nucleated RBCs # 0 K/uL Sodium 144 (136-145) mmol/L Potassium 4.4 (3.5-5.1) mmol/L Chloride 109 H (98-107) mmol/L Carbon Dioxide 21.1 (21.0-32.0) mmol/L BUN 16 (7.0-18.0) mg/dL Creatinine 1.4 H (0.6-1.0) mg/dL Est Cr Clr Drug Dosing 41.00 mL/min Estimated GFR (MDRD) 46.8 ml/min Glucose 91 (74-106) mg/dL Calcium 8.7 (8.5-10.1) mg/dL Total Bilirubin 0.3 (0.2-1.0) mg/dL AST 18 (15-37) IU/L ALT 15 (14-63) IU/L Alkaline Phosphatase 60 (46-116) U/L Troponin I < 0.050 < 0.050 (0.000-0.056) ng/mL Total Protein 6.8 (6.4-8.2) g/dL Albumin 3.2 L (3.4-5.0) g/dL Globulin 3.6 (2.6-4.0) g/dL Albumin/Globulin Ratio 0.9 (0.9-1.6) Ethyl Alcohol < 3.0 mg/dL Meds: Medications Discontinued Medications Generic Name Dose Route Start Last Admin Trade Name Freq PRN Reason Stop Dose Admin Albuterol/Ipratropium 3 ml 07/06/21 19:02 07/06/21 19:21 Albuterol/Ipratropium 3.0-0.5 Mg/3 Ml Neb Soln NEB 07/06/21 19:03 3 ml ONETIME ONE Administration Tramadol HCl 50 mg 07/06/21 21:11 07/06/21 21:14 Tramadol 50 Mg Tab PO 07/06/21 21:12 50 mg ONETIME ONE Administration Departure - Departure Time of Disposition: 21:45 Condition: Good Sepsis Event Note (ED) - Focused Exam Vital Signs: Vital Signs Temp Pulse Resp BP Pulse Ox 07/06/21 21:15 71 18 154/96 H 96 07/06/21 19:27 81 18 161/90 H 97 07/06/21 18:18 97.9 F 83 18 149/80 H 95
[2021-07-06] MEDS ORDERED: Albuterol/Ipratropium 3.0-0.5 MG/3 ML Neb Soln NEB ONE (19:02)
[2021-07-06 19:07] LABS: BLOOD UREA NITROGEN,BUN 16 mg/dL (7.0-18.0); CARBON DIOXIDE,CO2 21.1 mmol/L (21.0-32.0); CHLORIDE,CL 109 mmol/L (98-107); GLUCOSE RANDOM 91 mg/dL (74-106); POTASSIUM,K 4.4 mmol/L (3.5-5.1); SODIUM,NA 144 mmol/L (136-145)
--- NOTE | 2021-07-06 19:18 | CR ---
INDICATION: Chest pain TECHNIQUE: Chest 1 view Comparison: 06/07/2021 Findings: Mild cardiomegaly is similar to prior. No focal lung consolidation, pleural effusion or pneumothorax. Degenerative changes in the spine are again noted. Impression: Stable mild cardiomegaly. Otherwise no acute cardiopulmonary abnormality. Dictated by Kaleb Cabral MD @ 07/06/2021 7:17:03 PM (Electronically Signed)
--- NOTE | 2021-07-06 19:22 | CR ---
INDICATION: Atraumatic right knee pain. COMPARISON: None. TECHNIQUE: Right knee 3 views. FINDINGS: No acute fracture. Alignment is within normal limits. Tricompartmental osteophyte formation and joint space narrowing. Joint effusion on lateral view. Small ossific joint bodies. IMPRESSION: 1. Joint effusion. 2. No acute fracture. 3. Degenerative changes. Dictated by Kaleb Cabral MD @ 07/06/2021 7:21:36 PM (Electronically Signed)
[2021-07-06] MEDS ORDERED: traMADol 50 MG Tab PO ONE (21:11)
[2021-07-06 21:58] VITALS: BP 125/83; PULSE 84
== END 2021-07-06 22:00 | disposition home or self-care (01) ==
LOC: MW.ED 18:17
DX: J44.1 Chronic obstructive pulmonary disease with (acute) exacerbation (principal); R07.89 Other chest pain; M25.571 Pain in right ankle and joints of right foot; I25.2 Old myocardial infarction; I10 Essential (primary) hypertension; E78.00 Pure hypercholesterolemia, unspecified; E11.9 Type 2 diabetes mellitus without complications; I25.10 Atherosclerotic heart disease of native coronary artery without angina pectoris; Z79.82 Long term (current) use of aspirin; Z79.84 Long term (current) use of oral hypoglycemic drugs; Z79.899 Other long term (current) drug therapy
CPT/HCPCS: 36415; 71045; 73562; 80053; 80307; 84484; 85025; 93005; 94640; 99285; A9270; J7620-GY

== ENCOUNTER 2021-07-10 19:13 | Emergency (ER) | payer MEDICAID ==
[2021-07-10] MEDS ORDERED: Ketorolac 60 MG/2 ML SDV IM ONE (20:37)
--- NOTE | 2021-07-10 21:22 | EDM.PDOC ---
ED HPI GENERAL MEDICAL PROBLEM - General Chief Complaint: Lower Extremity Injury/Pain Stated Complaint: FOOT SWOLLEN Time Seen by Provider: 07/10/21 20:16 Source of Information: Reports: Patient History Limitations: Reports: No Limitations - History of Present Illness INITIAL COMMENTS - FREE TEXT/NARRATIVE: HISTORY AND PHYSICAL: History of present illness: The patient is a 56 year old female who presents to the emergency department with complaints of a left swollen painful first MTP joint that started on Tuesday, July 06, 2021. The patient has had this in the past and was diagnosed with gout. She is not on any preventative medicaiton and is not currently on steroids. Patient denies any fever, chills, headache, change in vision, syncope or near syncope. Denies any chest pain, back pain, shortness of breath or cough. Denies any abdominal pain, nausea, vomiting, diarrhea, constipation or dysuria. Has not noted any blood in urine or stool. Patient has been eating and drinking appropriately. Review of systems: As per history of present illness and below otherwise all systems reviewed and negative. Patient denies any fever, chills, headache, change in vision, syncope or near syncope. Denies any chest pain, back pain, shortness of breath or cough. Denies any abdominal pain, nausea, vomiting, diarrhea, constipation or dysuria. Has not noted any blood in urine or stool. Patient has been eating and drinking appropriately. Past medical history: As per history of present illness and as reviewed below otherwise noncontributory. Surgical history: As per history of present illness and as reviewed below otherwise noncontributory. Social history: See social history for further information Family history: As per history of present illness and as reviewed below otherwise noncontributory. Physical exam: General: Well developed and well nourished. Alert and orientated x 3. Nontoxic in appearance and in no acute distress. Vital signs are stable and have been reviewed by me. Nursing notes were reviewed. HEENT: Atraumatic, normocephalic, pupils equal and reactive bilaterally, negative for conjunctival pallor or scleral icterus, mucous membranes moist, TMs normal bilaterally, throat clear, neck supple, nontender, trachea midline. No drooling or trismus noted. No meningeal signs. No hot potato voice noted. Lungs: Clear to auscultation bilaterally. No wheezes, rales, or rhonchi. Chest nontender. Normal work of breathing, no accessory muscles used. Heart: S1S2, regular rate and rhythm without overt murmur, gallops, or rubs. No JVD. No peripheral edema Abdomen: Soft, nondistended, nontender. Normoactive bowel sounds. Negative for masses or costovertebral tenderness. Skin: Intact, warm, dry. No lesions or rashes noted. Hematologic: No petechiae or purpra. Mucosa appropriate color and normal nail bed color and refill. Extremities: Left great MTP joint swollen and erythematous. Tender to palpation. Moves all other extremities per self without difficulty or deficits, negative for cords or calf pain. Neurovascular unremarkable. Neuro: Awake, alert, oriented. Cranial nerves II through XII unremarkable. Cerebellum unremarkable. Motor and sensory unremarkable throughout. Exam nonfocal. Psychiatric: Mood and affect are appropriate. Normal thought process. Answering questions appropriately. Notes: *This patient was seen and evaluated during the 2019 SARS-CoV-2 novel coronavirus pandemic period. Community viral transmission is ongoing at time of this encounter and the emergency department is operating under pandemic response procedures. As stated above the patient is a 56-year-old female who presents to the emergency room with pain of her left great MTP joint that started on 07/06/2021. Patient has been diagnosed with gout in the past. After examination and obtaining history I have ordered lab work and will treat the patient in the emergency department for pain control. The patient's blood work was essentially normal except for the uric acid was elevated. left foot x-ray: No sign of acute osseous injury. Stable mild inferior and posterior calcaneal spurs. I will treat the patient with prednisone 40 mg daily for 6 days and hydrocodone 325/5 1 every 4 hours as needed for pain. I have informed the patient that she needs to follow-up with her primary care or so had a preventative treatment. We also talked about the possibility of GI upset and the possible need for Pepcid. I did inform the patient not to take any kind of NSAIDs while on the prednisone as this could cause GI bleed. The patient is agreeable with this discharge plan. I have talked with the patient about today's findings, in addition to providing specific details for plan of care. Reassessment at the time of disposition demonstrates that the patient is in no acute distress. The patient is stable for discharge, counseling was provided and we discussed in great detail signs and symptoms that would prompt them to return to the Emergency Department. Medication, follow up and supportive care measures were reviewed and discussed. Voices understanding and is agreeable to plan of care. Denies any further questions or concerns at this time. Diagnostics: CBC, CMP, uric acid, left foot x-ray Therapeutics: Toradol, prednisone, hydrocodone Prescription: Prednisone 40 mg 1 daily for 6 days, hydrocodone 325/5 1 every 4 hours as needed for pain gout Impression: Gout Plan: 1. You were evaluated today on an emergent basis. Your complaints of pain in your right base of your toe was found to be gout. I have started you on prednisone 40 mg for a total of 6 days. I have given you hydrocodone for pain control. You need to follow-up with your primary care doctor for more definitive treatment. Do not take any kind of aspirin or NSAIDs such as Motrin with the prednisone. This can cause you to have GI upset and lead to ulcers. If you cannot get pain relief please return to the emergency department. 2. You can alternate Tylenol and ibuprofen as needed for pain and fever management. 3. We encourage you to follow up with your primary care provider and/or recommended specialist in the next few days for re-evaluation and further care/management. 4. If your symptoms should worsen, new symptoms develop or any of the signs and symptoms we discussed should arise please return to the emergency room or call 911 (if needed). Definitive disposition and diagnosis as appropriate pending reevaluation and review of above. Have ordered lab work left foot x-ray Right Foot Pain Score (Numeric/FACES): 10 - Related Data Allergies Allergy/AdvReac Type Severity Reaction Status Date / Time No Known Allergies Allergy Verified 07/06/21 18:22 Home Meds: Home Meds atorvaSTATin [Lipitor] 40 mg PO BEDTIME 90 Days #30 tab 04/18/18 [Rx] Glimepiride [Amaryl] 2 mg PO DAILY 07/22/18 [History] metFORMIN HCl [Metformin HCl] 500 mg PO BID 06/23/19 [History] Aspirin [Aspirin EC] 81 mg PO DAILY 11/08/20 [History] Fluticasone Propion/Salmeterol [Advair 250-50 Diskus] 1 inh IH BID 03/30/21 [History] Albuterol Sulfate [Proair Hfa] 1 - 2 inh IH Q4H PRN #1 inh 06/07/21 [Rx] Albuterol [Proventil Neb Soln] 2.5 mg NEB Q4HRRT PRN #50 cup 06/07/21 [Rx] Lisinopril/Hydrochlorothiazide [Lisinopril-HCTZ 10-12.5 MG] 10 - 12.5 mg PO DAILY #30 tab 06/07/21 [Rx] Montelukast [Singulair] 10 mg PO BEDTIME #30 06/07/21 [Rx] predniSONE [Prednisone] 40 mg PO DAILY 3 Days #6 tablet 06/07/21 [Rx] traMADol [Ultram] 50 mg PO Q6H PRN #7 tab 07/06/21 [Rx] predniSONE [Prednisone] 40 mg PO DAILY 5 Days #10 tablet 07/10/21 [Rx] Past Medical History - Past Health History Medical/Surgical History: Denies Medical/Surgical History HEENT History: Reports: Other (See Below) Other HEENT History: ear infection Cardiovascular History: Reports: CAD, High Cholesterol, Hypertension, [place] Respiratory History: Reports: Asthma, Sleep Apnea Gastrointestinal History: Reports: GERD Genitourinary History: Reports: None MAIL LIST LIBRARIAN History: Reports: Other MAIL LIST LIBRARIAN History: 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 Musculoskeletal History: Reports: Other (See Below) Other Musculoskeletal History: ankle fracture - 2013 Neurological History: Reports: TIA Psychiatric History: Reports: None Endocrine/Metabolic History: Reports: Diabetes, Type II Hematologic History: Reports: None Immunologic History: Reports: None Oncologic (Cancer) History: Reports: None Dermatologic History: Reports: None - Infectious Disease History Infectious Disease History: Reports: Chicken Pox, Measles, Mumps - Past Surgical History Head Surgeries/Procedures: Reports: None HEENT Surgical History: Reports: None Cardiovascular Surgical History: Reports: None Respiratory Surgical History: Reports: None GI Surgical History: Reports: None Female Surgical History: Reports: None Endocrine Surgical History: Reports: None Neurological Surgical History: Reports: None Musculoskeletal Surgical History: Reports: Other (See Below) Other Musculoskeletal Surgeries/Procedures:: broke Left ankle Dermatological Surgical History: Reports: None Social & Family History - Family History Family Medical History: No Pertinent Family History Cardiac: Reports: Hypertension, [place] Respiratory: Reports: Asthma OBGYN: Reports: Musculoskeletal: Reports: Arthritis Neurological: Reports: CVA Endocrine/Metabolic: Reports: Diabetes, type II - Caffeine Use Caffeine Use: Reports: None Review of Systems - Review of Systems Review Of Systems: Comprehensive ROS is negative, except as noted in HPI. ED EXAM, GENERAL - Physical Exam Exam: See Below (See dictation) Course - Vital Signs Last Recorded V/S: Last Vital Signs Temp 97.5 F 07/10/21 20:13 Pulse 96 07/10/21 22:28 Resp 18 07/10/21 21:47 BP 153/76 H 07/10/21 22:28 Pulse Ox 99 07/10/21 22:28 - Orders/Labs/Meds Labs: Laboratory Tests 07/10/21 07/10/21 Range/Units 21:17 21:17 WBC 7.66 (4.0-11.0) K/uL RBC 4.06 L (4.30-5.90) M/uL Hgb 11.9 L (12.0-16.0) g/dL Hct 36.8 (36.0-46.0) % MCV 90.6 (80.0-98.0) fL MCH 29.3 (27.0-32.0) pg MCHC 32.3 (31.0-37.0) g/dL RDW Std Deviation 49.4 (28.0-62.0) fl RDW Coeff of Jeannette 15 (11.0-15.0) % Plt Count 237 (150-400) K/uL MPV 10.50 (7.40-12.00) fL Neut % (Auto) 65.9 (48.0-80.0) % Lymph % (Auto) 24.2 (16.0-40.0) % Yell % (Auto) 8.0 (0.0-15.0) % Eos % (Auto) 1.8 (0.0-7.0) % Baso % (Auto) 0.1 (0.0-1.5) % Neut # (Auto) 5.1 (1.4-5.7) K/uL Lymph # (Auto) 1.9 (0.6-2.4) K/uL Yell # (Auto) 0.6 (0.0-0.8) K/uL Eos # (Auto) 0.1 (0.0-0.7) K/uL Baso # (Auto) 0.0 (0.0-0.1) K/uL Nucleated RBC % 0.0 /100WBC Nucleated RBCs # 0 K/uL Sodium 141 (136-145) mmol/L Potassium 4.0 (3.5-5.1) mmol/L Chloride 103 (98-107) mmol/L Carbon Dioxide 24.1 (21.0-32.0) mmol/L BUN 19 H (7.0-18.0) mg/dL Creatinine 1.0 (0.6-1.0) mg/dL Est Cr Clr Drug Dosing TNP Estimated GFR (MDRD) > 60.0 ml/min Glucose 94 (74-106) mg/dL Uric Acid 8.5 H (2.6-7.2) mg/dL Calcium 9.5 (8.5-10.1) mg/dL Total Bilirubin 0.2 (0.2-1.0) mg/dL AST 18 (15-37) IU/L ALT 15 (14-63) IU/L Alkaline Phosphatase 94 (46-116) U/L Total Protein 7.5 (6.4-8.2) g/dL Albumin 3.4 (3.4-5.0) g/dL Globulin 4.1 H (2.6-4.0) g/dL Albumin/Globulin Ratio 0.8 L (0.9-1.6) Meds: Medications Discontinued Medications Generic Name Dose Route Start Last Admin Trade Name Freq PRN Reason Stop Dose Admin Hydrocodone Bitart/Acetaminophen 1 tab 07/10/21 22:16 07/10/21 22:28 Acetaminophen/Hydrocodone 325-5 Mg Tab PO 07/10/21 22:17 1 tab ONETIME ONE Administration Ketorolac Tromethamine 60 mg 07/10/21 20:37 07/10/21 20:49 Ketorolac 60 Mg/2 Ml Sdv IM 07/10/21 20:38 60 mg ONETIME ONE Administration Prednisone 40 mg 07/10/21 22:15 07/10/21 22:27 Prednisone 20 Mg Tab PO 07/10/21 22:16 40 mg ONETIME ONE Administration Departure - Departure Time of Disposition: 22:24 Disposition: Home, Self-Care 01 Condition: Good Clinical Impression: Gout Qualifiers: Gout site: foot Gout etiology: unspecified cause Chronicity: acute Laterality: right Qualified Code(s): M10.9 - Gout, unspecified - Discharge Information *PRESCRIPTION DRUG MONITORING PROGRAM REVIEWED*: Not Applicable *COPY OF PRESCRIPTION DRUG MONITORING REPORT IN PATIENT TREVOR: Not Applicable Prescriptions: predniSONE [Prednisone] 40 mg PO DAILY 5 Days #10 tablet Instructions: Gout Referrals: Ken Hand MD [Primary Care Provider] - Forms: ED Department Discharge Additional Instructions: The following information is given to patients seen in the emergency department who are being discharged to home. This information is to outline your options for follow-up care. We provide all patients seen in our emergency department with a follow-up referral. The need for follow-up, as well as the timing and circumstances, are variable depending upon the specifics of your emergency department visit. If you don't have a primary care physician on staff, we will provide you with a referral. We always advise you to contact your personal physician following an emergency department visit to inform them of the circumstance of the visit and for follow-up with them and/or the need for any referrals to a consulting specialist. The emergency department will also refer you to a specialist when appropriate. This referral assures that you have the opportunity for follow-up care with a specialist. All of these measure are taken in an effort to provide you with optimal care, which includes your follow-up. Under all circumstances we always encourage you to contact your private physician who remains a resource for coordinating your care. When calling for follow-up care, please make the office aware that this follow-up is from your recent emergency room visit. If for any reason you are refused follow-up, please contact the [facility] Emergency Department at and asked to speak to the emergency department charge nurse. [facility] [address] [place] [id number] [address] Plan: 1. You were evaluated today on an emergent basis. Your complaints of pain in your right base of your toe was found to be gout. I have started you on prednisone 40 mg for a total of 6 days. I have given you hydrocodone for pain control. You need to follow-up with your primary care doctor for more definitive treatment. Do not take any kind of aspirin or NSAIDs such as Motrin with the prednisone. This can cause you to have GI upset and lead to ulcers. If you cannot get pain relief please return to the emergency department. 2. You can alternate Tylenol and ibuprofen as needed for pain and fever management. 3. We encourage you to follow up with your primary care provider and/or recommended specialist in the next few days for re-evaluation and further ca re/management. 4. If your symptoms should worsen, new symptoms develop or any of the signs and symptoms we discussed should arise please return to the emergency room or call 911 (if needed). Sepsis Event Note (ED) - Evaluation Sepsis Screening Result: No Definite Risk
[2021-07-10 21:48] LABS: BLOOD UREA NITROGEN,BUN 19 mg/dL (7.0-18.0); CARBON DIOXIDE,CO2 24.1 mmol/L (21.0-32.0); CHLORIDE,CL 103 mmol/L (98-107); GLUCOSE RANDOM 94 mg/dL (74-106); SODIUM,NA 141 mmol/L (136-145)
[2021-07-10] MEDS ORDERED: predniSONE 20 MG Tab PO ONE (22:15)
[2021-07-10] MEDS ORDERED: Acetaminophen/HYDROcodone 325-5 MG Tab PO ONE (22:16)
--- NOTE | 2021-07-10 22:26 | CR ---
HISTORY: Swelling and pain. COMPARISON: Two views from 06/27/2020. FINDINGS: The right foot is examined with AP and lateral views. There is no sign of fracture or dislocation. The soft tissues are normal in appearance without sign of radio-opaque foreign body. Stable appearance of mild inferior and posterior calcaneal spurs. No additional degenerative change is seen. IMPRESSION: No sign of acute osseous injury. Stable mild inferior and posterior calcaneal spurs. Dictated by José hCávez MD @ 07/10/2021 10:24:52 PM (Electronically Signed)
[2021-07-10 22:29] VITALS: BP 153/76; PULSE 96
== END 2021-07-10 22:43 | disposition home or self-care (01) ==
LOC: MW.ED 19:13
DX: M10.9 Gout, unspecified (principal); I25.10 Atherosclerotic heart disease of native coronary artery without angina pectoris; E78.00 Pure hypercholesterolemia, unspecified; I10 Essential (primary) hypertension; E11.9 Type 2 diabetes mellitus without complications; I25.2 Old myocardial infarction; Z86.73 Personal history of transient ischemic attack (TIA), and cerebral infarction without residual deficits; Z79.82 Long term (current) use of aspirin; Z79.899 Other long term (current) drug therapy
CPT/HCPCS: 36415; 73620; 80053; 84550; 85025; 96372; 99283; A9270; J1885

== ENCOUNTER 2021-07-26 16:23 | Emergency (ER) | payer MEDICAID ==
[2021-07-26] MEDS ORDERED: Acetaminophen/oxyCODONE 325-5 MG Tab PO ONE (19:00)
[2021-07-26] MEDS ORDERED: methylPREDNISolone Sodium Succinate 125 MG/2 ML SDV IM ONE (19:00)
[2021-07-26] MEDS ORDERED: Albuterol/Ipratropium 3.0-0.5 MG/3 ML Neb Soln NEB ONE (19:00)
[2021-07-26] MEDS ORDERED: Ibuprofen 600 MG Tab PO ONE (19:00)
--- NOTE | 2021-07-26 19:05 | EDM.PDOC ---
ED HPI GENERAL MEDICAL PROBLEM - General Chief Complaint: Lower Extremity Injury/Pain Stated Complaint: RT FOOT PAIN Time Seen by Provider: 07/26/21 18:56 Source of Information: Reports: Patient History Limitations: Reports: No Limitations - History of Present Illness INITIAL COMMENTS - FREE TEXT/NARRATIVE: 56F well known to ED PMHx asthma, gout presents for b/l foot pain and wheezing. Patient notes foot pain for several weeks. Has been treated for gout in past and feels similar. Notes wheezing but denies SOB and requests breathing treatment. No fevers, CP. Right Foot Pain Score (Numeric/FACES): 10 - Related Data Allergies Allergy/AdvReac Type Severity Reaction Status Date / Time No Known Allergies Allergy Verified 07/26/21 16:54 Home Meds: Home Meds RX: atorvaSTATin [Lipitor] 40 mg PO BEDTIME 90 Days #30 tab 04/18/18 [Rx] RX: Glimepiride [Amaryl] 2 mg PO DAILY 07/22/18 [History] RX: metFORMIN HCl [Metformin HCl] 500 mg PO BID 06/23/19 [History] RX: Aspirin [Aspirin EC] 81 mg PO DAILY 11/08/20 [History] RX: Fluticasone Propion/Salmeterol [Advair 250-50 Diskus] 1 inh IH BID 03/30/21 [History] RX: Albuterol Sulfate [Proair Hfa] 1 - 2 inh IH Q4H PRN #1 inh 06/07/21 [Rx] RX: Albuterol [Proventil Neb Soln] 2.5 mg NEB Q4HRRT PRN #50 cup 06/07/21 [Rx] RX: Lisinopril/Hydrochlorothiazide [Lisinopril-HCTZ 10-12.5 MG] 10 - 12.5 mg PO DAILY #30 tab 06/07/21 [Rx] RX: Montelukast [Singulair] 10 mg PO BEDTIME #30 06/07/21 [Rx] RX: predniSONE [Prednisone] 40 mg PO DAILY 3 Days #6 tablet 06/07/21 [Rx] traMADol [Ultram] 50 mg PO Q6H PRN #7 tab 07/06/21 [Rx] predniSONE [Prednisone] 40 mg PO DAILY 5 Days #10 tablet 07/10/21 [Rx] Acetaminophen/oxyCODONE [Percocet 325-5 MG] 1 each PO Q6H PRN #18 tab 07/26/21 [Rx] Ibuprofen [Motrin] 600 mg PO Q6H PRN #20 tab 07/26/21 [Rx] RX: predniSONE 40 mg PO DAILY 5 Days #10 tab 07/26/21 [Rx] Past Medical History - Past Health History Medical/Surgical History: Denies Medical/Surgical History HEENT History: Reports: Other (See Below) Other HEENT History: ear infection Cardiovascular History: Reports: CAD, High Cholesterol, Hypertension, [place] Respiratory History: Reports: Asthma, Sleep Apnea Gastrointestinal History: Reports: GERD Genitourinary History: Reports: None SUPPORT GROUP MANAGER History: Reports: Other SUPPORT GROUP MANAGER History: 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 Musculoskeletal History: Reports: Other (See Below) Other Musculoskeletal History: ankle fracture - 2013 Neurological History: Reports: TIA Psychiatric History: Reports: None Endocrine/Metabolic History: Reports: Diabetes, Type II Hematologic History: Reports: None Immunologic History: Reports: None Oncologic (Cancer) History: Reports: None Dermatologic History: Reports: None - Infectious Disease History Infectious Disease History: Reports: Chicken Pox, Measles, Mumps - Past Surgical History Head Surgeries/Procedures: Reports: None HEENT Surgical History: Reports: None Cardiovascular Surgical History: Reports: None Respiratory Surgical History: Reports: None GI Surgical History: Reports: None Female Surgical History: Reports: None Endocrine Surgical History: Reports: None Neurological Surgical History: Reports: None Musculoskeletal Surgical History: Reports: Other (See Below) Other Musculoskeletal Surgeries/Procedures:: broke Left ankle Dermatological Surgical History: Reports: None Social & Family History - Family History Family Medical History: No Pertinent Family History Cardiac: Reports: Hypertension, [place] Respiratory: Reports: Asthma OBGYN: Reports: Musculoskeletal: Reports: Arthritis Neurological: Reports: CVA Endocrine/Metabolic: Reports: Diabetes, type II - Caffeine Use Caffeine Use: Reports: Coffee Review of Systems - Review of Systems Review Of Systems: Comprehensive ROS is negative, except as noted in HPI. ED EXAM, GENERAL - Physical Exam Exam: See Below Exam Limited By: No Limitations General Appearance: Alert, WD/WN, No Apparent Distress Ears: Hearing Grossly Normal Throat/Mouth: Normal Voice, No Airway Compromise Head: Atraumatic, Normocephalic Respiratory/Chest: No Respiratory Distress, No Accessory Muscle Use, Wheezing Cardiovascular: Normal Peripheral Pulses, Regular Rate, Rhythm Extremities: Other (mild swelling and warmth of R dorsal foot by toe consistent with h/o gout) Neurological: Alert, Normal Cognition Psychiatric: Normal Affect, Normal Mood Course - Vital Signs Last Recorded V/S: Last Vital Signs Temp 97.3 F 07/26/21 16:55 Pulse 86 07/26/21 16:55 Resp 16 07/26/21 16:55 BP 172/79 H 07/26/21 16:55 Pulse Ox 97 07/26/21 16:55 - Orders/Labs/Meds Orders: Active Orders 24 hr Category Date Time Status RT Aerosol Therapy [RC] ASDIRECTED Care 07/26/21 19:01 Active Meds: Medications Discontinued Medications Generic Name Dose Route Start Last Admin Trade Name Freq PRN Reason Stop Dose Admin Albuterol/Ipratropium 3 ml 07/26/21 19:00 07/26/21 19:09 Albuterol/Ipratropium 3.0-0.5 Mg/3 Ml Neb Soln NEB 07/26/21 19:01 3 ml ONETIME ONE Administration Ibuprofen 600 mg 07/26/21 19:00 07/26/21 19:09 Ibuprofen 600 Mg Tab PO 07/26/21 19:01 600 mg ONETIME ONE Administration Methylprednisolone Sodium Succinate 125 mg 07/26/21 19:00 07/26/21 19:09 Methylprednisolone Sodium Succinate 125 Mg/2 Ml Sdv IM 07/26/21 19:01 125 mg ONETIME ONE Administration Oxycodone/Acetaminophen 2 tab 07/26/21 19:00 07/26/21 19:09 Acetaminophen/Oxycodone 325-5 Mg Tab PO 07/26/21 19:01 2 tab ONETIME ONE Administration - Re-Assessments/Exams Free Text/Narrative Re-Assessment/Exam: 07/26/21 19:04 Will treat for gout. Will give breathing treatment. Departure - Departure Time of Disposition: 19:23 Disposition: Home, Self-Care 01 Condition: Good Clinical Impression: Gout Qualifiers: Gout site: foot Gout etiology: unspecified cause Chronicity: acute Laterality: right Qualified Code(s): M10.9 - Gout, unspecified Asthma Qualifiers: Asthma severity: unspecified severity Asthma persistence: unspecified Asthma complication type: unspecified Qualified Code(s): J45.909 - Unspecified asthma, uncomplicated - Discharge Information Prescriptions: Ibuprofen [Motrin] 600 mg PO Q6H PRN #20 tab PRN Reason: Pain Acetaminophen/oxyCODONE [Percocet 325-5 MG] 1 each PO Q6H PRN #18 tab PRN Reason: Pain RX: predniSONE 40 mg PO DAILY 5 Days #10 tab Instructions: Gout, [id number] Referrals: Ken Hand MD [Primary Care Provider] - Forms: ED Department Discharge Additional Instructions: The following information is given to patients seen in the emergency department who are being discharged to home. This information is to outline your options for follow-up care. We provide all patients seen in our emergency department with a follow-up referral. The need for follow-up, as well as the timing and circumstances, are variable depending upon the specifics of your emergency department visit. If you don't have a primary care physician on staff, we will provide you with a referral. We always advise you to contact your personal physician following an emergency department visit to inform them of the circumstance of the visit and for follow-up with them and/or the need for any referrals to a consulting specialist. The emergency department will also refer you to a specialist when appropriate. This referral assures that you have the opportunity for follow-up care with a specialist. All of these measure are taken in an effort to provide you with optimal care, which includes your follow-up. Under all circumstances we always encourage you to contact your private physician who remains a resource for coordinating your care. When calling for follow-up care, please make the office aware that this follow-up is from your recent emergency room visit. If for any reason you are refused follow-up, please contact the [facility] Emergency Department at and asked to speak to the emergency department charge nurse. Please follow up with your primary care physician. If you do not have a primary care physician, see below: [facility] [address] [place] [id number] [facility] [address] [place] [id number] [facility] [address] [address] Sepsis Event Note (ED) - Evaluation Sepsis Screening Result: No Definite Risk - Focused Exam Vital Signs: Vital Signs Temp Pulse Resp BP Pulse Ox 07/26/21 16:55 97.3 F 86 16 172/79 H 97 - My Orders Last 24 Hours: My Active Orders 07/26/21 19:01 RT Aerosol Therapy [RC] ASDIRECTED - Assessment/Plan Last 24 Hours: My Active Orders 07/26/21 19:01 RT Aerosol Therapy [RC] ASDIRECTED
[2021-07-26 21:37] VITALS: BP 132/87; PULSE 89
== END 2021-07-26 19:40 | disposition home or self-care (01) ==
LOC: MW.ED 16:23
DX: M10.9 Gout, unspecified (principal); J45.909 Unspecified asthma, uncomplicated; I25.10 Atherosclerotic heart disease of native coronary artery without angina pectoris; E78.00 Pure hypercholesterolemia, unspecified; I10 Essential (primary) hypertension; I25.2 Old myocardial infarction; K21.9 Gastro-esophageal reflux disease without esophagitis; E11.9 Type 2 diabetes mellitus without complications; Z86.73 Personal history of transient ischemic attack (TIA), and cerebral infarction without residual deficits; Z79.82 Long term (current) use of aspirin; Z79.84 Long term (current) use of oral hypoglycemic drugs; Z79.899 Other long term (current) drug therapy
CPT/HCPCS: 96372; 99284; A9270; J2930; J7620-GY

== ENCOUNTER 2021-08-27 11:44 | Observation (INO) | payer MEDICAID ==
--- NOTE | 2021-08-27 11:58 | EDM.PDOC ---
ED HPI GENERAL MEDICAL PROBLEM - General Chief Complaint: Chest Pain Stated Complaint: EMS/CHEST PAIN Time Seen by Provider: 08/27/21 11:45 Source of Information: Reports: Patient History Limitations: Reports: No Limitations - History of Present Illness INITIAL COMMENTS - FREE TEXT/NARRATIVE: Patient is a 56-year-old female history of diabetes high blood pressure hyperlipidemia previous strokes and MIs presents today for left-sided weakness left-sided weakness started 1 4 hours ago she also had a stroke this year making her out of window for TPA. Said she is able to move and has good strength but he says it feels numb sensation to the right side. She denies any other neurological planes no vision changes no speech changes. She also mentions some left-sided chest pain as well not made better or worse with anything feels can with short feeling. She denies any other associated symptoms or shortness of breath or cough. 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 chest Pain Score (Numeric/FACES): 9 - Related Data Allergies Allergy/AdvReac Type Severity Reaction Status Date / Time No Known Allergies Allergy Verified 08/27/21 11:49 Home Meds: Home Meds atorvaSTATin [Lipitor] 40 mg PO BEDTIME 90 Days #30 tab 04/18/18 [Rx] Glimepiride [Amaryl] 2 mg PO DAILY 07/22/18 [History] metFORMIN HCl [Metformin HCl] 500 mg PO BID 06/23/19 [History] Aspirin [Aspirin EC] 81 mg PO DAILY 11/08/20 [History] Fluticasone Propion/Salmeterol [Advair 250-50 Diskus] 1 inh IH BID 03/30/21 [History] Albuterol Sulfate [Proair Hfa] 1 - 2 inh IH Q4H PRN #1 inh 06/07/21 [Rx] Albuterol [Proventil Neb Soln] 2.5 mg NEB Q4HRRT PRN #50 cup 06/07/21 [Rx] Lisinopril/Hydrochlorothiazide [Lisinopril-HCTZ 10-12.5 MG] 10 - 12.5 mg PO DAILY #30 tab 06/07/21 [Rx] Montelukast [Singulair] 10 mg PO BEDTIME #30 06/07/21 [Rx] predniSONE [Prednisone] 40 mg PO DAILY 3 Days #6 tablet 09/19/21 [Rx] traMADol [Ultram] 50 mg PO Q6H PRN #7 tab 07/06/21 [Rx] predniSONE [Prednisone] 40 mg PO DAILY 5 Days #10 tablet 07/10/21 [Rx] Acetaminophen/oxyCODONE [Percocet 325-5 MG] 1 each PO Q6H PRN #18 tab 07/26/21 [Rx] Ibuprofen [Motrin] 600 mg PO Q6H PRN #20 tab 07/26/21 [Rx] predniSONE 40 mg PO DAILY 5 Days #10 tab 07/26/21 [Rx] Past Medical History - Past Health History Medical/Surgical History: Denies Medical/Surgical History HEENT History: Reports: Other (See Below) Other HEENT History: ear infection Cardiovascular History: Reports: CAD, High Cholesterol, Hypertension, [place] Respiratory History: Reports: Asthma, Sleep Apnea Gastrointestinal History: Reports: GERD Genitourinary History: Reports: None 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 Musculoskeletal History: Reports: Other (See Below) Other Musculoskeletal History: ankle fracture - 2013 Neurological History: Reports: TIA Psychiatric History: Reports: None Endocrine/Metabolic History: Reports: Diabetes, Type II Hematologic History: Reports: None Immunologic History: Reports: None Oncologic (Cancer) History: Reports: None Dermatologic History: Reports: None - Infectious Disease History Infectious Disease History: Reports: Chicken Pox, Measles, Mumps - Past Surgical History Head Surgeries/Procedures: Reports: None HEENT Surgical History: Reports: None Cardiovascular Surgical History: Reports: None Respiratory Surgical History: Reports: None GI Surgical History: Reports: None Female Surgical History: Reports: None Endocrine Surgical History: Reports: None Neurological Surgical History: Reports: None Musculoskeletal Surgical History: Reports: Other (See Below) Other Musculoskeletal Surgeries/Procedures:: broke Left ankle Dermatological Surgical History: Reports: None Social & Family History - Family History Family Medical History: No Pertinent Family History Cardiac: Reports: Hypertension, [place] Respiratory: Reports: Asthma OBGYN: Reports: Musculoskeletal: Reports: Arthritis Neurological: Reports: CVA Endocrine/Metabolic: Reports: Diabetes, type II - Tobacco Use Tobacco Use Status *Q: Current Every Day Tobacco User Years of Tobacco use: 6 Packs/Tins Daily: 0.3 - Caffeine Use Caffeine Use: Reports: None - Recreational Drug Use Recreational Drug Use: No ED ROS GENERAL - Review of Systems Review Of Systems: See Below Constitutional: Reports: No Symptoms HEENT: Reports: No Symptoms Respiratory: Reports: No Symptoms Cardiovascular: Reports: Chest Pain Endocrine: Reports: No Symptoms GI/Abdominal: Reports: No Symptoms : Reports: No Symptoms Musculoskeletal: Reports: No Symptoms Skin: Reports: No Symptoms Neurological: Reports: Numbness Psychiatric: Reports: No Symptoms Hematologic/Lymphatic: Reports: No Symptoms Immunologic: Reports: No Symptoms ED EXAM, NEURO - Physical Exam Exam: See Below Exam Limited By: No Limitations General Appearance: Alert, WD/WN, No Apparent Distress Eye Exam: Bilateral Eye: EOMI, PERRL Ears: Normal External Exam, Normal TMs Nose: Normal Inspection Head Exam: Atraumatic, Normocephalic Neck: Normal Inspection Respiratory/Chest: No Respiratory Distress, Lungs Clear, Normal Breath Sounds Cardiovascular: Normal Peripheral Pulses, Regular Rate, Rhythm GI/Abdominal: Normal Bowel Sounds, Soft, Non-Tender Neurological: Alert, Normal Mood/Affect, CN II-XII Intact, Normal Gait, Normal Reflexes, Oriented x 3 Extremities: Normal Inspection, Normal Range of Motion #1 Interpretation EKG Date: 08/27/21 Time: 11:36 Rhythm: NSR Rate (Beats/Min): 85 ST-T: Normal Course - Vital Signs Last Recorded V/S: Last Vital Signs Temp 98.9 F 08/27/21 13:52 Pulse 79 08/27/21 13:52 Resp 18 08/27/21 13:52 BP 160/105 H 08/27/21 13:52 Pulse Ox 97 08/27/21 13:52 - Orders/Labs/Meds Orders: Active Orders 24 hr Category Date Time Status Patient Status [ADT] Routine ADT 08/27/21 14:43 Ordered Labs: Laboratory Tests 08/27/21 08/27/21 08/27/21 Range/Units 12:35 12:45 12:45 WBC 7.45 (4.0-11.0) K/uL RBC 4.15 L (4.30-5.90) M/uL Hgb 11.5 L (12.0-16.0) g/dL Hct 35.5 L (36.0-46.0) % MCV 85.5 (80.0-98.0) fL MCH 27.7 (27.0-32.0) pg MCHC 32.4 (31.0-37.0) g/dL RDW Std Deviation 45.6 (28.0-62.0) fl RDW Coeff of Jeannette 15 (11.0-15.0) % Plt Count 242 (150-400) K/uL MPV 10.30 (7.40-12.00) fL Neut % (Auto) 67.1 (48.0-80.0) % Lymph % (Auto) 23.4 (16.0-40.0) % Gates % (Auto) 8.1 (0.0-15.0) % Eos % (Auto) 1.1 (0.0-7.0) % Baso % (Auto) 0.3 (0.0-1.5) % Neut # (Auto) 5.0 (1.4-5.7) K/uL Lymph # (Auto) 1.7 (0.6-2.4) K/uL Gates # (Auto) 0.6 (0.0-0.8) K/uL Eos # (Auto) 0.1 (0.0-0.7) K/uL Baso # (Auto) 0.0 (0.0-0.1) K/uL Nucleated RBC % 0.0 /100WBC Nucleated RBCs # 0 K/uL Sodium 143 (136-145) mmol/L Potassium 3.5 (3.5-5.1) mmol/L Chloride 106 (98-107) mmol/L Carbon Dioxide 23.6 (21.0-32.0) mmol/L BUN 19 H (7.0-18.0) mg/dL Creatinine 1.2 H (0.6-1.0) mg/dL Est Cr Clr Drug Dosing 49.69 mL/min Estimated GFR (MDRD) 55.9 ml/min Glucose 75 (74-106) mg/dL Calcium 9.1 (8.5-10.1) mg/dL Phosphorus 3.2 (2.6-4.7) mg/dL Magnesium 1.8 (1.8-2.4) mg/dL Total Bilirubin 0.7 (0.2-1.0) mg/dL AST 21 (15-37) IU/L ALT 21 (14-63) IU/L Alkaline Phosphatase 74 (46-116) U/L Creatine Kinase 81 (26-308) U/L Troponin I (0.000-0.056) ng/mL Total Protein 7.7 (6.4-8.2) g/dL Albumin 3.5 (3.4-5.0) g/dL Globulin 4.2 H (2.6-4.0) g/dL Albumin/Globulin Ratio 0.8 L (0.9-1.6) Lipase 45 L (73-393) U/L SARS-CoV-2 RNA ([place]) NEGATIVE (NEGATIVE) 08/27/21 Range/Units 12:45 WBC (4.0-11.0) K/uL RBC (4.30-5.90) M/uL Hgb (12.0-16.0) g/dL Hct (36.0-46.0) % MCV (80.0-98.0) fL MCH (27.0-32.0) pg MCHC (31.0-37.0) g/dL RDW Std Deviation (28.0-62.0) fl RDW Coeff of Jeannette (11.0-15.0) % Plt Count (150-400) K/uL MPV (7.40-12.00) fL Neut % (Auto) (48.0-80.0) % Lymph % (Auto) (16.0-40.0) % Gates % (Auto) (0.0-15.0) % Eos % (Auto) (0.0-7.0) % Baso % (Auto) (0.0-1.5) % Neut # (Auto) (1.4-5.7) K/uL Lymph # (Auto) (0.6-2.4) K/uL Gates # (Auto) (0.0-0.8) K/uL Eos # (Auto) (0.0-0.7) K/uL Baso # (Auto) (0.0-0.1) K/uL Nucleated RBC % /100WBC Nucleated RBCs # K/uL Sodium (136-145) mmol/L Potassium (3.5-5.1) mmol/L Chloride (98-107) mmol/L Carbon Dioxide (21.0-32.0) mmol/L BUN (7.0-18.0) mg/dL Creatinine (0.6-1.0) mg/dL Est Cr Clr Drug Dosing mL/min Estimated GFR (MDRD) ml/min Glucose (74-106) mg/dL Calcium (8.5-10.1) mg/dL Phosphorus (2.6-4.7) mg/dL Magnesium (1.8-2.4) mg/dL Total Bilirubin (0.2-1.0) mg/dL AST (15-37) IU/L ALT (14-63) IU/L Alkaline Phosphatase (46-116) U/L Creatine Kinase (26-308) U/L Troponin I < 0.050 (0.000-0.056) ng/mL Total Protein (6.4-8.2) g/dL Albumin (3.4-5.0) g/dL Globulin (2.6-4.0) g/dL Albumin/Globulin Ratio (0.9-1.6) Lipase (73-393) U/L SARS-CoV-2 RNA ([place]) (NEGATIVE) Meds: Medications Discontinued Medications Generic Name Dose Route Start Last Admin Trade Name Freq PRN Reason Stop Dose Admin Ketorolac Tromethamine 30 mg 08/27/21 14:37 Ketorolac 30 Mg/Ml Sdv IVPUSH 08/27/21 14:38 ONETIME ONE - Re-Assessments/Exams Free Text/Narrative Re-Assessment/Exam: 08/27/21 14:44 Patient still has left-sided numbness CT is negative tropes negative x1 we will continue to repeat tropes patient merit for further work-up. Departure - Departure Time of Disposition: 14:44 Disposition: Home, Self-Care 01 Condition: Good Clinical Impression: ACS (acute coronary syndrome) - Discharge Information Forms: ED Department Discharge Critical Care Note - Critical Care Note Total Time (mins): 45 Comments: Critical Care Procedure Note Authorized and Performed by: Dr. Garcia Total critical care time: Approximately Due to a high probability of clinically significant, life threatening deterioration, the patient required my highest level of preparedness to i ntervene emergently and I personally spent this critical care time directly and personally managing the patient. This critical care time included obtaining a history; examining the patient; pulse oximetry; ordering and review of studies; arranging urgent treatment with development of a management plan; evaluation of patient's response to treatment; frequent reassessment; and, discussions with other providers. This critical care time was performed to assess and manage the high probability of imminent, life-threatening deterioration that could result in multi-organ failure. It was exclusive of separately billable procedures and treating other patients and teaching time. Sepsis Event Note (ED) - Evaluation Sepsis Screening Result: No Definite Risk - Focused Exam Vital Signs: Vital Signs Temp Pulse Resp BP Pulse Ox 08/27/21 13:52 98.9 F 79 18 160/105 H 97 08/27/21 12:46 99.1 F 80 18 163/92 H 98 08/27/21 11:45 98.3 F 85 18 192/102 H 95 - My Orders Last 24 Hours: My Active Orders 08/27/21 14:43 Patient Status [ADT] Routine - Assessment/Plan Last 24 Hours: My Active Orders 08/27/21 14:43 Patient Status [ADT] Routine Plan: Patient is a 56-year-old female presents today for left-sided numbness. Patient only has numbness on exam she is out of the window for TPA not a candidate due to recent strokes. She also has some left-sided chest pain. Patient has elevated heart score as well will likely require admission for ACS rule out.
--- NOTE | 2021-08-27 12:47 | CR ---
INDICATION: Left-sided numbness. TECHNIQUE: Chest 1 view. COMPARISON: Chest radiograph 07/06/2021. FINDINGS: No focal consolidation, pleural effusion, or pneumothorax. Density in the medial right lung apex similar to prior exam. Stable mild cardiomegaly. Normal pulmonary vascularity. Hypertrophy of left anterior 1st rib. IMPRESSION: 1. No acute cardiopulmonary findings. 2. Stable mild cardiomegaly. 3. Stable density in the medial right lung apex which could be related to mediastinal structures but is indeterminate. This could be further evaluated with CT of the chest. Dictated by Myrna Muñoz MD @ 08/27/2021 12:45:47 PM (Electronically Signed)
--- NOTE | 2021-08-27 12:49 | CT ---
INDICATION: Left-sided weakness TECHNIQUE: CT head without contrast. COMPARISON: FINDINGS: CSF spaces: Within normal limits for age. Brain parenchyma: The rocha-white differentiation is normal. No sign of mass, hemorrhage, or midline shift. Skull base and calvarium: The visualized paranasal sinuses and mastoid air cells demonstrate no acute or significant findings. The visualized orbits are grossly unremarkable. No skull fractures. IMPRESSION: Unremarkable noncontrast head CT. Please note that all CT scans at this facility use dose modulation, iterative reconstruction, and/or weight-based dosing when appropriate to reduce radiation dose to as low as reasonably achievable. Dictated by Kaleb Way MD @ 08/27/2021 12:47:20 PM (Electronically Signed)
[2021-08-27 13:15] LABS: CARBON DIOXIDE,CO2 23.6 mmol/L (21.0-32.0); POTASSIUM,K 3.5 mmol/L (3.5-5.1)
[2021-08-27] MEDS ORDERED: Ketorolac 30 MG/ML SDV IVPUSH ONE (14:37)
[2021-08-27] MEDS ORDERED: Glucagon,Human Recombinant 1 MG Vial IM PRN (16:55)
[2021-08-27] MEDS ORDERED: 50% Dextrose in Water 50 ML Syringe IVPUSH PRN (16:55)
--- NOTE | 2021-08-27 16:56 | PCM.PN ---
- General Info Date of Service: 08/27/21 - Review of Systems Systems Review Comment:: 56 yo female with pmh of Asthma, HTN, and DM - Patient Data Vitals - Most Recent: Last Vital Signs Temp 36.4 C 08/27/21 15:15 Pulse 84 08/27/21 15:15 Resp 18 08/27/21 15:15 BP 149/76 H 08/27/21 15:15 Pulse Ox 98 08/27/21 15:15 Weight - Most Recent: 98.43 kg Lab Results Last 24 Hours: Laboratory Results - last 24 hr 08/27/21 08/27/21 08/27/21 Range/Units 12:35 12:45 12:45 WBC 7.45 (4.0-11.0) K/uL RBC 4.15 L (4.30-5.90) M/uL Hgb 11.5 L (12.0-16.0) g/dL Hct 35.5 L (36.0-46.0) % MCV 85.5 (80.0-98.0) fL MCH 27.7 (27.0-32.0) pg MCHC 32.4 (31.0-37.0) g/dL RDW Std Deviation 45.6 (28.0-62.0) fl RDW Coeff of Jeannette 15 (11.0-15.0) % Plt Count 242 (150-400) K/uL MPV 10.30 (7.40-12.00) fL Neut % (Auto) 67.1 (48.0-80.0) % Lymph % (Auto) 23.4 (16.0-40.0) % Weakley % (Auto) 8.1 (0.0-15.0) % Eos % (Auto) 1.1 (0.0-7.0) % Baso % (Auto) 0.3 (0.0-1.5) % Neut # (Auto) 5.0 (1.4-5.7) K/uL Lymph # (Auto) 1.7 (0.6-2.4) K/uL Weakley # (Auto) 0.6 (0.0-0.8) K/uL Eos # (Auto) 0.1 (0.0-0.7) K/uL Baso # (Auto) 0.0 (0.0-0.1) K/uL Nucleated RBC % 0.0 /100WBC Nucleated RBCs # 0 K/uL Sodium 143 (136-145) mmol/L Potassium 3.5 (3.5-5.1) mmol/L Chloride 106 (98-107) mmol/L Carbon Dioxide 23.6 (21.0-32.0) mmol/L BUN 19 H (7.0-18.0) mg/dL Creatinine 1.2 H (0.6-1.0) mg/dL Est Cr Clr Drug Dosing 49.69 mL/min Estimated GFR (MDRD) 55.9 ml/min Glucose 75 (74-106) mg/dL Calcium 9.1 (8.5-10.1) mg/dL Phosphorus 3.2 (2.6-4.7) mg/dL Magnesium 1.8 (1.8-2.4) mg/dL Total Bilirubin 0.7 (0.2-1.0) mg/dL AST 21 (15-37) IU/L ALT 21 (14-63) IU/L Alkaline Phosphatase 74 (46-116) U/L Creatine Kinase 81 (26-308) U/L Troponin I (0.000-0.056) ng/mL Total Protein 7.7 (6.4-8.2) g/dL Albumin 3.5 (3.4-5.0) g/dL Globulin 4.2 H (2.6-4.0) g/dL Albumin/Globulin Ratio 0.8 L (0.9-1.6) Lipase 45 L (73-393) U/L SARS-CoV-2 RNA ([place]) NEGATIVE (NEGATIVE) 08/27/21 Range/Units 12:45 WBC (4.0-11.0) K/uL RBC (4.30-5.90) M/uL Hgb (12.0-16.0) g/dL Hct (36.0-46.0) % MCV (80.0-98.0) fL MCH (27.0-32.0) pg MCHC (31.0-37.0) g/dL RDW Std Deviation (28.0-62.0) fl RDW Coeff of Jeannette (11.0-15.0) % Plt Count (150-400) K/uL MPV (7.40-12.00) fL Neut % (Auto) (48.0-80.0) % Lymph % (Auto) (16.0-40.0) % Weak[place] % (Auto) (0.0-15.0) % Eos % (Auto) (0.0-7.0) % Baso % (Auto) (0.0-1.5) % Neut # (Auto) (1.4-5.7) K/uL Lymph # (Auto) (0.6-2.4) K/uL Weakley # (Auto) (0.0-0.8) K/uL Eos # (Auto) (0.0-0.7) K/uL Baso # (Auto) (0.0-0.1) K/uL Nucleated RBC % /100WBC Nucleated RBCs # K/uL Sodium (136-145) mmol/L Potassium (3.5-5.1) mmol/L Chloride (98-107) mmol/L Carbon Dioxide (21.0-32.0) mmol/L BUN (7.0-18.0) mg/dL Creatinine (0.6-1.0) mg/dL Est Cr Clr Drug Dosing mL/min Estimated GFR (MDRD) ml/min Glucose (74-106) mg/dL Calcium (8.5-10.1) mg/dL Phosphorus (2.6-4.7) mg/dL Magnesium (1.8-2.4) mg/dL Total Bilirubin (0.2-1.0) mg/dL AST (15-37) IU/L ALT (14-63) IU/L Alkaline Phosphatase (46-116) U/L Creatine Kinase (26-308) U/L Troponin I < 0.050 (0.000-0.056) ng/mL Total Protein (6.4-8.2) g/dL Albumin (3.4-5.0) g/dL Globulin (2.6-4.0) g/dL Albumin/Globulin Ratio (0.9-1.6) Lipase (73-393) U/L SARS-CoV-2 RNA ([place]) (NEGATIVE) Med Orders - Current: Current Medications Acetaminophen (Acetaminophen 325 Mg Tab) 650 mg PO Q4H PRN PRN Reason: Pain (Mild 1-3)/fever Atorvastatin Calcium (Atorvastatin 40 Mg Tab) 40 mg PO BEDTIME MARCELO Lisinopril/HCTZ (Lisinopril/Hydrochlorothiazide 10-12.5 Mg Tab) tab PO DAILY MARCELO Methylprednisolone Sodium Succinate (Methylprednisolone Sodium Succinate 40 Mg/1 Ml Sdv) 40 mg IVPUSH DAILY MARCELO Montelukast Sodium (Montelukast 10 Mg Tab) 10 mg PO BEDTIME MARCELO Non-Formulary Medication (Albuterol) 2.5 mg NEB Q6HRRT MARCELO Fluticasone/Salmeterol (Fluticasone/Salmeterol 250-50 Mcg Inhalation Powder 14/Diskus) 1 puff INH BID MARCELO Tramadol HCl (Tramadol 50 Mg Tab) 50 mg PO Q6H PRN PRN Reason: Pain Discontinued Medications Ketorolac Tromethamine (Ketorolac 30 Mg/Ml Sdv) 30 mg IVPUSH ONETIME ONE Stop: 08/27/21 14:38 Last Admin: 08/27/21 14:55 Dose: 30 mg Documented by: - Patient Data Lab Results Last 24 hrs: Laboratory Results - last 24 hr 08/27/21 08/27/21 08/27/21 Range/Units 12:35 12:45 12:45 WBC 7.45 (4.0-11.0) K/uL RBC 4.15 L (4.30-5.90) M/uL Hgb 11.5 L (12.0-16.0) g/dL Hct 35.5 L (36.0-46.0) % MCV 85.5 (80.0-98.0) fL MCH 27.7 (27.0-32.0) pg MCHC 32.4 (31.0-37.0) g/dL RDW Std Deviation 45.6 (28.0-62.0) fl RDW Coeff of Jeannette 15 (11.0-15.0) % Plt Count 242 (150-400) K/uL MPV 10.30 (7.40-12.00) fL Neut % (Auto) 67.1 (48.0-80.0) % Lymph % (Auto) 23.4 (16.0-40.0) % Weakley % (Auto) 8.1 (0.0-15.0) % Eos % (Auto) 1.1 (0.0-7.0) % Baso % (Auto) 0.3 (0.0-1.5) % Neut # (Auto) 5.0 (1.4-5.7) K/uL Lymph # (Auto) 1.7 (0.6-2.4) K/uL Weak[place] # (Auto) 0.6 (0.0-0.8) K/uL Eos # (Auto) 0.1 (0.0-0.7) K/uL Baso # (Auto) 0.0 (0.0-0.1) K/uL Nucleated RBC % 0.0 /100WBC Nucleated RBCs # 0 K/uL Sodium 143 (136-145) mmol/L Potassium 3.5 (3.5-5.1) mmol/L Chloride 106 (98-107) mmol/L Carbon Dioxide 23.6 (21.0-32.0) mmol/L BUN 19 H (7.0-18.0) mg/dL Creatinine 1.2 H (0.6-1.0) mg/dL Est Cr Clr Drug Dosing 49.69 mL/min Estimated GFR (MDRD) 55.9 ml/min Glucose 75 (74-106) mg/dL Calcium 9.1 (8.5-10.1) mg/dL Phosphorus 3.2 (2.6-4.7) mg/dL Magnesium 1.8 (1.8-2.4) mg/dL Total Bilirubin 0.7 (0.2-1.0) mg/dL AST 21 (15-37) IU/L ALT 21 (14-63) IU/L Alkaline Phosphatase 74 (46-116) U/L Creatine Kinase 81 (26-308) U/L Troponin I (0.000-0.056) ng/mL Total Protein 7.7 (6.4-8.2) g/dL Albumin 3.5 (3.4-5.0) g/dL Globulin 4.2 H (2.6-4.0) g/dL Albumin/Globulin Ratio 0.8 L (0.9-1.6) Lipase 45 L (73-393) U/L SARS-CoV-2 RNA ([place]) NEGATIVE (NEGATIVE) 08/27/21 Range/Units 12:45 WBC (4.0-11.0) K/uL RBC (4.30-5.90) M/uL Hgb (12.0-16.0) g/dL Hct (36.0-46.0) % MCV (80.0-98.0) fL MCH (27.0-32.0) pg MCHC (31.0-37.0) g/dL RDW Std Deviation (28.0-62.0) fl RDW Coeff of Jeannette (11.0-15.0) % Plt Count (150-400) K/uL MPV (7.40-12.00) fL Neut % (Auto) (48.0-80.0) % Lymph % (Auto) (16.0-40.0) % Weakley % (Auto) (0.0-15.0) % Eos % (Auto) (0.0-7.0) % Baso % (Auto) (0.0-1.5) % Neut # (Auto) (1.4-5.7) K/uL Lymph # (Auto) (0.6-2.4) K/uL Weak[place] # (Auto) (0.0-0.8) K/uL Eos # (Auto) (0.0-0.7) K/uL Baso # (Auto) (0.0-0.1) K/uL Nucleated RBC % /100WBC Nucleated RBCs # K/uL Sodium (136-145) mmol/L Potassium (3.5-5.1) mmol/L Chloride (98-107) mmol/L Carbon Dioxide (21.0-32.0) mmol/L BUN (7.0-18.0) mg/dL Creatinine (0.6-1.0) mg/dL Est Cr Clr Drug Dosing mL/min Estimated GFR (MDRD) ml/min Glucose (74-106) mg/dL Calcium (8.5-10.1) mg/dL Phosphorus (2.6-4.7) mg/dL Magnesium (1.8-2.4) mg/dL Total Bilirubin (0.2-1.0) mg/dL AST (15-37) IU/L ALT (14-63) IU/L Alkaline Phosphatase (46-116) U/L Creatine Kinase (26-308) U/L Troponin I < 0.050 (0.000-0.056) ng/mL Total Protein (6.4-8.2) g/dL Albumin (3.4-5.0) g/dL Globulin (2.6-4.0) g/dL Albumin/Globulin Ratio (0.9-1.6) Lipase (73-393) U/L SARS-CoV-2 RNA ([place]) (NEGATIVE) Result Diagrams: 08/27/21 12:45 08/27/21 12:45 Sepsis Event Note - Evaluation Sepsis Screening Result: No Definite Risk - Focused Exam Vital Signs: Vital Signs Temp Pulse Resp BP Pulse Ox 08/27/21 15:15 36.4 C 84 18 149/76 H 98 08/27/21 13:52 37.2 C 79 18 160/105 H 97 08/27/21 12:46 37.3 C 80 18 163/92 H 98 08/27/21 11:45 36.8 C 85 18 192/102 H 95 - My Orders Last 24 Hours: My Active Orders 08/27/21 Breakfast [employer] Diet [DIET] 08/27/21 16:51 RT Post Treatment Assessment [RC] Click to Edit RT Pre-Treatment Assessment [RC] Click to Edit traMADol [Ultram] 50 mg PO Q6H PRN 08/27/21 16:54 Antiembolic Devices [RC] PER UNIT ROUTINE Oxygen Therapy [RC] PRN Up ad Emperatriz [RC] ASDIRECTED VTE/DVT Education [RC] PER UNIT ROUTINE Vital Signs [RC] Q4H Acetaminophen [TylenoL] 650 mg PO Q4H PRN Sequential Compression Device [OM.PC] Per Unit Routine Resuscitation Status Routine 08/27/21 16:55 Blood Glucose Check, Bedside [RC] TIDMEALS Dextrose 50% in Water 50 ml IVPUSH ASDIRECTED PRN Glucagon,Human Recombinant [GlucaGen] 1 mg IM ASDIRECTED PRN 08/27/21 17:00 Insulin Aspart [NovoLOG] See Protocol SUBCUT TIDAC methylPREDNISolone Sod Succ [Solu-MEDROL] 40 mg IVPUSH DAILY 08/27/21 18:00 Albuterol 2.5 mg NEB Q6HRRT 08/27/21 19:00 TROPONIN I [CHEM] Q6H 08/27/21 21:00 Fluticasone/Salmeterol [Advair Diskus 250-50] 1 puff INH BID Montelukast [Singulair] 10 mg PO BEDTIME atorvaSTATin [Lipitor] 40 mg PO BEDTIME 08/28/21 01:00 TROPONIN I [CHEM] Q6H 08/28/21 05:11 BASIC METABOLIC PANEL,BMP [CHEM] AM CBC WITH AUTO DIFF [HEME] AM 08/28/21 09:00 Lisinopril/Hydrochlorothiazide [Lisinopril-HCTZ 10-12.5 MG] 10 - 12.5 mg PO DAILY
--- NOTE | 2021-08-27 17:01 | PCM.HP.2 ---
H&P History of Present Illness - General Date of Service: 08/27/21 Admit Problem/Dx: Admission Diagnosis/Problem Admission Diagnosis/Problem Coronary artery disease - History of Present Illness Initial Comments - Free Text/Narative: 56 yo female with pmh of Asthma, HTN, and DM, ETOH abuse, AYLA who presents with complaints of chest tightness, shortness of breath and left arm numbness. Patient has had multiple admission for asthma exacerbation with similar presentations. Patient reports her chest pain and symptoms are similar to her prior admissions. She denies any fevers, productive cough, or lightheadedness. chest Pain Score (Numeric/FACES): 9 - Related Data Allergies/Adverse Reactions: Allergies Allergy/AdvReac Type Severity Reaction Status Date / Time No Known Allergies Allergy Verified 08/27/21 18:21 Home Medications: Home Meds atorvaSTATin [Lipitor] 40 mg PO BEDTIME 90 Days #30 tab 04/18/18 [Rx] Glimepiride [Amaryl] 2 mg PO DAILY 07/22/18 [History] Aspirin [Aspirin EC] 81 mg PO DAILY 11/08/20 [History] Fluticasone Propion/Salmeterol [Advair 250-50 Diskus] 1 inh IH BID 03/30/21 [His tory] Albuterol [Proventil Neb Soln] 2.5 mg NEB Q4HRRT PRN #50 cup 06/07/21 [Rx] Montelukast [Singulair] 10 mg PO BEDTIME #30 06/07/21 [Rx] traMADol [Ultram] 50 mg PO Q6H PRN #7 tab 07/06/21 [Rx] predniSONE [Prednisone] 40 mg PO DAILY 5 Days #10 tablet 07/10/21 [Rx] Acetaminophen/oxyCODONE [Percocet 325-5 MG] 1 each PO Q6H PRN #18 tab 07/26/21 [Rx] Ibuprofen [Motrin] 600 mg PO Q6H PRN #20 tab 07/26/21 [Rx] Albuterol Sulfate [Proair Hfa] 2 inh IH Q4HRRT PRN 08/27/21 [History] Hydrochlorothiazide/Lisinopril [Lisinopril-HCTZ 10-12.5 MG] 1 tab PO DAILY 08/27/21 [History] metFORMIN HCl [Metformin HCl] 500 mg PO BID 08/27/21 [History] Past Medical History - Past Health History Medical/Surgical History: Denies Medical/Surgical History HEENT History: Reports: Other (See Below) Other HEENT History: ear infection Cardiovascular History: Reports: CAD, High Cholesterol, Hypertension, ID Respiratory History: Reports: Asthma, Sleep Apnea Gastrointestinal History: Reports: GERD Genitourinary History: Reports: None 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 OB/BYN History: 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 Musculoskeletal History: Reports: Other (See Below) Other Musculoskeletal History: ankle fracture - 2013 Neurological History: Reports: TIA Psychiatric History: Reports: None Endocrine/Metabolic History: Reports: Diabetes, Type II Hematologic History: Reports: None Immunologic History: Reports: None Oncologic (Cancer) History: Reports: None Dermatologic History: Reports: None - Infectious Disease History Infectious Disease History: Reports: Chicken Pox, Measles, Mumps - Past Surgical History Head Surgeries/Procedures: Reports: None HEENT Surgical History: Reports: None Cardiovascular Surgical History: Reports: None Respiratory Surgical History: Reports: None GI Surgical History: Reports: None Female Surgical History: Reports: None Endocrine Surgical History: Reports: None Neurological Surgical History: Reports: None Musculoskeletal Surgical History: Reports: Other (See Below) Other Musculoskeletal Surgeries/Procedures:: broke Left ankle Dermatological Surgical History: Reports: None Social & Family History - Family History Family Medical History: No Pertinent Family History Cardiac: Reports: Hypertension, ID Respiratory: Reports: Asthma OBGYN: Reports: Musculoskeletal: Reports: Arthritis Neurological: Reports: CVA Endocrine/Metabolic: Reports: Diabetes, type II - Tobacco Use Tobacco Use Status *Q: Current Every Day Tobacco User Years of Tobacco use: 6 Packs/Tins Daily: 0.3 - Caffeine Use Caffeine Use: Reports: None - Recreational Drug Use Recreational Drug Use: No H&P Review of Systems - Review of Systems: Review Of Systems: Comprehensive ROS is negative, except as noted in HPI. Exam - Exam Exam: See Below - Vital Signs Vital Signs: Last Vital Signs Temp 36.4 C 08/27/21 15:15 Pulse 84 08/27/21 15:15 Resp 18 08/27/21 15:15 BP 149/76 H 08/27/21 15:15 Pulse Ox 98 08/27/21 15:15 Weight: 98.43 kg - Exam General: Alert, Oriented HEENT: Mucosa Moist & [place] Lungs: Normal Respiratory Effort, Wheezing Cardiovascular: Regular Rate, Regular Rhythm GI/Abdominal Exam: Soft, Non-Tender Extremities: Non-Tender, No Pedal Edema Skin: Warm, Dry, Intact - Patient Data Lab Results Last 24 hrs: Laboratory Results - last 24 hr 08/27/21 08/27/21 08/27/21 Range/Units 12:35 12:45 12:45 WBC 7.45 (4.0-11.0) K/uL RBC 4.15 L (4.30-5.90) M/uL Hgb 11.5 L (12.0-16.0) g/dL Hct 35.5 L (36.0-46.0) % MCV 85.5 (80.0-98.0) fL MCH 27.7 (27.0-32.0) pg MCHC 32.4 (31.0-37.0) g/dL RDW Std Deviation 45.6 (28.0-62.0) fl RDW Coeff of Jeannette 15 (11.0-15.0) % Plt Count 242 (150-400) K/uL MPV 10.30 (7.40-12.00) fL Neut % (Auto) 67.1 (48.0-80.0) % Lymph % (Auto) 23.4 (16.0-40.0) % [place] % (Auto) 8.1 (0.0-15.0) % Eos % (Auto) 1.1 (0.0-7.0) % Baso % (Auto) 0.3 (0.0-1.5) % Neut # (Auto) 5.0 (1.4-5.7) K/uL Lymph # (Auto) 1.7 (0.6-2.4) K/uL [place] # (Auto) 0.6 (0.0-0.8) K/uL Eos # (Auto) 0.1 (0.0-0.7) K/uL Baso # (Auto) 0.0 (0.0-0.1) K/uL Nucleated RBC % 0.0 /100WBC Nucleated RBCs # 0 K/uL Sodium 143 (136-145) mmol/L Potassium 3.5 (3.5-5.1) mmol/L Chloride 106 (98-107) mmol/L Carbon Dioxide 23.6 (21.0-32.0) mmol/L BUN 19 H (7.0-18.0) mg/dL Creatinine 1.2 H (0.6-1.0) mg/dL Est Cr Clr Drug Dosing 49.69 mL/min Estimated GFR (MDRD) 55.9 ml/min Glucose 75 (74-106) mg/dL Calcium 9.1 (8.5-10.1) mg/dL Phosphorus 3.2 (2.6-4.7) mg/dL Magnesium 1.8 (1.8-2.4) mg/dL Total Bilirubin 0.7 (0.2-1.0) mg/dL AST 21 (15-37) IU/L ALT 21 (14-63) IU/L Alkaline Phosphatase 74 (46-116) U/L Creatine Kinase 81 (26-308) U/L Troponin I (0.000-0.056) ng/mL Total Protein 7.7 (6.4-8.2) g/dL Albumin 3.5 (3.4-5.0) g/dL Globulin 4.2 H (2.6-4.0) g/dL Albumin/Globulin Ratio 0.8 L (0.9-1.6) Lipase 45 L (73-393) U/L SARS-CoV-2 RNA ([place]) NEGATIVE (NEGATIVE) 08/27/21 Range/Units 12:45 WBC (4.0-11.0) K/uL RBC (4.30-5.90) M/uL Hgb (12.0-16.0) g/dL Hct (36.0-46.0) % MCV (80.0-98.0) fL MCH (27.0-32.0) pg MCHC (31.0-37.0) g/dL RDW Std Deviation (28.0-62.0) fl RDW Coeff of Jeannette (11.0-15.0) % Plt Count (150-400) K/uL MPV (7.40-12.00) fL Neut % (Auto) (48.0-80.0) % Lymph % (Auto) (16.0-40.0) % [place] % (Auto) (0.0-15.0) % Eos % (Auto) (0.0-7.0) % Baso % (Auto) (0.0-1.5) % Neut # (Auto) (1.4-5.7) K/uL Lymph # (Auto) (0.6-2.4) K/uL [place] # (Auto) (0.0-0.8) K/uL Eos # (Auto) (0.0-0.7) K/uL Baso # (Auto) (0.0-0.1) K/uL Nucleated RBC % /100WBC Nucleated RBCs # K/uL Sodium (136-145) mmol/L Potassium (3.5-5.1) mmol/L Chloride (98-107) mmol/L Carbon Dioxide (21.0-32.0) mmol/L BUN (7.0-18.0) mg/dL Creatinine (0.6-1.0) mg/dL Est Cr Clr Drug Dosing mL/min Estimated GFR (MDRD) ml/min Glucose (74-106) mg/dL Calcium (8.5-10.1) mg/dL Phosphorus (2.6-4.7) mg/dL Magnesium (1.8-2.4) mg/dL Total Bilirubin (0.2-1.0) mg/dL AST (15-37) IU/L ALT (14-63) IU/L Alkaline Phosphatase (46-116) U/L Creatine Kinase (26-308) U/L Troponin I < 0.050 (0.000-0.056) ng/mL Total Protein (6.4-8.2) g/dL Albumin (3.4-5.0) g/dL Globulin (2.6-4.0) g/dL Albumin/Globulin Ratio (0.9-1.6) Lipase (73-393) U/L SARS-CoV-2 RNA ([place]) (NEGATIVE) Result Diagrams: 08/28/21 04:59 08/28/21 04:59 Sepsis Event Note - Evaluation Sepsis Screening Result: No Definite Risk - Focused Exam Vital Signs: Vital Signs Temp Pulse Resp BP Pulse Ox 08/27/21 15:15 36.4 C 84 18 149/76 H 98 08/27/21 13:52 37.2 C 79 18 160/105 H 97 08/27/21 12:46 37.3 C 80 18 163/92 H 98 08/27/21 11:45 36.8 C 85 18 192/102 H 95 Problem List Initiated/Reviewed/Updated: Yes Orders Last 24hrs: Active Orders 24 hr Category Date Time Status Patient Status [ADT] Routine ADT 08/27/21 14:43 Active Antiembolic Devices [RC] PER UNIT ROUTINE Care 08/27/21 16:54 Active Blood Glucose Check, Bedside [RC] TIDMEALS Care 08/27/21 16:55 Active Oxygen Therapy [RC] PRN Care 08/27/21 16:54 Active RT Post Treatment Assessment [RC] Click to Edit Care 08/27/21 16:51 Active RT Pre-Treatment Assessment [RC] Click to Edit Care 08/27/21 16:51 Active Up ad Emperatriz [RC] ASDIRECTED Care 08/27/21 16:54 Active VTE/DVT Education [RC] PER UNIT ROUTINE Care 08/27/21 16:54 Active Vital Signs [RC] Q4H Care 08/27/21 16:54 Active [employer] Diet [DIET] Diet 08/27/21 Breakfast Active BASIC METABOLIC PANEL,BMP [CHEM] AM Lab 08/28/21 05:11 Ordered CBC WITH AUTO DIFF [HEME] AM Lab 08/28/21 05:11 Ordered TROPONIN I [CHEM] Q6H Lab 08/27/21 19:00 Ordered TROPONIN I [CHEM] Q6H Lab 08/28/21 01:00 Ordered Acetaminophen [TylenoL] Med 08/27/21 16:54 Active 650 mg PO Q4H PRN Albuterol Med 08/27/21 18:00 Active 2.5 mg NEB Q6HRRT Dextrose 50% in Water Med 08/27/21 16:55 Active 50 ml IVPUSH ASDIRECTED PRN Fluticasone/Salmeterol [Advair Diskus 250-50] Med 08/27/21 21:00 Active 1 puff INH BID Glucagon,Human Recombinant [GlucaGen] Med 08/27/21 16:55 Active 1 mg IM ASDIRECTED PRN Insulin Aspart [NovoLOG] Med 08/27/21 17:00 Active See Protocol SUBCUT TIDAC Lisinopril/Hydrochlorothiazide [Lisinopril-HCTZ 10-12.5 Med 08/28/21 09:00 Ordered MG] DOSE tab PO DAILY Montelukast [Singulair] Med 08/27/21 21:00 Active 10 mg PO BEDTIME atorvaSTATin [Lipitor] Med 08/27/21 21:00 Active 40 mg PO BEDTIME methylPREDNISolone Sod Succ [Solu-MEDROL] Med 08/27/21 17:00 Active 40 mg IVPUSH DAILY traMADol [Ultram] Med 08/27/21 16:51 Active 50 mg PO Q6H PRN Sequential Compression Device [OM.PC] Per Unit Routine Oth 08/27/21 16:54 Ordered Resuscitation Status Routine Resus Stat 08/27/21 16:54 Ordered Medication Orders Acetaminophen (Acetaminophen 325 Mg Tab) 650 mg PO Q4H PRN PRN Reason: Pain (Mild 1-3)/fever Atorvastatin Calcium (Atorvastatin 40 Mg Tab) 40 mg PO BEDTIME MARCELO Dextrose/Water (50% Dextrose In Water 50 Ml Syringe) 50 ml IVPUSH ASDIRECTED PRN PRN Reason: Hypoglycemia Glucagon (Glucagon,Human Recombinant 1 Mg Vial) 1 mg IM ASDIRECTED PRN PRN Reason: Hypoglycemia Lisinopril/HCTZ (Lisinopril/Hydrochlorothiazide 10-12.5 Mg Tab) tab PO DAILY MARCELO Insulin Aspart (Insulin Aspart 100 Units/Ml 3 Ml Pen) 0 unit SUBCUT TIDAC MARCELO; Protocol Methylprednisolone Sodium Succinate (Methylprednisolone Sodium Succinate 40 Mg/1 Ml Sdv) 40 mg IVPUSH DAILY MARCELO Montelukast Sodium (Montelukast 10 Mg Tab) 10 mg PO BEDTIME MARCELO Non-Formulary Medication (Albuterol) 2.5 mg NEB Q6HRRT MARCELO Fluticasone/Salmeterol (Fluticasone/Salmeterol 250-50 Mcg Inhalation Powder 14/Diskus) 1 puff INH BID MARCELO Tramadol HCl (Tramadol 50 Mg Tab) 50 mg PO Q6H PRN PRN Reason: Pain Assessment/Plan Comment:: 56 yo female admitted for chest pain and asthma exacerbation Chest pain: will trend cardiac enzymes Asthma exacerbation: will treat with solumedrol and duonebs HTN: resume home medications.
[2021-08-27] MEDS: Insulin Aspart 100 Units/ML 3 ML Pen SUBCUT SCH (17:27)
[2021-08-27] MEDS: methylPREDNISolone Sodium Succinate 40 MG/1 ML SDV IVPUSH SCH (17:28)
[2021-08-27] MEDS: traMADol 50 MG Tab PO PRN ×2 (17:35→23:17)
[2021-08-27] MEDS: Albuterol 0.083% 2.5 MG/3 ML Neb Soln INH SCH ×2 (18:27→23:18)
[2021-08-27] MEDS: Acetaminophen 325 MG Tab PO PRN (18:35)
[2021-08-27] MEDS: Fluticasone/Salmeterol 250-50 MCG Inhalation Powder 14/Diskus INH SCH (21:25)
[2021-08-27] MEDS: atorvaSTATin 40 MG Tab PO SCH (21:26)
[2021-08-27] MEDS: Montelukast 10 MG Tab PO SCH (21:26)
[2021-08-28 06:43] LABS: CARBON DIOXIDE,CO2 23.4 mmol/L (21.0-32.0); POTASSIUM,K 3.8 mmol/L (3.5-5.1)
[2021-08-28] MEDS: Albuterol 0.083% 2.5 MG/3 ML Neb Soln INH SCH ×3 (06:53→17:47)
[2021-08-28] MEDS: Acetaminophen 325 MG Tab PO PRN ×2 (07:11→14:14)
[2021-08-28] MEDS ORDERED: Labetalol 100 MG/20 ML MDV IVPUSH ONE ×2 (08:03→14:02)
[2021-08-28] MEDS: Insulin Aspart 100 Units/ML 3 ML Pen SUBCUT SCH ×3 (08:14→17:32)
[2021-08-28] MEDS: Lisinopril/Hydrochlorothiazide 10-12.5 MG Tab PO SCH (08:16)
[2021-08-28] MEDS: methylPREDNISolone Sodium Succinate 40 MG/1 ML SDV IVPUSH SCH (08:17)
[2021-08-28] MEDS: Fluticasone/Salmeterol 250-50 MCG Inhalation Powder 14/Diskus INH SCH ×2 (08:36→20:55)
[2021-08-28] MEDS: traMADol 50 MG Tab PO PRN ×2 (08:52→20:47)
[2021-08-28] MEDS: amLODIPine 5 MG Tab PO SCH (11:02)
--- NOTE | 2021-08-28 11:09 | PCM.PN ---
- General Info Date of Service: 08/28/21 - Review of Systems Systems Review Comment:: reports wheezing, chest tightness - Patient Data Vitals - Most Recent: Last Vital Signs Temp 35.9 C L 08/28/21 08:00 Pulse 64 08/28/21 09:30 Resp 20 08/28/21 08:00 BP 182/99 H 08/28/21 11:02 Pulse Ox 93 L 08/28/21 08:00 Weight - Most Recent: 104.417 kg I&O - Last 24 Hours: Intake & Output 08/27/21 08/28/21 08/28/21 22:59 06:59 14:59 Intake Total 2000 Output Total 600 Balance 1400 Lab Results Last 24 Hours: Laboratory Results - last 24 hr 08/27/21 08/27/21 08/27/21 Range/Units 12:35 12:45 12:45 WBC 7.45 (4.0-11.0) K/uL RBC 4.15 L (4.30-5.90) M/uL Hgb 11.5 L (12.0-16.0) g/dL Hct 35.5 L (36.0-46.0) % MCV 85.5 (80.0-98.0) fL MCH 27.7 (27.0-32.0) pg MCHC 32.4 (31.0-37.0) g/dL RDW Std Deviation 45.6 (28.0-62.0) fl RDW Coeff of Jeannette 15 (11.0-15.0) % Plt Count 242 (150-400) K/uL MPV 10.30 (7.40-12.00) fL Neut % (Auto) 67.1 (48.0-80.0) % Lymph % (Auto) 23.4 (16.0-40.0) % [place] % (Auto) 8.1 (0.0-15.0) % Eos % (Auto) 1.1 (0.0-7.0) % Baso % (Auto) 0.3 (0.0-1.5) % Neut # (Auto) 5.0 (1.4-5.7) K/uL Lymph # (Auto) 1.7 (0.6-2.4) K/uL Marin # (Auto) 0.6 (0.0-0.8) K/uL Eos # (Auto) 0.1 (0.0-0.7) K/uL Baso # (Auto) 0.0 (0.0-0.1) K/uL Nucleated RBC % 0.0 /100WBC Nucleated RBCs # 0 K/uL Sodium 143 (136-145) mmol/L Potassium 3.5 (3.5-5.1) mmol/L Chloride 106 (98-107) mmol/L Carbon Dioxide 23.6 (21.0-32.0) mmol/L BUN 19 H (7.0-18.0) mg/dL Creatinine 1.2 H (0.6-1.0) mg/dL Est Cr Clr Drug Dosing 49.69 mL/min Estimated GFR (MDRD) 55.9 ml/min Glucose 75 (74-106) mg/dL POC Glucose (70-99) mg/dL Calcium 9.1 (8.5-10.1) mg/dL Phosphorus 3.2 (2.6-4.7) mg/dL Magnesium 1.8 (1.8-2.4) mg/dL Total Bilirubin 0.7 (0.2-1.0) mg/dL AST 21 (15-37) IU/L ALT 21 (14-63) IU/L Alkaline Phosphatase 74 (46-116) U/L Creatine Kinase 81 (26-308) U/L Troponin I (0.000-0.056) ng/mL Total Protein 7.7 (6.4-8.2) g/dL Albumin 3.5 (3.4-5.0) g/dL Globulin 4.2 H (2.6-4.0) g/dL Albumin/Globulin Ratio 0.8 L (0.9-1.6) Lipase 45 L (73-393) U/L SARS-CoV-2 RNA ([place]) NEGATIVE (NEGATIVE) 08/27/21 08/27/21 08/27/21 Range/Units 12:45 17:23 19:00 WBC (4.0-11.0) K/uL RBC (4.30-5.90) M/uL Hgb (12.0-16.0) g/dL Hct (36.0-46.0) % MCV (80.0-98.0) fL MCH (27.0-32.0) pg MCHC (31.0-37.0) g/dL RDW Std Deviation (28.0-62.0) fl RDW Coeff of Jeannette (11.0-15.0) % Plt Count (150-400) K/uL MPV (7.40-12.00) fL Neut % (Auto) (48.0-80.0) % Lymph % (Auto) (16.0-40.0) % Marin % (Auto) (0.0-15.0) % Eos % (Auto) (0.0-7.0) % Baso % (Auto) (0.0-1.5) % Neut # (Auto) (1.4-5.7) K/uL Lymph # (Auto) (0.6-2.4) K/uL Marin # (Auto) (0.0-0.8) K/uL Eos # (Auto) (0.0-0.7) K/uL Baso # (Auto) (0.0-0.1) K/uL Nucleated RBC % /100WBC Nucleated RBCs # K/uL Sodium (136-145) mmol/L Potassium (3.5-5.1) mmol/L Chloride (98-107) mmol/L Carbon Dioxide (21.0-32.0) mmol/L BUN (7.0-18.0) mg/dL Creatinine (0.6-1.0) mg/dL Est Cr Clr Drug Dosing mL/min Estimated GFR (MDRD) ml/min Glucose (74-106) mg/dL POC Glucose 104 H (70-99) mg/dL Calcium (8.5-10.1) mg/dL Phosphorus (2.6-4.7) mg/dL Magnesium (1.8-2.4) mg/dL Total Bilirubin (0.2-1.0) mg/dL AST (15-37) IU/L ALT (14-63) IU/L Alkaline Phosphatase (46-116) U/L Creatine Kinase (26-308) U/L Troponin I < 0.050 < 0.050 (0.000-0.056) ng/mL Total Protein (6.4-8.2) g/dL Albumin (3.4-5.0) g/dL Globulin (2.6-4.0) g/dL Albumin/Globulin Ratio (0.9-1.6) Lipase (73-393) U/L SARS-CoV-2 RNA ([place]) (NEGATIVE) 08/28/21 08/28/21 08/28/21 Range/Units 01:10 04:59 04:59 WBC 5.93 (4.0-11.0) K/uL RBC 4.00 L (4.30-5.90) M/uL Hgb 11.0 L (12.0-16.0) g/dL Hct 33.9 L (36.0-46.0) % MCV 84.8 (80.0-98.0) fL MCH 27.5 (27.0-32.0) pg MCHC 32.4 (31.0-37.0) g/dL RDW Std Deviation 45.2 (28.0-62.0) fl RDW Coeff of Jeannette 15 (11.0-15.0) % Plt Count 245 (150-400) K/uL MPV 10.90 (7.40-12.00) fL Neut % (Auto) 87.7 H (48.0-80.0) % Lymph % (Auto) 10.1 L (16.0-40.0) % Marin % (Auto) 2.2 (0.0-15.0) % Eos % (Auto) 0.0 (0.0-7.0) % Baso % (Auto) 0.0 (0.0-1.5) % Neut # (Auto) 5.2 (1.4-5.7) K/uL Lymph # (Auto) 0.6 (0.6-2.4) K/uL Marin # (Auto) 0.1 (0.0-0.8) K/uL Eos # (Auto) 0.0 (0.0-0.7) K/uL Baso # (Auto) 0.0 (0.0-0.1) K/uL Nucleated RBC % 0.0 /100WBC Nucleated RBCs # 0 K/uL Sodium 136 (136-145) mmol/L Potassium 3.8 (3.5-5.1) mmol/L Chloride 100 (98-107) mmol/L Carbon Dioxide 23.4 (21.0-32.0) mmol/L BUN 22 H (7.0-18.0) mg/dL Creatinine 1.5 H (0.6-1.0) mg/dL Est Cr Clr Drug Dosing 39.75 mL/min Estimated GFR (MDRD) 43.2 ml/min Glucose 363 H (74-106) mg/dL POC Glucose (70-99) mg/dL Calcium 8.8 (8.5-10.1) mg/dL Phosphorus (2.6-4.7) mg/dL Magnesium (1.8-2.4) mg/dL Total Bilirubin (0.2-1.0) mg/dL AST (15-37) IU/L ALT (14-63) IU/L Alkaline Phosphatase (46-116) U/L Creatine Kinase (26-308) U/L Troponin I < 0.050 (0.000-0.056) ng/mL Total Protein (6.4-8.2) g/dL Albumin (3.4-5.0) g/dL Globulin (2.6-4.0) g/dL Albumin/Globulin Ratio (0.9-1.6) Lipase (73-393) U/L SARS-CoV-2 RNA ([place]) (NEGATIVE) 08/28/21 08/28/21 Range/Units 06:42 10:58 WBC (4.0-11.0) K/uL RBC (4.30-5.90) M/uL Hgb (12.0-16.0) g/dL Hct (36.0-46.0) % MCV (80.0-98.0) fL MCH (27.0-32.0) pg MCHC (31.0-37.0) g/dL RDW Std Deviation (28.0-62.0) fl RDW Coeff of Jeannette (11.0-15.0) % Plt Count (150-400) K/uL MPV (7.40-12.00) fL Neut % (Auto) (48.0-80.0) % Lymph % (Auto) (16.0-40.0) % Marin % (Auto) (0.0-15.0) % Eos % (Auto) (0.0-7.0) % Baso % (Auto) (0.0-1.5) % Neut # (Auto) (1.4-5.7) K/uL Lymph # (Auto) (0.6-2.4) K/uL Marin # (Auto) (0.0-0.8) K/uL Eos # (Auto) (0.0-0.7) K/uL Baso # (Auto) (0.0-0.1) K/uL Nucleated RBC % /100WBC Nucleated RBCs # K/uL Sodium (136-145) mmol/L Potassium (3.5-5.1) mmol/L Chloride (98-107) mmol/L Carbon Dioxide (21.0-32.0) mmol/L BUN (7.0-18.0) mg/dL Creatinine (0.6-1.0) mg/dL Est Cr Clr Drug Dosing mL/min Estimated GFR (MDRD) ml/min Glucose (74-106) mg/dL POC Glucose 245 H 188 H (70-99) mg/dL Calcium (8.5-10.1) mg/dL Phosphorus (2.6-4.7) mg/dL Magnesium (1.8-2.4) mg/dL Total Bilirubin (0.2-1.0) mg/dL AST (15-37) IU/L ALT (14-63) IU/L Alkaline Phosphatase (46-116) U/L Creatine Kinase (26-308) U/L Troponin I (0.000-0.056) ng/mL Total Protein (6.4-8.2) g/dL Albumin (3.4-5.0) g/dL Globulin (2.6-4.0) g/dL Albumin/Globulin Ratio (0.9-1.6) Lipase (73-393) U/L SARS-CoV-2 RNA ([place]) (NEGATIVE) Med Orders - Current: Current Medications Acetaminophen (Acetaminophen 325 Mg Tab) 650 mg PO Q4H PRN PRN Reason: Pain (Mild 1-3)/fever Last Admin: 08/28/21 07:11 Dose: 650 mg Documented by: Albuterol (Albuterol 0.083% 2.5 Mg/3 Ml Neb Soln) 2.5 mg INH Q6HRRT MARCELO Last Admin: 08/28/21 06:53 Dose: 2.5 mg Documented by: Amlodipine Besylate (Amlodipine 5 Mg Tab) 5 mg PO DAILY [facility] Last Admin: 08/28/21 11:02 Dose: 5 mg Documented by: Atorvastatin Calcium (Atorvastatin 40 Mg Tab) 40 mg PO BEDTIME [facility] Last Admin: 08/27/21 21:26 Dose: 40 mg Documented by: Dextrose/Water (50% Dextrose In Water 50 Ml Syringe) 50 ml IVPUSH ASDIRECTED PRN PRN Reason: Hypoglycemia Glucagon (Glucagon,Human Recombinant 1 Mg Vial) 1 mg IM ASDIRECTED PRN PRN Reason: Hypoglycemia Lisinopril/HCTZ (Lisinopril/Hydrochlorothiazide 10-12.5 Mg Tab) 1 tab PO DAILY [facility] Last Admin: 08/28/21 08:16 Dose: 1 tab Documented by: Insulin Aspart (Insulin Aspart 100 Units/Ml 3 Ml Pen) 0 unit SUBCUT TIDAC [facility]; Protocol Last Admin: 08/28/21 08:14 Dose: 2 units Documented by: Methylprednisolone Sodium Succinate (Methylprednisolone Sodium Succinate 40 Mg/1 Ml Sdv) 40 mg IVPUSH DAILY [facility] Last Admin: 08/28/21 08:17 Dose: 40 mg Documented by: Montelukast Sodium (Montelukast 10 Mg Tab) 10 mg PO BEDTIME [facility] Last Admin: 08/27/21 21:26 Dose: 10 mg Documented by: Fluticasone/Salmeterol (Fluticasone/Salmeterol 250-50 Mcg Inhalation Powder 14/Diskus) 1 puff INH BID [facility] Last Admin: 08/28/21 08:36 Dose: 1 puff Documented by: Tramadol HCl (Tramadol 50 Mg Tab) 50 mg PO Q6H PRN PRN Reason: Pain Last Admin: 08/28/21 08:52 Dose: 50 mg Documented by: Discontinued Medications Ketorolac Tromethamine (Ketorolac 30 Mg/Ml Sdv) 30 mg IVPUSH ONETIME ONE Stop: 08/27/21 14:38 Last Admin: 08/27/21 14:55 Dose: 30 mg Documented by: Labetalol HCl (Labetalol 100 Mg/20 Ml Mdv) 20 mg IVPUSH ONETIME ONE; Protocol Stop: 08/28/21 08:04 Last Admin: 08/28/21 08:38 Dose: 20 mg Documented by: - Exam General: Alert, Oriented Neck: Supple Lungs: Normal Respiratory Effort, Wheezing Cardiovascular: Regular Rate, Regular Rhythm GI/Abdominal Exam: Soft, Non-Tender Extremities: Non-Tender, No Pedal Edema Skin: Warm, Dry, Intact Neurological: No New Focal Deficit - Patient Data Lab Results Last 24 hrs: Laboratory Results - last 24 hr 08/27/21 08/27/21 08/27/21 Range/Units 12:35 12:45 12:45 WBC 7.45 (4.0-11.0) K/uL RBC 4.15 L (4.30-5.90) M/uL Hgb 11.5 L (12.0-16.0) g/dL Hct 35.5 L (36.0-46.0) % MCV 85.5 (80.0-98.0) fL MCH 27.7 (27.0-32.0) pg MCHC 32.4 (31.0-37.0) g/dL RDW Std Deviation 45.6 (28.0-62.0) fl RDW Coeff of Jeannette 15 (11.0-15.0) % Plt Count 242 (150-400) K/uL MPV 10.30 (7.40-12.00) fL Neut % (Auto) 67.1 (48.0-80.0) % Lymph % (Auto) 23.4 (16.0-40.0) % Marin % (Auto) 8.1 (0.0-15.0) % Eos % (Auto) 1.1 (0.0-7.0) % Baso % (Auto) 0.3 (0.0-1.5) % Neut # (Auto) 5.0 (1.4-5.7) K/uL Lymph # (Auto) 1.7 (0.6-2.4) K/uL Marin # (Auto) 0.6 (0.0-0.8) K/uL Eos # (Auto) 0.1 (0.0-0.7) K/uL Baso # (Auto) 0.0 (0.0-0.1) K/uL Nucleated RBC % 0.0 /100WBC Nucleated RBCs # 0 K/uL Sodium 143 (136-145) mmol/L Potassium 3.5 (3.5-5.1) mmol/L Chloride 106 (98-107) mmol/L Carbon Dioxide 23.6 (21.0-32.0) mmol/L BUN 19 H (7.0-18.0) mg/dL Creatinine 1.2 H (0.6-1.0) mg/dL Est Cr Clr Drug Dosing 49.69 mL/min Estimated GFR (MDRD) 55.9 ml/min Glucose 75 (74-106) mg/dL POC Glucose (70-99) mg/dL Calcium 9.1 (8.5-10.1) mg/dL Phosphorus 3.2 (2.6-4.7) mg/dL Magnesium 1.8 (1.8-2.4) mg/dL Total Bilirubin 0.7 (0.2-1.0) mg/dL AST 21 (15-37) IU/L ALT 21 (14-63) IU/L Alkaline Phosphatase 74 (46-116) U/L Creatine Kinase 81 (26-308) U/L Troponin I (0.000-0.056) ng/mL Total Protein 7.7 (6.4-8.2) g/dL Albumin 3.5 (3.4-5.0) g/dL Globulin 4.2 H (2.6-4.0) g/dL Albumin/Globulin Ratio 0.8 L (0.9-1.6) Lipase 45 L (73-393) U/L SARS-CoV-2 RNA ([place]) NEGATIVE (NEGATIVE) 08/27/21 08/27/21 08/27/21 Range/Units 12:45 17:23 19:00 WBC (4.0-11.0) K/uL RBC (4.30-5.90) M/uL Hgb (12.0-16.0) g/dL Hct (36.0-46.0) % MCV (80.0-98.0) fL MCH (27.0-32.0) pg MCHC (31.0-37.0) g/dL RDW Std Deviation (28.0-62.0) fl RDW Coeff of Jeannette (11.0-15.0) % Plt Count (150-400) K/uL MPV (7.40-12.00) fL Neut % (Auto) (48.0-80.0) % Lymph % (Auto) (16.0-40.0) % Marin % (Auto) (0.0-15.0) % Eos % (Auto) (0.0-7.0) % Baso % (Auto) (0.0-1.5) % Neut # (Auto) (1.4-5.7) K/uL Lymph # (Auto) (0.6-2.4) K/uL Marin # (Auto) (0.0-0.8) K/uL Eos # (Auto) (0.0-0.7) K/uL Baso # (Auto) (0.0-0.1) K/uL Nucleated RBC % /100WBC Nucleated RBCs # K/uL Sodium (136-145) mmol/L Potassium (3.5-5.1) mmol/L Chloride (98-107) mmol/L Carbon Dioxide (21.0-32.0) mmol/L BUN (7.0-18.0) mg/dL Creatinine (0.6-1.0) mg/dL Est Cr Clr Drug Dosing mL/min Estimated GFR (MDRD) ml/min Glucose (74-106) mg/dL POC Glucose 104 H (70-99) mg/dL Calcium (8.5-10.1) mg/dL Phosphorus (2.6-4.7) mg/dL Magnesium (1.8-2.4) mg/dL Total Bilirubin (0.2-1.0) mg/dL AST (15-37) IU/L ALT (14-63) IU/L Alkaline Phosphatase (46-116) U/L Creatine Kinase (26-308) U/L Troponin I < 0.050 < 0.050 (0.000-0.056) ng/mL Total Protein (6.4-8.2) g/dL Albumin (3.4-5.0) g/dL Globulin (2.6-4.0) g/dL Albumin/Globulin Ratio (0.9-1.6) Lipase (73-393) U/L SARS-CoV-2 RNA ([place]) (NEGATIVE) 08/28/21 08/28/21 08/28/21 Range/Units 01:10 04:59 04:59 WBC 5.93 (4.0-11.0) K/uL RBC 4.00 L (4.30-5.90) M/uL Hgb 11.0 L (12.0-16.0) g/dL Hct 33.9 L (36.0-46.0) % MCV 84.8 (80.0-98.0) fL MCH 27.5 (27.0-32.0) pg MCHC 32.4 (31.0-37.0) g/dL RDW Std Deviation 45.2 (28.0-62.0) fl RDW Coeff of Jeannette 15 (11.0-15.0) % Plt Count 245 (150-400) K/uL MPV 10.90 (7.40-12.00) fL Neut % (Auto) 87.7 H (48.0-80.0) % Lymph % (Auto) 10.1 L (16.0-40.0) % [place] % (Auto) 2.2 (0.0-15.0) % Eos % (Auto) 0.0 (0.0-7.0) % Baso % (Auto) 0.0 (0.0-1.5) % Neut # (Auto) 5.2 (1.4-5.7) K/uL Lymph # (Auto) 0.6 (0.6-2.4) K/uL [place] # (Auto) 0.1 (0.0-0.8) K/uL Eos # (Auto) 0.0 (0.0-0.7) K/uL Baso # (Auto) 0.0 (0.0-0.1) K/uL Nucleated RBC % 0.0 /100WBC Nucleated RBCs # 0 K/uL Sodium 136 (136-145) mmol/L Potassium 3.8 (3.5-5.1) mmol/L Chloride 100 (98-107) mmol/L Carbon Dioxide 23.4 (21.0-32.0) mmol/L BUN 22 H (7.0-18.0) mg/dL Creatinine 1.5 H (0.6-1.0) mg/dL Est Cr Clr Drug Dosing 39.75 mL/min Estimated GFR (MDRD) 43.2 ml/min Glucose 363 H (74-106) mg/dL POC Glucose (70-99) mg/dL Calcium 8.8 (8.5-10.1) mg/dL Phosphorus (2.6-4.7) mg/dL Magnesium (1.8-2.4) mg/dL Total Bilirubin (0.2-1.0) mg/dL AST (15-37) IU/L ALT (14-63) IU/L Alkaline Phosphatase (46-116) U/L Creatine Kinase (26-308) U/L Troponin I < 0.050 (0.000-0.056) ng/mL Total Protein (6.4-8.2) g/dL Albumin (3.4-5.0) g/dL Globulin (2.6-4.0) g/dL Albumin/Globulin Ratio (0.9-1.6) Lipase (73-393) U/L SARS-CoV-2 RNA ([place]) (NEGATIVE) 08/28/21 08/28/21 Range/Units 06:42 10:58 WBC (4.0-11.0) K/uL RBC (4.30-5.90) M/uL Hgb (12.0-16.0) g/dL Hct (36.0-46.0) % MCV (80.0-98.0) fL MCH (27.0-32.0) pg MCHC (31.0-37.0) g/dL RDW Std Deviation (28.0-62.0) fl RDW Coeff of Jeannette (11.0-15.0) % Plt Count (150-400) K/uL MPV (7.40-12.00) fL Neut % (Auto) (48.0-80.0) % Lymph % (Auto) (16.0-40.0) % Marin % (Auto) (0.0-15.0) % Eos % (Auto) (0.0-7.0) % Baso % (Auto) (0.0-1.5) % Neut # (Auto) (1.4-5.7) K/uL Lymph # (Auto) (0.6-2.4) K/uL [place] # (Auto) (0.0-0.8) K/uL Eos # (Auto) (0.0-0.7) K/uL Baso # (Auto) (0.0-0.1) K/uL Nucleated RBC % /100WBC Nucleated RBCs # K/uL Sodium (136-145) mmol/L Potassium (3.5-5.1) mmol/L Chloride (98-107) mmol/L Carbon Dioxide (21.0-32.0) mmol/L BUN (7.0-18.0) mg/dL Creatinine (0.6-1.0) mg/dL Est Cr Clr Drug Dosing mL/min Estimated GFR (MDRD) ml/min Glucose (74-106) mg/dL POC Glucose 245 H 188 H (70-99) mg/dL Calcium (8.5-10.1) mg/dL Phosphorus (2.6-4.7) mg/dL Magnesium (1.8-2.4) mg/dL Total Bilirubin (0.2-1.0) mg/dL AST (15-37) IU/L ALT (14-63) IU/L Alkaline Phosphatase (46-116) U/L Creatine Kinase (26-308) U/L Troponin I (0.000-0.056) ng/mL Total Protein (6.4-8.2) g/dL Albumin (3.4-5.0) g/dL Globulin (2.6-4.0) g/dL Albumin/Globulin Ratio (0.9-1.6) Lipase (73-393) U/L SARS-CoV-2 RNA ([place]) (NEGATIVE) Result Diagrams: 08/28/21 04:59 08/28/21 04:59 Sepsis Event Note - Evaluation Sepsis Screening Result: No Definite Risk - Focused Exam Vital Signs: Vital Signs Temp Pulse Resp BP BP Pulse Ox 08/28/21 11:02 182/99 H 08/28/21 09:30 64 168/76 H 08/28/21 08:00 35.9 C L 69 20 196/95 H 93 L 08/28/21 03:50 36.5 C 75 20 186/89 H 98 08/27/21 23:20 36.3 C 76 16 183/93 H 96 - Problem List & Annotations (1) Asthma SNOMED Code(s): 472561525 Code(s): J45.909 - UNSPECIFIED ASTHMA, UNCOMPLICATED Status: Acute Current Visit: No Qualifiers: Asthma severity: unspecified severity Asthma persistence: unspecified Asthma complication type: unspecified Qualified Code(s): J45.909 - Unspecified asthma, uncomplicated (2) Chest pain, rule out acute myocardial infarction SNOMED Code(s): 70685257 Code(s): R07.9 - CHEST PAIN, UNSPECIFIED Status: Acute Current Visit: No - Problem List Review Problem List Initiated/Reviewed/Updated: Yes - My Orders Last 24 Hours: My Active Orders 08/27/21 16:51 RT Post Treatment Assessment [RC] Click to Edit RT Pre-Treatment Assessment [RC] Click to Edit traMADol [Ultram] 50 mg PO Q6H PRN 08/27/21 16:54 Antiembolic Devices [RC] PER UNIT ROUTINE Oxygen Therapy [RC] PRN Up ad Emperatriz [RC] ASDIRECTED VTE/DVT Education [RC] PER UNIT ROUTINE Vital Signs [RC] Q4H Acetaminophen [TylenoL] 650 mg PO Q4H PRN Sequential Compression Device [OM.PC] Per Unit Routine Resuscitation Status Routine 08/27/21 16:55 Blood Glucose Check, Bedside [RC] TIDMEALS Dextrose 50% in Water 50 ml IVPUSH ASDIRECTED PRN Glucagon,Human Recombinant [GlucaGen] 1 mg IM ASDIRECTED PRN 08/27/21 17:00 Insulin Aspart [NovoLOG] See Protocol SUBCUT TIDAC methylPREDNISolone Sod Succ [Solu-MEDROL] 40 mg IVPUSH DAILY 08/27/21 18:00 Albuterol [Proventil Neb Soln] 2.5 mg INH Q6HRRT 08/27/21 21:00 Fluticasone/Salmeterol [Advair Diskus 250-50] 1 puff INH BID Montelukast [Singulair] 10 mg PO BEDTIME atorvaSTATin [Lipitor] 40 mg PO BEDTIME 08/28/21 09:00 Lisinopril/Hydrochlorothiazide [Lisinopril-HCTZ 10-12.5 MG] 1 tab PO DAILY 08/28/21 10:45 amLODIPine [Norvasc] 5 mg PO DAILY - Plan Plan:: 56 yo female admitted for chest pain and asthma exacerbation Chest pain: ruled out for ACS with serial cardiac enzymes Asthma exacerbation: will continue solumedrol and duonebs DM: diabetic diet, ssi HTN: resume lisinopril/HCTZ, will add amlodipine
[2021-08-28 11:35] LABS: HEMOGLOBIN A1C 6.6 %
[2021-08-28] MEDS ORDERED: Morphine 2 MG/ML SYRINGE IVPUSH ONE (16:00)
[2021-08-28] MEDS ORDERED: hydrALAZINE 20 MG/ML SDV IVPUSH ONE (17:08)
[2021-08-28] MEDS: cloNIDine 0.1 MG Tab PO SCH (20:49)
[2021-08-28] MEDS: Montelukast 10 MG Tab PO SCH (20:49)
[2021-08-28] MEDS: atorvaSTATin 40 MG Tab PO SCH (20:50)
[2021-08-28] MEDS ORDERED: cloNIDine 0.1 MG Tab PO SCH (21:00)
[2021-08-29] MEDS: Albuterol 0.083% 2.5 MG/3 ML Neb Soln INH SCH ×4 (00:52→17:19)
[2021-08-29] MEDS: traMADol 50 MG Tab PO PRN ×2 (02:59→17:58)
[2021-08-29 06:53] LABS: CARBON DIOXIDE,CO2 28.1 mmol/L (21.0-32.0); POTASSIUM,K 3.8 mmol/L (3.5-5.1)
[2021-08-29] MEDS: Insulin Aspart 100 Units/ML 3 ML Pen SUBCUT SCH ×3 (08:09→17:29)
[2021-08-29] MEDS: cloNIDine 0.1 MG Tab PO SCH ×2 (09:18→21:33)
[2021-08-29] MEDS: Lisinopril/Hydrochlorothiazide 10-12.5 MG Tab PO SCH (09:18)
[2021-08-29] MEDS: amLODIPine 5 MG Tab PO SCH (09:19)
[2021-08-29] MEDS: methylPREDNISolone Sodium Succinate 40 MG/1 ML SDV IVPUSH SCH (09:19)
[2021-08-29] MEDS: Acetaminophen 325 MG Tab PO PRN (09:27)
[2021-08-29] MEDS: Fluticasone/Salmeterol 250-50 MCG Inhalation Powder 14/Diskus INH SCH ×2 (09:28→21:34)
--- NOTE | 2021-08-29 12:42 | PCM.PN ---
- General Info Date of Service: 08/29/21 - Review of Systems Systems Review Comment:: feeling better, but still reports wheezing and chest tightness - Patient Data Vitals - Most Recent: Last Vital Signs Temp 36.3 C 08/29/21 12:00 Pulse 61 08/29/21 12:00 Resp 18 08/29/21 12:00 BP 145/95 H 08/29/21 12:00 Pulse Ox 97 08/29/21 12:00 Weight - Most Recent: 104.417 kg I&O - Last 24 Hours: Intake & Output 08/28/21 08/29/21 08/29/21 22:59 06:59 14:59 Intake Total 1000 300 Output Total 800 Balance 200 300 Lab Results Last 24 Hours: Laboratory Results - last 24 hr 08/28/21 08/29/21 08/29/21 Range/Units 17:29 05:22 05:22 WBC 8.78 (4.0-11.0) K/uL RBC 3.86 L (4.30-5.90) M/uL Hgb 10.7 L (12.0-16.0) g/dL Hct 33.0 L (36.0-46.0) % MCV 85.5 (80.0-98.0) fL MCH 27.7 (27.0-32.0) pg MCHC 32.4 (31.0-37.0) g/dL RDW Std Deviation 45.6 (28.0-62.0) fl RDW Coeff of Jeannette 15 (11.0-15.0) % Plt Count 232 (150-400) K/uL MPV 10.90 (7.40-12.00) fL Neut % (Auto) 67.6 (48.0-80.0) % Lymph % (Auto) 21.2 (16.0-40.0) % [place] % (Auto) 10.9 (0.0-15.0) % Eos % (Auto) 0.2 (0.0-7.0) % Baso % (Auto) 0.1 (0.0-1.5) % Neut # (Auto) 5.9 H (1.4-5.7) K/uL Lymph # (Auto) 1.9 (0.6-2.4) K/uL [place] # (Auto) 1.0 H (0.0-0.8) K/uL Eos # (Auto) 0.0 (0.0-0.7) K/uL Baso # (Auto) 0.0 (0.0-0.1) K/uL Nucleated RBC % 0.0 /100WBC Nucleated RBCs # 0 K/uL Sodium 138 (136-145) mmol/L Potassium 3.8 (3.5-5.1) mmol/L Chloride 102 (98-107) mmol/L Carbon Dioxide 28.1 (21.0-32.0) mmol/L BUN 22 H (7.0-18.0) mg/dL Creatinine 1.2 H (0.6-1.0) mg/dL Est Cr Clr Drug Dosing 49.69 mL/min Estimated GFR (MDRD) 55.9 ml/min Glucose 166 H (74-106) mg/dL POC Glucose 260 H (70-99) mg/dL Calcium 9.2 (8.5-10.1) mg/dL 08/29/21 08/29/21 Range/Units 05:30 11:58 WBC (4.0-11.0) K/uL RBC (4.30-5.90) M/uL Hgb (12.0-16.0) g/dL Hct (36.0-46.0) % MCV (80.0-98.0) fL MCH (27.0-32.0) pg MCHC (31.0-37.0) g/dL RDW Std Deviation (28.0-62.0) fl RDW Coeff of Jeannette (11.0-15.0) % Plt Count (150-400) K/uL MPV (7.40-12.00) fL Neut % (Auto) (48.0-80.0) % Lymph % (Auto) (16.0-40.0) % [place] % (Auto) (0.0-15.0) % Eos % (Auto) (0.0-7.0) % Baso % (Auto) (0.0-1.5) % Neut # (Auto) (1.4-5.7) K/uL Lymph # (Auto) (0.6-2.4) K/uL [place] # (Auto) (0.0-0.8) K/uL Eos # (Auto) (0.0-0.7) K/uL Baso # (Auto) (0.0-0.1) K/uL Nucleated RBC % /100WBC Nucleated RBCs # K/uL Sodium (136-145) mmol/L Potassium (3.5-5.1) mmol/L Chloride (98-107) mmol/L Carbon Dioxide (21.0-32.0) mmol/L BUN (7.0-18.0) mg/dL Creatinine (0.6-1.0) mg/dL Est Cr Clr Drug Dosing mL/min Estimated GFR (MDRD) ml/min Glucose (74-106) mg/dL POC Glucose 156 H 263 H (70-99) mg/dL Calcium (8.5-10.1) mg/dL Med Orders - Current: Current Medications Acetaminophen (Acetaminophen 325 Mg Tab) 650 mg PO Q4H PRN PRN Reason: Pain (Mild 1-3)/fever Last Admin: 08/29/21 09:27 Dose: 650 mg Documented by: Albuterol (Albuterol 0.083% 2.5 Mg/3 Ml Neb Soln) 2.5 mg INH Q6HRRT [facility] Last Admin: 08/29/21 06:12 Dose: 2.5 mg Documented by: Amlodipine Besylate (Amlodipine 5 Mg Tab) 5 mg PO DAILY [facility] Last Admin: 08/29/21 09:19 Dose: 5 mg Documented by: Atorvastatin Calcium (Atorvastatin 40 Mg Tab) 40 mg PO BEDTIME [facility] Last Admin: 08/28/21 20:50 Dose: 40 mg Documented by: Clonidine HCl (Clonidine 0.1 Mg Tab) 0.1 mg PO Q12HR [facility] Last Admin: 08/29/21 09:18 Dose: 0.1 mg Documented by: Dextrose/Water (50% Dextrose In Water 50 Ml Syringe) 50 ml IVPUSH ASDIRECTED PRN PRN Reason: Hypoglycemia Glucagon (Glucagon,Human Recombinant 1 Mg Vial) 1 mg IM ASDIRECTED PRN PRN Reason: Hypoglycemia Lisinopril/HCTZ (Lisinopril/Hydrochlorothiazide 10-12.5 Mg Tab) 1 tab PO DAILY [facility] Last Admin: 08/29/21 09:18 Dose: 1 tab Documented by: Insulin Aspart (Insulin Aspart 100 Units/Ml 3 Ml Pen) 0 unit SUBCUT TIDAC [facility]; Protocol Last Admin: 08/29/21 12:03 Dose: 3 units Documented by: Methylprednisolone Sodium Succinate (Methylprednisolone Sodium Succinate 40 Mg/1 Ml Sdv) 40 mg IVPUSH DAILY [facility] Last Admin: 08/29/21 09:19 Dose: 40 mg Documented by: Montelukast Sodium (Montelukast 10 Mg Tab) 10 mg PO BEDTIME [facility] Last Admin: 08/28/21 20:49 Dose: 10 mg Documented by: Fluticasone/Salmeterol (Fluticasone/Salmeterol 250-50 Mcg Inhalation Powder 14/Diskus) 1 puff INH BID [facility] Last Admin: 08/29/21 09:28 Dose: 1 puff Documented by: Tramadol HCl (Tramadol 50 Mg Tab) 50 mg PO Q6H PRN PRN Reason: Pain Last Admin: 08/29/21 02:59 Dose: 50 mg Documented by: Discontinued Medications Clonidine HCl (Clonidine 0.1 Mg Tab) 0.1 mg PO Q12HR [facility] Hydralazine HCl (Hydralazine 20 Mg/Ml Sdv) 10 mg IVPUSH ONETIME ONE Stop: 08/28/21 17:09 Last Admin: 08/28/21 17:47 Dose: 10 mg Documented by: Ketorolac Tromethamine (Ketorolac 30 Mg/Ml Sdv) 30 mg IVPUSH ONETIME ONE Stop: 08/27/21 14:38 Last Admin: 08/27/21 14:55 Dose: 30 mg Documented by: Labetalol HCl (Labetalol 100 Mg/20 Ml Mdv) 20 mg IVPUSH ONETIME ONE; Protocol Stop: 08/28/21 08:04 Last Admin: 08/28/21 08:38 Dose: 20 mg Documented by: Labetalol HCl (Labetalol 100 Mg/20 Ml Mdv) 20 mg IVPUSH ONETIME ONE; Protocol Stop: 08/28/21 14:03 Last Admin: 08/28/21 14:13 Dose: 20 mg Documented by: Morphine Sulfate (Morphine 2 Mg/Ml Syringe) 2 mg IVPUSH ONETIME ONE Stop: 08/28/21 16:01 Last Admin: 08/28/21 16:09 Dose: 2 mg Documented by: - Exam General: Alert, Oriented Lungs: Normal Respiratory Effort, Wheezing Cardiovascular: Regular Rate, Regular Rhythm GI/Abdominal Exam: Soft, Non-Tender, No Distention Extremities: Non-Tender, No Pedal Edema Skin: Warm, Dry, Intact Neurological: No New Focal Deficit - Patient Data Lab Results Last 24 hrs: Laboratory Results - last 24 hr 08/28/21 08/29/21 08/29/21 Range/Units 17:29 05:22 05:22 WBC 8.78 (4.0-11.0) K/uL RBC 3.86 L (4.30-5.90) M/uL Hgb 10.7 L (12.0-16.0) g/dL Hct 33.0 L (36.0-46.0) % MCV 85.5 (80.0-98.0) fL MCH 27.7 (27.0-32.0) pg MCHC 32.4 (31.0-37.0) g/dL RDW Std Deviation 45.6 (28.0-62.0) fl RDW Coeff of Jeannette 15 (11.0-15.0) % Plt Count 232 (150-400) K/uL MPV 10.90 (7.40-12.00) fL Neut % (Auto) 67.6 (48.0-80.0) % Lymph % (Auto) 21.2 (16.0-40.0) % [place] % (Auto) 10.9 (0.0-15.0) % Eos % (Auto) 0.2 (0.0-7.0) % Baso % (Auto) 0.1 (0.0-1.5) % Neut # (Auto) 5.9 H (1.4-5.7) K/uL Lymph # (Auto) 1.9 (0.6-2.4) K/uL [place] # (Auto) 1.0 H (0.0-0.8) K/uL Eos # (Auto) 0.0 (0.0-0.7) K/uL Baso # (Auto) 0.0 (0.0-0.1) K/uL Nucleated RBC % 0.0 /100WBC Nucleated RBCs # 0 K/uL Sodium 138 (136-145) mmol/L Potassium 3.8 (3.5-5.1) mmol/L Chloride 102 (98-107) mmol/L Carbon Dioxide 28.1 (21.0-32.0) mmol/L BUN 22 H (7.0-18.0) mg/dL Creatinine 1.2 H (0.6-1.0) mg/dL Est Cr Clr Drug Dosing 49.69 mL/min Estimated GFR (MDRD) 55.9 ml/min Glucose 166 H (74-106) mg/dL POC Glucose 260 H (70-99) mg/dL Calcium 9.2 (8.5-10.1) mg/dL 08/29/21 08/29/21 Range/Units 05:30 11:58 WBC (4.0-11.0) K/uL RBC (4.30-5.90) M/uL Hgb (12.0-16.0) g/dL Hct (36.0-46.0) % MCV (80.0-98.0) fL MCH (27.0-32.0) pg MCHC (31.0-37.0) g/dL RDW Std Deviation (28.0-62.0) fl RDW Coeff of Jeannette (11.0-15.0) % Plt Count (150-400) K/uL MPV (7.40-12.00) fL Neut % (Auto) (48.0-80.0) % Lymph % (Auto) (16.0-40.0) % [place] % (Auto) (0.0-15.0) % Eos % (Auto) (0.0-7.0) % Baso % (Auto) (0.0-1.5) % Neut # (Auto) (1.4-5.7) K/uL Lymph # (Auto) (0.6-2.4) K/uL [place] # (Auto) (0.0-0.8) K/uL Eos # (Auto) (0.0-0.7) K/uL Baso # (Auto) (0.0-0.1) K/uL Nucleated RBC % /100WBC Nucleated RBCs # K/uL Sodium (136-145) mmol/L Potassium (3.5-5.1) mmol/L Chloride (98-107) mmol/L Carbon Dioxide (21.0-32.0) mmol/L BUN (7.0-18.0) mg/dL Creatinine (0.6-1.0) mg/dL Est Cr Clr Drug Dosing mL/min Estimated GFR (MDRD) ml/min Glucose (74-106) mg/dL POC Glucose 156 H 263 H (70-99) mg/dL Calcium (8.5-10.1) mg/dL Result Diagrams: 08/29/21 05:22 08/29/21 05:22 Sepsis Event Note - Evaluation Sepsis Screening Result: No Definite Risk - Focused Exam Vital Signs: Vital Signs Temp Temp Pulse Resp BP BP Pulse Ox 08/29/21 12:00 36.3 C 61 18 145/95 H 97 08/29/21 09:27 36.6 C 08/29/21 09:19 154/58 H 08/29/21 09:18 154/58 H 08/29/21 08:00 36.6 C 69 18 154/58 H 98 08/29/21 04:00 36.6 C 61 18 165/80 H 98 - Problem List & Annotations (1) Asthma SNOMED Code(s): 742876832 Code(s): J45.909 - UNSPECIFIED ASTHMA, UNCOMPLICATED Status: Acute Current Visit: No Qualifiers: Asthma severity: unspecified severity Asthma persistence: unspecified Asthma complication type: unspecified Qualified Code(s): J45.909 - Unspecified asthma, uncomplicated (2) Chest pain, rule out acute myocardial infarction SNOMED Code(s): 48376771 Code(s): R07.9 - CHEST PAIN, UNSPECIFIED Status: Acute Current Visit: No - Problem List Review Problem List Initiated/Reviewed/Updated: Yes - My Orders Last 24 Hours: My Active Orders 08/28/21 21:00 cloNIDine [Catapres] 0.1 mg PO Q12HR - Plan Plan:: 56 yo female admitted for chest pain and asthma exacerbation Chest pain: ruled out for ACS with serial cardiac enzymes Asthma exacerbation: will continue solumedrol and duonebs DM: diabetic diet, ssi HTN: on lisinopril/HCTZ, have added amlodipine and clonidine dispo: likely home tomorrow.
[2021-08-29] MEDS: atorvaSTATin 40 MG Tab PO SCH (21:33)
[2021-08-29] MEDS: Montelukast 10 MG Tab PO SCH (21:34)
[2021-08-30] MEDS: Albuterol 0.083% 2.5 MG/3 ML Neb Soln INH SCH ×3 (00:09→11:50)
[2021-08-30] MEDS: traMADol 50 MG Tab PO PRN (06:07)
[2021-08-30] MEDS: Fluticasone/Salmeterol 250-50 MCG Inhalation Powder 14/Diskus INH SCH (08:11)
[2021-08-30] MEDS: Insulin Aspart 100 Units/ML 3 ML Pen SUBCUT SCH ×2 (08:19→11:22)
[2021-08-30] MEDS: Lisinopril/Hydrochlorothiazide 10-12.5 MG Tab PO SCH (08:20)
[2021-08-30] MEDS: amLODIPine 5 MG Tab PO SCH (08:20)
[2021-08-30] MEDS: methylPREDNISolone Sodium Succinate 40 MG/1 ML SDV IVPUSH SCH (08:22)
[2021-08-30] MEDS: cloNIDine 0.1 MG Tab PO SCH (08:35)
[2021-08-30 12:01] VITALS: BP 122/69; PULSE 58
--- NOTE | 2021-08-30 13:08 | PCM.DCSUM1 ---
Discharge Summary - Discharge Data Discharge Date: 08/30/21 Discharge Disposition: Home, Self-Care 01 Condition: Stable - Referral to Home Health Primary Care Physician: Ken Hand MD - Discharge Diagnosis/Problem(s) (1) Asthma SNOMED Code(s): 493151476 ICD Code: J45.909 - UNSPECIFIED ASTHMA, UNCOMPLICATED Status: Acute Current Visit: No Qualifiers: Asthma severity: unspecified severity Asthma persistence: unspecified Asthma complication type: unspecified Qualified Code(s): J45.909 - Unspecified asthma, uncomplicated (2) Chest pain, rule out acute myocardial infarction SNOMED Code(s): 20734906 ICD Code: R07.9 - CHEST PAIN, UNSPECIFIED Status: Acute Current Visit: No - Patient Summary/Data Hospital Course: 56 yo female with pmh of Asthma, HTN, and DM, ETOH abuse, AYLA who presents with complaints of chest tightness, shortness of breath and left arm numbness. CXR and CT head showed no acute findings. PAtient was admitted for astham exacerbation and treated with solumedrol and duonebs. She had serial troponins which were negative and had no events on telemetry. Patient reports she has been taking her medications but they have not been refilled at her pharmacy. Her home antihypertensive medications were resumed with the addition of amlodipine for better blood pressure control. She was discharged home and given refills on her home medications for her asthma, hypertension and diabetes. She is to follow up with Dr. Ledezma. - Patient Instructions Diet: Diabetic Diet Activity: As Tolerated - Discharge Plan Prescriptions/Med Rec: Fluticasone Propion/Salmeterol [Advair 250-50 Diskus] 1 inh IH BID #1 inh Glimepiride [Amaryl] 2 mg PO DAILY #30 tab amLODIPine Besylate [Amlodipine Besylate] 10 mg PO DAILY #30 tablet atorvaSTATin [Lipitor] 40 mg PO BEDTIME 30 Days #30 tab Hydrochlorothiazide/Lisinopril [Lisinopril/HCTZ 10-12.5 MG] 1 tab PO DAILY #30 tab metFORMIN HCl [Metformin HCl] 500 mg PO BID #60 tab predniSONE [Prednisone] 40 mg PO DAILY 3 Days #6 tablet Albuterol Sulfate [Proair Hfa] 2 inh IH Q4HRRT PRN #1 inh PRN Reason: Shortness Of Breath Albuterol [Proventil Neb Soln] 2.5 mg NEB Q4HRRT PRN #30 cup PRN Reason: Wheezing Montelukast [Singulair] 10 mg PO BEDTIME #30 tab Home Medications: Home Meds Aspirin [Aspirin EC] 81 mg PO DAILY 11/08/20 [History] traMADol [Ultram] 50 mg PO Q6H PRN #7 tab 07/06/21 [Rx] Acetaminophen/oxyCODONE [Percocet 325-5 MG] 1 each PO Q6H PRN #18 tab 07/26/21 [Rx] Ibuprofen [Motrin] 600 mg PO Q6H PRN #20 tab 07/26/21 [Rx] Albuterol Sulfate [Proair Hfa] 2 inh IH Q4HRRT PRN #1 inh 08/30/21 [Rx] Albuterol [Proventil Neb Soln] 2.5 mg NEB Q4HRRT PRN #30 cup 08/30/21 [Rx] Fluticasone Propion/Salmeterol [Advair 250-50 Diskus] 1 inh IH BID #1 inh 08/30/21 [Rx] Glimepiride [Amaryl] 2 mg PO DAILY #30 tab 08/30/21 [Rx] Hydrochlorothiazide/Lisinopril [Lisinopril/HCTZ 10-12.5 MG] 1 tab PO DAILY #30 tab 08/30/21 [Rx] Montelukast [Singulair] 10 mg PO BEDTIME #30 tab 08/30/21 [Rx] amLODIPine Besylate [Amlodipine Besylate] 10 mg PO DAILY #30 tablet 08/30/21 [Rx] atorvaSTATin [Lipitor] 40 mg PO BEDTIME 30 Days #30 tab 08/30/21 [Rx] metFORMIN HCl [Metformin HCl] 500 mg PO BID #60 tab 08/30/21 [Rx] predniSONE [Prednisone] 40 mg PO DAILY 3 Days #6 tablet 08/30/21 [Rx] Patient Handouts: Acute Coronary Syndrome Referrals: Frances Ledezma MD [Resident] - 09/01/21 9:45 am - Discharge Summary/Plan Comment DC Time >30 min.: No Total # of Minutes for Discharge Time: 20 - Patient Data Vitals - Most Recent: Last Vital Signs Temp 36.1 C 08/30/21 12:00 Pulse 58 L 08/30/21 12:00 Resp 18 08/30/21 12:00 BP 122/69 08/30/21 12:00 Pulse Ox 97 08/30/21 12:00 Weight - Most Recent: 104.417 kg I&O - Last 24 hours: Intake & Output 08/29/21 08/30/21 08/30/21 22:59 06:59 14:59 Intake Total 800 1600 Output Total 350 Balance 800 1250 Lab Results - Last 24 hrs: Laboratory Results - last 24 hr 08/29/21 08/30/21 08/30/21 Range/Units 17:25 06:40 11:19 POC Glucose 299 H 126 H 282 H (70-99) mg/dL Med Orders - Current: Current Medications Acetaminophen (Acetaminophen 325 Mg Tab) 650 mg PO Q4H PRN PRN Reason: Pain (Mild 1-3)/fever Last Admin: 08/29/21 09:27 Dose: 650 mg Documented by: Albuterol (Albuterol 0.083% 2.5 Mg/3 Ml Neb Soln) 2.5 mg INH Q6HRRT [facility] Last Admin: 08/30/21 11:50 Dose: 2.5 mg Documented by: Amlodipine Besylate (Amlodipine 5 Mg Tab) 5 mg PO DAILY [facility] Last Admin: 08/30/21 08:20 Dose: 5 mg Documented by: Atorvastatin Calcium (Atorvastatin 40 Mg Tab) 40 mg PO BEDTIME [facility] Last Admin: 08/29/21 21:33 Dose: 40 mg Documented by: Clonidine HCl (Clonidine 0.1 Mg Tab) 0.1 mg PO Q12HR [facility] Last Admin: 08/30/21 08:35 Dose: 0.1 mg Documented by: Dextrose/Water (50% Dextrose In Water 50 Ml Syringe) 50 ml IVPUSH ASDIRECTED PRN PRN Reason: Hypoglycemia Glucagon (Glucagon,Human Recombinant 1 Mg Vial) 1 mg IM ASDIRECTED PRN PRN Reason: Hypoglycemia Lisinopril/HCTZ (Lisinopril/Hydrochlorothiazide 10-12.5 Mg Tab) 1 tab PO DAILY [facility] Last Admin: 08/30/21 08:20 Dose: 1 tab Documented by: Insulin Aspart (Insulin Aspart 100 Units/Ml 3 Ml Pen) 0 unit SUBCUT TIDAC [facility]; Protocol Last Admin: 08/30/21 11:22 Dose: 3 units Documented by: Methylprednisolone Sodium Succinate (Methylprednisolone Sodium Succinate 40 Mg/1 Ml Sdv) 40 mg IVPUSH DAILY [facility] Last Admin: 08/30/21 08:22 Dose: 40 mg Documented by: Montelukast Sodium (Montelukast 10 Mg Tab) 10 mg PO BEDTIME [facility] Last Admin: 08/29/21 21:34 Dose: 10 mg Documented by: Fluticasone/Salmeterol (Fluticasone/Salmeterol 250-50 Mcg Inhalation Powder 14/Diskus) 1 puff INH BID [facility] Last Admin: 08/30/21 08:11 Dose: 1 puff Documented by: Tramadol HCl (Tramadol 50 Mg Tab) 50 mg PO Q6H PRN PRN Reason: Pain Last Admin: 08/30/21 06:07 Dose: 50 mg Documented by: Discontinued Medications Clonidine HCl (Clonidine 0.1 Mg Tab) 0.1 mg PO Q12HR [facility] Hydralazine HCl (Hydralazine 20 Mg/Ml Sdv) 10 mg IVPUSH ONETIME ONE Stop: 08/28/21 17:09 Last Admin: 08/28/21 17:47 Dose: 10 mg Documented by: Ketorolac Tromethamine (Ketorolac 30 Mg/Ml Sdv) 30 mg IVPUSH ONETIME ONE Stop: 08/27/21 14:38 Last Admin: 08/27/21 14:55 Dose: 30 mg Documented by: Labetalol HCl (Labetalol 100 Mg/20 Ml Mdv) 20 mg IVPUSH ONETIME ONE; Protocol Stop: 08/28/21 08:04 Last Admin: 08/28/21 08:38 Dose: 20 mg Documented by: Labetalol HCl (Labetalol 100 Mg/20 Ml Mdv) 20 mg IVPUSH ONETIME ONE; Protocol Stop: 08/28/21 14:03 Last Admin: 08/28/21 14:13 Dose: 20 mg Documented by: Morphine Sulfate (Morphine 2 Mg/Ml Syringe) 2 mg IVPUSH ONETIME ONE Stop: 08/28/21 16:01 Last Admin: 08/28/21 16:09 Dose: 2 mg Documented by:
== END 2021-08-30 13:39 | disposition home or self-care (01) ==
LOC: MW.ED 11:44 → MW.MS 14:43
PROVIDERS: ADMIT Internal Medicine; ATTEND Internal Medicine
DX: J45.901 Unspecified asthma with (acute) exacerbation (principal); R07.89 Other chest pain; I10 Essential (primary) hypertension; E11.9 Type 2 diabetes mellitus without complications; G47.33 Obstructive sleep apnea (adult) (pediatric); I25.10 Atherosclerotic heart disease of native coronary artery without angina pectoris; E78.00 Pure hypercholesterolemia, unspecified; I25.2 Old myocardial infarction; K21.9 Gastro-esophageal reflux disease without esophagitis; Z20.822 Contact with and (suspected) exposure to COVID-19; Z79.899 Other long term (current) drug therapy; Z79.82 Long term (current) use of aspirin; Z79.84 Long term (current) use of oral hypoglycemic drugs
CPT/HCPCS: 36415; 70450; 71045; 80048; 80053; 82550; 82947; 83036; 83690; 83735; 84100; 84484; 85025; 87635; 93005; 94640; 96374; 96375; 96376; 99285; A9270; G0378; J0360; J1815; J1885; J2270; J2920; J3490; 99217; 99219; 99225; U0002

== ENCOUNTER 2021-09-16 17:44 | Emergency (ER) | payer MEDICAID ==
[2021-09-16 18:39] VITALS: BP 169/79; PULSE 81
[2021-09-16] MEDS ORDERED: Sodium Chloride 0.9% 2.5 ML Syringe FLUSH PRN (20:20)
[2021-09-16] MEDS ORDERED: Folic Acid 1 MG Tab PO ONE (20:20)
[2021-09-16] MEDS ORDERED: Sodium Chloride 0.9% 10 ML Syringe FLUSH PRN (20:20)
[2021-09-16] MEDS ORDERED: Thiamine 100 MG Tab PO ONE (20:20)
--- NOTE | 2021-09-16 20:24 | EDM.PDOC ---
ED HPI GENERAL MEDICAL PROBLEM - General Chief Complaint: Drug or Alcohol Abuse Stated Complaint: ALCOHOL WITHDRAWAL Time Seen by Provider: 09/16/21 20:02 - History of Present Illness INITIAL COMMENTS - FREE TEXT/NARRATIVE: Patient is a 56-year-old female history of multiple medical problems including substance abuse presents concerned about alcohol withdrawal. She states that she drinks approximately 1 pint of vodka daily and has for a long time. Her last drink was last night. She reports trouble with tremor and headache no nausea or vomiting no abdominal pain. She denies chest pain or shortness of breath. Symptoms are constant no exacerbating or alleviating factors radiation or other associated symptoms. - Related Data Allergies Allergy/AdvReac Type Severity Reaction Status Date / Time No Known Allergies Allergy Verified 08/27/21 18:21 Home Meds: Home Meds Aspirin [Aspirin EC] 81 mg PO DAILY 11/08/20 [History] traMADol [Ultram] 50 mg PO Q6H PRN #7 tab 07/06/21 [Rx] Acetaminophen/oxyCODONE [Percocet 325-5 MG] 1 each PO Q6H PRN #18 tab 07/26/21 [Rx] Ibuprofen [Motrin] 600 mg PO Q6H PRN #20 tab 07/26/21 [Rx] Albuterol Sulfate [Proair Hfa] 2 inh IH Q4HRRT PRN #1 inh 08/30/21 [Rx] Albuterol [Proventil Neb Soln] 2.5 mg NEB Q4HRRT PRN #30 cup 08/30/21 [Rx] Fluticasone Propion/Salmeterol [Advair 250-50 Diskus] 1 inh IH BID #1 inh [Rx] Glimepiride [Amaryl] 2 mg PO DAILY #30 tab 08/30/21 [Rx] Hydrochlorothiazide/Lisinopril [Lisinopril/HCTZ 10-12.5 MG] 1 tab PO DAILY #30 tab 08/30/21 [Rx] Montelukast [Singulair] 10 mg PO BEDTIME #30 tab 08/30/21 [Rx] amLODIPine Besylate [Amlodipine Besylate] 10 mg PO DAILY #30 tablet 08/30/21 [Rx] atorvaSTATin [Lipitor] 40 mg PO BEDTIME 30 Days #30 tab 08/30/21 [Rx] metFORMIN HCl [Metformin HCl] 500 mg PO BID #60 tab 08/30/21 [Rx] predniSONE [Prednisone] 40 mg PO DAILY 3 Days #6 tablet 08/30/21 [Rx] chlordiazePOXIDE [Librium] 25 mg PO TID PRN 5 Days #15 cap 09/17/21 [Rx] Past Medical History - Past Health History Medical/Surgical History: Denies Medical/Surgical History HEENT History: Reports: Other (See Below) Other HEENT History: ear infection Cardiovascular History: Reports: CAD, High Cholesterol, Hypertension, [place] Respiratory History: Reports: Asthma, Sleep Apnea Gastrointestinal History: Reports: GERD Genitourinary History: Reports: None 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 Musculoskeletal History: Reports: Other (See Below) Other Musculoskeletal History: ankle fracture - 2013 Neurological History: Reports: TIA Psychiatric History: Reports: None Endocrine/Metabolic History: Reports: Diabetes, Type II Hematologic History: Reports: None Immunologic History: Reports: None Oncologic (Cancer) History: Reports: None Dermatologic History: Reports: None - Infectious Disease History Infectious Disease History: Reports: Chicken Pox, Measles, Mumps - Past Surgical History Head Surgeries/Procedures: Reports: None HEENT Surgical History: Reports: None Cardiovascular Surgical History: Reports: None Respiratory Surgical History: Reports: None GI Surgical History: Reports: None Female Surgical History: Reports: None Endocrine Surgical History: Reports: None Neurological Surgical History: Reports: None Musculoskeletal Surgical History: Reports: Other (See Below) Other Musculoskeletal Surgeries/Procedures:: broke Left ankle Dermatological Surgical History: Reports: None Social & Family History - Family History Family Medical History: No Pertinent Family History Cardiac: Reports: Hypertension, [place] Respiratory: Reports: Asthma OBGYN: Reports: Musculoskeletal: Reports: Arthritis Neurological: Reports: CVA Endocrine/Metabolic: Reports: Diabetes, type II - Tobacco Use Tobacco Use Status *Q: Current Every Day Tobacco User Years of Tobacco use: 6 Packs/Tins Daily: 1 - Caffeine Use Caffeine Use: Reports: None - Alcohol Use Days Per Week of Alcohol Use: 2 Number of Drinks Per Day: 12 Total Drinks Per Week: 24 - Recreational Drug Use Recreational Drug Use: No ED ROS GENERAL - Review of Systems Review Of Systems: See Below Free Text/Narrative/Comment: General: No fever. Skin: No rash. Eyes: No vision problems. ENT: No sore throat. Neck: No neck stiffness. Respiratory: No shortness of breath. Cardiac: No chest pain. Gastrointestinal: No nausea, vomiting or abdominal pain. Urinary: No dysuria. Musculoskeletal: No myalgias/arthralgias. Neurologic: Per HPI ED EXAM, GENERAL - Physical Exam Exam: See Below Free Text/Narrative:: General Appearance: No acute distress, appears comfortable Skin: No rash HEENT: Normocephalic/atraumatic, sclera anicteric, mucous membranes moist Neck: Normal range of motion Chest and Lungs: Bilateral breath sounds, mild coarse diffuse wheezing consistent with her reported heavy smoking history Cardiovascular: Regular rate and rhythm Abdomen: Soft, non-tender Musculoskeletal: No edema or tenderness Neurologic: Awake, alert, no obvious deficits, moving all extremities, there is an intermittent right hand and right leg tremor that appears to come and go and be somewhat volitional there is no generalized tremor noted no signs of hallucinations Psychiatric: Appropriate, cooperative #1 Interpretation EKG Date: 09/17/21 Time: 00:57 EKG Interpretation Comments: Sinus rhythm rate of 97 right bundle branch block and left anterior fascicular block unchanged from prior not felt to represent acute ischemia Course - Vital Signs Last Recorded V/S: Last Vital Signs Temp 98.2 F 09/16/21 18:30 Pulse 81 09/16/21 18:30 Resp 16 09/16/21 18:30 BP 169/79 H 09/16/21 18:30 Pulse Ox 95 09/16/21 18:30 - Orders/Labs/Meds Orders: Active Orders 24 hr Category Date Time Status MAGNESIUM [CHEM] Stat Lab 09/17/21 03:21 Received Sodium Chloride 0.9% [Saline Flush] Med 09/16/21 20:20 Active 10 ml FLUSH ASDIRECTED PRN Sodium Chloride 0.9% [Saline Flush] Med 09/16/21 20:20 Active 2.5 ml FLUSH ASDIRECTED PRN Saline Lock Insert [OM.PC] Stat Oth 09/16/21 20:20 Ordered Medication Orders Sodium Chloride (Sodium Chloride 0.9% 10 Ml Syringe) 10 ml FLUSH ASDIRECTED PRN PRN Reason: Keep Vein Open Last Admin: 09/16/21 20:43 Dose: 10 ml Documented by: MADELIN Sodium Chloride (Sodium Chloride 0.9% 2.5 Ml Syringe) 2.5 ml FLUSH ASDIRECTED PRN PRN Reason: Keep Vein Open Last Admin: 09/16/21 20:43 Dose: 2.5 ml Documented by: MADELIN Labs: Laboratory Tests 09/16/21 09/16/21 09/17/21 Range/Units 21:33 21:33 03:05 WBC 7.17 (4.0-11.0) K/uL RBC 3.82 L (4.30-5.90) M/uL Hgb 10.8 L (12.0-16.0) g/dL Hct 32.3 L (36.0-46.0) % MCV 84.6 (80.0-98.0) fL MCH 28.3 (27.0-32.0) pg MCHC 33.4 (31.0-37.0) g/dL RDW Std Deviation 47.0 (28.0-62.0) fl RDW Coeff of Jeannette 15 (11.0-15.0) % Plt Count 198 (150-400) K/uL MPV 10.80 (7.40-12.00) fL Neut % (Auto) 61.5 (48.0-80.0) % Lymph % (Auto) 29.0 (16.0-40.0) % [place] % (Auto) 6.7 (0.0-15.0) % Eos % (Auto) 2.5 (0.0-7.0) % Baso % (Auto) 0.3 (0.0-1.5) % Neut # (Auto) 4.4 (1.4-5.7) K/uL Lymph # (Auto) 2.1 (0.6-2.4) K/uL [place] # (Auto) 0.5 (0.0-0.8) K/uL Eos # (Auto) 0.2 (0.0-0.7) K/uL Baso # (Auto) 0.0 (0.0-0.1) K/uL Nucleated RBC % 0.0 /100WBC Nucleated RBCs # 0 K/uL Sodium 140 142 (136-145) mmol/L Potassium 2.8 L 3.5 (3.5-5.1) mmol/L Chloride 100 105 (98-107) mmol/L Carbon Dioxide 26.2 26.8 (21.0-32.0) mmol/L BUN 18 22 H (7.0-18.0) mg/dL Creatinine 1.3 H 1.4 H (0.6-1.0) mg/dL Est Cr Clr Drug Dosing 45.87 42.59 mL/min Estimated GFR (MDRD) 51.0 46.8 ml/min Glucose 116 H 148 H (74-106) mg/dL Calcium 9.5 8.9 (8.5-10.1) mg/dL Magnesium 1.5 L (1.8-2.4) mg/dL Total Bilirubin 0.6 (0.2-1.0) mg/dL AST 19 (15-37) IU/L ALT 22 (14-63) IU/L Alkaline Phosphatase 64 (46-116) U/L Total Protein 7.2 (6.4-8.2) g/dL Albumin 3.7 (3.4-5.0) g/dL Globulin 3.5 (2.6-4.0) g/dL Albumin/Globulin Ratio 1.1 (0.9-1.6) Ethyl Alcohol <3 mg/dL Meds: Medications Generic Name Dose Route Start Last Admin Trade Name Freq PRN Reason Stop Dose Admin Sodium Chloride 10 ml 09/16/21 20:20 09/16/21 20:43 Sodium Chloride 0.9% 10 Ml Syringe FLUSH 10 ml ASDIRECTED PRN Administration Keep Vein Open Sodium Chloride 2.5 ml 09/16/21 20:20 09/16/21 20:43 Sodium Chloride 0.9% 2.5 Ml Syringe FLUSH 2.5 ml ASDIRECTED PRN Administration Keep Vein Open Discontinued Medications Generic Name Dose Route Start Last Admin Trade Name Freq PRN Reason Stop Dose Admin Diazepam 5 mg 09/17/21 00:17 09/17/21 00:32 Diazepam 10 Mg/2 Ml Syringe IVPUSH 09/17/21 00:18 5 mg ONETIME ONE Administration Folic Acid 1 mg 09/16/21 20:20 09/16/21 20:43 Folic Acid 1 Mg Tab PO 09/16/21 20:21 1 mg ONETIME ONE Administration Potassium Chloride 40 meq/ 100 mls @ 25 mls/hr 09/16/21 22:11 09/16/21 23:23 Premix IV 09/17/21 02:10 25 mls/hr ONETIME ONE Administration Lorazepam 1 mg 09/16/21 20:48 09/16/21 20:57 Lorazepam 1 Mg Tab PO 09/16/21 20:49 1 mg ONETIME ONE Administration Magnesium Oxide 800 mg 09/16/21 22:07 09/16/21 22:53 Magnesium Oxide 400 Mg Tab PO 09/16/21 22:08 800 mg ONETIME ONE Administration Potassium Chloride 40 meq 09/16/21 22:07 09/16/21 22:53 Potassium Chloride 20 Meq Tab.Er PO 09/16/21 22:08 40 meq ONETIME ONE Administration Thiamine HCl 100 mg 09/16/21 20:20 09/16/21 20:43 Thiamine 100 Mg Tab PO 09/16/21 20:21 100 mg ONETIME ONE Administration Departure - Departure Time of Disposition: 03:48 Disposition: Home, Self-Care 01 Condition: Good Clinical Impression: Hypokalemia, Hypomagnesemia Alcohol withdrawal Qualifiers: Complication of substance-induced condition: uncomplicated Qualified Code(s): F10.230 - Alcohol dependence with withdrawal, uncomplicated - Discharge Information *PRESCRIPTION DRUG MONITORING PROGRAM REVIEWED*: Yes *COPY OF PRESCRIPTION DRUG MONITORING REPORT IN PATIENT TREVOR: No Prescriptions: chlordiazePOXIDE [Librium] 25 mg PO TID PRN 5 Days #15 cap PRN Reason: alcohol withdrawal symptoms Instructions: Alcohol Withdrawal Syndrome, [id number] Forms: ED Department Discharge Additional Instructions: Your potassium and magnesium levels were low today this is a common problem for people who drink too much alcohol. You were given additional potassium and magnesium here in the emergency department. Is important your primary care doctor recheck your labs in 1 to 2 weeks to ensure that your labs are at appropr iate levels. You can take the Librium up to 3 times daily as needed for alcohol withdrawal symptoms. I encourage you to follow-up with one of the substance abuse resources included in your discharge paperwork. If you do not have a primary care doctor you can follow-up at one of the clinics listed below. [facility] [address] [place] [id number] [id number] The following information is given to patients seen in the emergency department who are being discharged to home. This information is to outline your options for follow-up care. We provide all patients seen in our emergency department wit h a follow-up referral. The need for follow-up, as well as the timing and circumstances, are variable depending upon the specifics of your emergency department visit. If you don't have a primary care physician on staff, we will provide you with a referral. We always advise you to contact your personal physician following an emergency department visit to inform them of the circumstance of the visit and for follow-up with them and/or the need for any referrals to a consulting specialist. The emergency department will also refer you to a specialist when appropriate. This referral assures that you have the opportunity for follow-up care with a specialist. All of these measure are taken in an effort to provide you with optimal care, which includes your follow-up. Under all circumstances we always encourage you to contact your private physician who remains a resource for coordinating your care. When calling for follow-up care, please make the office aware that this follow-up is from your recent emergency room visit. If for any reason you are refused follow-up, please contact the [facility] Emergency Department at and asked to speak to the emergency department charge nurse. Sepsis Event Note (ED) - Evaluation Sepsis Screening Result: No Definite Risk - Focused Exam Vital Signs: Vital Signs Temp Pulse Resp BP Pulse Ox 09/16/21 18:30 98.2 F 81 16 169/79 H 95 - My Orders Last 24 Hours: My Active Orders 09/16/21 20:20 Sodium Chloride 0.9% [Saline Flush] 10 ml FLUSH ASDIRECTED PRN Sodium Chloride 0.9% [Saline Flush] 2.5 ml FLUSH ASDIRECTED PRN Saline Lock Insert [OM.PC] Stat 09/17/21 03:21 MAGNESIUM [CHEM] Stat - Assessment/Plan Last 24 Hours: My Active Orders 09/16/21 20:20 Sodium Chloride 0.9% [Saline Flush] 10 ml FLUSH ASDIRECTED PRN Sodium Chloride 0.9% [Saline Flush] 2.5 ml FLUSH ASDIRECTED PRN Saline Lock Insert [OM.PC] Stat 09/17/21 03:21 MAGNESIUM [CHEM] Stat Assessment:: 56-year-old female history of hypertension as well as multiple other medical problems presenting with concern for alcohol withdrawal. To me her tremor seems inconsistent with alcohol withdrawal but formal CIWA is pending. Given her history labs including magnesium will be checked thiamine folate will be given. Will dose medications based on CIWA disposition to be guided by same. Patient scores relatively low and labs are unremarkable then discharged with Librium and resources may be appropriate. 2047: Initial CIWA was 7 will provide a dose of Ativan and reassess, labs remain pending. 5: Patient's magnesium and potassium are both quite low. Patient also with minimal renal insufficiency and likely some degree of dehydration. P.o. and IV electrolyte repletion has been ordered patient continues to complain of some withdrawal symptoms and will repeat CIWA. 0350: Pt resting comfortably without signs of active w/d. Repeat BMP with normal potassium. Pt's VS are good. Pt felt stable for dc. Return precautions discussed and understood.
[2021-09-16] MEDS ORDERED: LORazepam 1 MG Tab PO ONE (20:48)
[2021-09-16 22:00] LABS: BLOOD UREA NITROGEN,BUN 18 mg/dL (7.0-18.0); CARBON DIOXIDE,CO2 26.2 mmol/L (21.0-32.0); CHLORIDE,CL 100 mmol/L (98-107); GLUCOSE RANDOM 116 mg/dL (74-106); POTASSIUM,K 2.8 mmol/L (3.5-5.1); SODIUM,NA 140 mmol/L (136-145)
[2021-09-16] MEDS ORDERED: Magnesium Oxide 400 MG Tab PO ONE (22:07)
[2021-09-16] MEDS ORDERED: Potassium Chloride 20 MEQ Tab.ER PO ONE (22:07)
[2021-09-16] MEDS ORDERED: Potassium Chloride Riders 40 MEQ in Premix Bag 1 BAG IV ONE (22:11)
[2021-09-17 03:20] LABS: CARBON DIOXIDE,CO2 26.8 mmol/L (21.0-32.0); POTASSIUM,K 3.5 mmol/L (3.5-5.1)
[2021-09-17] MEDS ORDERED: Albuterol/Ipratropium 3.0-0.5 MG/3 ML Neb Soln NEB ONE ×2 (03:51→04:21)
== END 2021-09-17 04:44 | disposition home or self-care (01) ==
LOC: MW.ED 17:44
DX: F10.230 Alcohol dependence with withdrawal, uncomplicated (principal); E87.6 Hypokalemia; E83.42 Hypomagnesemia; I25.10 Atherosclerotic heart disease of native coronary artery without angina pectoris; E78.00 Pure hypercholesterolemia, unspecified; I10 Essential (primary) hypertension; I25.2 Old myocardial infarction; K21.9 Gastro-esophageal reflux disease without esophagitis; E11.9 Type 2 diabetes mellitus without complications; Z86.73 Personal history of transient ischemic attack (TIA), and cerebral infarction without residual deficits; Z79.82 Long term (current) use of aspirin; Z79.84 Long term (current) use of oral hypoglycemic drugs; Z72.0 Tobacco use; Y90.5 Blood alcohol level of 100-119 mg/100 ml
CPT/HCPCS: 36415; 80048; 80053; 80307; 83735; 85025; 93005; 96365; 96366; 96375; 99285-25; A9270-GY; J3360; J3480; J7620-GY

== ENCOUNTER 2021-10-03 21:01 | Observation (INO) | payer MEDICAID ==
[2021-10-03] MEDS ORDERED: methylPREDNISolone Sodium Succinate 40 MG/1 ML SDV IVPUSH ONE (21:21)
[2021-10-03] MEDS ORDERED: Nitroglycerin 0.4 MG Tab.SL SL ONE (21:29)
[2021-10-03] MEDS ORDERED: Pantoprazole 40 MG in Sodium Chloride 0.9% 10 ML IVPUSH SCH ×2 (21:30→22:30)
[2021-10-03] MEDS ORDERED: Aspirin 81 MG Tab.Chew PO STA (21:40)
[2021-10-03] MEDS ORDERED: Ipratropium 0.02% 0.5 MG/2.5 ML Neb Soln NEB ONE (21:41)
[2021-10-03 22:03] LABS: BLOOD UREA NITROGEN,BUN 26 mg/dL (7.0-18.0); CARBON DIOXIDE,CO2 24.2 mmol/L (21.0-32.0); CHLORIDE,CL 103 mmol/L (98-107); GLUCOSE RANDOM 84 mg/dL (74-106); POTASSIUM,K 3.6 mmol/L (3.5-5.1); SODIUM,NA 138 mmol/L (136-145)
[2021-10-04] MEDS ORDERED: 50% Dextrose in Water 50 ML Syringe IVPUSH PRN (00:04)
[2021-10-04] MEDS ORDERED: Glucagon,Human Recombinant 1 MG Vial IM PRN (00:04)
[2021-10-04] MEDS ORDERED: Acetaminophen 325 MG Tab PO PRN (00:11)
[2021-10-04] MEDS ORDERED: Morphine 2 MG/ML SYRINGE IVPUSH ONE (01:27)
[2021-10-04] MEDS ORDERED: Morphine 2 MG/ML SYRINGE IVPUSH PRN (01:28)
[2021-10-04] MEDS: Insulin Aspart 100 Units/ML 3 ML Pen SUBCUT SCH ×3 (07:43→18:03)
[2021-10-04] MEDS ORDERED: Aspirin 81 MG Tab.Chew PO SCH (09:00)
[2021-10-04] MEDS ORDERED: Calcium Carbonate 500 MG Tab.Chew PO ONE (12:30)
[2021-10-04] MEDS: amLODIPine 5 MG Tab PO SCH (13:01)
[2021-10-04] MEDS: Lisinopril/Hydrochlorothiazide 10-12.5 MG Tab PO SCH (13:01)
[2021-10-04] MEDS: Acetaminophen/oxyCODONE 325-5 MG Tab PO PRN ×2 (13:01→23:30)
[2021-10-04] MEDS: Pantoprazole 40 MG in Sodium Chloride 0.9% 10 ML IVPUSH SCH (13:02)
[2021-10-04] MEDS: methylPREDNISolone Sodium Succinate 40 MG/1 ML SDV IVPUSH SCH ×2 (13:03→20:02)
[2021-10-04] MEDS: Nitroglycerin 0.4 MG Tab.SL SL PRN ×3 (15:20→16:51)
[2021-10-04] MEDS: Morphine 2 MG/ML SYRINGE IVPUSH PRN (18:52)
[2021-10-04] MEDS: atorvaSTATin 40 MG Tab PO SCH (20:02)
[2021-10-04] MEDS: Albuterol/Ipratropium 3.0-0.5 MG/3 ML Neb Soln NEB PRN (20:02)
[2021-10-04] MEDS ORDERED: atorvaSTATin 40 MG Tab PO SCH (21:00)
[2021-10-05] MEDS: Acetaminophen/oxyCODONE 325-5 MG Tab PO PRN ×3 (06:16→17:22)
[2021-10-05 06:49] LABS: HEMOGLOBIN A1C 6.5 %
[2021-10-05] MEDS: Insulin Aspart 100 Units/ML 3 ML Pen SUBCUT SCH ×3 (07:35→17:18)
[2021-10-05] MEDS: Aspirin 81 MG Tab.Chew PO SCH (08:23)
[2021-10-05] MEDS: amLODIPine 5 MG Tab PO SCH (08:23)
[2021-10-05] MEDS: Lisinopril/Hydrochlorothiazide 10-12.5 MG Tab PO SCH (08:24)
[2021-10-05] MEDS: methylPREDNISolone Sodium Succinate 40 MG/1 ML SDV IVPUSH SCH ×3 (08:25→23:54)
[2021-10-05] MEDS: Albuterol/Ipratropium 3.0-0.5 MG/3 ML Neb Soln NEB PRN ×3 (10:37→21:13)
[2021-10-05] MEDS: Pantoprazole 40 MG in Sodium Chloride 0.9% 10 ML IVPUSH SCH (11:40)
[2021-10-05 14:47] LABS: POTASSIUM,K 4.8 mmol/L (3.5-5.1)
[2021-10-05] MEDS ORDERED: Lactated Ringers 1,000 ML IV SCH (18:00)
[2021-10-05] MEDS: atorvaSTATin 40 MG Tab PO SCH (20:19)
[2021-10-05] MEDS ORDERED: Montelukast 10 MG Tab PO SCH (21:00)
[2021-10-05] MEDS: Morphine 2 MG/ML SYRINGE IVPUSH PRN (21:13)
[2021-10-06] MEDS: Acetaminophen/oxyCODONE 325-5 MG Tab PO PRN ×3 (02:20→15:00)
[2021-10-06 07:14] LABS: BLOOD UREA NITROGEN,BUN 33 mg/dL (7.0-18.0); CARBON DIOXIDE,CO2 25.2 mmol/L (21.0-32.0); CHLORIDE,CL 99 mmol/L (98-107); GLUCOSE RANDOM 270 mg/dL (74-106); POTASSIUM,K 4.4 mmol/L (3.5-5.1); SODIUM,NA 135 mmol/L (136-145)
[2021-10-06] MEDS: Insulin Aspart 100 Units/ML 3 ML Pen SUBCUT SCH ×3 (07:44→17:56)
[2021-10-06] MEDS: methylPREDNISolone Sodium Succinate 40 MG/1 ML SDV IVPUSH SCH (07:50)
[2021-10-06] MEDS: Aspirin 81 MG Tab.Chew PO SCH (09:48)
[2021-10-06] MEDS: Lisinopril/Hydrochlorothiazide 10-12.5 MG Tab PO SCH (09:48)
[2021-10-06] MEDS: amLODIPine 5 MG Tab PO SCH (09:48)
[2021-10-06] MEDS: Morphine 2 MG/ML SYRINGE IVPUSH PRN (10:07)
[2021-10-06] MEDS: Albuterol/Ipratropium 3.0-0.5 MG/3 ML Neb Soln NEB PRN (10:08)
[2021-10-06] MEDS: Pantoprazole 40 MG in Sodium Chloride 0.9% 10 ML IVPUSH SCH (12:16)
[2021-10-06 19:00] VITALS: BP 149/71; PULSE 66
[2021-10-06] MEDS ORDERED: methylPREDNISolone Sodium Succinate 40 MG/1 ML SDV IVPUSH SCH (20:00)
== END 2021-10-06 18:15 | disposition home or self-care (01) ==
LOC: MW.ED 21:01 → MW.MS 22:32
PROVIDERS: ADMIT Student in an Organized Health Care Education/Training Program; ATTEND Student in an Organized Health Care Education/Training Program
DX: R07.89 Other chest pain (principal); I10 Essential (primary) hypertension; E11.9 Type 2 diabetes mellitus without complications; J45.909 Unspecified asthma, uncomplicated; I25.10 Atherosclerotic heart disease of native coronary artery without angina pectoris; E78.00 Pure hypercholesterolemia, unspecified; F17.210 Nicotine dependence, cigarettes, uncomplicated; J44.1 Chronic obstructive pulmonary disease with (acute) exacerbation; F10.10 Alcohol abuse, uncomplicated; G47.33 Obstructive sleep apnea (adult) (pediatric); Z86.73 Personal history of transient ischemic attack (TIA), and cerebral infarction without residual deficits; Z79.82 Long term (current) use of aspirin; Z79.899 Other long term (current) drug therapy; Z79.84 Long term (current) use of oral hypoglycemic drugs; Z20.822 Contact with and (suspected) exposure to COVID-19
CPT/HCPCS: 36415; 71045; 80048; 80053; 80061; 82947; 83036; 83735; 84100; 84439; 84443; 84484; 85025; 85730; 87635; 93005; 93306; 94640; 96374; 99285; A9270; C9113; J1815; J2270; J2920; J7120; J7620-GY; U0002

== ENCOUNTER 2021-11-07 23:35 | Observation (INO) | payer MEDICAID ==
[2021-11-07] MEDS: Aspirin 81 MG Tab.Chew PO ONE ×2 (23:50→23:56)
[2021-11-08 00:23] LABS: BLOOD UREA NITROGEN,BUN 18 mg/dL (7.0-18.0); CARBON DIOXIDE,CO2 22.3 mmol/L (21.0-32.0); CHLORIDE,CL 103 mmol/L (98-107); GLUCOSE RANDOM 124 mg/dL (74-106); POTASSIUM,K 3.1 mmol/L (3.5-5.1); SODIUM,NA 139 mmol/L (136-145)
[2021-11-08] MEDS ORDERED: Magnesium Oxide 400 MG Tab PO ONE (00:32)
[2021-11-08] MEDS ORDERED: Potassium Chloride 10% 20 MEQ/15 ML Soln 30 ML UD Cup PO ONE (00:32)
[2021-11-08] MEDS ORDERED: Albuterol/Ipratropium 3.0-0.5 MG/3 ML Neb Soln NEB ONE (00:49)
[2021-11-08] MEDS ORDERED: Lactated Ringers 1,000 ML IV STA (01:16)
[2021-11-08] MEDS ORDERED: predniSONE 20 MG Tab PO ONE (01:19)
[2021-11-08 01:37] LABS: CORONAVIRUS COVID-19 NAA NEGATIVE (NEGATIVE); INFLUENZA A NAA NEGATIVE (NEGATIVE); INFLUENZA B NAA NEGATIVE (NEGATIVE)
[2021-11-08] MEDS ORDERED: Glucagon,Human Recombinant 1 MG Vial IM PRN (02:46)
[2021-11-08] MEDS ORDERED: 50% Dextrose in Water 50 ML Syringe IVPUSH PRN (02:46)
[2021-11-08] MEDS: Insulin Aspart 100 Units/ML 3 ML Pen SUBCUT SCH ×3 (08:08→17:45)
[2021-11-08] MEDS: Albuterol/Ipratropium 3.0-0.5 MG/3 ML Neb Soln NEB SCH ×4 (09:08→23:00)
[2021-11-08] MEDS: Acetaminophen 325 MG Tab PO PRN ×2 (09:09→22:33)
[2021-11-08] MEDS: Morphine 2 MG/ML SYRINGE IVPUSH PRN ×3 (10:37→19:43)
[2021-11-08] MEDS: amLODIPine 5 MG Tab PO SCH (12:12)
[2021-11-08] MEDS: Hydrochlorothiazide 12.5 MG Cap PO SCH (12:12)
[2021-11-08] MEDS: Enoxaparin 40 MG/0.4 ML Syringe SUBCUT SCH (12:13)
[2021-11-08] MEDS: methylPREDNISolone Sodium Succinate 40 MG/1 ML SDV IVPUSH SCH (12:14)
[2021-11-08] MEDS: metFORMIN 500 MG Tab PO SCH (17:53)
[2021-11-08] MEDS: Montelukast 10 MG Tab PO SCH (20:29)
[2021-11-08] MEDS: atorvaSTATin 40 MG Tab PO SCH (20:29)
[2021-11-08] MEDS: Fluticasone/Salmeterol 250-50 MCG Inhalation Powder 14/Diskus INH SCH (20:29)
[2021-11-08] MEDS ORDERED: Morphine 2 MG/ML SYRINGE IM ONE (22:44)
[2021-11-08] MEDS ORDERED: Metoprolol Tartrate 25 MG Tab PO ONE (22:46)
[2021-11-08] MEDS ORDERED: Morphine 2 MG/ML SYRINGE IVPUSH ONE (23:07)
[2021-11-09] MEDS: Morphine 2 MG/ML SYRINGE IVPUSH PRN ×3 (03:40→20:01)
[2021-11-09 05:29] LABS: CARBON DIOXIDE,CO2 25.4 mmol/L (21.0-32.0); POTASSIUM,K 3.7 mmol/L (3.5-5.1)
[2021-11-09] MEDS: Albuterol/Ipratropium 3.0-0.5 MG/3 ML Neb Soln NEB SCH ×4 (06:02→23:34)
[2021-11-09] MEDS: Insulin Aspart 100 Units/ML 3 ML Pen SUBCUT SCH ×3 (07:31→17:34)
[2021-11-09] MEDS: amLODIPine 5 MG Tab PO SCH (08:42)
[2021-11-09] MEDS: Hydrochlorothiazide 12.5 MG Cap PO SCH (08:45)
[2021-11-09] MEDS: Fluticasone/Salmeterol 250-50 MCG Inhalation Powder 14/Diskus INH SCH ×2 (08:45→20:03)
[2021-11-09] MEDS: methylPREDNISolone Sodium Succinate 40 MG/1 ML SDV IVPUSH SCH (08:45)
[2021-11-09] MEDS: metFORMIN 500 MG Tab PO SCH ×2 (08:46→17:33)
[2021-11-09] MEDS: Glimepiride 2 MG Tab PO SCH (09:52)
[2021-11-09] MEDS: Acetaminophen 325 MG Tab PO PRN (09:53)
[2021-11-09] MEDS: Aspirin 81 MG Tab.EC PO SCH (11:00)
[2021-11-09] MEDS: Lisinopril/Hydrochlorothiazide 10-12.5 MG Tab PO SCH (11:00)
[2021-11-09] MEDS: Enoxaparin 40 MG/0.4 ML Syringe SUBCUT SCH (11:04)
[2021-11-09] MEDS: atorvaSTATin 40 MG Tab PO SCH (20:03)
[2021-11-09] MEDS: Montelukast 10 MG Tab PO SCH (20:03)
[2021-11-10] MEDS: Morphine 2 MG/ML SYRINGE IVPUSH PRN ×2 (02:17→09:29)
[2021-11-10] MEDS: Albuterol/Ipratropium 3.0-0.5 MG/3 ML Neb Soln NEB SCH ×2 (05:56→11:18)
[2021-11-10 06:28] LABS: BLOOD UREA NITROGEN,BUN 23 mg/dL (7.0-18.0); CARBON DIOXIDE,CO2 26.7 mmol/L (21.0-32.0); CHLORIDE,CL 101 mmol/L (98-107); GLUCOSE RANDOM 170 mg/dL (74-106); POTASSIUM,K 3.5 mmol/L (3.5-5.1); SODIUM,NA 137 mmol/L (136-145)
[2021-11-10] MEDS: Insulin Aspart 100 Units/ML 3 ML Pen SUBCUT SCH ×2 (08:06→13:32)
[2021-11-10] MEDS: amLODIPine 5 MG Tab PO SCH (08:07)
[2021-11-10] MEDS: Aspirin 81 MG Tab.EC PO SCH (08:08)
[2021-11-10] MEDS: Lisinopril/Hydrochlorothiazide 10-12.5 MG Tab PO SCH (08:08)
[2021-11-10] MEDS: Hydrochlorothiazide 12.5 MG Cap PO SCH (08:08)
[2021-11-10] MEDS: methylPREDNISolone Sodium Succinate 40 MG/1 ML SDV IVPUSH SCH (08:09)
[2021-11-10] MEDS: metFORMIN 500 MG Tab PO SCH (08:09)
[2021-11-10] MEDS: Fluticasone/Salmeterol 250-50 MCG Inhalation Powder 14/Diskus INH SCH (08:10)
[2021-11-10] MEDS: Enoxaparin 40 MG/0.4 ML Syringe SUBCUT SCH (10:49)
[2021-11-10] MEDS: Glimepiride 2 MG Tab PO SCH (10:50)
[2021-11-10 12:10] VITALS: BP 129/72; PULSE 63
== END 2021-11-10 12:55 | disposition home or self-care (01) ==
LOC: MW.ED 23:35 → MW.MS 11-08 01:47
PROVIDERS: ADMIT Internal Medicine; ATTEND Internal Medicine
DX: J45.901 Unspecified asthma with (acute) exacerbation (principal); R07.89 Other chest pain; I10 Essential (primary) hypertension; E11.9 Type 2 diabetes mellitus without complications; F10.10 Alcohol abuse, uncomplicated; G47.33 Obstructive sleep apnea (adult) (pediatric); I25.10 Atherosclerotic heart disease of native coronary artery without angina pectoris; E78.00 Pure hypercholesterolemia, unspecified; I25.2 Old myocardial infarction; F41.9 Anxiety disorder, unspecified; F32.A Depression, unspecified; E66.9 Obesity, unspecified; F17.200 Nicotine dependence, unspecified, uncomplicated; Z79.82 Long term (current) use of aspirin; Z79.84 Long term (current) use of oral hypoglycemic drugs; Z86.73 Personal history of transient ischemic attack (TIA), and cerebral infarction without residual deficits; Z79.899 Other long term (current) drug therapy; Z20.822 Contact with and (suspected) exposure to COVID-19
CPT/HCPCS: 0240U; 36415; 71045; 80048; 82947; 83735; 84484; 85025; 93005; 94640; 96372; 96374; 96375; 96376; 99285; A9270; G0378; J1650; J1815; J2270; J2920; J7120; 93010; 99283; J7620-GY

== ENCOUNTER 2021-12-05 20:15 | Emergency (ER) | payer MEDICAID ==
[2021-12-05] MEDS ORDERED: Sodium Chloride 0.9% 2.5 ML Syringe FLUSH PRN (20:17)
[2021-12-05] MEDS ORDERED: Morphine 4 MG/ML VIAL IVPUSH ONE ×2 (20:17→21:54)
[2021-12-05] MEDS ORDERED: Sodium Chloride 0.9% 10 ML Syringe FLUSH PRN (20:17)
[2021-12-05] MEDS ORDERED: Ondansetron 4 MG/2 ML SDV IVPUSH ONE (20:17)
[2021-12-05] MEDS ORDERED: Albuterol/Ipratropium 3.0-0.5 MG/3 ML Neb Soln NEB ONE ×2 (20:32→23:48)
[2021-12-05] MEDS ORDERED: methylPREDNISolone Sodium Succinate 125 MG/2 ML SDV IVPUSH ONE (20:32)
[2021-12-05] MEDS ORDERED: Albuterol 0.083% 2.5 MG/3 ML Neb Soln NEB ONE ×4 (21:13→23:49)
[2021-12-05 21:30] LABS: BLOOD UREA NITROGEN,BUN 15 mg/dL (7.0-18.0); CARBON DIOXIDE,CO2 26.6 mmol/L (21.0-32.0); CHLORIDE,CL 103 mmol/L (98-107); GLUCOSE RANDOM 178 mg/dL (74-106); POTASSIUM,K 3.5 mmol/L (3.5-5.1); SODIUM,NA 142 mmol/L (136-145)
[2021-12-05 23:46] VITALS: BP 133/67; PULSE 64
== END 2021-12-06 | disposition home or self-care (01) ==
LOC: MW.ED 20:15
DX: J45.21 Mild intermittent asthma with (acute) exacerbation (principal); I25.10 Atherosclerotic heart disease of native coronary artery without angina pectoris; E78.00 Pure hypercholesterolemia, unspecified; I10 Essential (primary) hypertension; I25.2 Old myocardial infarction; E11.9 Type 2 diabetes mellitus without complications; Z86.73 Personal history of transient ischemic attack (TIA), and cerebral infarction without residual deficits; Z79.82 Long term (current) use of aspirin; Z72.0 Tobacco use; Z79.84 Long term (current) use of oral hypoglycemic drugs; Z79.899 Other long term (current) drug therapy
CPT/HCPCS: 36415; 71045; 80053; 84484; 85025; 93005; 94640; 96374; 96375; 96376; 99285; J2270; J2405; J2930; 93010; 99283; J7620-GY

== ENCOUNTER 2022-01-04 09:08 | Emergency (ER) | payer MEDICAID ==
[2022-01-04] MEDS ORDERED: Sodium Chloride 0.9% 2.5 ML Syringe FLUSH PRN (09:10)
[2022-01-04] MEDS ORDERED: Sodium Chloride 0.9% 10 ML Syringe FLUSH PRN (09:10)
[2022-01-04] MEDS ORDERED: Albuterol/Ipratropium 3.0-0.5 MG/3 ML Neb Soln NEB ONE ×2 (09:26→10:13)
[2022-01-04] MEDS ORDERED: Morphine 4 MG/ML VIAL IVPUSH ONE ×3 (09:26→13:31)
[2022-01-04 10:48] LABS: BLOOD UREA NITROGEN,BUN 27 mg/dL (7.0-18.0); CARBON DIOXIDE,CO2 21.4 mmol/L (21.0-32.0); CHLORIDE,CL 104 mmol/L (98-107); GLUCOSE RANDOM 77 mg/dL (74-106); POTASSIUM,K 3.9 mmol/L (3.5-5.1); SODIUM,NA 141 mmol/L (136-145)
[2022-01-04] MEDS ORDERED: Ketorolac 30 MG/ML SDV IVPUSH ONE (11:30)
[2022-01-04 19:35] VITALS: BP 140/83; PULSE 92
== END 2022-01-04 13:58 | disposition home or self-care (01) ==
LOC: MW.ED 09:08
DX: R07.9 Chest pain, unspecified (principal); I25.10 Atherosclerotic heart disease of native coronary artery without angina pectoris; E78.00 Pure hypercholesterolemia, unspecified; I25.2 Old myocardial infarction; J45.909 Unspecified asthma, uncomplicated; I10 Essential (primary) hypertension; E11.9 Type 2 diabetes mellitus without complications; Z79.899 Other long term (current) drug therapy; Z79.82 Long term (current) use of aspirin; Z79.84 Long term (current) use of oral hypoglycemic drugs
CPT/HCPCS: 36415; 71045; 80053; 84484; 85025; 96374; 96375; 96376; 99285; J1885; J2270; J3490; J7620-GY

== ENCOUNTER 2022-01-04 14:50 | Emergency (ER) | payer MEDICAID ==
[2022-01-04] MEDS ORDERED: Acetaminophen/HYDROcodone 325-5 MG Tab PO ONE (16:12)
[2022-01-04 17:18] VITALS: BP 166/86; PULSE 74
== END 2022-01-04 17:21 | disposition home or self-care (01) ==
LOC: MW.ED 14:50
DX: R07.89 Other chest pain (principal); I25.10 Atherosclerotic heart disease of native coronary artery without angina pectoris; J45.909 Unspecified asthma, uncomplicated; E78.00 Pure hypercholesterolemia, unspecified; I25.2 Old myocardial infarction; I10 Essential (primary) hypertension; E11.9 Type 2 diabetes mellitus without complications; Z79.899 Other long term (current) drug therapy; Z79.82 Long term (current) use of aspirin; Z79.84 Long term (current) use of oral hypoglycemic drugs; W19.XXXA Unspecified fall, initial encounter
CPT/HCPCS: 71046; 99284; A9270

== ENCOUNTER 2022-01-08 23:35 | Emergency (ER) | payer MEDICAID ==
[2022-01-09] MEDS ORDERED: Chlorthalidone 25 MG Tab PO STA (01:02)
[2022-01-09 01:47] LABS: BLOOD UREA NITROGEN,BUN 21 mg/dL (7.0-18.0); CARBON DIOXIDE,CO2 29.9 mmol/L (21.0-32.0); CHLORIDE,CL 104 mmol/L (98-107); GLUCOSE RANDOM 128 mg/dL (74-106); POTASSIUM,K 3.9 mmol/L (3.5-5.1); SODIUM,NA 143 mmol/L (136-145)
[2022-01-09] MEDS ORDERED: Ibuprofen 600 MG Tab PO STA (01:57)
[2022-01-09 02:11] VITALS: BP 149/93; PULSE 74
== END 2022-01-09 02:10 | disposition home or self-care (01) ==
LOC: MW.ED 23:35
DX: I16.0 Hypertensive urgency (principal); E78.00 Pure hypercholesterolemia, unspecified; I25.10 Atherosclerotic heart disease of native coronary artery without angina pectoris; I10 Essential (primary) hypertension; I25.2 Old myocardial infarction; J45.909 Unspecified asthma, uncomplicated; E11.9 Type 2 diabetes mellitus without complications; Z79.899 Other long term (current) drug therapy; Z79.82 Long term (current) use of aspirin; Z79.84 Long term (current) use of oral hypoglycemic drugs
CPT/HCPCS: 36415; 80048; 93005; 99284; A9270